=== PATIENT | female | born 1945 | race Caucasian/White ===

== ENCOUNTER 2022-10-10 12:08 | Emergency (ER) | payer MEDICARE, BC, SELFPAY ==
--- OUTSIDE RECORDS SUMMARY | 2022-10-10 12:36 | XMS_ITS | Clinical Summary ---
:1945 Author Organization [employer] [facility] [place] [address] Care Team Providers Name Role Phone Autumn Escobedo Unavailable [phone] Behzad Pennington MD Primary Care Provider Allergies No known active allergies Medications Medication Sig Dispensed Refills Start Date End Date Status ZOLOFT ORAL 150 mg 0 Active AMBIEN ORAL 3 mg at bedtime 0 Ac tive MEDICATION ORDER apap/codeine 30mg 0 Active COMPOSER daily TRAZODONE 150 MG TAB daily 0 Active CENTRUM SILVER ORAL daily 0 Active CALCARB 600 WITH None Entered 0 Active VITAMIN D ORAL DIAZEPAM 5 MG TAB 5 mg Oral EVERY 6 30 0 12/01/2007 Active HOURS NEEDED HYDROCODONE-ACETAMINOP 1-2 tabs orally 120 0 12/01/2007 Active HEN 5 MG-500 MG TAB every 4-6 hours for pain SENNOSIDES-DOCUSATE 1-4 tablet Oral 90 0 12/01/2007 Active SODIUM 8.6 MG-50 MG TWICE A DAY TAB Active Problems Problem Noted Date Sensorineural hearing loss, bilateral 08/14/2012 Disorder of bone and cartilage, unspecified 03/27/2007 Immunizations Name Administration Dates Next Due Hepatitis A (Adult) 07/18/2007, 06/21/2006 Inactivated Polio Vaccine 06/21/2006 Meningococcal Vaccine 09/04/1998 Tdap 06/21/2006 Family History Medical History Relation Name Comments Psychiatric illness Father Heart Disease Mother Heart attack age 72 Relation Name Status Comments Father (Age 60's) committed rae icide Mother Social History Tobacco Use Types Packs/Day Years Used Date Never Smoker Tobacco Cessation: Counseling Given: Yes Alcohol Use Standard Drinks/Week Comments Not Asked 0 (1 standard drink = 0.6 oz pure alcoho l) Sex Assigned at Date Recorded Not on file Obstetrics History Last Filed Vital Signs Vital Sign Reading Time Taken Comments Blood Pressure 102/64 08/24/2016 1:52 PM CDT Pulse 60 08/24/2016 1:52 PM CDT Temperature 36.4 ??C (97.5 ??F) 04/09/2014 2:29 PM CDT Respiratory Rate 14 08/24/2016 1:52 PM CDT Oxygen Saturation 99% 04/21/2014 9:52 AM CDT Inhaled Oxygen Concentration - - Weight 46.4 kg (102 lb 6.4 oz) 08/24/2016 1:52 PM CDT Height 157.5 cm (5' 2.01) 04/21/2014 9:52 AM CDT Body Mass Index 18.72 04/21/2014 9:52 AM CDT Plan of Treatment Health Maintenance Due Date Last Done Comments COVID-19 vaccine series (#1) 1945 Depression screening for age 12+ 1957 BMI (ht and wt on same day) for age 18+ 1963 Hepatitis C screening for age 18-79 1963 Zoster (shingles) series for age 50+ (1 of 2) 1995 DEXA/DXA scan for age 65+ 2010 Pneumococcal series for age 65+ (1 - PCV) 2010 Tetanus booster 06/21/2016 06/21/2006 Influenza for age 65+ 07/21/2022 Tdap Completed 06/21/2006 Results Not on filefrom Last 3 Months Insurance Payer Benefit Plan / Subscriber ID Effective Dates Phone Addre ss Type Group BLUE [employer]OSS MR BL[employer] [id number] 2015-Present [address] [address] [place] 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
== END 2022-10-10 12:47 | disposition left against medical advice (07) ==
LOC: ED 12:30
PROVIDERS: PCP Family Medicine
DX: Z53.29 Procedure and treatment not carried out because of patient's decision for other reasons (principal)

== ENCOUNTER 2022-11-17 14:23 | Outpatient (CLI) | payer MEDICARE, BC, SELFPAY ==
--- NOTE | 2022-11-17 14:30 | CRLHL7_ITS ---
For Patients: As a result of the Cures Act, medical imaging exams and procedure reports are released immediately into your electronic medical record. You may view this report before your referring provider. If you have questions, please contact your health care provider. DXA BONE MINERAL DENSITY STUDY 11/17/2022 Current height (in): 61.0. Weight (lb): 102.0. Menopause age: 33. Ethnicity: White. 1. Have you had a previous hip or vertebral fracture? No. 2. Have you had any fractures during your adult life which did not result from significant trauma (e.g., auto accident)? No. 3. Did either of your parents have a hip fracture? No. 4. Do you smoke? No. 5. Have you ever taken Glucocorticoids? No. 6. Do you have rheumatoid arthritis? No. 7. Do you have secondary osteoporosis? No. 8. Do you drink 3 or more alcoholic drinks per day? No. 9. Are you being treated for osteoporosis? Yes. 10. Have you ever taken any of the following medications: Actonel, Evista, Fosamax, Miacalcin, Reclast, Boniva, Forteo, HRT (i.e. estrogen/hormone therapy), Protelos, Prolia, Vitamin D, Calcium, other ??? please specify. ANSWER: Yes, Fosamax, vitamin D, calcium. 11. Do you have any of the following medical conditions: Anorexia or bulimia, asthma or emphysema, end stage renal disease, hyperparathyroidism, any seizure disorders, cancer, inflammatory bowel diseases, hysterectomy, other ??? please specify. ANSWER: Yes, hysterectomy. 12. What was your maximum height (inches)? 63. 13. Do you perform weight bearing exercise regularly? Yes. 14. Do you regularly consume dairy products? Yes. 15. Do you drink caffeinated beverages? No. 16. At what age did your period start? 12. 17. Are you premenopausal? No. 18. How many full term pregnancies have you had? 3. 19. Have you ever missed your period for more than 6 months in a row (not including or menopause)? No. TECHNIQUE: Bone mineral density study was performed using the Zumbl. FINDINGS: The results of the study expressed as bone mineral density (BMD) are as follows: Lumbar spine L1 and 4: BMD: 1.123 g/cm2. T-score: 0.8. Z-score: 3.3. Neck Left: BMD: 0.782 g/cm2. T-score: -0.6. Z-score: 1.6. Total Left: BMD: 0.719 g/cm2. T-score: -1.8. Z-score: 0.1. Radius Left 33%: BMD: 0.511 g/cm2. T-score: -3.0. Z-score: -0.6. IMPRESSION: Osteoporosis. *Comparison exams done prior to 04/2020 were performed on different unit, [facility]. COMPARISON: Compared with scan of 05/07/2020, the bone mineral density has decreased by 5.0 percent at the spine and decreased by 2.4 percent at the hip and decreased by 5.0 percent at the forearm. Ed Fernandes M.D. Diagnostic Radiologist [email or web address] / be/Dictated by: Ed Fernandes MD @ 11/17/2022 3:30:00 PM (Electronically Signed)
== END 2022-11-17 14:24 | disposition home or self-care (01) ==
LOC: RAD 14:24
PROVIDERS: PCP Family Medicine; Visit Provider Family Medicine
DX: M81.0 Age-related osteoporosis without current pathological fracture (principal)
CPT/HCPCS: 77080

== ENCOUNTER 2023-05-11 15:21 | Outpatient (CLI) | payer MEDICARE, BC, SELFPAY ==
--- OUTSIDE RECORDS SUMMARY | 2023-05-11 15:23 | XMS_ITS | Continuity of Care Document ---
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 Role Phone Unavailable Unavailable Unavailable Medications Medication Instructions Dosage Effective Dates (start - stop) Status Comments HYDROCODONE BIT/ACETAMINOPHEN 5 MG-500MGCAPSULE every 8 hours as needed - Active Vicodin 5 mg-500 mg Tab 1-2 every 6-8 hours - Active Procedures Procedure Date Office/outpatient visit,est, low 2007 Low back disk surgery/decompress 2007 PA Assist Low back disk surgery/decompre ss Office consultation, moderate 7 X-ray exam lwr spine, min 4 views Advance Directives Directive Yes / No Effective Date File Name No Information Encounters Encounter Description Practice Location Reason(s) For Visit Diagnoses Date Provider Providers Copied on Encounter Z [facility], [address] [place], [place] [address]ite [address] [place] [address], [address], [place] tel:[phone] [employer] No Information 8 No Information Z [facility], [address] [place] [address], [address], [place] tel:[phone] [employer] No Information 8 Savanah Flores. [facility], [address] [place] [address], [address], [place], [place], [id number], [place]. tel:[phone] Office/outpa tient visit,est, low Z [facility], [address] [place] [address], [place], [address], [place] [phone] [employer] No Information 8 No Information Z [facility], [address] [address], [place], [address], [place] tel:[phone] [facility] No Information 8 No Information Office consultation , moderate Z [facility], [address] [address], [place], [address], [place] [phone] [employer] No Information 7 No Information Family History Family Member Type Diagnosis Age At Onset No Information Payers Payer name Insurance type Covered republican ID Authorpinky white(s) [facility] [id number] Social History Type Description Quantity Date Captured Comments Sex Female Smoking Status No Information Chief Complaint And Reason For Visit No Information Reason For Referral Reason For Referral No Information Plan Of Treatment Date Type Action Status No Information History Of Present Illness Encounter Date Complaint History Of Prese nt Illness No Information Functional Status Date Functional Assessmen t No Information Instructions Date Instruction Additional Infor mation No Information Assessments Type Assessment Date No Information Patient Care Teams Name Effective Dates (start - stop) Status Members No Information
--- OUTSIDE RECORDS SUMMARY | 2023-05-11 15:23 | XMS_ITS | Continuity of Care Document ---
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 Role Phone Federico Holley Unavailable Unavailable Allergies, Adverse Reactions, Alerts Substance Reaction Status Criticality No Known Allergies Active No Inform ation Medications Medication Instructions Dosage Effective Dates (start - stop) Status Comments ZOLOFT (unknown strength) take 1 tablet by oral route every day Not Available - Active CALCIUM (unknown strength) Not Available - Active TURMERIC (unknown strength) Not Available - Active Procedures Procedure Date Office/outpatient Visit, [facility] Advance Directives Directive Yes / No Effective Date File Name No Information Encounters Encounter Description Practice Location Reason(s) For Visit Diagnoses Date Provider Providers Copied on Encounter [facility], [address], [place], [place], [id number], [place] tel:[phone] ROBERTA Azar Primary generalized (osteo)arthritisPo lyneuropathy, unspecified 9 Wendy Caballero. [address], [address], [id number], [place]. tel:[phone] Office/outpa tient Visit, [facility], [address], [place], [place], [id number], [place] tel:[phone] ROBERTA Azar Neuropathy (chief complaint) NeuropathyPrimary osteoarthritis involving multiple joints 9 Wendy Caballero. [address], [place], [place], [id number], [place]. tel:[phone] Referring Provider: Elva Levi , [address], [place], [address] . tel:[phone] Family History Family Member Type Diagnosis Age At Onset Father Problem (finding) gout Payers Payer name Insurance type Covered libertarian ID Authorpinky white(s) Medicare [id number] [place] PPO [id number] Social History Type Description Quantity Date Captured Comments Alcohol Use Details Unknown Caffeine Use Details Unknown Tobacco Use Status No Information Smoking Status No Information Sex Female Chief Complaint And Reason For Visit No Information Reason For Referral Reason For Referral No Information Plan Of Treatment Date Type Action Status Referral Ordered: Neurology (related to Polyneuropathy, unspecified) ordered Referral Ordered: Referrals: Neurology. Diagnostic testing ordered Referral Ordered: Neurology (related to Neuropathy) ordered Referral Ordered: Referrals: Neurology. Consult. Diagnostic testing ordered History Of Present Illness Encounter Date Complaint History Of Prese nt Illness Neuropathy Functional Status Date Functional Assessmen t No Information Instructions Date Instruction Additional Infor mation No Information Assessments Type Assessment Date assessment Primary generalized (osteo)arthr itis assessment Polyneuropathy, unspecified Patient Care Teams Name Effective Dates (start - stop) Status Members No Information
--- NOTE | 2023-05-11 15:30 | CRLHL7_ITS ---
For Patients: As a result of the 21st Century Cures Act, medical imaging exams and procedure reports are released immediately into your electronic medical record. You may view this report before your referring provider. If you have questions, please contact your health care provider. INDICATION: Low back pain. TECHNIQUE: Multiplanar multisequence noncontrast MR images acquired through the lumbar spine. COMPARISON: Lumbar spine radiographs 10/17/2022. FINDINGS: Kzlp-hr-vaflalyj biconvex lumbar curvature. Exaggerated lumbar lordosis. Mild chronic L1 vertebral body anterior wedging. No acute fracture. No T1 hypointense marrow replacing lesions. Normal conus terminates at L1. T12-L1: Moderately advanced disc height loss. Circumferential disc bulge. Mild facet arthropathy. No spinal canal or neural foraminal narrowing. L1-2: Mild retrolisthesis. Advanced right eccentric disc height loss. Right eccentric disc bulging and endplate spondylitic ridging. Mild facet arthropathy. Minimal spinal canal narrowing. Ewwr-nn-qcdwcwyo right lateral recess narrowing. No neural foraminal narrowing. L2-3: Mild retrolisthesis. Advanced disc height loss. Posterior disc bulging endplate spondylitic ridging. Mild facet arthropathy. Mild spinal canal narrowing. Mild to moderate right lateral recess narrowing. Mild right without left neural foraminal narrowing. L3-4: Mild grade 1 anterolisthesis. Moderate disc degeneration and disc height loss. Posterior disc bulge. Advanced facet arthropathy. Moderate spinal canal narrowing. Moderately severe stenosis of the lateral recesses. No neural foraminal narrowing. Mild edema in the left articulating facets. L4-5: Advanced disc degeneration and left eccentric disc height loss. Left eccentric disc bulging and endplate spondylitic ridging. Advanced left and moderate right facet arthropathy. Mild spinal canal narrowing. Yqwu-og-ewupdkqn narrowing of the lateral recesses. Moderately severe left without right neural foraminal narrowing. L5-S1: Moderate disc degeneration. Posterior disc bulging and endplate spondylitic ridging. Advanced facet arthropathy. Thickening of the flavum. Mild spinal canal narrowing. Mild to moderate lateral recess narrowing. Mild left without right neural foraminal narrowing. Sacroiliac joint degenerative changes. IMPRESSION: 1. 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 Moderate spinal canal narrowing. Mild edema in the left articulating facets likely represents a stress response. 2. At L4-5, moderately severe left neural foraminal stenosis. Uxpb-eu-vukrwuso narrowing of the lateral recesses. 3. At L5-S1, mild to moderate narrowing of the lateral recesses. Dictated by Aleksandar Gardner MD @ 05/13/2023 1:02:48 PM (Electronically Signed)
== END 2023-05-11 15:22 | disposition home or self-care (01) ==
LOC: MRI 15:22
PROVIDERS: PCP Family Medicine; Visit Provider Family Medicine
DX: M54.50 Low back pain, unspecified (principal); M48.061 Spinal stenosis, lumbar region without neurogenic claudication; M51.27 Other intervertebral disc displacement, lumbosacral region
CPT/HCPCS: 72148

== ENCOUNTER 2023-07-13 12:41 | Outpatient (RCR) | payer MEDICARE, BC, SELFPAY ==
--- NOTE | 2023-06-28 09:38 | URNOTE ---
Received request for prior auth for REclast ([id number]). Pt has medicare primary, prior authorization is not required as services are based on medical necessity and follow medicare guidelines.
[2023-07-13 13:44] LABS: Basophils Absolute Auto 0.07 K/uL (0.00-0.30); Basophils Percent Auto 1.1 % (0.0-3.0); Eosinophils Absolute Auto 0.06 K/uL (0.00-0.50); Eosinophils Percent Auto 0.9 % (0.0-7.0); Hematocrit 42.9 % (33.0-51.0); Hemoglobin* 13.7 gm/dL (12.0-16.0); Immature Granulocytes Abs Auto 0.01 K/uL (0.00-0.30); Immature Granulocytes Pct Auto 0.2 %; Lymphocytes Absolute Auto 1.47 K/uL (0.90-2.90); Lymphocytes Percent Auto 22.3 % (20-44); Mean Corpuscular HGB Conc 32 gm/dL (32-36); Mean Corpuscular Hemoglobin 31 pg (26-34); Mean Corpuscular Volume 96 fL (80-100); Monocytes Percent Auto 6.5 % (0.0-11.0); Neutrophils Absolute Auto 4.55 K/uL (1.7-7.0); Platelet Count* 248 K/uL (140-440); RDW Coefficient of Variation % 13.1 % (11.5-15.5); Red Blood Count 4.46 m/uL (4.00-5.20); White Blood Count* 6.59 K/uL (4.50-11.00)
[2023-07-13 13:54] LABS: Slide Review Reflex No
[2023-07-13 14:01] LABS: Chloride* 103 mmol/L (96-114); Potassium* 4.9 mmol/L (3.6-5.1); Sodium* 139 mmol/L (135-149)
[2023-07-13 14:03] LABS: Creatinine* 0.8 mg/dL (0.5-1.5); Est. Creatinine Clearance* 33.53; Estimated Glomerular Filt Rate 75 ml/min
[2023-07-13 14:04] LABS: Anion Gap 6 mEq/L (7-15); Blood Urea Nitrogen* 30 mg/dL (7-30); Calcium* 9.5 mg/dL (8.4-10.6); Carbon Dioxide* 30 mmol/L (20-32); Glucose* 98 mg/dL (60-115)
[2023-07-13 14:16] VITALS: BP 99/59; PULSE 69; RESP 16; TEMP 37.1; O2SAT 100
[2023-07-14 09:02] LABS: Cholesterol* 221 mg/dL (90-199); Triglycerides* 137 mg/dL (40-149)
[2023-07-14 09:03] LABS: HDL Cholesterol* 101 mg/dL (>=50); LDL Cholesterol Calculated 93 mg/dL (<100)
== END 2024-01-09 23:59 | disposition home or self-care (01) ==
LOC: CCIC 12:41
PROVIDERS: PCP Family Medicine; Referring Provider Family Medicine; Visit Provider Family Medicine
DX: M81.0 Age-related osteoporosis without current pathological fracture (principal)
CPT/HCPCS: 36415; 80048; 80061; 85025; 96376; J3489

== ENCOUNTER 2024-02-27 07:54 | Outpatient (RCR) | payer MEDICARE, BC, SELFPAY | END 2024-02-27 09:54 | disposition home or self-care (01) | PROVIDERS: PCP Family Medicine; Visit Provider Orthopaedic Surgery Sports Medicine | DX: M16.12 Unilateral primary osteoarthritis, left hip (principal); Z51.89 Encounter for other specified aftercare | CPT/HCPCS: 97161; 97535 ==

== ENCOUNTER 2024-03-04 08:46 | Day surgery (SDC) | payer MEDICARE, BC, SELFPAY ==
[2024-03-04] VITALS (19 sets, daily range): BP systolic 82–124; BP diastolic 39–85; PULSE 51–98; RESP 12–18; TEMP 35.8–37; O2SAT 95–100; BMI 22.6
--- OUTSIDE RECORDS SUMMARY | 2024-03-04 08:51 | XMS_ITS | Clinical Summary ---
Author Name Unknown Organization [facility] Address [address] [place] [address] Phone Care Team Providers Care Licensed Final Expense Agents Name Role Phone Harini Scott MD Primary Care Provider Provider, Generic External Data Unavailable Unavailable Allergies No known active allergies Medications Medication Sig Dispensed Refills Start Date End Date Status FISH OIL-CANOLA OIL-VIT D3 PO Active fluorouracil (Efudex) 5 % cream 02/18/2021 Active Glucosamine HCl (GLUCOSAMINE PO) Take 1 capsule by mouth 1 (one) time each day. Active calcium carbonate-vitamin D 600-200 MG-UNIT tablet Take by mouth. Active Multiple Vitamins-Minerals (multivit-mineral -iron-lutein) tablet Take by mouth in the morning. Active Calcium 280 MG tablet Take 1 tablet by mouth 1 (one) time each day. Active triamcinolone (Kenalog) 0.1 % cream 10/25/2021 Active sertraline (Zoloft) 100 MG tablet Take by mouth. Active montelukast (Singulair) 10 MG tabletIndications :Allergic rhinitis, unspecified seasonality, unspecified trigger Take 1 tablet (10 mg) by mouth at bedtime. 90 tablet 01/14/2022 Active donepezil (Aricept) 10 MG tablet TAKE 1/2 TABLET BY MOUTH AT BEDTIME FOR 2 WEEKS THEN TAKE 1 TABLET AT BEDTIME 10/23/2023 Active gabapentin (Neurontin) 300 MG capsule TAKE 1 CAPSULE ORALLY TWICE A DAY 10/24/2023 Active HYDROcodone-aceta minophen (Delray) 5-325 MG tablet 09/15/2023 Active zolpidem (Ambien) 5 MG tablet Take 1 tablet (5 mg) by mouth if needed at bedtime for sleep. 10/24/2023 Active valACYclovir (Valtrex) 1 g tablet TAKE 2 TABLETS BY MOUTH TWICE A DAY FOR 1 DAY 10/24/2023 Active traZODone (Desyrel) 100 MG tablet Take 2 tablets (200 mg) by mouth at bedtime. 11/08/2023 Active Azelastine HCl 137 MCG/SPRAY solutionIndicatio ns:Allergic rhinitis, unspecified seasonality, unspecified trigger SPRAY 1 SPRAY INTO EACH NOSTRIL IN THE MORNING AND BEFORE BEDTIME DIRECTED 20 mL 1 02/05/2024 Active azelastine (Astelin) 0.1 % nasal sprayIndications: Allergic rhinitis, unspecified seasonality, unspecified trigger Administer 1 spray into each nostril in the morning and 1 spray before bedtime. Use in each nostril as directed. 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 Osteopenia 12/16/2022 Allergic rhinitis 01/14/2022 History of COVID-19 10/27/2021 Hearing aid worn 10/27/2021 History of Lyme disease 11/22/2019 History of squamous cell carcinoma 11/22/2019 Insomnia 11/22/2019 Osteoporosis 11/22/2019 Overview: Annotation - 22Nov2019: TOOK FOSAMAX IN PAST 11/2021-hip osteopenia Depression, major, in partial remission 11/22/19 20 Encounters Date Type Department Care Team Description 02/04/2024 Refill Harini Scott MD [address] [place] [address] Harini Scott MD Allergic rhinitis, unspecified seasonality, unspecified trigger 02/01/2024 Orders Only Harini Scott MD [address] [place] [address] Harini Scott MD 02/01/2024 Telephone Harini Scott MD [address] [place] [phone] Harini Scott MD 01/18/2024 11:30 AM [facility] Office Visit Harini Scott MD [address] [place] [address] Harini Scott MD Anxiety (Primary Dx) 01/12/2024 Orders Only Harini Scott MD [address] [place] [address] Harini Scott MD 12/18/2023 11:15 AM [facility] Office Visit Harini Scott MD [address] [place] [address] Harini Scott MD Allergic rhinitis, unspecified seasonality, unspecified trigger (Primary Dx); Anxiety; Insomnia, unspecified type from Last 3 Months Immunizations Name Administration Dates Next Due Hep A, Adult 07/18/2007,06/21/2006 Hep B, adult 04/22/2013,08/16/2012,07/12/2012 IPV 06/21/2006 Influenza, High Dose Seasona l, Preservative Free 10/06/2019,08/20/2019 Influenza, High-dose Seasona l, Quadrivalent, Preservative Free 08/20/2021,08/10/2020 Influenza, injectable, quadr ivalent, preservative free 07/31/2022,08/13/2020,08/29/2018,08/16,11/28/2015,08/08/2013,08/16/2012 ,08/26/2011,08/27/2010,08/17/2009 Meningococcal, Unknown Serogroups 09/04/1998 Moderna Covid-19 Bivalent Vaccine 07/31/2022 Moderna Sars-cov-2 Vaccine 02/22/2022,01/26/2021 ,12/26/2020 Pneumococcal Conjugate PCV 13 06/18/2015 Pneumococcal Polysaccharide PPV23 06/27/2018, TD (adult), 2 Lf tetanus tox oid, preservative free, adsorbed 05/15/2018 Tdap 08/26/2011,06/21/2006 Typhoid, ViCPs 07/02/2012 Zoster, Recombinant 08/01/2019,06/27/2018 Zoster, live 11/21/2016 Social History Tobacco Use Types Packs/Day Years Used Date Smoking Tobacco: Never Smokeless Tobacco: Never Alcohol Use Standard Drinks/Week Comments Yes 7 (1 standard drink = 0.6 oz pur e alcohol) Social Connection and Isolation Panel [NHANES] A nswer Date Recorded In a typical week, how many times do you talk on the phone with family, friends, or neighbors? Three times a week 11/21/19 How often do you get togethe r with friends or relatives? Once a week 11/21/2023 Attends Bahai Services Not on file 11/21 Do you belong to any clubs o r organizations such as zoroastrianism groups, unions, fraternal or athletic groups, or school groups? Yes 11/21/2023 How often do you attend meet ings of the clubs or organizations you belong to? 1 to 4 times per year 11/21/2023 Are you , , di vorced, , never , or living with a partner? 11/21/2023 AUDIT-C Answer Date Recorded Q1: How often do you have a drink containing alcohol? 4 or more times a week 11/21/2023 Q2: How many drinks containi ng alcohol do you have on a typical day when you are drinking? 1 or 2 Q3: How often do you have si x or more drinks on one occasion? Never 11/21/2023 Overall Financial Resource Strain (CARDIA) Answe r Date Recorded How hard is it for you to pa y for the very basics like food, housing, medical care, and heating? Not hard at all 11/21/2023 PHQ-2 Answer Date Recorded Patient Health Questionnaire-2 Score 4 11/21/2023 [facility] [place] of Occupat ional Health - Occupational Stress Questionnaire Answer Date Recorded Do you feel stress - tense, restless, nervous, or anxious, or unable to sleep at night because your mind is troubled all the time - these days? Rather much 11/21/2023 Exercise Vital Sign Answer Date Recorde d On average, how many days pe r week do you engage in moderate to strenuous exercise (like a brisk walk)? 4 days 11/21/2023 On average, how many minutes do you engage in exercise at this level? 50 min 11/21/2023 Hunger Vital Sign Answer Date Recorded Within the past 12 months, y ou worried that your food would run out before you got the money to buy more. Never true 11/21/19 24 Within the past 12 months, t he food you bought just didn't last and you didn't have money to get more. Never true 11/21/2023 PRAPARE - Transportation Answer Date Re corded In the past 12 months, has l ack of transportation kept you from medical appointments or from getting medications? No 12/2023 In the past 12 months, has l ack of transportation kept you from meetings, work, or from getting things needed for daily living? No 11/21/2023 Housing Stability Vital Sign Answer Waqas e Recorded In the last 12 months, was t here a time when you were not able to pay the mortgage or rent on time? No 11/21/2023 In the last 12 months, how many places have you lived? 2 11/21/2023 In the last 12 months, was t here a time when you did not have a steady place to sleep or slept in a half-way (including now)? No 11/21/2023 Sex and Gender Information Value Date Recorded Sex Assigned at Not on file Gender Identity Not on file Sexual Orientation Not on file Last Filed Vital Signs Vital Sign Reading Time Taken Comments Blood Pressure 136/74 11/21/2023 8:50 AM MST Pulse 67 11/21/2023 8:50 AM MST Temperature 36.7 ??C (98 ??F) 11/21/2023 8:50 AM MST Respiratory Rate - - Oxygen Saturation 98% 11/21/2023 8:50 AM MST Inhaled Oxygen Concentration - - Weight 45.8 kg (101 lb) 11/21/2023 8:50 AM MST Height 156.2 cm (5' 1.5) 11/21/2023 8:50 AM MST w/ shoes Body Mass Index 18.77 11/21/2023 8:50 AM MST Plan of Treatment Health Maintenance Due Date Last Done Comments RSV 60+ Series (1 - 1-dose 60+ series) 2005 COVID-19 Vaccine ( season) 2023 07/31/2022, 02/22/2022, 01/26/2021, Additional history exists Influenza Vaccine (Season Ended) 2024 07/31/2022, 08/20/2021, 08/13/2020, Additional history exists Bone Density Scan 10/28/2024 10/28/2022, , 11/23/2021, Additional history exists Medicare Annual Wellness (AWV) 11/22/2024 11/21/2023, 11/21/2022 Hepatitis A Vaccines Aged Out 07/18/2007, 06/21/20 06 No longer eligible based on patient's age to complete this topic Hepatitis B Vaccines Completed 04/22/2013, 08/16/2012, 07/12/2012 DTaP/Tdap/Td Vaccines Discontinued 05/15/2018 , 08/26/2011, 06/21/2006 Pneumococcal Vaccine: 65+ Years Completed 06/27/2018, 06/18/2015, 08/09/2010 Zoster Vaccine Discontinued 08/01/2019, 0806/2018, 11/21/2016 Hepatitis C Screening Completed 10/27/2021 HIB Vaccines Aged Out No longer eligi ble based on patient's age to complete this topic HPV Vaccines Aged Out No longer eligi ble based on patient's age to complete this topic Meningococcal Vaccine Aged Out No juan carlos genny eligible based on patient's age to complete this topic RSV Series Aged Out No longer eligible based on patient's age to complete this topic Rotavirus Vaccines Aged Out No longer eligible based on patient's age to complete this topic Procedures Procedure Name Priority Date/Time Associated Diagnosis Comments DEXA BONE DENSITY 10/28/2022 2:2 6 PM [facility] HEPATITIS C ANTIBODY Routine 10/27/2021 11:05 AM [facility] Need for hepatitis C screening test from Last 3 Months or Most Recently Relevant to Health Maintenance Results * DEXA BONE DENSITY (10/28/2022 2:26 PM [facility]) Anatomical Region Laterality Modality Body Radiographic Nakia ging [facility] IMG DXA PRO CEDURES * Hepatitis C antibody (10/27/2021 11:05 AM [facility]) Hepatitis C Ab Nonreactive NON-REACT YARY 10/27/2021 3:30 PM [facility] Blood Venous blood specimen / Unknown Venipuncture / Unknown 10/27/2021 11:05 AM [facility] 10/27/2021 11:05 AM [facility] Narrative [facility] - 10/27/2021 3:30 PM [facility] REACTIVE: Presumptive evidence of antibodies to HCV; follow CDC recommendations for supplemental testing. GRAYZONE: Antibodies to HCV may or may not be present. Another specimen should be obtained from the individual for further testing. NONREACTIVE: Antibodies to HCV not detected; does not exclude early acute HCV infection. Harini Scott MD LAB BLOOD ORDERABLES [facility] [address] [place] [address] from Last 3 Months or Most Recently Relevant to Health Maintenance Care Teams Licensed Final Expense Agents Relationship Specialty Start Date End Date Harini Scott MD [address] [place] [address] PCP - General 11/20/20 Provider, Generic External Data 10/27/21
--- OUTSIDE RECORDS SUMMARY | 2024-03-04 08:51 | XMS_ITS | Encounter Summary ---
Author Name Unknown Organization [facility] Address [address] [place] [address] Phone Care Team Providers Care Italian Lecturer Name Role Phone Harini Scott MD Primary Care Provider [phone] Provider, Generic External Data Unavailable Unavailable Reason for Visit * Reason Comments Follow-up Encounter Details Date Type Department Care Team (Late st Contact Info) Description 12/18/2023 11:15 AM [facility] Office Visit Harini Scott MD [address] [place] [address] Harini Scott MD [address] [place] [address] Allergic rhinitis, unspecified seasonality, unspecified trigger (Primary Dx); Anxiety; Insomnia, unspecified type Social History Tobacco Use Types Packs/Day Years [...] or relatives? Once a week 11/21/2023 Attends Confucianist Services Not on file 11/21 Do you belong to any clubs o r organizations such as catholic groups, unions, fraternal or athletic groups, or [...] Recorded Patient Health Questionnaire-2 Score 4 11/21/2023 [facility] of Occupat ional Health - Occupational Stress [...] place to sleep or slept in a fdc (including now)? No 11/21/2023 Sex and Gender Information Value Date Recorded Sex Assigned at Not on file Gender Identity Not on file Sexual Orientation Not on file documented as of this encounter Patient Instructions * Patient Instructions* Jeanne Asencio MA - 12/18/2023 11:15 AM MST Try azelastine. Cont counseling. Cont buspar but increase to 10 mg twice a day. Thv in a month. documented in this encounter Progress Notes * Harini Scott MD - 12/18/2023 11:15 AM MST Chief Complaint Patient presents with Follow-up Hpi Kylie is here for fu anxiety. She was prescribed buspar 5 mg bid. She really likes buspar. She was referred to roman randhawa for counseling and she really like her. She has insomnia which she thinksis from anxiety. She has a gi appt. She needs cataract surgery in the right eye. She has allergic rhinitis and would like to see an psychology clinician. Otc antihistamines do not help. Pe Neuro-nonfocal. Kylie was seen today for follow-up. Diagnoses and all orders for this visit: 1. Allergic rhinitis, unspecified seasonality, unspecified trigger - azelastine (Astelin) 0.1 % nasal spray; Administer 1 spray into each nostril in the morning and 1spray before bedtime. Use in each nostril as directed. 2. Anxiety - busPIRone (Buspar) 5 MG tablet; Take 2 tablets (10 mg) by mouth in the morning and 2 tablets (10 mg) before bedtime. 3. Insomnia, unspecified type Plan Try azelastine. Cont counseling. Cont buspar but increase to 10 mg twice a day. Thv in a month. documented in this encounter Plan of Treatment Not on file documented as of this encounter Visit Diagnoses Diagnosis Allergic rhinitis, unspecified seasonality, unspecified trigger- Primary Anxiety Anxiety state, unspecified Insomnia, unspecified type documented in this encounter Care Teams Italian Lecturer Relationship Specialty Start Date End Date Harini Scott MD [address] [facility] [address] [place] [phone] PCP - General 11/20/20 Provider, Generic External Data 10/27/21 documented as of this encounter
--- OUTSIDE RECORDS SUMMARY | 2024-03-04 08:51 | XMS_ITS | Referral Summary ---
Author Name Unknown Organization [facility] Address [address] [place] [address] Phone Care Team Providers Care Real Estate Associate Attorney Name Role Phone Harini Scott MD Primary Care Provider [phone] Provider, Generic External Data Unavailable Unavailable Encounters Date Type Department Care Team Description 02/04/2024 Refill Harini Scott MD [address] [place] [address] Harini Scott MD Allergic rhinitis, unspecified seasonality, unspecified trigger 02/01/2024 Orders Only Harini Scott MD [address] [place] [address] Harini Scott MD 02/01/2024 Telephone Harini Scott MD [address] [place] [address] Harini Scott MD 01/18/2024 11:30 AM [facility] Office Visit Harini Scott MD [address] [place] [address] Harini Scott MD Anxiety (Primary Dx) 01/12/2024 Orders Only Harini Scott MD [address] [place] [address] Harini Scott MD 12/18/2023 11:15 AM [facility] Office Visit Harini Scott MD [address] [place] [address] Harini Scott MD Allergic rhinitis, unspecified seasonality, unspecified trigger (Primary Dx); Anxiety; Insomnia, unspecified type from Last 3 Months Allergies No known active allergies Medications Medication [...] TWICE A DAY 10/24/2023 Active HYDROcodone-aceta minophen ([place]) 5-325 MG tablet 09/15/2023 Active zolpidem (Ambien) [...] Depression, major, in partial remission 11/22/19 20 Immunizations Name Administration Dates Next Due Hep [...] or relatives? Once a week 11/21/2023 Attends Zoroastrian Services Not on file 11/21 Do you belong to any clubs o r organizations such as latter-day groups, unions, fraternal or athletic groups, or [...] Recorded Patient Health Questionnaire-2 Score 4 11/21/2023 [facility] [place] of Occupat ional Health - Occupational Stress [...] place to sleep or slept in a penitentiary (including now)? No 11/21/2023 Sex and Gender [...] 11/21/2023 8:50 AM MST Plan of Treatment Not on file Procedures Procedure Name Priority Date/Time Associated Diagnosis Comments DEXA BONE DENSITY 10/28/2022 2:2 6 PM MST HEPATITIS C ANTIBODY Routine 10/27/2021 11:05 AM [facility] Need for hepatitis C screening test from Last 3 Months or Most Recently Relevant to Health Maintenance Results * DEXA BONE DENSITY (10/28/2022 2:26 PM [facility]) Anatomical Region Laterality Modality Body Radiographic Nakia ging [facility] IMG DXA PRO CEDURES * Hepatitis C antibody (10/27/2021 11:05 AM [facility]) Hepatitis C Ab Nonreactive NON-REACT YARY 10/27/2021 3:30 PM [facility] [place] [facility] Blood Venous blood specimen / Unknown Venipuncture / Unknown 10/27/2021 11:05 AM [facility] 10/27/2021 11:05 AM [facility] Narrative [facility] - 10/27/2021 3:30 PM [facility] REACTIVE: Presumptive evidence of antibodies to HCV; follow CDC recommendations for supplemental testing. GRAYZONE: Antibodies to HCV may or may not be present. Another specimen should be obtained from the individual for further testing. NONREACTIVE: Antibodies to HCV not detected; does not exclude early acute HCV infection. Harini Scott MD LAB BLOOD ORDERABLES [facility] [address] [place] [address] from Last 3 Months or Most Recently Relevant to Health Maintenance Care Teams Real Estate Associate Attorney Relationship Specialty Start Date End Date Harini Scott MD [address] [facility] [address] [place] [phone] PCP - General 11/20/20 Provider, Generic External Data 10/27/21
--- OUTSIDE RECORDS SUMMARY | 2024-03-04 08:51 | XMS_ITS | Encounter Summary ---
Author Name Unknown Organization [facility] Address [address] [place] [address] Phone Care Team Providers Care Bull Ladle Tender Name Role Phone Harini Scott MD Primary Care Provider [phone] Provider, Generic External Data Unavailable Unavailable Encounter Details Date Type Department Care Team (Late st Contact Info) Description 02/01/2024 Orders Only Harini Scott MD [address] [place] [address] Harini Scott MD [address] [place] [address] Social History Tobacco Use Types Packs/Day Years [...] or relatives? Once a week 11/21/2023 Attends Hindu Services Not on file 11/21 Do you belong to any clubs o r organizations such as rastafarian groups, unions, fraternal or athletic groups, or [...] Recorded Patient Health Questionnaire-2 Score 4 11/21/2023 [facility] of Occupat ional Health - Occupational [...] place to sleep or slept in a group home (including now)? No 11/21/2023 Sex and Gender Information Value Date Recorded Sex Assigned at Not on file Gender Identity Not on file Sexual Orientation Not on file documented as of this encounter Plan of Treatment Not on file documented as of this encounter Visit Diagnoses Not on filedocumented in this encounter Care Teams Bull Ladle Tender Relationship Specialty Start Date End Date Harini Scott MD [address] [place] [phone] PCP - General 11/20/20 Provider, Generic External Data 10/27/21 documented as of this encounter
--- OUTSIDE RECORDS SUMMARY | 2024-03-04 08:51 | XMS_ITS | Encounter Summary ---
Author Name Unknown Organization [facility] Address [address] [place] [address] Phone Care Team Providers Care Civil Division Deputy Sheriff Name Role Phone Harini Scott MD Primary Care Provider [phone] Provider, Generic External Data Unavailable Unavailable Encounter Details Date Type Department Care Team (Late st Contact Info) Description 01/12/2024 Orders Only Harini Scott MD [address] [place] [address] Harini Scott MD [address] [place] [address] Social History Tobacco Use Types [...] or relatives? Once a week 11/21/2023 Attends Quaker Services Not on file 11/21 Do you belong to any clubs o r organizations such as yarsanism groups, unions, fraternal or athletic groups, or [...] Recorded Patient Health Questionnaire-2 Score 4 11/21/2023 [facility] of Occupat ional Health - Occupational [...] place to sleep or slept in a halfway (including now)? No 11/21/2023 Sex and Gender Information Value Date Recorded Sex Assigned at Not on file Gender Identity Not on file Sexual Orientation Not on file documented as of this encounter Plan of Treatment Not on file documented as of this encounter Visit Diagnoses Not on filedocumented in this encounter Care Teams Civil Division Deputy Sheriff Relationship Specialty Start Date End Date Harini Scott MD [address] [place] [phone] PCP - General 11/20/20 Provider, Generic External Data 10/27/21 documented as of this encounter
--- OUTSIDE RECORDS SUMMARY | 2024-03-04 08:51 | XMS_ITS | Encounter Summary ---
Author Name Unknown Organization [facility] Address [facility] [place] [address] Phone Care Team Providers Care Metallurgical Lab Technician Name Role Phone Harini Scott MD Primary Care Provider [phone] Provider, Generic External Data Unavailable Unavailable Reason for Visit * Reason Comments Med Refill Encounter Details Date Type Department Care Team (Late st Contact Info) Description 03/21/2023 Refill Harini Scott MD [address] [place] [address] Harini Scott MD [address] [place] [address] Acute left-sided low back pain without sciatica Social History Tobacco Use Types Packs/Day Years Used Date Smoking Tobacco: Never Smokeless Tobacco: Never PHQ-2 Answer Date Recorded Patient Health Questionnaire-2 Score 0 10/27/2021 Housing Stability Vital Sign Answer Waqas e Recorded In the last 12 months, was t here a time when you were not able to pay the mortgage or rent on time? No 10/27/2021 In the last 12 months, how many places have you lived? 2 10/27/2021 In the last 12 months, was t here a time when you did not have a steady place to sleep or slept in a correction (including now)? No 10/27/2021 Sex and Gender Information Value Date Recorded Sex Assigned at Not on file Gender Identity Not on file Sexual Orientation Not on file documented as of this encounter Plan of Treatment Not on file documented as of this encounter Visit Diagnoses Diagnosis Acute left-sided low back pain without sciatica documented in this encounter Care Teams Metallurgical Lab Technician Relationship Specialty Start Date End Date Harini Scott MD [address] [facility] [address] [place] [address] PCP - General 11/20/20 Provider, Generic External Data 10/27/21 documented as of this encounter
--- OUTSIDE RECORDS SUMMARY | 2024-03-04 08:51 | XMS_ITS | Encounter Summary ---
Author Name Unknown Organization [facility] Address [address] [place] [address] Phone Care Team Providers Care Production Material Coordinator Name Role Phone Harini Scott MD Primary Care Provider [phone] Provider, Generic External Data Unavailable Unavailable Reason for Visit * Reason Comments Med Refill Encounter Details Date Type Department Care Team (Late st Contact Info) Description 02/04/2024 Refill Harini Scott MD [address] [place] [address] Harini Scott MD [address] [place] [address] Allergic rhinitis, unspecified seasonality, unspecified trigger Social History Tobacco Use Types Packs/Day Years [...] or relatives? Once a week 11/21/2023 Attends Pentecostal Services Not on file 11/21 Do you belong to any clubs o r organizations such as yazidi groups, unions, fraternal or athletic groups, or [...] Recorded Patient Health Questionnaire-2 Score 4 11/21/2023 [facility] - Occupational Stress Questionnaire Answer Date Recorded [...] place to sleep or slept in a fci (including now)? No 11/21/2023 Sex and Gender Information Value Date Recorded Sex Assigned at Not on file Gender Identity Not on file Sexual Orientation Not on file documented as of this encounter Plan of Treatment Not on file documented as of this encounter Visit Diagnoses Diagnosis Allergic rhinitis, unspecified seasonality, unspecified trigger documented in this encounter Care Teams Production Material Coordinator Relationship Specialty Start Date End Date Harini Scott MD [address] [place] [id number] PCP - General 11/20/20 Provider, Generic External Data 10/27/21 documented as of this encounter
--- OUTSIDE RECORDS SUMMARY | 2024-03-04 08:51 | XMS_ITS | Encounter Summary ---
Author Name Unknown Organization [facility] Address [address] [place] [address] Phone Care Team Providers Care Benzene Operator Name Role Phone Harini Scott MD Primary Care Provider [phone] Provider, Generic External Data Unavailable Unavailable Encounter Details Date Type Department Care Team (Late st Contact Info) Description 02/01/2024 Telephone Harini Scott MD [address] [place] [address] Harini Scott MD [address] [place] [address] Social History Tobacco Use Types [...] or relatives? Once a week 11/21/2023 Attends Jewish Services Not on file 11/21 Do you belong to any clubs o r organizations such as uatsdin groups, unions, fraternal or athletic groups, or [...] Recorded Patient Health Questionnaire-2 Score 4 11/21/2023 [facility] - Occupational [...] place to sleep or slept in a longterm (including now)? No 11/21/2023 Sex and Gender Information Value Date Recorded Sex Assigned at Not on file Gender Identity Not on file Sexual Orientation Not on file documented as of this encounter Miscellaneous Notes * Telephone Encounter - Jeanne Asencio MA - 02/01/2024 10:55 AM MST Pt is requesting OxyContin states Vicodin is not doing anything for her, please send to [facility] on [address] * Telephone Encounter - Helene Vuong MA - 02/01/2024 10:18 AM MST Left voice mail to call back. * Telephone Encounter - Helene Vuong MA - 02/01/2024 9:17 AM MST Pt called stating that she is having really bad hip pain and she has been taking IBU and is not helping. Pt stated she has an apt with her Ortho dr in [place] on 02/20/24 to schedule her hip surgery,but she needs pain meds for 2 wks till she gets there. Pt stated that in the pass she was prescribeOxyContin and it work really good for her. She would like to know if could send in a rx to her local [facility] on [address]. documented in this encounter Plan of Treatment Not on file documented as of this encounter Visit Diagnoses Not on filedocumented in this encounter Care Teams Benzene Operator Relationship Specialty Start Date End Date Harini Scott MD [address] [place] [phone] PCP - General 11/20/20 Provider, Generic External Data 10/27/21 documented as of this encounter
--- OUTSIDE RECORDS SUMMARY | 2024-03-04 08:51 | XMS_ITS | Encounter Summary ---
Author Name Unknown Organization [facility] Address [address] [place] [address] Phone Care Team Providers Care Video Tape Transferrer Name Role Phone Harini Scott MD Primary Care Provider [phone] Provider, Generic External Data Unavailable Unavailable Reason for Visit * Reason Comments Follow-up Encounter Details Date Type Department Care Team (Late st Contact Info) Description 01/18/2024 11:30 AM [facility] Office Visit Harini Scott MD [address] [place] [address] Harini Scott MD [address] [place] [address] Anxiety (Primary Dx) Social History Tobacco Use Types Packs/Day Years [...] or relatives? Once a week 11/21/2023 Attends Protestant Services Not on file 11/21 Do you belong to any clubs o r organizations such as muslim groups, unions, fraternal or athletic groups, or [...] Recorded Patient Health Questionnaire-2 Score 4 11/21/2023 [facility] - Occupational Stress Questionnaire Answer Date Recorded [...] place to sleep or slept in a snf (including now)? No 11/21/2023 Sex and Gender Information Value Date Recorded Sex Assigned at Not on file Gender Identity Not on file Sexual Orientation Not on file documented as of this encounter Progress Notes * Harini Scott MD - 01/18/2024 11:30 AM MST Chief Complaint Patient presents with Follow-up Hpi Video Kylie stopped buspar because she is seeing Rachna Payne and no longer needs buspar. She takes trazodone for sleep. Pe Waived-telemed Kylie was seen today for follow-up. Diagnoses and all orders for this visit: 1. Anxiety Plan Cont counseling. Please send labs to patient. [address] , [place] [address]. Direct interaction between the patient or MPOA/Legal guardian and the billing provider Service performed via: [email or web address] Patient consent obtained: verbally Minutes spent: 11 Reason for call: anxiety, fu Summary of discussion: see plan Outcome/recommendation: see plan documented in this encounter Plan of Treatment Not on file documented as of this encounter Visit Diagnoses Diagnosis Anxiety- Primary Anxiety state, unspecified documented in this encounter Care Teams Video Tape Transferrer Relationship Specialty Start Date End Date Harini Scott MD [address] [place] [address] PCP - General 11/20/20 Provider, Generic External Data 10/27/21 documented as of this encounter
--- OUTSIDE RECORDS SUMMARY | 2024-03-04 08:52 | XMS_ITS | Continuity of Care Document ---
Author Name Unknown Address [address] [place] [address] Phone [phone] Organization [facility] Address [address] [place] [address] Care Team Providers Care Supervisor Refining Name Role Phone SALONI DURANT Primary Care Provider [phone] JOSÉ FRANCIS Orthopedic Surgeon [phone] Assessment No assessment recorded. Plan of Treatment Reminders Order Date Submit Date Provider Last Modified By Organization Details Last Modified Time Details Appointments None recorded. Lab None recorded. Referral None recorded. Procedures None recorded. Surgeries total hip arthroplas ty, anterior approach (SURG) 2023 024 [email or web address] Not available 4 12:49:37 Imaging XR, hip + pelvis, unilateral , 2 or 3 view 2023 024 5 In-Office Order, Internal Use Only DO Not Attach Compendium DO Not Attach Compendium, Do Not Delete/merge, [id number] 4 17:23:49 Medication Orders None recorded. Patient TargetsNo targets recorded. Patient InstructionsNo instructions recorded. Reason for Referral None Reported. Results Created Date Observation Date Name Description Value Unit Range Abnormal Flag LastModifiedBy Organization Detail LastModifiedTime 12/25/19 24 XR, hip + pelvi s, unila teral , 2 or 3 view No observ ation record ed. [id number] In-Office Order Internal Use Only DO Not Attach Compendium DO Not Attach Compendium, Do Not Delete/merge, [id number] 12/28/2023 17:23:48 Result Notes None recorded. Procedures Surgical History Date Name Laterality Status Provider Name and Address Organization Details Recorded Time [facility] 16:39:[facility]27[facility]23 16:39:40 [facility] 12[facility]27[facility]23 16:39:40 Imaging Results Imaging Date Name Status LastModified by Organiz ation Details LastModified Time 12/25/2023 XR, hip + pelvis, unilateral , 2 or 3 view completed [id number] In-Office Order Internal Use Only DO Not Attach Compendium DO Not Attach Compendium, Do Not Delete/merge, [id number] 12/28/2023 17:23:48 Procedure Notes None recorded. Medical Equipment None Reported. Allergies No known drug allergies Vitals Date Recorded Body height Body mass index (BMI) Body weight Heart rate Systolic blood pressure Diastolic blood pressure Provider Name and Address Organization Details Last Updated DateTime 154.94 cm 18.9 kg/m2 65067.2 4 g 62 /min 122 mm[Hg] 77 mm[Hg] Wendy Wilson [facility] 4 16:43:21 Social History Question Answer Notes LastModified by Organizat ion Details LastModified Time Tobacco Smoking Status Never Smoker Wendy Wilson [facility] 12/27/2023 16:43:44 Do You Have An Advance Directive? Yes Per Patient Information not available 12/27/2023 If Pulse Oximetry Was Done: Is The Patient's Sp02 Less Than 93% On Room Air? No [email or web address] Information not available 12/27/2023 What Was The Date Of Your Most Recent Tobacco Screening? 12/27/2023 Information not available 12/27/2023 What Is Your Relationship Status? [email or web address] Information not available 12/27/2023 Do You Or Have You Ever Used Any Other Forms Of Tobacco Or Nicotine? No Information not available 12/27/2023 Sex: Female Functional Status None recorded. Mental Status None recorded. Family History Nothing Reported. Medical History Condition Response Hearing Loss Y Gynecological HistoryNo gynecological history recorded. Obstetrics History GPAL:G 0 P 0 0 0 0 Past Encounters Encounter ID Performer Location Encounter Start Date Encounter Closed Date Diagnosis/Indication Diagnosis SNOMED-CT Code [id number] José Francis MD [facility] [address] [place] [address] 12/27/2023 16:22:23 12/27/2023 17:07:25 Pain of left hip joint [id number] 00 Health Concerns Section Related Observation LastModified by Organization Detai ls LastModified Time None Recorded Concern Status LastModified by Organization Details LastModified Time None Recorded Payers Encounter Date Sequence Insurance Name Policy Number Policy Rashid Covered Member ID Rashid Member ID Guarantor Name 12/27/2023 2 [place] - MEDICARE COST Kylie Tabor [id number] Kylie Tabor Notes Date Note Type Note Provider Name and Address Organization Details Recorded Time 12/27/2023 text/html HPI Notes: Hip(s ) Reported by patient. Location: left; groin; thigh; buttocks Quality: aching; stabbing; dull; deep; occasional; frequent; worsening Severity: severe Duration: months; weeks; continuous since onset Timing: chronic; gradual; recurrent Context: cannot identify; overuse Alleviating Factors: limited weight bearing; NSAIDs; cortisone injection Aggravating Factors: standing; walking; bending/squatting; weightbearing; changing clothes; getting out of bed; upstairs Associated Symptoms: no weakness; no tingling; no catching/locking; no popping/clicking; no radiation down leg Previous Surgery: none; s/p right ANOOP several years ago which she feels made her right leg long Prior Imaging: x ray Previous Injections: none Previous PT: helped a little Work Related: no Working: no José Francis MD [address], [place], [address], [place] [facility] [place] 12/28/2023 22:35:50 OBGyn Episode No OBEpisode recorded.
--- OUTSIDE RECORDS SUMMARY | 2024-03-04 08:52 | XMS_ITS | Referral Summary ---
Author Name Unknown Organization [facility] r Address [address] [place] [address] Care Team Providers Care Information And Data Architect Analyst Name Role Phone Pcp, Pcp - No MD Primary Care Provider Unavailab le Allergies No known active allergies Medications Medication Sig Dispensed Refills Start Date End Date Status sertraline (ZOLOFT) 100 MG tablet Take 200 mg by mouth. Active ALPRAZolam (XANAX) 0.5 MG tablet Take 0.5 mg by mouth three times a day as needed. Active zolpidem (AMBIEN) 5 MG tablet Take 2.5 mg by mouth nightly at bedtime as needed. Active HYDROcodone-acetaminop hen (VICODIN) 5-500 MG per tablet Take 1 Tab by mouth every six hours as needed. Active Active Problems Problem Noted Date Diagnosed Date Depression Resolved Problems Problem Noted Date Diagnosed Date Resolved Date Overdose of benzodiazepine 10/11/2011 1 12/11/2010 Social History Tobacco Use Types Packs/Day Years Used Date Smoking Tobacco: Never Alcohol Use Standard Drinks/Week Comments Yes 5.8 (1 standard drink = 0.6 oz p ure alcohol) Domestic Violence Screen Answer Date Re corded Physical Abuse Risk Unknown 01/21/2024 Verbal Abuse Risk Unknown 01/21/2024 Sex and Gender Information Value Date Recorded Sex Assigned at Not on file Gender Identity Not on file Sexual Orientation Not on file Last Filed Vital Signs Vital Sign Reading Time Taken Comments Blood Pressure 119/69 10/11/2011 5:43 PM MST Pulse 69 10/11/2011 5:43 PM MST Temperature 36.5 ??C (97.7 ??F) 10/11/2011 5:43 PM MS T Respiratory Rate 18 10/11/2011 5:43 PM MST Oxygen Saturation 98% 10/11/2011 5:43 PM MST Inhaled Oxygen Concentration - - Weight 69.2 kg (152 lb 8.9 oz) 10/11/2011 8:00 A M MST Height 162.6 cm (5' 4) 10/10/2011 9:53 PM MST Body Mass Index 26.19 10/10/2011 9:53 PM MST Plan of Treatment Not on file Advance Directives For more information, please contact: [phone] * Full Code (Latest Code Status on File) Date Activated Date Inactivated Comments 10/11/2011 7:44 AM 10/11/2011 10:08 PM Care Teams Information And Data Architect Analyst Relationship Specialty Start Date End Date Pcp Pcp - MD Kitty PCP - General 10/10/11
--- OUTSIDE RECORDS SUMMARY | 2024-03-04 08:52 | XMS_ITS | Clinical Summary ---
Author Name Unknown Organization [employer] [facility] r Address [address] [place] [address] Care Team Providers Care Pvc Monitor Name Role Phone Pcp, Pcp - No [...] Date Overdose of benzodiazepine 10/11/2011 1 12/11/2010 Family History Medical History Relation Comments Depression Father Relation Status Comments Father Mother Social History Tobacco Use Types Packs/Day [...] PM MST Pulse 69 10/11/2011 5:43 PM [facility] Temperature 36.5 ??C (97.7 ??F) 10/11/2011 5:43 [...] Advance Directives For more information, please contact: [phone] * Full Code (Latest Code Status on File) Date Activated Date Inactivated Comments 10/11/2011 7:44 AM 10/11/2011 10:08 PM Care Teams Pvc Monitor Relationship Specialty Start Date End Date Pcp, Pcp - MD Kitty PCP - General 10/10/11
--- OUTSIDE RECORDS SUMMARY | 2024-03-04 08:52 | XMS_ITS | Clinical Summary ---
Author Name Unknown Organization [facility] Address [place], [place] [address] Care Team Providers Care Kindergartner Name Role Phone Autumn Escobedo AuD Unavailable [phone] None Primary Care Provider Unavailabl e Allergies No known active allergies Medications Medication Sig Dispensed Refills Start Date End Date Status ZOLOFT ORAL 150 mg 0 Active AMBIEN ORAL 3 mg at bedtime 0 Active MEDICATION ORDER COMPOSER apap/codeine 30mg daily 0 Active TRAZODONE 150 MG TAB daily 0 Acti ve CENTRUM SILVER ORAL daily 0 Activ e CALCARB 600 WITH VITAMIN D ORAL None Entered 0 Active DIAZEPAM 5 MG TAB 5 mg Oral EVERY 6 HOURS NEEDED 30 0 12/01/2007 Active escitalopram oxalate (LEXAPRO) 10 mg tablet 03/10/2023 Active traZODone (DESYREL) 100 mg tablet 11/28/2022 Active ALPRAZolam (XANAX) 0.5 mg tablet Take 0.5 mg by mouth once daily if needed. 10/27/2021 Active alendronate (FOSAMAX) 70 mg tablet 02/02/2023 Active calcium carbonate (CALTRATE) 600 mg calcium (1,500 mg) tablet Take by mouth. 09/13/2022 Active Cholecalciferol, Vitamin D3, 400 unit capsule Take 1,000 units by mouth. 06/13/2022 Active omega 1-zvt-owo-fish oil (Fish OiL) 100-160-1,000 mg cap by Not Applicable route. Active omega-3 acid ethyl esters (LOVAZA;OMACOR) 1 gram capsule Take 1 Capsule by mouth. 06/13/2022 Active turmeric-g.tea-ptero stil-brocc 213-599-01-30 mg cap Take by mouth. 06/13/2022 Active hydrocortisone 2.5% cream 09/01/2022 Active valACYclovir (VALTREX) 1 gram tablet one time if needed. 12/09/2022 Activ e triamcinolone (ARISTOCORT; KENALOG) 0.1 % cream APPLY TO ABDOMEN TWICE DAILY FOR UP TO 2 WEEKS FOR ITCHY FLARES 02/27/2023 Active Active Problems Problem Noted Date Diagnosed Date Sensorineural hearing loss, bilateral 08/14/2012 Disorder of bone and cartilage, unspecified 06/2007 Immunizations Name Administration Dates Next Due Hepatitis A (Adult) 07/18/2007,06/21/2006 Inactivated Polio Vaccine 06/21/2006 Meningococcal Vaccine 09/04/1998 Tdap 06/21/2006 Family History Medical History Relation Name Comments Psychiatric illness Father Heart Disease Mother Heart attack a ge 72 Relation Name Status Comments Father (Age 60's) committe d suicide Mother Social History Tobacco Use Types Packs/Day Years Used Date Smoking Tobacco: Never Passive Smoke Exposure: Never Tobacco Cessation:Counseling Given: Not Answered Alcohol Use Standard Drinks/Week Comments Yes 1 (1 standard drink = 0.6 oz pur e alcohol) Social Connections Answer Date Recorded Frequency of Communication with Friends and Fami ly Not on file 03/20/2023 Sex and Gender Information Value Date Recorded Sex Assigned at Not on file Gender Identity Not on file Sexual Orientation Not on file Obstetrics History Last Filed Vital Signs Vital Sign Reading Time Taken Comments Blood Pressure 102/64 08/24/2016 1:52 PM CDT Pulse 60 08/24/2016 1:52 PM CDT Temperature 36.4 ??C (97.5 ??F) 04/09/2014 2:29 PM CD T Respiratory Rate 14 08/24/2016 1:52 PM CDT Oxygen Saturation 99% 04/21/2014 9:52 AM CDT Inhaled Oxygen Concentration - - Weight 46.4 kg (102 lb 6.4 oz) 08/24/2016 1:52 P M CDT Height 157.5 cm (5' 2.01) 04/21/2014 9:52 AM CD T Body Mass Index 18.72 04/21/2014 9:52 AM CDT Plan of Treatment Upcoming Encounters Date Type Department Care Team (Late st Contact Info) Description 03/26/2024 9:00 AM CDT Office Visit [facility] [address] [place] [address] Marc Feliz, AuD [address] [facility] [address] 03/26/2024 10:00 AM CDT Office Visit [facility] [address] [place] [address] Marc Feliz, AuD [address] [place] [address] Health Maintenance Due Date Last Done Comments Depression screening for age 12+ 1957 BMI (ht and wt on same day) for age 18+ 1963 Hepatitis C screening for age 18-79 1963 Zoster (shingles) series for age 50+ (1 of 2) 1995 DEXA/DXA scan for age 65+ 2010 Medicare Wellness for age 65+ 2010 Pneumococcal series for age 65+ (1 of 1 - PCV) 2010 Tetanus booster 06/21/2016 06/21/2006 COVID-19 vaccine series (3 - 2022- season) 2023 03/26/2023, 07/31/2022 Influenza for age 65+ 07/21/2024 Tdap Completed 06/21/2006 Advance Directives * Full Code (Latest Code Status on File) Date Activated Date Inactivated Comments 11/30/2007 12:12 PM 12/01/2007 12:17 PM Care Teams Kindergartner Relationship Specialty Start Date End Date None . PCP - General 03/20/23 Autumn Escobedo AuD Audiology 08/15/12
--- OUTSIDE RECORDS SUMMARY | 2024-03-04 08:52 | XMS_ITS | Continuity of Care Document ---
Author Name Unknown Organization [facility] Address [address] [place] [address] Phone Care Team Providers Care Plant Specialist Name Role Phone Federico Holley Unavailable Unavailable [...] - Active Procedures Procedure Date Office/outpatient Visit, [facility] Advance Directives Directive Yes / No Effective Date File Name No Information Encounters Encounter Description Practice Location Reason(s) For Visit Diagnoses Date Provider Providers Copied on Encounter [facility], [address], [place], [place], [id number], [place] tel:[phone] ROBERTA Azar Primary generalized (osteo)arthritisPo lyneuropathy, unspecified 9 Wendy Caballero. [address], [address], [id number], [place]. tel:[phone] Office/outpa tient Visit, [facility], [address], [place], [place], [id number], [place] tel:[phone] ROBERTA Azar Neuropathy (chief complaint) NeuropathyPrimary osteoarthritis involving multiple joints 9 Wendy Caballero. [address], [place], [place], [id number], [place]. tel:[phone] Referring Provider: Elva Levi , [address], [place], [address] . tel:[phone] Family History Family Member Type Diagnosis Age At Onset Father Problem (finding) gout Payers Payer name Insurance type Covered alliance party ID Authorpinky white(s) Medicare [id number] [place] PPO [id number] Social History Type Description Quantity Date Captured [...]
[2024-03-04] MEDS: ACETAMINOPHEN 500 MG TABLET 1000 MG PO ×2 (09:08→20:48)
[2024-03-04] MEDS: OXYCODONE (CR) 10 MG TAB.ER.12H PO (09:08)
[2024-03-04] MEDS: LACTATED RINGERS 1000 ML 1,000 ML 100 ML IV ×2 (09:10→12:02)
--- NOTE | 2024-03-04 09:56 | XR_ITS ---
Patient: MICHELE SOMERS Facility:?[facility] Patient ID:?[id number] Site Patient ID:?[id number]. Site :?1945 Study:?XRay-Hip Left TOTAL HIP AA-03/04/2024 2:29:07 PM Ordering Physician:JOSELITO Final Report: INDICATION: Left total hip. TECHNIQUE: Single spot image of the left hip. 33.1 seconds fluoro time. FINDINGS: Left ANOOP in place. Dictated by Jorge Ahmadi MD @ 03/05/2024 8:37:34 AM Signed by:?Jorge Ahmadi MD @03/05/2024 8:37:34 AM (Electronic Signature)
--- NOTE | 2024-03-04 11:00 | XR_ITS ---
Patient: MICHELE SOMERS Facility:?[facility] Patient ID:?[id number] Site Patient ID:?[id number]. Site :?1945 Study:?XRay-Hip Left TOTAL HIP AA-03/04/2024 2:29:07 PM Ordering Physician:JOSELITO Final Report: INDICATION: Left total hip. TECHNIQUE: Single spot image of the left hip. 33.1 seconds fluoro time. FINDINGS: Left ANOOP in place. Dictated by Jorge Ahmadi MD @ 03/05/2024 8:37:34 AM Signed by:?Jorge Ahmadi MD @03/05/2024 8:37:34 AM (Electronic Signature)
[2024-03-04] MEDS: fentaNYL 100 MCG/2 ML inj IVP (11:05)
[2024-03-04] MEDS: MIDAZOLAM HCL 1 MG/ML inj IVP (11:05)
--- NOTE | 2024-03-04 11:36 | SUR.PREOP ---
TIME?OUT:?1100 PT/RN/MDA?VERIFICATION?OF?SURGICAL?SITE,?PROCEDURE,?AND?CONSENT OBTAINED?PRIOR?TO?INVASIVE?PROCEDURE.
--- NOTE | 2024-03-04 11:49 | P.NB_ITS ---
Nerve Block Nerve Block Time Seen by Provider: 11:14 Date Seen: 03/04/24 Type of block requested by surgeon for post-operative analgesia: MU/LFCN Side: left Time out performed: Yes Verification of patient name: Yes Verification of date of : Yes Site marking: site marked Name of person performing procedure: Mikey Continuous monitoring Was continuous monitoring of O2 sat, B/P, tribal council member, recorded every 15 minutes?: Yes Procedure Checklist: sterile prep, needles and gloves Ultrasound guided. Images saved: Yes Medications given in 5ml increments after negative aspiration: Ropivicaine %: 0.5 mL: 30 Needle gauge: 20 Decadron (mg): 10 Precedex (mcg): 25 Patient tolerated procedure well: Yes Additional comments: Needle noted below psoas tendon needle noted adjacent to LFCN Block Charges Block Charge (with Pro Fee): Other Periph Nerve Block Use of Ultrasound Machine for Block: Yes- US Guidance/pain block
[2024-03-04] MEDS: CEFAZOLIN 2 GM in 0.9 % SODIUM CHLORIDE Mini-bag 100 ML IVPB (11:58)
[2024-03-04] MEDS: TRANEXAMIC ACID 100 MG/ML INJ 1000 MG IV (11:58)
--- NOTE | 2024-03-04 13:13 | P.ORPRC_ITS ---
Procedure Note Date of procedure: 03/04/24 Procedure: PREOPERATIVE DIAGNOSIS: 1. Left hip osteoarthritis, severe, primary POSTOPERATIVE DIAGNOSIS: 1. Left hip osteoarthritis, severe, primary PROCEDURE: 1. Left total hip arthroplasty-anterior approach 2. [id number] - intraoperative fluoroscopy up to 1 hour. SURGEON: Ion Campos MD. BREAKFAST BAR ATTENDANT: Richard Briggs PA-C; FLYNN Dunaway - Of note, a skilled library technical assistant was critical for this case to aid in patient positioning, tissue retraction, limb manipulation/positioning, dislocation/relocation, patient safety, and closure. ANESTHESIA: Spinal anesthetic EBL: 400ml IMPLANTS: DePuy J&J uncemented total hip [place] cup size 48, hole eliminator, +0 neutral liner Actis stem, standard offset, size 6 +5 mm ceramic 32mm head. COMPLICATIONS: None evident INDICATIONS: The patient is a pleasant 78-year-old female who has experienced severe left hip pain and difficulty bearing weight. Workup included x-rays which revealed severe osteoarthrosis in the hip. Given the deformity, the d ysfunction, and the pain, as well as the failure of nonoperative management, recommendation was made for surgery. FINDINGS: Full-thickness cartilage wear around the femoral head/neck junction and acetabulum. Moderate effusion upon entering the joint. Osteophytes around the femoral head/neck junction and perimeter of the acetabulum as well. DESCRIPTION OF PROCEDURE: Following a thorough discussion of risks, benefits, and alternatives consent was obtained and the left hip was marked. The patient was brought to the operating room and placed supine on the operating table. Induction of anesthesia was undertaken. 1 g IV Ancef and 1 g tranexamic acid was administered within 1 hr of incision preoperatively. Proper time-out was performed identifying proper patient, site, procedure. The operative extremity was prepped and draped in the appropriate sterile fashion using ChloraPrep after the patient was positioned on the [place] table with head in neutral alignment and all bony prominences well padded. C-arm fluoroscopic imaging was utilized to confirm proper pelvis rotation and position, and to get true AP films of both the contralateral left, and the affected left hip. This is for comparison. A longitudinal incision was made starting approximately 1 cm distal to the ASIS, and 3-4 cm lateral. The incision was extended distally aiming toward the lateral border the patella. Sharp incision through skin and bovie cautery through the subcutaneous tissue allowed identification of the TFL fascia. This was sharply divided, and the fascia bluntly released from the muscle fibers as we dissected medial. Upon coming to the medial border, we were able to retract the TFL laterally, and penetrated the deeper fascia and identify the crossing circumflex vessels. These were ligated/cauterized. The rectus was elevated from the capsule, and retractors placed laterally and medially along the femoral neck to help with visualization of the capsule. We then performed an inverted T capsulotomy. The capsule was tagged for later repair. Retractors were placed inside the capsule. The femoral neck was visualized after releasing medially down to the lesser trochanter, along the saddle laterally, and up onto the acetabulum. The femoral neck cut was made in line with our preoperative templating. The head was removed in a single piece, and sized. We turned our attention to acetabular preparation. Initially, the labrum was resected from around the perimeter, the pulvinar was excised, allowing us to visualize the false wall. We started the reaming with a 43 mm reamer. This was medialized down to the true wall. We then enlarged our reamers sequentially up to one size less than the selected cup size. We trialed at the same size and found it to have an excellent fit. The selected cup was then opened, inserted, and impacted in line with the goal of 40-45? of abduction, and 20-25? of anteversion. This was confirmed on C-arm fluoroscopic imaging to be in the appropriate/goal position. Once the cup was placed we placed a hole eliminator and a liner consistent with preop planning. Attention was turned to the femoral preparation. The limb was extended, externally rotated, and adducted. The posteromedial capsule was released, as retractors were placed allowing excellent access to the proximal femur. Initially a drip box tender was followed by canal finder followed by various broaches. We broached sequentially up to size noted above, found it to have excellent rotational control, and trialing various heads and necks, revealed that appropriate neck offset, and the above noted head size provided the greatest stability, and adventist of length, and offset. C-arm fluoroscopic imaging confirmed position of the stem, as well as leg lengths, which were compared with the pre procedure all fluoroscopic images. Trial implants were removed, the real femoral stem inserted, as was the ceramic head. After reducing, the leg was placed through range of motion and stability was confirmed anterior, posterior, and lateral. A 3 min Betadine soak was then performed, and thorough irrigation with normal saline followed. Closure of the capsule was performed with #1 PDS. Bleeding was confirmed to be controlled at this stage, and the TFL fascia was closed with #0 strata fix. Subcutaneous, and subcuticular closure was performed with 2-0 Vicryl and 4-0 Monocryl, respe ctively. Dressings were applied, and the patient was awoken from anesthesia and transferred the PACU in stable condition. A skilled library technical assistant was critical for this case to aid in patient positioning, tissue retraction, proximal femur exposure, limb manipulation/positioning, dislocation/relocation, patient safety, and closure. PLAN: 1. Weight bear as tolerated operative extremity. 2. 23 hr perioperative antibiotics. 3. Ice. 4. PT/OT consults for ambulation assistance/mobility education. 5. Social work consult for discharge planning. 6. DVT prophylaxis with at SCDs and Xarelto x5 days followed by aspirin for a total of 1 month.
--- NOTE | 2024-03-04 13:13 | W.PM.H&PU ---
History & Physical Update History & Physical Update H&P Reviewed and patient assessed: No changes noted
--- NOTE | 2024-03-04 14:14 | W.ANESCHARGE ---
Anesthesia Charges Start Date/Time Anesthesia Start Date: 03/04/24 Anesthesia Start Time: 11:28 Stop Date/Time Anesthesia Stop Date: 03/04/24 Anesthesia Stop Time: 14:07 Summary Extremes of Age - Over 70 or under 1: [employer]
--- NOTE | 2024-03-04 14:22 | W.ANESCHARGE ---
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
[2024-03-04] MEDS: LACTATED RINGERS 1000 ML 1,000 ML 30 ML IV (14:30)
--- NOTE | 2024-03-04 15:30 | P.IMCN_ITS ---
Date of Consult Patient: [facility] Patient Consult date: 03/04/24 Primary Care Provider: Ed Walsh MD Consult Narrative Reason for consult: Medical management of comorbidities Narrative: Kylie Tabor is a 78 year old female who presented to the hospital today for an elective LTHA with Dr. Campos. There were no surgical or anesthetic complications noted during procedure. This was her 2nd joint replacement. Patient's H&P reviewed, PCP is Dr. Walsh. No concerns noted. Past medical history significant for: Osteoporosis, hearing loss, insomnia, osteoarthritis. History of blood clots: No Postoperative plan: Home with . Patient and have no concerns for hospitalist team this afternoon. Review of Systems Status of ROS: Reports: 10 or more systems reviewed and unremarkable except as noted in History and below [facility] Medical History (Updated 02/26/24 @ 13:27 by Ed Walsh MD) Allergic rhinitis ?J30.9 - Allergic rhinitis, unspecified (ICD-10) Vitamin D deficiency ?E55.9 - Vitamin D deficiency, unspecified (ICD-10) Cognitive impairment ?R41.89 - Other symptoms and signs involving cognitive functions and awareness (ICD-10) Degenerative scoliosis ?M41.80 - Other forms of scoliosis, site unspecified (ICD-10) Osteoarthritis of left hip ?M16.12 - Unilateral primary osteoarthritis, left hip (ICD-10) Sensorineural hearing loss (SNHL) of both ears ?H90.3 - Sensorineural hearing loss, bilateral (ICD-10) 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 ?L03.90 - Cellulitis, unspecified (ICD-10) ?A28.0 - Pasteurellosis (ICD-10) ?W55.01XA - Bitten by cat, initial encounter (ICD-10) Osteoporosis (2012) ?M81.0 - Age-related osteoporosis without current pathological fracture (ICD- 10) Lyme disease (08/10/13) ?A69.20 - Lyme disease, unspecified (ICD-10) Insomnia ?G47.00 - Insomnia, unspecified (ICD-10) Depression ?F32.A - Depression, unspecified (ICD-10) Chronic back pain (04/22/13) ?M54.9 - Dorsalgia, unspecified (ICD-10) ?G89.29 - Other chronic pain (ICD-10) Anxiety ?F41.9 - Anxiety disorder, unspecified (ICD-10) Surgical History (Updated 03/04/24 @ 15:33 by Lucina Varghese MD) H/O excision of ganglion cyst (04/03/97) ?Z98.890 - Other specified postprocedural states (ICD-10) History of laminectomy ?Z98.890 - Other specified postprocedural states (ICD-10) 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) ?Z96.641 - Presence of right artificial hip joint (ICD-10) Status post dilation and curettage (1989) ?Z98.890 - Other specified postprocedural states (ICD-10) History of microdiscectomy (2007) ?Z98.890 - Other specified postprocedural states (ICD-10) History of hysterectomy (1989) ?Z90.710 - Acquired absence of both cervix and uterus (ICD-10) Family History Father Depression Social History (Reviewed 02/20/24 @ 09:36 by Lianet Morel ~ [facility], [employer]) Narrative: Exercises regularly- 3-4/ week, walking, 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 , 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, 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 Non-smoker Social drinker What is your current living situation?: I presently have a place to live In the past 12 months, utilities in danger of being shut off: no In past 12 months, lack of transportation kept you from medical appts, meetings, work, or getting things needed for daily living: no In the past 12 mos, have been you worried that your food would run out before you had money to buy more?: never true In the past 12 mos, the food you bought just didn't last and you didn't have money to buy more?: never true Smoking Status: Never smoker Do you use any of these nicotine containing products: None Second hand tobacco smoke exposure: No How often do you have a drink containing alcohol: 4 or more times a week AUDIT-C Alcohol total score: 4 Non-prescribed substance use: denies use How often does anyone, including family, friends and others, physically hurt you : never How often does anyone, including family, friends and others, insult or talk down to you: never How often does anyone, including family, friends and others, threaten you with harm: never How often does anyone, including family, friends and others, scream or curse at you: never Little interest or pleasure in doing things: not at all Feeling down, depressed, or hopeless: several days Meds Home Medications and Allergies Home Medications Medication Instructions Recorded Confirmed Type cetirizine 10 mg tablet (Zyrtec) 10 mg PO DAILY 03/04/24 03/04/24 History fluorouracil 5 % topical cream 1 applic topical DAILY 03/04/24 03/04/24 History fluticasone propionate 50 2 spray intranasal DAILY 03/04/24 03/04/24 History mcg/actuation nasal spray,suspension (Flonase Allergy Relief) omega-3 acid ethyl esters 1 gram 1 cap PO DAILY 03/04/24 03/04/24 History capsule sertraline 100 mg tablet 150 mg PO HS 03/04/24 03/04/24 History Allergies Allergy/AdvReac Type Severity Reaction Status Date / Time pollen extracts Allergy Intermediate Verified 03/04/24 09:22 Exam Narrative: Exam Narrative: GEN: Alert and oriented, hard of hearing but answering questions appropriately. Nontoxic HEENT: EOMIs bilaterally, no scleral icterus CV: RRR, No concerning murmurs R: LCTA bilaterally without concerning wheezing Ext: Bilateral Ayden hose Skin: No concerning skin lesions or rashes on exposed skin Neuro: No focal deficits on limited exam Psych: Appropriate Const: Vital Signs, click to edit/add: Vital Signs - 24 hr 03/04/24 09:30 03/04/24 14:05 03/04/24 14:10 Temperature 98.0 F 97.3 F L Pulse Rate 98 54 L 54 L Respiratory Rate 16 12 14 Blood Pressure 124/85 94/51 L 84/40 L Pulse Oximetry 97 99 96 Oxygen Delivery Me thod Room Air Room Air 03/04/24 14:15 03/04/24 14:20 03/04/24 14:25 Temperature Pulse Rate 51 L 52 L 56 L Respiratory Rate 16 14 16 Blood Pressure 85/48 L 94/51 L 101/55 L Pulse Oximetry 97 99 100 Oxygen Delivery Me thod 03/04/24 14:30 03/04/24 14:35 Temperature 97.6 F Pulse Rate 53 L 54 L Respiratory Rate 16 14 Blood Pressure 82/53 L 99/56 L Pulse Oximetry 98 99 Oxygen Delivery Me thod Assessment and Plan Assessment and plan (1) S/P hip replacement: Problem comment: - LEFT and, 03/04/24, Beth Status: Acute Plan - pain management and prophylaxis per orthopedic surgery team - continue home medications for comorbidities - anticipate routine postoperative course - updated at bedside, questions answered
[2024-03-04] MEDS: HYDROmorphone 0.5 mg/0.5 ml inj IVP (16:31)
[2024-03-04] MEDS: diazePAM 5 MG TABLET 2.5 MG PO (17:26)
[2024-03-04 17:42] LABS: Troponin I* < 0.01 ng/mL (0.01-0.04)
--- NOTE | 2024-03-04 18:04 | PM.EN ---
Chart Event Note Chart Event Note: Patient had acute onset of low back pain late this afternoon while laying in bed. She was given IV Dilaudid with minimal relief. BP was 113/61, HR 60, 99% on RA. Urgent EKG and troponin obtained, both negative/normal. Position change was also not helpful, but she was able to move to edge of bed. Negative straight leg raise. Given 2.5mg of Valium with significant relief. Ortho and Anesthesia updated. updated at bedside, questions answered.
--- NOTE | 2024-03-04 19:35 | PC.NURSE ---
End of shift - Pt arrived from PACU at approximately 1445. Pt appeared to be confused related to anesthesia recovery and was observed to demonstrate emotional lability while talking to RN and family at bedside. Pt appeared distressed that spouse wasn't talking to her. RN and spouse reassured pt that they could talk freely and would have a conversation after the RN was finished giving instructions. Pt denied pain, SOB, nausea, vomiting. Pedal pulse present, dressing CDI, ice pack in place. During shift, pt pain report changed from experiencing no pain to starting to feel pain. RN pulled medication per MAR and found pt to be crying, claiming to be experiencing extreme pain in her low back that she can't explain and cannot tolerate any longer. RN attempted to have the pt explain in more detail the location and description of the pain. Pt reiterated that she was unable to give RN any detail regarding the sudden change in pain, the location of the pain, or factors that made the pain better/worse. RN administered pain medication per MAR and suggested repositioning to provide relief. Pt reported feeling no relief from reposition. RN contacted charge nurse and the charge nurse assisted RN in offering interventions for pain relief, including repositioning and visually inspecting the pt's low back. Low back area was unremarkable with no visible deformity, discoloration, or abnormality. MD contacted, Ortho team contacted, Anesthesia contacted and updated. MD, provided orders for EKG, blood draw, medication, and visually inspected low back area. RN carried out MD orders, pt behavior indicated improvement, however pt continued to report extreme pain in low back. Medication provided per MAR, pt reported feeling a little better and behavior indicated further improvement. At end of shift, pt was up with walker/gait belt and 1 assist for transfer. Pt reported feeling lightheaded and stated she couldn't make it back to the bed. RN provided chair for pt to rest, pt repeated statement that she couldn't make it to the bed. RN reassured pt that she would receive assistance back to bed. Charge nurse notified, pt able to ambulate with walker/gait belt, 2 assist back to bed. Appears to be resting comfortably at end of shift, reports no pain at this time.
[2024-03-04] MEDS: CEFAZOLIN 1 GM in 0.9 % SODIUM CHLORIDE Mini-bag 100 ML IVPB (20:06)
[2024-03-04] MEDS: SENNOSIDES 1 TAB TABLET 2 TAB PO (20:46)
[2024-03-04] MEDS: GABAPENTIN 300 MG CAPSULE PO (20:47)
[2024-03-04] MEDS: OXYCODONE 5 MG TABLET PO (20:47)
[2024-03-04] MEDS: SERTRALINE 100 MG TABLET 150 MG PO (20:48)
[2024-03-04] MEDS: TRAZODONE HCL 50 MG TABLET 100 MG PO (21:48)
[2024-03-05 03:00] VITALS: BP 101/59; PULSE 76; RESP 16; TEMP 37.8; O2SAT 96
[2024-03-05] MEDS: CEFAZOLIN 1 GM in 0.9 % SODIUM CHLORIDE Mini-bag 100 ML IVPB (03:42)
[2024-03-05] MEDS: OXYCODONE 5 MG TABLET PO ×3 (03:42→08:49)
[2024-03-05] MEDS: ACETAMINOPHEN 500 MG TABLET 1000 MG PO (03:42)
[2024-03-05 06:01] VITALS: TEMP 36.9
--- NOTE | 2024-03-05 06:08 | PC.NURSE ---
End of shift [id number]: Pt is A&O x3 (disoriented to time), afebrile and VSS with exception to ongoing soft BP?s. Hx of dementia shows as pt has a difficult time finding the correct words & expressing her needs. She was confused as to how to use her cell phone and needed reorientation on using her call light and appropriate walker use. She is Ax1 with gait belt & 2ww. Reports ongoing left hip pain but unable to rate it on the 1-10 scale. After Aqua-K pad was provided for back pain and PRN oxycodone given consistently, pt reports pain ?is not that bad?. PIV in left FA is C/D/I. Pt refused to have active ice on overnight d/t ?freezing?. Left hip dressing is C/D/I and plexi pulses are in place. Pt denies any nausea or SOB overnight. PRN trazadone given @ HS. T-max 100.1 @ 0300 VS- noted pt had Aqua-K pad on back at the warmest temp. After giving Tylenol & turning the Aqua-K pad temp down, recheck was 98.4. PRN oxycodone given last @ 0340. ?
[2024-03-05 06:19] LABS: Basophils Absolute Auto 0.01 K/uL (0.00-0.30); Basophils Percent Auto 0.1 % (0.0-3.0); Hematocrit 24.6 % (33.0-51.0); Hemoglobin* 8.2 gm/dL (12.0-16.0); Immature Granulocytes Abs Auto 0.03 K/uL (0.00-0.30); Immature Granulocytes Pct Auto 0.3 %; Lymphocytes Percent Auto 17.3 % (20-44); Mean Corpuscular HGB Conc 33 gm/dL (32-36); Mean Corpuscular Hemoglobin 31 pg (26-34); Mean Corpuscular Volume 93 fL (80-100); Monocytes Percent Auto 9.8 % (0.0-11.0); Neutrophils Percent Auto 72.5 % (42.0-72.0); Platelet Count* 211 K/uL (140-440); RDW Coefficient of Variation % 13.1 % (11.5-15.5); Red Blood Count 2.64 m/uL (4.00-5.20); White Blood Count* 9.75 K/uL (4.50-11.00)
[2024-03-05 06:31] LABS: Slide Review Reflex No
[2024-03-05 06:34] LABS: Sodium* 136 mmol/L (135-149)
[2024-03-05 06:37] LABS: Blood Urea Nitrogen* 21 mg/dL (7-30); Creatinine* 0.6 mg/dL (0.5-1.5); Est. Creatinine Clearance* 34.99; Estimated Glomerular Filt Rate 92 ml/min
[2024-03-05 07:57] VITALS: BP 96/54; PULSE 76; RESP 16; TEMP 37.4; O2SAT 94
[2024-03-05] MEDS: RIVAROXABAN 10 MG TABLET PO (08:49)
[2024-03-05] MEDS: GABAPENTIN 300 MG CAPSULE PO (08:49)
[2024-03-05] MEDS: CETIRIZINE HCL 10 MG TABLET PO (08:50)
[2024-03-05] MEDS: SENNOSIDES 1 TAB TABLET 2 TAB PO (08:50)
--- NOTE | 2024-03-05 10:11 | PM.ORPN ---
Subjective Subjective Date Seen: 03/05/24 Principal diagnosis: Status postop day 1, left total hip arthroplasty - anterior approach Interval history: Patient reports doing well. Acute events over night included increased sudden excruciating pain throughout her lower back. Per staff, patient was diaphoretic, and due to the amount of acne she was presenting, cardiac workup was initiated to rule out cardiac event. Cardiac pathology was ruled out via these labs and EKG. Now, pain managed with scheduled and PRN medications, ice. DVT prophylaxis: Rivaroxaban, SCDs, walking. Complaining of some mild lightheadedness when walking. Denies fevers, chills, aches, N/V, CP, SOB/JEAN. She is eager to work with physical therapy. Ortho Exam Narrative Exam Narrative: -Patient appears comfortable in recliner; no apparent acute distress -Alert and oriented times 3 -Operative hip swollen; soft tissues supple; no obvious erythema. No significant ecchymosis. Warmth appropriate -Surgical dressing clean, dry, intact; no obvious drainage, no erythematous streaking peripheral to the bandage -Bilateral calves soft and supple; no significant swelling, edema, tenderness, erythema, discoloration, warmth, or palpable cords -2+ DP/PT pulses, intact dermatomes and myotomes distally (5/5 strength). No numbness about the lateral femoral cutaneous nerve distribution. Const Vital Signs, click to edit/add: Vital Signs - 24 hr 03/04/24 14:05 03/04/24 14:10 03/04/24 14:15 Temperature 97.3 F L Pulse Rate 54 L 54 L 51 L Pulse Rate [Right Pulse Oximeter] Respiratory Rate 12 14 16 Blood Pressure 94/51 L 84/40 L 85/48 L Blood Pressure [Right Arm] Pulse Oximetry 99 96 97 Oxygen Delivery Method Room Air 03/04/24 14:20 03/04/24 14:25 03/04/24 14:30 Temperature Pulse Rate 52 L 56 L 53 L Pulse Rate [Right Pulse Oximeter] Respiratory Rate 14 16 16 Blood Pressure 94/51 L 101/55 L 82/53 L Blood Pressure [Right Arm] Pulse Oximetry 99 100 98 Oxygen Delivery Method 03/04/24 14:35 03/04/24 14:45 03/04/24 15:00 Temperature 97.6 F 96.5 F L 96.8 F L Pulse Rate 54 L 57 L 53 L Pulse Rate [Right Pulse Oximeter] Respiratory Rate 14 16 16 Blood Pressure 99/56 L 95/55 L 100/60 Blood Pressure [Right Arm] Pulse Oximetry 99 100 95 Oxygen Delivery Method Room Air 03/04/24 15:15 03/04/24 15:30 03/04/24 15:45 Temperature 97.0 F L 96.8 F L 97.1 F L Pulse Rate 60 58 L 58 L Pulse Rate [Right Pulse Oximeter] Respiratory Rate 16 16 16 Blood Pressure 109/54 L 113/61 Blood Pressure [Right Arm] Pulse Oximetry 98 100 100 Oxygen Delivery Method Room Air Room Air Room Air 03/04/24 16:15 03/04/24 18:17 03/04/24 18:45 Temperature 96.5 F L 97.1 F L Pulse Rate 60 57 L Pulse Rate [Right Pulse Oximeter] Respiratory Rate 16 16 16 Blood Pressure 95/55 L 107/56 L Blood Pressure [Right Arm] Pulse Oximetry 99 100 Oxygen Delivery Method Room Air 03/04/24 19:45 03/04/24 20:45 03/04/24 23:00 Temperature 98.2 F 98.6 F Pulse Rate 80 74 Pulse Rate [Right Pulse Oximeter] 74 Respiratory Rate 18 18 18 Blood Pressure 110/49 L 106/61 Blood Pressure [Right Arm] Pulse Oximetry 98 96 Oxygen Delivery Method Room Air Room Air 03/04/24 23:00 03/05/24 03:00 03/05/24 06:01 Temperature 98.5 F 100.1 F H 98.4 F Pulse Rate Pulse Rate [Right Pulse Oximeter] 74 76 Respiratory Rate 18 16 Blood Pressure Blood Pressure [Right Arm] 93/39 L 101/59 L Pulse Oximetry 95 96 Oxygen Delivery Method Room Air Room Air 03/05/24 07:57 Temperature 99.3 F Pulse Rate Pulse Rate [Right Pulse Oximeter] 76 Respiratory Rate 16 Blood Pressure Blood Pressure [Right Arm] 96/54 L Pulse Oximetry 94 Oxygen Delivery Method Room Air Assessment and Plan Assessment and plan (1) S/P hip replacement: Problem details: - LEFT hip, 03/04/24, Beth Status: Acute (2) Postoperative anemia due to acute blood loss: Problem details: Left ANOOP 03/04/2024 Status: Acute Plan - Complete 23 hour perioperative antibiotics. - PT/OT consult for education and assistance. - Social work consult for discharge planning - Prescribed analgesics as needed - DVT prophylaxis: Rivaroxaban, and SCDs. Will transition to 81 mg aspirin by mouth twice daily after 5 days rivaroxaban - Anticipation is for discharge to home with spouse 03/05/2024 if the patient remains medically stable, pain is controlled, and they are safe with mobilization. - Spoke to patient how I am very glad that a cardiac workup was initiated to rule out cardiac/vascular pathology. She also seemed pleased with the care she received during this acute, concerning event.
--- NOTE | 2024-03-05 10:55 | PM.IMPN1 ---
Progress Note: A&P Assessment and plan (1) S/P hip replacement: Problem details: - LEFT hip, 03/04/24, Beth Status: Acute (2) Postoperative anemia due to acute blood loss: Problem details: Left ANOOP 03/04/2024, EBL reported in op note as 400 mL. She is on rivaroxaban. She ambulated well and I do not see any evidence of left hip edema or hematoma. - Recheck Hgb now, and if stable, check again as outpatient 03/07. Status: Acute (3) Cognitive impairment: Status: Chronic Subjective Time Seen by Provider: 08:12 Date Seen: 03/05/24 Interval history: yKlie is feeling great this morning. She denies back pain. Pain in hip is minimal. She is excited to get walking with PT/OT today. Exam Narrative: Exam Narrative: General: No acute distress. Awake, alert, oriented. No pallor. No jaundice. Cardiovascular: Regular rate and rhythm. No murmurs, gallops, or rubs. Respiratory: Clear to auscultation bilaterally. No wheezes or crackles. Abdomen: Bowel sounds present. Extremities: Left hip bandage is clean, dry, and intact. No pedal edema. Const: Vital Signs, click to edit/add: Vital Signs - 24 hr 03/04/24 14:05 03/04/24 14:10 03/04/24 14:15 Temperature 97.3 F L Pulse Rate 54 L 54 L 51 L Pulse Rate [Right Pulse Oximeter] Respiratory Rate 12 14 16 Blood Pressure 94/51 L 84/40 L 85/48 L Blood Pressure [Ri ght Arm] Pulse Oximetry 99 96 97 Oxygen Delivery Me thod Room Air 03/04/24 14:20 03/04/24 14:25 03/04/24 14:30 Temperature Pulse Rate 52 L 56 L 53 L Pulse Rate [Right Pulse Oximeter] Respiratory Rate 14 16 16 Blood Pressure 94/51 L 101/55 L 82/53 L Blood Pressure [Ri ght Arm] Pulse Oximetry 99 100 98 Oxygen Delivery Me thod 03/04/24 14:35 03/04/24 14:45 03/04/24 15:00 Temperature 97.6 F 96.5 F L 96.8 F L Pulse Rate 54 L 57 L 53 L Pulse Rate [Right Pulse Oximeter] Respiratory Rate 14 16 16 Blood Pressure 99/56 L 95/55 L 100/60 Blood Pressure [Ri ght Arm] Pulse Oximetry 99 100 95 Oxygen Delivery Me thod Room Air 03/04/24 15:15 03/04/24 15:30 03/04/24 15:45 Temperature 97.0 F L 96.8 F L 97.1 F L Pulse Rate 60 58 L 58 L Pulse Rate [Right Pulse Oximeter] Respiratory Rate 16 16 16 Blood Pressure 109/54 L 113/61 Blood Pressure [Ri ght Arm] Pulse Oximetry 98 100 100 Oxygen Delivery Me od Room Air Room Air Room Air 03/04/24 16:15 03/04/24 18:17 03/04/24 18:45 Temperature 96.5 F L 97.1 F L Pulse Rate 60 57 L Pulse Rate [Right Pulse Oximeter] Respiratory Rate 16 16 16 Blood Pressure 95/55 L 107/56 L Blood Pressure [Ri ght Arm] Pulse Oximetry 99 [address] [facility] 03/04/24 19:45 03/04/24 20:45 03/04/24 23:00 Temperature 98.2 F 98.6 F Pulse Rate 80 74 Pulse Rate [Right Pulse Oximeter] 74 Respiratory Rate 18 18 18 Blood Pressure 110/49 L 106/61 Blood Pressure [Ri ght Arm] Pulse Oximetry 98 96 Oxygen Delivery Me od Room Air Room Air 03/04/24 23:00 03/05/24 03:00 03/05/24 06:01 Temperature 98.5 F 100.1 F H 98.4 F Pulse Rate Pulse Rate [Right Pulse Oximeter] 74 76 Respiratory Rate 18 16 Blood Pressure Blood Pressure [Ri ght Arm] 93/39 L 101/59 L Pulse Oximetry 95 96 [facility] Room Air 03/05/24 07:57 Temperature 99.3 F Pulse Rate Pulse Rate [Right Pulse Oximeter] 76 Respiratory Rate 16 Blood Pressure Blood Pressure [Ri ght Arm] 96/54 L Pulse Oximetry 94 Oxygen Delivery [facility] Labs Labs: Laboratory Results - last 24 hr 03/04/24 03/04/24 03/05/24 09:46 17:00 06:02 WBC 9.75 RBC 2.64 L Hgb 8.2 L Hct 24.6 L MCV 93 MCH 31 MCHC 33 RDW Coeff of Mayelin 13.1 Plt Count 211 Neut % (Auto) 72.5 H Lymph % (Auto) 17.3 L [place] % (Auto) 9.8 Eos % (Auto) 0.0 Baso % (Auto) 0.1 Neut # (Auto) 7.10 H Lymph # (Auto) 1.70 [place] # (Auto) 1.00 H Eos # (Auto) 0.00 Baso # (Auto) 0.01 Abs Immat Gran (auto) 0.03 Imm/Tot Granulo (auto) 0.3 Sodium 136 Potassium 4.0 BUN 21 Creatinine 0.6 Estimated Creat Clear 34.99 Estimated GFR 92 Troponin I < 0.01 L Blood Type O Positive Antibody Screen NEGATIVE
== END 2024-03-05 11:18 | disposition home or self-care (01) ==
LOC: OR 08:49 → MEDSURG 09:13
PROVIDERS: Family Medicine; PCP Family Medicine; Visit Provider Orthopaedic Surgery Sports Medicine
PROC: (CPT 27130; principal; 2024-03-04 11:00)
DX: M16.12 Unilateral primary osteoarthritis, left hip (principal); G89.18 Other acute postprocedural pain; D62 Acute posthemorrhagic anemia; R42 Dizziness and giddiness; M54.50 Low back pain, unspecified; M81.0 Age-related osteoporosis without current pathological fracture; G31.84 Mild cognitive impairment of uncertain or unknown etiology
CPT/HCPCS: 27130; 01214; 36415; 64450; 73501; 76942; 82565; 84132; 84295; 84484; 84520; 85018; 85025; 86850; 86900; 86901; 93005; 97110; 97116; 97161; 97165; 99100; A9270; C1776; J0690; J1100; J1170; J2250; J2704; J2795; J3010; J7120

== ENCOUNTER 2024-03-27 13:49 | Outpatient (CLI) | payer MEDICARE, BC, SELFPAY ==
--- OUTSIDE RECORDS SUMMARY | 2024-03-27 13:52 | XMS_ITS | Encounter Summary ---
Author Name Unknown Organization [facility] Address [address] [place] [address] Phone Care Team Providers Care Mixing Technician Name Role Phone Harini Scott MD Primary Care Provider [phone] Provider, Generic External Data Unavailable Unavailable Reason for Visit * Reason Comments Follow-up Encounter Details Date Type Department Care Team (Late st Contact Info) Description 12/18/2023 11:15 AM [facility] Office Visit Harini Scott MD [address] [place] [address] Harini Scott MD [address] [place] [address] Allergic rhinitis, unspecified seasonality, unspecified [...] or relatives? Once a week 11/21/2023 Attends Lutheran Services Not on file 11/21 Do you belong to any clubs o r organizations such as jainism groups, unions, fraternal or athletic groups, or [...] Recorded Patient Health Questionnaire-2 Score 4 11/21/2023 [facility] of Occupat ional Health - [...] place to sleep or slept in a [place] health care facility (including now)? No 11/21/2023 Sex and Gender [...] rhinitis and would like to see an triple drum operator. Otc antihistamines do not help. Pe Neuro-nonfocal. [...] type documented in this encounter Care Teams Mixing Technician Relationship Specialty Start Date End Date Harini Scott MD [address] [facility] [address] [place] [phone] PCP - General 11/20/20 Provider, Generic External Data 10/27/21 documented as of this encounter
--- OUTSIDE RECORDS SUMMARY | 2024-03-27 13:52 | XMS_ITS | Encounter Summary ---
Author Name Unknown Organization [facility] Address [address] [place] [address] Phone Care Team Providers Care [employer] Principal Name Role Phone Harini Scott MD Primary Care Provider [phone] Provider, Generic External Data Unavailable Unavailable Reason for Visit * Reason Comments Med Refill Encounter Details Date Type Department Care Team (Late st Contact Info) Description 02/04/2024 Refill Harini Scott MD [address] [place] [address] Harini Scott MD [address] [place] [address] Allergic rhinitis, unspecified seasonality, unspecified [...] or relatives? Once a week 11/21/2023 Attends Orthodoxy Services Not on file 11/21 Do you [...] Recorded Patient Health Questionnaire-2 Score 4 11/21/2023 [facility] of Occupat ional [facility] - Occupational Stress Questionnaire Answer Date [...] trigger documented in this encounter Care Teams [employer] Principal Relationship Specialty Start Date End Date Harini Scott MD [address] [place] [phone] PCP - General 11/20/20 Provider, Generic External Data 10/27/21 documented as of this encounter
--- OUTSIDE RECORDS SUMMARY | 2024-03-27 13:52 | XMS_ITS | Encounter Summary ---
Author Name Unknown Organization [facility] Address [address] [place] [address] Phone Care Team Providers Care Electric Solderer Name Role Phone Harini Scott MD Primary Care Provider Provider, Generic External Data Unavailable Unavailable Encounter Details Date Type Department Care Team (Late st Contact Info) Description 02/01/2024 Telephone Harini Scott MD [address] [place] [address] Harini Scott MD [address] [place] [address] Social History Tobacco Use Types [...] or relatives? Once a week 11/21/2023 Attends Amish Services Not on file 11/21 Do you belong to any clubs o r organizations such as protestant groups, unions, fraternal or athletic groups, or [...] Recorded Patient Health Questionnaire-2 Score 4 11/21/2023 [facility] of Occupat ional Health - Occupational Stress [...] place to sleep or slept in a assisted (including now)? No 11/21/2023 Sex and Gender Information Value Date Recorded Sex Assigned at Not on file Gender Identity Not on file Sexual Orientation Not on file documented as of this encounter Miscellaneous Notes * Telephone Encounter - Jeanne Asencio MA - 02/01/2024 10:55 AM MST Pt is requesting OxyContin states Vicodin is not doing anything for her, please send to [facility] on [address] * Telephone Encounter - [...] an apt with her Ortho dr in [place] on 02/20/24 to schedule her hip surgery,but she needs pain meds for 2 wks till she gets there. Pt stated that in the pass she was prescribeOxyContin and it work really good for her. She would like to know if could send in a rx to her local [facility] on [address]. documented in this encounter Plan of Treatment Not on file documented as of this encounter Visit Diagnoses Not on filedocumented in this encounter Care Teams Electric Solderer Relationship Specialty Start Date End Date Harini Scott MD [address] [place] [phone] PCP - General 11/20/20 Provider, Generic External Data 10/27/21 documented as of this encounter
--- OUTSIDE RECORDS SUMMARY | 2024-03-27 13:52 | XMS_ITS | Encounter Summary ---
Author Name Unknown Organization [facility] Address [address] [place] [address] Phone Care Team Providers Care Bottom Stainer Name Role Phone Harini Scott MD Primary Care Provider [phone] Provider, Generic External Data Unavailable Unavailable Encounter Details Date Type Department Care Team (Late st Contact Info) Description 02/01/2024 Orders Only Harini Scott MD [address] [place] [address] Harini Scott MD [address] [place] [address] Social History Tobacco Use Types [...] or relatives? Once a week 11/21/2023 Attends Hoahaoism Services Not on file 11/21 Do you belong to any clubs o r organizations such as zoroastrian groups, unions, fraternal or athletic groups, or [...] Recorded Patient Health Questionnaire-2 Score 4 11/21/2023 [facility] of Occupat ional Health - Occupational [...] on filedocumented in this encounter Care Teams Bottom Stainer Relationship Specialty Start Date End Date Harini Scott MD [address] [place] [phone] PCP - General 11/20/20 Provider, Generic External Data 10/27/21 documented as of this encounter
--- OUTSIDE RECORDS SUMMARY | 2024-03-27 13:52 | XMS_ITS | Encounter Summary ---
Author Name Unknown Organization [facility] Address [address] [place] [address] Phone Care Team Providers Care Icer Machine Name Role Phone Harini Scott MD Primary Care Provider Provider, Generic External Data Unavailable Unavailable Encounter Details Date Type Department Care Team (Late st Contact Info) Description 01/12/2024 Orders Only Harini Scott MD [address] [place] [address] Harini Scott MD [address] [place] [address] Social History Tobacco Use Types [...] or relatives? Once a week 11/21/2023 Attends Baptist Services Not on file 11/21 Do you belong to any clubs o r organizations such as worship groups, unions, fraternal or athletic groups, or [...] Recorded Patient Health Questionnaire-2 Score 4 11/21/2023 [facility] of Occupat ional Health - Occupational Stress [...] on filedocumented in this encounter Care Teams Icer Machine Relationship Specialty Start Date End Date Harini Scott MD [address] [place] [phone] PCP - General 11/20/20 Provider, Generic External Data 10/27/21 documented as of this encounter
--- OUTSIDE RECORDS SUMMARY | 2024-03-27 13:52 | XMS_ITS | Clinical Summary ---
Author Name Unknown Organization [facility] Address [address] [place] [phone] Phone Care Team Providers Care Ludlow Machine Operator Name Role Phone Harini Scott MD Primary Care Provider [phone] Provider, Generic External Data Unavailable Unavailable Allergies No known active allergies Medications Medication Sig Dispensed Refills Start Date End Date Status FISH OIL-CANOLA OIL-VIT D3 PO Active fluorouracil (Efudex) 5 % cream 02/18/2021 Active Glucosamine HCl (GLUCOSAMINE PO) Take 1 capsule by mouth 1 (one) time each day. Active calcium carbonate-vitamin D 600-200 MG-UNIT tablet Take by mouth. Active Multiple Vitamins-Minerals (voxqfskn-xkpebcx-nes n-lutein) tablet Take by mouth in the morning. Active Calcium 280 MG tablet Take 1 tablet by mouth 1 (one) time each day. Active triamcinolone (Kenalog) 0.1 % cream 10/25/2021 Act tj sertraline (Zoloft) 100 MG tablet Take by mouth. Active montelukast (Singulair) 10 MG tabletIndications:All ergic rhinitis, unspecified seasonality, unspecified trigger Take 1 tablet (10 mg) by mouth at bedtime. 90 tablet 01/14/2022 Active donepezil (Aricept) 10 MG tablet TAKE 1/2 TABLET BY MOUTH AT BEDTIME FOR 2 WEEKS THEN TAKE 1 TABLET AT BEDTIME 10/23/2023 Active gabapentin (Neurontin) 300 MG capsule TAKE 1 CAPSULE ORALLY TWICE A DAY 10/24/2023 Active HYDROcodone-acetamino phen (Tensed) 5-325 MG tablet 09/15/2023 Active zolpidem (Ambien) 5 MG tablet Take 1 tablet (5 mg) by mouth if needed at bedtime for sleep. 10/24/2023 Active valACYclovir (Valtrex) 1 g tablet TAKE 2 TABLETS BY MOUTH TWICE A DAY FOR 1 DAY 10/24/2023 Active traZODone (Desyrel) 100 MG tablet Take 2 tablets (200 mg) by mouth at bedtime. 11/08/2023 Active Azelastine HCl 137 MCG/SPRAY solutionIndications:A llergic rhinitis, unspecified seasonality, unspecified trigger SPRAY 1 SPRAY INTO EACH NOSTRIL IN THE MORNING AND BEFORE BEDTIME DIRECTED 20 mL 1 02/05/2024 Active Active Problems Problem Noted Date Diagnosed [...] Department Care Team Description 02/04/2024 Refill Harini Sctot MD [address] [place] [address] Harini Scott MD Allergic rhinitis, unspecified seasonality, unspecified trigger 02/01/2024 Orders Only Harini Scott MD [address] [place] [address] Harini Scott MD 02/01/2024 Telephone Harini Scott MD [address] [place] [address] Harini Scott MD 01/18/2024 11:30 AM [facility] Office Visit Harini Scott MD [address] [place] [phone] Harini Scott MD Anxiety (Primary Dx) 01/12/2024 Orders Only Harini Scott MD [address] [place] [address] Harini Scott MD from Last 3 Months Immunizations Name Administration [...] or neighbors? Three times a week 11/21/19 24 How often do you get togethe r with friends or relatives? Once a week 11/21/2023 Attends Faith Services Not on file 11/21 Do you belong to any clubs o r organizations such as sabianist groups, unions, fraternal or athletic groups, or [...] Recorded Patient Health Questionnaire-2 Score 4 11/21/2023 [facility] of Occupat ional [facility] - Occupational Stress Questionnaire Answer Date [...] place to sleep or slept in a long term (including now)? No 11/21/2023 Sex and Gender [...] 06/27/2018, 06/18/2015, 08/09/2010 Zoster Vaccine Discontinued 08/01/2019, 08/06/2018, 11/21/2016 Hepatitis C Screening Completed 10/27/2021 HIB [...] DEXA BONE DENSITY 10/28/2022 2:2 6 PM [facility] HEPATITIS C ANTIBODY Routine 10/27/2021 11:05 AM [facility] Need for hepatitis C screening test from Last 3 Months or Most Recently Relevant to Health Maintenance Results * DEXA BONE DENSITY (10/28/2022 2:26 PM [facility]) Anatomical Region Laterality Modality Body Radiographic Nakia ging [facility] DXA PRO CEDURES * Hepatitis C antibody (10/27/2021 11:05 AM [facility]) Hepatitis C Ab Nonreactive NON-REACT TJ 10/27/2021 3:30 PM [facility] Blood Venous blood specimen / Unknown Venipuncture / Unknown 10/27/2021 11:05 AM [facility] 10/27/2021 11:05 AM [facility] Narrative [facility] - 10/27/2021 3:30 PM [facility] REACTIVE: Presumptive evidence of antibodies to HCV; follow CDC recommendations for supplemental testing. GRAYZONE: Antibodies to HCV may or may not be present. Another specimen should be obtained from the individual for further testing. NONREACTIVE: Antibodies to HCV not detected; does not exclude early acute HCV infection. Harini Scott MD LAB BLOOD ORDERABLES [facility] [address] [place] [address] from Last 3 Months or Most Recently Relevant to Health Maintenance Care Teams Ludlow Machine Operator Relationship Specialty Start Date End Date Harini Scott MD [address] [place] [address] PCP - General 11/20/20 Provider, Generic External Data 10/27/21
--- OUTSIDE RECORDS SUMMARY | 2024-03-27 13:52 | XMS_ITS | Referral Summary ---
Author Name Unknown Organization [facility] Address [address] [place] [address] Phone Care Team Providers Care Set Making Machine Operator Name Role Phone Harini Scott MD Primary Care Provider [phone] Provider, Generic External Data Unavailable Unavailable Encounters Date Type Department Care Team Description 02/04/2024 Refill Harini Scott MD [address] [place] [address] Harini Scott MD Allergic rhinitis, unspecified seasonality, unspecified trigger 02/01/2024 Orders Only Harini Scott MD [address] [place] [address] Harini Scott MD 02/01/2024 Telephone Harini Scott MD [address] [place] [address] Harini Scott MD 01/18/2024 11:30 AM [facility] Office Visit Harini Scott MD [address] [place] [address] Harini Scott MD Anxiety (Primary Dx) 01/12/2024 Orders Only Harini Scott MD [address] [place] [address] Harini Scott MD from Last 3 Months Allergies No known active allergies Medications Medication Sig Dispensed Refills Start Date End Date Status FISH OIL-CANOLA OIL-VIT D3 PO Active fluorouracil (Efudex) 5 % cream 02/18/2021 Active Glucosamine HCl (GLUCOSAMINE PO) Take 1 capsule by mouth 1 (one) time each day. Active calcium carbonate-vitamin D 600-200 MG-UNIT tablet Take by mouth. Active Multiple Vitamins-Minerals (vxkhblxd-wqujnnj-kdm n-lutein) tablet Take by mouth in the [...] TWICE A DAY 10/24/2023 Active HYDROcodone-acetamino phen (Higgins) 5-325 MG tablet 09/15/2023 Active zolpidem (Ambien) [...] or relatives? Once a week 11/21/2023 Attends Sabianist Services Not on file 11/21 Do you belong to any clubs o r organizations such as advent groups, unions, fraternal or athletic groups, or [...] Recorded Patient Health Questionnaire-2 Score 4 11/21/2023 [facility] of Occupat ional [facility] - Occupational Stress Questionnaire Answer Date Recorded [...] place to sleep or slept in a retirement (including now)? No 11/21/2023 Sex and Gender Information Value Date Recorded Sex Assigned at Not on file Gender Identity Not on file Sexual Orientation Not on file Last Filed Vital Signs Vital Sign Reading Time Taken Comments Blood Pressure 136/74 11/21/2023 8:50 AM [facility] Pulse 67 11/21/2023 8:50 AM [facility] Temperature 36.7 ??C (98 ??F) 11/21/2023 8:50 AM [facility] Respiratory Rate - - Oxygen Saturation 98% 11/21/2023 8:50 AM [facility] Inhaled Oxygen Concentration - - Weight 45.8 kg (101 lb) 11/21/2023 8:50 AM [facility] Height 156.2 cm (5' 1.5) 11/21/2023 8:50 AM [facility] w/ shoes Body Mass Index 18.77 11/21/2023 8:50 AM [facility] Plan of Treatment Not on file Procedures Procedure Name Priority Date/Time Associated Diagnosis Comments DEXA BONE DENSITY 10/28/2022 2:2 6 PM [facility] HEPATITIS C ANTIBODY Routine 10/27/2021 11:05 AM [facility] Need for hepatitis C screening test from Last 3 Months or Most Recently Relevant to Health Maintenance Results * DEXA BONE DENSITY (10/28/2022 2:26 PM [facility]) Anatomical Region Laterality Modality Body [facility]ia [facility] * Hepatitis C antibody (10/27/2021 11:05 AM [facility]) Hepatitis C Ab Nonreactive NON-REACT TJ 10/27/2021 3:30 PM [facility] Blood Venous blood specimen / Unknown Venipuncture / Unknown 10/27/2021 11:05 AM [facility] 10/27/2021 11:05 AM [facility] Narrative [facility] - 10/27/2021 3:30 PM [facility] REACTIVE: Presumptive evidence of antibodies to HCV; follow CDC recommendations for supplemental testing. GRAYZONE: Antibodies to HCV may or may not be present. Another specimen should be obtained from the individual for further testing. NONREACTIVE: Antibodies to HCV not detected; does not exclude early acute HCV infection. Harini Scott MD LAB BLOOD ORDERABLES [facility] [address] [place] [address] from Last 3 Months or Most Recently Relevant to Health Maintenance Care Teams Set Making Machine Operator Relationship Specialty Start Date End Date Harini Scott MD [address] [place] [phone] PCP - General 11/20/20 Provider, Generic External Data 10/27/21
--- OUTSIDE RECORDS SUMMARY | 2024-03-27 13:52 | XMS_ITS | Encounter Summary ---
Author Name Unknown Organization [facility] Address [address] [place] [address] Phone Care Team Providers Care Legal Research Analyst Name Role Phone Harini Scott MD Primary Care Provider [phone] Provider, Generic External Data Unavailable Unavailable Reason for Visit * Reason Comments Follow-up Encounter Details Date Type Department Care Team (Late st Contact Info) Description 01/18/2024 11:30 AM [facility] Office Visit Harini Scott MD [address] [place] [address] Harini Scott MD [address] [place] [address] Anxiety (Primary Dx) Social History [...] any clubs o r organizations such as scientologist groups, unions, fraternal or athletic groups, or [...] Recorded Patient Health Questionnaire-2 Score 4 11/21/2023 [facility] - Occupational Stress Questionnaire Answer Date [...] place to sleep or slept in a chcf (including now)? No 11/21/2023 Sex and Gender [...] labs to patient. [address] , [place] [address]. Direct interaction between the patient or MPOA/Legal guardian and the billing provider Service performed via: Human Dem[employer] Patient consent obtained: verbally Minutes spent: 11 Reason for call: anxiety, fu Summary of discussion: see plan Outcome/recommendation: see plan documented in this encounter Plan of Treatment Not on file documented as of this encounter Visit Diagnoses Diagnosis Anxiety- Primary Anxiety state, unspecified documented in this encounter Care Teams Legal Research Analyst Relationship Specialty Start Date End Date Harini Scott MD [address] [place] [address] PCP - General 11/20/20 Provider, Generic External Data 10/27/21 documented as of this encounter
--- OUTSIDE RECORDS SUMMARY | 2024-03-27 13:53 | XMS_ITS | Encounter Summary ---
Author Name Unknown Organization [facility] Address [address] [place] [address] Phone Care Team Providers Care Database Report Writer Name Role Phone Harini Scott MD Primary Care Provider [phone] Provider, Generic External Data Unavailable Unavailable Reason for Visit * Reason Comments Med Refill Encounter Details Date Type Department Care Team (Late st Contact Info) Description 03/21/2023 Refill Harini Scott MD [address] [place] [address] Harini Scott MD [email or web address] [place] [address] Acute left-sided low back pain [...] slept in a longterm (including now)? No 10/27/2021 Sex and Gender Information Value Date Recorded Sex Assigned at Not on file Gender Identity Not on file Sexual Orientation Not on file documented as of this encounter Plan of Treatment Not on file documented as of this encounter Visit Diagnoses Diagnosis Acute left-sided low back pain without sciatica documented in this encounter Care Teams Database Report Writer Relationship Specialty Start Date End Date Harini Scott MD [address] [facility] [address] [place] [address] PCP - General 11/20/20 Provider, Generic External Data 10/27/21 documented as of this encounter
--- OUTSIDE RECORDS SUMMARY | 2024-03-27 13:53 | XMS_ITS | Referral Summary ---
Author Name Unknown Organization [facility] r Address [address] [place] [address] Care Team Providers Care Manager Housekeeping Name Role Phone Pcp, Pcp - No [...] Advance Directives For more information, please contact: [phone] * Full Code (Latest Code Status on File) Date Activated Date Inactivated Comments 10/11/2011 7:44 AM 10/11/2011 10:08 PM Care Teams Manager Housekeeping Relationship Specialty Start Date End Date Pcp Pcp - MD Kitty PCP - General 10/10/11
--- OUTSIDE RECORDS SUMMARY | 2024-03-27 13:53 | XMS_ITS | Clinical Summary ---
Author Name Unknown Organization [facility] r Address [address] [place] [address] Care Team Providers Care Limo Driver Name Role Phone Pcp, Pcp - No [...] PM MST Pulse 69 10/11/2011 5:43 PM [facility] Temperature 36.5 ??C (97.7 ??F) 10/11/2011 5:43 [...] Advance Directives For more information, please contact: [phone] * Full Code (Latest Code Status on File) Date Activated Date Inactivated Comments 10/11/2011 7:44 AM 10/11/2011 10:08 PM Care Teams Limo Driver Relationship Specialty Start Date End Date Pcp, Pcp - MD Kitty PCP - General 10/10/11
--- OUTSIDE RECORDS SUMMARY | 2024-03-27 13:53 | XMS_ITS | Clinical Summary ---
Author Name Unknown Organization [facility] Address [place], [place] [address] Care Team Providers Care Wig Maker Name Role Phone Autumn Escobedo AuD Unavailable [phone] None Primary Care Provider Unavailabl e Allergies [...] 1,000 units by mouth. 06/13/2022 Active omega 4-mhy-naa-fish oil (Fish OiL) 100-160-1,000 mg cap by Not Applicable route. Active omega-3 acid ethyl esters (LOVAZA;OMACOR) 1 gram capsule Take 1 Capsule by mouth. 06/13/2022 Active turmeric-g.tea-ptero stil-brocc 593-923-18-30 mg cap Take by mouth. 06/13/2022 Active [...] Care Team (Late st Contact Info) Description 04/02/2024 9:00 AM CDT Office Visit [facility] [address] [place] [address] Marc Feliz, AuD [address] [facility] [place] [phone] 04/02/2024 10:00 AM CDT Office Visit [facility] [address] [place] [address] Marc Feliz, AuD [address] [place] [address] Health Maintenance Due Date Last [...] 12:12 PM 12/01/2007 12:17 PM Care Teams Wig Maker Relationship Specialty Start Date End Date None . PCP - General 03/20/23 Autumn Escobedo AuD Audiology 08/15/12
--- NOTE | 2024-03-27 15:30 | XR_ITS ---
Patient: MICHELE SOMERS Facility:?[facility] Patient ID:?[id number] Site Patient ID:?[id number] Site :?1945 Study:?DEXA-Bone Density -03/27/2024 2:28:53 PM Ordering Physician:HOLGER Final Report: DXA BONE MINERAL DENSITY STUDY Reason for exam: Age-related osteoporosis. Current height (in): 61.0. Weight (lb): 102.0. Menopause age: 33. Ethnicity: White. 1. Have you had a previous hip or vertebral fracture? No. 2. Have you had any fractures during your adult life which did not result from significant trauma (e.g., auto accident)? No. 3. Did either of your parents have a hip fracture? No. 4. Do you smoke? No. 5. Have you ever taken Glucocorticoids? No. 6. Do you have rheumatoid arthritis? No. 7. Do you have secondary osteoporosis? No. 8. Do you drink 3 or more alcoholic drinks per day? No. 9. Are you being treated for osteoporosis? Yes. 10. Have you ever taken any of the following medications: Actonel, Evista, Fosamax, Miacalcin, Reclast, Boniva, Forteo, HRT (i.e. estrogen/hormone therapy), Protelos, Prolia, Vitamin D, Calcium, other ? please specify. ANSWER: Yes, Fosamax, vitamin D, calcium. 11. Do you have any of the following medical conditions: Anorexia or bulimia, asthma or emphysema, end stage renal disease, hyperparathyroidism, any seizure disorders, cancer, inflammatory bowel diseases, hysterectomy, other ? please specify. ANSWER: Yes, hysterectomy. 12. What was your maximum height (inches)? 63. 13. Do you perform weight bearing exercise regularly? Yes. 14. Do you regularly consume dairy products? Yes. 15. Do you drink caffeinated beverages? No. 16. At what age did your period start? 12. 17. Are you premenopausal? No. 18. How many full term pregnancies have you had? 3. 19. Have you ever missed your period for more than 6 months in a row (not including or menopause)? No. TECHNIQUE: Bone mineral density study was performed using the [employer] FINDINGS: The results of the study expressed as bone mineral density (BMD) are as follows: Lumbar spine L1, L4: BMD: 1.184 g/cm2. T-score: 1.3. Z-score: 3.9. Radius: Left Right 33%: BMD: 0.526 g/cm2. T-score: -2.8. Z-score: 0.2. IMPRESSION: Osteoporosis. *Comparison exams done prior to 04/2020 were performed on different unit, [employer]. COMPARISON: Compared with scan of 11/17/2022, the bone mineral density has increased by 2.8 percent at the forearm spine and increased by 5.4 percent at the spine. Compared with scan of 05/07/2020, the bone mineral density has decreased by 5.0 percent at the forearm and decreased by 6.0 percent at the hip. YAIR SHI M.D. BETTINA:ethel D& [email or web address] be/Dictated by: Yair Shi MD @ 03/27/2024 2:59:00 PM Signed by:?Yair Shi MD @03/28/2024 7:38:14 AM (Electronic Signature)
== END 2024-03-27 13:50 | disposition home or self-care (01) ==
LOC: RAD 13:50
PROVIDERS: PCP Family Medicine; Visit Provider Family Medicine
DX: M81.0 Age-related osteoporosis without current pathological fracture (principal)
CPT/HCPCS: 77080

== ENCOUNTER 2024-04-21 07:21 | Emergency (ER) | payer MEDICARE, BC, SELFPAY ==
[2024-04-21 07:29] VITALS: BP 118/64; PULSE 67; RESP 16; TEMP 37.2; O2SAT 98; BMI 18.6
--- NOTE | 2024-04-21 07:55 | ED_ITS ---
HPI - General Adult General Date Seen: 04/21/24 Chief complaint: Unspecified Complaint, Adult Stated complaint: swollen knuckle right hand ring finger Time Seen by Provider: 04/21/24 07:55 History of Present Illness HPI narrative: This is a very pleasant 78-year-old female who presents to the ER this morning with concerned that she cannot remove the ring from the ring finger of her right hand. She has had the ring in place for some years and has developed inc reasingly swollen knuckles in that finger. No acute change or new swelling, just swelling over time. She became where the ring was becoming tight and she could not get off over the knuckle so she came to the ER. The ring was removed easily (with a ring cutter) by nursing. And the patient now feels better. She was not having any discoloration, pallor, redness, or other new acute swelling of her finger. Related Data Home Medications ?Medication ?Instructions ?Recorded ?Confirmed cetirizine 10 mg tablet (Zyrtec) 10 mg PO DAILY 03/04/24 03/29/24 fluorouracil 5 % topical cream 1 applic topical DAILY 03/04/24 04/19/24 fluticasone propionate 50 2 spray intranasal DAILY 03/04/24 04/19/24 mcg/actuation nasal spray,suspension (Flonase Allergy Relief) omega-3 acid ethyl esters 1 gram 1 cap PO DAILY 03/04/24 04/19/24 capsule Previous Rx's ?Medication ?Instructions ?Recorded cholecalciferol (vitamin D3) 25 1,000 unit PO DAILY #90 tabs 10/24/23 mcg (1,000 unit) tablet gabapentin 300 mg capsule 300 mg PO BID #60 caps 01/03/24 trazodone 100 mg tablet 100 mg PO QHS PRN sleep #90 tabs 02/26/24 triamcinolone acetonide 0.1 % 1 applic topical BID #30 grams 02/26/24 topical ointment acetaminophen 500 mg capsule 500 - 1,000 mg (1 - 2 x 500 mg) PO 03/04/24 Q6H PRN #100 caps aspirin 81 mg tablet,delayed 81 mg PO BID #50 tabs 03/04/24 release sennosides 8.6 mg-docusate sodium 1 - 4 tab-cap (1 - 4 x 8.6-50 mg) 03/04/24 50 mg tablet (Senna-S) PO BID PRN constipation #60 tabs amoxicillin 500 mg capsule 2,000 mg (4 x 500 mg) PO ONCE 03/15/24 Dental Premed #4 caps oxycodone 5 mg tablet 2.5 - 5 mg (0.5 - 1 x 5 mg) PO 03/18/24 Q4-6H PRN pain #20 tabs sertraline 100 mg tablet 100 mg PO HS #90 tabs 04/16/24 Allergies Allergy/AdvReac Type Severity Reaction Status Date / Time pollen extracts Allergy Intermediate Verified 04/19/24 09:47 [facility] Medical History (Updated 04/21/24 @ 08:30 by Jorge Hilliard MD) Bilateral cataracts ?H26.9 - Unspecified cataract (ICD-10) 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) ?M47.816 - Spondylosis without myelopathy or radiculopathy, lumbar region (ICD-10) Osteopenia (12/16/22) ?M85.80 - Other specified disorders of bone density and structure, unspecified site (ICD-10) Memory deficit (11/21/23) ?R41.3 - Other amnesia (ICD-10) Incontinence of feces (11/21/23) ?R15.9 - Full incontinence of feces (ICD-10) 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/22/19) ?Z85.89 - Personal history of malignant neoplasm of other organs and systems (ICD-10) History of Lyme disease (11/22/19) ?Z86.19 - Personal history of other infectious and parasitic diseases (ICD- 10) History of COVID-19 (10/27/21) ?Z86.16 - Personal history of COVID-19 (ICD-10) Hearing aid worn (10/27/21) ?Z97.4 - Presence of external hearing-aid (ICD-10) Depression, major, 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) ?F32.4 - Major depressive disorder, single episode, in partial remission (ICD-10) Osteoporosis (11/22/19) ?M81.0 - Age-related osteoporosis without current pathological fracture (ICD- 10) Insomnia (11/22/19) ?G47.00 - Insomnia, unspecified (ICD-10) Allergic rhinitis (01/14/22) ?J30.9 - Allergic rhinitis, unspecified (ICD-10) Allergic rhinitis ?J30.9 - Allergic rhinitis, unspecified (ICD-10) Vitamin D deficiency ?E55.9 - Vitamin D deficiency, unspecified (ICD-10) Cognitive impairment ?R41.89 - Other symptoms and signs involving cognitive functions and awareness (ICD-10) Degenerative scoliosis ?M41.80 - Other forms of scoliosis, site unspecified (ICD-10) Osteoarthritis of left hip ?M16.12 - Unilateral primary osteoarthritis, left hip (ICD-10) Sensorineural hearing loss (SNHL) of both ears ?H90.3 - Sensorineural hearing loss, bilateral (ICD-10) 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 ?L03.90 - Cellulitis, unspecified (ICD-10) ?A28.0 - Pasteurellosis (ICD-10) ?W55.01XA - Bitten by cat, initial encounter (ICD-10) Osteoporosis (2012) ?M81.0 - Age-related osteoporosis without current pathological fracture (ICD- 10) Lyme disease (08/10/13) ?A69.20 - Lyme disease, unspecified (ICD-10) Insomnia ?G47.00 - Insomnia, unspecified (ICD-10) Depression ?F32.A - Depression, unspecified (ICD-10) Chronic back pain (04/22/13) ?M54.9 - Dorsalgia, unspecified (ICD-10) ?G89.29 - Other chronic pain (ICD-10) Anxiety ?F41.9 - Anxiety disorder, unspecified (ICD-10) Surgical History (Updated 04/19/24 @ 10:30 by Ion Campos MD) History of total left hip replacement (03/04/24) ?Z96.642 - Presence of left artificial hip joint (ICD-10) H/O excision of ganglion cyst (04/03/97) ?Z98.890 - Other specified postprocedural states (ICD-10) History of laminectomy ?Z98.890 - Other specified postprocedural states (ICD-10) 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) ?Z96.641 - Presence of right artificial hip joint (ICD-10) Status post dilation and curettage (1989) ?Z98.890 - Other specified postprocedural states (ICD-10) History of microdiscectomy (2007) ?Z98.890 - Other specified postprocedural states (ICD-10) History of hysterectomy (1989) ?Z90.710 - Acquired absence of both cervix and uterus (ICD-10) Family History Father Depression Social History (Reviewed 02/20/24 @ 09:36 by Lianet Morel ~ SUPERVISOR SPECIAL EDUCATION, SUPERVISOR [employer] EDUCATION) Narrative: Exercises regularly- 3-4/ week, walking, 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 , 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, 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 Non-smoker Social drinker What is your current living situation?: I presently have a place to live In the past 12 months, utilities in danger of being shut off: no In past 12 months, lack of transportation kept you from medical appts, meetings, work, or getting things needed for daily living: no In the past 12 mos, have been you worried that your food would run out before you had money to buy more?: never true In the past 12 mos, the food you bought just didn't last and you didn't have money to buy more?: never true Smoking Status: Never smoker Do you use any of these nicotine containing products: None Second hand tobacco smoke exposure: No How often do you have a drink containing alcohol: 4 or more times a week AUDIT-C Alcohol total score: 4 Non-prescribed substance use: denies use How often does anyone, including family, friends and others, physically hurt you : never How often does anyone, including family, friends and others, insult or talk down to you: never How often does anyone, including family, friends and others, threaten you with harm: never How often does anyone, including family, friends and others, scream or curse at you: never Little interest or pleasure in doing things: not at all Feeling down, depressed, or hopeless: several days Exam Narrative: Exam Narrative: Constitutional: Appears well-developed and well-nourished. Active, polite. Non- toxic appearing. HENT: Head: Atraumatic. No signs of injury. Nose: No nasal discharge. Mouth/Throat: Mucous membranes are moist. Eyes: Conjunctivae normal and EOM are normal. Pupils are equal, round, and reactive to light. Right eye exhibits no discharge. Left eye exhibits no dis charge. No icterus. Neck: Normal range of motion. Neck supple. No adenopathy. No stridor. Cardiovascular: Brisk capillary refill in her distal finger tip. Pulmonary/Chest: Effort normal. No stridor. No respiratory distress. Musculoskeletal: The nurses had already removed her ring at the triage process. So at the time I saw her her finger was normal. Normal range of motion. In her MCP, PIP, DI P joint. She does have swelling of multiple PIP joints and less so the D IP joints consistent with chronic arthritis. There is no acute erythema or warmth or redness to suggest an acute infection. I do not see any pallor or discoloration of the digit to suggest any vascular compromise. Neurological: Alert. Normal strength. No cranial nerve deficit or sensory deficit. Coordination normal. GCS eye subscore is 4. GCS verbal subscore is 5. GCS motor subscore is 6. Intact digital nerve function. Skin: Skin is warm. No rash noted. Const: Vital Signs, click to edit/add: Vital Signs - 24 hr 04/21/24 07:29 Temperature 99 F Pulse Rate [Pulse Oximeter] 67 Respiratory Rate 16 Blood Pressure [Le ft Upper Arm] 118/64 Pulse Oximetry 98 Oxygen Delivery Me thod Room Air Course Vital Signs Vital signs: Initial Vital Signs Temperature 99 F 04/21/24 07:29 Temperature Source Temporal Artery Scan 04/21/24 07:29 Pulse Rate 67 04/21/24 07:29 Respiratory Rate 16 04/21/24 07:29 Blood Pressure 118/64 04/21/24 07:29 Blood Pressure Mean 82 04/21/24 07:29 Blood Pressure Position Supine 04/21/24 07:29 Pulse Oximetry 98 04/21/24 07:29 Oxygen Delivery Method Room Air 04/21/24 07:29 Vital Signs Temperature 99 F 04/21/24 07:29 Pulse Rate 67 04/21/24 07:29 Respiratory Rate 16 04/21/24 07:29 Blood Pressure 118/64 04/21/24 07:29 Pulse Oximetry 98 04/21/24 07:29 Oxygen Delivery Method Room Air 04/21/24 07:29 Temperature 99 F 04/21/24 07:29 Pulse Rate 67 04/21/24 07:29 Respiratory Rate 16 04/21/24 07:29 Blood Pressure 118/64 04/21/24 07:29 Pulse Oximetry 98 04/21/24 07:29 Oxygen Delivery Method Room Air 04/21/24 07:29 Medical Decision Making MDM Narrative Medical decision making narrative: Very pleasant 78-year-old female presenting to the ER today because she has, over time, developed progressive swelling of the PIP joints of her fingers, in particular the PIP joint of the ring finger on her right hand. It is made her finger too large to get her ring off the ring finger. It was beginning to feel tight this morning so she came in. There is not really any acute change here or any sign of any acute cellulitis, tenosynovitis, arthritis in the finger. No recent trauma because it to be swollen. At this point she does not need radiographic workup, labs, antibiotics. Fortunately she came into the ER well before she developed any vascular constriction or other physiologic compromise from the ring. no sign of any acute ischemia or constriction of the finger. It was removed (using a ring cutter) by nursing at triage. At this point her finger is now normal. No skin laceration. No skin maceration or breakdown. She is neurovascularly intact. She will follow-up with her jeweler to have the ring Khadar eyes during she will follow-up with her doctor or come back to the ER if any other problems develop. Discharge Plan Discharge Clinical Impression: Swelling of finger joint Patient Disposition: Home, Self-Care Condition: Stable Instructions: Swollen Joint (ED) Additional Instructions: Please follow-up with your doctor or come back to ER in time if you have problems especially worsening pain or swelling in your finger, or any concerns. Prescriptions: No Action trazodone 100 mg tablet 100 mg PO QHS PRN (Reason: sleep) Qty: 90 0RF triamcinolone acetonide 0.1 % ointment 1 applic topical BID Qty: 30 0RF amoxicillin 500 mg capsule 2,000 mg PO ONCE Qty: 4 3RF Rx Instructions: Take 4 tablets by mouth 1 hour prior to dental appointment cetirizine [Zyrtec] 10 mg tablet 10 mg PO DAILY fluorouracil 5 % cream 1 applic topical DAILY fluticasone propionate [Flonase Allergy Relief] 50 mcg/actuation spray,suspension 2 spray intranasal DAILY Rx Instructions: administer into each nostril omega-3 acid ethyl esters 1 gram capsule 1 cap PO DAILY sennosides-docusate sodium [Senna-S] 8.6-50 mg tablet 1 - 4 tab-cap PO BID PRN (Reason: constipation) Qty: 60 0RF Rx Instructions: Hold medication if experiencing loose stools. aspirin 81 mg tablet,delayed release (DR/EC) 81 mg PO BID Qty: 50 0RF Rx Instructions: Medication to help prevent blood clots postoperatively; take TWICE daily. acetaminophen 500 mg capsule 500 - 1,000 mg PO Q6H MDD 4000mg PRNQty: 100 0RF cholecalciferol (vitamin D3) 25 mcg (1,000 unit) tablet 1,000 unit PO DAILY Qty: 90 3RF gabapentin 300 mg capsule 300 mg PO BID Qty: 60 1RF oxycodone 5 mg tablet 2.5 - 5 mg PO Q4-6H MDD 6 PRN (Reason: pain) Qty: 20 0RF Rx Instructions: Take as needed for postop pain: 2.5mg mild pain, 5mg moderate-severe pain; wean as tolerated. sertraline 100 mg tablet 100 mg PO HS Qty: 90 1RF Follow Up/Referrals: Ed Walsh MD [Primary Care Provider] - Stand Alone Forms: [employer] Info Instructions
--- OUTSIDE RECORDS SUMMARY | 2024-04-21 08:25 | XMS_ITS | Clinical Summary ---
Author Organization [facility] Address [address] [place] [address] Phone Care Team Providers Care Electrical Tester Battery Name Role Phone Harini Scott MD Primary Care Provider [phone] Provider, Generic External Data Unavailable Unavailable Allergies No known active allergies Medications Medication Sig Dispensed Refills Start Date End Date Status FISH OIL-CANOLA OIL-VIT D3 PO Active fluorouracil (Efudex) 5 % cream 02/18/2021 Active Glucosamine HCl (GLUCOSAMINE PO) Take 1 capsule by mouth 1 (one) time each day. Active calcium carbonate-vitamin D 600-200 MG-UNIT tablet Take by mouth. Active Multiple Vitamins-Minerals (xeezmggv-pypdzha-vjt n-lutein) tablet Take by mouth in the [...] TWICE A DAY 10/24/2023 Active HYDROcodone-acetamino phen (Jenners) 5-325 MG tablet 09/15/2023 Active zolpidem (Ambien) [...] 02/04/2024 Refill Harini Scott MD [address] [place] [address] Harini Scott MD Allergic rhinitis, unspecified seasonality, unspecified trigger 02/01/2024 Orders Only Harini Scott MD [address] [place] [address] Harini Scott MD 02/01/2024 Telephone Harini Scott MD [address] [place] [address] Harini Scott MD from Last [...] or relatives? Once a week 11/21/2023 Attends Y[employer]ani Services Not on file 11/21 Do you [...] Recorded Patient Health Questionnaire-2 Score 4 11/21/2023 [facility] [place] of Occupat ional Health - Occupational Stress [...] DEXA BONE DENSITY 10/28/2022 2:2 6 PM [facility] HEPATITIS C ANTIBODY Routine 10/27/2021 11:05 AM [facility] Need for hepatitis C screening test from Last 3 Months or Most Recently Relevant to Health Maintenance Results * DEXA BONE DENSITY (10/28/2022 2:26 PM [facility]) Anatomical Region Laterality Modality Body Radiographic Nakia ging [facility] IMG DXA PRO CEDURES * Hepatitis C antibody (10/27/2021 11:05 AM [facility]) Hepatitis C Ab Nonreactive NON-REACT TJ 10/27/2021 3:30 PM [facility] Blood Venous blood specimen / Unknown Venipuncture / Unknown 10/27/2021 11:05 AM [facility] 10/27/2021 11:05 AM [facility] Narrative [facility] - 10/27/2021 3:30 PM [facility] REACTIVE: Presumptive evidence of antibodies to HCV; follow CDC recommendations for supplemental testing. GRAYZONE: Antibodies to HCV may or may not be present. Another specimen should be obtained from the individual for further testing. NONREACTIVE: Antibodies to HCV not detected; does not exclude early acute HCV infection. Harini Scott MD LAB BLOOD ORDERABLES [facility] [address] [place] [address] from Last 3 Months or Most Recently Relevant to Health Maintenance Care Teams Electrical Tester Battery Relationship Specialty Start Date End Date Harini Scott MD [address] [place] [address] PCP - General 11/20/20 Provider, Generic External Data 10/27/21
--- OUTSIDE RECORDS SUMMARY | 2024-04-21 08:25 | XMS_ITS | Encounter Summary ---
Author Organization [facility] Address [address] [place] [address] Phone Care Team Providers Care Online Content Coordinator Name Role Phone Harini Scott MD Primary Care Provider [phone] Provider, Generic External Data Unavailable Unavailable Encounter Details Date Type Department Care Team (Late st Contact Info) Description 02/01/2024 Orders Only Harini Scott MD [address] [place] [address] Harini Scott MD [address] + [address] [place] [address] Social History Tobacco Use Types [...] any clubs o r organizations such as anglican groups, unions, fraternal or athletic groups, or [...] Recorded Patient Health Questionnaire-2 Score 4 11/21/2023 [facility] of Occupat ional Health - Occupational [...] place to sleep or slept in a mcfp (including now)? No 11/21/2023 Sex and Gender Information Value Date Recorded Sex Assigned at Not on file Gender Identity Not on file Sexual Orientation Not on file documented as of this encounter Plan of Treatment Not on file documented as of this encounter Visit Diagnoses Not on filedocumented in this encounter Care Teams Online Content Coordinator Relationship Specialty Start Date End Date Harini Scott MD [address] [facility] [address] [place] [phone] PCP - General 11/20/20 Provider, Generic External Data 10/27/21 documented as of this encounter
--- OUTSIDE RECORDS SUMMARY | 2024-04-21 08:25 | XMS_ITS | Referral Summary ---
Author Organization [facility] Address [address] [place] [address] Phone Care Team Providers Care Patient Care Director Name Role Phone Harini Scott MD Primary Care Provider [phone] Provider, Generic External Data Unavailable Unavailable Encounters Date Type Department Care Team Description 02/04/2024 Refill Harini Scott MD [address] [place] [address] Harini Scott MD Allergic rhinitis, unspecified seasonality, unspecified trigger 02/01/2024 Orders Only Harini Scott MD [address] [place] [address] Harini Scott MD 02/01/2024 Telephone Harini Scott MD [address] [place] [address] Harini Scott MD from Last [...] tablet Take by mouth. Active Multiple Vitamins-Minerals (mhpsgwxm-fpfqsfx-wrq n-lutein) tablet Take by mouth in the [...] TWICE A DAY 10/24/2023 Active HYDROcodone-acetamino phen ([place]) 5-325 MG tablet 09/15/2023 Active zolpidem (Ambien) [...] or relatives? Once a week 11/21/2023 Attends Christian Services Not on file 11/21 Do you belong to any clubs o r organizations such as roman catholic groups, unions, fraternal or athletic groups, [...] Patient Health Questionnaire-2 Score 4 11/21/2023 [facility] of Occupat ional Health - Occupational Stress [...] place to sleep or slept in a custodial (including now)? No 11/21/2023 Sex and Gender Information Value Date Recorded Sex Assigned at Not on file Gender Identity Not on file Sexual Orientation Not on file Last Filed Vital Signs Vital Sign Reading Time Taken Comments Blood Pressure 136/74 11/21/2023 8:50 AM [facility] Pulse 67 11/21/2023 8:50 AM [facility] Temperature 36.7 ??C (98 ??F) 11/21/2023 8:50 AM [facility] Respiratory Rate - - Oxygen Saturation 98% 11/21/2023 8:50 AM [facility] Inhaled Oxygen Concentration - - Weight 45.8 kg (101 lb) 11/21/2023 8:50 AM [facility] Height 156.2 cm (5' 1.5) 11/21/2023 8:50 AM [facility] w/ shoes Body Mass Index 18.77 11/21/2023 8:50 AM [facility] Plan of Treatment Not on file Procedures Procedure Name Priority Date/Time Associated Diagnosis Comments DEXA BONE DENSITY 10/28/2022 2:2 6 PM [facility] HEPATITIS C ANTIBODY Routine 10/27/2021 11:05 AM [facility] Need for hepatitis C screening test from Last 3 Months or Most Recently Relevant to Health Maintenance Results * DEXA BONE DENSITY (10/28/2022 2:26 PM [facility]) Anatomical Region Laterality Modality Body Radiographic Nakia ging [facility] IMG DXA PRO CEDURES * Hepatitis C antibody (10/27/2021 11:05 AM [facility]) Hepatitis C Ab Nonreactive NON-REACT TJ 10/27/2021 3:30 PM [facility] Blood Venous blood specimen / Unknown Venipuncture / Unknown 10/27/2021 11:05 AM [facility] 10/27/2021 11:05 AM [facility] Narrative [facility] - 10/27/2021 3:30 PM [facility] REACTIVE: Presumptive evidence of antibodies to HCV; follow CDC recommendations for supplemental testing. GRAYZONE: Antibodies to HCV may or may not be present. Another specimen should be obtained from the individual for further testing. NONREACTIVE: Antibodies to HCV not detected; does not exclude early acute HCV infection. Harini Scott MD LAB BLOOD ORDERABLES [facility] [address] [place] [address] from Last 3 Months or Most Recently Relevant to Health Maintenance Care Teams Patient Care Director Relationship Specialty Start Date End Date Harini Scott MD [address] [place] [phone] PCP - General 11/20/20 Provider, Generic External Data 10/27/21
--- OUTSIDE RECORDS SUMMARY | 2024-04-21 08:25 | XMS_ITS | Encounter Summary ---
Author Organization [facility] Address [address] [place] [address] Phone Care Team Providers Care Systems Mechanic Name Role Phone Harini Scott MD Primary Care Provider [phone] Provider, Generic External Data Unavailable Unavailable Reason for Visit * Reason Comments Med Refill Encounter Details Date Type Department Care Team (Late st Contact Info) Description 02/04/2024 Refill Harini Scott MD [address] [place] [address] Harini Scott MD [address] [place] [address] Allergic rhinitis, unspecified seasonality, unspecified [...] or relatives? Once a week 11/21/2023 Attends Buddhist Services Not on file 11/21 Do you [...] 4 11/21/2023 [facility] of Occupat ional [facility] - Occupational Stress Questionnaire Answer Date [...] trigger documented in this encounter Care Teams Systems Mechanic Relationship Specialty Start Date End Date Harini Scott MD [address] [place] [phone] PCP - General 11/20/20 Provider, Generic External Data 10/27/21 documented as of this encounter
--- OUTSIDE RECORDS SUMMARY | 2024-04-21 08:26 | XMS_ITS | Continuity of Care Document ---
Author Organization [facility] Address [address] [place] [address] Phone Care Team Providers Care Natural Remedy Consultant Name Role Phone Federico Holley Unavailable Unavailable [...] Active Procedures Procedure Date Office/outpatient Visit, [facility] Advance Directives Directive Yes / No Effective Date File Name No Information Encounters Encounter Description Practice Location Reason(s) For Visit Diagnoses Date Provider Providers Copied on Encounter [facility], [address], [place], [place], [id number], [place] tel:[phone] ROBERTA Azar Primary generalized (osteo)arthritisPo lyneuropathy, unspecified [address] Wendy Caballero. [address], [place], [place], [id number], [place]. tel:[phone] Office/outpa tient Visit, [facility], [address], [place], [place], [id number], [place] tel:[phone] ROBERTA Azar Neuropathy (chief complaint) NeuropathyPrimary osteoarthritis involving multiple joints 9 Wendy Caballero. [address], [place], [place], [id number], [place]. tel:[phone] Referring Provider: Elva Levi , [address], [place], [address] . tel:[phone] Family History Family Member Type Diagnosis Age At Onset Father Problem (finding) gout Payers Payer name Insurance type Covered republican ID Authorpinky white(s) Medicare 87808 [id number] [place] PPO [id number] BL [id number] Social History Type Description Quantity Date Captured [...]
--- OUTSIDE RECORDS SUMMARY | 2024-04-21 08:26 | XMS_ITS | Encounter Summary ---
Author Organization [facility] Address [address] [place] [address] Phone Care Team Providers Care Door Puller Name Role Phone Harini Scott MD Primary Care Provider [phone] Provider, Generic External Data Unavailable Unavailable Encounter Details Date Type Department Care Team (Late st Contact Info) Description 01/12/2024 Orders Only Harini Scott MD [address] [place] [address] Harini Scott MD [address] [place] [address] Social History Tobacco Use Types [...] or relatives? Once a week 11/21/2023 Attends Congregational Services Not on file 11/21 Do you belong to any clubs o r organizations such as mu-ism groups, unions, fraternal or athletic groups, or [...] Recorded Patient Health Questionnaire-2 Score 4 11/21/2023 [facility] of Occupat ional Health - Occupational [...] on filedocumented in this encounter Care Teams Door Puller Relationship Specialty Start Date End Date Harini Scott MD [address] [facility] [address] [place] [phone] PCP - General 11/20/20 Provider, Generic External Data 10/27/21 documented as of this encounter
--- OUTSIDE RECORDS SUMMARY | 2024-04-21 08:26 | XMS_ITS | Encounter Summary ---
Author Organization [facility] Address [address] [place] [address] Phone Care Team Providers Care Ticket Dispatcher Name Role Phone Harini Scott MD Primary Care Provider [phone] Provider, Generic External Data Unavailable Unavailable Reason for Visit * Reason Comments Med Refill Encounter Details Date Type Department Care Team (Late st Contact Info) Description 03/21/2023 Refill Harini Scott MD [email or web address] [place] [address] Harini Scott MD [email or web address] [place] [address] Acute left-sided low back pain [...] place to sleep or slept in a usp (including now)? No 10/27/2021 Sex and Gender Information Value Date Recorded Sex Assigned at Not on file Gender Identity Not on file Sexual Orientation Not on file documented as of this encounter Plan of Treatment Not on file documented as of this encounter Visit Diagnoses Diagnosis Acute left-sided low back pain without sciatica documented in this encounter Care Teams Ticket Dispatcher Relationship Specialty Start Date End Date Harini Scott MD [address] [facility] [address] [place] [address] PCP - General 11/20/20 Provider, Generic External Data 10/27/21 documented as of this encounter
--- OUTSIDE RECORDS SUMMARY | 2024-04-21 08:26 | XMS_ITS | Clinical Summary ---
Author Organization [facility] Address [address] [place] [address] Care Team Providers Care Expedition Supervisor Name Role Phone Pcp, Pcp - No [...] Comments Blood Pressure 119/69 10/11/2011 5:43 PM [facility] Pulse 69 10/11/2011 5:43 PM [facility] Temperature 36.5 ??C (97.7 ??F) 10/11/2011 5:43 [...] Advance Directives For more information, please contact: [phone] * Full Code (Latest Code Status on File) Date Activated Date Inactivated Comments 10/11/2011 7:44 AM 10/11/2011 10:08 PM Care Teams Expedition Supervisor Relationship Specialty Start Date End Date Pcp, Pcp - MD Kitty PCP - General 10/10/11
--- OUTSIDE RECORDS SUMMARY | 2024-04-21 08:26 | XMS_ITS | Referral Summary ---
Author Organization [facility] Address [address] [place] [address] Care Team Providers Care Lan Manager Name Role Phone Pcp, Pcp - No [...] Advance Directives For more information, please contact: [phone] * Full Code (Latest Code Status on File) Date Activated Date Inactivated Comments 10/11/2011 7:44 AM 10/11/2011 10:08 PM Care Teams Lan Manager Relationship Specialty Start Date End Date Pcp Pcp - MD Kitty PCP - General 10/10/11
--- OUTSIDE RECORDS SUMMARY | 2024-04-21 08:26 | XMS_ITS | Encounter Summary ---
Author Organization [facility] Address [address] [place] [address] Phone Care Team Providers Care Quail Farmer Name Role Phone Harini Scott MD Primary Care Provider [phone] Provider, Generic External Data Unavailable Unavailable Reason for Visit * Reason Comments Follow-up Encounter Details Date Type Department Care Team (Late st Contact Info) Description 01/18/2024 11:30 AM [facility] Office Visit Harini Scott MD [address] [place] [address] Harini Scott MD [address] [place] [address] Anxiety (Primary Dx) Social History [...] or relatives? Once a week 11/21/2023 Attends Voodoo Services Not on file 11/21 Do you belong to any clubs o r organizations such as restoration groups, unions, fraternal or athletic groups, or [...] Recorded Patient Health Questionnaire-2 Score 4 11/21/2023 [facility] of Occupat ional [facility] - Occupational Stress Questionnaire Answer Date [...] place to sleep or slept in a senior living (including now)? No 11/21/2023 Sex and Gender [...] labs to patient. [address] , [place] [address]. Direct interaction between the patient or MPOA/Legal guardian and the billing provider Service performed via: SightCall Patient consent obtained: verbally Minutes spent: 11 Reason for call: anxiety, fu Summary of discussion: see plan Outcome/recommendation: see plan documented in this encounter Plan of Treatment Not on file documented as of this encounter Visit Diagnoses Diagnosis Anxiety- Primary Anxiety state, unspecified documented in this encounter Care Teams Quail Farmer Relationship Specialty Start Date End Date Harini Scott MD [address] [place] [address] PCP - General 11/20/20 Provider, Generic External Data 10/27/21 documented as of this encounter
--- OUTSIDE RECORDS SUMMARY | 2024-04-21 08:26 | XMS_ITS | Encounter Summary ---
Author Organization [facility] Address [address] [place] [address] Phone Care Team Providers Care Parts Sales Associate Name Role Phone Harini Scott MD Primary Care Provider [phone] Provider, Generic External Data Unavailable Unavailable Encounter Details Date Type Department Care Team (Late st Contact Info) Description 02/01/2024 Telephone Harini Scott MD [address] [place] [address] Harini Scott MD [address] [place] [address] Social History Tobacco Use Types [...] Recorded Patient Health Questionnaire-2 Score 4 11/21/2023 [facility] of Occupat ional Health - Occupational [...] doing anything for her, please send to [facility] on [address] * Telephone Encounter - [...] an apt with her Ortho dr in [place] on 02/20/24 to schedule her hip surgery,but she needs pain meds for 2 wks till she gets there. Pt stated that in the pass she was prescribeOxyContin and it work really good for her. She would like to know if could send in a rx to her local [facility] on [address]. documented in this encounter Plan of Treatment Not on file documented as of this encounter Visit Diagnoses Not on filedocumented in this encounter Care Teams Parts Sales Associate Relationship Specialty Start Date End Date Harini Scott MD [address] [place] [address] PCP - General 1/1/21 Provider, Generic External Data 10/27/21 documented as of this encounter
--- OUTSIDE RECORDS SUMMARY | 2024-04-21 08:26 | XMS_ITS | Clinical Summary ---
Author Organization [employer] [facility] Address [place], [place] [address] Care Team Providers Care Household Refrigeration Mechanic Name Role Phone Autumn Escobedo AuD Unavailable [phone] None Primary Care Provider Unavailabl e Allergies [...] 1,000 units by mouth. 06/13/2022 Active omega 2-tzh-sms-fish oil (Fish OiL) 100-160-1,000 mg cap by Not Applicable route. Active omega-3 acid ethyl esters (LOVAZA;OMACOR) 1 gram capsule Take 1 Capsule by mouth. 06/13/2022 Active turmeric-g.tea-ptero stil-brocc 234-278-53-30 mg cap Take by mouth. 06/13/2022 Active [...] Disorder of bone and cartilage, unspecified 06/2007 Encounters Date Type Department Care Team Description 04/02/2024 10:00 AM CDT Office Visit [facility] [address] [place] [address] Marc Feliz AuD Hearing Aid (Consultation) 04/02/2024 9:00 AM CDT Office Visit [facility] [address] [place] [address] Marc Feliz AuD Hearing Problem 04/02/2024 Travel from Last 3 Months Immunizations Name Administration Dates Next Due Hepatitis [...] Care Team (Late st Contact Info) Description 05/02/2024 9:00 AM CDT Office Visit [facility] [address] [place], [place] [id number] Marc Feliz AuD [address] [place] [phone] 05/09/2024 9:00 AM CDT Office Visit [facility] [address] [place] [address] Marc Feliz AuD [address] [place] [phone] Health Maintenance Due Date Last Done Comments Depression screening for age 12+ 1957 BMI (ht and wt on same day) for age 18+ 1963 Hepatitis C screening for ag e 18-79 1963 Zoster (shingles) series for age 50+ (1 of 2) 1995 DEXA/DXA scan for age 65+ 2010 Medicare Wellness for age 65+ 2010 Pneumococcal series for age 65+ (1 of 1 - PCV) 2010 Tetanus booster 06/21/2016 06/21/2006 Influenza for age 65+ 07/21/2024 Tdap Completed 06/21/2006 COVID-19 vaccine series Completed 02/27/20 24, 08/24/2023, 03/26/2023, Additional history exists Advance Directives * Full Code (Latest Code Status on File) Date Activated Date Inactivated Comments 11/30/2007 12:12 PM 12/01/2007 12:17 PM Care Teams Household Refrigeration Mechanic Relationship Specialty Start Date End Date None . PCP - General 03/20/23 Autumn Escobedo AuD Audiology 08/15/12
--- NOTE | 2024-05-09 13:55 | ONC.NURNOTE ---
Patient left a message inquiring about the Reclast order that was sent in by Dr. Walsh a few months ago. Called patient back and left a message stating that we have the order and the PA is completed but patients last dose of reclast was 07/13/23 so we would need to wait until after 07/13/24. Encouraged patient to call us back and make an appointment for sometime after 07/13/24.
== END 2024-04-21 08:38 | disposition home or self-care (01) ==
PROVIDERS: Emergency Provider Emergency Medicine; PCP Family Medicine
DX: M25.441 Effusion, right hand (principal)
CPT/HCPCS: 99281; 99282; 99283

== ENCOUNTER 2024-06-07 10:35 | Outpatient (CLI) | payer MEDICARE, BC, SELFPAY ==
--- OUTSIDE RECORDS SUMMARY | 2024-06-07 10:40 | XMS_ITS | Clinical Summary ---
Author Organization [employer] [facility] Address [place], [place] [address] Care Team Providers Care District Plant Superintendent Name Role Phone Autumn Escobedo AuD Unavailable [phone] None Primary Care Provider Unavailabl e Allergies [...] 1,000 units by mouth. 06/13/2022 Active omega 3-tuk-bab-fish oil (Fish OiL) 100-160-1,000 mg cap by Not Applicable route. Active omega-3 acid ethyl esters (LOVAZA;OMACOR) 1 gram capsule Take 1 Capsule by mouth. 06/13/2022 Active turmeric-g.tea-ptero stil-brocc 464-348-05-30 mg cap Take by mouth. 06/13/2022 Active [...] Description 04/02/2024 10:00 AM CDT Office Visit [facility] [address] [place] [address] Marc Feliz AuD Hearing Aid (Consultation) 04/02/2024 9:00 AM CDT Office Visit [facility] [address] [place] [address] Marc Feliz AuD Hearing Problem 04/02/2024 Travel [...] 12:12 PM 12/01/2007 12:17 PM Care Teams District Plant Superintendent Relationship Specialty Start Date End Date None . PCP - General 03/20/23 Autumn Escobedo AuD Audiology 08/15/12
--- OUTSIDE RECORDS SUMMARY | 2024-06-07 10:40 | XMS_ITS | Referral Summary ---
Author Organization [facility] Address [address] [place] [address] Phone Care Team Providers Care Road Monkey Name Role Phone Harini Scott MD Primary Care Provider [phone] Provider, Generic External Data Unavailable Unavailable Allergies No known active allergies Medications Medication Sig Dispensed Refills Start Date End Date Status FISH OIL-CANOLA OIL-VIT D3 PO Active fluorouracil (Efudex) 5 % cream 02/18/2021 Active Glucosamine HCl (GLUCOSAMINE PO) Take 1 capsule by mouth 1 (one) time each day. Active calcium carbonate-vitamin D 600-200 MG-UNIT tablet Take by mouth. Active Multiple Vitamins-Minerals (lyhiavkd-licahxf-eqp n-lutein) tablet Take by mouth in the [...] TWICE A DAY 10/24/2023 Active HYDROcodone-acetamino phen ([place]) 5-325 MG tablet 09/15/2023 Active zolpidem (Ambien) [...] or relatives? Once a week 11/21/2023 Attends Episcopal Services Not on file 11/21 Do you belong to any clubs o r organizations such as yazdanism groups, unions, fraternal or athletic groups, or [...] Recorded Patient Health Questionnaire-2 Score 4 11/21/2023 [facility] [place] [facility] Occupat ional Health - Occupational Stress [...] 156.2 cm (5' 1.5) 11/21/2023 8:50 AM [facility] w/ shoes Body Mass Index 18.77 11/21/2023 8:50 AM [facility] Plan of Treatment Not on file Procedures Procedure Name Priority Date/Time Associated Diagnosis Comments DEXA BONE DENSITY 10/28/2022 2:2 6 PM [facility] HEPATITIS C ANTIBODY Routine 10/27/2021 11:05 AM [facility] Need for hepatitis C screening test from Last 3 Months or Most Recently Relevant to Health Maintenance Results * DEXA BONE DENSITY (10/28/2022 2:26 PM [facility]) Anatomical Region Laterality Modality Body Radiographic Nakia ging [facility] IMG DXA PRO CEDURES * Hepatitis C antibody (10/27/2021 11:05 AM [facility]) Hepatitis C Ab Nonreactive NON-REACT TJ 10/27/2021 3:30 PM [facility] Blood Venous blood specimen / Unknown Venipuncture / Unknown 10/27/2021 11:05 AM [facility] 10/27/2021 11:05 AM [facility] Narrative [facility] - 10/27/2021 3:30 PM [facility] REACTIVE: Presumptive evidence of antibodies to HCV; follow CDC recommendations for supplemental testing. GRAYZONE: Antibodies to HCV may or may not be present. Another specimen should be obtained from the individual for further testing. NONREACTIVE: Antibodies to HCV not detected; does not exclude early acute HCV infection. Harini Scott MD LAB BLOOD ORDERABLES [facility] [address] [place] [address] from Last 3 Months or Most Recently Relevant to Health Maintenance Care Teams Road Monkey Relationship Specialty Start Date End Date Harini Scott MD [address] [place] [address] PCP - General 11/20/20 Provider, Generic External Data 10/27/21
--- OUTSIDE RECORDS SUMMARY | 2024-06-07 10:40 | XMS_ITS | Clinical Summary ---
Author Organization [facility] Address [address] [place] [address] Phone Care Team Providers Care Interior Design Project Manager Name Role Phone Harini Scott MD Primary Care Provider [phone] Provider, Generic External Data Unavailable Unavailable Allergies No known active allergies Medications Medication Sig Dispensed Refills Start Date End Date Status FISH OIL-CANOLA OIL-VIT D3 PO Active fluorouracil (Efudex) 5 % cream 02/18/2021 Active Glucosamine HCl (GLUCOSAMINE PO) Take 1 capsule by mouth 1 (one) time each day. Active calcium carbonate-vitamin D 600-200 MG-UNIT tablet Take by mouth. Active Multiple Vitamins-Minerals (vskbhepn-npsxlcy-tmj n-lutein) tablet Take by mouth in the [...] TWICE A DAY 10/24/2023 Active HYDROcodone-acetamino phen ([place]) 5-325 MG tablet 09/15/2023 Active zolpidem (Ambien) [...] or relatives? Once a week 11/21/2023 Attends Anabaptist Services Not on file 11/21 Do you belong to any clubs o r organizations such as nondenominational groups, unions, fraternal or athletic groups, or [...] Recorded Patient Health Questionnaire-2 Score 4 11/21/2023 [facility] [place] of Occupat ional Health - Occupational Stress [...] place to sleep or slept in a prison (including now)? No 11/21/2023 Sex and Gender [...] - 1-dose 60+ series) 2005 COVID-19 Vaccine (2022-24 season) 2023 07/31/2022, 02/22/2022, 01/26/2021, Additional history exists Influenza Vaccine (#1) 2024 2, 08/20/2021, 08/13/2020, Additional history exists Bone Density [...] 06/27/2018, 06/18/2015, 08/09/2010 Zoster Vaccine Discontinued 08/01/2019, 08/0 06/2018, 11/21/2016 Hepatitis C Screening Completed 10/27/2021 HIB [...] DEXA BONE DENSITY 10/28/2022 2:2 6 PM [facility] HEPATITIS C ANTIBODY Routine 10/27/2021 11:05 AM [facility] Need for hepatitis C screening test from Last 3 Months or Most Recently Relevant to Health Maintenance Results * DEXA BONE DENSITY (10/28/2022 2:26 PM [facility]) Anatomical Region Laterality Modality Body Radiographic Nakia ging [facility] IMG DXA PRO CEDURES * Hepatitis C antibody (10/27/2021 11:05 AM [facility]) Hepatitis C Ab Nonreactive NON-REACT TJ 10/27/2021 3:30 PM [facility] Blood Venous blood specimen / Unknown Venipuncture / Unknown 10/27/2021 11:05 AM [facility] 10/27/2021 11:05 AM [facility] Narrative [facility] - 10/27/2021 3:30 PM [facility] REACTIVE: Presumptive evidence of antibodies to HCV; follow CDC recommendations for supplemental testing. GRAYZONE: Antibodies to HCV may or may not be present. Another specimen should be obtained from the individual for further testing. NONREACTIVE: Antibodies to HCV not detected; does not exclude early acute HCV infection. Harini Scott MD LAB BLOOD ORDERABLES [facility] [address] [place] [address] from Last 3 Months or Most Recently Relevant to Health Maintenance Care Teams Interior Design Project Manager Relationship Specialty Start Date End Date Harini Scott MD [address] [place] [address] PCP - General 11/20/20 Provider, Generic External Data 10/27/21
--- OUTSIDE RECORDS SUMMARY | 2024-06-07 10:40 | XMS_ITS | Encounter Summary ---
Author Organization [facility] Address [address] [place] [address] Phone Care Team Providers Care Horticulture/Floriculture Teacher Name Role Phone Harini Scott MD Primary Care Provider [phone] Provider, Generic External Data Unavailable Unavailable Reason for Visit * Reason Comments Med Refill Encounter Details Date Type Department Care Team (Late st Contact Info) Description 03/21/2023 Refill Harini Scott MD [address] [place] [address] Harini Scott MD [address] [place] [address] Acute left-sided low back pain [...] sciatica documented in this encounter Care Teams Horticulture/Floriculture Teacher Relationship Specialty Start Date End Date Harini Scott MD [address] [facility] [address] [place] [address] PCP - General 11/20/20 Provider, Generic External Data 10/27/21 documented as of this encounter
--- OUTSIDE RECORDS SUMMARY | 2024-06-07 10:40 | XMS_ITS | Continuity of Care Document ---
Author Organization [facility] Address [address] [place] [address] Phone Care Team Providers Care Meat Passer Name Role Phone Federico Holley Unavailable Unavailable [...] - Active Procedures Procedure Date Office/outpatient Visit, [facility] Advance Directives Directive Yes / No Effective Date File Name No Information Encounters Encounter Description Practice Location Reason(s) For Visit Diagnoses Date Provider Providers Copied on Encounter [facility], [address], [place], [place], [id number], [place] tel:[phone] ROBERTA Azar Primary generalized (osteo)arthritisPo lyneuropathy, unspecified [address]allero[address], [place], [place], [id number], [place]. tel:[phone] Office/outpa tient Visit, [facility], [address], [place], [place], [id number], [place] tel:[phone] ROBERTA Azar Neuropathy (chief complaint) NeuropathyPrimary osteoarthritis involving multiple joints [address] Caballero. [address], [place], [place], [id number], [place]. tel:[phone] Referring Provider: Elva Levi , [address], [place], [address] . tel:[phone] Family History Family Member Type Diagnosis Age At Onset Father Problem (finding) gout Payers Payer name Insurance type Covered green party ID Authorpinky white(s) Medicare [id number] [place] PPO [id number] Social History Type Description Quantity Date Captured [...]
--- OUTSIDE RECORDS SUMMARY | 2024-06-07 10:41 | XMS_ITS | Clinical Summary ---
Author Organization [facility] Address [address] [place] [address] Care Team Providers Care Sap Payroll Consultant Name Role Phone Pcp, Pcp - No [...] Comments Blood Pressure 119/69 10/11/2011 5:43 PM [facility] Pulse 69 10/11/2011 5:43 PM [facility] Advance Directives For more information, please contact: [phone] * Full Code (Latest Code Status on File) Date Activated Date Inactivated Comments 10/11/2011 7:44 AM 10/11/2011 10:08 PM Care Teams Sap Payroll Consultant Relationship Specialty Start Date End Date Pcp, Pcp - MD Kitty PCP - General 10/10/11
--- OUTSIDE RECORDS SUMMARY | 2024-06-07 10:41 | XMS_ITS | Referral Summary ---
Author Organization [facility] Address [address] [place] [address] Care Team Providers Care Warehouse Examiner Name Role Phone Pcp, Pcp - No [...] Advance Directives For more information, please contact: [phone] * Full Code (Latest Code Status on File) Date Activated Date Inactivated Comments 10/11/2011 7:44 AM 10/11/2011 10:08 PM Care Teams Warehouse Examiner Relationship Specialty Start Date End Date Pcp Pcp - MD Kitty PCP - General 10/10/11
[2024-06-07 12:07] LABS: Vitamin D 25 Hydroxy* 50 ng/mL (30-80)
[2024-06-07 12:40] LABS: Vitamin B12* 193 pg/mL (243-894)
== END 2024-06-07 10:36 | disposition home or self-care (01) ==
PROVIDERS: PCP Family Medicine; Visit Provider Physician Assistant
DX: E55.9 Vitamin D deficiency, unspecified (principal); R41.3 Other amnesia
CPT/HCPCS: 36415; 82306; 82607; 83921; 84182; 84443; 86255; 86341

== ENCOUNTER 2024-07-16 12:50 | Outpatient (RCR) | payer MEDICARE, BC, SELFPAY ==
--- NOTE | 2024-03-22 13:59 | URNOTE ---
Received request for prior authorization for Reclast ([id number]). Pt has medicare primary, prior authorization is not required as services are based on medical necessity and follow medicare guidelines.
[2024-07-16 13:25] VITALS: BP 121/68; PULSE 70; RESP 16; TEMP 36.8; O2SAT 97
[2024-07-16 13:40] LABS: Creatinine* 0.7 mg/dL (0.5-1.5); Est. Creatinine Clearance* 33.05; Estimated Glomerular Filt Rate 88 ml/min
[2024-07-16 13:41] LABS: Calcium* 9.5 mg/dL (8.4-10.6)
[2024-07-16] MEDS: 0.9 % SODIUM CHLORIDE 250 ml IV (13:55)
[2024-07-16] MEDS: SODIUM CHLORIDE 0.9 % (FLUSH) 10 ML SYRINGE IVF (13:55)
== END 2025-01-12 23:59 | disposition home or self-care (01) ==
LOC: CCIC 12:50
PROVIDERS: PCP Family Medicine; Referring Provider Family Medicine; Visit Provider Family Medicine
DX: M81.0 Age-related osteoporosis without current pathological fracture (principal)
CPT/HCPCS: 36415; 82310; 82565; 96374; J3489; J7050

== ENCOUNTER 2024-08-29 11:55 | Outpatient (CLI) | payer MEDICARE, BC, SELFPAY ==
--- OUTSIDE RECORDS SUMMARY | 2024-08-29 12:00 | XMS_ITS | Clinical Summary ---
Author Organization [facility] Address [place], [place] [address] Care Team Providers Care Smoking Pipe Coater Name Role Phone Autumn Escobedo Saad AuD Unavailable [phone] None Primary Care Provider Unavailabl e Allergies [...] 1,000 units by mouth. 06/13/2022 Active omega 3-klw-ccu-fish oil (Fish OiL) 100-160-1,000 mg cap by Not Applicable route. Active omega-3 acid ethyl esters (LOVAZA;OMACOR) 1 gram capsule Take 1 Capsule by mouth. 06/13/2022 Active turmeric-g.tea-ptero stil-brocc 465-470-10-30 mg cap Take by mouth. 06/13/2022 Active [...] - PCV) 2010 Tetanus booster 06/21/2016 06/21/2006 RSV vaccine for adults or (1 - 1-dose 75+ series) 2020 COVID-19 vaccine series ( season) 2024 02/27/2024, 08/24/2023, 03/26/2023, Additional history exists Influenza for age 65+ 07/21/2024 Tdap Completed 06/21/2006 Advance Directives * Full Code (Latest Code Status on File) Date Activated Date Inactivated Comments 11/30/2007 12:12 PM 12/01/2007 12:17 PM Care Teams Smoking Pipe Coater Relationship Specialty Start Date End Date None . PCP - General 03/20/23 Autumn Escobedo AuD Audiology 08/15/12
--- OUTSIDE RECORDS SUMMARY | 2024-08-29 12:00 | XMS_ITS | Referral Summary ---
Author Organization [facility] Address [address] [place] [address] Care Team Providers Care Complaint Analyst Name Role Phone Pcp, Pcp - [...] Advance Directives For more information, please contact: [phone] * Full Code (Latest Code Status on File) Date Activated Date Inactivated Comments 10/11/2011 7:44 AM 10/11/2011 10:08 PM Care Teams Complaint Analyst Relationship Specialty Start Date End Date Pcp Pcp - MD Kitty PCP - General 10/10/11
--- OUTSIDE RECORDS SUMMARY | 2024-08-29 12:00 | XMS_ITS | Referral Summary ---
Author Organization [facility] Address [address] [place] [address] Phone Care Team Providers Care Lead Qa Analyst Name Role Phone Harini Scott MD Primary Care Provider [phone] Provider, Generic External Data Unavailable Unavailable Allergies No known active allergies Medications Medication Sig Dispensed Refills Start Date End Date Status FISH OIL-CANOLA OIL-VIT D3 PO Active fluorouracil (Efudex) 5 % cream 02/18/2021 Active Glucosamine HCl (GLUCOSAMINE PO) Take 1 capsule by mouth 1 (one) time each day. Active calcium carbonate-vitamin D 600-200 MG-UNIT tablet Take by mouth. Active Multiple Vitamins-Minerals (aouegcoq-oxbnjwp-syj n-lutein) tablet Take by mouth in the [...] TWICE A DAY 10/24/2023 Active HYDROcodone-acetamino phen ([place]) 5-325 MG tablet 09/15/2023 Active zolpidem (Ambien) [...] cell carcinoma 11/22/2019 Insomnia 11/22/2019 Osteoporosis 11/22/2019 Overview (11/24/2021): Annotation - 22Nov2019: TOOK FOSAMAX IN PAST [...] or relatives? Once a week 11/21/2023 Attends Religion Services Not on file 11/21 Do you [...] Recorded Patient Health Questionnaire-2 Score 4 11/21/2023 [facility] [place] of Occupat ional Health - Occupational Stress [...] 45.8 kg (101 lb) 11/21/2023 8:50 AM [facility] Height 156.2 cm (5' 1.5) 11/21/2023 8:50 AM [facility] w/ shoes Body Mass Index 18.77 11/21/2023 8:50 AM [facility] Plan of Treatment Not on file Procedures Procedure Name Priority Date/Time Associated Diagnosis Comments DEXA BONE DENSITY 10/28/2022 2:2 6 PM [facility] HEPATITIS C ANTIBODY Routine 10/27/2021 11:05 AM [facility] Need for hepatitis C screening test MAMMOGRAM SCREENING BILATERAL Routine 08/20/2019 9:53 AM [facility] from Last 3 Months or Most Recently Relevant to Health Maintenance Results * DEXA BONE DENSITY (10/28/2022 2:26 PM [facility]) Anatomical Region Laterality Modality Body Radiographic Nkaia ging [facility] IMG DXA PRO CEDURES * Hepatitis C antibody (10/27/2021 11:05 AM [facility]) Hepatitis C Ab Nonreactive NON-REACT TJ 10/27/2021 3:30 PM [facility] Blood Venous blood specimen / Unknown Venipuncture / Unknown 10/27/2021 11:05 AM [facility] 10/27/2021 11:05 AM [facility] Narrative [facility] - 10/27/2021 3:30 PM [facility] REACTIVE: Presumptive evidence of antibodies to HCV; follow CDC recommendations for supplemental testing. GRAYZONE: Antibodies to HCV may or may not be present. Another specimen should be obtained from the individual for further testing. NONREACTIVE: Antibodies to HCV not detected; does not exclude early acute HCV infection. Harini Scott MD LAB BLOOD ORDERABLES [facility] [address] [place] [address] * MAMMOGRAM SCREENING BILATERAL (08/20/2019 9:53 AM [facility]) Anatomical Region Laterality Modality Bilateral Mammography 08/20/2019 9:53 AM [facility] Narrative 08/20/2019 9:53 AM [facility] Normal Procedure Note Conversion, Allscripts - 01/08/2021 Normal Allscripts Conversion IMG BI PROCEDURES from Last 3 Months or Most Recently Relevant to Health Maintenance Care Teams Lead Qa Analyst Relationship Specialty Start Date End Date Harini Scott MD [address] [place] [id number] PCP - General 11/20/20 Provider, Generic External Data 10/27/21
--- OUTSIDE RECORDS SUMMARY | 2024-08-29 12:00 | XMS_ITS | Clinical Summary ---
Author Organization [facility] Address [address] [place] [address] Care Team Providers Care Ux Interaction Designer Name Role Phone Pcp, Pcp - No [...] Comments Blood Pressure 119/69 10/11/2011 5:43 PM [facility] Pulse 69 10/11/2011 5:43 PM [facility] Temperature 36.5 ??C (97.7 ??F) [...] Advance Directives For more information, please contact: [phone] * Full Code (Latest Code Status on File) Date Activated Date Inactivated Comments 10/11/2011 7:44 AM 10/11/2011 10:08 PM Care Teams Ux Interaction Designer Relationship Specialty Start Date End Date Pcp, Pcp - MD Kitty PCP - General 10/10/11
--- OUTSIDE RECORDS SUMMARY | 2024-08-29 12:00 | XMS_ITS | Clinical Summary ---
Author Organization [facility] Address [address] [place] [address] Phone Care Team Providers Care Glove Cutter Name Role Phone Harini Scott MD Primary Care Provider [phone] Provider, Generic External Data Unavailable Unavailable Allergies No known active allergies Medications Medication Sig Dispensed Refills Start Date End Date Status FISH OIL-CANOLA OIL-VIT D3 PO Active fluorouracil (Efudex) 5 % cream 02/18/2021 Active Glucosamine HCl (GLUCOSAMINE PO) Take 1 capsule by mouth 1 (one) time each day. Active calcium carbonate-vitamin D 600-200 MG-UNIT tablet Take by mouth. Active Multiple Vitamins-Minerals (roosdhrq-vubuwoh-nxr n-lutein) tablet Take by mouth in the [...] TWICE A DAY 10/24/2023 Active HYDROcodone-acetamino phen ([place]) 5-325 MG tablet 09/15/2023 Active zolpidem (Ambien) [...] or relatives? Once a week 11/21/2023 Attends Mormonism Services Not on file 11/21 Do you belong to any clubs o r organizations such as taoism groups, unions, fraternal or athletic groups, or [...] Recorded Patient Health Questionnaire-2 Score 4 11/21/2023 [place] of Occupat ional Health - Occupational Stress [...] Series (1 - 1-dose 60+ series) 2005 Mammogram 08/20/2020 08/20/2019 COVID-19 Vaccine ( season) 2024 07/31/2022, 02/22/2022, 01/26/2021, Additional history exists Influenza Vaccine (#1) 2024 , 08/20/2021, 08/13/2020, Additional history exists Bone Density [...] patient's age to complete this topic RSV Infant Series Aged Out No longer eligible based on patient's age to complete this topic Rotavirus Vaccines Aged Out No longer eligible based on patient's age to complete this topic Procedures Procedure Name Priority Date/Time Associated Diagnosis Comments DEXA BONE DENSITY 10/28/2022 2:[address] [facility] HEPATITIS C ANTIBODY Routine 10/27/2021 11:05 AM [facility] Need for hepatitis C screening test MAMMOGRAM SCREENING BILATERAL Routine 08/20/2019 9:[address] [facility] from Last 3 Months or Most Recently Relevant to Health Maintenance Results * DEXA BONE DENSITY (10/28/2022 2:[address] [facility]) Anatomical Region Laterality Modality Body Radiographic Nakia ging [facility] IMG DXA PRO CEDURES * Hepatitis C antibody (10/27/2021 11:[address] [facility]) Hepatitis C Ab Nonreactive NON-REACT TJ 10/27/2021 3:30 PM [facility] Blood Venous blood specimen / Unknown Venipuncture / Unknown 10/27/2021 11:05 AM [facility] 10/27/2021 11:[address] [facility] Narrative [facility] - 10/27/2021 3:[address] [facility] REACTIVE: Presumptive evidence of antibodies to HCV; follow CDC recommendations for supplemental testing. GRAYZONE: Antibodies to HCV may or may not be present. Another specimen should be obtained from the individual for further testing. NONREACTIVE: Antibodies to HCV not detected; does not exclude early acute HCV infection. Harini Scott MD LAB BLOOD ORDERABLES [facility] [address] [place] [address] * MAMMOGRAM SCREENING BILATERAL (08/20/2019 9:[address] [facility]) Anatomical Region Laterality Modality Bilateral Mammography 08/20/2019 9:[address] [facility] Narrative 08/20/2019 9:[address] [facility] Normal Procedure Note Conversion, Allscripts - 01/08/2021 Normal Allscripts Conversion IMG BI PROCEDURES from Last 3 Months or Most Recently Relevant to Health Maintenance Care Teams Glove Cutter Relationship Specialty Start Date End Date Harini Scott MD [address] [place] [address] PCP - General 11/20/20 Provider, Generic External Data 10/27/21
--- OUTSIDE RECORDS SUMMARY | 2024-08-29 12:00 | XMS_ITS | Encounter Summary ---
Author Organization [facility] Address [address] [place] [address] Phone Care Team Providers Care Locomotive Supervisor Name Role Phone Harini Scott MD Primary Care Provider [phone] Provider, Generic External Data Unavailable Unavailable Reason for Visit * Reason Comments Med Refill Encounter Details Date Type Department Care Team (Late st Contact Info) Description 03/21/2023 Refill Harini Scott MD [address] [place] [address] Harini Scott MD [address] [place] [address] Acute left-sided low back pain [...] place to sleep or slept in a intermediate (including now)? No 10/27/2021 Sex and Gender Information Value Date Recorded Sex Assigned at Not on file Gender Identity Not on file Sexual Orientation Not on file documented as of this encounter Plan of Treatment Not on file documented as of this encounter Visit Diagnoses Diagnosis Acute left-sided low back pain without sciatica documented in this encounter Care Teams Locomotive Supervisor Relationship Specialty Start Date End Date Harini Scott MD [address] [facility] [address] [place] [address] PCP - General 11/20/20 Provider, Generic External Data 10/27/21 documented as of this encounter
== END 2024-08-29 11:56 | disposition home or self-care (01) ==
PROVIDERS: PCP Family Medicine; Visit Provider Psychiatry & Neurology Neurology
DX: G30.0 Alzheimer's disease with early onset (principal); F02.A0 Dementia in other diseases classified elsewhere, mild, without behavioral disturbance, psychotic disturbance, mood disturbance, and anxiety
CPT/HCPCS: 36415; 83520

== ENCOUNTER 2024-12-25 18:27 | Emergency (ER) | payer MEDICARE, BC, SELFPAY ==
[2024-12-25] VITALS (13 sets, daily range): BP systolic 108–140; BP diastolic 48–71; PULSE 63–79; RESP 20; TEMP 36.7; O2SAT 95–100; BMI 18.7
--- OUTSIDE RECORDS SUMMARY | 2024-12-25 18:29 | XMS_ITS | Clinical Summary ---
Author Organization [facility] Address [address] [place] [address] Care Team Providers Care Boat Buffer Plastic Name Role Phone Ed Walsh MD Primary Care Provider [phone] Encounters Date Type Department Care Team Description 11/24/2024 Telephone [facility] [address] [place] [address] Piedad Lemon, consumer safety inspector Request 11/24/2024 Telephone [facility] [address] [place] [phone] Piedad Lemon, RN Covid 19 Testing from Last 3 Months Social History Tobacco Use Types Packs/Day Years Used Date Smoking Tobacco: Never Assessed Comments Unknown Sex and Gender Information Value Date Recorded Sex Assigned at Not on file Legal Sex Female 3:30 AM DIP TANKER Gender Identity Not on file Sexual Orientation Not on file Plan of Treatment Not on file Insurance [facility] [employer] MEDICARE FORMERLY [facility] MEDICARE Care Teams Boat Buffer Plastic Relationship Specialty Start Date End Date Ed Walsh MD [facility] [address] [place] [address] PCP - General Family Medicine 09/20/24
--- OUTSIDE RECORDS SUMMARY | 2024-12-25 18:30 | XMS_ITS | Data Portability ---
Author Organization [facility], [facility] Address [address] [place] [address] Care Team Providers Care Shoemaking Finisher Name Role Phone SALONI DURANT Primary Care Provider Assessment No assessment recorded. Plan of Treatment Reminders Order Date Submit Date Provider Last Modified By Organization Details Last Modified Time Details Appointments None recorded. Lab None recorded. Referral None recorded. Procedures None recorded. Surgeries total hip arthroplas ty, anterior approach (SURG) 2023 024 [email or web address] Not available 12:49:37 Imaging XR, hip + pelvis, unilateral , 2 or 3 view 2023 024 [id number] In-Office Order, Internal Use Only DO Not Attach Compendium DO Not Attach Compendium, Do Not Delete/merge, [id number] 17:23:49 Medication Orders None recorded. Patient TargetsNo targets recorded. Patient InstructionsNo instructions recorded. Reason for Referral None Reported. Results Created Date Observation Date Name Description Value Unit Range Abnormal Flag Note LastModifiedBy Organization Detail LastModifiedTime 12/25/19 24 XR, hip + pelvi s, unila teral , 2 or 3 view No observ ation record ed. [email or web address] In-Office Order Internal Use Only DO Not Attach Compendium DO Not Attach Compendium, Do Not Delete/merge, [id number] 12/28/2023 17:23:48 Result Notes None recorded. Procedures Surgical History Date Name Laterality Status Provider Name and Address Organization Details Recorded Time Joint Replacement completed Kristin Aguilar [facility] 12/27/2023 16:39:40 Back Surgery completed Kristin Aguilar [facility] 12/27/2023 16:39:40 Other Surgeries completed Kristin Velasco [facility] 12/27/2023 16:39:40 Imaging Results Imaging Date Name Status LastModified by Organiz ation Details LastModified Time 12/25/2023 XR, hip + pelvis, unilateral , 2 or 3 view completed [email or web address] In-Office Order Internal Use Only DO Not Attach Compendium DO Not Attach Compendium, Do Not Delete/merge, [id number] 12/28/2023 17:23:48 Procedure Notes None recorded. Medical Equipment None Reported. Allergies No known drug allergies Vitals Date Recorded Body height Body mass index (BMI) Body weight Heart rate Systolic blood pressure Diastolic blood pressure Provider Name and Address Organization Details Last Updated DateTime 154.94 cm 18.9 kg/m2 48322.2 4 g 62 /min 122 mm[Hg] 77 mm[Hg] Wendy Wilson [facility] 16:43:21 Social History Question Answer Notes LastModified by Organizat ion Details LastModified Time Tobacco Smoking Status Never Smoker Wendy Wilson [facility] 12/27/2023 16:43:44 Do You Have An Advance Directive? Yes Per Patient Information not available 12/27/2023 If Pulse Oximetry Was Done: Is The Patient's Sp02 Less Than 93% On Room Air? No [email or web address] Information not available 12/27/2023 What Was The Date Of Your Most Recent Tobacco Screening? 12/27/2023 Information not available 12/27/2023 What Is Your Relationship Status? [email or web address] Information not available 12/27/2023 Do You Or Have You Ever Used Any Other Forms Of Tobacco Or Nicotine? No Information not available 12/27/2023 Sex: Unknown Functional Status None recorded. Mental Status None recorded. Family History Nothing Reported. Medical History Condition Response Hearing Loss Y Gynecological HistoryNo gynecological history recorded. Obstetrics History GPAL:G 0 P 0 0 0 0 Past Encounters Encounter ID Performer Location Encounter Start Date Encounter Closed Date Diagnosis/Indication Diagnosis SNOMED-CT Code Diagnosis ICD10 Code Diagnosis Note [id number] José Francis MD [facility] [address] [address] 12/27/2023 16:22:23 12/27/2023 17:07:25 Pain of left hip joint 1252429650 07435 M25.552 arthritis of the left hip ; she is bone on boneshe will require a SERBIAN had a long discussion with the patient regarding hip replacemen t surgery. I explained my surgical approach which is a direct anterior approach. I explained to the patient they can expect numbness along the anterolate ral thigh but no motor deficits. I explained the numbness usually resolves but might be permanent. I explained the other complicati ons of surgery including, infection, dislocatio n, fracture, leg length inequality , blood clots, bleeding requiring a transfusio n, other nerve injuries with resulting weakness , ongoing pain requiring more surgery, medical complicati ons such as heart attack, stroke, or even . The patient understand s these potential complicati ons and wishes to proceed with the surgery as we discussed in the office. Health Concerns Section Related Observation LastModified by Organization Detai ls LastModified Time None Recorded Concern Status LastModified by Organization Details LastModified Time None Recorded Advance Directives Directive Y: per patient Payers Encounter Date Sequence Insurance Name Policy Number Policy Rashid Covered Member ID Rashid Member ID Guarantor Name 12/27/2023 2 [place] COST Kylie Joon Tabor [id number] Kylie Tabor Notes Date Note Type Note Provider Name and Address Organization Details Recorded Time 12/27/2023 text/html Hip(s)Reported bypatient.Locatio n:left; groin; thigh; buttocks Quality:aching; stabbing; dull; deep; occasional; frequent; worsening Severity:severe Duration:months; weeks; continuous since onset Timing:chronic; gradual; recurrent Context:cannot identify; overuse Alleviating Factors:limited weight bearing; NSAIDs; cortisone injection Aggravating Factors:standing; walking; bending/squatting ; weightbearing; changing clothes; getting out of bed; upstairs Associated Symptoms:no weakness; no tingling; no catching/locking; no popping/clicking; no radiation down leg Previous Surgery:none; s/p right ANOOP several years ago which she feels made her right leg long Prior Imaging:x ray Previous Injections:none Previous PT:helped a little Work Related:no Working:no José Francis MD [address], [place], [address], [facility] - [facility] 12/28/2023 22:35:50 OBGyn Episode No OBEpisode recorded.
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
--- OUTSIDE RECORDS SUMMARY | 2024-12-25 18:30 | XMS_ITS | Referral Summary ---
Author Organization [facility] Address [address] [place] [address] Care Team Providers Care Switch Cleaner Name Role Phone Ed Walsh MD Primary Care Provider [phone] Encounters Date Type Department Care Team Description 11/24/[address] [facility] [address] [place] [address] Piedad Lemon, wind instrument repairer Request 11/24/[address] [facility] [address] [place] [address] Piedad Lemon, RN Covid 19 Testing from Last 3 Months Social History Tobacco Use Types Packs/Day Years Used Date Smoking Tobacco: Never Assessed Comments Unknown Sex and Gender Information Value Date Recorded Sex Assigned at Not on file Legal Sex Female 3:30 AM INSURANCE CLAIMS ASSISTANT Gender Identity Not on file Sexual Orientation Not on file Plan of Treatment Not on file Insurance [facility] BLUE MEDICARE [facility] MEDICARE Care Teams Switch Cleaner Relationship Specialty Start Date End Date Ed Walsh MD [facility] [address] [place] [address] PCP - General Family Medicine 09/20/24
--- OUTSIDE RECORDS SUMMARY | 2024-12-25 18:30 | XMS_ITS | Clinical Summary ---
Author Organization [facility] Address [place], [place] [address] Care Team Providers Care Return Agent Name Role Phone Autumn Raphael Unavailable [phone] None Primary Care Provider Unavailabl e Allergies No known active allergies Medications ZOLOFT ORAL 150 mg 0 Active AMBIEN ORAL 3 mg at bedtime 0 Ac tive MEDICATION ORDER COMPOSER apap/codeine 30mg daily 0 Active TRAZODONE 150 MG TAB daily 0 Active CENTRUM SILVER ORAL daily 0 Active CALCARB 600 WITH VITAMIN D ORAL None Entered 0 Active DIAZEPAM 5 MG TAB 5 mg Oral EVERY 6 HOURS NEEDED 30 0 8 Active escitalopram oxalate (LEXAPRO) 10 mg tablet 3 Active traZODone (DESYREL) 100 mg tablet 3 Active ALPRAZolam (XANAX) 0.5 mg tablet Take 0.5 mg by mouth once daily if needed. 1 Active alendronate (FOSAMAX) 70 mg tablet 3 Active calcium carbonate (CALTRATE) 600 mg calcium (1,500 mg) tablet Take by mouth. 2 Active Cholecalciferol , Vitamin D3, 400 unit capsule Take 1,000 units by mouth. 2 Active omega 6-rgq-oyu-fish oil (Fish OiL) 100-160-1,000 mg cap by Not Applicable route. Active omega-3 acid ethyl esters (LOVAZA;OMACOR) 1 gram capsule Take 1 Capsule by mouth. 2 Active turmeric-g.tea- pterostil-brocc 186-430-19-30 mg cap Take by mouth. 2 Active hydrocortisone 2.5% cream 2 Active valACYclovir (VALTREX) 1 gram tablet one time if needed. 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 Gender Identity Not on file Sexual Orientation Not on file Obstetrics History Last Filed Vital Signs Vital Sign Reading Time Taken Comments Blood Pressure 102/64 08/24/2016 1:52 PM CDT Pulse 60 08/24/2016 1:52 PM CDT Temperature 36.4 C (97.5 F) 04/09/2014 2:29 PM CDT Respiratory Rate 14 [...] C screening for ag e 18-79 1963 Pneumococcal series for age 50+ (1 of 1 - PCV) 1995 Zoster (shingles) series for age 50+ (1 of 2) 1995 DEXA/DXA scan for age 65+ 2010 Medicare Wellness for age 65+ 2010 Tetanus booster 06/21/2016 06/21/2006 RSV vaccine for adults or (1 - 1-dose 75+ series) 2020 COVID-19 vaccine series ( season) 2024 02/27/2024, 08/24/2023, 03/26/2023, Additional history exists Influenza for age 65+ 07/21/2024 Tdap Completed 06/21/2006 Insurance [employer]UE [place] [place] BLUE MR PB ONLY Advance Directives * Full Code (Latest Code Status on File) Date Activated Date Inactivated Comments 11/30/2007 12:12 PM 12/01/2007 12:17 PM Care Teams Return Agent Relationship Specialty Start Date End Date None . PCP - General 03/20/23 Autumn Raphael [facility] Audiology 08/15/12
--- OUTSIDE RECORDS SUMMARY | 2024-12-25 18:30 | XMS_ITS | Encounter Summary ---
Author Organization [facility] Address [address] [place] [address] Care Team Providers Care Golf Tournament Consultant Name Role Phone Ed Walsh MD Primary Care Provider [phone] Reason for Visit * Reason Onset Date Comments Covid 19 Testing 11/24/2024 Encounter Details Date Type Department Care Team (Late st Contact Info) Description 11/24/2024 Telephone [facility] [address] [place] [address] Piedad Lemon, RN Covid 19 Testing Social History Tobacco Use Types Packs/Day Years Used Date Smoking Tobacco: Never Assessed Comments Unknown Sex and Gender Information Value Date Recorded Sex Assigned at Not on file Legal Sex 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 She stated she did not know where to go to get a test so talked about urgent care or getting a home test to test at home. She is going to go and get a test. And will call back. Clarisse Lemon RN [facility] Nurse Advisor 6:05 AM 11/24/2024 PRESS OPERATOR documented in this encounter Plan of Treatment Not on file documented as of this encounter Visit Diagnoses Not on filedocumented in this encounter Care Teams Golf Tournament Consultant Relationship Specialty Start Date End Date Ed Walsh MD [facility] [address] [address] PCP - General Family Medicine 09/20/24 documented as of this encounter
--- OUTSIDE RECORDS SUMMARY | 2024-12-25 18:30 | XMS_ITS | Encounter Summary ---
Author Organization [facility] Address [address] [place] [address] Care Team Providers Care Engineering Librarian Name Role Phone Ed Walsh MD Primary Care Provider [phone] Reason for Visit * Reason Onset Date Comments Medication Request 11/24/2024 Encounter Details Date Type Department Care Team (Late st Contact Info) Description 11/24/2024 Telephone [facility] [address] [place] [address] Piedad eLmon, junior copywriter Request Social History Tobacco Use Types Packs/Day Years Used Date Smoking Tobacco: Never Assessed Comments Unknown Sex and Gender Information Value Date Recorded Sex Assigned at Not on file Legal Sex Female 3:30 AM MANAGER ER Gender Identity Not on file Sexual Orientation Not on file documented as of this encounter Miscellaneous Notes * Telephone Encounter - Roya Gerardo RN - 11/24/2024 9:21 AM CST Pt's spouse returning missed call back, verbal consent given. Relayed to pt's spouse, Rx will be sent to [facility] in [place] by novelty balloon assembler and packer provider. Check with pharmacy. Spouse will call and check with [facility]. Roberto Gerardo RN, BSN 11/24/2024 at 9:23 AM [facility] GER ER * Telephone Encounter - Piedad Lemon RN - 11/24/2024 7:53 AM MANAGER ER Telephone call calling to report she tested for covid and tested positive stuffy nose fatigue ,low grade, feeling poorly. She started with symptoms on 11/22/2023. Paged dr Estes from [place] and she was going to prescribe paxlovid to the [facility] in [place]. She will call the patient if she needs to holdany meds while she is on Paxlovid. Clarisse Lemon RN [facility] Nurse Advisor 8:14 AM 11/24/2024 GER ER documented in this encounter Plan of Treatment Not on file documented as of this encounter Visit Diagnoses Not on filedocumented in this encounter Care Teams Engineering Librarian Relationship Specialty Start Date End Date Ed Walsh MD [facility] [address]. [place] [address] PCP - General Family Medicine 09/20/24 documented as of this encounter
--- NOTE | 2024-12-25 18:57 | ED.GENADULT ---
HPI - General Adult General Time Seen by Provider: 19:00 Date Seen: 12/25/24 Chief complaint: Neuro Symptoms/Altered Deficit Stated complaint: possible stroke Time Seen by Provider: 12/25/24 18:57 Source: patient, family and RN notes reviewed Mode of arrival: ambulatory Limitations: no limitations History of Present Illness HPI narrative: This 79-year-old female was ambulatory into the ED with her . She has underlying Alzheimer's dimension was coming in with a severe headache and possible visual disturbances. Nursing staff follow protocol and had her go for a head CT immediately. At 7:00 p.m. I was called over to CT scan to visualize the CT, saw significant intraventricular hemorrhage on the right side. Asked radiology staff to send the images up to [facility], patient was brought back over to the ER so I could see her and [facility] was paged. The patient had sudden onset of headache weakness nausea and some visual changes which she reportedly was ?seen things?. At this time she states the vision is better. Her reports it seems like she could not get her eyes back towards the midline from the right side, did not seem to see things right in front of her. Her headache was maybe starting around 2:00 p.m. and originally was 10/10. She has been started on a medication that is injectable for dementia called jon through [facility]. She had an MRI after the 4th dose which did show some swelling which is a complication of this medicine reportedly. Her medicine has been on hold for maybe 3 weeks or so right now, she is scheduled to have another MRI next week on Monday. She had had a total of 4 injections, 1 every 2 weeks until they saw the swelling. The protocol was to do an MRI after the 4th dose. Side effects are reported to be brain bleeding and swelling. She takes an 81 mg aspirin daily but no other blood thinners. Related Data Home Medications ?Medication ?Instructions ?Recorded ?Confirmed cetirizine 10 mg tablet (Zyrtec) 10 mg PO DAILY 03/04/24 12/23/24 calcium carbonate 260 mg PO QDAY 07/03/24 12/23/24 aspirin 81 mg tablet,delayed 81 mg PO QDAY 07/04/24 12/23/24 release (Adult Low Dose Aspirin) fluticasone propionate 50 2 spray intranasal DAILY PRN 08/15/24 12/23/24 mcg/actuation nasal spray,suspension (Flonase Allergy Relief) Previous Rx's ?Medication ?Instructions ?Recorded cholecalciferol (vitamin D3) 25 1,000 unit PO DAILY #90 tabs 10/24/23 mcg (1,000 unit) tablet acetaminophen 500 mg capsule 500 - 1,000 mg (1 - 2 x 500 mg) PO 03/04/24 Q6H PRN #100 caps gabapentin 300 mg capsule 300 mg PO QHS #90 caps 10/09/24 sertraline 100 mg tablet 100 mg PO QDAY #90 tabs 10/09/24 Allergies Allergy/AdvReac Type Severity Reaction Status Date / Time pollen extracts Allergy Intermediate Verified 12/23/24 11:34 Review of Systems Status of ROS: Reports: 6 or more systems reviewed and unremarkable except as noted in History and below [facility] Medical History Alzheimer's dementia ?G30.9 - Alzheimer's disease, unspecified (ICD-10) ?F02.80 - Dementia in other diseases classified elsewhere, unspecified severity, without behavioral disturbance, psychotic disturbance, mood disturbance, and anxiety (ICD-10) Generalized anxiety disorder ?F41.1 - Generalized anxiety disorder (ICD-10) Major depression, recurrent ?F33.9 - Major depressive disorder, recurrent, unspecified (ICD-10) Bilateral cataracts ?H26.9 - Unspecified cataract (ICD-10) 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) ?M47.816 - Spondylosis without myelopathy or radiculopathy, lumbar region (ICD-10) Osteopenia (12/16/22) ?M85.80 - Other specified disorders of bone density and structure, unspecified site (ICD-10) Memory deficit (11/21/23) ?R41.3 - Other amnesia (ICD-10) Incontinence of feces (11/21/23) ?R15.9 - Full incontinence of feces (ICD-10) 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/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) ?Z85.89 - Personal history of malignant neoplasm of other organs and systems (ICD-10) History of Lyme disease (11/22/19) ?Z86.19 - Personal history of other infectious and parasitic diseases (ICD-10) History of COVID-19 (10/27/21) ?Z86.16 - Personal history of COVID-19 (ICD-10) Hearing aid worn (10/27/21) ?Z97.4 - Presence of external hearing-aid (ICD-10) Depression, major, 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) ?F32.4 - Major depressive disorder, single episode, in partial remission (ICD-10) Osteoporosis (11/22/19) ?M81.0 - Age-related osteoporosis without current pathological fracture (ICD-10) Insomnia (11/22/19) ?G47.00 - Insomnia, unspecified (ICD-10) Allergic rhinitis (01/14/22) ?J30.9 - Allergic rhinitis, unspecified (ICD-10) Allergic rhinitis ?J30.9 - Allergic rhinitis, unspecified (ICD-10) Vitamin D deficiency ?E55.9 - Vitamin D deficiency, unspecified (ICD-10) Cognitive impairment ?R41.89 - Other symptoms and signs involving cognitive functions and awareness (ICD-10) Degenerative scoliosis ?M41.80 - Other forms of scoliosis, site unspecified (ICD-10) Osteoarthritis of left hip ?M16.12 - Unilateral primary osteoarthritis, left hip (ICD-10) Sensorineural hearing loss (SNHL) of both ears ?H90.3 - Sensorineural hearing loss, bilateral (ICD-10) 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 ?L03.90 - Cellulitis, unspecified (ICD-10) ?A28.0 - Pasteurellosis (ICD-10) ?W55.01XA - Bitten by cat, initial encounter (ICD-10) Osteoporosis (2012) ?M81.0 - Age-related osteoporosis without current pathological fracture (ICD-10) Lyme disease (08/10/13) ?A69.20 - Lyme disease, unspecified (ICD-10) Insomnia ?G47.00 - Insomnia, unspecified (ICD-10) Chronic back pain (04/22/13) ?M54.9 - Dorsalgia, unspecified (ICD-10) ?G89.29 - Other chronic pain (ICD-10) Surgical History History of total left hip replacement (03/04/24) ?Z96.642 - Presence of left artificial hip joint (ICD-10) H/O excision of ganglion cyst (04/03/97) ?Z98.890 - Other specified postprocedural states (ICD-10) History of laminectomy ?Z98.890 - Other specified postprocedural states (ICD-10) 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) ?Z96.641 - Presence of right artificial hip joint (ICD-10) Status post dilation and curettage (1989) ?Z98.890 - Other specified postprocedural states (ICD-10) History of microdiscectomy (2007) ?Z98.890 - Other specified postprocedural states (ICD-10) History of hysterectomy (1989) ?Z90.710 - Acquired absence of both cervix and uterus (ICD-10) Family History Father Depression Social History Narrative: Exercises regularly- 3-4/ week, 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, 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 , 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, 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 Non-smoker Social drinker What is your current living situation?: I presently have a place to live In the past 12 months, utilities in danger of being shut off: no In past 12 months, lack of transportation kept you from medical appts, meetings, work, or getting things needed for daily living: no In the past 12 mos, have been you worried that your food would run out before you had money to buy more?: never true In the past 12 mos, the food you bought just didn't last and you didn't have money to buy more?: never true Smoking Status: Never smoker Do you use any of these nicotine containing products: None Second hand tobacco smoke exposure: No How often do you have a drink containing alcohol: 4 or more times a week AUDIT-C Alcohol total score: 4 Non-prescribed substance use: denies use How often does anyone, including family, friends and others, physically hurt you: never How often does anyone, including family, friends and others, insult or talk down to you: never How often does anyone, including family, friends and others, threaten you with harm: never How often does anyone, including family, friends and others, scream or curse at you: never Exam Const: Vital Signs, click to edit/add: Vital Signs - 24 hr 12/25/24 18:33 12/25/24 19:12 12/25/24 19:13 Temperature 98.1 F Pulse Rate 74 75 Pulse Rate [Pulse Oximeter] 63 Respiratory Rate 20 Blood Pressure 140/71 H Blood Pressure [Ri ght Upper Arm] 131/59 L Pulse Oximetry 95 100 97 Oxygen Delivery Me thod Room Air 12/25/24 19:15 12/25/24 19:16 12/25/24 19:21 Temperature Pulse Rate 74 79 Pulse Rate [Pulse Oximeter] Respiratory Rate Blood Pressure 133/65 Blood Pressure [Ri ght Upper Arm] Pulse Oximetry 98 96 100 Oxygen Delivery Me thod 12/25/24 19:31 12/25/24 19:41 12/25/24 19:43 Temperature Pulse Rate Pulse Rate [Pulse Oximeter] Respiratory Rate Blood Pressure 132/62 134/62 127/63 Blood Pressure [Ri ght Upper Arm] Pulse Oximetry Oxygen Delivery Me thod 12/25/24 19:52 12/25/24 20:02 12/25/24 20:10 Temperature Pulse Rate Pulse Rate [Pulse Oximeter] Respiratory Rate Blood Pressure 128/60 116/48 L 108/64 Blood Pressure [Ri ght Upper Arm] Pulse Oximetry Oxygen Delivery Me thod 12/25/24 20:21 Temperature Pulse Rate Pulse Rate [Pulse Oximeter] Respiratory Rate Blood Pressure 129/67 Blood Pressure [Ri ght Upper Arm] Pulse Oximetry Oxygen Delivery Me thod This 79-year-old female is alert, interactive, no apparent distress. GCS is 15/15. She is breathing independently, fully capable of CIS inked speech. Pupils are equal and round, her right eye does seem to want to stay in a rightward gaze initially but I a.m. able to get her to face me straight on with her head straight in her eyes are both forward. She seems to have a visual field cut in the center of her vision at times. This is definitely with testing of the right eye. Her noted similar findings. She does seem to have some difficulty following commands but is ultimately able to do them. Hand dishwasher strength are normal, will do things like when ask her to lift her right leg off the bed, she takes her right leg and attempts to lift it all the way over off the side of the bed instead of straight up. She lists her left leg straight up. She will move her ankles and feet. Seems to have normal light touch sensation throughout. 8:15 p.m.: Cathie still has a tendency to be looking towards the right even her head turned toward the right but do see it go midline. She seems to have normal vision at this time on gross confrontation. Pupils are equal round reactive, extraocular muscles intact. Her speech stays the same and is normal. Strength is 5/5 and symmetric in her hands, arms. Can lift each leg off the bed and hold it. She has no arm drift, no dysmetria on [id number]. She states she feels her vision is little better but still is complaining of the headache. The fentanyl was given maybe upwards of 10 minutes ago. Will give this just a little while longer but may need to re-dose the fentanyl. She did not feel any lightheadedness or generalized symptoms from the fentanyl. Documenting provider has reviewed patient's vital signs: yes Course Course ED Course: Patient will be on cardiac monitoring, pulse oximetry. Nursing staff did draw blood when they placed an IV. I spoke with the mechanical equipment test engineer at [facility] Dr. Smith shortly after 7:00 p.m.. This patient has nothing to reverse as far as anticoagulants. She is going to update neuro surgery so there where. We are to keep her systolic blood pressure less than 140 and will start a nicardipine drip if needed. Will load with Keppra 1000 mg IV. They will be able to take her, are going to expedite transfer. We will be sending the nicardipine drip with EMS in case it needs to be started. Reevaluation(s) Time of Reevaluation #1: 19:48 Reevaluation #1: Has been had questions as to seriousness. Discussed with him that I do think he should go up there tonight but ultimately if he can not, they will have his phone number. He had questions about when surgery would be done, reviewed with him that I cannot answer some of these questions, they are beyond my scope of practice. Reviewed with him that when we see serious pathology like this, patient's are transferred and I do not follow beyond that. She does need to be where there is the capacity for neurosurgery intervention if needed. I do not believe that they will do anything surgically at this time given her stability. Time of Reevaluation #2: 19:57 Reevaluation #2: Nursing staff is reporting that her headache is increasing again. Will give her some IV fentanyl and Zofran, awaiting transfer. Vital Signs Vital signs: Initial Vital Signs Temperature 98.1 F 12/25/24 18:33 Temperature Source Temporal Artery Scan 12/25/24 18:33 Pulse Rate 63 12/25/24 18:33 Respiratory Rate 20 12/25/24 18:33 Blood Pressure 131/59 L 12/25/24 18:33 Blood Pressure Mean 83 12/25/24 18:33 Blood Pressure Position Sitting 12/25/24 18:33 Pulse Oximetry 95 12/25/24 18:33 Oxygen Delivery Method Room Air 12/25/24 18:33 Vital Signs Temperature 98.1 F 12/25/24 18:33 Pulse Rate 63 12/25/24 18:33 Respiratory Rate 20 12/25/24 18:33 Blood Pressure 131/59 L 12/25/24 18:33 Pulse Oximetry 95 12/25/24 18:33 Oxygen Delivery Method Room Air 12/25/24 18:33 Temperature 98.1 F 12/25/24 18:33 Pulse Rate 79 12/25/24 19:21 Respiratory Rate 20 12/25/24 18:33 Blood Pressure 129/67 12/25/24 20:21 Pulse Oximetry 100 12/25/24 19:21 Oxygen Delivery Method Room Air 12/25/24 18:33 Medications Administered Medications: Discontinued Medications Generic Name Dose Route Start Last Admin Trade Name Freq PRN Reason Stop Dose Admin Fentanyl 25 mcg 12/25/24 19:57 12/25/24 20:10 Fentanyl 100 Mcg/2 Ml Inj IVP 12/25/24 19:58 25 mcg ONCE ONE Administration Levetiracetam 1,000 mg/ Sodium 110 mls @ 440 mls/hr 12/25/24 19:16 12/25/24 19:39 Chloride IVPB 12/25/24 19:17 Infused ONCE ONE Infusion Ondansetron HCl 4 mg 12/25/24 19:57 12/25/24 20:09 Ondansetron 2 Mg/Ml Inj IVP 12/25/24 19:58 4 mg ONCE ONE Administration Medical Decision Making Lab Data Lab results reviewed: Yes I reviewed the patient's lab results Labs: Lab Results 12/25/24 Range/Units 19:10 WBC 11.57 H (4.50-11.00) K/uL RBC 3.94 L (4.00-5.20) m/uL Hgb 11.7 L (12.0-16.0) gm/dL Hct 36.2 (33.0-51.0) % MCV 92 (80-100) fL MCH 30 (26-34) pg MCHC 32 (32-36) gm/dL RDW Coeff of Mayelin 13.3 (11.5-15.5) % Plt Count 204 (140-440) K/uL Neut % (Auto) 81.0 H (42.0-72.0) % Lymph % (Auto) 13.1 L (20-44) % [place] % (Auto) 5.2 (0.0-11.0) % Eos % (Auto) 0.0 (0.0-7.0) % Baso % (Auto) 0.5 (0.0-3.0) % Neut # (Auto) 9.40 H (1.7-7.0) K/uL Lymph # (Auto) 1.50 (0.90-2.90) K/uL [place] # (Auto) 0.60 (0.00-0.90) K/UL Eos # (Auto) 0.00 (0.00-0.50) K/uL Baso # (Auto) 0.10 (0.00-0.30) K/uL Abs Immat Gran (auto) 0.00 (0.00-0.30) K/uL Imm/Tot Granulo (auto) 0.2 % INR 0.93 (0.91-1.10) APTT 22 L (23-33) Seconds Sodium 138 (135-149) mmol/L Potassium 3.8 (3.6-5.1) mmol/L Chloride 104 (96-114) mmol/L Carbon Dioxide 26 (20-32) mmol/L Anion Gap 8 (7-15) mEq/L BUN 25 (7-30) mg/dL Creatinine 0.7 (0.5-1.5) mg/dL Estimated Creat Clear 33.32 Estimated GFR 88 ml/min Glucose 163 H (60-115) mg/dL Calcium 9.4 (8.4-10.6) mg/dL Total Bilirubin 0.4 (0.1-1.5) mg/dL AST 26 (12-35) U/L ALT 18 (4-35) U/L Alkaline Phosphatase 54 (40-150) U/L Total Protein 6.8 (6.0-8.3) g/dL Albumin 4.4 (3.3-5.0) g/dL Imaging Data CT scan - head: Attestation: I have reviewed the pertinent imaging results. My impression: Did see CT while patient was in scan. See large intraventricular hemorrhage on brief look, will call for transfer and see patient back in ED. Radiologist's impression: Patient: MICHELE SOMERS Facility:?[facility] Patient ID:?[id number] Site Patient ID:?[id number]. Site :?[id number] Study:?CT-Head STROKE PROTOCOL-12/25/2024 7:02:04 PM Ordering Physician:Netta Ward Final Report: INDICATION: Altered mental status. COMPARISON: None. TECHNIQUE: CT of the brain / head without intravenous contrast. Multiplanar axial, coronal, and sagittal reformats were reconstructed. FINDINGS: There is a large acute intraparenchymal hematoma in the right parieto-occipital lobe. The intraparenchymal hematoma measures 5.1 x 4.1 x 4.6 cm (AP by transverse by cc). There is intraventricular extension with hyperdense blood products in the right lateral ventricle. There is subdural extension along the right side of the tentorium and some blood along the posterior falx. There is a small amount of edema around the parenchymal portion of the hematoma. There is no midline shift or herniation. Mild age-related parenchymal volume loss. There is some periventricular hypodensities that are nonspecific but probably reflect microvascular ischemia. No skull fractures. No worrisome focal bone lesion. IMPRESSION: There is a large right parieto-occipital intraparenchymal hematoma with intraventricular and subdural extension. No midline shift or herniation. Discussed with Dr. [facility] at 7:12 p.m. on 12/25/2024. Please note that all CT scans at this facility use dose modulation, iterative reconstruction, and/or weight-based dosing when appropriate to reduce radiation dose to as low as reasonably achievable. Dictated by Gail Butler MD @ 12/25/2024 7:13:20 PM (Electronic Signature) Discharge Plan Discharge Clinical Impression: Intracranial hemorrhage Patient Disposition: Xfer [facility] Discharge Location: [facility] Condition: Unchanged Activity Level: No Restrictions Discharge Diet: Regular Prescriptions: No Action calcium carbonate 260 mg calcium (648 mg) tablet 260 mg PO QDAY aspirin [Adult Low Dose Aspirin] 81 mg tablet,delayed release (DR/EC) 81 mg PO QDAY cetirizine [Zyrtec] 10 mg tablet 10 mg PO DAILY acetaminophen 500 mg capsule 500 - 1,000 mg PO Q6H MDD 4000mg PRNQty: 100 0RF fluticasone propionate [Flonase Allergy Relief] 50 mcg/actuation spray,suspension 2 spray intranasal DAILY PRN Rx Instructions: administer into each nostril cholecalciferol (vitamin D3) 25 mcg (1,000 unit) tablet 1,000 unit PO DAILY Qty: 90 3RF sertraline 100 mg tablet 100 mg PO QDAY Qty: 90 1RF gabapentin 300 mg capsule 300 mg PO QHS Qty: 90 1RF Stand Alone Forms: [facility] Info Instructions
--- OUTSIDE RECORDS SUMMARY | 2024-12-25 19:27 | XMS_ITS | Referral Summary ---
Author Organization [place] Address [address] [place] [address] Care Team Providers Care Solid Glass Rod Dowel Machine Operator Name Role Phone Ed Walsh MD Primary Care Provider [phone] Encounters Date Type Department Care Team Description 11/24/2024 Telephone [facility] [address] [place] [phone] Piedad Lemon, spectrographer Request 11/24/2024 Telephone [facility] [address] [place] [phone] Piedad Lemon, RN Covid 19 Testing from Last 3 Months Social History Tobacco Use Types Packs/Day Years Used Date Smoking Tobacco: Never Assessed Comments Unknown Sex and Gender Information Value Date Recorded Sex Assigned at Not on file Legal Sex Female 3:30 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 [address] [place] [address] PCP - General Family Medicine 09/20/24
--- OUTSIDE RECORDS SUMMARY | 2024-12-25 19:27 | XMS_ITS | Clinical Summary ---
Author Organization [place] Address [address] [place] [address] Care Team Providers Care Senior Analyst Developer Name Role Phone Ed Walsh MD Primary Care Provider [phone] Encounters Date Type Department Care Team Description 11/24/2024 Telephone [facility] Nurse Advisors [address] [place] [phone] Piedad Lemon, brush and broom clipper Request 11/24/2024 Telephone [facility] Nurse [facility] [address] [place] [phone] Piedad Lemon, RN Covid 19 Testing from Last 3 Months Social History Tobacco Use Types Packs/Day Years Used Date Smoking Tobacco: Never Assessed Comments Unknown Sex and Gender Information Value Date Recorded Sex Assigned at Not on file Legal Sex Female 3:30 AM WEATHER REPORTER Gender Identity Not on file Sexual Orientation Not on file Plan of Treatment Not on file Insurance [facility] BL[facility] MEDICARE [facility] Address: [address] [address] [place] [address] MEDICARE Care Teams Senior Analyst Developer Relationship Specialty Start Date End Date Ed Walsh MD [facility] [address] [place] [address] PCP - General Family Medicine 09/20/24
--- OUTSIDE RECORDS SUMMARY | 2024-12-25 19:27 | XMS_ITS | Encounter Summary ---
Author Organization [place] Address [address] [place] [id number] Care Team Providers Care Manager Environmental Affairs Name Role Phone Ed Walsh MD Primary Care Provider [phone] Reason for Visit * Reason Onset Date Comments Medication Request 11/24/2024 Encounter Details Date Type Department Care Team (Late st Contact Info) Description 11/24/2024 Telephone [facility] [address] [place] [phone] Piedad Lemon, detailer Request Social History Tobacco Use Types Packs/Day Years Used Date Smoking Tobacco: Never Assessed Comments Unknown Sex and Gender Information Value Date Recorded Sex Assigned at Not on file Legal Sex Female 3:30 AM CRIME SCENE ANALYST Gender Identity Not on file Sexual Orientation Not on file documented as of this encounter Miscellaneous Notes * Telephone Encounter - Roya Gerardo RN - 11/24/2024 9:21 AM CST Pt's spouse returning missed call back, verbal consent given. Relayed to pt's spouse, Rx will be sent to [facility] in [place] by stationary equipment mechanic provider. Check with pharmacy. Spouse will call and check with [facility]. Roberto Gerardo RN, BSN 11/24/2024 at 9:23 AM [place] [facility] E SCENE ANALYST * Telephone Encounter - Piedad Lemon RN - 11/24/2024 7:53 AM CRIME SCENE ANALYST Telephone call calling to report she tested for covid and tested positive stuffy nose fatigue ,low grade, feeling poorly. She started with symptoms on 11/22/2023. Paged dr Estes from [facility] and she was going to prescribe paxlovid to the [facility] in [place]. She will call the patient if she needs to holdany meds while she is on Paxlovid. Clarisse Lemon RN [facility] Nurse Advisor 8:14 AM 11/24/2024 E SCENE ANALYST documented in this encounter Plan of Treatment Not on file documented as of this encounter Visit Diagnoses Not on filedocumented in this encounter Care Teams Manager Environmental Affairs Relationship Specialty Start Date End Date Ed Walsh MD [facility] [address] [address] PCP - General Family Medicine 09/20/24 documented as of this encounter
--- OUTSIDE RECORDS SUMMARY | 2024-12-25 19:27 | XMS_ITS | Encounter Summary ---
Author Organization [facility] Address [address] [place] [id number] Care Team Providers Care Central Supply Clerk Name Role Phone Ed Walsh MD Primary Care Provider [phone] Reason for Visit * Reason Onset Date Comments Covid 19 Testing 11/24/2024 Encounter Details Date Type Department Care Team (Late st Contact Info) Description 11/24/2024 Telephone [facility] [address] [place] [address] Piedad Lemon, RN Covid 19 Testing Social History Tobacco Use Types Packs/Day Years Used Date Smoking Tobacco: Never Assessed Comments Unknown Sex and Gender Information Value Date Recorded Sex Assigned at Not on file Legal Sex Female 3:30 AM PLASTER PATTERN CASTER Gender Identity Not on file Sexual Orientation Not on file documented as of this encounter Miscellaneous Notes * Telephone Encounter - Piedad Lemon RN - 11/24/2024 6:00 AM PLASTER PATTERN CASTER Telephone call Patient wanted a prescription for [...] will call back. Clarisse Lemon RN M [facility] Nurse Advisor 6:05 AM 11/24/2024 TER PATTERN CASTER documented in this encounter Plan of Treatment Not on file documented as of this encounter Visit Diagnoses Not on filedocumented in this encounter Care Teams Central Supply Clerk Relationship Specialty Start Date End Date Ed Walsh MD [facility] [address] [place] [address] PCP - General Family Medicine 09/20/24 documented as of this encounter
--- OUTSIDE RECORDS SUMMARY | 2024-12-25 19:27 | XMS_ITS | Clinical Summary ---
Author Organization [facility] Address [place], [place] [address] Care Team Providers Care Insulation Cupola Charger Name Role Phone Autumn Raphael Unavailable [phone] None Primary Care Provider Unavailabl e [...] 1,000 units by mouth. 2 Active omega 9-dyd-fvg-fish oil (Fish OiL) 100-160-1,000 mg cap by Not Applicable route. Active omega-3 acid ethyl esters (LOVAZA;OMACOR) 1 gram capsule Take 1 Capsule by mouth. 2 Active turmeric-g.tea- pterostil-brocc 738-087-14-30 mg cap Take by mouth. 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 PCP - General 03/20/23 Autumn Raphael AuD Audiology 08/15/12
[2024-12-25 19:41] LABS: Basophils Percent Auto 0.5 % (0.0-3.0); Hematocrit 36.2 % (33.0-51.0); Hemoglobin* 11.7 gm/dL (12.0-16.0); Immature Granulocytes Pct Auto 0.2 %; Lymphocytes Percent Auto 13.1 % (20-44); Mean Corpuscular HGB Conc 32 gm/dL (32-36); Mean Corpuscular Hemoglobin 30 pg (26-34); Mean Corpuscular Volume 92 fL (80-100); Monocytes Percent Auto 5.2 % (0.0-11.0); Platelet Count* 204 K/uL (140-440); RDW Coefficient of Variation % 13.3 % (11.5-15.5); Red Blood Count 3.94 m/uL (4.00-5.20); White Blood Count* 11.57 K/uL (4.50-11.00)
[2024-12-25 19:49] LABS: Slide Review Reflex No
[2024-12-25 19:54] LABS: Albumin* 4.4 g/dL (3.3-5.0); Chloride* 104 mmol/L (96-114); Sodium* 138 mmol/L (135-149)
[2024-12-25 19:55] LABS: Potassium* 3.8 mmol/L (3.6-5.1)
[2024-12-25 19:57] LABS: Alanine Aminotransferase* 18 U/L (4-35); Alkaline Phosphatase* 54 U/L (40-150); Anion Gap 8 mEq/L (7-15); Aspartate Amino Transferase* 26 U/L (12-35); Bilirubin Total* 0.4 mg/dL (0.1-1.5); Blood Urea Nitrogen* 25 mg/dL (7-30); Carbon Dioxide* 26 mmol/L (20-32); Creatinine* 0.7 mg/dL (0.5-1.5); Est. Creatinine Clearance* 33.32; Estimated Glomerular Filt Rate 88 ml/min; Glucose* 163 mg/dL (60-115); INR 0.93 (0.91-1.10); Total Protein* 6.8 g/dL (6.0-8.3)
[2024-12-25 19:58] LABS: Calcium* 9.4 mg/dL (8.4-10.6); Partial Thromboplastin Time* 22 Seconds (23-33)
[2024-12-25] MEDS: ONDANSETRON 2 MG/ML inj 4 MG IVP (20:09)
[2024-12-25] MEDS: fentaNYL 100 MCG/2 ML inj 25 MCG IVP (20:10)
== END 2024-12-25 20:37 | disposition short-term general hospital (02) ==
LOC: ED 19:25
PROVIDERS: Emergency Provider Family Medicine; PCP Family Medicine
DX: S06.360A Traumatic hemorrhage of cerebrum, unspecified, without loss of consciousness, initial encounter (principal)
CPT/HCPCS: 36415; 70450; 80053; 85025; 85610; 85730; 94761; 96365; 96375; 99284; 99291; J1953; J2405; J3010

== ENCOUNTER 2024-12-25 20:30 | Outpatient (CLI) | payer MEDICARE, BC, SELFPAY | END 2024-12-25 20:31 | disposition home or self-care (01) | LOC: AMB 12-31 09:44 | PROVIDERS: PCP Family Medicine; Visit Provider Family Medicine | DX: I62.9 Nontraumatic intracranial hemorrhage, unspecified (principal) | CPT/HCPCS: A0425; A0427 ==

== ENCOUNTER 2025-01-26 14:51 | Outpatient (CLI) | payer MEDICARE, BC, SELFPAY | END 2025-01-26 14:52 | disposition home or self-care (01) | LOC: AMB 01-27 16:11 | PROVIDERS: PCP Family Medicine; Visit Provider Internal Medicine | DX: S79.919A Unspecified injury of unspecified hip, initial encounter (principal); F03.90 Unspecified dementia, unspecified severity, without behavioral disturbance, psychotic disturbance, mood disturbance, and anxiety; W18.30XA Fall on same level, unspecified, initial encounter; Y92.009 Unspecified place in unspecified non-institutional (private) residence as the place of occurrence of the external cause | CPT/HCPCS: A0425; A0429 ==

== ENCOUNTER 2025-01-26 15:16 | Inpatient (IN) | payer MEDICARE, BC, SELFPAY ==
[2025-01-26 15:28] VITALS: BP 133/65; PULSE 78; RESP 16; TEMP 36.3; O2SAT 99; BMI 18.3
--- NOTE | 2025-01-26 15:32 | ED.GENADULT ---
HPI - General Adult General Date Seen: 01/26/25 Chief complaint: Fall/Minor Trauma Stated complaint: Falls Time Seen by Provider: 01/26/25 15:23 History of Present Illness HPI narrative: 79 yo F alzheimers dementia, spinal stenosis, depression, hearing loss. She suffered a large right occipital intracranial hemorrhage with intraventricular extension (secondary to Leqembi. subsequently DCed) and was seen here in the ER on 12/25/2024. She was transferred [facility]. She apparently had a 5 week stay in the hospital. Stay was complicated by hyponatremia and significant delirium from her Alzheimer's. She was finally medically clear and was discharged home with her family 6 days ago, on Monday. says that she has still been delirious, not conversant as up to her previous baseline. She did have a dementia prior to the intracranial hemorrhage but was still able to drive a car at that point. Sounds like she has mostly been lying in bed and sitting in chairs, not much ambulating. She has been receiving iebqe-tpu-hauii surveillance from her family and from home caregivers. notes that she seemed to have escalating delirium last night. She was restless not of bed and walking around the house last night. Her was trying to redirect her. She fell and struck her left side against the dresser in their bedroom. He thinks she may have injured her left hip and seems to have noticed some bruising on the left posterior buttock. Also he thinks she might have hit her ribs when she fell. He was able to help her get up after the fall and she was ambulatory last night to get back in bed. This morning she seems to be having more pain on that left side, (more than her baseline chronic pain from her lumbar stenosis). Per [facility] discharge summary dated 01/20 Brain MRI 12/26/24 showed stability to right parieto-occipital hematoma, along with multiple areas of chronic microhemorrhages, concerning for possible amyloid angiopathy. It was ultimately determined that her intracranial hemorrhage was likely secondary to the Leqembi which has been discontinued. Issue continues to be inconsistent orientation (typically oriented to self), fluctuations in sleep cycle and agitation. Strength/mobility below baseline. Episodically has had more agitation at night and not sleeping well and she has consistently needed a sitter or ROBS. Family has been consistently in the hospital providing support. Neurology and psychiatry have followed for her encephalopathy (likely structural with alzheimer, metabolic (hyponatremia), with ICU delirium being a part.) Unclear how much of mentation is her new normal following stroke symptoms with intracranial hemorrhage and visual field cuts vs reversible. SSRI discontinued (concerns for hyponatremia). She was started on remeron for mood and sleep. More recently also using low dose nightime zyprexa- although trying to avoid excess day time somnolence. ? Patient developed fever without other localized symptoms, chest radiograph and UA negative, CT chest abdomen pelvis unrevealing. Fever has resolved without any symptoms ? Hyponatremia Sodium down to 130 had previously been stable so patient started on 3% to raise Sodium to 140's. Remains on salt tabs with normal sodium. With the Sodium 144, we decreased from three times daily to twice daily the 1000 mg of salt tablets Recommend Sodium in follow up and to wean the salt tablets as able if Sodium levels remain stable. ? Dysphagia She passed PIZZA COOK assessment and was cleared for regular diet with thin liquids. Tube feeds transitioned to nocturnal, keofeed was pulled out on 01/05/2025 and not replaced ? Patient seen by palliative care and met with family had care conference on Sunday 01/14 to discuss current course and plan going forward. Slow clinical recovery and underlying progressive dementia posing significant challenges for rapid recovery and improvement in patient's quality of life. ? She will discharge to home with home health care on 01/20/25 ? Follow up with primary care physician later this week or next week with Sodium level check Current Meds Acetaminophen 650 mg q.4 hours p.r.n. Amlodipine 2.5 mg b.i.d. Lidocaine topical patches 4% on 12 hours, off 12 hours Mirtazapine 15 mg q.h.s. Olanzapine 2.5 mg QHS if needed for sleep or agitation Propranolol 20 mg b.i.d. Sodium chloride 1000 mg tablet b.i.d. Gabapentin 300 mg p.o. q.h.s.. Of note gabapentin had been decreased while she was in the hospital from 300 mg pre-hospital down to 100 mg p.o. q.h.s.. Her PCP, Dr. Walsh, during a phone call, increased it back up to 300 mg p.o. q.h.s. 3 days ago because of agitation at night Calcium carbonate Fluorouracil cream Glucosamine/chondroitin Zyrtec 10 mg p.o. once daily p.r.n. Medications that were discontinued during her hospitalization Aspirin 81 mg Hydrocodone/acetaminophen Sertraline Ibuprofen Tylenol p.m. Terence Most recent labs were on 01/19. On that day sodium was 144, hemoglobin was 9.5, hematocrit 91. Prior to that she had labs on 01/13: On that day sodium was 144, potassium 3.9, creatinine 0.59, WBC 6.3, hemoglobin 9.1, platelet count 408. ALT 45, AST 27, alk-phos 110. Ammonia 18. She had a negative chest x-ray on 01/16. History is obtained from the patient's family, her and her [id number]. They report that they were able to bring her home from [facility] last Monday. It sounds like there were discussions about potential need for facility placement, but they were discharged home with home assistance and resources. says that on the whole she has been doing okay but still has delirium. She has had fluctuating confusion and restlessness. In particular she became for more restless last night. This was not completely out of character for her and she had had similar restless nights while in the hospital. does not really notice any other new change in her health. No new fever. No cough. No trouble breathing. No change in urination such as smell or odor or cloudiness. Bowel movements have been normal. She has been eating and drinking some. She has been taking her prescribed meds. notes that because of poor sleep , based on a phone conversation her PCP, Dr. Walsh, did increase her gabapentin from 100 mg at bedtime up to 300 mg at bedtime 2 or 3 days ago. Last night she was more restless and up walking around. is trying to help her and when she fell and she struck her left side against a dresser or some furniture. He thinks she might have hit her ribs. He is confident she did not hit her head. She was able to get up and walk after the fall but this morning he seems to have be having more pain and is having difficulty transferring. Her caregivers noted some bruising on her left buttock and are concerned about a possible hip fracture. She has had previous bilateral hip replacements. These boxes were produced by the electronic health record I am not able to delete them. ? Related Data Home Medications ?Medication ?Instructions ?Recorded ?Confirmed cetirizine 10 mg tablet (Zyrtec) 10 mg PO DAILY 03/04/24 01/21/25 amlodipine 2.5 mg tablet 2.5 mg PO BID 01/21/25 01/26/25 calcium carbonate 1,250 mg PO QDAY 01/21/25 01/21/25 fluorouracil 5 % topical cream 1 applic topical BID 01/21/25 01/21/25 gabapentin 100 mg capsule 300 mg PO QHS 01/21/25 01/26/25 qrncvtegcxf-fapwctsaf-msj C-Mn 500 1 cap PO QDAY 01/21/25 01/21/25 mg-400 mg capsule (Glucosamine-Chondroitin Complex) lidocaine 4 % topical patch 1 patch topical BID PRN 01/21/25 01/21/25 melatonin 3 mg tablet 3 mg PO QHS 01/21/25 01/21/25 mirtazapine 15 mg tablet 15 mg PO QHS 01/21/25 01/26/25 hlmtibvy-cjk-wnbhl ac 400 1 tab PO QDAY 01/21/25 01/21/25 mcg-calcium carb 500 mg-vit K1 20 mcg tablet (Women's 50 Plus Multivitamin) olanzapine 5 mg disintegrating 2.5 mg PO QHS 01/21/25 01/21/25 tablet omega 0-grt-idc-fish oil 1,200 mg 1 cap PO QDAY 01/21/25 01/21/25 (144 mg-216 mg) capsule (Fish Oil) propranolol 20 mg tablet 20 mg PO BID 01/21/25 01/26/25 sodium chloride 1 gram tablet 1,000 mg PO BID 01/21/25 01/21/25 zoledronic acid 5 mg/100 mL in ea IV 01/21/25 01/21/25 mannitol 5 %-water intravenous piggybck (Reclast) mirtazapine 7.5 mg tablet mg 01/26/25 Previous Rx's ?Medication ?Instructions ?Recorded acetaminophen 500 mg capsule 500 - 1,000 mg (1 - 2 x 500 mg) PO 03/04/24 Q6H PRN #100 caps Allergies Allergy/AdvReac Type Severity Reaction Status Date / Time pollen extracts Allergy Intermediate Verified 01/21/25 14:43 PFSH PFSH Medical History (Updated 01/26/25 @ 19:02 by Jorge Hilliard MD) Alzheimer's dementia ?G30.9 - Alzheimer's disease, unspecified (ICD-10) ?F02.80 - Dementia in other diseases classified elsewhere, unspecified severity, without behavioral disturbance, psychotic disturbance, mood disturbance, and anxiety (ICD-10) Generalized anxiety disorder ?F41.1 - Generalized anxiety disorder (ICD-10) Major depression, recurrent ?F33.9 - Major depressive disorder, recurrent, unspecified (ICD-10) Bilateral cataracts ?H26.9 - Unspecified cataract (ICD-10) 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) ?M47.816 - Spondylosis without myelopathy or radiculopathy, lumbar region (ICD-10) Osteopenia (12/16/22) ?M85.80 - Other specified disorders of bone density and structure, unspecified site (ICD-10) Memory deficit (11/21/23) ?R41.3 - Other amnesia (ICD-10) Incontinence of feces (11/21/23) ?R15.9 - Full incontinence of feces (ICD-10) 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/22/19) ?Z85.89 - Personal history of malignant neoplasm of other organs and systems (ICD-10) History of Lyme disease (11/22/19) ?Z86.19 - Personal history of other infectious and parasitic diseases (ICD-10) History of COVID-19 (10/27/21) ?Z86.16 - Personal history of COVID-19 (ICD-10) Hearing aid worn (10/27/21) ?Z97.4 - Presence of external hearing-aid (ICD-10) Depression, major, 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) ?F32.4 - Major depressive disorder, single episode, in partial remission (ICD-10) Osteoporosis (11/22/19) ?M81.0 - Age-related osteoporosis without current pathological fracture (ICD-10) Insomnia (11/22/19) ?G47.00 - Insomnia, unspecified (ICD-10) Allergic rhinitis (01/14/22) ?J30.9 - Allergic rhinitis, unspecified (ICD-10) Allergic rhinitis ?J30.9 - Allergic rhinitis, unspecified (ICD-10) Vitamin D deficiency ?E55.9 - Vitamin D deficiency, unspecified (ICD-10) Cognitive impairment ?R41.89 - Other symptoms and signs involving cognitive functions and awareness (ICD-10) Degenerative scoliosis ?M41.80 - Other forms of scoliosis, site unspecified (ICD-10) Osteoarthritis of left hip ?M16.12 - Unilateral primary osteoarthritis, left hip (ICD-10) Sensorineural hearing loss (SNHL) of both ears ?H90.3 - Sensorineural hearing loss, bilateral (ICD-10) 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 ?L03.90 - Cellulitis, unspecified (ICD-10) ?A28.0 - Pasteurellosis (ICD-10) ?W55.01XA - Bitten by cat, initial encounter (ICD-10) Osteoporosis (2012) ?M81.0 - Age-related osteoporosis without current pathological fracture (ICD-10) Lyme disease (08/10/13) ?A69.20 - Lyme disease, unspecified (ICD-10) Insomnia ?G47.00 - Insomnia, unspecified (ICD-10) Chronic back pain (04/22/13) ?M54.9 - Dorsalgia, unspecified (ICD-10) ?G89.29 - Other chronic pain (ICD-10) Surgical History (Updated 01/23/25 @ 21:58 by Ed Walsh MD) History of total left hip replacement (03/04/24) ?Z96.642 - Presence of left artificial hip joint (ICD-10) H/O excision of ganglion cyst (04/03/97) ?Z98.890 - Other specified postprocedural states (ICD-10) History of laminectomy ?Z98.890 - Other specified postprocedural states (ICD-10) 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) ?Z96.641 - Presence of right artificial hip joint (ICD-10) Status post dilation and curettage (1989) ?Z98.890 - Other specified postprocedural states (ICD-10) History of microdiscectomy (2007) ?Z98.890 - Other specified postprocedural states (ICD-10) History of hysterectomy (1989) ?Z90.710 - Acquired absence of both cervix and uterus (ICD-10) Family History Father Depression Social History Narrative: Exercises regularly- 3-4/ week, walking, 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 , 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, 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 Non-smoker Social drinker What is your current living situation?: I presently have a place to live In the past 12 months, utilities in danger of being shut off: no In past 12 months, lack of transportation kept you from medical appts, meetings, work, or getting things needed for daily living: no In the past 12 mos, have been you worried that your food would run out before you had money to buy more?: never true In the past 12 mos, the food you bought just didn't last and you didn't have money to buy more?: never true Smoking Status: Never smoker Do you use any of these nicotine containing products: None Second hand tobacco smoke exposure: No How often do you have a drink containing alcohol: 4 or more times a week AUDIT-C Alcohol total score: 4 Non-prescribed substance use: denies use How often does anyone, including family, friends and others, physically hurt you: never How often does anyone, including family, friends and others, insult or talk down to you: never How often does anyone, including family, friends and others, threaten you with harm: never How often does anyone, including family, friends and others, scream or curse at you: never Exam Narrative: Exam Narrative: Constitutional: Appears well-developed and well-nourished. She is awake but restless. She is consistently pushing off her blankets, trying to pull off her gown, and then pulling her blankets back up. She is largely nonverbal but did say a couple of slightly slurred words to me. says that prior to her head bleed she had been fairly conversant. While in the hospital she was largely nonverbal and had been getting a little bit better since she has been home for the past 6 days. HENT: Head: Atraumatic. Nose: Nose normal. Mouth/Throat: Oral mucosa is clear and moist. no trismus. Difficult to visualize pharynx because the patient is not cooperative with exam. Eyes: Conjunctivae normal. EOM normal. Pupils equal, round, and reactive to light. No scleral icterus. Neck: Normal range of motion. Neck supple. No tracheal deviation present. No obvious bruising or posterior midline step-off however patient is not cooperative with exam to really endorse tenderness or not. No JVD. Cardiovascular: Normal rate, regular rhythm. No gallop. No friction rub. No murmur heard. Symmetric radial and PT artery pulses Pulmonary/Chest: Effort normal. No stridor. No respiratory distress. No wheezes. No rales. No rhonchi . Left chest wall tenderness. Abdominal: Soft. Bowel sounds normal. No distension. No mass. Left-sided abdominal tenderness. No rebound. No guarding. Musculoskeletal: No definite C, T, L-spine tenderness or reaction to palpation. No step-off. She does have groaning pain with palpation over left lower lateral rib cage. No crepitus. No bruising there RUE: Normal range of motion. No tenderness. No deformity LUE: Normal range of motion. No tenderness. No deformity RLE: Normal range of motion. No edema. No tenderness. No deformity LLE: reported that there was some bruising on her left posterior hip. On our exam we do not see any bruising. She has no definite reaction to palpation of her left hip, buttock, pelvis. Normal range of motion. No edema. No tenderness. No deformity The patient's preferred position is to keep both of her hips flexed at about 60? and knees flexed beyond 90? with her feet drawn up toward her buttocks. She is able to extend both legs. Neurological: awake, largely non-verbal. She is not really following commands. For instance, when I ask her to open her eyes, she keeps them shut. Sometime she opens her eyes spontaneously, especially when her talks to her. She has been using both arms and both legs well she is restless. When we start her IV in her right arm, she tries to pull her right arm away, but she does not use her left arm. Possibly some left-sided neglect. Skin: Skin is warm and dry. No rash noted. No pallor. Normal capillary refill. Psychiatric: Limited by altered mental status/presume delirium. Const: Vital Signs, click to edit/add: Vital Signs - 24 hr 01/26/25 15:28 01/26/25 18:14 Temperature 97.3 F L Pulse Rate 73 Pulse Rate [Pulse Oximeter] 78 Respiratory Rate 16 16 Blood Pressure 113/65 Blood Pressure [Le ft Leg] 133/65 Pulse Oximetry 99 98 Oxygen Delivery Me thod Room Air Room Air Course Vital Signs Vital signs: Initial Vital Signs Temperature 97.3 F L 01/26/25 15:28 Temperature Source Temporal Artery Scan 01/26/25 15:28 Pulse Rate 78 01/26/25 15:28 Respiratory Rate 16 01/26/25 15:28 Blood Pressure 133/65 01/26/25 15:28 Blood Pressure Mean 87 01/26/25 15:28 Pulse Oximetry 99 01/26/25 15:28 Oxygen Delivery Method Room Air 01/26/25 15:28 Vital Signs Temperature 97.3 F L 01/26/25 15:28 Pulse Rate 78 01/26/25 15:28 Respiratory Rate 16 01/26/25 15:28 Blood Pressure 133/65 01/26/25 15:28 Pulse Oximetry 99 01/26/25 15:28 Oxygen Delivery Method Room Air 01/26/25 15:28 Temperature 97.3 F L 01/26/25 15:28 Pulse Rate 73 01/26/25 18:14 Respiratory Rate 16 01/26/25 18:14 Blood Pressure 113/65 01/26/25 18:14 Pulse Oximetry 98 01/26/25 18:14 Oxygen Delivery Method Room Air 01/26/25 18:14 Medications Administered Medications: Discontinued Medications Generic Name Dose Route Start Last Admin Trade Name Alexandria PRN Reason Stop Dose Admin Olanzapine 5 mg 01/26/25 16:11 01/26/25 16:20 Olanzapine 5 Mg/Ml Inj IVP 01/26/25 16:12 5 mg ONCE ONE Administration Medical Decision Making MDM Narrative Medical decision making narrative: 1. Neuro. Patient does have nonfocal altered mental status. She is confused and difficult to redirect but not agitated or aggressive. At time she seems to pay attention answer questions and follow simple commands but most the time she is restless. Repeat head CT scan today shows interval improvement in her previous large intracranial hemorrhage. No signs of any new acute hemorrhage or complication. Workup for metabolic causes of delirium was undertaken. She did have some mild hyponatremia while in the hospital at [facility]. Sodium today is 140. Other electrolytes and blood sugar and kidney function are normal. Urinalysis weakly positive for UTI. Will treat with cephalexin. Suspect that her delirium is likely caused by her underlying dementia, recent large intracranial hemorrhage, and recent prolonged hospitalization. 2. Cardiac. Blood pressure stable. EKG nonischemic and troponin negative. 3. Pulmonary. Oxygen sat normal on room air. Lung sounds clear. She does have marked left lateral lower rib tenderness. CT scan of her chest and ribs does confirm an isolated, minimally displaced left 8th rib fracture. No evidence for associated hemopneumothorax. No evidence for pulmonary contusion 4. GI. No evidence for any acute inflammatory process in the abdomen or pelvis. No signs of any acute posttraumatic injury. 5. Ortho. Did have a fall last night. CT scan of her pelvis is negative for any acute hip or pelvic fracture 6. Infectious disease. No evidence for pneumonia on chest CT. No evidence for intra-abdominal infection. Urinalysis positive for nitrite which is weak evidence for UTI. No evidence for urosepsis. Will treat with cephalexin. Possible that her UTI could be contributing, along with her other medical problems, to her delirium. Discussed with our hospitalist, Dr. Hurst, who agrees to admit. Lab Data Labs: Lab Results 01/26/25 01/26/25 01/26/25 Range/Units 15:58 16:15 17:25 WBC 7.14 (4.50-11.00) K/uL RBC 3.39 L (4.00-5.20) m/uL Hgb 9.9 L (12.0-16.0) gm/dL Hct 31.6 L (33.0-51.0) % MCV 93 (80-100) fL MCH 29 (26-34) pg MCHC 31 L (32-36) gm/dL RDW Coeff of Mayelin 14.3 (11.5-15.5) % Plt Count 489 H (140-440) K/uL Neut % (Auto) 62.8 (42.0-72.0) % Lymph % (Auto) 24.4 (20-44) % Beltrami % (Auto) 7.7 (0.0-11.0) % Eos % (Auto) 3.5 (0.0-7.0) % Baso % (Auto) 0.6 (0.0-3.0) % Neut # (Auto) 4.49 (1.7-7.0) K/uL Lymph # (Auto) 1.74 (0.90-2.90) K/uL Beltrami # (Auto) 0.50 (0.00-0.90) K/UL Eos # (Auto) 0.25 (0.00-0.50) K/uL Baso # (Auto) 0.04 (0.00-0.30) K/uL Abs Immat Gran (auto) 0.07 (0.00-0.30) K/uL Imm/Tot Granulo (auto) 1.0 % Sodium 140 (135-149) mmol/L Potassium 4.5 (3.6-5.1) mmol/L Chloride 99 (96-114) mmol/L Carbon Dioxide 33 H (20-32) mmol/L Anion Gap 8 (7-15) mEq/L BUN 22 (7-30) mg/dL Creatinine 0.7 (0.5-1.5) mg/dL Estimated Creat Clear 32.66 Estimated GFR 88 ml/min Glucose 117 H (60-115) mg/dL Lactate 1.1 (0.5-1.9) mmol/L Calcium 9.6 (8.4-10.6) mg/dL Urine Color Yellow (Yellow) Urine Appearance Clear (Clear) Urine pH 7.0 (5.0-8.5) Ur Specific Steele 1.015 (1.000-1.030) Urine Protein Negative (Negative) Urine Glucose (UA) Negative (Negative) Urine Ketones Negative (Negative) Urine Blood Negative (Negative) Urine Nitrite Positive A (Negative) Urine Bilirubin Negative (Negative) Urine Urobilinogen 0.2 (0.2-1.0) Ur Leukocyte Esterase Trace A (Negative) Urine RBC 0-2 (0-2) Urine WBC 0-2 (0-5) Ur Squamous Epith Cells Few (None-Few) Urine Bacteria Many A (None) POC Troponin I 0.00 L (0.01-0.04) ng/ml Imaging Data CT scan - head: Attestation: I have reviewed the pertinent imaging results. Radiologist's impression: IMPRESSION: 1. Typical evolution of the now subacute hematoma within the right occipital lobe. Decreased size and mass effect. Previously seen intraventricular hemorrhage has resolved. Right-sided tentorial leaflet subdural hematoma has resolved. No new sites of intracranial hemorrhage elsewhere within the brain. CT C spine: Attestation: I have reviewed the pertinent imaging results. Radiologist's impression: IMPRESSION: 1. No acute fracture or traumatic malalignment of the cervical spine. CT Chest/Ab/Pelvis: Attestation: I have reviewed the pertinent imaging results. Radiologist's impression: IMPRESSION: 1. Mildly displaced left lateral 8th rib fracture. 2. No evidence of acute solid organ injury within the chest, abdomen, or pelvis. 3. Additional incidental findings as above. ECG Data Attestation: I personally reviewed and interpreted this ECG as follows: Interpretation: Normal sinus rhythm Rate: 78 AR: 142 QRS axis: Normal axis ST segment/T wave: No ST segment elevation or depression. Artifact in the limb leads could obscure subtle findings. QTc: 433 Discharge Plan Discharge Clinical Impression: Acute delirium, Fracture of rib, Acute UTI Prescriptions: No Action amlodipine 2.5 mg tablet 2.5 mg PO BID lidocaine 4 % adhesive patch,medicated 1 patch topical BID PRN mirtazapine 15 mg tablet 15 mg PO QHS olanzapine 5 mg tablet,disintegrating 2.5 mg PO QHS Rx Instructions: at bedtime if needed for sleep or agitation propranolol 20 mg tablet 20 mg PO BID sodium chloride 1 gram tablet 1,000 mg PO BID gabapentin 100 mg capsule 300 mg PO QHS calcium carbonate 500 mg calcium (1,250 mg) tablet 1,250 mg PO QDAY omega 6-jyo-nfx-fish oil [Fish Oil] 1,200 (144-216) mg capsule 1 cap PO QDAY melatonin 3 mg tablet 3 mg PO QHS Women's 50 Plus Multivitamin 400 mcg-500 mg calcium-20 mcg tablet 1 tab PO QDAY fluorouracil 5 % cream 1 applic topical BID Rx Instructions: APPLY A SMALL AMOUNT TO AFFECTED AREA TWICE A DAY TO HANDS AND NOSE FOR UP TO 2 WEEKS xxogmmgkzsi-jntjwjfdk-mam C-Mn [Glucosamine-Chondroitin Complx] 500-400 mg capsule 1 cap PO QDAY zoledronic adup-lazuecem-wryqw [Reclast] 5 mg/100 mL piggyback IV cetirizine [Zyrtec] 10 mg tablet 10 mg PO DAILY acetaminophen 500 mg capsule 500 - 1,000 mg PO Q6H MDD 4000mg PRNQty: 100 0RF mirtazapine 7.5 mg tablet Follow Up/Referrals: Ed Walsh MD [Primary Care Provider] -
[2025-01-26] MEDS: OLANZapine 5 MG/ML inj IVP ×2 (16:20→21:31)
[2025-01-26 16:28] LABS: Lactate* 1.1 mmol/L (0.5-1.9)
[2025-01-26 16:31] LABS: Basophils Absolute Auto 0.04 K/uL (0.00-0.30); Basophils Percent Auto 0.6 % (0.0-3.0); Eosinophils Absolute Auto 0.25 K/uL (0.00-0.50); Eosinophils Percent Auto 3.5 % (0.0-7.0); Hematocrit 31.6 % (33.0-51.0); Hemoglobin* 9.9 gm/dL (12.0-16.0); Immature Granulocytes Abs Auto 0.07 K/uL (0.00-0.30); Lymphocytes Absolute Auto 1.74 K/uL (0.90-2.90); Lymphocytes Percent Auto 24.4 % (20-44); Mean Corpuscular HGB Conc 31 gm/dL (32-36); Mean Corpuscular Hemoglobin 29 pg (26-34); Mean Corpuscular Volume 93 fL (80-100); Monocytes Percent Auto 7.7 % (0.0-11.0); Neutrophils Absolute Auto 4.49 K/uL (1.7-7.0); Neutrophils Percent Auto 62.8 % (42.0-72.0); Platelet Count* 489 K/uL (140-440); RDW Coefficient of Variation % 14.3 % (11.5-15.5); Red Blood Count 3.39 m/uL (4.00-5.20); White Blood Count* 7.14 K/uL (4.50-11.00)
[2025-01-26 16:34] LABS: Slide Review Reflex No
[2025-01-26 16:48] LABS: Chloride* 99 mmol/L (96-114); Sodium* 140 mmol/L (135-149)
[2025-01-26 16:49] LABS: Potassium* 4.5 mmol/L (3.6-5.1)
[2025-01-26 16:52] LABS: Anion Gap 8 mEq/L (7-15); Blood Urea Nitrogen* 22 mg/dL (7-30); Calcium* 9.6 mg/dL (8.4-10.6); Carbon Dioxide* 33 mmol/L (20-32); Creatinine* 0.7 mg/dL (0.5-1.5); Est. Creatinine Clearance* 32.66; Estimated Glomerular Filt Rate 88 ml/min; Glucose* 117 mg/dL (60-115)
[2025-01-26 17:33] LABS: Appearance Urine Clear (Clear); Bilirubin Urine Negative (Negative); Blood Urine Negative (Negative); Color Urine Yellow (Yellow); Glucose Urine Negative (Negative); Ketones Urine Negative (Negative); Leukocyte Esterase Urine Trace (Negative); Nitrite Urine Positive (Negative); Protein Urine Negative (Negative); Specific Gravity Urine 1.015 (1.000-1.030); Urobilinogen Urine 0.2 (0.2-1.0)
[2025-01-26 18:14] VITALS: BP 113/65; PULSE 73; RESP 16; O2SAT 98
[2025-01-26 18:15] LABS: Bacteria Urine Many; RBC Urine 0-2 (0-2); Squamous Epithelial Cell Urine Few (None-Few); WBC Urine 0-2 (0-5)
[2025-01-26] MEDS: cephALEXin 500 MG CAPSULE PO (19:26)
[2025-01-26] MEDS: OLANZapine 5 MG/ML inj 2.5 MG IVP (19:28)
--- NOTE | 2025-01-26 19:49 | PM.IMHP1 ---
Hospitalist- H&P: HPI History of Present Illness Date Seen: 01/26/25 Chief complaint: Falls Narrative: ADMISSION HISTORY AND PHYSICAL - HOSPITALIST Chief Complaint: Acute on chronic encephalopathy superimposed on advanced dementia, recent fall with injury, recent brain bleed HPI: 79-year-old white female with a history of advanced dementia, Alzheimer's subtype presents with her for ongoing encephalopathy/delirium manifested as sleep awake dysregulation, falls and inability to redirect. Patient presented to our ER on December 25 2024 with an acute intracranial bleed thought secondary to her new infusion for dementia: lecanemab (Leqembi). She was admitted to [facility] for five weeks. She experienced significant encephalopathy. She was treated for encephalopathy (d/t structural changes of dementia, acute bleed, metabolic from low sodium, and ICU delirium) and hyponatremia. 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 What I can gather from the medical record was that prior to intracranial bleed she was actually only moderately disabled from her dementia. She was on our service in February 2024 for an elective hip replacement and she did well, no sundowning or delirium. She was still driving, able to make conversation, and do most of her ADLs. This bleed was a significant setback. He was hopeful that being back at home would help her and he did set up 12/06 care for her in their home. Dr. Walsh is her PCP - he titrated mirtazapine to 30 mg nightly and titrated her gabapentin (chronic low back pain) back to 300mg at night. She was also discharged on zyprexa. What precipitated the ED visit today was a very exhausting night on 01/25. Kylie was hyperactive, not able to be redirected, and falling. She was up wandering around the house. she fell against the dresser and needed help up. Her was exhausted and not sure what to do for her. Her med changes from before the CVA to after: no longer on Tylenol PM or Zoloft or Leqembi no longer on klonopin, norco, adalidien was started on celexa, zyprexa, mirtazapine, propranolol, amlodipine from [facility] ER COURSE: images, labs, IV zyprexa, oral keflex investigations found - all brain bleeding/injury previously was in expected stage of healing; no new findings Mildly displaced left lateral 8th rib fracture. CODE STATUS: DNR/DNI EMERGENCY CONTACT PLAN: Abdifatah Tabor Rel To Pat Cell I've updated the PFSH, medications and allergies in the Expanse tabs. INVESTIGATIONS: LABS/MICRO/ECG/IMAGING Her vital signs are all stable. Her blood pressure is ranging 108-133 systolic. She is afebrile. Her pulse is regular in the 70s. Her respiratory rate is 16 and unlabored. She is 98% on room air and she weighs 45 kg. Her CBC reflects a normal white blood cell count. A stable anemia of 9.9. Her discharge hemoglobin from [facility] was 9.5. Her platelet count is 489. Her last platelet count at [facility] was 408. Her electrolytes, most notably her sodium is normal at 140. Her renal function is normal. Her glucose is 117. Her lactate is normal. Troponin normal. Her urine does show positive nitrites and leukocyte esterase. Many bacteria. I reviewed her cervical spine CT, her head CT and her chest abdomen pelvis CT. -Mildly displaced left lateral 8th rib fracture. Additional bilateral chronic rib fracture deformities. -Typical evolution of the now subacute hematoma within the right occipital lobe. Decreased size and mass effect. Previously seen intraventricular hemorrhage has resolved. Right-sided tentorial leaflet subdural hematoma has resolved. No new sites of intracranial hemorrhage elsewhere within the brain. -urine culture pending REVIEW OF SYSTEMS: 12-point ROS completed with patient and negative unless otherwise stated in HPI or below. PHYSICAL EXAM: CONSTITUTIONAL: can answer a couple of questions; restless in bed, wrapping cords around her hands, wringing her hands, trying to sit up. some nonsensical shouts and words. GENERAL: well kept; very thin. VITAL SIGNS: see record. HEENT: Sclerae are anicteric. No petechiae. CARDIAC: rhythm is regular. There is no S3 or rub. No harsh murmurs. Extremities show trace edema with symmetrical pulses. PULM: good air entry with no wheeze. NEURO: Speech is fluent. A brief neurologic exam is negative other than known sensorium alterations. I did not observe gait. SKIN: No rashes, petechiae, concerning changes PSYCHIATRIC: Euthymic. [facility] DVT: recent bleed so will not anticoagulate; scds will make her more agitated. this is a risk/benefit issue. GI: PO intake Time spent: Today I spent 75 minutes seeing the patient, discussing the patient with ER staff, reviewing Expanse and EPIC notes/diagnostics, discussing the care plan with our care time that includes social work, PT/OT, pharmacy, RT, nursing home and documenting my impressions and plan in the medical record. MEDICAL NECESSITY FOR HOSPITALIZATION Anticipated midnights in the hospital: 2 Admitting diagnosis: acute on chronic encephalopathy (structural - amyloid angiopathy and recent bleed; metabolic with current infection and fracture) Risk of morbidity and mortality: high Acuity is characterized as high and reflected in: advanced age, recent neurological event, cachectic, advanced dementia This patient will require hospital services as outlined in the assessment and plan in order to stabilize and be safely discharged to a lower level of care. Because of the risk and acuity as described above, this patient cannot be managed at a lower level of care. LENGTH OF STAY: 2 IP ? Anticipated LOS>2 midnights due to acuity of clinical presentation requiring inpatient level of care [facility] Medical History (Updated 01/26/25 @ 21:31 by Silvana Hurst MD) Atopic dermatitis ?L20.9 - Atopic dermatitis, unspecified (ICD-10) Actinic keratoses ?L57.0 - Actinic keratosis (ICD-10) Recurrent cold sores ?B00.1 - Herpesviral vesicular dermatitis (ICD-10) Nontraumatic cortical hemorrhage of right cerebral hemisphere ?I61.1 - Nontraumatic intracerebral hemorrhage in hemisphere, cortical (ICD-10) Generalized anxiety disorder ?F41.1 - Generalized anxiety disorder (ICD-10) Major depression, recurrent ?F33.9 - Major depressive disorder, recurrent, unspecified (ICD-10) Bilateral cataracts ?H26.9 - Unspecified cataract (ICD-10) 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) ?M47.816 - Spondylosis without myelopathy or radiculopathy, lumbar region (ICD-10) Incontinence of feces (11/21/23) ?R15.9 - Full incontinence of feces (ICD-10) 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/22/19) ?Z85.89 - Personal history of malignant neoplasm of other organs and systems (ICD-10) History of Lyme disease (11/22/19) ?Z86.19 - Personal history of other infectious and parasitic diseases (ICD-10) History of COVID-19 (10/27/21) ?Z86.16 - Personal history of COVID-19 (ICD-10) Hearing aid worn (10/27/21) ?Z97.4 - Presence of external hearing-aid (ICD-10) Osteoporosis (11/22/19) ?M81.0 - Age-related osteoporosis without current pathological fracture (ICD-10) Allergic rhinitis ?J30.9 - Allergic rhinitis, unspecified (ICD-10) Osteoarthritis of left hip ?M16.12 - Unilateral primary osteoarthritis, left hip (ICD-10) Sensorineural hearing loss (SNHL) of both ears ?H90.3 - Sensorineural hearing loss, bilateral (ICD-10) 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 ?L03.90 - Cellulitis, unspecified (ICD-10) ?A28.0 - Pasteurellosis (ICD-10) ?W55.01XA - Bitten by cat, initial encounter (ICD-10) Osteoporosis (2012) ?M81.0 - Age-related osteoporosis without current pathological fracture (ICD-10) Insomnia ?G47.00 - Insomnia, unspecified (ICD-10) Surgical History (Updated 01/23/25 @ 21:58 by Ed Walsh MD) History of total left hip replacement (03/04/24) ?Z96.642 - Presence of left artificial hip joint (ICD-10) H/O excision of ganglion cyst (04/03/97) ?Z98.890 - Other specified postprocedural states (ICD-10) History of laminectomy ?Z98.890 - Other specified postprocedural states (ICD-10) 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) ?Z96.641 - Presence of right artificial hip joint (ICD-10) Status post dilation and curettage (1989) ?Z98.890 - Other specified postprocedural states (ICD-10) History of microdiscectomy (2007) ?Z98.890 - Other specified postprocedural states (ICD-10) History of hysterectomy (1989) ?Z90.710 - Acquired absence of both cervix and uterus (ICD-10) Family History Father Depression Social History Narrative: Exercises regularly- 3-4/ week, walking, 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 , 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, 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 Non-smoker Social drinker What is your current living situation?: I presently have a place to live In the past 12 months, utilities in danger of being shut off: no In past 12 months, lack of transportation kept you from medical appts, meetings, work, or getting things needed for daily living: no In the past 12 mos, have been you worried that your food would run out before you had money to buy more?: never true In the past 12 mos, the food you bought just didn't last and you didn't have money to buy more?: never true Smoking Status: Never smoker Do you use any of these nicotine containing products: None Second hand tobacco smoke exposure: No How often do you have a drink containing alcohol: 4 or more times a week AUDIT-C Alcohol total score: 4 Non-prescribed substance use: denies use How often does anyone, including family, friends and others, physically hurt you: never How often does anyone, including family, friends and others, insult or talk down to you: never How often does anyone, including family, friends and others, threaten you with harm: never How often does anyone, including family, friends and others, scream or curse at you: never Meds Home Medications and Allergies Home Medications ?Medication ?Instructions ?Recorded ?Confirmed ?Type cetirizine 10 mg tablet (Zyrtec) 10 mg PO DAILY 03/04/24 01/21/25 History amlodipine 2.5 mg tablet 2.5 mg PO BID 01/21/25 01/26/25 History calcium carbonate 1,250 mg PO QDAY 01/21/25 01/21/25 History fluorouracil 5 % topical cream 1 applic topical BID 01/21/25 01/21/25 History gabapentin 100 mg capsule 300 mg PO QHS 01/21/25 01/26/25 History jufhfzpwnre-rdoxjcbed-uur C-Mn 500 1 cap PO QDAY 01/21/25 01/21/25 History mg-400 mg capsule (Glucosamine-Chondroitin Complex) lidocaine 4 % topical patch 1 patch topical BID PRN 01/21/25 01/21/25 History melatonin 3 mg tablet 3 mg PO QHS 01/21/25 01/21/25 History mirtazapine 15 mg tablet 15 mg PO QHS 01/21/25 01/26/25 History vtujturw-eah-vkuas ac 400 1 tab PO QDAY 01/21/25 01/21/25 History mcg-calcium carb 500 mg-vit K1 20 mcg tablet (Women's 50 Plus Multivitamin) olanzapine 5 mg disintegrating 2.5 mg PO QHS 01/21/25 01/21/25 History tablet omega 6-twx-xff-fish oil 1,200 mg 1 cap PO QDAY 01/21/25 01/21/25 History (144 mg-216 mg) capsule (Fish Oil) propranolol 20 mg tablet 20 mg PO BID 01/21/25 01/26/25 History sodium chloride 1 gram tablet 1,000 mg PO BID 01/21/25 01/21/25 History zoledronic acid 5 mg/100 mL in ea IV 01/21/25 01/21/25 History mannitol 5 %-water intravenous piggybck (Reclast) mirtazapine 7.5 mg tablet mg 01/26/25 History Allergies Allergy/AdvReac Type Severity Reaction Status Date / Time pollen extracts Allergy Intermediate Verified 01/21/25 14:43 Exam Const: Vital Signs, click to edit/add: Vital Signs - 24 hr 01/26/25 15:28 01/26/25 18:14 Temperature 97.3 F L Pulse Rate 73 Pulse Rate [Pulse Oximeter] 78 Respiratory Rate 16 16 Blood Pressure 113/65 Blood Pressure [Le ft Leg] 133/65 Pulse Oximetry 99 98 Oxygen Delivery Me thod Room Air Room Air Hospitalist - H&P: Result Labs Labs: Short CBC 01/26/25 Range/Units 16:15 WBC 7.14 (4.50-11.00) K/uL Hgb 9.9 L (12.0-16.0) gm/dL Hct 31.6 L (33.0-51.0) % Plt Count 489 H (140-440) K/uL BMP 01/26/25 16:15 Sodium 140 Potassium 4.5 Chloride 99 Carbon Dioxide 33 H BUN 22 Creatinine 0.7 Glucose 117 H Calcium 9.6 Urine 01/26/25 Range/Units 17:25 Urine Color Yellow (Yellow) Urine Appearance Clear (Clear) Urine pH 7.0 (5.0-8.5) Ur Specific [place] 1.015 (1.000-1.030) Urine Protein Negative (Negative) Urine Glucose (UA) Negative (Negative) Assessment and Plan Assessment and plan (1) Encephalopathy: Problem comment: -acute on chronic -structural subtype (amyloid angiopathy from dementia, recent bleed, new UTI, acute rib fracture and fall) -safety with nonpharmacological interventions, olanzapine IV titrated safely; aware of EPS; arrhythmias. -Poor prognosis for recovery Status: Acute (2) Fall at home: Problem comment: 01/25 - fall from standing height into dresser: rib fracture/bruises Status: Acute (3) Fracture of rib: Problem comment: Mildly displaced left lateral 8th rib fracture. Lidoderm patch, scheduled tylenol, Toradol IV Status: Acute (4) Acute UTI: Problem comment: cephalexin 500mg TID culture pending Status: Acute (5) Severe Alzheimer dementia with agitation: Problem comment: -progressive disease with significant set backs in Dec 2024 -medical management: atypical antidepressants, Remeron, celexa, melatonin -memory care 12/06 will be necessary Status: Acute (6) Nontraumatic cortical hemorrhage of right cerebral hemisphere: Problem comment: 12/25/24 - significant left sided field cut/neglect. CT head with right occipital-parietal hemorrhage with intraventricular extension - transferred from our ED to [facility] neuro ICU. 5 week stay. -thought likely to Leqembi Status: Acute (7) Spondylosis of lumbar region without myelopathy or radiculopathy: Problem comment: -chronic -lidoderm patch, gabapentin, scheduled tylenol, toradol Status: Acute (8) Generalized anxiety disorder: Problem comment: -continue celexa Status: Acute (9) Major depression, recurrent: Problem comment: continue celexa Status: Acute (10) Sensorineural hearing loss (SNHL) of both ears: Status: Acute
[2025-01-26 20:26] VITALS: BP 133/62; PULSE 77; RESP 16; TEMP 35.9; O2SAT 98
[2025-01-26] MEDS: SODIUM CHLORIDE 0.9 % (FLUSH) 10 ML SYRINGE 5 ML IVF (21:31)
[2025-01-26] MEDS: KETOROLAC 15 MG/ML inj IVP (21:34)
[2025-01-26] MEDS: ACETAMINOPHEN 650 MG TABLET ER 1300 MG PO (21:35)
[2025-01-26] MEDS: AMLODIPINE 5 MG TABLET 2.5 MG PO (21:36)
[2025-01-26] MEDS: MELATONIN 3 MG TABLET PO (21:36)
[2025-01-26] MEDS: GABAPENTIN 100 MG CAPSULE 300 MG PO (21:36)
[2025-01-26] MEDS: MIRTAZAPINE 15 MG TABLET 30 MG PO (21:36)
[2025-01-26] MEDS: PROPRANOLOL 20 MG TABLET PO (21:37)
[2025-01-26] MEDS: LIDOCAINE 5% PATCH 1 PATCH TRANSDERMA (21:37)
[2025-01-26 22:36] VITALS: PULSE 77; RESP 16; TEMP 36.3
[2025-01-27] MEDS: cephALEXin 500 MG CAPSULE PO ×4 (01:13→20:25)
[2025-01-27 03:00] VITALS: RESP 16; TEMP 36.4
[2025-01-27] MEDS: SODIUM CHLORIDE 0.9 % (FLUSH) 10 ML SYRINGE 5 ML IVF ×4 (03:29→21:31)
[2025-01-27] MEDS: OLANZapine 5 MG/ML inj IVP (03:29)
[2025-01-27] MEDS: KETOROLAC 15 MG/ML inj IVP (03:34)
--- NOTE | 2025-01-27 05:17 | PC.NURSE ---
Pt restless until approx 0430, at which time pt laying down in bed but still awake, she is up frequently. ambulating around room with and 1 Assist, tolerating activity fair, needs someone holding onto her at all times. incontinent of bladder. tolerating PO intake, swallowing oral medications without difficulty. Only indicators of pain and/or discomfort are pt rubbing her head and saying Ow during position changes. prn pain medications administered. occasionally replies yes/no to questions.
[2025-01-27 07:00] VITALS: RESP 16
--- NOTE | 2025-01-27 09:04 | PM.IMPN1 ---
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 -Poor prognosis for recovery Status: Acute (2) Fall at home: Problem details: 01/25 - fall from standing height into dresser: rib fracture/bruises Status: Acute (3) Fracture of rib: Problem details: Mildly displaced left lateral 8th rib fracture. Lidoderm patch, scheduled tylenol - 01/27 holding NSAID due to recent brain bleed, awaiting decision from on goals of care Status: Acute (4) Acute UTI: Problem details: cephalexin 500mg TID culture pending (Gram neg nelson) Status: Acute (5) Severe Alzheimer dementia with agitation: Problem details: -progressive disease with significant set backs in Dec 2024 -medical management: atypical antidepressants, Remeron, celexa, melatonin -memory care 12/06 will be necessary Status: Chronic (6) Nontraumatic cortical hemorrhage of right cerebral hemisphere: Problem details: 12/25/24 - significant left sided field cut/neglect. CT head with right occipital-parietal hemorrhage with intraventricular extension - transferred from our ED to [facility] neuro ICU. 5 week stay. -thought likely to Leqembi Status: Acute (7) Spondylosis of lumbar region without myelopathy or radiculopathy: Problem details: -chronic -lidoderm patch, gabapentin, scheduled tylenol Status: Chronic (8) Generalized anxiety disorder: Problem details: -continue celexa Status: Chronic (9) Major depression, recurrent: Problem details: continue celexa Status: Chronic (10) Sensorineural hearing loss (SNHL) of both ears: Status: Chronic Plan - Suspect patient will need increased care - SNF, await PT/OT evaluation. SW consulted for d/c planning. Time Spent With Patient Total time spent: Today I spent 50 minutes seeing the patient, discussion with the patient's , reviewing Expanse and EPIC notes/diagnostics/labs, discussing the care plan with our care team that includes social work, PT/OT, pharmacy, RT, [place] [facility] and documenting my impressions and plan in the medical record. Subjective Time Seen by Provider: 09:04 Date Seen: 01/27/25 Interval history: Gloria's , Abdifatah, was in the room with her this morning. He notes that Gloria has been sundowning since about a week after she had a bleed in her head. He does not think she had any sundowning prior to the bleed. He was under the impression that this was acute delirium and would eventually resolved as her brain healed from the stroke. During our discussion we talked about Alzheimer's dementia, hemorrhagic stroke, prognosis, quality of life, and the possibility of comfort cares. He was not yet ready to make a decision today about comfort cares, but demonstrated understanding that she will not return to her level of functioning that was present prior to stroke. He also demonstrated understanding that this is likely a more permanent condition and that she is unlikely to get much better than she currently is. He is wanting to explore rehab versus shelter versus memory care at this time. He told me that she did not get much sleep last night and just finally fell into a deep sleep around 3 or 4 in the morning. Exam Narrative: Exam Narrative: General: No acute distress. Soundly sleeping, did awaken while I was standing outside the room talking with Abdifatah, oriented only to self. No pallor. No jaundice. Oropharynx: Clear. Mucous membranes moist. Cardiovascular: Regular rate and rhythm. No murmurs, gallops, or rubs. Respiratory: Clear to auscultation bilaterally. No wheezes or crackles. Abdomen: Bowel sounds present. Soft, nondistended, nontender. Extremities: No lower extremity edema. Const: Vital Signs, click to edit/add: Vital Signs - 24 hr 01/26/25 15:28 01/26/25 18:14 01/26/25 20:26 Temperature 97.3 F L 96.6 F L Pulse Rate 73 Pulse Rate [Pulse Oximeter] 78 77 Respiratory Rate 16 16 16 Blood Pressure 113/65 Blood Pressure [Le ft Arm] 133/62 Blood Pressure [Le ft Leg] 133/65 Pulse Oximetry 99 98 98 Oxygen Delivery Me thod Room Air Room Air Room Air 01/26/25 22:36 01/26/25 22:36 01/27/25 03:00 Temperature 97.4 F L 97.5 F L Pulse Rate Pulse Rate [Pulse Oximeter] 77 Respiratory Rate 16 16 16 Blood Pressure Blood Pressure [Le ft Arm] Blood Pressure [Le ft Leg] Pulse Oximetry Oxygen Delivery Me thod Labs Labs: Laboratory Results - last 24 hr 01/26/25 01/26/25 01/26/25 15:58 16:15 17:25 WBC 7.14 RBC 3.39 L Hgb 9.9 L Hct 31.6 L MCV 93 MCH 29 MCHC 31 L RDW Coeff of Mayelin 14.3 Plt Count 489 H Neut % (Auto) 62.8 Lymph % (Auto) 24.4 [place] % (Auto) 7.7 Eos % (Auto) 3.5 Baso % (Auto) 0.6 Neut # (Auto) 4.49 Lymph # (Auto) 1.74 [place] # (Auto) 0.50 Eos # (Auto) 0.25 Baso # (Auto) 0.04 Abs Immat Gran (auto) 0.07 Imm/Tot Granulo (auto) 1.0 Sodium 140 Potassium 4.5 Chloride 99 Carbon Dioxide 33 H Anion Gap 8 BUN 22 Creatinine 0.7 Estimated Creat Clear 32.66 Estimated GFR 88 Glucose 117 H Lactate 1.1 Calcium 9.6 Urine Color Yellow Urine Appearance Clear Urine pH 7.0 Ur Specific [place] 1.015 Urine Protein Negative Urine Glucose (UA) Negative Urine Ketones Negative Urine Blood Negative Urine Nitrite Positive A Urine Bilirubin Negative Urine Urobilinogen 0.2 Ur Leukocyte Esterase Trace A Urine RBC 0-2 Urine WBC 0-2 Ur Squamous Epith Cells Few Urine Bacteria Many A POC Troponin I 0.00 L
--- NOTE | 2025-01-27 09:59 | NUTR.NU ---
RDn with nutrition screen related to underweight BMI and positive skin risk. Patient admitted with encephalopathy, recurrent falls, and UTI. Medical history significant for advanced dementia and recent brain bleed. Patient lives at home with . Current weight 99lb 8oz; height 5ft 2in; BMI 18.2 kg/m2. Per weight history, patient's weight has fluctuated between 98lbs to 105 lbs for a few years. MST score is 1, which indicates no risk. Current diet is Regular. No meal intakes yet at this time. Unsure of goals of care at this time. No nutrition interventions at this time with stable weight. RDN will continue to monitor and follow-up as appropriate.
[2025-01-27 10:30] VITALS: BP 121/78; PULSE 70; RESP 16; TEMP 36.4; O2SAT 95
[2025-01-27] MEDS: AMLODIPINE 5 MG TABLET 2.5 MG PO ×2 (11:09→20:25)
[2025-01-27] MEDS: PROPRANOLOL 20 MG TABLET PO ×2 (11:09→20:27)
[2025-01-27] MEDS: ACETAMINOPHEN 650 MG TABLET ER 1300 MG PO ×2 (11:09→20:26)
[2025-01-27 15:00] VITALS: BP 115/58; PULSE 68; RESP 18; TEMP 36.4; O2SAT 100
--- NOTE | 2025-01-27 17:03 | PC.SOCIAL ---
Discharge planning: curb worker met with pt's , Abdifatah, this afternoon to talk about discharge planning. Yuri states that he has hired overnight in home care through [facility] that comes from 8pm-8am. Then a day shift home health care physician from [facility] comes from 8am-12pm. Abdifatah has also hired a local private duty gas appliance servicer named Kimberli that the family has known for years who comes from 12pm-6/8pm at night. So, there are days that Abdifatah may be the only gas appliance servicer for his in the evening for two hours. Abdifatah states that the pt also has home care PT/OT through [facility] that was supposed to start today. Abdifatah is open to bringing his back home with all of these continued services/caretakers in place, but is also open to having her go to a facility. curb worker will consult with the following provider about this pt in morning rounds since this worker was not able to connect with the provider again this afternoon after meeting with the pt's . curb worker will discuss with the team/provider the pros and cons of the pt going home vs. going to a facility, seeing as the is open to both options. Social work to follow-up as needed.
--- NOTE | 2025-01-27 18:52 | PC.NURSE ---
End of shift [id number]: Pt resting upon initial assessment. Spoke with Siobhan SHAH regarding limited sleep of Pt, okayed by MD to await assessment until MD rounded. Medications also okayed to wait to given until patient awoken. VSS on RA. Pt saw therapies today. A1, GB, while holding both hands. Incontinent of bladder, did not tolerate purewick. Pills crushed in applesauce seemed to be successful. Indicators of pain from patient were stating Ow and grasping to the rib area. Nonverbal ques showed relief with reposition and warming blankets. Pt tolerating reg diet/fluids well. Appetite increased as the day went on. Pt appeared more talkative as well. Yes No answers were tolerated in the morning. More random words were spoken during dinner. 1:1 was needed during entirety of shift. Pt is resting in chair with call light in reach. JEFFREY Reynolds sitting at bedside.
[2025-01-27] MEDS: MIRTAZAPINE 15 MG TABLET 30 MG PO (20:23)
[2025-01-27] MEDS: GABAPENTIN 100 MG CAPSULE 300 MG PO (20:23)
[2025-01-27] MEDS: MELATONIN 3 MG TABLET PO (20:25)
[2025-01-27 20:28] VITALS: BP 105/57; PULSE 80; RESP 18; TEMP 36.6; O2SAT 94
[2025-01-27 22:50] VITALS: BP 133/72; PULSE 67; RESP 18; TEMP 36.8; O2SAT 97
[2025-01-28 03:05] VITALS: BP 141/67; PULSE 65; RESP 16; TEMP 36.7; O2SAT 98
[2025-01-28] MEDS: ACETAMINOPHEN 650 MG TABLET ER 1300 MG PO ×3 (05:57→22:43)
--- NOTE | 2025-01-28 07:39 | PC.NURSE ---
Pt is alert and oriented to self only. Pt unable to respond to questions appropriately, pt tends to do better with yes and no questions. Pt was up throughout night repositioning, fidgeting with brief, gown, and blankets. Pt is unable to rate pain but yells out ?Ow? with movements, pain managed with scheduled medications. Pt has difficulties with following prompts and commands, pt is a A2 pivot to chair. Pt slept 15-20 minutes intermittently throughout night. ?
--- NOTE | 2025-01-28 08:50 | REH.OT ---
Attempted to see Gloria for OT session this morning. She is in the recliner, meal in front of her, soundly asleep. NA informs, pt barely slept overnight, and has recently, finally fallen asleep. Will leave pt to sleep, and as able and appropriate, reattempt OT session later today, or tomorrow.
[2025-01-28 08:55] VITALS: BP 92/64; PULSE 87; RESP 16; TEMP 36.4; O2SAT 95
[2025-01-28] MEDS: cephALEXin 500 MG CAPSULE PO (08:57)
[2025-01-28] MEDS: SODIUM CHLORIDE 0.9 % (FLUSH) 10 ML SYRINGE 5 ML IVF ×2 (08:57→19:47)
--- NOTE | 2025-01-28 11:49 | PM.IMPN1 ---
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 -Poor prognosis for recovery Status: Acute (2) Fall at home: Problem details: 01/25 - fall from standing height into dresser: rib fracture/bruises Status: Acute (3) Fracture of rib: Problem details: Mildly displaced left lateral 8th rib fracture. Lidoderm patch, scheduled tylenol - 01/27 holding NSAID due to recent brain bleed, awaiting decision from on goals of care - 01/28 hoping Gloria might improve enough to rehab at some point Status: Acute (4) Acute UTI: Problem details: - Resistant to 1st gen cephalosporin, sens to 3rd gen. Treat with cefpodoxime x 3 days. Urine Culture* Final ML Organism 1 Escherichia coli Ur [place] Count >100,000 CFU/ml E coli [facility] RX --------- --- Ampicillin 4 S Ampicillin/Sulbactam <=2 S Cefazolin 16 R Cefepime <=0.12 S Ceftazidime <=0.5 S Ceftriaxone <=0.25 S Ciprofloxacin <=0.06 S Ertapenem <=0.12 S Gentamicin <=1 S Levofloxacin <=0.12 S * Meropenem 0.5 S Nitrofurantoin <=16 S Trimethoprim/Sulfamethoxazole <=20 S Piperacillin/Tazobactam <=4 S Status: Acute (5) Severe Alzheimer dementia with agitation: Problem details: -progressive disease with significant set backs in Dec 2024 -medical management: atypical antidepressants, Remeron, celexa, melatonin -memory care 12/06 will be necessary Status: Chronic (6) Nontraumatic cortical hemorrhage of right cerebral hemisphere: Problem details: 12/25/24 - significant left sided field cut/neglect. CT head with right occipital-parietal hemorrhage with intraventricular extension - transferred from our ED to [facility] neuro ICU. 5 week stay. -thought likely to [facility] Status: Acute (7) Spondylosis of lumbar region without myelopathy or radiculopathy: Problem details: -chronic -lidoderm patch, gabapentin, scheduled tylenol Status: Chronic (8) Generalized anxiety disorder: Problem details: -continue celexa Status: Chronic (9) Major depression, recurrent: Problem details: continue celexa Status: Chronic (10) Sensorineural hearing loss (SNHL) of both ears: Status: Chronic Plan - wants us to pursue placement. Needs SNF level care. SW consulted for d/c planning. Time Spent With Patient Total time spent: Today I spent 35 minutes seeing the patient, talking with the patient's at social services technician, reviewing [facility] and EPIC notes/diagnostics/labs, discussing the care plan with our care team that includes social work, PT/OT, pharmacy, RT, m[facility]p and documenting my impressions and plan in the medical record. Subjective Time Seen by Provider: 09:33 Date Seen: 01/28/25 Interval history: Gloria's condition is similar. She was up a lot overnight and is awake, but sleepy today. Her is hoping that she can be placed. Although he has almost 24/7 care for her arranged at home, he notes that it is still very difficult with her current rib fracture. I was in on part of the discussion he and LADARIUS Painter, were having this morning. Exam Narrative: Exam Narrative: General: No acute distress. Awake in bedside chair, Bill helping her brush her teeth. Smiles, responds to some commands, but not all. No pallor. No jaundice. Oropharynx: Clear. Mucous membranes moist. Cardiovascular: Regular rate and rhythm. No murmurs, gallops, or rubs. Respiratory: Clear to auscultation bilaterally. No wheezes or crackles. Abdomen: Bowel sounds present. Soft, nondistended, nontender. Extremities: No lower extremity edema. Const: Vital Signs, click to edit/add: Vital Signs - 24 hr 01/27/25 15:00 01/27/25 20:28 01/27/25 22:50 Temperature 97.6 F 97.9 F 98.2 F Pulse Rate [Pulse Oximeter] 68 80 67 Respiratory Rate 18 18 18 Blood Pressure [Le ft Arm] 115/58 L 105/57 L 133/72 Pulse Oximetry 100 94 97 Oxygen Delivery Me thod Room Air Room Air Room Air 01/28/25 03:05 01/28/25 08:55 Temperature 98.0 F 97.6 F Pulse Rate [Pulse Oximeter] 65 87 Respiratory Rate 16 16 Blood Pressure [Le ft Arm] 141/67 H 92/64 Pulse Oximetry 98 95 Oxygen Delivery Me thod Room Air Room Air
--- NOTE | 2025-01-28 13:04 | REH.OT ---
Attempted to see Gloria this afternoon, for 2nd attempt at OT session. Patient sleeping soundly, sister in law present. Pt did not rouse to OT greeting, repeatedly and with shoulder and hand rub with repeat greeting. Will resume efforts for OT 01/28 as appropriate and as schedule allows.
[2025-01-28 15:00] VITALS: PULSE 87; RESP 16
[2025-01-28] MEDS: LIDOCAINE 5% PATCH 1 PATCH TRANSDERMA (15:46)
--- NOTE | 2025-01-28 17:19 | PC.SOCIAL ---
Addendum entered by SAFIA Novoa 01/28/25 17:56: Discharge planning: workers compensation claims assistant also sent the referral to Vini with [employer] for review to see if any of her facilities could accommodate the pt's needs. Social work to follow-up as needed. Original Note: Discharge planning: This social human services assistants and the provider on duty met with pt's , Abdifatah, this morning to talk about discharge planning. Pt is medically ready for discharge. Today pt's wanted this worker to look for a facility for his to go to, but shared again that he can take her home if that is his only option. workers compensation claims assistant did explain to Abdifatah that most facilities cannot provide 1:1 supervision that the pt is needing right now, but he is able to provide that for her at home with all of the hired care givers that he has hired. workers compensation claims assistant did talk to Luciana Ortega at [facility] #[phone] and she clarified that up until the pt went into the hospital they were doing 10pm-8am overnight shifts and the requested more hours, so they were going to start the 8pm-8am shift time this Monday the , but Luciana did say they could start that sooner if it is needed. Pt's overnight in home care provider shift was canceled for tonight since the pt will stay in the hospital tonight. Luciana did say that the overnight shifts for the pt for Monday and of this week are still open, but they are working on trying to find staff to fill those shifts if pt does discharge tomorrow(Monday). workers compensation claims assistant checked with Lorie at [facility] yesterday and she shared that they do not have any openings on their [facility] unit right now. workers compensation claims assistant checked with Cindi Pepe RN at [facility] and they do not have any beds there right now either. workers compensation claims assistant checked with [facility] and they have openings. workers compensation claims assistant sent them the referral and they shared they can meet pt's care needs, but they are concerned with pt's 1:1 status, so they would like to do an in-person assessment with the pt in the hospital tomorrow(Monday) at 11am with their RN Tonya. workers compensation claims assistant has been in contact with Farhana at [facility] #[phone](her work cell phone/best way to contact). Farhana is the Grievance And Appeals Specialist. When this social human services assistants spoke to Bill about this possible opportunity with [facility] in [place], he shared he has toured the facility before and was concerned that the pt would not have a bathroom in her room. workers compensation claims assistant left a message with Farhana asking if the rooms there have their own bathroom, but did not hear back before the end of the day. Pt's is fine with Tonya from [facility] coming to the hospital to do the assessment tomorrow, but again shared the concern about the pt not having her own bathroom. workers compensation claims assistant received an email back from Cindi Pepe at [facility] this evening stating they may have a room for the pt and that Leni can come to the hospital tomorrow morning to assess the pt, as well. Social work to follow-up as needed.
[2025-01-28 19:00] VITALS: BP 115/74; PULSE 80; RESP 16; TEMP 36.4; O2SAT 94
[2025-01-28] MEDS: MELATONIN 3 MG TABLET PO (19:39)
[2025-01-28] MEDS: AMLODIPINE 5 MG TABLET 2.5 MG PO (19:39)
[2025-01-28] MEDS: PROPRANOLOL 20 MG TABLET PO (19:40)
[2025-01-28] MEDS: MIRTAZAPINE 15 MG TABLET 30 MG PO (19:40)
[2025-01-28] MEDS: GABAPENTIN 300 MG CAPSULE PO (19:40)
[2025-01-28] MEDS: CEFPODOXIME PROXETIL 200 MG TABLET PO (19:41)
--- NOTE | 2025-01-29 00:37 | PC.NURSE ---
Gloria is sitting in chair, slowly moving legs and arms around. No s/sx distress. Pleasantly carries on conversation with self intermittently. Needs gentle redirection at times. Picks pillows up from chair and drops them to floor. Slowly starts chewing on wristband. When redirected, Don't bite that, we don't want you to hurt your teeth has appropriate responses, No, I don't want that either. No nonverbal indicators of pain. Alert to self only. Repositioned in chair multiple times using pillows to offset various pressure points.
--- NOTE | 2025-01-29 02:33 | PC.NURSE ---
At approx 0130 Gloria wanted to stand and walk. Walked approx 40 feet, tolerating activity well. Became agitated looking for her closest, makeup, and clothing. Verbalized wanting to find her car. Pushed patient around in W/C which seemed to calm her. Able to lie down in bed around 0150. Enjoys warm blankets. Requesting to find Grace and morning newspaper in AM.
--- NOTE | 2025-01-29 03:06 | PC.NURSE ---
Rested for about an hour and now sat up and ate sandwich/drank Coke. Pleasant and cooperative.
--- NOTE | 2025-01-29 05:03 | PC.NURSE ---
Continues to sleep off and on. Large incont urine x1. Repositioned.
[2025-01-29] MEDS: ACETAMINOPHEN 650 MG TABLET ER 1300 MG PO ×2 (07:19→15:59)
[2025-01-29 10:50] VITALS: PULSE 74; RESP 16
[2025-01-29 10:53] VITALS: BP 109/65; PULSE 74; RESP 16; TEMP 36.4; O2SAT 97
[2025-01-29] MEDS: CEFPODOXIME PROXETIL 200 MG TABLET PO ×2 (11:12→21:22)
[2025-01-29] MEDS: PROPRANOLOL 20 MG TABLET PO ×2 (11:13→21:22)
[2025-01-29] MEDS: AMLODIPINE 5 MG TABLET 2.5 MG PO ×2 (11:13→21:20)
[2025-01-29] MEDS: SODIUM CHLORIDE 0.9 % (FLUSH) 10 ML SYRINGE 5 ML IVF ×2 (11:14→21:38)
--- NOTE | 2025-01-29 12:32 | PC.SOCIAL ---
Addendum entered and electronically signed by Annemarie Andrade LCSW 01/29/25 14:58: LADARIUS called Lesly at [facility] and left a vm requesting call back. SW secure emailed referral to Lesly. SW to follow-up on 01/30. Original Note: Discharge Planning: SW received voicemail from patient's requesting a call back. SW received voicemail from Farhana at [facility] who updated that the room for patient does not have a private bath, as those rooms are full right now. SW called [facility], Cindi, to determine when their RN will come out for an assessment. Cindi states that Leyla already came out and that they will review the case at 11:00 and then follow-up with SW. SW left a voicemail for patient's requesting a call back. SW spoke with patient's and updated that [facility] did come out to evaluate patient and that they will review and SW will follow-up with outcome. SW provided update about bathroom at [facility]. expressed that he does not want to go forward with [facility] at this time as he doesn't feel comfortable with no bathroom, but did not like the environment to begin with when he visited someone there. states that he has called [facility] and they have placement for patient. SW asked if she should send clinicals and said not yet as he needs to talk with them again. reports that it seems they will allow him to fill nursing gaps that they can't cover. SW and to reconnect after update from [facility]. SW received call from [facility] Leyla who states they do not have a bed for patient due to level of dementia and need for continual monitoring. Leyla reports that she will follow-up with patient's . LADARIUS spoke with patient's who states he heard from [facility]. SW asked if she can send clinicals to [facility]. consents to sending the information. expresses that he will connect with staff there and start working on everything.
--- NOTE | 2025-01-29 13:21 | P.IMPN_ITS ---
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 - Poor prognosis for recovery Status: Acute (2) Fall at home: Problem details: 01/25 - fall from standing height into dresser: rib fracture/bruises Status: Acute (3) Fracture of rib: Problem details: Mildly displaced left lateral 8th rib fracture. Lidoderm patch, scheduled tylenol - 01/27 holding NSAID due to recent brain bleed, awaiting decision from on goals of care - 01/28 hoping Gloria might improve enough to rehab at some point Status: Acute (4) Acute UTI: Problem details: - Resistant to 1st gen cephalosporin, sens to 3rd gen. Treat with cefpodoxime x 3 days. Urine Culture* Final ML Organism 1 Escherichia coli Ur [place] Count >100,000 CFU/ml E coli [facility] RX --------- --- Ampicillin 4 S Ampicillin/Sulbactam <=2 S Cefazolin 16 R Cefepime <=0.12 S Ceftazidime <=0.5 S Ceftriaxone <=0.25 S Ciprofloxacin <=0.06 S Ertapenem <=0.12 S Gentamicin <=1 S Levofloxacin <=0.12 S * Meropenem 0.5 S Nitrofurantoin <=16 S Trimethoprim/Sulfamethoxazole <=20 S Piperacillin/Tazobactam <=4 S Status: Acute (5) Severe Alzheimer dementia with agitation: Problem details: -progressive disease with significant set backs in Dec 2024 -medical management: atypical antidepressants, Remeron, celexa, melatonin -memory care 12/06 will be necessary Status: Chronic (6) Nontraumatic cortical hemorrhage of right cerebral hemisphere: Problem details: 12/25/24 - significant left sided field cut/neglect. CT head with right occipital- parietal hemorrhage with intraventricular extension - transferred from our ED to [facility] neuro ICU. 5 week stay. -thought likely to [facility] Status: Acute (7) Spondylosis of lumbar region without myelopathy or radiculopathy: Problem details: -chronic -lidoderm patch, gabapentin, scheduled tylenol Status: Chronic (8) Generalized anxiety disorder: Problem details: -continue celexa Status: Chronic (9) Major depression, recurrent: Problem details: continue celexa Status: Chronic (10) Sensorineural hearing loss (SNHL) of both ears: Status: Chronic Plan - awaiting placement, appreciate input from Social Work team - updated by phone, questions answered Subjective Date Seen: 01/29/25 Interval history: Gloria was admitted to the hospital on 01/26 for acute delirium and increased falls in the setting of known dementia. Since admission, workup has revealed an E Coli UTI and L lateral 8th rib fracture. On Cefpodoxime, scheduled APAP, Lidocaine patch. working with SW team for placement. He has had some issues with his hip recently, was in ER last night. This morning, patient specifically denies pain for me this morning. Exam Narrative: Exam Narrative: Sitting comfortably in bedside chair, eating breakfast. Pulse palpates as RRR Breathing comfortably No skin abnormalities on exposed skin Const: Vital Signs, click to edit/add: Vital Signs - 24 hr 01/28/25 15:00 01/28/25 19:00 01/29/25 10:50 Temperature 97.5 F L Pulse Rate [Pulse Oximeter] 87 80 74 Respiratory Rate 16 16 16 Blood Pressure [Le ft Arm] 115/74 Pulse Oximetry 94 Oxygen Delivery Me thod Room Air 01/29/25 10:53 Temperature 97.6 F Pulse Rate [Pulse Oximeter] 74 Respiratory Rate 16 Blood Pressure [Le ft Arm] 109/65 Pulse Oximetry 97 Oxygen Delivery Me thod Room Air
[2025-01-29] MEDS: LIDOCAINE 5% PATCH 1 PATCH TRANSDERMA ×2 (15:59→16:00)
--- NOTE | 2025-01-29 18:05 | PC.NURSE ---
Patient slept from [id number] this shift. Pt is incontinent of urine. Patient has a lidocaine patch on left ribs. Patient takes pills crushed in applesauce. Pt ambulates SBA/GB/W. Tylenol given for pain. Update given to .
[2025-01-29 19:00] VITALS: BP 110/60; RESP 181; TEMP 37
[2025-01-29] MEDS: MIRTAZAPINE 15 MG TABLET 30 MG PO (21:20)
[2025-01-29] MEDS: GABAPENTIN 300 MG CAPSULE PO (21:22)
[2025-01-29] MEDS: MELATONIN 3 MG TABLET PO (21:22)
[2025-01-30] MEDS: ACETAMINOPHEN 650 MG TABLET ER 1300 MG PO ×3 (01:58→16:00)
[2025-01-30] MEDS: PROPRANOLOL 20 MG TABLET PO ×2 (08:48→21:26)
[2025-01-30] MEDS: CEFPODOXIME PROXETIL 200 MG TABLET PO ×2 (08:48→21:26)
[2025-01-30] MEDS: SENNOSIDES/DOCUSATE TABLET 1 TAB PO (08:49)
[2025-01-30] MEDS: SODIUM CHLORIDE 0.9 % (FLUSH) 10 ML SYRINGE 5 ML IVF ×2 (08:49→21:26)
[2025-01-30] MEDS: AMLODIPINE 5 MG TABLET 2.5 MG PO ×2 (08:49→21:26)
[2025-01-30 09:00] VITALS: BP 110/67; PULSE 92; RESP 18; TEMP 36.6; O2SAT 97
--- NOTE | 2025-01-30 11:48 | PM.IMPN1 ---
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 Lidoderm patch, scheduled tylenol - 01/27 holding NSAID due to recent brain bleed, awaiting decision from on goals of care - 01/28 hoping Gloria might improve enough to rehab at some point Status: Acute (4) Acute UTI: Problem details: - per sensitivities, treating with 3 days of Cefpodoxime (01/28-01/31) Status: Acute (5) Severe Alzheimer dementia with agitation: Problem details: - progressive disease with significant setback in Dec 2024 (bleed, presumably iatrogenic) - medical management: redirection, Remeron, Neurontin at - awaiting placement Status: Chronic (6) Nontraumatic cortical hemorrhage of right cerebral hemisphere: Problem details: - 12/25/24 - significant L sided field cut/neglect. CT: R occipital-parietal hemorrhage with intraventricular extension - transferred from [facility] to [facility] neuro ICU, 5 wk stay - thought likely to [facility] Status: Acute (7) Spondylosis of lumbar region without myelopathy or radiculopathy: Problem details: -chronic -lidoderm patch, gabapentin, scheduled tylenol Status: Chronic (8) Generalized anxiety disorder: Problem details: - not currently or recently on an SSRI or SNRI (was on Sertraline in the past, also Celexa per chart review) Status: Chronic Plan - per above - awaiting safe d/c plan/placement Subjective Date Seen: 01/30/25 Interval history: Gloria was admitted to the hospital on 01/26 for acute delirium and increased falls in the setting of known progressive dementia. Noted to have a Urine culture + for E Coli, in addition to a mildly displaced L 8th lateral rib fracture. On Cefpodoxime, scheduled APAP, Lidocaine patch. No pain when at rest. Tolerating po intake. Ambulating. working with team for placement. Exam Narrative: Exam Narrative: Gloria is sitting comfortably in bedside chair, nontoxic, finishing breakfast. CV: RRR, no M/R/G R: LCTA bilaterally without wheezing Extremities are thin, no concerning edema Exposed skin without concerning lesions Const: Vital Signs, click to edit/add: Vital Signs - 24 hr 01/29/25 19:00 01/30/25 09:00 Temperature 98.6 F 98 F Pulse Rate [Pulse Oximeter] 92 Respiratory Rate 181 H 18 Blood Pressure [Le ft Arm] 110/60 110/67 Pulse Oximetry 97 Oxygen Delivery Me thod Room Air
[2025-01-30] MEDS: polyethylene glycoL 3350 17 GM PACK PO (18:20)
--- NOTE | 2025-01-30 18:59 | PC.NURSE ---
Shift Summary: Patient oriented only to self. Requiring 1:1NAR throughout shift due to impulsiveness. Pain managed with Aqua-k pad and repositioning. Has denied pain most of shift. Increased restlessness when is not in room. Able to redirect patient and reorient, use of fidget toys as needed. Able to walk in halls today with 2 staff assist, patient does not use walker properly and it is safer to have staff hold her hands/use gait belt. Needs cueing while ambulating. Continues to be incontinent of bladder. Given senna and miralax today, see MAR. Per patient has BM every 2-3 days at baseline. Abdomen slightly firm, patient denies pain with palpation, patient passing gas throughout shift.
[2025-01-30 19:52] VITALS: BP 123/57; PULSE 81; RESP 18; TEMP 36.3; O2SAT 96
[2025-01-30] MEDS: MELATONIN 3 MG TABLET PO (21:26)
[2025-01-30] MEDS: MIRTAZAPINE 15 MG TABLET 30 MG PO (21:26)
[2025-01-30] MEDS: GABAPENTIN 300 MG CAPSULE PO (21:26)
[2025-01-31] MEDS: LIDOCAINE 5% PATCH 1 PATCH TRANSDERMA (01:12)
[2025-01-31] MEDS: ACETAMINOPHEN 650 MG TABLET ER 1300 MG PO ×3 (02:00→17:49)
--- NOTE | 2025-01-31 06:45 | PC.NURSE ---
[id number]: Patient with dementia alert to self only. Large incontinent BM overnight. Lidocaine patch applied to L. lateral ribs for pain. A1-2. Restless on and off during noc. Redirectable. Eating and voiding.
[2025-01-31 08:44] VITALS: BP 111/73; PULSE 92; RESP 18; TEMP 36.9; O2SAT 98
[2025-01-31 08:45] VITALS: PULSE 92; RESP 18
[2025-01-31] MEDS: PROPRANOLOL 20 MG TABLET PO ×2 (08:47→21:30)
[2025-01-31] MEDS: AMLODIPINE 5 MG TABLET 2.5 MG PO ×2 (08:47→21:29)
[2025-01-31] MEDS: SODIUM CHLORIDE 0.9 % (FLUSH) 10 ML SYRINGE 5 ML IVF ×2 (08:47→21:30)
[2025-01-31] MEDS: CEFPODOXIME PROXETIL 200 MG TABLET PO (08:47)
--- NOTE | 2025-01-31 09:18 | P.DS_ITS ---
DS: Providers Provider Date Seen: 01/31/25 Date of admission: 01/26/25 20:28 Primary care physician: Ed Walsh MD Admitting Clinician: Silvana Hurst MD Consults: 01/26/25 20:42 Consult to Occupational Therapy [CONS] Routine Comment: Reason(s) for OT Consult:: Evaluate and Treat Any Restrictions?:: No Restrictions Consult to Physical Therapy [CONS] Routine Comment: Reason(s) for PT Consult:: Evaluate and Treat Any Restrictions?:: No Restrictions Consult to Systems Test Technician [CONS] Routine Comment: Reason for Consult:: Social Service Consult Attending Physician on discharge: Lucina Varghese MD Date of Discharge: 01/31/25 DS: Diagnosis Discharge Diagnosis (1) Encephalopathy: Status: Acute Problem details: - acute on chronic - likely combination of multiple factors: dementia, delirium, recent bleed (admitted to [facility] on 12/25/24 for 5 weeks), new UTI, acute rib fracture and fall - labs reassuring, no fevers or evidence of acute infection - baseline by hospital day 2 (2) Fall at home: Status: Acute Problem details: 01/25 - fall from standing height into dresser: rib fracture/bruises (3) Fracture of rib: Status: Acute Problem details: - Mildly displaced left lateral 8th rib fracture. - pain adequately managed with Lidoderm patch, scheduled APAP (4) Acute UTI: Status: Acute Problem details: - per sensitivities, treated with 3 days of Cefpodoxime (01/28-01/31) (5) Severe Alzheimer dementia with agitation: Status: Chronic Problem details: - progressive disease with significant setback in Dec 2024 (bleed, presumably iatrogenic) - medical management: redirection, Remeron, Neurontin at (6) Nontraumatic cortical hemorrhage of right cerebral hemisphere: Status: Acute Problem details: - 12/25/24 - significant L sided field cut/neglect. CT: R occipital-parietal hemorrhage with intraventricular extension - transferred from [facility] to [facility] neuro ICU, 5 wk stay - thought likely to Leqembi (7) Spondylosis of lumbar region without myelopathy or radiculopathy: Status: Chronic Problem details: - chronic - Lidoderm patch, gabapentin, scheduled Tylenol (8) Generalized anxiety disorder: Status: Chronic DS: Summary Hospital Course Hospital Course: Gloria was admitted to the hospital on 3/9 for acute delirium and increased falls in the setting of known progressive dementia. Noted to have a Urine culture + for E Coli, in addition to a mildly displaced L 8th lateral rib fracture. UTI treated with Cefpodoxime. Rib fracture pain treated with scheduled APAP, Lidocaine patch. No pain when at rest. Tolerating po intake. Ambulating with our PT/OT teams. worked with SW teams for placement; ultimately decided to go home with 12/06 caregivers. Time Spent with Patient Time attestation: Total time spent providing and/or coordinating discharge services: Time spent: Greater than 30 minutes Exam Narrative: Exam Narrative: Sitting comfortably in bedside chair, nontoxic Pulse palpates RRR Breathing comfortably Extremities thin Dementia noted, + redirectable Const: Vital Signs, click to edit/add: Vital Signs - 24 hr 01/30/25 19:52 01/31/25 08:44 Temperature 97.3 F L 98.4 F Pulse Rate [Pulse Oximeter] 81 92 Respiratory Rate 18 18 Blood Pressure [Le ft Arm] 123/57 L 111/73 Pulse Oximetry 96 98 Oxygen Delivery Me thod Room Air Discharge Plan Discharge Disposition: Home, Self-Care Date of Admission: 01/26/25 20:28 Attending Provider on Discharge: Lucina Varghese Primary Care Provider: Ed Walsh Condition: Stable Anticipated Discharge Date/Time: 01/31/25 10:00 Discharge Medications: New acetaminophen 650 mg Tablet Extended Release 1,300 mg PO Q8H Qty: 20 0RF Continued lidocaine 4 % adhesive patch,medicated 1 patch topical BID PRN mirtazapine 15 mg tablet 15 mg PO QHS olanzapine 5 mg tablet,disintegrating 2.5 mg PO QHS Rx Instructions: at bedtime if needed for sleep or agitation propranolol 20 mg tablet 20 mg PO BID gabapentin 100 mg capsule 300 mg PO QHS omega 3-pdo-dqm-fish oil [Fish Oil] 1,200 (144-216) mg capsule 1 cap PO QDAY melatonin 3 mg tablet 3 mg PO QHS Women's 50 Plus Multivitamin 400 mcg-500 mg calcium-20 mcg tablet 1 tab PO QDAY fluorouracil 5 % cream 1 applic topical BID Rx Instructions: APPLY A SMALL AMOUNT TO AFFECTED AREA TWICE A DAY TO HANDS AND NOSE FOR UP TO 2 WEEKS cetirizine [Zyrtec] 10 mg tablet 10 mg PO DAILY PRN Discontinued amlodipine 2.5 mg tablet 2.5 mg PO BID acetaminophen 500 mg capsule 500 - 1,000 mg PO Q6H MDD 4000mg PRNQty: 100 0RF Discharge Orders: Discharge Order (Routine); Ordered 01/31/25 Ordered By: Lucina Varghese Patient Education: Acetaminophen (By mouth), Urinary Tract Infection in Older Adults (DC) Additional Instructions: Medication changes: - increase Tylenol to 1300mg (buy a bottle of 650mg tablets and take TWO every 8 hours) around the clock for the next 7-10 days - STOP Amlodipine (this is a blood pressure medication and Gloria's blood pressure has been on the low side here, we don't want the blood pressure to be low and increase fall risk) For followup: You can either see Dr. Walsh in 7-10 days or see the provider that rounds at [facility]. Activity Level: No strenuous activity Activity Detail: should have someone walking with her Diet Detail: as tolerated Follow Up Appointments: Ed Walsh MD [Primary Care Provider] - 02/11/25 12:45 pm ([facility] for follow-up.) Forms: [employer] Info Instructions
[2025-01-31 15:00] VITALS: RESP 18
--- NOTE | 2025-01-31 15:27 | PC.SOCIAL ---
Addendum entered by SAFIA Novoa 01/31/25 16:12: Discharge planning: Pt's states that his appeal case number is [id number]. Social work to follow-up as needed. Addendum entered by SAFIA Novoa 01/31/25 15:54: Discharge planning: Clarification to below note: [facility] is stating that they can most likely deliver the hospital bed to pt's house on Monday02/03/2025. Social work to follow-up as needed. Original Note: Discharge planning: Pt's , Abdifatah, filed an appeal for pt's discharge, as the pt was discharged this morning by the provider on duty. The provider on duty called the and informed him via phone that the pt was being discharged and he then filed the appeal. Pt's was provided with another copy of The Important Message from Medicare form by this worker during our meeting. Pt's was also provided with an informational sheet about pt's appeal that was provided to this worker from [employer] to give to pt's during our meeting. sort worker met with pt's this morning at length and assisted him with several requests for help that he had. Pt's requested that this worker send a referral for a hospital bed to [facility] out of [place]. Pt already had a wheelchair and bedside commode from there. sort worker spoke to the client representative on duty at [facility] who stated they would most likely be able to deliver a hospital bed to the pt's home on Monday01/31/2025. All the needed information was faxed to [facility] at fax number #[phone]. [facility] phone number is #[phone]. Before meeting with pt's this worker had heard that the wanted a hospital bed and had sent a referral to [facility] in [place] #[phone]/fax #[phone]. [facility] had stated that they would not be able to deliver the bed until Monday or Monday of next week. This worker canceled the referral to [facility] for the hospital bed since [facility] stated that they would be able to deliver the bed sooner. sort worker asked the pt's what this worker should tell [facility] and he shared that he would talk to them. sort worker let Lesly at [facility] know that pt's plans to follow-up with them about the room they offered the pt to move into on Monday of next week. Pt's , Abdifatah, stated that he plans to take the pt home for awhile before placing her into a facility. Pt's continued to state during the meeting that he felt he did not have his house set-up safely enough for his to return home and he needed more time to prepare for that and that is why he filed the appeal with the 's discharge. Pt's also said that he talked with [facility] who was providing PT/OT home care services before the pt admitted to the hospital earlier this week and they shared they will need a resumption of care order sent to start back up services. [facility] can also obtain resumption of care orders from patient's PCP, but this neonatal social worker will make sure that the resumption orders get sent when pt actually leaves the hospital. Pt's also asked about non-emergent EMS transportation home when the pt actually discharges so that EMS can just bring the pt in and the doesn't have to worry about the stairs into the house. Pt's asked if hospital staff could see if pt's insurance would cover the cost of the transportation. sort worker explained that we will try, but to pay for it if insurance doesn't cover it would be $134.00([id number]= 134). Pt's willingly signed the non-emergent EMS wheelchair transportation form, but still wants hospital staff to try and get it covered by pt's insurance. Social work to follow-up as needed.
--- NOTE | 2025-01-31 15:47 | PC.SOCIAL ---
Discharge planning/from 01/30/2025: SW met with patient's . Patient's had questions about a referral being sent to [facility] as he called them last night and they stated they have opening that she may fit, but they would need a referral sent from SW. Patient's states that he is aware there isn't room in the [facility], as LADARIUS Madina, had discussed this with him earlier in the week. SW confirmed that a referral could be sent to [facility] for them to review for other areas. SW sent referral. SW discussed referral to [facility] and that there has not been an answer from the RN to determine they can meet her needs. states that he spoke with them and that they need 1 year of medical records to review. had a [facility] DAVID that SW assisted in filling out. SW explained that the request would have to go through medical records for that volume of notes. expressed understanding, but also frustration that it would take a couple of weeks for that. Patient's had questions regarding what happens when a patient is medically ready regarding patient responsibility for paying and cost of care. SW explained that she would need to get someone that could answer these questions and come back. Patient's did express that he would feel comfortable if he had to take her home for a few days, but that he couldn't take her long-term. reports that he needs to get a hospital bed for [facility] and reports that he has medical companies he is established with and will reach out to them. SW suggested reaching out to them soon as it can sometimes take a couple of days to get things situated. LADARIUS spoke with Lesly at [facility] to see if there was a determination on whether they could accept the patient or not. Lesly reviewed the referral and states that she would be able to accept her on Monday. Lesly states that admissions will reach out to the . SW inquired about needing a year of medical notes. Lesly says this is needed, but will not be a barrier to discharge. Lesly reports that spoke with the about this and wanted him to sign DAVID's when he was there, but instead stated he would get them from the hospital himself. SW informed that he should sign [facility] forms to get these instead of going through the hospital as the PCP is not inpatient. Lesly reports she will inform of this. LADARIUS met with patient's with UR RN, Melanie to answer questions that the had. SW first asked if had heard [facility] [place] and he states no. SW explained that she had been updated that they accepted her and can take her Monday. Melanie then spoke to the fact that because the patient is medically ready and she that there is a safe plan for patient to discharge home and then to [facility] on Monday that we would need to move forward with the discharge. then discussed that while he does have nursing for her at home and it is technically safe and has another chaser helper for other times, he feels that he still needs to be there and help and he feels unable to with his hip condition. was able to reflect that maybe he doesn't actually need to help. SW clarified with that it sounds like he does still feel overall he has a safe discharge plan, but it is not his ideal plan, confirmed. did mention that there could be a day where a RN calls and they aren't able to find coverage and then it may fall to him if his other private wilton weaver couldn't come. states all three of his kids live out of state and aren't able to come this weekend. Melanie discussed the appeal process with if he disagrees with the discharge and showed him the number and form he can reference if he would like to appeal. asked about the steps a couple of times and Melanie walked him through the process and answered all of his questions. had no further questions at this time. Initialized on 01/30/25 15:20 - END OF NOTE
--- NOTE | 2025-01-31 18:24 | PC.NURSE ---
End of Shift ([id number]): Patient cooperative with cares. VSS, afebrile. Patient has denied pain this shift. Patient seems to be resting comfortably in the chair. Tolerating regular diet. Patient had a small incontinent BM this shift.?1:1 JEFFREY throughout the shift due to impulsiveness.?2A handheld with gait belt. Patient takes pills crushed in applesauce.
[2025-01-31 20:00] VITALS: BP 116/65; PULSE 86; RESP 18; TEMP 36.5; O2SAT 94
[2025-01-31] MEDS: GABAPENTIN 300 MG CAPSULE PO (21:29)
[2025-01-31] MEDS: MIRTAZAPINE 15 MG TABLET 30 MG PO (21:30)
[2025-01-31] MEDS: MELATONIN 3 MG TABLET PO (21:30)
[2025-01-31 23:00] VITALS: PULSE 86; RESP 18
[2025-02-01] MEDS: LIDOCAINE 5% PATCH 1 PATCH TRANSDERMA (01:56)
[2025-02-01] MEDS: ACETAMINOPHEN 650 MG TABLET ER 1300 MG PO ×3 (02:07→17:55)
--- NOTE | 2025-02-01 06:31 | PC.NURSE ---
End of shift note [id number]: Pt unable to state name, birthday, place, time or situation due to baseline dementia. Possible pain treated with scheduled Tylenol and PRN Lidocaine patch along with repositioning and warm blankets. Pt has remained on 1:1 with JEFFREY due to impulsiveness. Pt slept part of shift in bed and part of shift in recliner. Pills crushed and administered in applesauce. IV to R AC patent and SL. Pt has been afebrile and on RA throughout the shift. VSS. Pt transferring with assist of 2 with hand hold using gait belt and walker available. Pt incontinent of urine and was continent of bowel last evening using BSC. Call light within reach though pt unable to use or express needs due to baseline dementia.
[2025-02-01 07:00] VITALS: BP 140/69; PULSE 72; RESP 16; TEMP 36.6; O2SAT 94
[2025-02-01] MEDS: SODIUM CHLORIDE 0.9 % (FLUSH) 10 ML SYRINGE 5 ML IVF ×2 (09:12→20:41)
[2025-02-01] MEDS: AMLODIPINE 5 MG TABLET 2.5 MG PO (09:12)
[2025-02-01] MEDS: PROPRANOLOL 20 MG TABLET PO ×2 (09:12→20:41)
--- NOTE | 2025-02-01 13:22 | PM.IMPN1 ---
Progress Note: A&P Assessment and plan (1) Encephalopathy: Problem details: - acute on chronic - likely combination of multiple factors: dementia, delirium, recent bleed (admitted to [facility] on 12/25/24 for 5 weeks), new UTI, acute rib fracture and fall - labs reassuring, no fevers or evidence of acute infection - baseline by hospital day 2 Status: Acute (2) Fall at home: Problem details: - 01/25: fall from standing height into dresser: rib fracture/bruises Status: Acute (3) Fracture of rib: Problem details: - Mildly displaced left lateral 8th rib fracture - pain adequately managed with Lidoderm patch, scheduled APAP Status: Acute (4) Acute UTI: Problem details: - per sensitivities, treated with 3 days of Cefpodoxime (01/28-01/31) Status: Acute (5) Severe Alzheimer dementia with agitation: Problem details: - progressive disease with significant setback in Dec 2024 (bleed, presumably iatrogenic) - medical management: redirection, Remeron, Neurontin at Status: Chronic (6) Nontraumatic cortical hemorrhage of right cerebral hemisphere: Problem details: - 12/25/24 - significant L sided field cut/neglect. 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 Noted to have a Urine culture + for E Coli, in addition to a mildly displaced L 8th lateral rib fracture. UTI has been treated with 3 days of Cefpodoxime. Rib fracture pain treated with scheduled APAP, Lidocaine patch. No pain when at rest. Tolerating po intake. Ambulating with our PT/OT teams. worked with SW teams for placement; ultimately had planned to go home with 24/7 caregivers. Discharge completed 01/31, appealed discharge and we are awaiting further decisions from [facility]. Gloria remains stable, no pain at rest. Exam Narrative: Exam Narrative: Sitting comfortably in chair, nontoxic CV exam reveals RRR, no M/R/G Breathing comfortably Extremities thin without abnormalities Const: Vital Signs, click to edit/add: Vital Signs - 24 hr 01/31/25 15:00 01/31/25 20:00 01/31/25 23:00 Temperature 97.7 F Pulse Rate [Pulse Oximeter] 86 86 Respiratory Rate 18 18 18 Blood Pressure [Le ft Arm] 116/65 Pulse Oximetry 94 Oxygen Delivery Me thod Room Air 02/01/25 07:00 02/01/25 07:00 Temperature 97.8 F Pulse Rate [Pulse Oximeter] 72 72 Respiratory Rate 16 16 Blood Pressure [Le ft Arm] 140/69 H Pulse Oximetry 94 Oxygen Delivery Me thod Room Air
[2025-02-01 15:00] VITALS: PULSE 74; RESP 16
[2025-02-01 19:00] VITALS: BP 110/65; PULSE 77; RESP 18; TEMP 36.7; O2SAT 98
[2025-02-01] MEDS: MIRTAZAPINE 15 MG TABLET 30 MG PO (20:41)
[2025-02-01] MEDS: GABAPENTIN 300 MG CAPSULE PO (20:41)
[2025-02-01] MEDS: MELATONIN 3 MG TABLET PO (20:41)
[2025-02-01 23:00] VITALS: PULSE 77; RESP 18
--- NOTE | 2025-02-02 06:12 | PC.NURSE ---
Pt cooperative throughout shift and vitally stable. 1:1 with jr until 0300, then with RN until 0700. Pt oriented to self, needs reorientation otherwise due to baseline dementia. Pt takes pills crushed in applesauce, tolerated well. Pt moves via 2a, tolerates well. Checked and changed throughout shift, 2 urine briefs. Pt appeared to be resting majority of shift. ? ?
[2025-02-02 07:00] VITALS: BP 110/65; PULSE 75; RESP 16; TEMP 36.7; O2SAT 98
[2025-02-02] MEDS: PROPRANOLOL 20 MG TABLET PO (10:09)
[2025-02-02] MEDS: ACETAMINOPHEN 650 MG TABLET ER 1300 MG PO (10:10)
--- NOTE | 2025-02-02 10:24 | PC.NURSE ---
Discharge: Called Abdifatah at 10:21 to let him know discharge will be happening today and if he need help with transport. Abdifatah said he was not told by anyone about the denial to his appeal for discharge. We received a fax on 02/01 at 12:45 that the discharge was denied. Abdifatah still seems surprised by this but did say well if this needs to happen. He was hoping he would have known yesterday about this. He says that I can arrange for non emergent transport and is hoping for 1 pm. I explained that when we set up it that if 911 calls come in she will possibly be delayed.
--- NOTE | 2025-02-02 10:48 | P.DS_ITS ---
DS: Providers Provider Date Seen: 02/02/25 Date of admission: 01/26/25 20:28 Primary care physician: Ed Walsh MD Admitting Clinician: Silvana Hurst MD Consults: OT, PT, SW Attending Physician on discharge: Lucina Varghese MD Date of Discharge: 02/02/25 DS: Diagnosis Discharge Diagnosis (1) Encephalopathy: Status: Acute Problem details: - acute on chronic - likely combination of multiple factors: dementia, delirium, recent bleed (admitted to [facility] on 12/25/24 for 5 weeks), new UTI, acute rib fracture and fall - labs reassuring, no fevers or evidence of acute infection - baseline functional status by hospital day 2 (2) Fall at home: Status: Acute Problem details: - 01/25: fall from standing height into dresser: rib fracture/bruises (3) Fracture of rib: Status: Acute Problem details: - Mildly displaced left lateral 8th rib fracture - pain adequately managed with Lidoderm patch, scheduled APAP (4) Acute UTI: Status: Acute Problem details: - per sensitivities, treated with 3 days of Cefpodoxime (01/28-01/31) (5) Severe Alzheimer dementia with agitation: Status: Chronic Problem details: - progressive disease with significant setback in Dec 2024 (bleed, presumably iatrogenic) - medical management: redirection, Remeron, Neurontin at (6) Nontraumatic cortical hemorrhage of right cerebral hemisphere: Status: Acute Problem details: - 12/25/24 - significant L sided field cut/neglect. 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 Noted to have a Urine culture + for E Coli, in addition to a mildly displaced L 8th lateral rib fracture. UTI treated with Cefpodoxime. Rib fracture pain treated with scheduled APAP, Lidocaine patch. No pain when at rest. Tolerating po intake. Ambulated with our PT/OT teams. worked with SW teams for placement; ultimately decided to go home with 12/06 caregivers. Time Spent with Patient Time attestation: Total time spent providing and/or coordinating discharge services: Time spent: Greater than 30 minutes Exam Narrative: Exam Narrative: Gloria is sitting comfortably in bedside chair and having breakfast, she is dressed and nontoxic in appearance Pulse palpates as regular rate and rhythm, she is breathing comfortably Extremities are thin without concerning edema Cognitive impairment is evident without any agitation during my visit this morning Const: Vital Signs, click to edit/add: Vital Signs - 24 hr 02/01/25 15:00 02/01/25 19:00 02/01/25 23:00 Temperature 98.1 F Pulse Rate [Pulse Oximeter] 74 77 77 Respiratory Rate 16 18 18 Blood Pressure [Le ft Arm] 110/65 Pulse Oximetry 98 Oxygen Delivery Me thod Room Air 02/02/25 07:00 02/02/25 07:00 Temperature 98.1 F Pulse Rate [Pulse Oximeter] 75 75 Respiratory Rate 16 16 Blood Pressure [Le ft Arm] 110/65 Pulse Oximetry 98 Oxygen Delivery Me thod Room Air Discharge Plan Discharge Disposition: Home, Self-Care Date of Admission: 01/26/25 20:28 Attending Provider on Discharge: Lucina Varghese Primary Care Provider: Ed Walsh Condition: Improved Anticipated Discharge Date/Time: 01/31/25 10:00 Discharge Medications: New acetaminophen 650 mg Tablet Extended Release 1,300 mg PO Q8H Qty: 20 0RF Continued lidocaine 4 % adhesive patch,medicated 1 patch topical BID PRN mirtazapine 15 mg tablet 15 mg PO QHS olanzapine 5 mg tablet,disintegrating 2.5 mg PO QHS Rx Instructions: at bedtime if needed for sleep or agitation propranolol 20 mg tablet 20 mg PO BID gabapentin 100 mg capsule 300 mg PO QHS omega 5-ueq-ixo-fish oil [Fish Oil] 1,200 (144-216) mg capsule 1 cap PO QDAY melatonin 3 mg tablet 3 mg PO QHS Women's 50 Plus Multivitamin 400 mcg-500 mg calcium-20 mcg tablet 1 tab PO QDAY fluorouracil 5 % cream 1 applic topical BID Rx Instructions: APPLY A SMALL AMOUNT TO AFFECTED AREA TWICE A DAY TO HANDS AND NOSE FOR UP TO 2 WEEKS cetirizine [Zyrtec] 10 mg tablet 10 mg PO DAILY PRN Discontinued amlodipine 2.5 mg tablet 2.5 mg PO BID acetaminophen 500 mg capsule 500 - 1,000 mg PO Q6H MDD 4000mg PRNQty: 100 0RF Discharge Orders: Discharge Order (Routine); Ordered 01/31/25 Ordered By: Lucina Varghese Patient Education: Acetaminophen (By mouth), Urinary Tract Infection in Older Adults (DC) Additional Instructions: Medication changes: - increase Tylenol to 1300mg (buy a bottle of 650mg tablets and take TWO every 8-10 hours around the clock for the next 5-7 days). - continue Lidocaine patch over area of rib fracture - STOP Amlodipine (this is a blood pressure medication and Gloria's blood pressure has been on the low side here, we don't want the blood pressure to be low and increase fall risk) Followup with Dr. Walsh in person or by phone in 7-10 days. Activity Level: No strenuous activity Activity Detail: When walking, should have a caregiver walk with her Diet Detail: as tolerated Follow Up Appointments: Ed Walsh MD [Primary Care Provider] - 02/11/25 12:45 pm ([facility] for follow-up.) Forms: [employer] Info Instructions
--- NOTE | 2025-02-02 10:50 | PC.NURSE ---
Called to let Abdifatah know that I have arranged transport for patient to go home. Left message as he did not answer and have a service window of 11:42-12:27 pending there are no 911 calls then this could be delayed.
--- NOTE | 2025-02-02 12:36 | PC.NURSE ---
Discharge: pt discharged to home via non emergent transport at 1200. notified of return to home. Discharge instructions given to sister in law. Pt's sister in law verbalized understanding of instructions. IV removed tip intact. Patient's VSS, tolerating a reg diet. Meds crushed and given with applesauce. Patient ambulating 2 assist to BR and in halls.
== END 2025-02-02 12:00 | disposition home or self-care (01) | DRG 70 ==
LOC: ED 17:03 → MEDSURG 20:02
PROVIDERS: Admitting Provider Family Medicine; Emergency Provider Emergency Medicine; PCP Family Medicine; Visit Provider Family Medicine
DX: G93.49 Other encephalopathy (principal); I61.1 Nontraumatic intracerebral hemorrhage in hemisphere, cortical; S22.32XA Fracture of one rib, left side, initial encounter for closed fracture; N39.0 Urinary tract infection, site not specified; F02.C11 Dementia in other diseases classified elsewhere, severe, with agitation; F33.9 Major depressive disorder, recurrent, unspecified; Z16.19 Resistance to other specified beta lactam antibiotics; G30.9 Alzheimer's disease, unspecified; Z96.642 Presence of left artificial hip joint; Z96.641 Presence of right artificial hip joint; W01.190A Fall on same level from slipping, tripping and stumbling with subsequent striking against furniture, initial encounter; Z91.81 History of falling; Y92.003 Bedroom of unspecified non-institutional (private) residence as the place of occurrence of the external cause; S30.0XXA Contusion of lower back and pelvis, initial encounter; F41.1 Generalized anxiety disorder; M47.816 Spondylosis without myelopathy or radiculopathy, lumbar region; H90.3 Sensorineural hearing loss, bilateral; B96.20 Unspecified Escherichia coli [E. coli] as the cause of diseases classified elsewhere
CPT/HCPCS: 36415; 70450; 71260; 72125; 74177; 80048; 81001; 83605; 84484; 85025; 87086; 93005; 97116; 97162; 97166; 97530; 97535; 99285; A9270; J1885; Q9967

== ENCOUNTER 2025-02-03 16:37 | Outpatient (CLI) | payer MEDICARE, BC, SELFPAY | END 2025-02-03 16:38 | disposition home or self-care (01) | LOC: AMB 02-04 11:44 | PROVIDERS: PCP Family Medicine; Visit Provider Emergency Medicine | DX: F03.90 Unspecified dementia, unspecified severity, without behavioral disturbance, psychotic disturbance, mood disturbance, and anxiety (principal); S29.9XXA Unspecified injury of thorax, initial encounter | CPT/HCPCS: A0425; A0427; A0428 ==

== ENCOUNTER 2025-02-03 17:32 | Emergency (ER) | payer MEDICARE, BC, SELFPAY ==
--- OUTSIDE RECORDS SUMMARY | 2025-02-03 17:34 | XMS_ITS | Clinical Summary ---
Author Organization [facility] Address [address] [place] [address] Care Team Providers Care Supply Chain Associate Name Role Phone Ed Walsh MD Primary Care Provider [phone] Encounters Date Type Department Care Team Description 11/24/2024 Telephone [facility] [address] [place] [phone] Piedad Lemon, market specialist Request 11/24/2024 Telephone [facility] [address] [place] [phone] Piedad Lemon, RN Covid 19 Testing from Last 3 Months Social History Tobacco Use Types Packs/Day Years Used Date Smoking Tobacco: Never Assessed Comments Unknown Sex and Gender Information Value Date Recorded Sex Assigned at Not on file Legal Sex Female 3:30 AM CHIEF DISPATCHER SERVICE Gender Identity Not on file Sexual Orientation Not on file Plan of Treatment Not on file Insurance [facility] [place] [address] MEDICARE [facility] MEDICARE Care Teams Supply Chain Associate Relationship Specialty Start Date End Date Ed Walsh MD [facility] [address] [place] [address] PCP - General Family Medicine 09/20/24
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
--- OUTSIDE RECORDS SUMMARY | 2025-02-03 17:34 | XMS_ITS | Data Portability ---
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 Plan of Treatment Reminders Order Date Submit Date Provider Last Modified By Organization Details Last Modified Time Details Appointments None recorded. Lab None recorded. Referral None recorded. Procedures None recorded. Surgeries total hip arthroplas ty, anterior approach (SURG) 2023 024 Not available 4 12:49:37 Imaging XR, hip + pelvis, unilateral , 2 or 3 view 2023 024 [email or web address] In-Office Order, Internal Use Only DO Not Attach Compendium DO Not Attach Compendium, Do Not Delete/merge, [id number] 4 17:23:49 Medication Orders None recorded. Patient TargetsNo targets recorded. Patient InstructionsNo instructions recorded. Reason for Referral None Reported. Results Created Date Observation Date Name Description Value Unit Range Abnormal Flag Note LastModifiedBy Organization Detail LastModifiedTime 12/25/19 24 XR, hip + pelvi s, unila teral , 2 or 3 view No observ ation record ed. [email or web address] In-Office Order Internal Use Only DO Not Attach Compendium DO Not Attach Compendium, Do Not Delete/merge, [id number] 12/28/2023 17:23:48 Result Notes None recorded. Procedures Surgical History Date Name Laterality Status Provider Name and Address Organization Details Recorded Time Joint Replacement completed Kristin Aguilar [facility] 12/27/2023 16:39:40 Back Surgery completed Kristin Aguilar [facility] 12/27/2023 16:39:40 Other Surgeries completed Kristin Velasco [facility] 12/27/2023 16:39:40 Imaging Results Imaging Date Name Status LastModified by Organiz ation Details LastModified Time 12/25/2023 XR, hip + pelvis, unilateral , 2 or 3 view completed [email or web address] In-Office Order Internal Use Only DO Not Attach Compendium DO Not Attach Compendium, Do Not Delete/merge, [id number] 12/28/2023 17:23:48 Procedure Notes None recorded. Medical Equipment None Reported. Allergies No known drug allergies Vitals Date Recorded Body height Body mass index (BMI) Body weight Heart rate Systolic blood pressure Diastolic blood pressure Provider Name and Address Organization Details Last Updated DateTime 154.94 cm 18.9 kg/m2 49683.2 4 g 62 /min 122 mm[Hg] 77 mm[Hg] Wendy Wilson [facility] 16:43:21 Social History Question Answer Notes LastModified by Organizat ion Details LastModified Time Tobacco Smoking Status Never Smoker Wendy Wilson [facility] 12/27/2023 16:43:44 Do You Have An Advance Directive? Yes Per Patient Information not available 12/27/2023 If Pulse Oximetry Was Done: Is The Patient's Sp02 Less Than 93% On Room Air? No [email or web address] Information not available 12/27/2023 What Was The Date Of Your Most Recent Tobacco Screening? 12/27/2023 Information not available 12/27/2023 What Is Your Relationship Status? [email or web address] Information not available 12/27/2023 Do You Or [...] SNOMED-CT Code Diagnosis ICD10 Code Diagnosis Note [id number] José Francis MD [facility] [address] [address] 12/27/2023 16:22:23 12/27/2023 17:07:25 Pain of left hip joint [id number] M25.552 arthritis of the left hip ; she is bone on boneshe will require a JOLIE had a long discussion with the patient [...] Member ID Guarantor Name 12/27/2023 2 [place] MEDICARE COST [place] Joon Tabor [id number] Kylie Tabor Notes Date Note Type Note [...] little Work Related:no Working:no José Francis MD [address], [place], [address], [facility] - [facility] 12/28/2023 22:35:50 OBGyn Episode No OBEpisode recorded.
[2025-02-03 17:35] VITALS: BP 96/80; PULSE 84; RESP 12; TEMP 36.9; O2SAT 99
--- OUTSIDE RECORDS SUMMARY | 2025-02-03 17:35 | XMS_ITS | Clinical Summary ---
Author Organization [employer] [facility] Address [address] [place] [address] Care Team Providers Care Dinkey Locomotive Engineer Name Role Phone Autumn Raphael Unavailable [phone] Ed Walsh MD Primary Care Provider + [facility] Unavailable [phone] Allergies No known active allergies Medications fluorouracil (EFUDEX) 5 % cream APPLY A SMALL AMOUNT TO AFFECTED AREA TWICE A DAY TO HANDS AND NOSE FOR UP TO 2 WEEKS 025 Active cetirizine (ZyrTEC) 10 mg tablet Take 10 mg by mouth once daily if needed. Active fish oil-omega-3 fatty acids (Fish OiL) 1,200-360 mg cap Take 1 Capsule by mouth once daily. One capsule is 1200 mg-360 mg Active glucosam-chondroi r-T-iceciesmj 500-400-2-0.33 mg cap Take 1 Capsule by mouth once daily. Active calcium carbonate (OS-WILLI 500) 500 mg calcium (1,250 mg) tablet Take 500 mg by mouth once daily with a meal. Active multivitamins-min erals-lutein (Multivitamin 50 Plus) tab tablet Take 1 Tablet by mouth once daily. Active melatonin 3 mg tablet Take 3 mg by mouth at bedtime. Active hospital bedIndications:En cephalopathy acute,Intracrania l hemorrhage (HC) Hospital bed with mattress and full rails. Semi-electric bed. Length of need 6 months. 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 Commode. For home use. 1 Each Active wheelchairIndicat ions:Intracranial hemorrhage (HC) Wheelchair: Standard with leg rests: (Swing away Length of need: 12 months 1 Each Active gabapentin (NEURONTIN) 100 mg capsuleIndication s:Back pain, unspecified back location, unspecified back pain laterality, unspecified chronicity Take 1 Capsule (100 mg) by mouth at bedtime. 30 Capsule 01/17/20 25 5:12 PM DIGITAL MARKETER 025 Active acetaminophen (TYLENOL) 325 mg tabletIndications :Back pain, unspecified back location, unspecified back pain laterality, unspecified chronicity [The details of the medication are not available because there are pending changes by a home health clinician.] 100 Tablet 01/17/20 25 5:12 PM DIGITAL MARKETER 025 Active Additional Information Patient taking differently: 4 TabletOralQ 8H, Max acetaminophen dose: 4000mg in 24 hrs.,Indications: pain, Reason: See Comment (changed at most recent hospitalization), Informant: Patient's Med List, Reported on 02/03/2025 lidocaine 4 % topical patchIndications: Back pain, unspecified back location, unspecified back pain laterality, unspecified chronicity Apply to intact skin to cover most painful area for max 12hr per 24hr period. 30 Patch 025 Active OLANzapine (ZYPREXA ZYDIS) 5 mg disintegrating tabletIndications :Encephalopathy acute,Intracrania l hemorrhage (HC) Take ONE-HALF Tablet (2.5 mg) by mouth at bedtime if needed for Sleep or Agitation. 30 Tablet 01/17/20 25 5:12 PM DIGITAL MARKETER 025 Active propranoloL (INDERAL) 20 mg tabletIndications :Encephalopathy acute,Hypertensio n Take 1 Tablet (20 mg) by mouth two times daily. 60 Tablet 01/17/20 25 5:12 PM DIGITAL MARKETER 025 Active amLODIPine (NORVASC) 2.5 mg tabletIndications :Intracranial hemorrhage (HC),Hypertension [The details of the medication are not available because there are pending changes by a home health clinician.] 60 Tablet 01/20/20 25 1:05 PM DIGITAL MARKETER 025 2024 Active Additional Information Patient not taking.Reason: See Comment (discontinued per hospital med list), Informant: Patient's Med List, Reported on 02/03/2025 mirtazapine (REMERON) 15 mg tabletIndications :Encephalopathy acute,Intracrania l hemorrhage (HC) Take 1 Tablet (15 mg) by mouth at bedtime. 30 Tablet 01/20/20 25 1:05 PM DIGITAL MARKETER 025 2024 Active sodium chloride 1,000 mg soluble tabletIndications :Hyponatremia Take 1 Tablet (1,000 mg) by mouth two times daily. 60 Tablet 01/20/20 25 1:05 PM DIGITAL MARKETER 025 2024 Active gabapentin (NEURONTIN) 300 mg capsule Take 300 mg by mouth at bedtime. 2024 Discontinued(* IP Discontinued) sertraline (ZOLOFT) 100 mg tablet Take 1 Tablet by mouth once daily. 024 2024 Discontinued(* IP Discontinued) zolpidem (AMBIEN) 5 mg tablet Take 5 mg by mouth once daily if needed. 025 2024 Discontinued(* IP Discontinued) HYDROcodone-aceta minophen (5-325 mg/tablet) Take 1 Tablet by mouth once daily if needed for Pain. Max acetaminophen dose: 4000 mg in 24 hrs. 2024 Discontinued(* IP Discontinued) zoledronic acid/mannitol-hima er (RECLAST IV) Inject intravenous. 2024 Discontinued(* Med complete/Regim en complete/Level of care change) aspirin (ECOTRIN) 81 mg enteric coated tablet Take 81 mg by mouth once daily with a meal. 2024 Discontinued(* IP Discontinued) clonazePAM (KLONOPIN) 0.5 mg tablet TAKE HALF A TABLET 30 MINUTES BEFORE THE MRI. YOU CAN TAKE THE SECOND HALF RIGHT BEFORE MRI IF NEEDED. YOU WILL NEED A GATE CLERK. 025 2024 Discontinued(* IP Discontinued) ibuprofen (ADVIL; MOTRIN) 200 mg tablet Take 200-400 mg by mouth 3 times daily if needed. 2024 Discontinued(* IP Discontinued) diphenhydrAMINE-a cetaminophen 25-500 mg (Tylenol PM Extra Strength) 25-500 mg tablet Take 1 Tablet by mouth at bedtime if needed. Max acetaminophen dose: 4000mg in 24 hrs. 2024 Discontinued(* IP Discontinued) mirtazapine (REMERON) 7.5 mg tabletIndications :Encephalopathy acute,Intracrania l hemorrhage (HC) Take 1 Tablet (7.5 mg) by mouth at bedtime. 30 Tablet 01/17/20 25 5:12 PM DIGITAL MARKETER 025 2024 Discontinued(* IP Discontinued) sodium chloride 1,000 mg soluble tabletIndications :Hyponatremia Take 1 Tablet (1,000 mg) by mouth three times daily. 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 01/04/2025 Fever 01/01/2025 Stupor 01/01/2025 Cytotoxic cerebral edema 12/26/2024 Alzheimer's dementia 12/26/2024 Intracranial hemorrhage 12/26/2024 ICH (intracerebral hemorrhage) 12/25/2024 Depression 12/25/2024 Dyslipidemia 12/05/2024 Sensorineural hearing loss, bilateral 08/14/2012 Disorder of bone and cartilage, unspecified 06/2007 Encounters Date Type Department Care Team Description 02/03/2025 11:00 AM CDT Home Care Visit [facility] [address] [place] [phone] Lisha Bautista, RN SN - OASIS RESUMPTION OF CARE 01/31/2025 Home Care Visit [facility] [address] [place] [phone] Lisha Bautista, RN CARE COORDINATION 01/28/2025 Home Care Visit [facility] [address] [place] [phone] Lisha Bautista, DANIEL SN - OASIS TRANSFER 01/28/2025 Home Care Visit [facility] [address] [place] [phone] Oxana Esqueda, DANIEL CARE COORDINATION 01/27/2025 Home Care Visit [facility] [address] [place] [phone] Lisha Bautista, DIGITAL PRINTER NOTE 01/24/2025 1:30 PM DIGITAL MARKETER Home Care Visit [facility] [address] [place] [address], [place] [phone] David Fishman, PT PT - INITIAL ASSESSMENT 01/23/2025 11:15 AM DIGITAL MARKETER Home Care Visit [facility] [address] [place] [phone] Sury Silva, OT OT - INITIAL ASSESSMENT 01/23/2025 Home Care Visit [facility] [address] [place] [phone] Oxana Esqueda, DANIEL CARE COORDINATION 01/23/2025 Nurse Triage [facility] [address] [place] [address] Ed Walsh MD [facility] 01/21/2025 7:00 AM DIGITAL MARKETER Home Care Visit [facility] [address] [place] [phone] Shereen Alvarez, DANIEL SN - OASIS START OF CARE 01/21/2025 Telephone [facility] [address] [place] [phone] Shereen Alvarez, speech correction consultant (Need ongoing orders for HH) 01/21/2025 Plan of Care Documentation [facility] [address] [place] [phone] 01/19/2025 Travel 12/25/2024 9:26 PM DIGITAL MARKETER - 01/20/2025 12:00 PM DIGITAL MARKETER Hospital Encounter [facility] [address] [place] [address] Helena Smith DO Malik, MD Mariah Bains, MD Scott Landeros, MD Yoav Salamanca, MD Abdelrahman Pérez, Ed Hilliard MD [facility] [place] Of Encephalopathy acute (Primary Dx); Intracranial hemorrhage (HC); Nontraumatic cortical hemorrhage of right cerebral hemisphere (HC); Back pain, unspecified back location, unspecified back pain laterality, unspecified chronicity; Hypertension; Hyponatremia; Alzheimer's dementia with agitation, unspecified dementia severity, unspecified timing of dementia onset (HC) Discharge Disposition: Home Health from Last 3 Months Immunizations Immunization Administration Dates Next Due Hepatitis A (Adult) [...] e alcohol) Social Connections Answer Date Recorded Do you often feel lonely or isolated from those around you? 0 01/19/2025 Financial Resource Strain Answer Date R ecorded Difficulty of Paying Living Expenses 3 01/19/2025 Difficulty of Paying Living Expenses Not on file 01/19/2025 Food Insecurity Answer Date Recorded Do you worry your food will run out before you are able to buy more? 1 01/19/2025 Transportation Needs Answer Date Record ed Does lack of transportation keep you from medica l appointments? 1 01/19/2025 Does lack of transportation keep you from work, meetings or getting things that you need? 1 01/19/2025 Housing Stability Answer Date Recorded What is your housing situation today? 1 01/19/2025 Interpersonal Safety Answer Date Record ed Are you being hit, kicked, p ushed or yelled at (see row info)? Unable to assess due to chronic condition 01/19/2025 Interpersonal Safety Abuse 12 - 18 Not on file 01/19/2025 Interpersonal Safety Ambulat ory Vulnerability Not on file 01/19/2025 Utilities Answer Date Recorded Do you have trouble paying f or utilities (for example, heat, electricity, water, phone)? 1 01/19/2025 Comments No Sex and Gender Information Value Date Recorded Sex Assigned at Not on file Legal Sex Female 6:04 AM DIGITAL MARKETER Gender Identity Not on file Sexual Orientation Not on file Obstetrics History Last Filed Vital Signs Vital Sign Reading Time Taken Comments Blood Pressure 110/60 02/03/2025 11:21 AM CDT Pulse 81 02/03/2025 11:21 AM CDT Temperature 36.6 C (97.9 F) 02/03/2025 11:21 AM CDT Respiratory Rate 18 02/03/2025 11:21 AM CDT Oxygen Saturation 94% 01/24/2025 1:41 PM DIGITAL MARKETER Inhaled Oxygen Concentration - - Weight 46.3 kg (102 lb) 02/03/2025 11:21 AM CDT Height 157.5 cm (5' 2) 01/21/2025 2:13 PM DIGITAL MARKETER Body Mass Index 18.66 01/21/2025 2:13 PM DIGITAL MARKETER Plan of Treatment Upcoming Encounters Date Type Department Care Team (Late st Contact Info) Description 02/04/2025 4:30 AM CDT Home Care Visit [address] [phone] Sury Silva, OT [address] [place] [phone] 02/04/2025 5:00 AM CDT Home Care Visit [place] [phone] [place] [phone] Toya Ley [address], [place] [address] 02/13/2025 4:00 AM CDT Home Care Visit [address] [phone] Lisha Bautista RN 02/20/2025 4:00 AM CDT Home Care Visit [address] [place] [phone] Lisha Bautista, DANIEL 02/27/2025 4:00 AM CDT Home Care Visit [facility] [address] [place] [address] Lisha Bautista, DANIEL 03/06/2025 4:00 AM CDT Home Care Visit [facility] [address] [place] [address], [place] [phone] Lisha Bautista, DANIEL 03/13/2025 4:00 AM CDT Home Care Visit [facility] [address] [place] [address], [place] [phone] Lisha Bautista RN 03/20/2025 4:00 AM CDT Appointment [facility] [address] [place] [address], [place] [phone] Lisha Bautista, RN Health Maintenance Due Date Last Done Comments [...] or (1 - 1-dose 75+ series) 2020 Influenza Vaccine (#1) 2024 COVID-19 vaccine series ( season) 2025 08/07/2024, 02/27/2024, 08/24/2023, Additional history exists Tdap Completed 06/21/2006 Procedures Procedure Name Priority Date/Time Associated Diagnosis Comments SODIUM Early AM 01/19/2025 6:37 AM DIGITAL MARKETER HEMOGLOBIN Early AM 01/19/2025 6:37 AM DIGITAL MARKETER XR CHEST 1 VIEW PORTABLE Routine 01/16/2025 11:15 AM DIGITAL MARKETER SODIUM Early AM 01/16/2025 10:52 AM DIGITAL MARKETER ALT (SGPT) Early AM 01/13/2025 10:58 AM DIGITAL MARKETER AST (SGOT) Early AM 01/13/2025 10:58 AM DIGITAL MARKETER ALK PHOSPHATASE Early AM 01/13/2025 10:58 AM DIGITAL MARKETER AMMONIA Early AM 01/13/2025 10:58 AM DIGITAL MARKETER CREATININE Early AM 01/13/2025 10:58 AM DIGITAL MARKETER POTASSIUM Early AM 01/13/2025 10:58 AM DIGITAL MARKETER SODIUM Early AM 01/13/2025 10:58 AM DIGITAL MARKETER CBC W PLT NO DIFF Early AM 01/13/2025 10: 58 AM DIGITAL MARKETER SODIUM Early AM 01/11/2025 6:45 AM DIGITAL MARKETER HEPATIC FUNCTION PANEL EDILIA 6:46 AM DIGITAL MARKETER SODIUM Early AM 01/10/2025 6:46 AM DIGITAL MARKETER PHOSPHORUS Early AM 01/10/2025 6:46 AM DIGITAL MARKETER MAGNESIUM Early AM 01/10/2025 6:46 AM DIGITAL MARKETER POTASSIUM Early AM 01/10/2025 6:46 AM DIGITAL MARKETER SODIUM Today 01/09/2025 4:12 PM DIGITAL MARKETER PHOSPHORUS EDILIA 01/09/2025 6:17 AM DIGITAL MARKETER POTASSIUM EDILIA 01/09/2025 6:17 AM DIGITAL MARKETER MAGNESIUM EDILIA 01/09/2025 6:17 AM DIGITAL MARKETER CBC W PLT NO DIFF Early AM 01/09/2025 6:1 7 AM DIGITAL MARKETER BASIC METABOLIC PANEL Early AM 01/09/2025 6:17 AM DIGITAL MARKETER SODIUM EDILIA 01/08/2025 1:24 PM DIGITAL MARKETER POTASSIUM Timed 01/08/2025 1:24 PM DIGITAL MARKETER POTASSIUM Today 01/08/2025 8:38 AM DIGITAL MARKETER SODIUM Timed 01/08/2025 8:38 AM DIGITAL MARKETER CBC W PLT NO DIFF Early AM 01/08/2025 6:2 4 AM DIGITAL MARKETER BASIC METABOLIC PANEL Early AM 01/08/2025 6:24 AM DIGITAL MARKETER SODIUM Timed 01/08/2025 2:44 AM DIGITAL MARKETER SODIUM Timed 01/07/2025 9:37 PM DIGITAL MARKETER SODIUM Timed 01/07/2025 2:23 PM DIGITAL MARKETER SODIUM Timed 01/07/2025 8:31 AM DIGITAL MARKETER LD,TOTAL Early AM 01/07/2025 6:31 AM DIGITAL MARKETER HEMOGLOBIN Early AM 01/07/2025 6:31 AM DIGITAL MARKETER SODIUM Timed 01/07/2025 3:35 AM DIGITAL MARKETER SODIUM Timed 01/06/2025 9:24 PM DIGITAL MARKETER HAPTOGLOBIN EDILIA 01/06/2025 4:02 PM DIGITAL MARKETER SODIUM Timed 01/06/2025 4:02 PM DIGITAL MARKETER SODIUM Timed 01/06/2025 9:50 AM DIGITAL MARKETER RETICULOCYTES EDILIA 01/06/2025 4:16 AM DIGITAL MARKETER WHITE BLOOD COUNT Early AM 01/06/2025 4:1 6 AM DIGITAL MARKETER PLATELET COUNT Early AM 01/06/2025 4:16 AM DIGITAL MARKETER HEMOGLOBIN Early AM 01/06/2025 4:16 AM DIGITAL MARKETER SODIUM Timed 01/06/2025 4:16 AM DIGITAL MARKETER SODIUM Timed 01/05/2025 9:08 PM DIGITAL MARKETER SODIUM Timed 01/05/2025 3:18 PM DIGITAL MARKETER US VENOUS LOWER EXTREMITY BILATERAL Routine 01/05/2025 10:07 AM DIGITAL MARKETER CREATININE EDILIA 01/05/2025 9:30 AM DIGITAL MARKETER ELECTROLYTE PANEL EDILIA 01/05/2025 9:3 0 AM DIGITAL MARKETER PROCALCITONIN Today 01/05/2025 9:30 AM DIGITAL MARKETER WHITE BLOOD COUNT Today 01/05/2025 9:3 0 AM DIGITAL MARKETER SODIUM Timed 01/05/2025 9:30 AM DIGITAL MARKETER XR CHEST 1 VIEW PORTABLE Routine 01/05/2025 9:25 AM DIGITAL MARKETER GLUCOSE METER Timed 01/05/2025 7:55 AM DIGITAL MARKETER SODIUM Timed 01/05/2025 3:04 AM DIGITAL MARKETER GLUCOSE METER Timed 01/05/2025 1:50 AM DIGITAL MARKETER SODIUM Timed 01/04/2025 9:11 PM DIGITAL MARKETER GLUCOSE METER Timed 01/04/2025 6:16 PM DIGITAL MARKETER GLUCOSE METER Timed 01/04/2025 3:22 PM DIGITAL MARKETER SODIUM Timed 01/04/2025 3:05 PM DIGITAL MARKETER OSMOLALITY,URINE Today 01/04/2025 11:0 2 AM DIGITAL MARKETER OSMOLALITY EDILIA 01/04/2025 11:02 AM DIGITAL MARKETER HEPATIC FUNCTION PANEL EDILIA 11:02 AM DIGITAL MARKETER SODIUM,RANDOM URINE Today 01/04/2025 1 1:02 AM DIGITAL MARKETER SODIUM Timed 01/04/2025 11:02 AM DIGITAL MARKETER SODIUM Timed 01/04/2025 5:09 AM DIGITAL MARKETER GLUCOSE METER Timed 01/04/2025 4:53 AM DIGITAL MARKETER SODIUM Timed 01/03/2025 11:21 PM DIGITAL MARKETER SODIUM Timed 01/03/2025 6:27 PM DIGITAL MARKETER GLUCOSE METER Timed 01/03/2025 5:[address] HEAD BRAIN WO EDILIA 01/03/2025 4:02 PM DIGITAL MARKETER SODIUM Timed 01/03/2025 12:54 PM DIGITAL MARKETER GLUCOSE METER Timed 01/03/2025 12:32 PM DIGITAL MARKETER ALK PHOSPHATASE Early AM 01/03/2025 5:49 AM DIGITAL MARKETER AST (SGOT) Early AM 01/03/2025 5:49 AM DIGITAL MARKETER ALT (SGPT) Early AM 01/03/2025 5:49 AM DIGITAL MARKETER HEMOGLOBIN Early AM 01/03/2025 5:49 AM DIGITAL MARKETER SODIUM Timed 01/03/2025 5:49 AM DIGITAL MARKETER GLUCOSE METER Timed 01/03/2025 4:53 AM DIGITAL MARKETER SODIUM Timed 01/02/2025 11:18 PM DIGITAL MARKETER GLUCOSE METER Timed 01/02/2025 10:32 PM DIGITAL MARKETER SODIUM Timed 01/02/2025 5:54 PM DIGITAL MARKETER SODIUM Timed 01/02/2025 11:27 AM DIGITAL MARKETER PLATELET COUNT Early AM 01/02/2025 7:44 AM DIGITAL MARKETER WHITE BLOOD COUNT Early AM 01/02/2025 7:4 4 AM DIGITAL MARKETER HEMOGLOBIN Early AM 01/02/2025 7:44 AM DIGITAL MARKETER BASIC METABOLIC PANEL Early AM 01/02/2025 6:35 AM DIGITAL MARKETER SODIUM Timed 01/02/2025 6:35 AM DIGITAL MARKETER GLUCOSE METER Timed 01/02/2025 3:59 AM DIGITAL MARKETER SODIUM Timed 01/02/2025 1:00 AM DIGITAL MARKETER GLUCOSE METER Timed 01/01/2025 9:27 PM DIGITAL MARKETER GLUCOSE METER Timed 01/01/2025 6:34 PM DIGITAL MARKETER INSERT PICC LINE Routine 01/01/2025 5:41 PM DIGITAL MARKETER SODIUM Timed 01/01/2025 4:37 PM DIGITAL MARKETER CORTISOL TOTAL Timed 01/01/2025 4:37 PM DIGITAL MARKETER GLUCOSE METER Timed 01/01/2025 12:[address] HEAD BRAIN WO STAT 01/01/2025 11:5 2 AM DIGITAL MARKETER TSH EDILIA 01/01/2025 11:17 AM DIGITAL MARKETER SODIUM Timed 01/01/2025 11:17 AM DIGITAL MARKETER OSMOLALITY,URINE Today 01/01/2025 9:39 AM DIGITAL MARKETER SODIUM,RANDOM URINE Today 01/01/2025 9 :39 AM DIGITAL MARKETER BASIC METABOLIC PANEL Early AM 01/01/2025 7:13 AM DIGITAL MARKETER WHITE BLOOD COUNT Early AM 01/01/2025 7:1 3 AM DIGITAL MARKETER GLUCOSE METER Timed 01/01/2025 6:06 AM DIGITAL MARKETER GLUCOSE METER Timed 12/31/2024 10:[address] CHEST ABDOMEN PELVIS W Routine 12/31/2024 4:48 PM DIGITAL MARKETER GLUCOSE METER Timed 12/31/2024 2:17 PM DIGITAL MARKETER BLOOD CULTURE Today 12/31/2024 12:29 PM DIGITAL MARKETER BLOOD CULTURE Today 12/31/2024 12:29 PM DIGITAL MARKETER GLUCOSE METER Timed 12/31/2024 9:47 AM DIGITAL MARKETER PHOSPHORUS Early AM 12/31/2024 6:32 AM DIGITAL MARKETER POTASSIUM Early AM 12/31/2024 6:32 AM DIGITAL MARKETER WHITE BLOOD COUNT Early AM 12/31/2024 6:3 2 AM DIGITAL MARKETER GLUCOSE METER Timed 12/31/2024 4:24 AM DIGITAL MARKETER GLUCOSE METER Timed 12/30/2024 9:13 PM DIGITAL MARKETER GLUCOSE METER Timed 12/30/2024 5:08 PM DIGITAL MARKETER COVID/FLU/RSV PANEL Today 12/30/2024 1 0:17 AM DIGITAL MARKETER BASIC METABOLIC PANEL Early AM 12/30/2024 8:51 AM DIGITAL MARKETER CBC W PLT NO DIFF Early AM 12/30/2024 8:5 1 AM DIGITAL MARKETER PHOSPHORUS Early AM 12/30/2024 8:51 AM DIGITAL MARKETER MAGNESIUM Early AM 12/30/2024 8:51 AM DIGITAL MARKETER GLUCOSE METER Timed 12/30/2024 4:04 AM DIGITAL MARKETER GLUCOSE METER Timed 12/29/2024 9:15 PM DIGITAL MARKETER GLUCOSE METER Timed 12/29/2024 3:24 PM DIGITAL MARKETER URINALYSIS MICROSCOPIC Timed 2:21 PM DIGITAL MARKETER UA W/ SEDIMENT EXAM REFLEXED PER CRITERIA Today 12/29/2024 2:21 PM DIGITAL MARKETER XR CHEST 1 VIEW PORTABLE Routine 12/29/2024 2:14 PM DIGITAL MARKETER PHOSPHORUS Today 12/29/2024 11:28 AM DIGITAL MARKETER GLUCOSE METER Timed 12/29/2024 9:30 AM DIGITAL MARKETER POTASSIUM Early AM 12/29/2024 6:43 AM DIGITAL MARKETER MAGNESIUM Early AM 12/29/2024 6:[address] HEAD BRAIN WO Routine 12/29/2024 4:23 AM DIGITAL MARKETER GLUCOSE METER Timed 12/29/2024 2:55 AM DIGITAL MARKETER XR ABDOMEN 1 VIEW PORTABLE STAT 12/28/2024 6:33 PM DIGITAL MARKETER GLUCOSE METER Timed 12/28/2024 10:47 AM DIGITAL MARKETER PHOSPHORUS Timed 12/28/2024 9:40 AM DIGITAL MARKETER SCAN-CARDIAC STRIP 12/28/2024 7: 30 AM DIGITAL MARKETER GLUCOSE METER Timed 12/28/2024 5:13 AM DIGITAL MARKETER CBC W PLT NO DIFF Early AM 12/28/2024 4:2 0 AM DIGITAL MARKETER BASIC METABOLIC PANEL Early AM 12/28/2024 4:20 AM DIGITAL MARKETER PHOSPHORUS Early AM 12/28/2024 4:20 AM DIGITAL MARKETER MAGNESIUM Early AM 12/28/2024 4:20 AM DIGITAL MARKETER SCAN-RADIOLOGY REPORT 12/28/2024 12:00 AM DIGITAL MARKETER GLUCOSE METER Timed 12/27/2024 9:12 PM DIGITAL MARKETER GLUCOSE METER Timed 12/27/2024 2:31 PM DIGITAL MARKETER SODIUM Timed 12/27/2024 1:51 PM DIGITAL MARKETER GLUCOSE METER Timed 12/27/2024 9:06 AM DIGITAL MARKETER CBC W PLT NO DIFF Early AM 12/27/2024 4:5 9 AM DIGITAL MARKETER BASIC METABOLIC PANEL Early AM 12/27/2024 4:59 AM DIGITAL MARKETER PHOSPHORUS Early AM 12/27/2024 4:59 AM DIGITAL MARKETER MAGNESIUM Early AM 12/27/2024 4:59 AM DIGITAL MARKETER GLUCOSE METER Timed 12/27/2024 4:21 AM DIGITAL MARKETER GLUCOSE METER Timed 12/26/2024 10:07 PM DIGITAL MARKETER MR HEAD BRAIN WO Routine 12/26/2024 4:45 PM DIGITAL MARKETER GLUCOSE METER Timed 12/26/2024 2:52 PM DIGITAL MARKETER SCAN CORRESP-IMAGING 12/26/2024 10:44 AM DIGITAL MARKETER GLUCOSE METER Timed 12/26/2024 8:27 AM DIGITAL MARKETER UA W/ SEDIMENT EXAM REFLEXED PER CRITERIA Today 12/26/2024 6:[address] HEAD BRAIN WO Routine 12/26/2024 6:12 AM DIGITAL MARKETER WHITE BLOOD COUNT Early AM 12/26/2024 4:5 1 AM DIGITAL MARKETER PLATELET COUNT Early AM 12/26/2024 4:51 AM DIGITAL MARKETER HEMOGLOBIN Early AM 12/26/2024 4:51 AM DIGITAL MARKETER BASIC METABOLIC PANEL Early AM 12/26/2024 4:51 AM DIGITAL MARKETER PHOSPHORUS Early AM 12/26/2024 4:51 AM DIGITAL MARKETER MAGNESIUM Early AM 12/26/2024 4:[address] HEAD BRAIN WO Timed 12/26/2024 12:5 1 AM DIGITAL MARKETER SCAN-CARDIAC STRIP 12/25/2024 10 :48 PM DIGITAL MARKETER SCAN-CARDIAC STRIP 12/25/2024 10 :00 PM DIGITAL MARKETER CBC WITH AUTO DIFFERENTIAL STAT 12/25/2024 9:51 PM DIGITAL MARKETER PROTIME-INR STAT 12/25/2024 9:51 PM DIGITAL MARKETER HEPATIC FUNCTION PANEL STAT 9:51 PM DIGITAL MARKETER PHOSPHORUS STAT 12/25/2024 9:51 PM DIGITAL MARKETER MAGNESIUM STAT 12/25/2024 9:51 PM DIGITAL MARKETER CBC WITH AUTO DIFFERENTIAL STAT 12/25/2024 9:51 PM DIGITAL MARKETER BASIC METABOLIC PANEL STAT 12/25/2024 9:51 PM DIGITAL MARKETER EKG 12 LEAD STAT 12/25/2024 9:45 PM DIGITAL MARKETER GLUCOSE METER Timed 12/25/2024 9:23 PM DIGITAL MARKETER from Last 3 Months Results * (ABNORMAL) HEMOGLOBIN (01/19/2025 6:37 AM DIGITAL MARKETER) Only the most recent of6 resultswithin the time period is included. HEMOGLOBIN 9.5(L) 12.0 - 16.0 g/dL 01/19/2025 7:41 AM DIGITAL MARKETER [facility] MCV 91 80 - 100 fL 01/19/2025 7:41 AM DIGITAL MARKETER [facility] Blood BLOOD SPECIMEN / Unknown Venipuncture / Unknown 01/19/2025 6:37 AM DIGITAL MARKETER 01/19/2025 7:27 AM DIGITAL MARKETER us Ed Quick MD HEMATOLOGY Final Result [facility] [address] [place] [address], * SODIUM (01/19/2025 6:37 AM DIGITAL MARKETER) Only the most recent of37 resultswithin the time period is included. SODIUM 144 136 - 145 mmol/L 01/19/2025 7:45 AM DIGITAL MARKETER [facility] Blood BLOOD SPECIMEN / Unknown Venipuncture / Unknown 01/19/2025 6:37 AM DIGITAL MARKETER 01/19/2025 7:28 AM DIGITAL MARKETER us Ed Quick MD CHEMISTRY Final Result [facility] [address] [place] [address], [place] * XR Chest 1 view portable (01/16/2025 11:15 AM DIGITAL MARKETER) Only the most recent of3 resultswithin the time period is included. Anatomical Region Laterality Modality HEART, THORAX, CHEST Digital Rad iography 01/16/2025 11:3 5 AM DIGITAL MARKETER Impressions 01/16/2025 11:35 AM DIGITAL MARKETER Negative chest Dictated by José Funk MD @ Jan 16 2025 11:35AM (Electronically Signed) [email or web address] Narrative 01/16/2025 11:35 AM DIGITAL MARKETER For Patients: As a result of the Cures Act, medical imaging exams and procedure reports are released immediately into your electronic medical record. You may view this report before your referring provider. If you have questions, please contact your health care provider. INDICATION: Cough TECHNIQUE: Portable AP image of the chest COMPARISON: 01/05/2025 FINDINGS: Lungs and pleural spaces clear. Heart, mediastinum and pulmonary vessels normal. No significant osseous abnormality. Procedure Note José Funk MD - 01/16/2025 For Patients: As a result of the s Act, medical imagingexams and procedure reports are released immediately into your electronicmedical record. You may view this report before your referring provider.If you have questions, please contact your health care provider. INDICATION: Cough TECHNIQUE: Portable AP image of the chest COMPARISON: 01/05/2025 FINDINGS: Lungs and pleural spaces clear. Heart, mediastinum and pulmonary vesselsnormal. No significant osseous abnormality. IMPRESSION: Negative chest Dictated by José Funk MD @ Jan 16 2025 11:35AM (Electronically Signed) [email or web address] Samina Cason MD GENERAL IMAGING Final Resul t * (ABNORMAL) CBC no diff AM (01/13/2025 10:58 AM [facility]) Only the most recent of6 resultswithin the time period is included. WHITE BLOOD COUNT 6.3 4.5 - 11.0 thou/cu mm 01/13/2025 11:12 AM [facility] RED BLOOD COUNT 3.10(L) 4.00 - 5.20 mil/cu mm 01/13/2025 11:12 AM [facility] HEMOGLOBIN 9.1(L) 12.0 - 16.0 g/dL 01/13/2025 11:12 AM [facility] HEMATOCRIT 27.9(L) 33.0 - 51.0 % 01/13/2025 11:12 AM [facility] MCV 90 80 - 100 fL 01/13/2025 11:12 AM [facility] MCH 29.4 26.0 - 34.0 pg 01/13/2025 11:12 AM [facility] MCHC 32.6 32.0 - 36.0 g/dL 01/13/2025 11:12 AM [facility] RDW 13.4 11.5 - 15.5 % 01/13/2025 11:12 AM [facility] PLATELET COUNT 408 140 - 440 thou/cu mm 01/13/2025 11:12 AM [facility] MPV 7.7 6.5 - 11.0 fL 01/13/2025 11:12 AM [facility] NRBC 0.0 % 01/13/2025 11:12 AM [facility] ABS NRBC 0.0 thou /cu mm 01/13/2025 11:12 AM [facility] Blood BLOOD SPECIMEN / Unknown Venipuncture / Unknown 01/13/2025 10:58 AM DIGITAL MARKETER 01/13/2025 11:06 AM [facility] Ed Chavez MD HEMATOLOGY Final R esult Performing Organization Address City/[facility] Co de Phone Number [facility] [address] [address], [place] * POTASSIUM (01/13/2025 10:58 AM DIGITAL MARKETER) Only the most recent of7 resultswithin the time period is included. POTASSIUM 3.9 3.5 - 5.1 mmol/L 01/13/2025 11:37 AM DIGITAL MARKETER [facility] Blood BLOOD SPECIMEN / Unknown Venipuncture / Unknown 01/13/2025 10:58 AM DIGITAL MARKETER 01/13/2025 11:06 AM DIGITAL MARKETER Ed Chavez MD CHEMISTRY Final R [facility] Performing Organization Address [facility] de Phone Number [facility] [address] [address], [place] * CREATININE (01/13/2025 10:58 AM DIGITAL MARKETER) Only the most recent of2 resultswithin the time period is included. eGFR >90 >90 mL/min/1.7 3m2 01/13/2025 11:37 AM DIGITAL MARKETER [facility] Comment:As of 2022, eG FR is calculated by the CKD-EPI creatinine equation without race adjustment. eGFR can be influenced by muscle mass, exercise, and diet. The reported eGFR is an estimation only and is only applicable if the renal function is stable. CREATININE 0.59 0.50 - 0.90 mg/dL 01/13/2025 11:37 AM DIGITAL MARKETER [facility] Blood BLOOD SPECIMEN / Unknown Venipuncture / Unknown 01/13/2025 10:58 AM DIGITAL MARKETER 01/13/2025 11:06 AM DIGITAL MARKETER Ed Chavez MD CHEMISTRY [facility] Performing Organization Address [facility] Co de Phone Number [facility] [address] [place] [address], [place] * (ABNORMAL) ALT AM (01/13/2025 10:58 AM DIGITAL MARKETER) Only the most recent of2 resultswithin the time period is included. ALT (SGPT) 45(H) 10 - 35 IU/L 01/13/2025 11:37 AM DIGITAL MARKETER [facility] Blood BLOOD SPECIMEN / Unknown Venipuncture / Unknown 01/13/2025 10:58 AM DIGITAL MARKETER 01/13/2025 11:06 AM DIGITAL MARKETER Ed Chavez MD CHEMISTRY Final R esult Performing Organization Address City/[facility]/ZIP Co de Phone Number [facility] [address] [place] [address], [place] * AST AM (01/13/2025 10:58 AM DIGITAL MARKETER) Only the most recent of2 resultswithin the time period is included. AST (SGOT) 27 10 - 35 IU/L 01/13/2025 11:37 AM DIGITAL MARKETER [facility] Blood BLOOD SPECIMEN / Unknown Venipuncture / Unknown 01/13/2025 10:58 AM DIGITAL MARKETER 01/13/2025 11:06 AM DIGITAL MARKETER Ed Chavez MD CHEMISTRY Final [facility] Performing Organization Address City/[facility] Co de Phone Number [facility] [address] [place] [address], [place] * (ABNORMAL) Alk phosphatase AM (01/13/2025 10:58 AM DIGITAL MARKETER) Only the most recent of2 resultswithin the time period is included. ALK PHOSPHATASE 110(H) 35 - 104 IU/L 01/13/2025 11:37 AM DIGITAL MARKETER [facility] Blood BLOOD SPECIMEN / Unknown Venipuncture / Unknown 01/13/2025 10:58 AM DIGITAL MARKETER 01/13/2025 11:06 AM DIGITAL MARKETER Ed Chavez MD CHEMISTRY Final R esult Performing Organization Address City/[facility]/ZIP Co de Phone Number [facility] [address] [address], [place] * Ammonia AM (01/13/2025 10:58 AM DIGITAL MARKETER) AMMONIA 18 16 - 60 umol/L 01/13/2025 11:29 AM DIGITAL MARKETER [facility] Blood BLOOD SPECIMEN / Unknown Venipuncture / Unknown 01/13/2025 10:58 AM DIGITAL MARKETER 01/13/2025 11:06 AM DIGITAL MARKETER Narrative [facility] - 01/13/2025 11:29 AM DIGITAL MARKETER 1. Sulfasalazine and its metabolite Sulfapyridine at therapeutic concentrations may lead to falsely low results. 2. Temozolomide and its metabolite MTIC may lead to falsely elevated results, and its metabolite AIC may lead to falsely low results. Ed Chavez MD CHEMISTRY Final R esult Performing Organization Address City/[facility]/ZIP Co de Phone Number [facility] [address] [id number], [place] * PHOSPHORUS (01/10/2025 6:46 AM DIGITAL MARKETER) Only the most recent of10 resultswithin the time period is included. PHOSPHORUS 3.6 2.5 - 4.5 mg/dL 01/10/2025 7:35 AM DIGITAL MARKETER [facility] Blood BLOOD SPECIMEN / Unknown Butterfly / Unknown 01/10/2025 6:46 AM DIGITAL MARKETER 01/10/2025 7:01 AM DIGITAL MARKETER Pina Mendez RN CHEMISTRY Final Result Performing Organization Address City/[facility]/ZIP Co de Phone Number [facility] [address] [address], [place] * MAGNESIUM (01/10/2025 6:46 AM DIGITAL MARKETER) Only the most recent of8 resultswithin the time period is included. MAGNESIUM 2.1 1.6 - 2.4 mg/dL 01/10/2025 7:35 AM DIGITAL MARKETER [facility] Blood BLOOD SPECIMEN / Unknown Butterfly / Unknown 01/10/2025 6:46 AM DIGITAL MARKETER 01/10/2025 7:01 AM DIGITAL MARKETER Pina Mendez RN CHEMISTRY Final Result Performing Organization Address City/[facility]/ZIP Co de Phone Number [facility] [address] [address], [place] * (ABNORMAL) HEPATIC FUNCTION PANEL (01/10/2025 6:46 AM DIGITAL MARKETER) Only the most recent of3 resultswithin the time period is included. ALBUMIN 3.7(L) 4.0 - 4.9 g/dL 01/10/2025 12:18 PM DIGITAL MARKETER [facility] PROTEIN,TOTAL 7.0 6.0 - 8.0 g/dL 01/10/2025 12:18 PM DIGITAL MARKETER [facility] BILIRUBIN,TOTAL 0.5 0.0 - 1.2 mg/dL 01/10/2025 12:18 PM DIGITAL MARKETER [facility] BILIRUBIN,DIRECT 0.2 0.0 - 0.2 mg/dL 01/10/2025 12:18 PM DIGITAL MARKETER [facility] BILIRUBIN,INDIRE CT 0.3 0.2 - 0.8 mg/dL 01/10/2025 12:18 PM DIGITAL MARKETER [facility] ALK PHOSPHATASE 129(H) 35 - 104 IU/L 01/10/2025 12:18 PM DIGITAL MARKETER [facility] ALT (SGPT) 59(H) 10 - 35 IU/L 01/10/2025 12:18 PM DIGITAL MARKETER [facility] AST (SGOT) 34 10 - 35 IU/L 01/10/2025 12:18 PM DIGITAL MARKETER [facility] Blood BLOOD SPECIMEN / Unknown Butterfly / Unknown 01/10/2025 6:46 AM DIGITAL MARKETER 01/10/2025 7:01 AM DIGITAL MARKETER us Hernan Singh DO CHEMISTRY Final Result [facility] [address] [place] [address] * (ABNORMAL) Basic metabolic panel AM (01/09/2025 6:17 AM [facility]) Only the most recent of9 resultswithin the time period is included. SODIUM 136 136 - 145 mmol/L 01/09/2025 6:57 AM [facility] POTASSIUM 3.7 3.5 - 5.1 mmol/L 01/09/2025 6:57 AM [facility] CHLORIDE 100 98 - 107 mmol/L 01/09/2025 6:57 AM [facility] CO2,TOTAL 24 22 - 29 mmol/L 01/09/2025 6:57 AM [facility] ANION GAP 12 5 - 18 01/09/2025 6:57 AM [facility] GLUCOSE 111(H) 70 - 99 mg/dL 01/09/2025 6:57 AM [facility] CALCIUM 9.0 8.8 - 10.4 mg/dL 01/09/2025 6:57 AM [facility] Comment: Reference ranges for this test were updated on 09/24/2024 to reflect our healthy population more accurately. Reference range changes are not retroactively applied to results, but previous results using the same methodology can be interpreted in the context of the new reference range. BUN 9 8 - 23 mg/dL 01/09/2025 6:57 AM [facility] CREATININE 0.38(L) 0.50 - 0.90 mg/dL 01/09/2025 6:57 AM [facility] BUN/CREAT RATIO 24(H) 10 - 20 6:57 AM [facility] eGFR >90 >90 mL/min/1. 73m2 01/09/2025 6:57 AM [facility] Comment:As of 2022, eG FR is calculated by the CKD-EPI creatinine equation without race adjustment. eGFR can be influenced by muscle mass, exercise, and diet. The reported eGFR is an estimation only and is only applicable if the renal function is stable. Blood BLOOD SPECIMEN / Unknown Non-Lab Venipuncture / Unknown 01/09/2025 6:17 AM DIGITAL MARKETER 01/09/2025 6:27 AM DIGITAL MARKETER Ed Chavez MD CHEMISTRY Final R esult Performing Organization Address City/[facility]/ZIP Co de Phone Number [facility] [address] [address], [place] * (ABNORMAL) LD,TOTAL (01/07/2025 6:31 AM DIGITAL MARKETER) Pathologist [facility] LD,TOTAL 349(H) 135 - 214 IU/L 01/07/2025 7:21 AM DIGITAL MARKETER [facility] Blood BLOOD SPECIMEN / Unknown Line/Port / Unknown 01/07/2025 6:31 AM DIGITAL MARKETER 01/07/2025 6:40 AM DIGITAL MARKETER Ed Chavez MD CHEMISTRY Final [facility] Performing Organization Address [facility] Co de Phone Number [facility] [address] [address], [place] * (ABNORMAL) HAPTOGLOBIN (01/06/2025 4:02 PM DIGITAL MARKETER) Pathologist [facility] Haptoglobin 362(H) 30 - 200 mg/dL 01/06/2025 7:51 PM DIGITAL MARKETER [facility] Blood BLOOD SPECIMEN / Unknown Non-Lab Venipuncture / Unknown 01/06/2025 4:02 PM DIGITAL MARKETER 01/06/2025 4:09 PM DIGITAL MARKETER Ed Chavez MD CHEMISTRY Final R esult Performing Organization Address [facility] Co de Phone Number [facility] [address] [address], [place] * Platelets AM (01/06/2025 4:16 AM DIGITAL MARKETER) Only the most recent of3 resultswithin the time period is included. Pathologist [facility] PLATELET COUNT 298 140 - 440 thou/cu mm 01/06/2025 4:39 AM DIGITAL MARKETER [facility] MPV 8.0 6.5 - 11.0 fL 01/06/2025 4:39 AM DIGITAL MARKETER [facility] Blood BLOOD SPECIMEN / Unknown Line/Port / Unknown 01/06/2025 4:16 AM DIGITAL MARKETER 01/06/2025 4:29 AM DIGITAL MARKETER Ed Chavez MD HEMATOLOGY Final R esult Performing Organization Address City/[facility] Co de Phone Number [facility] [address] [address], [place] * WBC AM (01/06/2025 4:16 AM DIGITAL MARKETER) Only the most recent of6 resultswithin the time period is included. WHITE BLOOD COUNT 9.6 4.5 - 11.0 thou/cu mm 01/06/2025 4:39 AM DIGITAL MARKETER [facility] NRBC 0.0 % 01/06/2025 4:39 AM DIGITAL MARKETER [facility] ABS NRBC 0.0 thou /cu mm 01/06/2025 4:39 AM DIGITAL MARKETER [facility] Blood BLOOD SPECIMEN / Unknown Line/Port / Unknown 01/06/2025 4:16 AM DIGITAL MARKETER 01/06/2025 4:29 AM DIGITAL MARKETER Ed Chavez MD HEMATOLOGY Final R [facility] Performing Organization Address [facility] Co de Phone Number [facility] [address] [phone], [place] * (ABNORMAL) RETICULOCYTES (01/06/2025 4:16 AM DIGITAL MARKETER) RETIC% 2.3(H) 0.5 - 1.5 % 01/06/2025 12:48 PM DIGITAL MARKETER [facility] RETIC (ABSOLUTE) 0.07 0.03 - 0.08 mil/cu mm 01/06/2025 12:48 PM DIGITAL MARKETER [facility] Blood BLOOD SPECIMEN / Unknown Line/Port / Unknown 01/06/2025 4:16 AM DIGITAL MARKETER 01/06/2025 4:29 AM DIGITAL MARKETER us Ed Chavez MD HEMATOLOGY Final R esult [facility] [address] [place] [address], [place] * [place] Venous doppler BILATERAL lower extremity (01/05/2025 10:07 AM DIGITAL MARKETER) Anatomical Region Laterality Modality LEGS, LEG L, LEG R Ultrasound 01/05/2025 10:1 9 AM DIGITAL MARKETER Impressions 01/05/2025 10:19 AM DIGITAL MARKETER : Unremarkable ultrasound of the bilateral lower extremity veins. No sign of venous thrombus. Dictated by Carlos Shi MD @ 01/05/2025 10:19:47 AM (Electronically Signed) Narrative 01/05/2025 10:19 AM DIGITAL MARKETER For Patients: As a result of the Cures Act, medical imaging exams and procedure reports are released immediately into your electronic medical record. You may view this report before your referring provider. If you have questions, please contact your health care provider. INDICATION: Leg pain and swelling. TECHNIQUE: Ultrasound venous duplex bilateral lower extremity. Compression venous exam was performed using sharma-scale, color Doppler, and spectral Doppler analysis. COMPARISON: None. FINDINGS: Deep veins: The bilateral common femoral, superficial femoral, deep femoral, popliteal, and posterior tibial veins are fully compressible and patent. Superficial veins: Greater saphenous vein is fully compressible. No popliteal cyst. Procedure Note Carlos Shi MD - 01/05/2025 For Patients: As a result of the Cures Act, medical imagingexams and procedure reports are released immediately into your electronicmedical record. You may view this report before your referring provider.If you have questions, please contact your health care provider. INDICATION: Leg pain and swelling. TECHNIQUE: Ultrasound venous duplex bilateral lower extremity. Compression venousexam was performed using sharma-scale, color Doppler, and spectral Doppleranalysis. COMPARISON: None. FINDINGS: Deep veins: The bilateral common femoral, superficial femoral, deepfemoral, popliteal, and posterior tibial veins are fully compressible andpatent. Superficial veins: Greater saphenous vein is fully compressible. No popliteal cyst. IMPRESSION: : Unremarkable ultrasound of the bilateral lower extremity veins. No sign ofvenous thrombus. Dictated by Carlos Shi MD @ 01/05/2025 10:19:47 AM (Electronically Signed) Ed Chavez MD Final R esult * PROCALCITONIN (01/05/2025 9:30 AM DIGITAL MARKETER) PROCALCITONIN 0.14 ng/ml 01/05/2025 10:12 AM DIGITAL MARKETER [facility] Blood BLOOD SPECIMEN / Unknown Non-Lab Venipuncture / Unknown 01/05/2025 9:30 AM DIGITAL MARKETER 01/05/2025 9:36 AM DIGITAL MARKETER [facility] - 01/05/2025 10:12 AM DIGITAL MARKETER Procalcitonin for initial assessment of Lower Respiratory Tract Infection: Results Interpretation <0.10 ng/mL Antibiotic therapy strongly discoraged. Indicates absent of bacterial infection. * 0.10 - 0.25 ng/mL Antibiotic therapy discouraged. Bacterial infection unlikely. * 0.26 - 0.50 ng/mL Antibiotic therapy encouraged. Bacterial infection possible. >0.50 ng/mL Antibiotic therapy strongly encouraged. Suggestive of presence of bacterial infection. *Antibiotic therapy should be considered regardless of PCT result if the patient is clinically unstable, is at high risk for adverse outcome, has strong evidence of bacterial pathogen, or the clinical context indicates antibiotic therapy is warranted. If antibiotics are withheld, reassess if symptoms persist/worsen and/or repeat PCT measurement within 6-24 hours. In order to assess treatment success and to support a decision to discontinue antibiotic therapy, follow up samples should be tested once every 1-2 days, based upon physician discretion taking into account patient's evolution and progress. Procalcitonin for initial assessment of severe sepsis risk: Results Interpretation <0.5 ng/ml A PCT level below 0.5 ng/ml on the first day of ICU admission is associated with a low risk for progression to severe sepsis and/or septic shock. > 2.0 ng/mL A PCT level above 2.0 ng/mL on the first day of ICU admission is associated with a high risk for progression to severe sepsis and/or septic shock. Note: Concentrations < 0.5 ng/mL do not exclude an infection, on account of localized infections (without systemic signs) which can be associated with such low concentrations, or a systemic infection in its initial stages(< 6 hours). Furthermore, increased procalcitonin can occur without infection. PCT concentrations between 0.5 and 2.0 ng/mL should be interpreted taking into account the patient's history. It is recommended to retest PCT within 6-24 hours if any concentrations < 2 ng/mL are obtained. Ed Chavez MD SEND OUTS Final R esult Performing Organization Address [facility] Co de Phone Number [facility] [address] [phone], [place] * Electrolyte panel AM (01/05/2025 9:30 AM DIGITAL MARKETER) [facility] SODIUM 137 136 - 145 mmol/L 01/05/2025 3:42 PM DIGITAL MARKETER [facility] POTASSIUM 4.0 3.5 - 5.1 mmol/L 01/05/2025 3:42 PM DIGITAL MARKETER [facility] CHLORIDE 104 98 - 107 mmol/L 01/05/2025 3:42 PM DIGITAL MARKETER [facility] CO2,TOTAL 22 22 - 29 mmol/L 01/05/2025 3:42 PM DIGITAL MARKETER [facility] ANION GAP 11 5 - 18 01/05/2025 3:42 PM DIGITAL MARKETER [facility] Blood BLOOD SPECIMEN / Unknown Non-Lab Venipuncture / Unknown 01/05/2025 9:30 AM DIGITAL MARKETER 01/05/2025 9:36 AM DIGITAL MARKETER Ed Chavez MD CHEMISTRY Final R esult Performing Organization Address [facility] Co de Phone Number [facility] [address] [address], [place] * (ABNORMAL) GLUCOSE METER (01/05/2025 7:55 AM DIGITAL MARKETER) Only the most recent of35 resultswithin the time period is included. GLUCOSE METER 144(H) 65 - 100 mg/dL 01/05/2025 7:56 AM DIGITAL MARKETER [facility] Blood BLOOD SPECIMEN / Unknown 01/05/2025 7:55 AM DIGITAL MARKETER 01/05/2025 7:56 AM DIGITAL MARKETER Ed Chavez MD CHEMISTRY Final R esult Performing Organization Address [facility] de Phone Number [facility] [address] [address], [place] * SODIUM,RANDOM URINE (01/04/2025 11:02 AM DIGITAL MARKETER) Only the most recent of2 resultswithin the time period is included. SODIUM,RANDOM URINE 92 mmol/L 01/04/2025 12:28 PM DIGITAL MARKETER [facility] Comment:No Reference Range D efined. Urine URINE SPECIMEN / Unknown Non-Blood / Unknown 01/04/2025 11:02 AM DIGITAL MARKETER 01/04/2025 11:44 AM DIGITAL MARKETER Ed Chavez MD URINE Final R esult Performing Organization Address [facility] de Phone Number [facility] [address] [address], [place] * Osmolality, urine TODAY (01/04/2025 11:02 AM DIGITAL MARKETER) Only the most recent of2 resultswithin the time period is included. OSMOLALITY,URI NE 843 50 - 1,400 mOsmol/kg 01/04/2025 12:18 PM DIGITAL MARKETER [facility] Urine URINE SPECIMEN / Unknown Non-Blood / Unknown 01/04/2025 11:02 AM DIGITAL MARKETER 01/04/2025 11:44 AM DIGITAL MARKETER Ed Chavez MD URINE Final R esult Performing Organization Address [facility] de Phone Number [facility] [address] [place] [address], * (ABNORMAL) Osmolality, serum TODAY (01/04/2025 11:02 AM DIGITAL MARKETER) OSMOLALITY 302(H) 275 - 300 mOsmol/kg 01/04/2025 1:22 PM DIGITAL MARKETER [facility] Comment:This is a corrected result. Previously reported as 843 mOsmol/kg with reference range 275-300 mOsmol/kg on 01/04/2025 at 1222 DIGITAL MARKETER Blood BLOOD SPECIMEN / Unknown Non-Lab Venipuncture / Unknown 01/04/2025 11:02 AM DIGITAL MARKETER 01/04/2025 11:22 AM DIGITAL MARKETER us Ed Chavez MD CHEMISTRY Edited Result - Final [facility] [address] [place] [address], [place] * CT HEAD BRAIN WO (01/03/2025 4:02 PM DIGITAL MARKETER) Only the most recent of5 resultswithin the time period is included. Anatomical Region Laterality Modality HEAD, BRAIN Computed Tomogra phy 01/03/2025 4:19 PM DIGITAL MARKETER Impressions 01/03/2025 4:19 PM DIGITAL MARKETER 1. Stable size of the right occipital intraparenchymal hematoma, with decreased attenuation and ill-defined margins. 2. No new/enlarging intracranial hemorrhage. Similar small volume intraventricular blood products. Decreased subdural blood products. Please note that all CT scans at this facility use dose modulation, iterative reconstruction, and/or weight-based dosing when appropriate to reduce radiation dose to as low as reasonably achievable. Dictated by Bettie Renteria MD @ 01/03/2025 4:19:39 PM (Electronically Signed) Narrative 01/03/2025 4:19 PM DIGITAL MARKETER For Patients: As a result of the Cures Act, medical imaging exams and procedure reports are released immediately into your electronic medical record. You may view this report before your referring provider. If you have questions, please contact your health care provider. INDICATION: Headache, neuro deficit TECHNIQUE: Noncontrast axial CT of the head. Coronal and sagittal reformats. Bone and soft tissue algorithms. COMPARISON: CT head 01/01/2025 FINDINGS: Slightly decreased attenuation and more ill-defined margins of the right occipital intraparenchymal hematoma, otherwise grossly similar in size relative to the 01/01/2025 exam. Similar extension into the right lateral ventricle, with trace blood products in the left occipital horn. Similar ventricular caliber. Subdural blood products along the interhemispheric falx and right tentorial leaflet are modestly decreased, with trace residual. No new/enlarging intracranial hemorrhage. Similar parenchymal edema surrounding the hematoma. Preserved sharma-white matter differentiation. Intact calvarium. Left NG tube. No obstructive paranasal sinus disease or mastoid effusion. Bilateral lens implants. Procedure Note Bettie Renteria, DO - 01/03/2025 For Patients: As a result of the Cures Act, medical imagingexams and procedure reports are released immediately into your electronicmedical record. You may view this report before your referring provider.If you have questions, please contact your health care provider. INDICATION: Headache, neuro deficit TECHNIQUE: Noncontrast axial CT of the head. Coronal and sagittal reformats. Bone andsoft tissue algorithms. COMPARISON: CT head 01/01/2025 FINDINGS: Slightly decreased attenuation and more ill-defined margins of the rightoccipital intraparenchymal hematoma, otherwise grossly similar in sizerelative to the 01/01/2025 exam. Similar extension into the right lateralventricle, with trace blood products in the left occipital horn. Similarventricular caliber. Subdural blood products along the interhemisphericfalx and right tentorial leaflet are modestly decreased, with traceresidual. No new/enlarging intracranial hemorrhage. Similar parenchymaledema surrounding the hematoma. Preserved sharma-white matterdifferentiation. Intact calvarium. Left NG tube. No obstructive paranasalsinus disease or mastoid effusion. Bilateral lens implants. IMPRESSION: 1. Stable size of the right occipital intraparenchymal hematoma, withdecreased attenuation and ill-defined margins. 2. No new/enlarging intracranial hemorrhage. Similar small volumeintraventricular blood products. Decreased subdural blood products. Please note that all CT scans at this facility use dose modulation,iterative reconstruction, and/or weight-based dosing when appropriate toreduce radiation dose to as low as reasonably achievable. Dictated by Bettie Renteria MD @ 01/03/2025 4:19:39 PM (Electronically Signed) us Ed Chavez MD CT Final R esult * INSERT PICC LINE (01/01/2025 5:41 PM DIGITAL MARKETER) Narrative Kelechi Arora RN - 01/01/2025 5:41 PM DIGITAL MARKETER Kelechi Arora RN 01/01/2025 5:45 PM PICC Line Insertion Note 01/01/2025 5:41 PM Procedure education reviewed: Unable to discuss, due to patient condition and family not present., discussed with: Authorized media sales representative face to face. Family face to face confirms understanding of procedure. Hip Hop Dance Instructor used: No Reason for insertion: MD order and Vasoactive Medications Medical/ Surgical/ Allergies History reviewed: Yes. Preprocedure Verification: Yes 1) Provider Order verified 2) Patient identity verified; 3) side/site/procedure confirmed; 4) relevant information/documentation available, reviewed and properly matched to the patient; 5) For PICC insertions, consent accurate and complete or verified provider has ordered emergent placement; 6) equipment and supplies available Site Marking: Yes Site marked if not in continuous attendance with the patient Time Out: Yes Time out was conducted just prior to starting procedure to verify the four required elements: 1) patient name and date of 2) confirmation that the correct side/site are marked if applicable, including visualization of the site keith 3) name of procedure including laterality if applicable, and 4) essential imaging and results are properly labeled and appropriately displayed, if applicable. Site assessment pre-insertion: Intact. Local anesthetic used at site: Yes, 1% Lidocaine. The following Central Line Insertion Checklist was used: Hand Hygiene: Yes Maximal Barrier Precautions including Sterile Gown, Hat and Mask: Yes Full Body Drape: Yes Site cleansed with: Chlorhexidine gluconate prep. PICC Line 2 Lumen Right;Basilic;Upper Arm PICC/SVC (Active) 01/01/25 1509 Right;Basilic;Upper Arm (IA) Lumen One Designation: (IA) Lumen Two Designation: Lumen One Designation: Red Lumen Two Designation: Purple Vessel Diameter: .40 [id number] Ratio (%): Visible Catheter Length (cm): 0 cm Placed/Present Prior to Encounter: (IA) Placed Prior to Admission?: Type: Valved Catheter (IA) Size: Tip Location: PICC/SVC PICC Mid-Arm Circumference (cm): 22.5 cm Total Length of Catheter (cm): 36 cm Insertion Attempts: 1 (IA) Insertion Attempts: Local Anesthetic: Injectable Placement Verification: ECG;Blood Return;Ultrasound Removed Catheter Length (cm): Removed/Resolved Prior to Encounter: Visible Catheter Length (cm) 0 cm 01/01/251739 Arm Circumference (cm) 22.5 cm 01/01/251739 Status Lumen One Blood Return;Cap Changed;Capped/Locked 01/01/251739 Status Lumen Two Blood Return;Cap Changed;Capped/Locked 01/01/251739 Site Description Dry/Flat;Covered 01/01/251739 Line Intervention New dressing applied and NO hemostatic agent/gauze 01/01/251739 Dressing change due date 01/08/2025 01/01/251739 Line Apparel Pattern Maker Name: Bard Line Type: Valved Power PICC Lot Number: [id number] Access Assistance:Modified Seldinger Technique (Micro-Introducer) WITHOUT Dermatotomy (skin salvatore), Ultrasound Guidance, and Tip confirmation system/ECG Post-insertion: Able to remove guidewire: Smoothly. Able to aspirate blood in each lumen: Yes Able to flush catheter without resistance in each lumen: Yes Each lumen flushed with: 20 ml(s) of 0.9% saline, and no Heparin. Cap applied to each lumen: Yes Line secured with: Stat-Lock and Tape Hospital dressing policy/procedure followed. PICC Line standing orders implemented: Yes X- ray pending: No, tip confirmed with ECG Insertion complications: Pt confused, unable to follow commands Patient tolerated the procedure: Yes PICC education reviewed: Unable to discuss due to patient condition and family not present us Ed Chavez MD IV ORD Final R esult * CORTISOL TOTAL (01/01/2025 4:37 PM DIGITAL MARKETER) Pathologist [facility] CORTISOL,TOTAL 23.7 ug/dL 01/01/2025 5:35 PM DIGITAL MARKETER [facility] Blood BLOOD SPECIMEN / Unknown Butterfly / Unknown 01/01/2025 4:37 PM DIGITAL MARKETER 01/01/2025 4:43 PM DIGITAL MARKETER Narrative [facility] - 01/01/2025 5:35 PM DIGITAL MARKETER Cortisol Morning Hours 6:00 AM - 10:00 AM (4.8-19.5 ug/dL) Cortisol Afternoon Hours 4:00 PM - 8:00 PM (2.5-11.9 ug/dL) Biotin supplements may cause clinically significant interference for this test assay. If interference is suspected, it is strongly recommended that biotin is discontinued for at least one week prior to retesting. Ed Chavez MD CHEMISTRY Final R esult Performing Organization Address [facility] Co de Phone Number [facility] [address] [place] [id number], [place] * TSH FOR ADD ON (01/01/2025 11:17 AM DIGITAL MARKETER) TSH 1.97 0.27 - 4.20 uIU/mL 01/01/2025 4:19 PM DIGITAL MARKETER [facility] Blood BLOOD SPECIMEN / Unknown Butterfly / Unknown 01/01/2025 11:17 AM DIGITAL MARKETER 01/01/2025 11:35 AM DIGITAL MARKETER Narrative [facility] - 01/01/2025 4:19 PM DIGITAL MARKETER In Adults, TSH values between 5.00 and 10.00 uIU/ml do not necessarily indicate the presence of Hypothyroidism. Correlation with clinical findings such as presence of goiter and/or Thyroperoxidase (TPO) Antibody may be helpful. For more information please refer to REHANA 2004; 291: [phone]. Ed Chavez MD CHEMISTRY Final R esult Performing Organization Address [facility]/ZIP Co de Phone Number [facility] [address] [place] [phone], [place] * CT CHEST ABDOMEN PELVIS W (12/31/2024 4:48 PM DIGITAL MARKETER) Anatomical Region Laterality Modality Abdomen, Pelvis, AORTA, LIVER, SPLEEN, CHEST Computed Tomography 12/31/2024 8:51 PM DIGITAL MARKETER Narrative 12/31/2024 8:51 PM DIGITAL MARKETER For Patients: As a result of the Cures Act, medical imaging exams and procedure reports are released immediately into your electronic medical record. You may view this report before your referring provider. If you have questions, please contact your health care provider. Indication: Sepsis fever unclear source has gi symptoms Technique: CT chest/abdomen/pelvis with IV contrast, utilizing 100 mL Omnipaque 350 Comparison: None Findings: Chest: No thyroid nodules. No thoracic lymphadenopathy. The heart is within normal limits in size. No pericardial effusion. The thoracic aorta and pulmonary artery are normal in caliber. There is no appreciable pulmonary embolism. No focal airspace consolidation. Small bilateral pleural effusions with minimal adjacent atelectatic lung. No suspicious pulmonary nodules or masses. The airways are clear. Abdomen/pelvis: The liver, gallbladder and biliary system, spleen, pancreas, adrenal glands, kidneys, and visualized ureters are unremarkable in appearance. The bladder is decompressed with a Houston catheter. Appropriately positioned enteric tube. There is no evidence of bowel obstruction or inflammation. No free air, significant free fluid, or abscess. No abdominopelvic lymphadenopathy. The vasculature is unremarkable. Soft tissue/musculoskeletal: No acute abnormality. Multilevel degenerative changes of the spine. Bilateral total hip arthroplasties. Impression: 1. Small bilateral pleural effusions with minimal adjacent atelectatic lung. A superimposed infectious/inflammatory process in the atelectatic lung can not be excluded in the appropriate clinical context. 2. No CT evidence of an acute process involving the abdomen or pelvis. 3. Incidental findings as detailed above. Please note that all CT scans at this facility use dose modulation, iterative reconstruction, and/or weight-based dosing when appropriate to reduce radiation dose to as low as reasonably achievable. Dictated by Andres Carty MD @ 12/31/2024 8:51:30 PM (Electronically Signed) Procedure Note Andres Carty MD - 12/31/2024 For Patients: As a result of the Cures Act, medical imagingexams and procedure reports are released immediately into your electronicmedical record. You may view this report before your referring provider.If you have questions, please contact your health care provider. Indication: Sepsis fever unclear source has gi symptoms Technique: CT chest/abdomen/pelvis with IV contrast, utilizing 100 mL Omnipaque 350 Comparison: None Findings: Chest: No thyroid nodules. No thoracic lymphadenopathy. The heart is within normal limits in size. No pericardial effusion. Thethoracic aorta and pulmonary artery are normal in caliber. There is noappreciable pulmonary embolism. No focal airspace consolidation. Small bilateral pleural effusions withminimal adjacent atelectatic lung. No suspicious pulmonary nodules ormasses. The airways are clear. Abdomen/pelvis: The liver, gallbladder and biliary system, spleen, pancreas, adrenalglands, kidneys, and visualized ureters are unremarkable in appearance.The bladder is decompressed with a Houston catheter. Appropriately positioned enteric tube. There is no evidence of bowelobstruction or inflammation. No free air, significant free fluid, orabscess. No abdominopelvic lymphadenopathy. The vasculature is unremarkable. Soft tissue/musculoskeletal: No acute abnormality. Multilevel degenerative changes of the spine.Bilateral total hip arthroplasties. Impression: 1. Small bilateral pleural effusions with minimal adjacent atelectaticlung. A superimposed infectious/inflammatory process in the atelectaticlung can not be excluded in the appropriate clinical context. 2. No CT evidence of an acute process involving the abdomen or pelvis. 3. Incidental findings as detailed above. Please note that all CT scans at this facility use dose modulation,iterative reconstruction, and/or weight-based dosing when appropriate toreduce radiation dose to as low as reasonably achievable. Dictated by Andres Carty MD @ 12/31/2024 8:51:30 PM (Electronically Signed) Ed Chavez MD CT Final R esult * Blood culture (12/31/2024 12:29 PM DIGITAL MARKETER) Only the most recent of2 resultswithin the time period is included. CULTURE No Growth. 01/05/2025 2:55 PM DIGITAL MARKETER [facility] Blood BLOOD SPECIMEN / Unknown Non-Lab Venipuncture / Unknown 12/31/2024 12:29 PM DIGITAL MARKETER 12/31/2024 12:40 PM DIGITAL MARKETER N[facility]ative [facility] - 01/05/2025 2:55 PM DIGITAL MARKETER Low volume blood culture received; possible false negative culture. us Ed Chavez MD MICROBIOLOGY Final R esult Performing Organization Address City/[facility]/ZIP Co de Phone Number [facility] [address] [place] [address], * COVID/FLU/RSV PANEL (12/30/2024 10:17 AM DIGITAL MARKETER) COVID 19 [place] [facility]LECULAR Negative Negative 12/30/2024 11:34 AM DIGITAL MARKETER [facility] Comment:All PCR tests are rae bject to false negative result due to variability in viral load and collection technique. A negative result does not rule out a SARS-CoV-2 infection. Clinical correlation required. INFLUENZA A PCR Negative 11:34 AM DIGITAL MARKETER [facility] INFLUENZA B PCR Negative 11:34 AM DIGITAL MARKETER [facility] Respiratory Syncytial Virus Negative 12/30/2024 11:34 AM DIGITAL MARKETER [facility] Swab NASOPHARYNGEAL SWAB / Unknown Non-Blood / Unknown 12/30/2024 10:17 AM DIGITAL MARKETER 12/30/2024 10:31 AM DIGITAL MARKETER Ed Chavez MD MICROBIOLOGY Final R esult [facility] [address] [place] [address], * URINALYSIS MICROSCOPIC (12/29/2024 2:21 PM DIGITAL MARKETER) RBC 0-2 0-2, None Seen /HPF 12/29/2024 2:31 PM DIGITAL MARKETER [facility] WBC 3-5 0-2, 3-5, None Seen /HPF 12/29/2024 2:31 PM DIGITAL MARKETER [facility] BACTERIA None Seen None Seen, Rare, Few Bacteria/ HPF 12/29/2024 2:31 PM DIGITAL MARKETER [facility] EPITHELIAL CELLS None Seen None Seen, Few Epi/HPF 12/29/2024 2:31 PM DIGITAL MARKETER [facility] HYALINE CASTS 0-2 0-2, 3-5 /LPF 12/29/2024 2:31 PM DIGITAL MARKETER [facility] Urine URINE SPECIMEN / Unknown Non-Blood / Unknown 12/29/2024 2:21 PM DIGITAL MARKETER 12/29/2024 2:21 PM DIGITAL MARKETER Tino Lemus MD URINE Final Re sult [facility] [address] [id number], [place] * (ABNORMAL) Urinalysis TODAY (12/29/2024 2:21 PM DIGITAL MARKETER) Only the most recent of2 resultswithin the time period is included. COLOR Yellow Yellow Color 12/29/2024 2:31 PM [facility] CLARITY Clear Clear Clarity 12/29/2024 2:31 PM [facility] SPECIFIC GRAVITY,URINE <=1.005(A) 1.010, 1.015, 1.020, 1.025 12/29/2024 2:31 PM DIGITAL MARKETER [facility] PH,URINE 8.0 6.0, 7.0, 8.0, 5.5, 6.5, 7.5, 8.5 12/29/2024 2:31 PM [facility] UROBILINOGEN, QUALITATIVE Normal Normal EU/dl 12/29/2024 2:31 PM [facility] PROTEIN, URINE Negative Negative mg/dL 12/29/2024 2:31 PM [facility] GLUCOSE, URINE Negative Negative mg/dL 12/29/2024 2:31 PM [facility] KETONES,URINE Negative Negative mg/dL 12/29/2024 2:31 PM DIGITAL MARKETER [facility] BILIRUBIN,URI NE Negative Negative 12/29/2024 2:31 PM DIGITAL MARKETER [facility] OCCULT BLOOD,URINE Negative Negative 12/29/2024 2:31 PM [facility] NITRITE Negative Negative 12/29/2024 2:31 PM [facility] LEUKOCYTE ESTERASE Small(A) Negative 12/29/2024 2:31 PM DIGITAL MARKETER [facility] Urine URINE SPECIMEN / Unknown Non-Blood / Unknown 12/29/2024 2:21 PM DIGITAL MARKETER 12/29/2024 2:21 PM DIGITAL MARKETER Tino Lemus MD URINE Final Re sult [facility] [address] [place] [address], [place] * XR ABDOMEN 1 VIEW PORTABLE (12/28/2024 6:33 PM DIGITAL MARKETER) Anatomical Region Laterality Modality Abdomen Digital Radiogra phy 12/28/2024 6:59 PM DIGITAL MARKETER Impressions 12/28/2024 6:59 PM DIGITAL MARKETER Enteric tube tip in the proximal stomach. Dictated by Frederick Spencer MD @ 12/28/2024 6:59:22 PM (Electronically Signed) Narrative 12/28/2024 6:59 PM DIGITAL MARKETER For Patients: As a result of the Cures Act, medical imaging exams and procedure reports are released immediately into your electronic medical record. You may view this report before your referring provider. If you have questions, please contact your health care provider. INDICATION: Tube placement. TECHNIQUE: Single supine view of the lower chest and abdomen. FINDINGS: Enteric tube tip in the proximal stomach. Left hip arthroplasty incompletely visualized. There appears to be a thoracolumbar scoliosis. Old right lower lateral rib fractures Procedure Note Frederick Spencer MD - 12/28/2024 For Patients: As a result of the Cures Act, medical imagingexams and procedure reports are released immediately into your electronicmedical record. You may view this report before your referring provider.If you have questions, please contact your health care provider. INDICATION: Tube placement. TECHNIQUE: Single supine view of the lower chest and abdomen. FINDINGS: Enteric tube tip in the proximal stomach. Left hip arthroplasty incompletely visualized. There appears to be a thoracolumbar scoliosis. Old right lower lateral rib fractures IMPRESSION: Enteric tube tip in the proximal stomach. Dictated by Frederick Spencer MD @ 12/28/2024 6:59:22 PM (Electronically Signed) us Angie Holm MD GENERAL IMAGING Final Result * SCAN-CARDIAC STRIP (12/28/2024 7:30 AM DIGITAL MARKETER) us Scanner OTHER Final Result * SCAN-RADIOLOGY REPORT (12/28/2024 12:00 AM DIGITAL MARKETER) Anatomical Region Laterality Modality Other Narrative 12/28/2024 12:00 AM DIGITAL MARKETER Ordered by an unspecified provider. us Other Clinical Staff OTHER Final Resul t * MR BRAIN WO CONTRAST (12/26/2024 4:45 PM DIGITAL MARKETER) Anatomical Region Laterality Modality BRAIN, HEAD Magnetic Resonan ce 12/27/2024 8:50 AM DIGITAL MARKETER Narrative 12/27/2024 8:50 AM DIGITAL MARKETER For Patients: As a result of the Century Cures Act, medical imaging exams and procedure reports are released immediately into your electronic medical record. You may view this report before your referring provider. If you have questions, please contact your health care provider. Indication: Cerebral amyloid angiopathy Technique: Multiplanar, multisequence MRI of the brain obtained without contrast. Comparison: CT head 12/26/2024, MRI brain 11/07/2005 Findings: Compared to the prior head CT, similar size of the large intraparenchymal hematoma within the right occipital lobe, with lobulated intraventricular extension of blood products into the right lateral ventricle, and small volume layering blood products in the left atrium and occipital horn. Allowing for differences in modality, similar degree of mild supratentorial ventriculomegaly. Trace FLAIR hyperintense subdural blood products are noted along the posterior right cerebral hemisphere, including along the right aspect of the interhemispheric falx and overlying the tentorial leaflet without significant mass effect. Scattered areas of superficial siderosis are noted along the left temporal, parietal, and occipital sulci, compatible with remote subarachnoid hemorrhage. No appreciable burden of parenchymal microhemorrhage. Focal and confluent regions of FLAIR hyperintensity throughout the bilateral cerebral white matter, typical of chronic microangiopathy. Unremarkable midline structures. Grossly preserved major intracranial flow voids. Unremarkable bone marrow signal. Mild mucosal thickening throughout the ethmoid air cells. No mastoid effusion. Bilateral lens implants. Impression: 1. Relative to the 12/26/2024 CT, similar large right occipital lobe intraparenchymal hematoma with intraventricular extension. 2. Similar mild supratentorial ventriculomegaly, potentially central predominant cerebral volume loss versus mild hydrocephalus. 3. Trace subdural blood products along the posterior right cerebral hemisphere. 4. 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 5. This appearance is suggestive of cerebral amyloid angiopathy. 6. Moderate chronic microangiopathy changes, with no appreciable burden of parenchymal microhemorrhage. Dictated by Bettie Renteria MD @ 12/27/2024 8:50:52 AM (Electronically Signed) Procedure Note Bettie Renteria, - 12/27/2024 For Patients: As a result of the Cures Act, medical imagingexams and procedure reports are released immediately into your electronicmedical record. You may view this report before your referring provider.If you have questions, please contact your health care provider. Indication: Cerebral amyloid angiopathy Technique: Multiplanar, multisequence MRI of the brain obtained without contrast. Comparison: CT head 12/26/2024, MRI brain 11/07/2005 Findings: Compared to the prior head CT, similar size of the large intraparenchymalhematoma within the right occipital lobe, with lobulated intraventricularextension of blood products into the right lateral ventricle, and smallvolume layering blood products in the left atrium and occipital horn.Allowing for differences in modality, similar degree of mildsupratentorial ventriculomegaly. Trace FLAIR hyperintense subdural blood products are noted along theposterior right cerebral hemisphere, including along the right aspect ofthe interhemispheric falx and overlying the tentorial leaflet withoutsignificant mass effect. Scattered areas of superficial siderosis arenoted along the left temporal, parietal, and occipital sulci, compatiblewith remote subarachnoid hemorrhage. No appreciable burden of parenchymalmicrohemorrhage. Focal and confluent regions of FLAIR hyperintensity throughout thebilateral cerebral white matter, typical of chronic microangiopathy.Unremarkable midline structures. Grossly preserved major intracranial flowvoids. Unremarkable bone marrow signal. Mild mucosal thickening throughoutthe ethmoid air cells. No mastoid effusion. Bilateral lens implants. Impression: 1. Relative to the 12/26/2024 CT, similar large right occipital lobeintraparenchymal hematoma with intraventricular extension. 2. Similar mild supratentorial ventriculomegaly, potentially centralpredominant cerebral volume loss versus mild hydrocephalus. 3. Trace subdural blood products along the posterior right cerebralhemisphere. 4. Scattered superficial siderosis along the left temporal, parietal, andoccipital sulci, compatible with remote subarachnoid hemorrhage. 5. This appearance is suggestive of cerebral amyloid angiopathy. 6. Moderate chronic microangiopathy changes, with no appreciable burden ofparenchymal microhemorrhage. Dictated by Bettie Renteria MD @ 12/27/2024 8:50:52 AM (Electronically Signed) us Marine Zamora NP MR Final Re sult * SCAN CORRESP-IMAGING (12/26/2024 10:44 AM DIGITAL MARKETER) Anatomical Region Laterality Modality Other Narrative 12/26/2024 10:44 AM DIGITAL MARKETER Ordered by an unspecified provider. us Other Clinical Staff OTHER Final Resul t * SCAN-CARDIAC STRIP (12/25/2024 10:48 PM DIGITAL MARKETER) us Scanner OTHER Final Result * SCAN-CARDIAC STRIP (12/25/2024 10:00 PM DIGITAL MARKETER) us Scanner OTHER Final Result * (ABNORMAL) CBC WITH AUTO DIFFERENTIAL (12/25/2024 9:51 PM DIGITAL MARKETER) WHITE BLOOD COUNT 12.0(H) 4.5 - 11.0 thou/cu mm 12/25/2024 10:14 PM DIGITAL MARKETER [facility] RED BLOOD COUNT 4.06 4.00 - 5.20 mil/cu mm 12/25/2024 10:14 PM DIGITAL MARKETER [facility] HEMOGLOBIN 12.1 12.0 - 16.0 g/dL 12/25/2024 10:14 PM [facility] HEMATOCRIT 37.4 33.0 - 51.0 % 12/25/2024 10:14 PM [facility] MCV 92 80 - 100 fL 12/25/2024 10:14 PM [facility] MCH 29.8 26.0 - 34.0 pg 12/25/2024 10:14 PM [facility] MCHC 32.4 32.0 - 36.0 g/dL 12/25/2024 10:14 PM [facility] RDW 13.3 11.5 - 15.5 % 12/25/2024 10:14 PM [facility] PLATELET COUNT 220 140 - 440 thou/cu mm 12/25/2024 10:14 PM [facility] MPV 8.7 6.5 - 11.0 fL 12/25/2024 10:14 PM [facility] NRBC 0.0 % 12/25/2024 10:14 PM [facility] ABS NRBC 0.0 thou /cu mm 12/25/2024 10:14 PM [facility] % NEUT 78.7 % 12/25/2024 10:14 PM [facility] % LYMPH 15.6 % 12/25/2024 10:14 PM [facility] % MONO 4.8 % 12/25/2024 10:14 PM [facility] % EOS 0.1 % 12/25/2024 10:14 PM [facility] % BASO 0.4 % 12/25/2024 10:14 PM [facility] % IMMATURE GRAN (METAS,MYELOS,LA OS) 0.4 % 12/25/2024 10:14 PM [facility] ABSOLUTE NEUTROPHILS 9.5(H) 1.7 - 7.0 thou/cu mm 12/25/2024 10:14 PM [facility] ABSOLUTE LYMPHOCYTES 1.9 0.9 - 2.9 thou/cu mm 12/25/2024 10:14 PM DIGITAL MARKETER [facility] ABSOLUTE MONOCYTES 0.6 <0.9 thou/cu mm 12/25/2024 10:14 PM DIGITAL MARKETER [facility] ABSOLUTE EOSINOPHILS 0.0 <0.5 thou/cu mm 12/25/2024 10:14 PM DIGITAL MARKETER [facility] ABSOLUTE BASOPHILS 0.1 <0.3 thou/cu mm 12/25/2024 10:14 PM DIGITAL MARKETER [facility] ABSOLUTE IMMATURE GRANULOCYTES(MET ,MYELOS,PROS) 0.1 <0.3 thou/cu mm 12/25/2024 10:14 PM DIGITAL MARKETER [facility] Blood BLOOD SPECIMEN / Unknown Venipuncture / Unknown 12/25/2024 9:51 PM DIGITAL MARKETER 12/25/2024 9:59 PM DIGITAL MARKETER us Helena Smith DO HEMATOLOGY Final Result [facility] [address] [place] [address], * Protime - INR (12/25/2024 9:51 PM DIGITAL MARKETER) INR 1.0 <1.3 12/25/2024 10:27 PM [facility] PROTIME 10.9 10.6 - 12.4 sec 12/25/2024 10:27 PM DIGITAL MARKETER [facility] Blood BLOOD SPECIMEN / Unknown Venipuncture / Unknown 12/25/2024 9:51 PM DIGITAL MARKETER 12/25/2024 9:59 PM DIGITAL MARKETER Narrative [facility] - 12/25/2024 10:27 PM DIGITAL MARKETER Therapeutic Range 2.0-3.0 for most anticoagulated patients 2.5-3.5 or 4.0 for high risk patients The INR is only used for patients on stable oral anticoagulant therapy. It makes no significant contribution to the diagnosis or treatment of patients whose Protime is prolonged for other reasons. INR results are increased when heparin levels exceed 1.0 U/mL, which corresponds to an aPTT >125 seconds if the patient is on UFH. Helena Smith DO HEMATOLOGY Final Result Performing Organization Address [facility] de Phone Number [facility] [address] [place] [address], [place] * 12 Lead EKG (12/25/2024 9:45 PM DIGITAL MARKETER) Interpretation Normal sinus rhythm Normal ECG No previous ECGs available BEYOND NOW Ventricular Rate 68 BPM BEYOND NOW Atrial Rate 68 BPM BEYOND NOW P-R Interval 158 ms BEYOND NOW QRS Duration 70 ms BEYOND NOW QT 420 ms BEYOND NOW QTc 446 ms BEYOND NOW P [place] 80 degrees BEYOND NOW R [place] 58 degrees BEYOND NOW T [place] 61 degrees BEYOND NOW 12/25/2024 9:45 PM DIGITAL MARKETER 12/26/2024 8:39 AM DIGITAL MARKETER Helena Smith DO EKG ORD Final Result Performing Organization Address [facility] de Phone Number BEYOND NOW [place], [place] from Last 3 Months Insurance BLUE [place] [place] BLUE MR PB ONLY MEDICARE PART B HB ONLY MEDICARE PART A HB ONLY [facility] HC MEDICARE PPS Member Subscriber Plan / Payer (Ef fective 2010-Present) Name:Kylie Tabor Member ID:[id number] Relation to Subscriber:Self Name:Kylie Tabor Subscriber ID:[id number] Payer ID:Not on file Group ID:Not on file Type:Not on file Address: [facility] [id number] [phone] Advance Directives Documents on File Type Date Recorded 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 Expl anation Healthcare Directive 12/31/2024 5:22 PM Healthcare Directive 02/28/2000 12:00 AM * Full Code (Latest Code Status on File) Date Activated Date Inactivated Comments 12/25/2024 9:33 PM 01/20/2025 2:01 PM Question Answer Comments Code Status Discussion: Unable to Assess Preferences, Provider to review later * Full Code Date Activated Date Inactivated Comments 11/30/2007 12:12 PM 12/01/2007 12:17 PM Care Teams Dinkey Locomotive Engineer Relationship Specialty Start Date End Date Ed Walsh MD [address] [place] [address] PCP - General Family Practice 12/29/24 Autumn Raphael AuD Audiology 08/15/12 [facility] [address] [place] [address] 01/19/25
--- NOTE | 2025-02-03 18:10 | ED_ITS ---
HPI - General Adult General Chief complaint: Back Injury/Pain Stated complaint: Back pain Time Seen by Provider: 02/03/25 17:47 History of Present Illness HPI narrative: This 79-year-old female has significant dementia and is nonverbal also. Most of this has occurred after having a large hemorrhagic stroke about 6 weeks ago according to her 's report. She fell about a week ago and has a rib fracture on the left side. She was evaluated for this and hospitalized also with a a urinary tract infection. she has home care for 22/24 hours a day and now has some sundowning. She had some antihypertensives removed in her recent visits but still takes propranolol. Today she had brief loss of consciousness that seemed to be related to pain from her left ribs. The caregiver thought she should come in for evaluation. She does arrive here with systolic blood pressure at 96. She has a very poor historian and has difficulty communicating. Related Data Home Medications ?Medication ?Instructions ?Recorded ?Confirmed cetirizine 10 mg tablet (Zyrtec) 10 mg PO DAILY PRN 03/04/24 02/03/25 fluorouracil 5 % topical cream 1 applic topical BID 01/21/25 02/03/25 gabapentin 100 mg capsule 300 mg PO QHS 01/21/25 02/03/25 lidocaine 4 % topical patch 1 patch topical BID PRN 01/21/25 02/03/25 melatonin 3 mg tablet 3 mg PO QHS 01/21/25 02/03/25 mirtazapine 15 mg tablet 15 mg PO QHS 01/21/25 02/03/25 fafyursm-mzi-acjah ac 400 1 tab PO QDAY 01/21/25 02/03/25 mcg-calcium carb 500 mg-vit K1 20 mcg tablet (Women's 50 Plus Multivitamin) olanzapine 5 mg disintegrating 2.5 mg PO QHS 01/21/25 02/03/25 tablet omega 3-nlb-igp-fish oil 1,200 mg 1 cap PO QDAY 01/21/25 02/03/25 (144 mg-216 mg) capsule (Fish Oil) propranolol 20 mg tablet 20 mg PO BID 01/21/25 02/03/25 Previous Rx's ?Medication ?Instructions ?Recorded acetaminophen 650 mg 1,300 mg (2 x 650 mg) PO Q8H #20 01/31/25 tablet,extended release tabs Allergies Allergy/AdvReac Type Severity Reaction Status Date / Time pollen extracts Allergy Intermediate Verified 02/03/25 17:46 Review of Systems Status of ROS: Reports: unobtainable due to mental status Narrative: Unable to obtain due to mental status. [facility] Medical History (Updated 02/03/25 @ 20:18 by Cristofer Hewitt MD) Encephalopathy ?G93.40 - Encephalopathy, unspecified (ICD-10) Severe Alzheimer dementia with agitation ?G30.9 - Alzheimer's disease, unspecified (ICD-10) ?F02.C11 - Dementia in other diseases classified elsewhere, severe, with agitation (ICD-10) Fracture of rib ?S22.39XA - Fracture of one rib, unspecified side, initial encounter for closed fracture (ICD-10) Atopic dermatitis ?L20.9 - Atopic dermatitis, unspecified (ICD-10) Actinic keratoses ?L57.0 - Actinic keratosis (ICD-10) Recurrent cold sores ?B00.1 - Herpesviral vesicular dermatitis (ICD-10) Nontraumatic cortical hemorrhage of right cerebral hemisphere ?I61.1 - Nontraumatic intracerebral hemorrhage in hemisphere, cortical (ICD- 10) Generalized anxiety disorder ?F41.1 - Generalized anxiety disorder (ICD-10) Major depression, recurrent ?F33.9 - Major depressive disorder, recurrent, unspecified (ICD-10) Bilateral cataracts ?H26.9 - Unspecified cataract (ICD-10) 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) ?M47.816 - Spondylosis without myelopathy or radiculopathy, lumbar region (ICD-10) Incontinence of feces (11/21/23) ?R15.9 - Full incontinence of feces (ICD-10) 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/22/19) ?Z85.89 - Personal history of malignant neoplasm of other organs and systems (ICD-10) History of Lyme disease (11/22/19) ?Z86.19 - Personal history of other infectious and parasitic diseases (ICD- 10) History of COVID-19 (10/27/21) ?Z86.16 - Personal history of COVID-19 (ICD-10) Hearing aid worn (10/27/21) ?Z97.4 - Presence of external hearing-aid (ICD-10) Osteoporosis (11/22/19) ?M81.0 - Age-related osteoporosis without current pathological fracture (ICD- 10) Allergic rhinitis ?J30.9 - Allergic rhinitis, unspecified (ICD-10) Osteoarthritis of left hip ?M16.12 - Unilateral primary osteoarthritis, left hip (ICD-10) Sensorineural hearing loss (SNHL) of both ears ?H90.3 - Sensorineural hearing loss, bilateral (ICD-10) 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 ?L03.90 - Cellulitis, unspecified (ICD-10) ?A28.0 - Pasteurellosis (ICD-10) ?W55.01XA - Bitten by cat, initial encounter (ICD-10) Osteoporosis (2012) ?M81.0 - Age-related osteoporosis without current pathological fracture (ICD- 10) Insomnia ?G47.00 - Insomnia, unspecified (ICD-10) Surgical History (Updated 01/23/25 @ 21:58 by Ed Walsh MD) History of total left hip replacement (03/04/24) ?Z96.642 - Presence of left artificial hip joint (ICD-10) H/O excision of ganglion cyst (04/03/97) ?Z98.890 - Other specified postprocedural states (ICD-10) History of laminectomy ?Z98.890 - Other specified postprocedural states (ICD-10) 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) ?Z96.641 - Presence of right artificial hip joint (ICD-10) Status post dilation and curettage (1989) ?Z98.890 - Other specified postprocedural states (ICD-10) History of microdiscectomy (2007) ?Z98.890 - Other specified postprocedural states (ICD-10) History of hysterectomy (1989) ?Z90.710 - Acquired absence of both cervix and uterus (ICD-10) Family History Father Depression Social History Narrative: Exercises regularly- 3-4/ week, 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 In the past 12 months, utilities in danger of being shut off: unable to answer In past 12 months, lack of transportation kept you from medical appts, meetings, work, or getting things needed for daily living: unable to answer In the past 12 mos, have been you worried that your food would run out before you had money to buy more?: unable to answer In the past 12 mos, the food you bought just didn't last and you didn't have money to buy more?: unable to answer Smoking Status: Unknown if ever smoked Do you use any of these nicotine containing products: None Second hand tobacco smoke exposure: No How often do you have a drink containing alcohol: never AUDIT-C Alcohol total score: 0 Non-prescribed substance use: denies use How often does anyone, including family, friends and others, physically hurt you : unable to answer How often does anyone, including family, friends and others, insult or talk down to you: unable to answer How often does anyone, including family, friends and others, threaten you with harm: unable to answer How often does anyone, including family, friends and others, scream or curse at you: unable to answer Exam Narrative: Exam Narrative: Constitutional: Well-developed, well-nourished, no acute distress. HEENT: Normocephalic, atraumatic. Neck: Normal range of motion. Nontender. Supple. Heart: Regular. No murmurs. Normal rate. Intact distal pulses. Lungs: Clear to auscultation. No wheezes, rhonchi, or rales. chest: Pain when palpating over the left anterior lower ribs. Abdomen: Normal bowel sounds. Nontender. No rebound tenderness. Genitalia: Deferred. Back: No midline tenderness. Normal range of motion. Extremities: Normal range of motion. Skin: Intact. No rash. Warm. No erythema or pallor. Neurologic: No altered sensation. No weakness. Alert . Nursing notes and vitals signs are reviewed. Const: Vital Signs, click to edit/add: Vital Signs - 24 hr 02/03/25 17:35 02/03/25 19:40 02/03/25 20:27 Temperature 98.4 F 98.1 F Pulse Rate [Pulse Oximeter] 84 70 Respiratory Rate 12 18 18 Blood Pressure [Ri ght Upper Arm] 96/80 129/59 L 123/66 Pulse Oximetry 99 99 Oxygen Delivery Me thod Room Air 02/03/25 20:36 Temperature Pulse Rate [Pulse Oximeter] Respiratory Rate Blood Pressure [Ri ght Upper Arm] Pulse Oximetry 99 Oxygen Delivery Me thod Course Vital Signs Vital signs: Initial Vital Signs Temperature 98.4 F 02/03/25 17:35 Temperature Source Temporal Artery Scan 02/03/25 17:35 Pulse Rate 84 02/03/25 17:35 Respiratory Rate 12 02/03/25 17:35 Blood Pressure 96/80 02/03/25 17:35 Blood Pressure Mean 85 02/03/25 17:35 Pulse Oximetry 99 02/03/25 17:35 Vital Signs Temperature 98.4 F 02/03/25 17:35 Pulse Rate 84 02/03/25 17:35 Respiratory Rate 12 02/03/25 17:35 Blood Pressure 96/80 02/03/25 17:35 Pulse Oximetry 99 02/03/25 17:35 Temperature 98.1 F 02/03/25 20:27 Pulse Rate 70 02/03/25 20:27 Respiratory Rate 18 02/03/25 20:27 Blood Pressure 123/66 02/03/25 20:27 Pulse Oximetry 99 02/03/25 20:36 Oxygen Delivery Method Room Air 02/03/25 20:27 Medications Administered Medications: Discontinued Medications Generic Name Dose Route Start Last Admin Trade Name Freq PRN Reason Stop Dose Admin Hydrocodone Bitart/Acetaminophen 1 tab 02/03/25 20:12 02/03/25 20:21 Hydrocodone-Acetamin 5-325 Mg 1 Tab PO 02/03/25 20:13 1 tab ONCE ONE Administration Medical Decision Making MDM Narrative Medical decision making narrative: This 79-year-old female comes in with her because of a syncopal event that he did not witness but a caregiver did. The caregiver thought it had to do with pain related to her rib fracture from a fall that occurred about a week ago or so. The patient arrives here with a systolic pressure of 96 but subsequent pressures were all in the 120-130 range. I did obtain labs and these returned with normal results except for her potassium is elevated a bit at 5.5. The patient has ongoing care at home almost day round because of changes that occurred after hemorrhagic stroke that occurred a couple months ago. She is okay to be discharged home. I did provide prescription for [place] to treat her rib pain. The patient is taking propranolol and it could be that she no longer needs this medication as the time of her discharge is about the time when she would be due to take her medications again. I advised the patient's to hold propranolol for a few days and record blood pressures to better assess how much medication she really needs. Lab Data Labs: Lab Results 02/03/25 Range/Units 18:45 WBC 8.24 (4.50-11.00) K/uL RBC 3.82 L (4.00-5.20) m/uL Hgb 11.1 L (12.0-16.0) gm/dL Hct 35.4 (33.0-51.0) % MCV 93 (80-100) fL MCH 29 (26-34) pg MCHC 31 L (32-36) gm/dL RDW Coeff of [place]elin 14.9 (11.5-15.5) % Plt Count 343 (140-440) K/uL Neut % (Auto) 62.7 (42.0-72.0) % Lymph % (Auto) 26.7 (20-44) % [place] % (Auto) 6.4 (0.0-11.0) % Eos % (Auto) 2.3 (0.0-7.0) % Baso % (Auto) 1.2 (0.0-3.0) % Neut # (Auto) 5.16 (1.7-7.0) K/uL Lymph # (Auto) 2.20 (0.90-2.90) K/uL [place] # (Auto) 0.50 (0.00-0.90) K/UL Eos # (Auto) 0.19 (0.00-0.50) K/uL Baso # (Auto) 0.10 (0.00-0.30) K/uL Abs Immat Gran (auto) 0.06 (0.00-0.30) K/uL Imm/Tot Granulo (auto) 0.7 % Sodium 139 (135-149) mmol/L Potassium 5.5 H (3.6-5.1) mmol/L Chloride 100 (96-114) mmol/L Carbon Dioxide 28 (20-32) mmol/L Anion Gap 11 (7-15) mEq/L BUN 18 (7-30) mg/dL Creatinine 0.6 (0.5-1.5) mg/dL Estimated GFR 91 ml/min Glucose 99 (60-115) mg/dL Calcium 9.4 (8.4-10.6) mg/dL Discharge Plan Discharge Clinical Impression: Syncope, Thoracic back pain Patient Disposition: Home w/ Parent or Adult Condition: Stable Additional Instructions: take medication as needed and indicated. Okay to hold propranolol for a few days and record blood pressures for follow-up with the appointment with primary physician for ongoing management. Recheck potassium also at that time. Return if worsening. Prescriptions: No Action lidocaine 4 % adhesive patch,medicated 1 patch topical BID PRN mirtazapine 15 mg tablet 15 mg PO QHS olanzapine 5 mg tablet,disintegrating 2.5 mg PO QHS Rx Instructions: at bedtime if needed for sleep or agitation propranolol 20 mg tablet 20 mg PO BID gabapentin 100 mg capsule 300 mg PO QHS omega 1-deg-gwt-fish oil [Fish Oil] 1,200 (144-216) mg capsule 1 cap PO QDAY melatonin 3 mg tablet 3 mg PO QHS Women's 50 Plus Multivitamin 400 mcg-500 mg calcium-20 mcg tablet 1 tab PO QDAY fluorouracil 5 % cream 1 applic topical BID Rx Instructions: APPLY A SMALL AMOUNT TO AFFECTED AREA TWICE A DAY TO HANDS AND NOSE FOR UP TO 2 WEEKS cetirizine [Zyrtec] 10 mg tablet 10 mg PO DAILY PRN acetaminophen 650 mg Tablet Extended Release 1,300 mg PO Q8H Qty: 20 0RF Follow Up/Referrals: Ed Walsh MD [Primary Care Provider] - Stand Alone Forms: [employer] Info Instructions
--- OUTSIDE RECORDS SUMMARY | 2025-02-03 18:50 | XMS_ITS | Clinical Summary ---
Author Organization [facility] Address [address] [place] [address] Care Team Providers Care Casing Crew Name Role Phone Ed Walsh MD Primary Care Provider [phone] Encounters Date Type Department Care Team Description 11/24/2024 Telephone [facility] [address] [place] [phone] Piedad Lemon, ranch helper Request 11/24/2024 Telephone [facility] [address] [place] [phone] Piedad Lemon, RN Covid 19 Testing from Last 3 Months Social History Tobacco Use Types Packs/Day Years Used Date Smoking Tobacco: Never Assessed Comments Unknown Sex and Gender Information Value Date Recorded Sex Assigned at Not on file 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
[2025-02-03 18:51] LABS: Basophils Percent Auto 1.2 % (0.0-3.0); Eosinophils Absolute Auto 0.19 K/uL (0.00-0.50); Eosinophils Percent Auto 2.3 % (0.0-7.0); Hematocrit 35.4 % (33.0-51.0); Hemoglobin* 11.1 gm/dL (12.0-16.0); Immature Granulocytes Abs Auto 0.06 K/uL (0.00-0.30); Immature Granulocytes Pct Auto 0.7 %; Lymphocytes Percent Auto 26.7 % (20-44); Mean Corpuscular HGB Conc 31 gm/dL (32-36); Mean Corpuscular Hemoglobin 29 pg (26-34); Mean Corpuscular Volume 93 fL (80-100); Monocytes Percent Auto 6.4 % (0.0-11.0); Neutrophils Absolute Auto 5.16 K/uL (1.7-7.0); Neutrophils Percent Auto 62.7 % (42.0-72.0); Platelet Count* 343 K/uL (140-440); RDW Coefficient of Variation % 14.9 % (11.5-15.5); Red Blood Count 3.82 m/uL (4.00-5.20); White Blood Count* 8.24 K/uL (4.50-11.00)
--- OUTSIDE RECORDS SUMMARY | 2025-02-03 18:51 | XMS_ITS | Clinical Summary ---
Author Organization [employer] [facility] Address [address] [place] [address] Care Team Providers Care Data Architect Name Role Phone Autumn Raphael Unavailable [phone] Ed Walsh MD Primary Care Provider + [facility] Unavailable [phone] Allergies No known active allergies Medications fluorouracil [...] capsule is 1200 mg-360 mg Active glucosam-chondroi w-U-kgybqkqik 500-400-2-0.33 mg cap Take 1 Capsule by [...] bed. Length of need 6 months. 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 30 Capsule 01/17/20 25 5:12 PM TIMBER SIZER 025 Active acetaminophen (TYLENOL) 325 mg tabletIndications :Back pain, unspecified back location, unspecified back pain laterality, unspecified chronicity [The details of the medication are not available because there are pending changes by a home health clinician.] 100 Tablet 01/17/20 25 5:12 PM TIMBER SIZER 025 Active Additional Information Patient taking differently: [...] Agitation. 30 Tablet 01/17/20 25 5:12 PM TIMBER SIZER 025 Active propranoloL (INDERAL) 20 mg tabletIndications :Encephalopathy acute,Hypertensio n Take 1 Tablet (20 mg) by mouth two times daily. 60 Tablet 01/17/20 25 5:12 PM TIMBER SIZER 025 Active amLODIPine (NORVASC) 2.5 mg tabletIndications :Intracranial hemorrhage (HC),Hypertension [The details of the medication are not available because there are pending changes by a home health clinician.] 60 Tablet 01/20/20 25 1:05 PM TIMBER SIZER 025 2024 Active Additional Information Patient not taking.Reason: See Comment (discontinued per hospital med list), Informant: Patient's Med List, Reported on 02/03/2025 mirtazapine (REMERON) 15 mg tabletIndications :Encephalopathy acute,Intracrania l hemorrhage (HC) Take 1 Tablet (15 mg) by mouth at bedtime. 30 Tablet 01/20/20 25 1:05 PM TIMBER SIZER 025 2024 Active sodium chloride 1,000 mg soluble tabletIndications :Hyponatremia Take 1 Tablet (1,000 mg) by mouth two times daily. 60 Tablet 01/20/20 25 1:05 PM TIMBER SIZER 025 2024 Active gabapentin (NEURONTIN) 300 mg [...] MRI IF NEEDED. YOU WILL NEED A CUE SELECTOR. 025 2024 Discontinued(* IP Discontinued) ibuprofen (ADVIL; [...] bedtime. 30 Tablet 01/17/20 25 5:12 PM TIMBER SIZER 025 2024 Discontinued(* IP Discontinued) sodium chloride 1,000 mg soluble tabletIndications :Hyponatremia Take 1 Tablet (1,000 mg) by mouth three times daily. 90 Tablet 01/17/20 25 5:12 PM TIMBER SIZER 025 2024 Discontinued Active Problems Problem Noted [...] 02/03/2025 11:00 AM CDT Home Care Visit [facility] [address] [facility] [place] [phone] Lisha Bautista, RN SN - OASIS RESUMPTION OF CARE 01/31/2025 Home Care Visit [facility] [address] [place] [phone] Lisha Bautista, RN CARE COORDINATION 01/28/2025 Home Care Visit [facility] [address] [place] [phone] Lisha Bautista, DANIEL SN - OASIS TRANSFER 01/28/2025 Home Care Visit [facility] [address] [place] [phone] Oxana Esqueda, DANIEL CARE COORDINATION 01/27/2025 Home Care Visit [facility] [address] [place] [phone] Lisha Bautista, [employer] WORKER NOTE 01/24/2025 1:30 PM TIMBER SIZER Home Care Visit [facility] [address] [place] [address], [place] [address] David Fishman, PT PT - INITIAL ASSESSMENT 01/23/2025 11:15 AM TIMBER SIZER Home Care Visit [facility] [address] [place] [phone] Sury Silva, OT OT - INITIAL ASSESSMENT 01/23/2025 Home Care Visit [facility] [address] [place] [phone] Oxana Esqueda, DANIEL CARE COORDINATION 01/23/2025 Nurse Triage [facility] [address] [place] [address] Ed Walsh MD [facility] 01/21/2025 7:00 AM TIMBER SIZER Home Care Visit [facility] [address] [place] [phone] Shereen Alvarez, DANIEL SN - OASIS START OF CARE 01/21/2025 Telephone [facility] [address] [place] [address] Shereen Alvarez, leave specialist (Need ongoing orders for HH) 01/21/2025 Plan of Care Documentation [facility] [address] [place] [phone] 01/19/2025 Travel 12/25/2024 9:26 PM TIMBER SIZER - 01/20/2025 12:00 PM TIMBER SIZER Hospital Encounter [facility] [address] [place] [address] Helena Smith DO Malik, MD Mariah Bains, MD Scott Landeros, MD Yoav Salamanca, MD Abdelrahman Pérez, Ed Hilliard MD [facility] Encephalopathy acute (Primary Dx); [...] on file Legal Sex Female 6:04 AM TIMBER SIZER Gender Identity Not on file Sexual Orientation Not on file Obstetrics History Last Filed Vital Signs Vital Sign Reading Time Taken Comments Blood Pressure 110/60 02/03/2025 11:21 AM CDT Pulse 81 02/03/2025 11:21 AM CDT Temperature 36.6 C (97.9 F) 02/03/2025 11:21 AM CDT Respiratory Rate 18 02/03/2025 11:21 AM CDT Oxygen Saturation 94% 01/24/2025 1:41 PM TIMBER SIZER Inhaled Oxygen Concentration - - Weight 46.3 kg (102 lb) 02/03/2025 11:21 AM CDT Height 157.5 cm (5' 2) 01/21/2025 2:13 PM TIMBER SIZER Body Mass Index 18.66 01/21/2025 2:13 PM TIMBER SIZER Plan of Treatment Upcoming Encounters Date Type Department Care Team (Late st Contact Info) Description 02/04/2025 4:30 AM CDT Home Care Visit [address] [phone] Sury Silva, OT [address] [place] [address] 02/04/2025 5:00 AM CDT Home Care Visit [place] [id number] [place] [phone] Toya Ley [address], [place] [address] 02/13/2025 4:00 AM CDT Home Care Visit [address] [phone] Lisha Bautista RN 02/20/2025 4:00 AM CDT Home Care Visit [address] [place] [address] Lisha Bautista, DANIEL 02/27/2025 4:00 AM CDT Home Care Visit [facility] [address] [facility] [place] [address] Lisha Bautista, DANIEL 03/06/2025 4:00 AM CDT Home Care Visit [facility] [address] [place] [address], [place] [address] Lisha Bautista, DANIEL 03/13/2025 4:00 AM CDT Home Care Visit [facility] [address] [place] [address], [place] [address] Lisha Bautista RN 03/20/2025 4:00 AM CDT Appointment [facility] [address] [place] [address], [place] [phone] Lisha Bautista, RN Health Maintenance Due Date [...] Comments SODIUM Early AM 01/19/2025 6:37 AM TIMBER SIZER HEMOGLOBIN Early AM 01/19/2025 6:37 AM TIMBER SIZER XR CHEST 1 VIEW PORTABLE Routine 01/16/2025 11:15 AM TIMBER SIZER SODIUM Early AM 01/16/2025 10:52 AM TIMBER SIZER ALT (SGPT) Early AM 01/13/2025 10:58 AM TIMBER SIZER AST (SGOT) Early AM 01/13/2025 10:58 AM TIMBER SIZER ALK PHOSPHATASE Early AM 01/13/2025 10:58 AM TIMBER SIZER AMMONIA Early AM 01/13/2025 10:58 AM TIMBER SIZER CREATININE Early AM 01/13/2025 10:58 AM TIMBER SIZER POTASSIUM Early AM 01/13/2025 10:58 AM TIMBER SIZER SODIUM Early AM 01/13/2025 10:58 AM TIMBER SIZER CBC W PLT NO DIFF Early AM 01/13/2025 10: 58 AM TIMBER SIZER SODIUM Early AM 01/11/2025 6:45 AM TIMBER SIZER HEPATIC FUNCTION PANEL EDILIA 6:46 AM TIMBER SIZER SODIUM Early AM 01/10/2025 6:46 AM TIMBER SIZER PHOSPHORUS Early AM 01/10/2025 6:46 AM TIMBER SIZER MAGNESIUM Early AM 01/10/2025 6:46 AM TIMBER SIZER POTASSIUM Early AM 01/10/2025 6:46 AM TIMBER SIZER SODIUM Today 01/09/2025 4:12 PM TIMBER SIZER PHOSPHORUS EDILIA 01/09/2025 6:17 AM TIMBER SIZER POTASSIUM EDILIA 01/09/2025 6:17 AM TIMBER SIZER MAGNESIUM EDILIA 01/09/2025 6:17 AM TIMBER SIZER CBC W PLT NO DIFF Early AM 01/09/2025 6:1 7 AM TIMBER SIZER BASIC METABOLIC PANEL Early AM 01/09/2025 6:17 AM TIMBER SIZER SODIUM EDILIA 01/08/2025 1:24 PM TIMBER SIZER POTASSIUM Timed 01/08/2025 1:24 PM TIMBER SIZER POTASSIUM Today 01/08/2025 8:38 AM TIMBER SIZER SODIUM Timed 01/08/2025 8:38 AM TIMBER SIZER CBC W PLT NO DIFF Early AM 01/08/2025 6:2 4 AM TIMBER SIZER BASIC METABOLIC PANEL Early AM 01/08/2025 6:24 AM TIMBER SIZER SODIUM Timed 01/08/2025 2:44 AM TIMBER SIZER SODIUM Timed 01/07/2025 9:37 PM TIMBER SIZER SODIUM Timed 01/07/2025 2:23 PM TIMBER SIZER SODIUM Timed 01/07/2025 8:31 AM TIMBER SIZER LD,TOTAL Early AM 01/07/2025 6:31 AM TIMBER SIZER HEMOGLOBIN Early AM 01/07/2025 6:31 AM TIMBER SIZER SODIUM Timed 01/07/2025 3:35 AM TIMBER SIZER SODIUM Timed 01/06/2025 9:24 PM TIMBER SIZER HAPTOGLOBIN EDILIA 01/06/2025 4:02 PM TIMBER SIZER SODIUM Timed 01/06/2025 4:02 PM TIMBER SIZER SODIUM Timed 01/06/2025 9:50 AM TIMBER SIZER RETICULOCYTES EDILIA 01/06/2025 4:16 AM TIMBER SIZER WHITE BLOOD COUNT Early AM 01/06/2025 4:1 6 AM TIMBER SIZER PLATELET COUNT Early AM 01/06/2025 4:16 AM TIMBER SIZER HEMOGLOBIN Early AM 01/06/2025 4:16 AM TIMBER SIZER SODIUM Timed 01/06/2025 4:16 AM TIMBER SIZER SODIUM Timed 01/05/2025 9:08 PM TIMBER SIZER SODIUM Timed 01/05/2025 3:18 PM TIMBER SIZER US VENOUS LOWER EXTREMITY BILATERAL Routine 01/05/2025 10:07 AM TIMBER SIZER CREATININE EDILIA 01/05/2025 9:30 AM TIMBER SIZER ELECTROLYTE PANEL EDILIA 01/05/2025 9:3 0 AM TIMBER SIZER PROCALCITONIN Today 01/05/2025 9:30 AM TIMBER SIZER WHITE BLOOD COUNT Today 01/05/2025 9:3 0 AM TIMBER SIZER SODIUM Timed 01/05/2025 9:30 AM TIMBER SIZER XR CHEST 1 VIEW PORTABLE Routine 01/05/2025 9:25 AM TIMBER SIZER GLUCOSE METER Timed 01/05/2025 7:55 AM TIMBER SIZER SODIUM Timed 01/05/2025 3:04 AM TIMBER SIZER GLUCOSE METER Timed 01/05/2025 1:50 AM TIMBER SIZER SODIUM Timed 01/04/2025 9:11 PM TIMBER SIZER GLUCOSE METER Timed 01/04/2025 6:16 PM TIMBER SIZER GLUCOSE METER Timed 01/04/2025 3:22 PM TIMBER SIZER SODIUM Timed 01/04/2025 3:05 PM TIMBER SIZER OSMOLALITY,URINE Today 01/04/2025 11:0 2 AM TIMBER SIZER OSMOLALITY EDILIA 01/04/2025 11:02 AM TIMBER SIZER HEPATIC FUNCTION PANEL EDILIA 11:02 AM TIMBER SIZER SODIUM,RANDOM URINE Today 01/04/2025 1 1:02 AM TIMBER SIZER SODIUM Timed 01/04/2025 11:02 AM TIMBER SIZER SODIUM Timed 01/04/2025 5:09 AM TIMBER SIZER GLUCOSE METER Timed 01/04/2025 4:53 AM TIMBER SIZER SODIUM Timed 01/03/2025 11:21 PM TIMBER SIZER SODIUM Timed 01/03/2025 6:27 PM TIMBER SIZER GLUCOSE METER Timed 01/03/2025 5:[address] HEAD BRAIN WO EDILIA 01/03/2025 4:02 PM TIMBER SIZER SODIUM Timed 01/03/2025 12:54 PM TIMBER SIZER GLUCOSE METER Timed 01/03/2025 12:32 PM TIMBER SIZER ALK PHOSPHATASE Early AM 01/03/2025 5:49 AM TIMBER SIZER AST (SGOT) Early AM 01/03/2025 5:49 AM TIMBER SIZER ALT (SGPT) Early AM 01/03/2025 5:49 AM TIMBER SIZER HEMOGLOBIN Early AM 01/03/2025 5:49 AM TIMBER SIZER SODIUM Timed 01/03/2025 5:49 AM TIMBER SIZER GLUCOSE METER Timed 01/03/2025 4:53 AM TIMBER SIZER SODIUM Timed 01/02/2025 11:18 PM TIMBER SIZER GLUCOSE METER Timed 01/02/2025 10:32 PM TIMBER SIZER SODIUM Timed 01/02/2025 5:54 PM TIMBER SIZER SODIUM Timed 01/02/2025 11:27 AM TIMBER SIZER PLATELET COUNT Early AM 01/02/2025 7:44 AM TIMBER SIZER WHITE BLOOD COUNT Early AM 01/02/2025 7:4 4 AM TIMBER SIZER HEMOGLOBIN Early AM 01/02/2025 7:44 AM TIMBER SIZER BASIC METABOLIC PANEL Early AM 01/02/2025 6:35 AM TIMBER SIZER SODIUM Timed 01/02/2025 6:35 AM TIMBER SIZER GLUCOSE METER Timed 01/02/2025 3:59 AM TIMBER SIZER SODIUM Timed 01/02/2025 1:00 AM TIMBER SIZER GLUCOSE METER Timed 01/01/2025 9:27 PM TIMBER SIZER GLUCOSE METER Timed 01/01/2025 6:34 PM TIMBER SIZER INSERT PICC LINE Routine 01/01/2025 5:41 PM TIMBER SIZER SODIUM Timed 01/01/2025 4:37 PM TIMBER SIZER CORTISOL TOTAL Timed 01/01/2025 4:37 PM TIMBER SIZER GLUCOSE METER Timed 01/01/2025 12:[address] HEAD BRAIN WO STAT 01/01/2025 11:5 2 AM TIMBER SIZER TSH EDILIA 01/01/2025 11:17 AM TIMBER SIZER SODIUM Timed 01/01/2025 11:17 AM TIMBER SIZER OSMOLALITY,URINE Today 01/01/2025 9:39 AM TIMBER SIZER SODIUM,RANDOM URINE Today 01/01/2025 9 :39 AM TIMBER SIZER BASIC METABOLIC PANEL Early AM 01/01/2025 7:13 AM TIMBER SIZER WHITE BLOOD COUNT Early AM 01/01/2025 7:1 3 AM TIMBER SIZER GLUCOSE METER Timed 01/01/2025 6:06 AM TIMBER SIZER GLUCOSE METER Timed 12/31/2024 10:[address] CHEST ABDOMEN PELVIS W Routine 12/31/2024 4:48 PM TIMBER SIZER GLUCOSE METER Timed 12/31/2024 2:17 PM TIMBER SIZER BLOOD CULTURE Today 12/31/2024 12:29 PM TIMBER SIZER BLOOD CULTURE Today 12/31/2024 12:29 PM TIMBER SIZER GLUCOSE METER Timed 12/31/2024 9:47 AM TIMBER SIZER PHOSPHORUS Early AM 12/31/2024 6:32 AM TIMBER SIZER POTASSIUM Early AM 12/31/2024 6:32 AM TIMBER SIZER WHITE BLOOD COUNT Early AM 12/31/2024 6:3 2 AM TIMBER SIZER GLUCOSE METER Timed 12/31/2024 4:24 AM TIMBER SIZER GLUCOSE METER Timed 12/30/2024 9:13 PM TIMBER SIZER GLUCOSE METER Timed 12/30/2024 5:08 PM TIMBER SIZER COVID/FLU/RSV PANEL Today 12/30/2024 1 0:17 AM TIMBER SIZER BASIC METABOLIC PANEL Early AM 12/30/2024 8:51 AM TIMBER SIZER CBC W PLT NO DIFF Early AM 12/30/2024 8:5 1 AM TIMBER SIZER PHOSPHORUS Early AM 12/30/2024 8:51 AM TIMBER SIZER MAGNESIUM Early AM 12/30/2024 8:51 AM TIMBER SIZER GLUCOSE METER Timed 12/30/2024 4:04 AM TIMBER SIZER GLUCOSE METER Timed 12/29/2024 9:15 PM TIMBER SIZER GLUCOSE METER Timed 12/29/2024 3:24 PM TIMBER SIZER URINALYSIS MICROSCOPIC Timed 2:21 PM TIMBER SIZER UA W/ SEDIMENT EXAM REFLEXED PER CRITERIA Today 12/29/2024 2:21 PM TIMBER SIZER XR CHEST 1 VIEW PORTABLE Routine 12/29/2024 2:14 PM TIMBER SIZER PHOSPHORUS Today 12/29/2024 11:28 AM TIMBER SIZER GLUCOSE METER Timed 12/29/2024 9:30 AM TIMBER SIZER POTASSIUM Early AM 12/29/2024 6:43 AM TIMBER SIZER MAGNESIUM Early AM 12/29/2024 6:[address] HEAD BRAIN WO Routine 12/29/2024 4:23 AM TIMBER SIZER GLUCOSE METER Timed 12/29/2024 2:55 AM TIMBER SIZER XR ABDOMEN 1 VIEW PORTABLE STAT 12/28/2024 6:33 PM TIMBER SIZER GLUCOSE METER Timed 12/28/2024 10:47 AM TIMBER SIZER PHOSPHORUS Timed 12/28/2024 9:40 AM TIMBER SIZER SCAN-CARDIAC STRIP 12/28/2024 7: 30 AM TIMBER SIZER GLUCOSE METER Timed 12/28/2024 5:13 AM TIMBER SIZER CBC W PLT NO DIFF Early AM 12/28/2024 4:2 0 AM TIMBER SIZER BASIC METABOLIC PANEL Early AM 12/28/2024 4:20 AM TIMBER SIZER PHOSPHORUS Early AM 12/28/2024 4:20 AM TIMBER SIZER MAGNESIUM Early AM 12/28/2024 4:20 AM TIMBER SIZER SCAN-RADIOLOGY REPORT 12/28/2024 12:00 AM TIMBER SIZER GLUCOSE METER Timed 12/27/2024 9:12 PM TIMBER SIZER GLUCOSE METER Timed 12/27/2024 2:31 PM TIMBER SIZER SODIUM Timed 12/27/2024 1:51 PM TIMBER SIZER GLUCOSE METER Timed 12/27/2024 9:06 AM TIMBER SIZER CBC W PLT NO DIFF Early AM 12/27/2024 4:5 9 AM TIMBER SIZER BASIC METABOLIC PANEL Early AM 12/27/2024 4:59 AM TIMBER SIZER PHOSPHORUS Early AM 12/27/2024 4:59 AM TIMBER SIZER MAGNESIUM Early AM 12/27/2024 4:59 AM TIMBER SIZER GLUCOSE METER Timed 12/27/2024 4:21 AM TIMBER SIZER GLUCOSE METER Timed 12/26/2024 10:07 PM TIMBER SIZER MR HEAD BRAIN WO Routine 12/26/2024 4:45 PM TIMBER SIZER GLUCOSE METER Timed 12/26/2024 2:52 PM TIMBER SIZER SCAN CORRESP-IMAGING 12/26/2024 10:44 AM TIMBER SIZER GLUCOSE METER Timed 12/26/2024 8:27 AM TIMBER SIZER UA W/ SEDIMENT EXAM REFLEXED PER CRITERIA Today 12/26/2024 6:[address] HEAD BRAIN WO Routine 12/26/2024 6:12 AM TIMBER SIZER WHITE BLOOD COUNT Early AM 12/26/2024 4:5 1 AM TIMBER SIZER PLATELET COUNT Early AM 12/26/2024 4:51 AM TIMBER SIZER HEMOGLOBIN Early AM 12/26/2024 4:51 AM TIMBER SIZER BASIC METABOLIC PANEL Early AM 12/26/2024 4:51 AM TIMBER SIZER PHOSPHORUS Early AM 12/26/2024 4:51 AM TIMBER SIZER MAGNESIUM Early AM 12/26/2024 4:[address] HEAD BRAIN WO Timed 12/26/2024 12:5 1 AM TIMBER SIZER SCAN-CARDIAC STRIP 12/25/2024 10 :48 PM TIMBER SIZER SCAN-CARDIAC STRIP 12/25/2024 10 :00 PM TIMBER SIZER CBC WITH AUTO DIFFERENTIAL STAT 12/25/2024 9:51 PM TIMBER SIZER PROTIME-INR STAT 12/25/2024 9:51 PM TIMBER SIZER HEPATIC FUNCTION PANEL STAT 9:51 PM TIMBER SIZER PHOSPHORUS STAT 12/25/2024 9:51 PM TIMBER SIZER MAGNESIUM STAT 12/25/2024 9:51 PM TIMBER SIZER CBC WITH AUTO DIFFERENTIAL STAT 12/25/2024 9:51 PM TIMBER SIZER BASIC METABOLIC PANEL STAT 12/25/2024 9:51 PM TIMBER SIZER EKG 12 LEAD STAT 12/25/2024 9:45 PM TIMBER SIZER GLUCOSE METER Timed 12/25/2024 9:23 PM TIMBER SIZER from Last 3 Months Results * (ABNORMAL) HEMOGLOBIN (01/19/2025 6:37 AM TIMBER SIZER) Only the most recent of6 resultswithin the time period is included. HEMOGLOBIN 9.5(L) 12.0 - 16.0 g/dL 01/19/2025 7:41 AM TIMBER SIZER [facility] MCV 91 80 - 100 fL 01/19/2025 7:41 AM TIMBER SIZER [facility] Blood BLOOD SPECIMEN / Unknown Venipuncture / Unknown 01/19/2025 6:37 AM TIMBER SIZER 01/19/2025 7:27 AM TIMBER SIZER us Ed Quick MD HEMATOLOGY Final Result [facility] [address] [place] [address], * SODIUM (01/19/2025 6:37 AM TIMBER SIZER) Only the most recent of37 resultswithin the time period is included. SODIUM 144 136 - 145 mmol/L 01/19/2025 7:45 AM TIMBER SIZER [facility] Blood BLOOD SPECIMEN / Unknown Venipuncture / Unknown 01/19/2025 6:37 AM TIMBER SIZER 01/19/2025 7:28 AM TIMBER SIZER us Ed Quick MD CHEMISTRY Final Result [facility] [address] [place] [address], [place] * XR Chest 1 view portable (01/16/2025 11:15 AM TIMBER SIZER) Only the most recent of3 resultswithin the time period is included. Anatomical Region Laterality Modality HEART, THORAX, CHEST Digital Rad iography 01/16/2025 11:3 5 AM TIMBER SIZER Impressions 01/16/2025 11:35 AM TIMBER SIZER Negative chest Dictated by José Funk MD @ Jan 16 2025 11:35AM (Electronically Signed) [email or web address] Narrative 01/16/2025 11:35 AM TIMBER SIZER For Patients: As a result of the [...] @ Jan 16 2025 11:35AM (Electronically Signed) [email or web address] us Samina Cason MD GENERAL IMAGING Final Resul t * (ABNORMAL) CBC no diff AM (01/13/2025 10:58 AM [facility]) Only the most recent of6 resultswithin the time period is included. WHITE BLOOD COUNT 6.3 4.5 - 11.0 thou/cu mm 01/13/2025 11:12 AM [facility] RED BLOOD COUNT 3.10(L) 4.00 - 5.20 mil/cu mm 01/13/2025 11:12 AM [facility] HEMOGLOBIN 9.1(L) 12.0 - 16.0 g/dL 01/13/2025 11:12 AM [facility] HEMATOCRIT 27.9(L) 33.0 - 51.0 % 01/13/2025 11:12 AM [facility] MCV 90 80 - 100 fL 01/13/2025 11:12 AM [facility] MCH 29.4 26.0 - 34.0 pg 01/13/2025 11:12 AM [facility] MCHC 32.6 32.0 - 36.0 g/dL 01/13/2025 11:12 AM [facility] RDW 13.4 11.5 - 15.5 % 01/13/2025 11:12 AM [facility] PLATELET COUNT 408 140 - 440 thou/cu mm 01/13/2025 11:12 AM [facility] MPV 7.7 6.5 - 11.0 fL 01/13/2025 11:12 AM [facility] NRBC 0.0 % 01/13/2025 11:12 AM [facility] ABS NRBC 0.0 thou /cu mm 01/13/2025 11:12 AM [facility] Blood BLOOD SPECIMEN / Unknown Venipuncture / Unknown 01/13/2025 10:58 AM TIMBER SIZER 01/13/2025 11:06 AM [facility] Ed Chavez MD HEMATOLOGY Final R esult Performing Organization Address City/[facility] Co de Phone Number [facility] [address] [place] [id number], [place] * POTASSIUM (01/13/2025 10:58 AM TIMBER SIZER) Only the most recent of7 resultswithin the time period is included. POTASSIUM 3.9 3.5 - 5.1 mmol/L 01/13/2025 11:37 AM TIMBER SIZER [facility] Blood BLOOD SPECIMEN / Unknown Venipuncture / Unknown 01/13/2025 10:58 AM TIMBER SIZER 01/13/2025 11:06 AM TIMBER SIZER Ed Chavez MD CHEMISTRY Final R [facility] Performing Organization Address [facility] de Phone Number [facility] [address] [place] [id number], [place] * CREATININE (01/13/2025 10:58 AM TIMBER SIZER) Only the most recent of2 resultswithin the time period is included. eGFR >90 >90 mL/min/1.7 3m2 01/13/2025 11:37 AM TIMBER SIZER [facility] Comment:As of 2022, eG FR is calculated by the CKD-EPI creatinine equation without race adjustment. eGFR can be influenced by muscle mass, exercise, and diet. The reported eGFR is an estimation only and is only applicable if the renal function is stable. CREATININE 0.59 0.50 - 0.90 mg/dL 01/13/2025 11:37 AM TIMBER SIZER [facility] Blood BLOOD SPECIMEN / Unknown Venipuncture / Unknown 01/13/2025 10:58 AM TIMBER SIZER 01/13/2025 11:06 AM TIMBER SIZER Ed Chavez MD CHEMISTRY Final R [facility] Performing Organization Address [facility] Co de Phone Number [facility] [address] [place] [id number], [place] * (ABNORMAL) ALT AM (01/13/2025 10:58 AM TIMBER SIZER) Only the most recent of2 resultswithin the time period is included. ALT (SGPT) 45(H) 10 - 35 IU/L 01/13/2025 11:37 AM TIMBER SIZER [facility] Blood BLOOD SPECIMEN / Unknown Venipuncture / Unknown 01/13/2025 10:58 AM TIMBER SIZER 01/13/2025 11:06 AM TIMBER SIZER Ed Chavez MD CHEMISTRY Final R esult Performing Organization Address City/[facility]/ZIP Co de Phone Number [facility] [address] [place] [address], [place] * AST AM (01/13/2025 10:58 AM TIMBER SIZER) Only the most recent of2 resultswithin the time period is included. AST (SGOT) 27 10 - 35 IU/L 01/13/2025 11:37 AM TIMBER SIZER [facility] Blood BLOOD SPECIMEN / Unknown Venipuncture / Unknown 01/13/2025 10:58 AM TIMBER SIZER 01/13/2025 11:06 AM TIMBER SIZER Ed Chavez MD CHEMISTRY Final [facility] Performing Organization Address City/[facility] Co de Phone Number [facility] [address] [place] [address], [place] * (ABNORMAL) Alk phosphatase AM (01/13/2025 10:58 AM TIMBER SIZER) Only the most recent of2 resultswithin the time period is included. ALK PHOSPHATASE 110(H) 35 - 104 IU/L 01/13/2025 11:37 AM [facility]BER SIZER [facility] Blood BLOOD SPECIMEN / Unknown Venipuncture / Unknown 01/13/2025 10:58 AM TIMBER SIZER 01/13/2025 11:06 AM TIMBER SIZER Ed Chavez MD CHEMISTRY Final R esult Performing Organization Address City/[facility]/ZIP Co de Phone Number [facility] [address] [address], [place] * Ammonia AM (01/13/2025 10:58 AM TIMBER SIZER) AMMONIA 18 16 - 60 umol/L 01/13/2025 11:29 AM TIMBER SIZER [facility] Blood BLOOD SPECIMEN / Unknown Venipuncture / Unknown 01/13/2025 10:58 AM TIMBER SIZER 01/13/2025 11:06 AM TIMBER SIZER Narrative [facility] - 01/13/2025 11:29 AM TIMBER SIZER 1. Sulfasalazine and its metabolite Sulfapyridine at therapeutic concentrations may lead to falsely low results. 2. Temozolomide and its metabolite MTIC may lead to falsely elevated results, and its metabolite AIC may lead to falsely low results. Ed Chavez MD CHEMISTRY Final R esult Performing Organization Address City/[facility]/ZIP Co de Phone Number [facility] [address] [id number], [place] * PHOSPHORUS (01/10/2025 6:46 AM TIMBER SIZER) Only the most recent of10 resultswithin the time period is included. PHOSPHORUS 3.6 2.5 - 4.5 mg/dL 01/10/2025 7:35 AM TIMBER SIZER [facility] Blood BLOOD SPECIMEN / Unknown Butterfly / Unknown 01/10/2025 6:46 AM TIMBER SIZER 01/10/2025 7:01 AM TIMBER SIZER Pina Mendez RN CHEMISTRY Final Result Performing Organization Address City/[facility]/ZIP Co de Phone Number [facility] [address] [address], [place] * MAGNESIUM (01/10/2025 6:46 AM TIMBER SIZER) Only the most recent of8 resultswithin the time period is included. MAGNESIUM 2.1 1.6 - 2.4 mg/dL 01/10/2025 7:35 AM TIMBER SIZER [facility] Blood BLOOD SPECIMEN / Unknown Butterfly / Unknown 01/10/2025 6:46 AM TIMBER SIZER 01/10/2025 7:01 AM TIMBER SIZER Pina Mendez RN CHEMISTRY Final Result Performing Organization Address City/[facility]/ZIP Co de Phone Number [facility] [address] [address], [place] * (ABNORMAL) HEPATIC FUNCTION PANEL (01/10/2025 6:46 AM TIMBER SIZER) Only the most recent of3 resultswithin the time period is included. ALBUMIN 3.7(L) 4.0 - 4.9 g/dL 01/10/2025 12:18 PM TIMBER SIZER [facility] PROTEIN,TOTAL 7.0 6.0 - 8.0 g/dL 01/10/2025 12:18 PM TIMBER SIZER [facility] BILIRUBIN,TOTAL 0.5 0.0 - 1.2 mg/dL 01/10/2025 12:18 PM TIMBER SIZER [facility] BILIRUBIN,DIRECT 0.2 0.0 - 0.2 mg/dL 01/10/2025 12:18 PM TIMBER SIZER [facility] BILIRUBIN,INDIRE CT 0.3 0.2 - 0.8 mg/dL 01/10/2025 12:18 PM TIMBER SIZER [facility] ALK PHOSPHATASE 129(H) 35 - 104 IU/L 01/10/2025 12:18 PM TIMBER SIZER [facility] ALT (SGPT) 59(H) 10 - 35 IU/L 01/10/2025 12:18 PM TIMBER SIZER [facility] AST (SGOT) 34 10 - 35 IU/L 01/10/2025 12:18 PM TIMBER SIZER [facility] Blood BLOOD SPECIMEN / Unknown Butterfly / Unknown 01/10/2025 6:46 AM TIMBER SIZER 01/10/2025 7:01 AM TIMBER SIZER us Hernan Singh DO CHEMISTRY Final Result [facility] [address] [place] [address] * (ABNORMAL) Basic metabolic panel AM (01/09/2025 6:17 AM [facility]) Only the most recent of9 resultswithin the time period is included. SODIUM 136 136 - 145 mmol/L 01/09/2025 6:57 AM [facility] POTASSIUM 3.7 3.5 - 5.1 mmol/L 01/09/2025 6:57 AM [facility] CHLORIDE 100 98 - 107 mmol/L 01/09/2025 6:57 AM [facility] CO2,TOTAL 24 22 - 29 mmol/L 01/09/2025 6:57 AM [facility] ANION GAP 12 5 - 18 01/09/2025 6:57 AM [facility] GLUCOSE 111(H) 70 - 99 mg/dL 01/09/2025 6:57 AM [facility] CALCIUM 9.0 8.8 - 10.4 mg/dL 01/09/2025 6:57 AM [facility] Comment: Reference ranges for this test were updated on 09/24/2024 to reflect our healthy population more accurately. Reference range changes are not retroactively applied to results, but previous results using the same methodology can be interpreted in the context of the new reference range. BUN 9 8 - 23 mg/dL 01/09/2025 6:57 AM [facility] CREATININE 0.38(L) 0.50 - 0.90 mg/dL 01/09/2025 6:57 AM [facility] BUN/CREAT RATIO 24(H) 10 - 20 6:57 AM [facility] eGFR >90 >90 mL/min/1. 73m2 01/09/2025 6:57 AM [facility] Comment:As of 2022, eG FR is calculated by the CKD-EPI creatinine equation without race adjustment. eGFR can be influenced by muscle mass, exercise, and diet. The reported eGFR is an estimation only and is only applicable if the renal function is stable. Blood BLOOD SPECIMEN / Unknown Non-Lab Venipuncture / Unknown 01/09/2025 6:17 AM TIMBER SIZER 01/09/2025 6:27 AM TIMBER SIZER Ed Chavez MD CHEMISTRY Final R esult Performing Organization Address City/[facility]/ZIP Co de Phone Number [facility] [address] [address], [place] * (ABNORMAL) LD,TOTAL (01/07/2025 6:31 AM TIMBER SIZER) Pathologist [facility] LD,TOTAL 349(H) 135 - 214 IU/L 01/07/2025 7:21 AM TIMBER SIZER [facility] Blood BLOOD SPECIMEN / Unknown Line/Port / Unknown 01/07/2025 6:31 AM TIMBER SIZER 01/07/2025 6:40 AM TIMBER SIZER Ed Chavez MD CHEMISTRY Final [facility] Performing Organization Address [facility] Co de Phone Number [facility] [address] [address], [place] * (ABNORMAL) HAPTOGLOBIN (01/06/2025 4:02 PM TIMBER SIZER) Pathologist [facility] Haptoglobin 362(H) 30 - 200 mg/dL 01/06/2025 7:51 PM TIMBER SIZER [facility] Blood BLOOD SPECIMEN / Unknown Non-Lab Venipuncture / Unknown 01/06/2025 4:02 PM TIMBER SIZER 01/06/2025 4:09 PM TIMBER SIZER Ed Chavez MD CHEMISTRY Final R esult Performing Organization Address [facility] Co de Phone Number [facility] [address] [address], [place] * Platelets AM (01/06/2025 4:16 AM TIMBER SIZER) Only the most recent of3 resultswithin the time period is included. Pathologist [facility] PLATELET COUNT 298 140 - 440 thou/cu mm 01/06/2025 4:39 AM TIMBER SIZER [facility] MPV 8.0 6.5 - 11.0 fL 01/06/2025 4:39 AM TIMBER SIZER [facility] Blood BLOOD SPECIMEN / Unknown Line/Port / Unknown 01/06/2025 4:16 AM TIMBER SIZER 01/06/2025 4:29 AM TIMBER SIZER Ed Chavez MD HEMATOLOGY Final R esult Performing Organization Address City/[facility] Co de Phone Number [facility] [address] [address], [place] * WBC AM (01/06/2025 4:16 AM TIMBER SIZER) Only the most recent of6 resultswithin the time period is included. WHITE BLOOD COUNT 9.6 4.5 - 11.0 thou/cu mm 01/06/2025 4:39 AM TIMBER SIZER [facility] NRBC 0.0 % 01/06/2025 4:39 AM TIMBER SIZER [facility] ABS NRBC 0.0 thou /cu mm 01/06/2025 4:39 AM TIMBER SIZER [facility] Blood BLOOD SPECIMEN / Unknown Line/Port / Unknown 01/06/2025 4:16 AM TIMBER SIZER 01/06/2025 4:29 AM TIMBER SIZER Ed Chavez MD HEMATOLOGY Final R [facility] Performing Organization Address [facility] Co de Phone Number [facility] [address] [id number], [place] * (ABNORMAL) RETICULOCYTES (01/06/2025 4:16 AM TIMBER SIZER) RETIC% 2.3(H) 0.5 - 1.5 % 01/06/2025 12:48 PM TIMBER SIZER [facility] RETIC (ABSOLUTE) 0.07 0.03 - 0.08 mil/cu mm 01/06/2025 12:48 PM TIMBER SIZER [facility] Blood BLOOD SPECIMEN / Unknown Line/Port / Unknown 01/06/2025 4:16 AM TIMBER SIZER 01/06/2025 4:29 AM TIMBER SIZER us Ed Chavez MD HEMATOLOGY Final R esult [facility] [address] [place] [address], [place] * [place] Venous doppler BILATERAL lower extremity (01/05/2025 10:07 AM TIMBER SIZER) Anatomical Region Laterality Modality LEGS, LEG L, LEG R Ultrasound 01/05/2025 10:1 9 AM TIMBER SIZER Impressions 01/05/2025 10:19 AM TIMBER SIZER : Unremarkable ultrasound of the bilateral lower extremity veins. No sign of venous thrombus. Dictated by Carlos Shi MD @ 01/05/2025 10:19:47 AM (Electronically Signed) Narrative 01/05/2025 10:19 AM TIMBER SIZER For Patients: As a result of the [...] R esult * PROCALCITONIN (01/05/2025 9:30 AM TIMBER SIZER) PROCALCITONIN 0.14 ng/ml 01/05/2025 10:12 AM TIMBER SIZER [facility] Blood BLOOD SPECIMEN / Unknown Non-Lab Venipuncture / Unknown 01/05/2025 9:30 AM TIMBER SIZER 01/05/2025 9:36 AM TIMBER SIZER [facility] - 01/05/2025 10:12 AM TIMBER SIZER Procalcitonin for initial assessment of Lower Respiratory [...] OUTS Final R esult Performing Organization Address [facility] Co de Phone Number [facility] [address] [place] [address], [place] * Electrolyte panel AM (01/05/2025 9:30 AM TIMBER SIZER) [facility] SODIUM 137 136 - 145 mmol/L 01/05/2025 3:42 PM TIMBER SIZER [facility] POTASSIUM 4.0 3.5 - 5.1 mmol/L 01/05/2025 3:42 PM TIMBER SIZER [facility] CHLORIDE 104 98 - 107 mmol/L 01/05/2025 3:42 PM TIMBER SIZER [facility] CO2,TOTAL 22 22 - 29 mmol/L 01/05/2025 3:42 PM TIMBER SIZER [facility] ANION GAP 11 5 - 18 01/05/2025 3:42 PM TIMBER SIZER [facility] Blood BLOOD SPECIMEN / Unknown Non-Lab Venipuncture / Unknown 01/05/2025 9:30 AM TIMBER SIZER 01/05/2025 9:36 AM TIMBER SIZER Ed Chavez MD CHEMISTRY Final R esult Performing Organization Address [facility] Co de Phone Number [facility] [address] [place] [address], [place] * (ABNORMAL) GLUCOSE METER (01/05/2025 7:55 AM TIMBER SIZER) Only the most recent of35 resultswithin the time period is included. GLUCOSE METER 144(H) 65 - 100 mg/dL 01/05/2025 7:56 AM TIMBER SIZER [facility] Blood BLOOD SPECIMEN / Unknown 01/05/2025 7:55 AM TIMBER SIZER 01/05/2025 7:56 AM TIMBER SIZER Ed Chavez MD CHEMISTRY Final R esult Performing Organization Address [facility] de Phone Number [facility] [address] [address], [place] * SODIUM,RANDOM URINE (01/04/2025 11:02 AM TIMBER SIZER) Only the most recent of2 resultswithin the time period is included. SODIUM,RANDOM URINE 92 mmol/L 01/04/2025 12:28 PM TIMBER SIZER [facility] Comment:No Reference Range D efined. Urine URINE SPECIMEN / Unknown Non-Blood / Unknown 01/04/2025 11:02 AM TIMBER SIZER 01/04/2025 11:44 AM TIMBER SIZER Ed Chavez MD URINE Final R esult Performing Organization Address [facility] de Phone Number [facility] [address] [address], [place] * Osmolality, urine TODAY (01/04/2025 11:02 AM TIMBER SIZER) Only the most recent of2 resultswithin the time period is included. OSMOLALITY,URI NE 843 50 - 1,400 mOsmol/kg 01/04/2025 12:18 PM TIMBER SIZER [facility] Urine URINE SPECIMEN / Unknown Non-Blood / Unknown 01/04/2025 11:02 AM TIMBER SIZER 01/04/2025 11:44 AM TIMBER SIZER Ed Chavez MD URINE Final R esult Performing Organization Address [facility] de Phone Number [facility] [address] [place] [address], * (ABNORMAL) Osmolality, serum TODAY (01/04/2025 11:02 AM TIMBER SIZER) OSMOLALITY 302(H) 275 - 300 mOsmol/kg 01/04/2025 1:22 PM TIMBER SIZER [facility] Comment:This is a corrected result. Previously reported as 843 mOsmol/kg with reference range 275-300 mOsmol/kg on 01/04/2025 at 1222 TIMBER SIZER Blood BLOOD SPECIMEN / Unknown Non-Lab Venipuncture / Unknown 01/04/2025 11:02 AM TIMBER SIZER 01/04/2025 11:22 AM TIMBER SIZER us Ed Chavez MD CHEMISTRY Edited Result - Final [facility] [address] [place] [address], [place] * CT HEAD BRAIN WO (01/03/2025 4:02 PM TIMBER SIZER) Only the most recent of5 resultswithin the time period is included. Anatomical Region Laterality Modality HEAD, BRAIN Computed Tomogra phy 01/03/2025 4:19 PM TIMBER SIZER Impressions 01/03/2025 4:19 PM TIMBER SIZER 1. Stable size of the right occipital [...] PM (Electronically Signed) Narrative 01/03/2025 4:19 PM TIMBER SIZER For Patients: As a result of the [...] * INSERT PICC LINE (01/01/2025 5:41 PM TIMBER SIZER) Narrative Kelechi Arora RN - 01/01/2025 5:41 PM TIMBER SIZER Kelechi Arora RN 01/01/2025 5:45 PM PICC Line Insertion Note 01/01/2025 5:41 PM Procedure education reviewed: Unable to discuss, due to patient condition and family not present., discussed with: Authorized surgical device sales representative face to face. Family face to face confirms understanding of procedure. Lime Hide Inspector used: No Reason for insertion: MD order [...] 2 Lumen Right;Basilic;Upper Arm PICC/SVC (Active) 01/01/25 4279 Right;Basilic;Upper Arm (IA) Lumen One Designation: (IA) Lumen Two Designation: Lumen One Designation: Red Lumen Two Designation: Purple Vessel Diameter: .40 [id number] Ratio (%): Visible Catheter Length (cm): 0 [...] Dressing change due date 01/08/2025 01/01/251739 Line Laborer Operator Name: Bard Line Type: Valved Power PICC Lot Number: [id number] Access Assistance:Modified Seldinger Technique (Micro-Introducer) WITHOUT Dermatotomy [...] esult * CORTISOL TOTAL (01/01/2025 4:37 PM TIMBER SIZER) Pathologist [facility] CORTISOL,TOTAL 23.7 ug/dL 01/01/2025 5:35 PM TIMBER SIZER [facility] Blood BLOOD SPECIMEN / Unknown Butterfly / Unknown 01/01/2025 4:37 PM TIMBER SIZER 01/01/2025 4:43 PM TIMBER SIZER Narrative [facility] - 01/01/2025 5:35 PM TIMBER SIZER Cortisol Morning Hours 6:00 AM - 10:00 AM (4.8-19.5 ug/dL) Cortisol Afternoon Hours 4:00 PM - 8:00 PM (2.5-11.9 ug/dL) Biotin supplements may cause clinically significant interference for this test assay. If interference is suspected, it is strongly recommended that biotin is discontinued for at least one week prior to retesting. Ed Chavez MD CHEMISTRY Final R esult Performing Organization Address [facility] Co de Phone Number [facility] [address] [place] [address], [place] * TSH FOR ADD ON (01/01/2025 11:17 AM TIMBER SIZER) TSH 1.97 0.27 - 4.20 uIU/mL 01/01/2025 4:19 PM TIMBER SIZER [facility] Blood BLOOD SPECIMEN / Unknown Butterfly / Unknown 01/01/2025 11:17 AM TIMBER SIZER 01/01/2025 11:35 AM TIMBER SIZER Narrative [facility] - 01/01/2025 4:19 PM TIMBER SIZER In Adults, TSH values between 5.00 and 10.00 uIU/ml do not necessarily indicate the presence of Hypothyroidism. Correlation with clinical findings such as presence of goiter and/or Thyroperoxidase (TPO) Antibody may be helpful. For more information please refer to REHANA 2004; 291: 228-238. Ed Chavez MD CHEMISTRY Final R esult Performing Organization Address [facility]/ZIP Co de Phone Number [facility] [address] [place] [address], [place] * CT CHEST ABDOMEN PELVIS W (12/31/2024 4:48 PM TIMBER SIZER) Anatomical Region Laterality Modality Abdomen, Pelvis, AORTA, LIVER, SPLEEN, CHEST Computed Tomography 12/31/2024 8:51 PM TIMBER SIZER Narrative 12/31/2024 8:51 PM TIMBER SIZER For Patients: As a result of the [...] esult * Blood culture (12/31/2024 12:29 PM TIMBER SIZER) Only the most recent of2 resultswithin the time period is included. CULTURE No Growth. 01/05/2025 2:55 PM TIMBER SIZER [facility] Blood BLOOD SPECIMEN / Unknown Non-Lab Venipuncture / Unknown 12/31/2024 12:29 PM TIMBER SIZER 12/31/2024 12:40 PM TIMBER SIZER [facility]ative [facility] 01/05/2025 2:55 PM TIMBER SIZER Low volume blood culture received; possible false negative culture. us Ed Chavez MD MICROBIOLOGY Final R esult Performing Organization Address City/[facility]/ZIP Co de Phone Number [facility] [address] [place] [address], * COVID/FLU/RSV PANEL (12/30/2024 10:17 AM TIMBER SIZER) COVID 19 ALLRUFFIN MOLECULAR Negative Negative 12/30/2024 11:34 AM TIMBER SIZER [facility] Comment:All PCR tests are rae bject to false negative result due to variability in viral load and collection technique. A negative result does not rule out a SARS-CoV-2 infection. Clinical correlation required. INFLUENZA A PCR Negative 11:34 AM TIMBER SIZER [facility] INFLUENZA B PCR Negative 11:34 AM TIMBER SIZER [facility] Respiratory Syncytial Virus Negative 12/30/2024 11:34 AM TIMBER SIZER [facility] Swab NASOPHARYNGEAL SWAB / Unknown Non-Blood / Unknown 12/30/2024 10:17 AM TIMBER SIZER 12/30/2024 10:31 AM TIMBER SIZER Ed Chavez MD MICROBIOLOGY Final R esult [facility] [address] [place] [address], * URINALYSIS MICROSCOPIC (12/29/2024 2:21 PM TIMBER SIZER) RBC 0-2 0-2, None Seen /HPF 12/29/2024 2:31 PM TIMBER SIZER [facility] WBC 3-5 0-2, 3-5, None Seen /HPF 12/29/2024 2:31 PM TIMBER SIZER [facility] BACTERIA None Seen None Seen, Rare, Few Bacteria/ HPF 12/29/2024 2:31 PM TIMBER SIZER [facility] EPITHELIAL CELLS None Seen None Seen, Few Epi/HPF 12/29/2024 2:31 PM TIMBER SIZER [facility] HYALINE CASTS 0-2 0-2, 3-5 /LPF 12/29/2024 2:31 PM TIMBER SIZER [facility] Urine URINE SPECIMEN / Unknown Non-Blood / Unknown 12/29/2024 2:21 PM TIMBER SIZER 12/29/2024 2:21 PM TIMBER SIZER Tino Lemus MD URINE Final Re sult [facility] [address] [place] [address], [place] * (ABNORMAL) Urinalysis TODAY (12/29/2024 2:21 PM TIMBER SIZER) Only the most recent of2 resultswithin the time period is included. COLOR Yellow Yellow Color 12/29/2024 2:31 PM [facility] CLARITY Clear Clear Clarity 12/29/2024 2:31 PM [facility] SPECIFIC GRAVITY,URINE <=1.005(A) 1.010, 1.015, 1.020, 1.025 12/29/2024 2:31 PM TIMBER SIZER [facility] PH,URINE 8.0 6.0, 7.0, 8.0, 5.5, 6.5, 7.5, 8.5 12/29/2024 2:31 PM [facility] UROBILINOGEN, QUALITATIVE Normal Normal EU/dl 12/29/2024 2:31 PM [facility] PROTEIN, URINE Negative Negative mg/dL 12/29/2024 2:31 PM [facility] GLUCOSE, URINE Negative Negative mg/dL 12/29/2024 2:31 PM [facility] KETONES,URINE Negative Negative mg/dL 12/29/2024 2:31 PM TIMBER SIZER [facility] BILIRUBIN,URI NE Negative Negative 12/29/2024 2:31 PM TIMBER SIZER [facility] OCCULT BLOOD,URINE Negative Negative 12/29/2024 2:31 PM [facility] NITRITE Negative Negative 12/29/2024 2:31 PM [facility] LEUKOCYTE ESTERASE Small(A) Negative 12/29/2024 2:31 PM TIMBER SIZER [facility] Urine URINE SPECIMEN / Unknown Non-Blood / Unknown 12/29/2024 2:21 PM TIMBER SIZER 12/29/2024 2:21 PM TIMBER SIZER Tino Lemus MD URINE Final Re sult [facility] [address] [place] [address], [place] * XR ABDOMEN 1 VIEW PORTABLE (12/28/2024 6:33 PM TIMBER SIZER) Anatomical Region Laterality Modality Abdomen Digital Radiogra phy 12/28/2024 6:59 PM TIMBER SIZER Impressions 12/28/2024 6:59 PM TIMBER SIZER Enteric tube tip in the proximal stomach. Dictated by Frederick Spencer MD @ 12/28/2024 6:59:22 PM (Electronically Signed) Narrative 12/28/2024 6:59 PM TIMBER SIZER For Patients: As a result of the [...] Result * SCAN-CARDIAC STRIP (12/28/2024 7:30 AM TIMBER SIZER) us Scanner OTHER Final Result * SCAN-RADIOLOGY REPORT (12/28/2024 12:00 AM TIMBER SIZER) Anatomical Region Laterality Modality Other Narrative 12/28/2024 12:00 AM TIMBER SIZER Ordered by an unspecified provider. us Other Clinical Staff OTHER Final Resul t * MR BRAIN WO CONTRAST (12/26/2024 4:45 PM TIMBER SIZER) Anatomical Region Laterality Modality BRAIN, HEAD Magnetic Resonan ce 12/27/2024 8:50 AM TIMBER SIZER Narrative 12/27/2024 8:50 AM TIMBER SIZER For Patients: As a result of the [...] sult * SCAN CORRESP-IMAGING (12/26/2024 10:44 AM TIMBER SIZER) Anatomical Region Laterality Modality Other Narrative 12/26/2024 10:44 AM TIMBER SIZER Ordered by an unspecified provider. us Other Clinical Staff OTHER Final Resul t * SCAN-CARDIAC STRIP (12/25/2024 10:48 PM TIMBER SIZER) us Scanner OTHER Final Result * SCAN-CARDIAC STRIP (12/25/2024 10:00 PM TIMBER SIZER) us Scanner OTHER Final Result * (ABNORMAL) CBC WITH AUTO DIFFERENTIAL (12/25/2024 9:51 PM TIMBER SIZER) WHITE BLOOD COUNT 12.0(H) 4.5 - 11.0 thou/cu mm 12/25/2024 10:14 PM TIMBER SIZER [facility] RED BLOOD COUNT 4.06 4.00 - 5.20 mil/cu mm 12/25/2024 10:14 PM TIMBER SIZER [facility] HEMOGLOBIN 12.1 12.0 - 16.0 g/dL 12/25/2024 10:14 PM [facility] HEMATOCRIT 37.4 33.0 - 51.0 % 12/25/2024 10:14 PM [facility] MCV 92 80 - 100 fL 12/25/2024 10:14 PM [facility] MCH 29.8 26.0 - 34.0 pg 12/25/2024 10:14 PM [facility] MCHC 32.4 32.0 - 36.0 g/dL 12/25/2024 10:14 PM [facility] RDW 13.3 11.5 - 15.5 % 12/25/2024 10:14 PM [facility] PLATELET COUNT 220 140 - 440 thou/cu mm 12/25/2024 10:14 PM [facility] MPV 8.7 6.5 - 11.0 fL 12/25/2024 10:14 PM [facility] NRBC 0.0 % 12/25/2024 10:14 PM [facility] ABS NRBC 0.0 thou /cu mm 12/25/2024 10:14 PM [facility] % NEUT 78.7 % 12/25/2024 10:14 PM [facility] % LYMPH 15.6 % 12/25/2024 10:14 PM [facility] % MONO 4.8 % 12/25/2024 10:14 PM [facility] % EOS 0.1 % 12/25/2024 10:14 PM [facility] % BASO 0.4 % 12/25/2024 10:14 PM [facility] TRAL LABORATORY % IMMATURE GRAN (METAS,MYELOS,NC OS) 0.4 % 12/25/2024 10:14 PM [facility] TRAL LABORATORY ABSOLUTE NEUTROPHILS 9.5(H) 1.7 - 7.0 thou/cu mm 12/25/2024 10:14 PM [facility] TRAL LABORATORY ABSOLUTE LYMPHOCYTES 1.9 0.9 - 2.9 thou/cu mm 12/25/2024 10:14 PM [facility] TRAL LABORATORY ABSOLUTE MONOCYTES 0.6 <0.9 thou/cu mm 12/25/2024 10:14 PM [facility] TRAL LABORATORY ABSOLUTE EOSINOPHILS 0.0 <0.5 thou/cu mm 12/25/2024 10:14 PM [facility] TRAL LABORATORY ABSOLUTE BASOPHILS 0.1 <0.3 thou/cu mm 12/25/2024 10:14 PM [facility] TRAL LABORATORY ABSOLUTE IMMATURE GRANULOCYTES(MET ,MYELOS,PROS) 0.1 <0.3 thou/cu mm 12/25/2024 10:14 PM TIMBER SIZER [facility] Blood BLOOD SPECIMEN / Unknown Venipuncture / Unknown 12/25/2024 9:51 PM TIMBER SIZER 12/25/2024 9:59 PM TIMBER SIZER us Helena Smith DO HEMATOLOGY Final Result [facility] [address] [place] [address], * Protime - INR (12/25/2024 9:51 PM TIMBER SIZER) INR 1.0 <1.3 12/25/2024 10:27 PM [facility] PROTIME 10.9 10.6 - 12.4 sec 12/25/2024 10:27 PM TIMBER SIZER [facility] Blood BLOOD SPECIMEN / Unknown Venipuncture / Unknown 12/25/2024 9:51 PM TIMBER SIZER 12/25/2024 9:59 PM TIMBER SIZER Narrative [facility] - 12/25/2024 10:27 PM TIMBER SIZER Therapeutic Range 2.0-3.0 for most anticoagulated patients [...] DO HEMATOLOGY Final Result Performing Organization Address [facility] de Phone Number [facility] [address] [place] [address], [place] * 12 Lead EKG (12/25/2024 9:45 PM TIMBER SIZER) Interpretation Normal sinus rhythm Normal ECG No previous ECGs available BEYOND NOW Ventricular Rate 68 BPM BEYOND NOW Atrial Rate 68 BPM BEYOND NOW P-R Interval 158 ms BEYOND NOW QRS Duration 70 ms BEYOND NOW QT 420 ms BEYOND NOW QTc 446 ms BEYOND NOW P Champion 80 degrees BEYOND NOW R Champion 58 degrees BEYOND NOW T Champion 61 degrees BEYOND NOW 12/25/2024 9:45 PM TIMBER SIZER 12/26/2024 8:39 AM TIMBER SIZER Helena Smith DO EKG ORD Final Result Performing Organization Address [facility] de Phone Number BEYOND NOW [place], [place] from Last 3 Months Insurance [employer] [place] BLUE MR PB ONLY MEDICARE PART B HB ONLY MEDICARE PART A HB ONLY [facility] MEDIC[facility] PPS Member Subscriber Plan / Payer (Ef fective 2010-Present) Name:Kylie Tabor Member ID:[id number] Relation to Subscriber:Self Name:Kylie Tabor Subscriber ID:[id number] Payer ID:Not on file Group ID:Not on file Type:Not on file Address: [facility] [address] [place] [phone] Advance Directives Documents on File Type Date Recorded Patient Ham Boner Expl anation Healthcare Directive 12/31/2024 5:22 PM Healthcare Directive 02/28/2000 12:00 AM * Full Code (Latest Code Status on File) Date Activated Date Inactivated Comments 12/25/2024 9:33 PM 01/20/2025 2:01 PM Question Answer Comments Code Status Discussion: Unable to Assess Preferences, Provider to review later * Full Code Date Activated Date Inactivated Comments 11/30/2007 12:12 PM 12/01/2007 12:17 PM Care Teams Data Architect Relationship Specialty Start Date End Date Ed Walsh MD [address] [place] [address] PCP - General Family Practice 12/29/24 Autumn Raphael AuD Audiology 08/15/12 [facility] [address] [place] [address] 01/19/25
[2025-02-03 18:53] LABS: Slide Review Reflex No
[2025-02-03 19:04] LABS: Chloride* 100 mmol/L (96-114); Potassium* 5.5 mmol/L (3.6-5.1); Sodium* 139 mmol/L (135-149)
[2025-02-03 19:07] LABS: Anion Gap 11 mEq/L (7-15); Blood Urea Nitrogen* 18 mg/dL (7-30); Calcium* 9.4 mg/dL (8.4-10.6); Carbon Dioxide* 28 mmol/L (20-32); Creatinine* 0.6 mg/dL (0.5-1.5); Estimated Glomerular Filt Rate 91 ml/min; Glucose* 99 mg/dL (60-115)
[2025-02-03 19:40] VITALS: BP 129/59; RESP 18
[2025-02-03] MEDS: HYDROCODONE-ACETAMIN 5-325 MG 1 TAB PO (20:21)
[2025-02-03 20:27] VITALS: BP 123/66; PULSE 70; RESP 18; TEMP 36.7; O2SAT 99
[2025-02-03 20:36] VITALS: O2SAT 99
--- NOTE | 2025-02-03 20:42 | ED.NURSE ---
Pt report given to EMS.
== END 2025-02-03 20:44 | disposition home or self-care (01) ==
PROVIDERS: Emergency Provider Emergency Medicine Emergency Medical Services; PCP Family Medicine
DX: R55 Syncope and collapse (principal); M54.6 Pain in thoracic spine
CPT/HCPCS: 36415; 80048; 85025; 94761; 99284; A9270

== ENCOUNTER 2025-02-03 20:44 | Outpatient (CLI) | payer MEDICARE, BC, SELFPAY ==
--- NOTE | 2025-02-06 12:14 | PC.SOCIAL ---
Follow-up to pt discharge: bottling room worker checked in to making sure resumption of care orders were obtained by [facility] for the pt since she discharged home from the hospital over the weekend. Resumption of care orders were sent to [facility] by pt's PCP Dr. Walsh on 02/03/2025. Social work to follow-up as needed.
--- NOTE | 2025-02-10 09:08 | PC.SOCIAL ---
Social work telephone call: SW received call from patient's daughter inquiring about [employer] that could accommodate a wheelchair. SW provided information for [employer] - [phone].
== END 2025-02-03 20:45 | disposition home or self-care (01) ==
PROVIDERS: PCP Family Medicine; Visit Provider Emergency Medicine
DX: M54.9 Dorsalgia, unspecified (principal); R55 Syncope and collapse; F03.90 Unspecified dementia, unspecified severity, without behavioral disturbance, psychotic disturbance, mood disturbance, and anxiety
CPT/HCPCS: A0425; A0427

== ENCOUNTER 2025-03-01 12:29 | Emergency (ER) | payer MEDICARE, BC, SELFPAY ==
--- OUTSIDE RECORDS SUMMARY | 2025-03-01 12:31 | XMS_ITS | Clinical Summary ---
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 [address] [place] [address] PCP - General Family Medicine 09/20/24
--- OUTSIDE RECORDS SUMMARY | 2025-03-01 12:31 | XMS_ITS | Data Portability ---
Author Organization [facility], [facility] Address [address] [place] [address] Care Team Providers Care Technician Support Association Name Role Phone SALONI DURANT Primary Care Provider [phone] Assessment No assessment recorded. Plan of Treatment Reminders Order Date Submit Date Provider Last Modified By Organization Details Last Modified Time Details Appointments None recorded. Lab None recorded. Referral None recorded. Procedures None recorded. Surgeries total hip arthroplas ty, anterior approach (SURG) 2023 024 [email or web address] Not available 12:49:37 Imaging XR, hip + pelvis, unilateral , 2 or 3 view 2023 024 [id number] In-Office Order, Internal Use Only DO Not Attach Compendium DO Not Attach Compendium, Do Not Delete/merge, [id number] 17:23:49 Medication Orders None recorded. Patient TargetsNo targets recorded. Patient InstructionsNo instructions recorded. Reason for Referral None Reported. Results Created Date Observation Date Name Description Value Unit Range Abnormal Flag Note LastModifiedBy Organization Detail LastModifiedTime 12/25/19 24 XR, hip + pelvi s, unila teral , 2 or 3 view No observ ation record ed. In-Office Order Internal Use Only DO Not Attach Compendium DO Not Attach Compendium, Do Not Delete/merge, [id number] 12/28/2023 17:23:48 Result Notes None recorded. Procedures Surgical History Date Name Laterality Status Provider Name and Address Organization Details Recorded Time Joint Replacement completed Kristin Aguilar [facility] 12/27/2023 16:39:40 Back Surgery completed Kristin Aguilar [facility] 12/27/2023 16:39:40 Other Surgeries completed Kristin Velasco [facility] 12/27/2023 16:39:40 Imaging Results Imaging Date Name Status LastModified by Organiz ation Details LastModified Time 12/25/2023 XR, hip + pelvis, unilateral , 2 or 3 view completed [email or web address] In-Office Order Internal Use Only DO Not Attach Compendium DO Not Attach Compendium, Do Not Delete/merge, [id number] 12/28/2023 17:23:48 Procedure Notes None recorded. Medical Equipment None Reported. Allergies No known drug allergies Vitals Date Recorded Body height Body mass index (BMI) Body weight Heart rate Systolic blood pressure Diastolic blood pressure Provider Name and Address Organization Details Last Updated DateTime 154.94 cm 18.9 kg/m2 17187.2 4 g 62 /min 122 mm[Hg] 77 mm[Hg] Wendy Wilson [facility] 16:43:21 Social History Question Answer Notes LastModified by Organizat ion Details LastModified Time Tobacco Smoking Status Never Smoker Wendy Wilson [facility] 12/27/2023 16:43:44 Do You Have An Advance Directive? Yes Per Patient Information not available 12/27/2023 If Pulse Oximetry Was Done: Is The Patient's Sp02 Less Than 93% On Room Air? No [email or web address] Information not available 12/27/2023 What Was The Date Of Your Most Recent Tobacco Screening? 12/27/2023 Information not available 12/27/2023 What Is Your Relationship Status? [email or web address] Information not available 12/27/2023 Do You Or [...] SNOMED-CT Code Diagnosis ICD10 Code Diagnosis Note [id number] José Francis MD [facility] [address] [address] 12/27/2023 16:22:23 12/27/2023 17:07:25 Pain of left hip joint 2305602963 77426 M25.552 arthritis of the left hip ; [...] Member ID Guarantor Name 12/27/2023 2 [place] - MEDICARE COST Marshall Joon Tabor [id number] Kylie Tabor Notes Date Note Type Note [...] little Work Related:no Working:no José Francis MD [address], [place], [address], [facility] - [facility] 12/28/2023 22:35:50 OBGyn Episode No OBEpisode recorded.
--- OUTSIDE RECORDS SUMMARY | 2025-03-01 12:31 | XMS_ITS | Data Portability ---
Author Organization [facility], [facility], [facility] Address [address] [address] Assessment No assessment recorded. Plan of Treatment [...] By Organization Details Last Modified Time 09/25/2023 [id number] application of wound dressing* [email or web address] Not available 09/25/2023 13:42:30 Reason for Referral None Reported. Problems Name Problem SNOMED Code Status Onset Date Resolution Date Notes Provider Name and Address Organization Details Recorded Time Tear of skin 584006049 Active 023 Luciana Stokes, DO [address], [place], [address], [facility] [employer] 09/25/2023 12:48:11 Problem Notes None recorded. Medical [...] % 97 % 156.21 cm 18.6 kg/m2 25848.2 4 g 120 mm[Hg] 59 mm[Hg] Jael Elizabeth RN [facility], [facility] 12:18:01 Social History Question Answer Notes LastModified by Organizat ion Details LastModified Time Tobacco Smoking Status Never Smoker Jael Elizabeth RN [facility] 09/25/2023 12:16:33 What Was The Date Of Your Most Recent Tobacco Screening? 09/25/2023 [email or web address] Information not available 09/25/2023 Has Tobacco Cessation Counseling Been Provided? No [email or web address] Information not available 09/25/2023 Do You Or Have You Ever Used Any Other Forms Of Tobacco Or Nicotine? No [email or web address] Information not available 09/25/2023 Sex: Unknown Functional Status None recorded. Mental Status None recorded. Family History Nothing Reported. Medical History No medical history recorded. Gynecological HistoryNo gynecological history recorded. Obstetrics History GPAL:G 0 P 0 0 0 0 Past Encounters Encounter ID Performer Location Encounter Start Date Encounter Closed Date Diagnosis/Indication Diagnosis SNOMED-CT Code Diagnosis ICD10 Code Diagnosis Note [id number] Luciana AlanDO karla [id number] [facility] [address] [place] [address] 09/25/2023 11:47:03 09/25/2023 13:06:12 Tear of skin 110128736 T14.8XXA Health Concerns Section Related Observation LastModified by Organization Detai ls LastModified Time None Recorded Concern Status LastModified by Organization Details LastModified Time None Recorded Advance Directives Directive None Recorded Payers Encounter Date Sequence Insurance Name Policy Number Policy Rashid Covered Member ID Rashid Member ID Guarantor Name 09/25/2023 2 [place] COST [id number] Kylie Tabor [id number] Kylie Tabor Notes Date Note Type Note [...] Luciana DO Kike [address] [facility] [address], [place], [address], [place] [facility], [facility] 09/25/2023 12:49:36 OBGyn Episode No OBEpisode recorded.
--- OUTSIDE RECORDS SUMMARY | 2025-03-01 12:32 | XMS_ITS | Clinical Summary ---
Author Organization [facility] Address [address] [place] [address] Care Team Providers Care Fuel Verification Technician Name Role Phone Donavon Autumn Michael Unavailable [phone] Ed Walsh MD Primary Care Provider + [facility] Unavailable [phone] Allergies No known active allergies Medications fluorouracil (EFUDEX) 5 % cream APPLY A SMALL AMOUNT TO AFFECTED AREA TWICE A DAY TO HANDS AND NOSE FOR UP TO 2 WEEKS 12/10/19 25 Active cetirizine (ZyrTEC) 10 mg tablet Take 10 mg by mouth once daily if needed. Active fish oil-omega-3 fatty acids (Fish OiL) 1,200-360 mg cap Take 1 Capsule by mouth once daily. One capsule is 1200 mg-360 mg Active multivitamins-min erals-lutein (Multivitamin 50 Plus) tab tablet Take 1 Tablet by mouth once daily. Active melatonin 3 mg tablet Take 3 mg by mouth at bedtime. Active hospital bedIndications:En cephalopathy acute,Intracrania l hemorrhage (HC) Hospital bed with mattress and full rails. Semi-electric bed. Length of need 6 months. Bed motor vehicle or caravan salesperson:no 1 Each 01/15/20 25 Active commodeIndication s:Encephalopathy acute,Nontraumati c cortical hemorrhage of right cerebral hemisphere (HC) As directed. Commode. For home use. 1 Each 01/15/20 25 Active wheelchairIndicat ions:Intracranial hemorrhage (HC) Wheelchair: Standard with leg rests: (Swing away Length of need: 12 months 1 Each 01/15/20 25 Active gabapentin (NEURONTIN) 100 mg capsuleIndication s:Back pain, unspecified back location, unspecified back pain laterality, unspecified chronicity Take 1 Capsule (100 mg) by mouth at bedtime. 30 Capsule 5 5:12 PM PARKING TECHNICIAN 01/17/20 25 Active acetaminophen (TYLENOL) 325 mg tabletIndications :Back pain, unspecified back location, unspecified back pain laterality, unspecified chronicity Take 2 Tablets (650 mg) by mouth every 4 hours if needed for Pain or Temp > (Specify) (Temp >100.4 F (38 C)). Max acetaminophen dose: 4000mg in 24 hrs. 100 Tablet 5 5:12 PM PARKING TECHNICIAN 01/17/20 25 Active lidocaine 4 % topical patchIndications: Back pain, unspecified back location, unspecified back pain laterality, unspecified chronicity Apply to intact skin to cover most painful area for max 12hr per 24hr period. 30 Patch 01/17/20 25 Active OLANzapine (ZYPREXA ZYDIS) 5 mg disintegrating tabletIndications :Encephalopathy acute,Intracrania l hemorrhage (HC) Take ONE-HALF Tablet (2.5 mg) by mouth at bedtime if needed for Sleep or Agitation. 30 Tablet 5 5:12 PM PARKING TECHNICIAN 01/17/20 25 Active propranoloL (INDERAL) 20 mg tabletIndications :Encephalopathy acute,Hypertensio n Take 1 Tablet (20 mg) by mouth two times daily. 60 Tablet 5 5:12 PM PARKING TECHNICIAN 01/17/20 25 Active glucosam-chondroi n-W-hbknzebbg 500-400-2-0.33 mg cap Take 1 Capsule by mouth once daily. 025 Discontin ued(*Dorota ent states no longer taking) calcium carbonate (OS-WILLI 500) 500 mg calcium (1,250 mg) tablet Take 500 mg by mouth once daily with a meal. 025 Discontin ued(*Dorota ent states no longer taking) zoledronic acid/mannitol-hima er (RECLAST IV) Inject intravenous. 025 Discontin ued(*Med complete/ Regimen complete/ Level of care change) amLODIPine (NORVASC) 2.5 mg tabletIndications :Intracranial hemorrhage (HC),Hypertension [The details of the medication are not available because there are pending changes by a home health clinician.] 60 Tablet 5 1:05 PM PARKING TECHNICIAN 01/20/20 25 025 Additional Information Patient not taking.Reason: See Comment (discontinued per hospital med list), Informant: Patient's Med List, Reported on 02/03/2025 mirtazapine (REMERON) 15 mg tabletIndications :Encephalopathy acute,Intracrania l hemorrhage (HC) Take 1 Tablet (15 mg) by mouth at bedtime. 30 Tablet 5 1:05 PM PARKING TECHNICIAN 01/20/20 25 025 sodium chloride 1,000 mg soluble tabletIndications :Hyponatremia Take 1 Tablet (1,000 mg) by mouth two times daily. 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 01/04/2025 Fever 01/01/2025 Stupor 01/01/2025 Cytotoxic cerebral edema 12/26/2024 Alzheimer's dementia 12/26/2024 Intracranial hemorrhage 12/26/2024 ICH (intracerebral hemorrhage) 12/25/2024 Depression 12/25/2024 Dyslipidemia 12/05/2024 Sensorineural hearing loss, bilateral 08/14/2012 Disorder of bone and cartilage, unspecified 06/2007 Encounters Date Type Department Care Team Description 02/27/2025 11:45 AM CDT [facility] [address] [facility] [phone] Toya Ley - HOME VISIT 02/27/2025 10:30 AM CDT [facility] [address] [facility] [place] [phone] Lisha Bautista, RN SN - HOME VISIT 02/27/2025 [facility] Visit [facility] [address] [facility] [place] [address] Harini Ramos LISW CARE COORDINATION 02/26/2025 10:30 AM CDT [facility] [address] [facility] [place] [address] Kathy Jaffe COTA OT - HOME VISIT 02/25/2025 9:00 AM CDT [facility] [address] [place] [address], [place] [address] David Fishman, PT PT - HOME VISIT 02/24/2025 12:00 PM CDT [facility] [address] [place] [address], [place] [address] Gracie Fernández, INVENTORY CONTROL COORDINATOR INVENTORY CONTROL COORDINATOR - HOME VISIT 02/21/2025 10:00 AM CDT [facility] [address] [place] [address], [place] [address] Lisha Bautista, DANIEL SN - HOME VISIT 02/21/2025 [facility] Visit [facility] [address] [place] [address], [place] [address] Harini Ramos LISW SUPERVISOR BRAIDING - CASE COMMUNICATION 02/20/2025 3:00 PM CDT [facility] [address] [place] [phone] David Fishman, PT PT - HOME VISIT 02/20/2025 11:45 AM CDT [facility] [address] [place] [address], [place] [address] Toya Ley PRINT PRODUCTION COORDINATOR - HOME VISIT 02/20/2025 10:00 AM CDT [facility] [address] [place] [address], [place] [address] Gracie Fernández, INVENTORY CONTROL COORDINATOR INVENTORY CONTROL COORDINATOR - INITIAL ASSESSMENT 02/19/2025 10:30 AM CDT [facility] [address] [place] [address] Kathy Jaffe COTA OT - HOME VISIT 02/18/2025 10:45 AM CDT [facility] [address] [place] [phone] David Fishman, PT PT - HOME VISIT 02/14/2025 2:00 PM CDT [facility] [address] [place] [phone] David Fishman, PT PT - HOME VISIT 02/13/2025 1:00 PM CDT [facility] [address] [place] [phone] Christelle Brock LPN WATER VESSEL CAPTAIN - HOME VISIT 02/13/2025 11:30 AM CDT [facility] [address] [place] [phone] Toya Ley PRINT PRODUCTION COORDINATOR - HOME VISIT 02/11/2025 9:00 AM CDT [facility] [address] [place] [phone] Kathy Jaffe COTA OT - HOME VISIT 02/11/2025 [facility] Visit [facility] [address] [place] [phone] Lisha Bautista, RN CARE COORDINATION 02/11/2025 Telephone [facility] [address] [facility] [address] [place] [address] Inge Barksdale, Hospital F/U 02/10/2025 3:00 PM CDT [facility] [address] [place] [phone] Harini Ramos LISW SUPERVISOR BRAIDING - INITIAL ASSESSMENT 02/10/2025 10:45 AM CDT [facility] [address] [place] [phone] David Fishman, PT PT - HOME VISIT 02/07/2025 11:30 AM CDT [facility] [address] [place] [phone] Silvana Victor OT OT - INITIAL ASSESSMENT 02/07/2025 9:00 AM CDT [facility] [address] [place] [phone] David Fishman, PT PT - HOME VISIT 02/07/2025 [facility] Visit [facility] [address] [place] [phone] David Fishman, PT CARE COORDINATION 02/06/2025 11:45 AM CDT [facility] [address] [place] [phone] Toya Ley PRINT PRODUCTION COORDINATOR - HOME VISIT 02/05/2025 10:30 AM CDT [facility] [address] [place] [phone] David Fishman, PT PT - INITIAL ASSESSMENT 02/04/2025 Nurse Triage [place] [address] [place] [address] Ed Walsh MD Low Blood Pressure; Medication Management 02/04/2025 [facility] Visit [facility] [address] [place] [phone] Harini Ramos LISW SUPERVISOR BRAIDING - CASE COMMUNICATION 02/04/2025 [facility] Visit [facility] [address] [place] [phone] Lily Kamara, PT CARE COORDINATION 02/03/2025 11:00 AM CDT [facility] [address] [place] [phone] Lisha Bautista, RN SN - OASIS RESUMPTION OF CARE 01/31/2025 [facility] Visit [facility] [address] [place] [phone] Lisha Bautista, DANIEL CARE COORDINATION 01/28/2025 [facility] Visit [facility] [address] [place] [address], [place] [address] Lisha Bautista, DANIEL MCDONNELL - OASIS TRANSFER 01/28/2025 [facility] Visit [facility] [address] [place] [address], [place] [address] Oxana Esqueda RN CARE COORDINATION 01/27/2025 [facility] Visit [facility] [address] [place] [phone] Lisha Bautista, SUPERVISING APPRAISER NOTE 01/24/2025 1:30 PM PARKING TECHNICIAN [facility] [address] [place] [address], [place] [address] David Fishman, PT PT - INITIAL ASSESSMENT 01/23/2025 11:15 AM PARKING TECHNICIAN [facility] [address] [place] [phone] Sury Silva, OT OT - INITIAL ASSESSMENT 01/23/2025 [facility] [address] [place] [phone] Oxana Esqueda, DANIEL CARE COORDINATION 01/23/2025 Nurse Triage [facility] [address] [place] [address] Ed Walsh MD Constipation 01/21/2025 7:00 AM PARKING TECHNICIAN [facility] [address] [place] [phone] Shereen Alvarez, RN SN - OASIS START OF CARE 01/21/2025 Telephone [facility] [address] [address] Shereen Alvarez, galley boy (Need ongoing orders for HH) 01/21/2025 Plan of Care Documentation [address] [phone] 01/19/2025 Travel 12/25/2024 9:26 PM PARKING TECHNICIAN - 01/20/2025 12:00 PM PARKING TECHNICIAN Hospital Encounter [facility] [address] [place] [address] Helena Smith, DO Holm, MD Mariah Bains, MD Scott Landeros, MD Yoav Salamanca, MD Abdelrahman Pérez, Ed Hilliard MD [facility], [facility] Hospitalists Of Encephalopathy acute (Primary Dx); Intracranial [...] on file Legal Sex Female 6:04 AM PARKING TECHNICIAN Gender Identity Not on file Sexual Orientation Not on file Obstetrics History Last Filed Vital Signs Vital Sign Reading Time Taken Comments Blood Pressure 103/65 02/27/2025 10:37 AM CDT Pulse 85 02/27/2025 10:37 AM CDT Temperature 36.6 C (97.8 F) 02/27/2025 10:37 AM CDT Respiratory Rate 16 02/27/2025 10:37 AM CDT Oxygen Saturation 99% 02/27/2025 10:37 AM CDT Inhaled Oxygen Concentration - - Weight 46.3 kg (102 lb) 02/03/2025 11:21 AM CDT Height 157.5 cm (5' 2) 02/03/2025 11:21 AM CDT Body Mass Index 18.66 02/03/2025 11:21 AM CDT Plan of Treatment Upcoming Encounters Date Type Department Care Team (Late Contact Info) Description 03/04/2025 9:45 AM CDT [facility] [address] [place] [phone] David Fishman, PT [address] [place] [address] 03/05/2025 10:00 AM CDT [facility] [address] [place] [phone] Sury Silva, OT [address], [place] [address] 03/05/2025 10:00 AM CDT [facility] [address] [place] [phone] RichardHarini kebede, HIPOLITO [address] [place] [address] 03/06/2025 4:00 AM CDT Home Care Visit [place] [phone] [place] [phone] Lisha Bautista, DANIEL 03/06/2025 9:30 AM CDT Home Care Visit [facility] [address] [place] [phone] David Fishman, PT [address] [place] [address] 03/06/2025 11:45 AM CDT Home Care Visit [address] [phone] Toya Ley [address] [place] [address] 03/11/2025 4:00 AM CDT Home Care Visit [place] [phone] [place] [phone] David Fishman, PT [address] [place] [address] 03/13/2025 4:00 AM CDT Home Care Visit [facility] [address] [place] [phone] Lisha Bautista RN 03/13/2025 11:45 AM CDT Home Care Visit [facility] [address] [place] [phone] Toya Ley [address] [place] [address] 03/18/2025 5:00 AM CDT Home Care Visit [address] [place] [phone] David Fishman, PT [address] [place] [address] 03/20/2025 4:00 AM CDT Appointment [facility] [address] [place] [phone] Lisha Bautista RN 03/20/2025 11:45 AM CDT [facility] [address] [place] [phone] Toya Ley [address] [place] [address] Health Maintenance Due Date Last Done Comments [...] series) 2020 COVID-19 vaccine series ( season) 2025 08/07/2024, 02/27/2024, 08/24/2023, Additional history exists Influenza Vaccine (Season Ended) 2025 Tdap Completed 06/21/2006 Procedures Procedure Name Priority Date/Time Associated Diagnosis Comments SODIUM Early AM 01/19/2025 6:37 AM PARKING TECHNICIAN HEMOGLOBIN Early AM 01/19/2025 6:37 AM PARKING TECHNICIAN XR CHEST 1 VIEW PORTABLE Routine 01/16/2025 11:15 AM PARKING TECHNICIAN SODIUM Early AM 01/16/2025 10:52 AM PARKING TECHNICIAN ALT (SGPT) Early AM 01/13/2025 10:58 AM PARKING TECHNICIAN AST (SGOT) Early AM 01/13/2025 10:58 AM PARKING TECHNICIAN ALK PHOSPHATASE Early AM 01/13/2025 10:58 AM PARKING TECHNICIAN AMMONIA Early AM 01/13/2025 10:58 AM PARKING TECHNICIAN CREATININE Early AM 01/13/2025 10:58 AM PARKING TECHNICIAN POTASSIUM Early AM 01/13/2025 10:58 AM PARKING TECHNICIAN SODIUM Early AM 01/13/2025 10:58 AM PARKING TECHNICIAN CBC W PLT NO DIFF Early AM 01/13/2025 10: 58 AM PARKING TECHNICIAN SODIUM Early AM 01/11/2025 6:45 AM PARKING TECHNICIAN HEPATIC FUNCTION PANEL EDILIA 6:46 AM PARKING TECHNICIAN SODIUM Early AM 01/10/2025 6:46 AM PARKING TECHNICIAN PHOSPHORUS Early AM 01/10/2025 6:46 AM PARKING TECHNICIAN MAGNESIUM Early AM 01/10/2025 6:46 AM PARKING TECHNICIAN POTASSIUM Early AM 01/10/2025 6:46 AM PARKING TECHNICIAN SODIUM Today 01/09/2025 4:12 PM PARKING TECHNICIAN PHOSPHORUS EDILIA 01/09/2025 6:17 AM PARKING TECHNICIAN POTASSIUM EDILIA 01/09/2025 6:17 AM PARKING TECHNICIAN MAGNESIUM EDILIA 01/09/2025 6:17 AM PARKING TECHNICIAN CBC W PLT NO DIFF Early AM 01/09/2025 6:1 7 AM PARKING TECHNICIAN BASIC METABOLIC PANEL Early AM 01/09/2025 6:17 AM PARKING TECHNICIAN SODIUM EDILIA 01/08/2025 1:24 PM PARKING TECHNICIAN POTASSIUM Timed 01/08/2025 1:24 PM PARKING TECHNICIAN POTASSIUM Today 01/08/2025 8:38 AM PARKING TECHNICIAN SODIUM Timed 01/08/2025 8:38 AM PARKING TECHNICIAN CBC W PLT NO DIFF Early AM 01/08/2025 6:2 4 AM PARKING TECHNICIAN BASIC METABOLIC PANEL Early AM 01/08/2025 6:24 AM PARKING TECHNICIAN SODIUM Timed 01/08/2025 2:44 AM PARKING TECHNICIAN SODIUM Timed 01/07/2025 9:37 PM PARKING TECHNICIAN SODIUM Timed 01/07/2025 2:23 PM PARKING TECHNICIAN SODIUM Timed 01/07/2025 8:31 AM PARKING TECHNICIAN LD,TOTAL Early AM 01/07/2025 6:31 AM PARKING TECHNICIAN HEMOGLOBIN Early AM 01/07/2025 6:31 AM PARKING TECHNICIAN SODIUM Timed 01/07/2025 3:35 AM PARKING TECHNICIAN SODIUM Timed 01/06/2025 9:24 PM PARKING TECHNICIAN HAPTOGLOBIN EDILIA 01/06/2025 4:02 PM PARKING TECHNICIAN SODIUM Timed 01/06/2025 4:02 PM PARKING TECHNICIAN SODIUM Timed 01/06/2025 9:50 AM PARKING TECHNICIAN RETICULOCYTES EDILIA 01/06/2025 4:16 AM PARKING TECHNICIAN WHITE BLOOD COUNT Early AM 01/06/2025 4:1 6 AM PARKING TECHNICIAN PLATELET COUNT Early AM 01/06/2025 4:16 AM PARKING TECHNICIAN HEMOGLOBIN Early AM 01/06/2025 4:16 AM PARKING TECHNICIAN SODIUM Timed 01/06/2025 4:16 AM PARKING TECHNICIAN SODIUM Timed 01/05/2025 9:08 PM PARKING TECHNICIAN SODIUM Timed 01/05/2025 3:18 PM PARKING TECHNICIAN US VENOUS LOWER EXTREMITY BILATERAL Routine 01/05/2025 10:07 AM PARKING TECHNICIAN CREATININE EDILIA 01/05/2025 9:30 AM PARKING TECHNICIAN ELECTROLYTE PANEL EDILIA 01/05/2025 9:3 0 AM PARKING TECHNICIAN PROCALCITONIN Today 01/05/2025 9:30 AM PARKING TECHNICIAN WHITE BLOOD COUNT Today 01/05/2025 9:3 0 AM PARKING TECHNICIAN SODIUM Timed 01/05/2025 9:30 AM PARKING TECHNICIAN XR CHEST 1 VIEW PORTABLE Routine 01/05/2025 9:25 AM PARKING TECHNICIAN GLUCOSE METER Timed 01/05/2025 7:55 AM PARKING TECHNICIAN SODIUM Timed 01/05/2025 3:04 AM PARKING TECHNICIAN GLUCOSE METER Timed 01/05/2025 1:50 AM PARKING TECHNICIAN SODIUM Timed 01/04/2025 9:11 PM PARKING TECHNICIAN GLUCOSE METER Timed 01/04/2025 6:16 PM PARKING TECHNICIAN GLUCOSE METER Timed 01/04/2025 3:22 PM PARKING TECHNICIAN SODIUM Timed 01/04/2025 3:05 PM PARKING TECHNICIAN OSMOLALITY,URINE Today 01/04/2025 11:0 2 AM PARKING TECHNICIAN OSMOLALITY EDILIA 01/04/2025 11:02 AM PARKING TECHNICIAN HEPATIC FUNCTION PANEL EDILIA 11:02 AM PARKING TECHNICIAN SODIUM,RANDOM URINE Today 01/04/2025 1 1:02 AM PARKING TECHNICIAN SODIUM Timed 01/04/2025 11:02 AM PARKING TECHNICIAN SODIUM Timed 01/04/2025 5:09 AM PARKING TECHNICIAN GLUCOSE METER Timed 01/04/2025 4:53 AM PARKING TECHNICIAN SODIUM Timed 01/03/2025 11:21 PM PARKING TECHNICIAN SODIUM Timed 01/03/2025 6:27 PM PARKING TECHNICIAN GLUCOSE METER Timed 01/03/2025 5:[address] HEAD BRAIN [facility] 01/03/2025 4:02 PM PARKING TECHNICIAN SODIUM Timed 01/03/2025 12:54 PM PARKING TECHNICIAN GLUCOSE METER Timed 01/03/2025 12:32 PM PARKING TECHNICIAN ALK PHOSPHATASE Early AM 01/03/2025 5:49 AM PARKING TECHNICIAN AST (SGOT) Early AM 01/03/2025 5:49 AM PARKING TECHNICIAN ALT (SGPT) Early AM 01/03/2025 5:49 AM PARKING TECHNICIAN HEMOGLOBIN Early AM 01/03/2025 5:49 AM PARKING TECHNICIAN SODIUM Timed 01/03/2025 5:49 AM PARKING TECHNICIAN GLUCOSE METER Timed 01/03/2025 4:53 AM PARKING TECHNICIAN SODIUM Timed 01/02/2025 11:18 PM PARKING TECHNICIAN GLUCOSE METER Timed 01/02/2025 10:32 PM PARKING TECHNICIAN SODIUM Timed 01/02/2025 5:54 PM PARKING TECHNICIAN SODIUM Timed 01/02/2025 11:27 AM PARKING TECHNICIAN PLATELET COUNT Early AM 01/02/2025 7:44 AM PARKING TECHNICIAN WHITE BLOOD COUNT Early AM 01/02/2025 7:4 4 AM PARKING TECHNICIAN HEMOGLOBIN Early AM 01/02/2025 7:44 AM PARKING TECHNICIAN BASIC METABOLIC PANEL Early AM 01/02/2025 6:35 AM PARKING TECHNICIAN SODIUM Timed 01/02/2025 6:35 AM PARKING TECHNICIAN GLUCOSE METER Timed 01/02/2025 3:59 AM PARKING TECHNICIAN SODIUM Timed 01/02/2025 1:00 AM PARKING TECHNICIAN GLUCOSE METER Timed 01/01/2025 9:27 PM PARKING TECHNICIAN GLUCOSE METER Timed 01/01/2025 6:34 PM PARKING TECHNICIAN INSERT PICC LINE Routine 01/01/2025 5:41 PM PARKING TECHNICIAN SODIUM Timed 01/01/2025 4:37 PM PARKING TECHNICIAN CORTISOL TOTAL Timed 01/01/2025 4:37 PM PARKING TECHNICIAN GLUCOSE METER Timed 01/01/2025 12:[address] HEAD BRAIN WO STAT 01/01/2025 11:5 2 AM PARKING TECHNICIAN TSH EDILIA 01/01/2025 11:17 AM PARKING TECHNICIAN SODIUM Timed 01/01/2025 11:17 AM PARKING TECHNICIAN OSMOLALITY,URINE Today 01/01/2025 9:39 AM PARKING TECHNICIAN SODIUM,RANDOM URINE Today 01/01/2025 9 :39 AM PARKING TECHNICIAN BASIC METABOLIC PANEL Early AM 01/01/2025 7:13 AM PARKING TECHNICIAN WHITE BLOOD COUNT Early AM 01/01/2025 7:1 3 AM PARKING TECHNICIAN GLUCOSE METER Timed 01/01/2025 6:06 AM PARKING TECHNICIAN GLUCOSE METER Timed 12/31/2024 10:[address] CHEST ABDOMEN PELVIS W Routine 12/31/2024 4:48 PM PARKING TECHNICIAN GLUCOSE METER Timed 12/31/2024 2:17 PM PARKING TECHNICIAN BLOOD CULTURE Today 12/31/2024 12:29 PM PARKING TECHNICIAN BLOOD CULTURE Today 12/31/2024 12:29 PM PARKING TECHNICIAN GLUCOSE METER Timed 12/31/2024 9:47 AM PARKING TECHNICIAN PHOSPHORUS Early AM 12/31/2024 6:32 AM PARKING TECHNICIAN POTASSIUM Early AM 12/31/2024 6:32 AM PARKING TECHNICIAN WHITE BLOOD COUNT Early AM 12/31/2024 6:3 2 AM PARKING TECHNICIAN GLUCOSE METER Timed 12/31/2024 4:24 AM PARKING TECHNICIAN GLUCOSE METER Timed 12/30/2024 9:13 PM PARKING TECHNICIAN GLUCOSE METER Timed 12/30/2024 5:08 PM PARKING TECHNICIAN COVID/FLU/RSV PANEL Today 12/30/2024 1 0:17 AM PARKING TECHNICIAN BASIC METABOLIC PANEL Early AM 12/30/2024 8:51 AM PARKING TECHNICIAN CBC W PLT NO DIFF Early AM 12/30/2024 8:5 1 AM PARKING TECHNICIAN PHOSPHORUS Early AM 12/30/2024 8:51 AM PARKING TECHNICIAN MAGNESIUM Early AM 12/30/2024 8:51 AM PARKING TECHNICIAN GLUCOSE METER Timed 12/30/2024 4:04 AM PARKING TECHNICIAN GLUCOSE METER Timed 12/29/2024 9:15 PM PARKING TECHNICIAN GLUCOSE METER Timed 12/29/2024 3:24 PM PARKING TECHNICIAN URINALYSIS MICROSCOPIC Timed 2:21 PM PARKING TECHNICIAN UA W/ SEDIMENT EXAM REFLEXED PER CRITERIA Today 12/29/2024 2:21 PM PARKING TECHNICIAN XR CHEST 1 VIEW PORTABLE Routine 12/29/2024 2:14 PM PARKING TECHNICIAN PHOSPHORUS Today 12/29/2024 11:28 AM PARKING TECHNICIAN GLUCOSE METER Timed 12/29/2024 9:30 AM PARKING TECHNICIAN POTASSIUM Early AM 12/29/2024 6:43 AM PARKING TECHNICIAN MAGNESIUM Early AM 12/29/2024 6:[address] HEAD BRAIN WO Routine 12/29/2024 4:23 AM PARKING TECHNICIAN GLUCOSE METER Timed 12/29/2024 2:55 AM PARKING TECHNICIAN XR ABDOMEN 1 VIEW PORTABLE STAT 12/28/2024 6:33 PM PARKING TECHNICIAN GLUCOSE METER Timed 12/28/2024 10:47 AM PARKING TECHNICIAN PHOSPHORUS Timed 12/28/2024 9:40 AM PARKING TECHNICIAN SCAN-CARDIAC STRIP 12/28/2024 7: 30 AM PARKING TECHNICIAN GLUCOSE METER Timed 12/28/2024 5:13 AM PARKING TECHNICIAN CBC W PLT NO DIFF Early AM 12/28/2024 4:2 0 AM PARKING TECHNICIAN BASIC METABOLIC PANEL Early AM 12/28/2024 4:20 AM PARKING TECHNICIAN PHOSPHORUS Early AM 12/28/2024 4:20 AM PARKING TECHNICIAN MAGNESIUM Early AM 12/28/2024 4:20 AM PARKING TECHNICIAN SCAN-RADIOLOGY REPORT 12/28/2024 12:00 AM PARKING TECHNICIAN GLUCOSE METER Timed 12/27/2024 9:12 PM PARKING TECHNICIAN GLUCOSE METER Timed 12/27/2024 2:31 PM PARKING TECHNICIAN SODIUM Timed 12/27/2024 1:51 PM PARKING TECHNICIAN GLUCOSE METER Timed 12/27/2024 9:06 AM PARKING TECHNICIAN CBC W PLT NO DIFF Early AM 12/27/2024 4:5 9 AM PARKING TECHNICIAN BASIC METABOLIC PANEL Early AM 12/27/2024 4:59 AM PARKING TECHNICIAN PHOSPHORUS Early AM 12/27/2024 4:59 AM PARKING TECHNICIAN MAGNESIUM Early AM 12/27/2024 4:59 AM PARKING TECHNICIAN GLUCOSE METER Timed 12/27/2024 4:21 AM PARKING TECHNICIAN GLUCOSE METER Timed 12/26/2024 10:07 PM PARKING TECHNICIAN MR HEAD BRAIN WO Routine 12/26/2024 4:45 PM PARKING TECHNICIAN GLUCOSE METER Timed 12/26/2024 2:52 PM PARKING TECHNICIAN SCAN CORRESP-IMAGING 12/26/2024 10:44 AM PARKING TECHNICIAN GLUCOSE METER Timed 12/26/2024 8:27 AM PARKING TECHNICIAN UA W/ SEDIMENT EXAM REFLEXED PER CRITERIA Today 12/26/2024 6:[address] HEAD BRAIN WO Routine 12/26/2024 6:12 AM PARKING TECHNICIAN WHITE BLOOD COUNT Early AM 12/26/2024 4:5 1 AM PARKING TECHNICIAN PLATELET COUNT Early AM 12/26/2024 4:51 AM PARKING TECHNICIAN HEMOGLOBIN Early AM 12/26/2024 4:51 AM PARKING TECHNICIAN BASIC METABOLIC PANEL Early AM 12/26/2024 4:51 AM PARKING TECHNICIAN PHOSPHORUS Early AM 12/26/2024 4:51 AM PARKING TECHNICIAN MAGNESIUM Early AM 12/26/2024 4:[address] HEAD BRAIN WO Timed 12/26/2024 12:5 1 AM PARKING TECHNICIAN SCAN-CARDIAC STRIP 12/25/2024 10 :48 PM PARKING TECHNICIAN SCAN-CARDIAC STRIP 12/25/2024 10 :00 PM PARKING TECHNICIAN CBC WITH AUTO DIFFERENTIAL STAT 12/25/2024 9:51 PM PARKING TECHNICIAN PROTIME-INR STAT 12/25/2024 9:51 PM PARKING TECHNICIAN HEPATIC FUNCTION PANEL STAT 9:51 PM PARKING TECHNICIAN PHOSPHORUS STAT 12/25/2024 9:51 PM PARKING TECHNICIAN MAGNESIUM STAT 12/25/2024 9:51 PM PARKING TECHNICIAN CBC WITH AUTO DIFFERENTIAL STAT 12/25/2024 9:51 PM PARKING TECHNICIAN BASIC METABOLIC PANEL STAT 12/25/2024 9:51 PM PARKING TECHNICIAN EKG 12 LEAD STAT 12/25/2024 9:45 PM PARKING TECHNICIAN GLUCOSE METER Timed 12/25/2024 9:23 PM PARKING TECHNICIAN from Last 3 Months Results * (ABNORMAL) HEMOGLOBIN (01/19/2025 6:37 AM PARKING TECHNICIAN) Only the most recent of6 resultswithin the time period is included. HEMOGLOBIN 9.5(L) 12.0 - 16.0 g/dL 01/19/2025 7:41 AM PARKING TECHNICIAN [facility] MCV 91 80 - 100 fL 01/19/2025 7:41 AM PARKING TECHNICIAN [facility] Blood BLOOD SPECIMEN / Unknown Venipuncture / Unknown 01/19/2025 6:37 AM PARKING TECHNICIAN 01/19/2025 7:27 AM PARKING TECHNICIAN Ed Quick MD HEMATOLOGY Final Result [facility] [address] [place] [address], * SODIUM (01/19/2025 6:37 AM PARKING TECHNICIAN) Only the most recent of37 resultswithin the time period is included. SODIUM 144 136 - 145 mmol/L 01/19/2025 7:45 AM PARKING TECHNICIAN [facility] Blood BLOOD SPECIMEN / Unknown Venipuncture / Unknown 01/19/2025 6:37 AM PARKING TECHNICIAN 01/19/2025 7:28 AM PARKING TECHNICIAN Ed Quick MD CHEMISTRY Final Result [facility] [address] [place] [address], [place] * XR Chest 1 view portable (01/16/2025 11:15 AM PARKING TECHNICIAN) Only the most recent of3 resultswithin the time period is included. Anatomical Region Laterality Modality HEART, THORAX, CHEST Digital Rad iography 01/16/2025 11:3 5 AM PARKING TECHNICIAN Impressions 01/16/2025 11:35 AM PARKING TECHNICIAN Negative chest Dictated by José Funk MD @ Jan 16 2025 11:35AM (Electronically Signed) [email or web address] Narrative 01/16/2025 11:35 AM PARKING TECHNICIAN For Patients: As a result of the [...] No significant osseous abnormality. Procedure Note José Fnuk MD - 01/16/2025 For Patients: As a [...] @ Jan 16 2025 11:35AM (Electronically Signed) [email or web address] Samina Cason MD GENERAL IMAGING Final Resul t * (ABNORMAL) CBC no diff AM (01/13/2025 10:58 AM PARKING TECHNICIAN) Only the most recent of6 resultswithin the time period is included. WHITE BLOOD COUNT 6.3 4.5 - 11.0 thou/cu mm 01/13/2025 11:12 AM [facility] RED BLOOD COUNT 3.10(L) 4.00 - 5.20 mil/cu mm 01/13/2025 11:12 AM [facility] HEMOGLOBIN 9.1(L) 12.0 - 16.0 g/dL 01/13/2025 11:12 AM [facility] HEMATOCRIT 27.9(L) 33.0 - 51.0 % 01/13/2025 11:12 AM [facility] MCV 90 80 - 100 fL 01/13/2025 11:12 AM [facility] MCH 29.4 26.0 - 34.0 pg 01/13/2025 11:12 AM [facility] MCHC 32.6 32.0 - 36.0 g/dL 01/13/2025 11:12 AM [facility] RDW 13.4 11.5 - 15.5 % 01/13/2025 11:12 AM [facility] PLATELET COUNT 408 140 - 440 thou/cu mm 01/13/2025 11:12 AM [facility] MPV 7.7 6.5 - 11.0 fL 01/13/2025 11:12 AM [facility] NRBC 0.0 % 01/13/2025 11:12 AM [facility] ABS NRBC 0.0 thou /cu mm 01/13/2025 11:12 AM [facility] Blood BLOOD SPECIMEN / Unknown Venipuncture / Unknown 01/13/2025 10:58 AM PARKING TECHNICIAN 01/13/2025 11:[address] [facility] Ed Chavez MD HEMATOLOGY Final R esult [facility] [address] [place] [address], [place] * POTASSIUM (01/13/2025 10:58 AM PARKING TECHNICIAN) Only the most recent of7 resultswithin the time period is included. Pathologist [facility] POTASSIUM 3.9 3.5 - 5.1 mmol/L 01/13/2025 11:37 AM PARKING TECHNICIAN [facility] Blood BLOOD SPECIMEN / Unknown Venipuncture / Unknown 01/13/2025 10:58 AM PARKING TECHNICIAN 01/13/2025 11:06 AM PARKING TECHNICIAN Ed Chavez MD CHEMISTRY Final R esult Performing Organization Address [facility] Co de Phone Number [facility] [address] [place] [address], [place] * CREATININE (01/13/2025 10:58 AM PARKING TECHNICIAN) Only the most recent of2 resultswithin the time period is included. Pathologist [facility] eGFR >90 >90 mL/min/1.7 3m2 01/13/2025 11:37 AM PARKING TECHNICIAN [facility] Comment:As of 2022, eG FR is calculated by the CKD-EPI creatinine equation without race adjustment. eGFR can be influenced by muscle mass, exercise, and diet. The reported eGFR is an estimation only and is only applicable if the renal function is stable. CREATININE 0.59 0.50 - 0.90 mg/dL 01/13/2025 11:37 AM PARKING TECHNICIAN [facility] Blood BLOOD SPECIMEN / Unknown Venipuncture / Unknown 01/13/2025 10:58 AM PARKING TECHNICIAN 01/13/2025 11:06 AM PARKING TECHNICIAN Ed Chavez MD CHEMISTRY Final R esult Performing Organization Address [facility] Co de Phone Number [facility] [address] [place] [address], [place] * (ABNORMAL) ALT AM (01/13/2025 10:58 AM PARKING TECHNICIAN) Only the most recent of2 resultswithin the time period is included. Pathologist [facility] ALT (SGPT) 45(H) 10 - 35 IU/L 01/13/2025 11:37 AM PARKING TECHNICIAN [facility] Blood BLOOD SPECIMEN / Unknown Venipuncture / Unknown 01/13/2025 10:58 AM PARKING TECHNICIAN 01/13/2025 11:06 AM PARKING TECHNICIAN Ed Chavez MD CHEMISTRY Final [facility] Performing Organization Address City/[facility]/ZIP Co de Phone Number [facility] [address] [place] [address], [place] * AST AM (01/13/2025 10:58 AM PARKING TECHNICIAN) Only the most recent of2 resultswithin the time period is included. AST (SGOT) 27 10 - 35 IU/L 01/13/2025 11:37 AM PARKING TECHNICIAN [facility] Blood BLOOD SPECIMEN / Unknown Venipuncture / Unknown 01/13/2025 10:58 AM PARKING TECHNICIAN 01/13/2025 11:06 AM PARKING TECHNICIAN Ed Chavez MD CHEMISTRY Final R [facility] Performing Organization Address [facility] Co de Phone Number [facility] [address] [place] [address], [place] * (ABNORMAL) Alk phosphatase AM (01/13/2025 10:58 AM PARKING TECHNICIAN) Only the most recent of2 resultswithin the time period is included. ALK PHOSPHATASE 110(H) 35 - 104 IU/L 01/13/2025 11:37 AM PARKING TECHNICIAN [facility] Blood BLOOD SPECIMEN / Unknown Venipuncture / Unknown 01/13/2025 10:58 AM PARKING TECHNICIAN 01/13/2025 11:06 AM PARKING TECHNICIAN Ed Chavez MD CHEMISTRY Final R esult Performing Organization Address City/[facility]/ZIP Co de Phone Number [facility] [address] [address], [place] * Ammonia AM (01/13/2025 10:58 AM PARKING TECHNICIAN) AMMONIA 18 16 - 60 umol/L 01/13/2025 11:29 AM PARKING TECHNICIAN [facility] Blood BLOOD SPECIMEN / Unknown Venipuncture / Unknown 01/13/2025 10:58 AM PARKING TECHNICIAN 01/13/2025 11:06 AM PARKING TECHNICIAN Narrative [facility] - 01/13/2025 11:29 AM PARKING TECHNICIAN 1. Sulfasalazine and its metabolite Sulfapyridine at therapeutic concentrations may lead to falsely low results. 2. Temozolomide and its metabolite MTIC may lead to falsely elevated results, and its metabolite AIC may lead to falsely low results. Ed Chavez MD CHEMISTRY Final R esult Performing Organization Address City/[facility]/ZIP Co de Phone Number [facility] [address] [place] [address], [place] * PHOSPHORUS (01/10/2025 6:46 AM PARKING TECHNICIAN) Only the most recent of10 resultswithin the time period is included. PHOSPHORUS 3.6 2.5 - 4.5 mg/dL 01/10/2025 7:35 AM PARKING TECHNICIAN [facility] Blood BLOOD SPECIMEN / Unknown Butterfly / Unknown 01/10/2025 6:46 AM PARKING TECHNICIAN 01/10/2025 7:01 AM PARKING TECHNICIAN Pina Mendez RN CHEMISTRY Final Result Performing Organization Address City/[facility]/ZIP Co de Phone Number [facility] [address] [place] [address], [place] * MAGNESIUM (01/10/2025 6:46 AM PARKING TECHNICIAN) Only the most recent of8 resultswithin the time period is included. MAGNESIUM 2.1 1.6 - 2.4 mg/dL 01/10/2025 7:35 AM PARKING TECHNICIAN [facility] Blood BLOOD SPECIMEN / Unknown Butterfly / Unknown 01/10/2025 6:46 AM PARKING TECHNICIAN 01/10/2025 7:01 AM PARKING TECHNICIAN Pina Mendez RN CHEMISTRY Final Result Performing Organization Address City/[facility]/ZIP Co de Phone Number [facility] [address] [place] [address], [place] * (ABNORMAL) HEPATIC FUNCTION PANEL (01/10/2025 6:46 AM PARKING TECHNICIAN) Only the most recent of3 resultswithin the time period is included. ALBUMIN 3.7(L) 4.0 - 4.9 g/dL 01/10/2025 12:18 PM PARKING TECHNICIAN [facility] PROTEIN,TOTAL 7.0 6.0 - 8.0 g/dL 01/10/2025 12:18 PM PARKING TECHNICIAN [facility] BILIRUBIN,TOTAL 0.5 0.0 - 1.2 mg/dL 01/10/2025 12:18 PM PARKING TECHNICIAN [facility] BILIRUBIN,DIRECT 0.2 0.0 - 0.2 mg/dL 01/10/2025 12:18 PM PARKING TECHNICIAN [facility] BILIRUBIN,INDIRE CT 0.3 0.2 - 0.8 mg/dL 01/10/2025 12:18 PM PARKING TECHNICIAN [facility] ALK PHOSPHATASE 129(H) 35 - 104 IU/L 01/10/2025 12:18 PM PARKING TECHNICIAN [facility] ALT (SGPT) 59(H) 10 - 35 IU/L 01/10/2025 12:18 PM PARKING TECHNICIAN [facility] AST (SGOT) 34 10 - 35 IU/L 01/10/2025 12:18 PM [facility] Blood BLOOD SPECIMEN / Unknown Butterfly / Unknown 01/10/2025 6:46 AM PARKING TECHNICIAN 01/10/2025 7:01 AM PARKING TECHNICIAN Hernan Singh DO CHEMISTRY Final Result Performing Organization Address City/[facility]/ZIP Co de Phone Number [facility] [address] [place] [address], [place] * (ABNORMAL) Basic metabolic panel AM (01/09/2025 6:17 AM PARKING TECHNICIAN) Only the most recent of9 resultswithin the time period is included. SODIUM 136 136 - 145 mmol/L 01/09/2025 6:57 AM [facility] POTASSIUM 3.7 3.5 - 5.1 mmol/L 01/09/2025 6:57 AM [facility] CHLORIDE 100 98 - 107 mmol/L 01/09/2025 6:57 AM [facility] CO2,TOTAL 24 22 - 29 mmol/L 01/09/2025 6:57 AM [facility] ANION GAP 12 5 - 18 01/09/2025 6:57 AM [facility] GLUCOSE 111(H) 70 - 99 mg/dL 01/09/2025 6:57 AM [facility] CALCIUM 9.0 8.8 - 10.4 mg/dL 01/09/2025 6:57 AM [facility] Comment: Reference ranges for this test were updated on 09/24/2024 to reflect our healthy population more accurately. Reference range changes are not retroactively applied to results, but previous results using the same methodology can be interpreted in the context of the new reference range. BUN 9 8 - 23 mg/dL 01/09/2025 6:57 AM [facility] CREATININE 0.38(L) 0.50 - 0.90 mg/dL 01/09/2025 6:57 AM [facility] BUN/CREAT RATIO 24(H) 10 - 6:57 AM [facility] eGFR >90 >90 mL/min/1. 73m2 01/09/2025 6:57 AM [facility] Comment:As of 2022, eG FR is calculated by the CKD-EPI creatinine equation without race adjustment. eGFR can be influenced by muscle mass, exercise, and diet. The reported eGFR is an estimation only and is only applicable if the renal function is stable. Blood BLOOD SPECIMEN / Unknown Non-Lab Venipuncture / Unknown 01/09/2025 6:17 AM PARKING TECHNICIAN 01/09/2025 6:27 AM PARKING TECHNICIAN Ed Chavez MD CHEMISTRY Final R esult Performing Organization Address [facility] Co de Phone Number [facility] [address] [address], [place] * (ABNORMAL) LD,TOTAL (01/07/2025 6:31 AM PARKING TECHNICIAN) LD,TOTAL 349(H) 135 - 214 IU/L 01/07/2025 7:21 AM PARKING TECHNICIAN [facility] Blood BLOOD SPECIMEN / Unknown Line/Port / Unknown 01/07/2025 6:31 AM PARKING TECHNICIAN 01/07/2025 6:40 AM PARKING TECHNICIAN Ed Chavez MD CHEMISTRY Final R esult Performing Organization Address [facility] de Phone Number [facility] [address] [address], [place] * (ABNORMAL) HAPTOGLOBIN (01/06/2025 4:02 PM PARKING TECHNICIAN) Pathologist [facility] Haptoglobin 362(H) 30 - 200 mg/dL 01/06/2025 7:51 PM PARKING TECHNICIAN [facility] Blood BLOOD SPECIMEN / Unknown Non-Lab Venipuncture / Unknown 01/06/2025 4:02 PM PARKING TECHNICIAN 01/06/2025 4:09 PM PARKING TECHNICIAN Ed Chavez MD CHEMISTRY Final R esult Performing Organization Address [facility] Co de Phone Number [facility] [address] [address], [place] * Platelets AM (01/06/2025 4:16 AM PARKING TECHNICIAN) Only the most recent of3 resultswithin the time period is included. Pathologist [facility] PLATELET COUNT 298 140 - 440 thou/cu mm 01/06/2025 4:39 AM PARKING TECHNICIAN [facility] MPV 8.0 6.5 - 11.0 fL 01/06/2025 4:39 AM PARKING TECHNICIAN [facility] Blood BLOOD SPECIMEN / Unknown Line/Port / Unknown 01/06/2025 4:16 AM PARKING TECHNICIAN 01/06/2025 4:29 AM PARKING TECHNICIAN Ed Chavez MD HEMATOLOGY Final R esult Performing Organization Address [facility] de Phone Number [facility] [address] [address], [place] * WBC AM (01/06/2025 4:16 AM PARKING TECHNICIAN) Only the most recent of6 resultswithin the time period is included. WHITE BLOOD COUNT 9.6 4.5 - 11.0 thou/cu mm 01/06/2025 4:39 AM PARKING TECHNICIAN [facility] NRBC 0.0 % 01/06/2025 4:39 AM PARKING TECHNICIAN [facility] ABS NRBC 0.0 thou /cu mm 01/06/2025 4:39 AM PARKING TECHNICIAN [facility] Blood BLOOD SPECIMEN / Unknown Line/Port / Unknown 01/06/2025 4:16 AM PARKING TECHNICIAN 01/06/2025 4:29 AM PARKING TECHNICIAN Ed Chavez MD HEMATOLOGY Final [facility] Performing Organization Address [facility] de Phone Number [facility] [address] [place] [address], [place] * (ABNORMAL) RETICULOCYTES (01/06/2025 4:16 AM PARKING TECHNICIAN) RETIC% 2.3(H) 0.5 - 1.5 % 01/06/2025 12:48 PM PARKING TECHNICIAN [facility] RETIC (ABSOLUTE) 0.07 0.03 - 0.08 mil/cu mm 01/06/2025 12:48 PM PARKING TECHNICIAN [facility] Blood BLOOD SPECIMEN / Unknown Line/Port / Unknown 01/06/2025 4:16 AM PARKING TECHNICIAN 01/06/2025 4:29 AM PARKING TECHNICIAN us Ed Chavez MD HEMATOLOGY Final R esult [facility] [address] [place] [address], [place] * [place] Venous doppler BILATERAL lower extremity (01/05/2025 10:07 AM PARKING TECHNICIAN) Anatomical Region Laterality Modality LEGS, LEG L, LEG R Ultrasound 01/05/2025 10:1 9 AM PARKING TECHNICIAN Impressions 01/05/2025 10:19 AM PARKING TECHNICIAN : Unremarkable ultrasound of the bilateral lower extremity veins. No sign of venous thrombus. Dictated by Carlos Shi MD @ 01/05/2025 10:19:47 AM (Electronically Signed) Narrative 01/05/2025 10:19 AM PARKING TECHNICIAN For Patients: As a result of the [...] R esult * PROCALCITONIN (01/05/2025 9:30 AM PARKING TECHNICIAN) PROCALCITONIN 0.14 ng/ml 01/05/2025 10:12 AM [facility] Blood BLOOD SPECIMEN / Unknown Non-Lab Venipuncture / Unknown 01/05/2025 9:30 AM PARKING TECHNICIAN 01/05/2025 9:36 AM [facility]CHN[facility] 01/05/2025 10:12 AM PARKING TECHNICIAN Procalcitonin for initial assessment of Lower Respiratory [...] Organization Address [facility] Co de Phone Number [facility] [address] [address], [place] * Electrolyte panel AM (01/05/2025 9:30 AM PARKING TECHNICIAN) SODIUM 137 136 - 145 mmol/L 01/05/2025 3:42 PM PARKING TECHNICIAN [facility] POTASSIUM 4.0 3.5 - 5.1 mmol/L 01/05/2025 3:42 PM PARKING TECHNICIAN [facility] CHLORIDE 104 98 - 107 mmol/L 01/05/2025 3:42 PM PARKING TECHNICIAN [facility] CO2,TOTAL 22 22 - 29 mmol/L 01/05/2025 3:42 PM PARKING TECHNICIAN [facility] ANION GAP 11 5 - 18 01/05/2025 3:42 PM PARKING TECHNICIAN [facility] Blood BLOOD SPECIMEN / Unknown Non-Lab Venipuncture / Unknown 01/05/2025 9:30 AM PARKING TECHNICIAN 01/05/2025 9:36 AM PARKING TECHNICIAN Ed Chavez MD CHEMISTRY Final R esult Performing Organization Address [facility] Co de Phone Number [facility] [address] [place] [address], [place] * (ABNORMAL) GLUCOSE METER (01/05/2025 7:55 AM PARKING TECHNICIAN) Only the most recent of35 resultswithin the time period is included. GLUCOSE METER 144(H) 65 - 100 mg/dL 01/05/2025 7:56 AM PARKING TECHNICIAN [facility] Blood BLOOD SPECIMEN / Unknown 01/05/2025 7:55 AM PARKING TECHNICIAN 01/05/2025 7:56 AM PARKING TECHNICIAN Ed Chavez MD CHEMISTRY Final R esult Performing Organization Address [facility] Co de Phone Number [facility] [address] [address], [place] * SODIUM,RANDOM URINE (01/04/2025 11:02 AM PARKING TECHNICIAN) Only the most recent of2 resultswithin the time period is included. SODIUM,RANDOM URINE 92 mmol/L 01/04/2025 12:28 PM PARKING TECHNICIAN [facility] Comment:No Reference Range D efined. Urine URINE SPECIMEN / Unknown Non-Blood / Unknown 01/04/2025 11:02 AM PARKING TECHNICIAN 01/04/2025 11:44 AM PARKING TECHNICIAN Ed Chavez MD URINE Final R esult Performing Organization Address [facility] Co de Phone Number [facility] [address] [address], [place] * Osmolality, urine TODAY (01/04/2025 11:02 AM PARKING TECHNICIAN) Only the most recent of2 resultswithin the time period is included. OSMOLALITY,URI NE 843 50 - 1,400 mOsmol/kg 01/04/2025 12:18 PM PARKING TECHNICIAN [facility] Urine URINE SPECIMEN / Unknown Non-Blood / Unknown 01/04/2025 11:02 AM PARKING TECHNICIAN 01/04/2025 11:44 AM PARKING TECHNICIAN Ed Chavez MD URINE Final R esult Performing Organization Address [facility] Co de Phone Number [facility] [address] [address], [place] * (ABNORMAL) Osmolality, serum TODAY (01/04/2025 11:02 AM PARKING TECHNICIAN) OSMOLALITY 302(H) 275 - 300 mOsmol/kg 01/04/2025 1:22 PM PARKING TECHNICIAN [facility] Comment:This is a corrected result. Previously reported as 843 mOsmol/kg with reference range 275-300 mOsmol/kg on 01/04/2025 at 1222 PARKING TECHNICIAN Blood BLOOD SPECIMEN / Unknown Non-Lab Venipuncture / Unknown 01/04/2025 11:02 AM PARKING TECHNICIAN 01/04/2025 11:22 AM PARKING TECHNICIAN us Ed Chavez MD CHEMISTRY Edited Result - Final [facility] [address] [place] [address], * CT HEAD BRAIN WO (01/03/2025 4:02 PM PARKING TECHNICIAN) Only the most recent of5 resultswithin the time period is included. Anatomical Region Laterality Modality HEAD, BRAIN Computed Tomogra phy 01/03/2025 4:19 PM PARKING TECHNICIAN Impressions 01/03/2025 4:19 PM PARKING TECHNICIAN 1. Stable size of the right occipital [...] PM (Electronically Signed) Narrative 01/03/2025 4:19 PM PARKING TECHNICIAN For Patients: As a result of the 21st Century Cures Act, medical imaging exams and [...] Bilateral lens implants. Procedure Note Bettie Renteria, - 01/03/2025 For Patients: As a result of the Century Cures Act, medical imagingexams and procedure reports [...] * INSERT PICC LINE (01/01/2025 5:41 PM PARKING TECHNICIAN) Narrative Kelechi Arora RN - 01/01/2025 5:41 PM PARKING TECHNICIAN Kelechi Arora RN 01/01/2025 5:45 PM PICC Line Insertion Note 01/01/2025 5:41 PM Procedure education reviewed: Unable to discuss, due to patient condition and family not present., discussed with: Authorized contact center representative face to face. Family face to face confirms understanding of procedure. Filter Press Supervisor used: No Reason for insertion: MD order [...] 2 Lumen Right;Basilic;Upper Arm PICC/SVC (Active) 01/01/25 1739 Right;Basilic;Upper Arm (IA) Lumen One Designation: (IA) Lumen Two Designation: Lumen One Designation: Red Lumen Two Designation: Purple Vessel Diameter: .40 [id number] Ratio (%): Visible Catheter Length (cm): 0 [...] Dressing change due date 01/08/2025 01/01/251739 Line Director Institution Name: [employer] Line Type: Valved Power PICC Lot Number: [id number] Access Assistance:Modified Seldinger Technique (Micro-Introducer) WITHOUT Dermatotomy [...] esult * CORTISOL TOTAL (01/01/2025 4:37 PM PARKING TECHNICIAN) CORTISOL,TOTAL 23.7 ug/dL 01/01/2025 5:35 PM PARKING TECHNICIAN [facility] Blood BLOOD SPECIMEN / Unknown Butterfly / Unknown 01/01/2025 4:37 PM PARKING TECHNICIAN 01/01/2025 4:43 PM PARKING TECHNICIAN Narrative [facility] - 01/01/2025 5:35 PM PARKING TECHNICIAN Cortisol Morning Hours 6:00 AM - 10:00 [...] Organization Address [facility] de Phone Number [facility] [address] [place] [id number], [place] * TSH FOR ADD ON (01/01/2025 11:17 AM PARKING TECHNICIAN) TSH 1.97 0.27 - 4.20 uIU/mL 01/01/2025 4:19 PM PARKING TECHNICIAN [facility] Blood BLOOD SPECIMEN / Unknown Butterfly / Unknown 01/01/2025 11:17 AM PARKING TECHNICIAN 01/01/2025 11:35 AM PARKING TECHNICIAN Narrative [facility] - 01/01/2025 4:19 PM PARKING TECHNICIAN In Adults, TSH values between 5.00 and 10.00 uIU/ml do not necessarily indicate the presence of Hypothyroidism. Correlation with clinical findings such as presence of goiter and/or Thyroperoxidase (TPO) Antibody may be helpful. For more information please refer to REHANA 2004; 291: 228-238. Ed Chavez MD CHEMISTRY Final R esult Performing Organization Address [facility] de Phone Number [facility] [address] [place] [id number], [place] * CT CHEST ABDOMEN PELVIS W (12/31/2024 4:48 PM PARKING TECHNICIAN) Anatomical Region Laterality Modality Abdomen, Pelvis, AORTA, LIVER, SPLEEN, CHEST Computed Tomography 12/31/2024 8:51 PM PARKING TECHNICIAN Narrative 12/31/2024 8:51 PM PARKING TECHNICIAN For Patients: As a result of the [...] For Patients: As a result of the 21st Century Cures Act, medical imagingexams and procedure reports [...] esult * Blood culture (12/31/2024 12:29 PM PARKING TECHNICIAN) Only the most recent of2 resultswithin the time period is included. CULTURE No Growth. 01/05/2025 2:55 PM PARKING TECHNICIAN [facility] Blood BLOOD SPECIMEN / Unknown Non-Lab Venipuncture / Unknown 12/31/2024 12:29 PM PARKING TECHNICIAN 12/31/2024 12:40 PM PARKING TECHNICIAN Narrative [facility] - 01/05/2025 2:55 PM PARKING TECHNICIAN Low volume blood culture received; possible false negative culture. Ed Chavez MD MICROBIOLOGY Final R esult [facility] [address] [place] [address], * COVID/FLU/RSV PANEL (12/30/2024 10:17 AM PARKING TECHNICIAN) COVID 19 ALLDAMARIS MOLECULAR Negative Negative 12/30/2024 11:34 AM PARKING TECHNICIAN [facility] Comment:All PCR tests are rae bject to false negative result due to variability in viral load and collection technique. A negative result does not rule out a SARS-CoV-2 infection. Clinical correlation required. INFLUENZA A PCR Negative 11:34 AM PARKING TECHNICIAN [facility] INFLUENZA B PCR Negative 11:34 AM PARKING TECHNICIAN [facility] Respiratory Syncytial Virus Negative 12/30/2024 11:34 AM PARKING TECHNICIAN [facility] Swab NASOPHARYNGEAL SWAB / Unknown Non-Blood / Unknown 12/30/2024 10:17 AM PARKING TECHNICIAN 12/30/2024 10:31 AM PARKING TECHNICIAN Ed Chavez MD MICROBIOLOGY Final R esult [facility] [address] [place] [address], * URINALYSIS MICROSCOPIC (12/29/2024 2:21 PM PARKING TECHNICIAN) RBC 0-2 0-2, None Seen /HPF 12/29/2024 2:31 PM PARKING TECHNICIAN [facility] WBC 3-5 0-2, 3-5, None Seen /HPF 12/29/2024 2:31 PM PARKING TECHNICIAN [facility] BACTERIA None Seen None Seen, Rare, Few Bacteria/ HPF 12/29/2024 2:31 PM PARKING TECHNICIAN [facility] EPITHELIAL CELLS None Seen None Seen, Few Epi/HPF 12/29/2024 2:31 PM PARKING TECHNICIAN [facility] HYALINE CASTS 0-2 0-2, 3-5 /LPF 12/29/2024 2:31 PM PARKING TECHNICIAN [facility] Urine URINE SPECIMEN / Unknown Non-Blood / Unknown 12/29/2024 2:21 PM PARKING TECHNICIAN 12/29/2024 2:21 PM PARKING TECHNICIAN Tino Lemus MD URINE Final Re sult [facility] [address] [place] [address], [place] * (ABNORMAL) Urinalysis TODAY (12/29/2024 2:21 PM PARKING TECHNICIAN) Only the most recent of2 resultswithin the time period is included. COLOR Yellow Yellow Color 12/29/2024 2:31 PM PARKING TECHNICIAN [facility] CLARITY Clear Clear Clarity 12/29/2024 2:31 PM PARKING TECHNICIAN [facility] SPECIFIC GRAVITY,URINE <=1.005(A) 1.010, 1.015, 1.020, 1.025 12/29/2024 2:31 PM PARKING TECHNICIAN [facility] PH,URINE 8.0 6.0, 7.0, 8.0, 5.5, 6.5, 7.5, 8.5 12/29/2024 2:31 PM PARKING TECHNICIAN [facility] UROBILINOGEN, QUALITATIVE Normal Normal EU/dl 12/29/2024 2:31 PM PARKING TECHNICIAN [facility] PROTEIN, URINE Negative Negative mg/dL 12/29/2024 2:31 PM PARKING TECHNICIAN [facility] GLUCOSE, URINE Negative Negative mg/dL 12/29/2024 2:31 PM PARKING TECHNICIAN [facility] KETONES,URINE Negative Negative mg/dL 12/29/2024 2:31 PM PARKING TECHNICIAN [facility] BILIRUBIN,URI NE Negative Negative 12/29/2024 2:31 PM PARKING TECHNICIAN [facility] OCCULT BLOOD,URINE Negative Negative 12/29/2024 2:31 PM PARKING TECHNICIAN [facility] NITRITE Negative Negative 12/29/2024 2:31 PM PARKING TECHNICIAN [facility] LEUKOCYTE ESTERASE Small(A) Negative 12/29/2024 2:31 PM PARKING TECHNICIAN [facility] Urine URINE SPECIMEN / Unknown Non-Blood / Unknown 12/29/2024 2:21 PM PARKING TECHNICIAN 12/29/2024 2:21 PM PARKING TECHNICIAN Tino Lemus MD URINE Final Re sult [facility] [address] [place] [address], [place] * XR ABDOMEN 1 VIEW PORTABLE (12/28/2024 6:33 PM PARKING TECHNICIAN) Anatomical Region Laterality Modality Abdomen Digital Radiogra phy 12/28/2024 6:59 PM PARKING TECHNICIAN Impressions 12/28/2024 6:59 PM PARKING TECHNICIAN Enteric tube tip in the proximal stomach. Dictated by Frederick Spencer MD @ 12/28/2024 6:59:22 PM (Electronically Signed) Narrative 12/28/2024 6:59 PM PARKING TECHNICIAN For Patients: As a result of the [...] Result * SCAN-CARDIAC STRIP (12/28/2024 7:30 AM PARKING TECHNICIAN) us Scanner OTHER Final Result * SCAN-RADIOLOGY REPORT (12/28/2024 12:00 AM PARKING TECHNICIAN) Anatomical Region Laterality Modality Other Narrative 12/28/2024 12:00 AM PARKING TECHNICIAN Ordered by an unspecified provider. us Other Clinical Staff OTHER Final Resul t * MR BRAIN WO CONTRAST (12/26/2024 4:45 PM PARKING TECHNICIAN) Anatomical Region Laterality Modality BRAIN, HEAD Magnetic Resonan ce 12/27/2024 8:50 AM PARKING TECHNICIAN Narrative 12/27/2024 8:50 AM PARKING TECHNICIAN For Patients: As a result of the [...] sult * SCAN CORRESP-IMAGING (12/26/2024 10:44 AM PARKING TECHNICIAN) Anatomical Region Laterality Modality Other Narrative 12/26/2024 10:44 AM PARKING TECHNICIAN Ordered by an unspecified provider. us Other Clinical Staff OTHER Final Resul t * SCAN-CARDIAC STRIP (12/25/2024 10:48 PM PARKING TECHNICIAN) us Scanner OTHER Final Result * SCAN-CARDIAC STRIP (12/25/2024 10:00 PM PARKING TECHNICIAN) us Scanner OTHER Final Result * (ABNORMAL) CBC WITH AUTO DIFFERENTIAL (12/25/2024 9:51 PM PARKING TECHNICIAN) [facility] WHITE BLOOD COUNT 12.0(H) 4.5 - 11.0 thou/cu mm 12/25/2024 10:14 PM PARKING TECHNICIAN [facility] RED BLOOD COUNT 4.06 4.00 - 5.20 mil/cu mm 12/25/2024 10:14 PM PARKING TECHNICIAN [facility] HEMOGLOBIN 12.1 12.0 - 16.0 g/dL 12/25/2024 10:14 PM PARKING TECHNICIAN [facility] HEMATOCRIT 37.4 33.0 - 51.0 % 12/25/2024 10:14 PM [facility] MCV 92 80 - 100 fL 12/25/2024 10:14 PM [facility] MCH 29.8 26.0 - 34.0 pg 12/25/2024 10:14 PM [facility] MCHC 32.4 32.0 - 36.0 g/dL 12/25/2024 10:14 PM [facility] RDW 13.3 11.5 - 15.5 % 12/25/2024 10:14 PM [facility] PLATELET COUNT 220 140 - 440 thou/cu mm 12/25/2024 10:14 PM [facility] MPV 8.7 6.5 - 11.0 fL 12/25/2024 10:14 PM [facility] NRBC 0.0 % 12/25/2024 10:14 PM [facility] ABS NRBC 0.0 thou /cu mm 12/25/2024 10:14 PM [facility] % NEUT 78.7 % 12/25/2024 10:14 PM [facility] % LYMPH 15.6 % 12/25/2024 10:14 PM [facility] % MONO 4.8 % 12/25/2024 10:14 PM [facility] % EOS 0.1 % 12/25/2024 10:14 PM [facility] % BASO 0.4 % 12/25/2024 10:14 PM [facility] % IMMATURE GRAN (METAS,MYELOS,IA OS) 0.4 % 12/25/2024 10:14 PM [facility] ABSOLUTE NEUTROPHILS 9.5(H) 1.7 - 7.0 thou/cu mm 12/25/2024 10:14 PM [facility] ABSOLUTE LYMPHOCYTES 1.9 0.9 - 2.9 thou/cu mm 12/25/2024 10:14 PM [facility] ABSOLUTE MONOCYTES 0.6 <0.9 thou/cu mm 12/25/2024 10:14 PM PARKING TECHNICIAN [facility] ABSOLUTE EOSINOPHILS 0.0 <0.5 thou/cu mm 12/25/2024 10:14 PM PARKING TECHNICIAN [facility] ABSOLUTE BASOPHILS 0.1 <0.3 thou/cu mm 12/25/2024 10:14 PM PARKING TECHNICIAN [facility] ABSOLUTE IMMATURE GRANULOCYTES(MET ,MYELOS,PROS) 0.1 <0.3 thou/cu mm 12/25/2024 10:14 PM PARKING TECHNICIAN [facility] Blood BLOOD SPECIMEN / Unknown Venipuncture / Unknown 12/25/2024 9:51 PM PARKING TECHNICIAN 12/25/2024 9:59 PM PARKING TECHNICIAN us Helena Smith DO HEMATOLOGY Final Result Performing Organization Address City/State/[facility] Co de Phone Number [facility] [address] [place] [id number], * Protime - INR (12/25/2024 9:51 PM PARKING TECHNICIAN) INR 1.0 <1.3 12/25/2024 10:27 PM [facility] PROTIME 10.9 10.6 - 12.4 sec 12/25/2024 10:27 PM [facility] Blood BLOOD SPECIMEN / Unknown Venipuncture / Unknown 12/25/2024 9:51 PM PARKING TECHNICIAN 12/25/2024 9:59 PM PARKING TECHNICIAN Narrative [facility] - 12/25/2024 10:27 PM PARKING TECHNICIAN Therapeutic Range 2.0-3.0 for most anticoagulated patients [...] seconds if the patient is on UFH. us Helena Smith DO HEMATOLOGY Final Result Performing Organization Address City/[facility] Co de Phone Number [facility] [address] [place] [address], * 12 Lead EKG (12/25/2024 9:45 PM PARKING TECHNICIAN) Interpretation Normal sinus rhythm Normal ECG No previous ECGs available BEYOND NOW Ventricular Rate 68 BPM BEYOND NOW Atrial Rate 68 BPM BEYOND NOW P-R Interval 158 ms BEYOND NOW QRS Duration 70 ms BEYOND NOW QT 420 ms BEYOND NOW QTc 446 ms BEYOND NOW P [place] 80 degrees BEYOND NOW R [place] 58 degrees BEYOND NOW T [place] 61 degrees BEYOND NOW 12/25/2024 9:45 PM PARKING TECHNICIAN 12/26/2024 8:39 AM PARKING TECHNICIAN us Helena Smith DO EKG ORD Final Result Performing Organization Address [facility] Co de Phone Number BEYOND NOW [place], [place] from Last 3 Months Insurance [employer] [place] [place] BLUE MR PB ONLY MEDICARE PART B HB ONLY MEDICARE PART A HB ONLY [facility] HC MEDICARE PPS Advance Directives Documents on File Type Date Recorded Patient [employer] Department Manager Expl anation Healthcare Directive 12/31/2024 5:22 PM Healthcare Directive 02/28/2000 12:00 AM * Full Code (Latest Code Status on File) Date Activated Date Inactivated Comments 12/25/2024 9:33 PM 01/20/2025 2:01 PM Question Answer Comments Code Status Discussion: Unable to Assess Preferences, Provider to review later * Full Code Date Activated Date Inactivated Comments 11/30/2007 12:12 PM 12/01/2007 12:17 PM Care Teams Fuel Verification Technician Relationship Specialty Start Date End Date Ed Walsh MD [address] [place] [address] PCP - General Family Practice 12/29/24 Autumn Raphael AuD Audiology 08/15/[address] [address] 01/19/25
[2025-03-01 12:38] VITALS: BP 105/68; PULSE 92; RESP 14; TEMP 36.8; O2SAT 97
[2025-03-01 12:43] LABS: Glucose, Point-of-Care* 147 mg/dl (60-115)
--- NOTE | 2025-03-01 12:53 | CRLHL7_ITS ---
For Patients: As a result of the Century Cures Act, medical imaging exams and procedure reports are released immediately into your electronic medical record. You may view this report before your referring provider. If you have questions, please contact your health care provider. Indication: 79-year-old with dementia. More confused today. History of bleed. Technique: Routine head CT protocol without contrast. Comparison: January 26, 2025. Findings: Extra-axial spaces: No extra-axial fluid collections. Mild diffuse volume loss. Brain: Expected temporal evolution of previously noted right parieto-occipital hemorrhage with encephalomalacia at site of the bleed with adjacent local encephalopathy. Ex vacuo dilation of the right occipital horn. No acute intracranial hemorrhage mass lesion or acute cortical ischemia. Stable patchy white-matter changes are nonspecific but consistent with small vessel ischemic/degenerative changes. Ventricles: No hydrocephalus. As above. Midline: No shift. Normal structures. Posterior fossa: Normal. Orbits: Bilateral pseudophakia. Paranasal sinuses: Normal. Mastoid sinuses: Normal. Skull base and calvarium: Normal. Impression: 1. No acute intracranial abnormalities. 2. Expected temporal evolution of previously noted right parieto-occipital hemorrhage with developing encephalomalacia. 3. Additional stable chronic findings as above. Please note that all CT scans at this facility use dose modulation, iterative reconstruction, and/or weight-based dosing when appropriate to reduce radiation dose to as low as reasonably achievable. Dictated by Charles Sorensen MD @ 03/01/2025 1:30:37 PM (Electronically Signed)
--- NOTE | 2025-03-01 12:54 | ED.AMS ---
HPI - Altered Mental Status General Chief Complaint: Altered Mental Status Stated Complaint: stated possible Stroke Time Seen by Provider: 03/01/25 12:35 History of Present Illness HPI narrative: This 79-year-old female comes in with her . She has severe dementia and is mostly nonverbal. She comes in here today because at about 11:00 a.m. this morning, about 2 hours prior to arrival she did not recognize her or her children. He states that she normally does recognize immediate family. She does have a history of a brain bleed that was attributed to a trial of a medicine to treat her dementia. She arrives here with normal vital signs. She is moving all extremities and shows no unilateral symptoms. Related Data Home Medications ?Medication ?Instructions ?Recorded ?Confirmed cetirizine 10 mg tablet (Zyrtec) 10 mg PO DAILY PRN 03/04/24 02/24/25 lidocaine 4 % topical patch 1 patch topical BID PRN 01/21/25 02/24/25 Previous Rx's ?Medication ?Instructions ?Recorded mirtazapine 30 mg tablet 30 mg PO QHS #30 tabs 02/17/25 gabapentin 300 mg capsule 300 mg PO QHS #90 caps 02/24/25 lorazepam 0.5 mg tablet 0.25 - 0.5 mg (0.5 - 1 x 0.5 mg) 02/24/25 PO QHS PRN agitation #30 tabs olanzapine 5 mg tablet 5 mg PO BID #60 tabs 02/24/25 sertraline 100 mg tablet 50 mg (1/2 x 100 mg) PO QDAY #45 02/24/25 tabs Allergies Allergy/AdvReac Type Severity Reaction Status Date / Time pollen extracts Allergy Intermediate Verified 03/01/25 12:38 Review of Systems Status of ROS: Reports: unobtainable due to mental status Narrative: Unable to obtain due to severe dementia. 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 ?I61.1 - Nontraumatic intracerebral hemorrhage in hemisphere, cortical (ICD-10) Generalized anxiety disorder ?F41.1 - Generalized anxiety disorder (ICD-10) Major depression, recurrent ?F33.9 - Major depressive disorder, recurrent, unspecified (ICD-10) Allergic rhinitis ?J30.9 - Allergic rhinitis, unspecified (ICD-10) Sensorineural hearing loss (SNHL) of both ears ?H90.3 - Sensorineural hearing loss, bilateral (ICD-10) Fracture of rib ?S22.39XA - Fracture of one rib, unspecified side, initial encounter for closed fracture (ICD-10) Atopic dermatitis ?L20.9 - Atopic dermatitis, unspecified (ICD-10) Actinic keratoses ?L57.0 - Actinic keratosis (ICD-10) Recurrent cold sores ?B00.1 - Herpesviral vesicular dermatitis (ICD-10) Bilateral cataracts ?H26.9 - Unspecified cataract (ICD-10) Incontinence of feces (11/21/23) ?R15.9 - Full incontinence of feces (ICD-10) 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/22/19) ?Z85.89 - Personal history of malignant neoplasm of other organs and systems (ICD-10) History of Lyme disease (11/22/19) ?Z86.19 - Personal history of other infectious and parasitic diseases (ICD-10) History of COVID-19 (10/27/21) ?Z86.16 - Personal history of COVID-19 (ICD-10) Hearing aid worn (10/27/21) ?Z97.4 - Presence of external hearing-aid (ICD-10) Osteoporosis (11/22/19) ?M81.0 - Age-related osteoporosis without current pathological fracture (ICD-10) Osteoarthritis of left hip ?M16.12 - Unilateral primary osteoarthritis, left hip (ICD-10) 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 ?L03.90 - Cellulitis, unspecified (ICD-10) ?A28.0 - Pasteurellosis (ICD-10) ?W55.01XA - Bitten by cat, initial encounter (ICD-10) Osteoporosis (2012) ?M81.0 - Age-related osteoporosis without current pathological fracture (ICD-10) Insomnia ?G47.00 - Insomnia, unspecified (ICD-10) Surgical History History of total left hip replacement (03/04/24) ?Z96.642 - Presence of left artificial hip joint (ICD-10) H/O excision of ganglion cyst (04/03/97) ?Z98.890 - Other specified postprocedural states (ICD-10) History of laminectomy ?Z98.890 - Other specified postprocedural states (ICD-10) 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) ?Z96.641 - Presence of right artificial hip joint (ICD-10) Status post dilation and curettage (1989) ?Z98.890 - Other specified postprocedural states (ICD-10) History of microdiscectomy (2007) ?Z98.890 - Other specified postprocedural states (ICD-10) History of hysterectomy (1989) ?Z90.710 - Acquired absence of both cervix and uterus (ICD-10) Family History Father Depression Social History Narrative: Exercises regularly- 3-4/ week, 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 In the past 12 months, utilities in danger of being shut off: unable to answer In past 12 months, lack of transportation kept you from medical appts, meetings, work, or getting things needed for daily living: unable to answer In the past 12 mos, have been you worried that your food would run out before you had money to buy more?: unable to answer In the past 12 mos, the food you bought just didn't last and you didn't have money to buy more?: unable to answer Smoking Status: Unknown if ever smoked Do you use any of these nicotine containing products: None Second hand tobacco smoke exposure: No How often do you have a drink containing alcohol: never AUDIT-C Alcohol total score: 0 Non-prescribed substance use: denies use How often does anyone, including family, friends and others, physically hurt you: unable to answer How often does anyone, including family, friends and others, insult or talk down to you: unable to answer How often does anyone, including family, friends and others, threaten you with harm: unable to answer How often does anyone, including family, friends and others, scream or curse at you: unable to answer Exam Narrative: Exam Narrative: Constitutional: Well-developed, well-nourished, no acute distress. HEENT: Normocephalic, atraumatic. Neck: Normal range of motion. Nontender. Supple. Heart: Regular. No murmurs. Normal rate. Intact distal pulses. Lungs: Clear to auscultation. No chest discomfort. No wheezes, rhonchi, or rales. Abdomen: Normal bowel sounds. Nontender. No rebound tenderness. Genitalia: Deferred. Back: No midline tenderness. Normal range of motion. Extremities: Normal range of motion. No injury. Skin: Intact. No rash. Warm. No erythema or pallor. Neurologic: No altered sensation. No weakness. No facial asymmetry. Optical Assistant strength is equal bilaterally. She is unable to follow instructions due to her dementia. Psychiatric: No suicidality. No anxiety or depression. No insomnia. Nursing notes and vitals signs are reviewed. Const: Vital Signs, click to edit/add: Vital Signs - 24 hr 03/01/25 12:38 Temperature 98.3 F Pulse Rate [Pulse Oximeter] 92 Respiratory Rate 14 Blood Pressure [Ri ght Upper Arm] 105/68 Pulse Oximetry 97 Oxygen Delivery Me thod Room Air Course Vital Signs Vital signs: Initial Vital Signs Temperature 98.3 F 03/01/25 12:38 Temperature Source Temporal Artery Scan 03/01/25 12:38 Pulse Rate 92 03/01/25 12:38 Respiratory Rate 14 03/01/25 12:38 Blood Pressure 105/68 03/01/25 12:38 Blood Pressure Mean 80 03/01/25 12:38 Blood Pressure Position Sitting 03/01/25 12:38 Pulse Oximetry 97 03/01/25 12:38 Oxygen Delivery Method Room Air 03/01/25 12:38 Vital Signs Temperature 98.3 F 03/01/25 12:38 Pulse Rate 92 03/01/25 12:38 Respiratory Rate 14 03/01/25 12:38 Blood Pressure 105/68 03/01/25 12:38 Pulse Oximetry 97 03/01/25 12:38 Oxygen Delivery Method Room Air 03/01/25 12:38 Temperature 98.3 F 03/01/25 12:38 Pulse Rate 92 03/01/25 12:38 Respiratory Rate 14 03/01/25 12:38 Blood Pressure 105/68 03/01/25 12:38 Pulse Oximetry 97 03/01/25 12:38 Oxygen Delivery Method Room Air 03/01/25 12:38 MDM - Altered Mental Status MDM Narrative Medical decision making narrative: This 79-year-old had mild dementia until she took a medicine to treat this and some time afterward had a hemorrhagic stroke and since then has severe dementia. She does not follow commands so a complete neurologic assessment was not obtained such as [id number] and pronator drift. In nevertheless she is not showing any signs of stroke symptoms. She has normal vital signs and CT imaging and labs today returned with normal findings. Her is caring for her at home and states that it is going okay for now. She does get some help from outside also. She is okay to be discharged home to resume current plans. Lab Data Labs: Lab Results 03/01/25 03/01/25 Range/Units 12:35 13:25 WBC 8.86 (4.50-11.00) K/uL RBC 4.46 (4.00-5.20) m/uL Hgb 12.7 (12.0-16.0) gm/dL Hct 40.7 (33.0-51.0) % MCV 91 (80-100) fL MCH 29 (26-34) pg MCHC 31 L (32-36) gm/dL RDW Coeff of Mayelin 14.5 (11.5-15.5) % Plt Count 341 (140-440) K/uL Neut % (Auto) 77.6 H (42.0-72.0) % Lymph % (Auto) 15.8 L (20-44) % [place] % (Auto) 4.9 (0.0-11.0) % Eos % (Auto) 0.6 (0.0-7.0) % Baso % (Auto) 0.8 (0.0-3.0) % Neut # (Auto) 6.90 (1.7-7.0) K/uL Lymph # (Auto) 1.40 (0.90-2.90) K/uL [place] # (Auto) 0.40 (0.00-0.90) K/UL Eos # (Auto) 0.05 (0.00-0.50) K/uL Baso # (Auto) 0.07 (0.00-0.30) K/uL Abs Immat Gran (auto) 0.03 (0.00-0.30) K/uL Imm/Tot Granulo (auto) 0.3 % Sodium 140 (135-149) mmol/L Potassium 4.6 (3.6-5.1) mmol/L Chloride 98 (96-114) mmol/L Carbon Dioxide 32 (20-32) mmol/L Anion Gap 10 (7-15) mEq/L BUN 19 (7-30) mg/dL Creatinine 0.6 (0.5-1.5) mg/dL Estimated GFR 91 ml/min Glucose 106 (60-115) mg/dL Calcium 10.6 (8.4-10.6) mg/dL POC Glucose 147 H (60-115) mg/dl Imaging Data CT scan - head: Radiologist's impression: 1. No acute intracranial abnormalities. 2. Expected temporal evolution of previously noted right parieto-occipital hemorrhage with developing encephalomalacia. 3. Additional stable chronic findings as above. Discharge Plan Discharge Clinical Impression: Dementia Patient Disposition: Home w/ Parent or Adult Condition: Unchanged Additional Instructions: Continue current plans. Follow up with MD or return as needed. Prescriptions: No Action lidocaine 4 % adhesive patch,medicated 1 patch topical BID PRN olanzapine 5 mg tablet 5 mg PO BID Qty: 60 1RF gabapentin 300 mg capsule 300 mg PO QHS Qty: 90 1RF sertraline 100 mg tablet 50 mg PO QDAY Qty: 45 1RF lorazepam 0.5 mg tablet 0.25 - 0.5 mg PO QHS PRN (Reason: agitation) Qty: 30 0RF cetirizine [Zyrtec] 10 mg tablet 10 mg PO DAILY PRN mirtazapine 30 mg tablet 30 mg PO QHS Qty: 30 0RF Follow Up/Referrals: Ed Walsh MD [Primary Care Provider] - Stand Alone Forms: MyHealth Info Instructions
--- OUTSIDE RECORDS SUMMARY | 2025-03-01 13:04 | XMS_ITS | Clinical Summary ---
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
[2025-03-01 13:36] LABS: Basophils Absolute Auto 0.07 K/uL (0.00-0.30); Basophils Percent Auto 0.8 % (0.0-3.0); Eosinophils Absolute Auto 0.05 K/uL (0.00-0.50); Eosinophils Percent Auto 0.6 % (0.0-7.0); Hematocrit 40.7 % (33.0-51.0); Hemoglobin* 12.7 gm/dL (12.0-16.0); Immature Granulocytes Abs Auto 0.03 K/uL (0.00-0.30); Immature Granulocytes Pct Auto 0.3 %; Lymphocytes Percent Auto 15.8 % (20-44); Mean Corpuscular HGB Conc 31 gm/dL (32-36); Mean Corpuscular Hemoglobin 29 pg (26-34); Mean Corpuscular Volume 91 fL (80-100); Monocytes Percent Auto 4.9 % (0.0-11.0); Neutrophils Percent Auto 77.6 % (42.0-72.0); Platelet Count* 341 K/uL (140-440); RDW Coefficient of Variation % 14.5 % (11.5-15.5); Red Blood Count 4.46 m/uL (4.00-5.20); White Blood Count* 8.86 K/uL (4.50-11.00)
[2025-03-01 13:45] LABS: Slide Review Reflex No
[2025-03-01 13:47] LABS: Chloride* 98 mmol/L (96-114)
[2025-03-01 13:48] LABS: Potassium* 4.6 mmol/L (3.6-5.1); Sodium* 140 mmol/L (135-149)
[2025-03-01 13:51] LABS: Anion Gap 10 mEq/L (7-15); Blood Urea Nitrogen* 19 mg/dL (7-30); Calcium* 10.6 mg/dL (8.4-10.6); Carbon Dioxide* 32 mmol/L (20-32); Creatinine* 0.6 mg/dL (0.5-1.5); Estimated Glomerular Filt Rate 91 ml/min; Glucose* 106 mg/dL (60-115)
== END 2025-03-01 14:40 | disposition home or self-care (01) ==
PROVIDERS: Emergency Provider Emergency Medicine Emergency Medical Services; PCP Family Medicine
DX: R41.82 Altered mental status, unspecified (principal); F03.C3 Unspecified dementia, severe, with mood disturbance
CPT/HCPCS: 36415; 70450; 80048; 82947; 85025; 99283; 99284

== ENCOUNTER 2025-03-16 14:40 | Outpatient (CLI) | payer MEDICARE, BC, SELFPAY | END 2025-03-16 14:41 | disposition home or self-care (01) | LOC: AMB 03-17 12:46 | PROVIDERS: PCP Family Medicine; Visit Provider Family Medicine | DX: R41.82 Altered mental status, unspecified (principal); F03.90 Unspecified dementia, unspecified severity, without behavioral disturbance, psychotic disturbance, mood disturbance, and anxiety | CPT/HCPCS: A0425; A0429 ==

== ENCOUNTER 2025-03-16 15:21 | Emergency (ER) | payer MEDICARE, BC, SELFPAY ==
--- OUTSIDE RECORDS SUMMARY | 2025-03-16 15:23 | XMS_ITS | Clinical Summary ---
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
--- OUTSIDE RECORDS SUMMARY | 2025-03-16 15:23 | XMS_ITS | Data Portability ---
Author Organization [facility], [facility], [facility] Address [address] [address] [place] [address] Assessment No assessment recorded. Plan of Treatment [...] By Organization Details Last Modified Time 09/25/2023 [id number] application of wound dressing* [email or web address] Not available 09/25/2023 13:42:30 Reason for Referral None Reported. Problems Name Problem SNOMED Code Status Onset Date Resolution Date Notes Provider Name and Address Organization Details Recorded Time Tear of skin 306957798 Active 023 Luciana Stokes, DO [address], [place], [address], [facility] 09/25/2023 12:48:11 Problem Notes None recorded. Medical [...] % 97 % 156.21 cm 18.6 kg/m2 48104.2 4 g 120 mm[Hg] 59 mm[Hg] Jael Elizabeth RN [facility], [facility] 12:18:01 Social History Question Answer Notes LastModified by Organizat ion Details LastModified Time Tobacco Smoking Status Never Smoker Jael Elizabeth RN [facility] 09/25/2023 12:16:33 What Was The Date Of Your Most Recent Tobacco Screening? 09/25/2023 [email or web address] Information not available 09/25/2023 Has Tobacco Cessation Counseling Been Provided? No [email or web address] Information not available 09/25/2023 Do You Or Have You Ever Used Any Other Forms Of Tobacco Or Nicotine? No [email or web address] Information not available 09/25/2023 Sex: Unknown Functional Status None recorded. Mental Status None recorded. Family History Nothing Reported. Medical History No medical history recorded. Gynecological HistoryNo gynecological history recorded. Obstetrics History GPAL:G 0 P 0 0 0 0 Past Encounters Encounter ID Performer Location Encounter Start Date Encounter Closed Date Diagnosis/Indication Diagnosis SNOMED-CT Code Diagnosis ICD10 Code Diagnosis Note [id number] Luciana AlanDO karla [id number] [facility] [address] [place] [address] 09/25/2023 11:47:03 09/25/2023 13:06:12 Tear of skin 489872003 T14.8XXA Health Concerns Section Related Observation LastModified by Organization Detai ls LastModified Time None Recorded Concern Status LastModified by Organization Details LastModified Time None Recorded Advance Directives Directive None Recorded Payers Encounter Date Sequence Insurance Name Policy Number Policy Rashid Covered Member ID Rashid Member ID Guarantor Name 09/25/2023 2 [place] MEDICARE COST [id number] Kylie Tabor [id number] Kylie Tabor Notes Date Note Type Note [...] Luciana DO Kike [address] [facility] [address], [place], [address], [place] [facility], [facility] 09/25/2023 12:49:36 OBGyn Episode No OBEpisode recorded.
--- OUTSIDE RECORDS SUMMARY | 2025-03-16 15:23 | XMS_ITS | Data Portability ---
Author Organization [facility], [facility] Address [address] [place] [address] Care Team Providers Care Reeling Machine Setup Operator Name Role Phone SALONI DURANT Primary Care Provider Assessment No assessment recorded. Plan of Treatment Reminders Order Date Submit Date Provider Last Modified By Organization Details Last Modified Time Details Appointments None recorded. Lab None recorded. Referral None recorded. Procedures None recorded. Surgeries total hip arthroplas ty, anterior approach (SURG) 2023 024 [email or web address] Not available 4 12:49:37 Imaging XR, hip + pelvis, unilateral , 2 or 3 view 2023 024 [email or web address] In-Office Order, Internal Use Only DO Not Attach Compendium DO Not Attach Compendium, Do Not Delete/merge, [id number] 17:23:49 Medication Orders None recorded. Patient TargetsNo targets recorded. Patient InstructionsNo instructions recorded. Reason for Referral None Reported. Results Created Date Observation Date Name Description Value Unit Range Abnormal Flag Note LastModifiedBy Organization Detail LastModifiedTime 12/25/19 24 XR, hip + pelvi s, unila teral , 2 or 3 view No observ ation record ed. [email or web address] In-Office Order Internal Use Only DO Not Attach Compendium DO Not Attach Compendium, Do Not Delete/merge, [id number] 12/28/2023 17:23:48 Result Notes None recorded. Procedures Surgical History Date Name Laterality Status Provider Name and Address Organization Details Recorded Time Joint Replacement completed Kristin Aguilar [facility] 12/27/2023 16:39:40 Back Surgery completed Kristin Aguilar [facility] 12/27/2023 16:39:40 Other Surgeries completed Kristin Velasco [facility] 12/27/2023 16:39:40 Imaging Results Imaging Date Name Status LastModified by Organiz ation Details LastModified Time 12/25/2023 XR, hip + pelvis, unilateral , 2 or 3 view completed [email or web address] In-Office Order Internal Use Only DO Not Attach Compendium DO Not Attach Compendium, Do Not Delete/merge, [id number] 12/28/2023 17:23:48 Procedure Notes None recorded. Medical Equipment None Reported. Allergies No known drug allergies Vitals Date Recorded Body height Body mass index (BMI) Body weight Heart rate Systolic blood pressure Diastolic blood pressure Provider Name and Address Organization Details Last Updated DateTime 154.94 cm 18.9 kg/m2 02172.2 4 g 62 /min 122 mm[Hg] 77 mm[Hg] Wendy Wilson [facility] 16:43:21 Social History Question Answer Notes LastModified by Organizat ion Details LastModified Time Tobacco Smoking Status Never Smoker Wendy Wilson [facility] 12/27/2023 16:43:44 Do You Have An Advance Directive? Yes Per Patient Information not available 12/27/2023 If Pulse Oximetry Was Done: Is The Patient's Sp02 Less Than 93% On Room Air? No [email or web address] Information not available 12/27/2023 What Was The Date Of Your Most Recent Tobacco Screening? 12/27/2023 Information not available 12/27/2023 What Is Your Relationship Status? Information not available 12/27/2023 Do You Or [...] SNOMED-CT Code Diagnosis ICD10 Code Diagnosis Note [id number] José Francis MD [facility] [address] [address] 12/27/2023 16:22:23 12/27/2023 17:07:25 Pain of left hip joint [id number] 31486 M25.552 arthritis of the left hip ; [...] Member ID Guarantor Name 12/27/2023 2 [place] CO[place] Joon Tabor [id number] Kylie Tabor Notes Date Note Type Note [...] little Work Related:no Working:no José Francis MD [address], [place], [address], [facility] 12/28/2023 22:35:50 OBGyn Episode No OBEpisode recorded.
--- OUTSIDE RECORDS SUMMARY | 2025-03-16 15:24 | XMS_ITS | Clinical Summary ---
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 Active hospital bedIndications:En cephalopathy acute,Intracrania l hemorrhage (HC) Hospital bed with mattress and full rails. Semi-electric bed. Length of need 6 months. Bed dredge hand:no 1 Each 01/15/20 Active commodeIndication s:Encephalopathy acute,Nontraumati c cortical hemorrhage of right cerebral hemisphere (HC) As directed. Commode. For home use. 1 Each 01/15/20 25 Active wheelchairIndicat ions:Intracranial hemorrhage (HC) Wheelchair: Standard with leg rests: (Swing away Length of need: 12 months 1 Each 01/15/20 Active acetaminophen (TYLENOL) 325 mg tabletIndications :Back pain, unspecified back location, unspecified back pain laterality, unspecified chronicity Take 2 Tablets (650 mg) by mouth every 4 hours if needed for Pain or Temp > (Specify) (Temp >100.4 F (38 C)). Max acetaminophen dose: 4000mg in 24 hrs. 100 Tablet 5 5:12 PM UNIT ASSISTANT 01/17/20 25 Active lidocaine 4 % topical patchIndications: Back pain, unspecified back location, unspecified back pain laterality, unspecified chronicity Apply to intact skin to cover most painful area for max 12hr per 24hr period. 30 Patch 01/17/20 25 Active OLANzapine 5 mg tablet Take 5 mg by mouth two times daily. 03/07/20 25 Active mirtazapine 30 mg tablet Take 30 mg by mouth at bedtime. 03/07/20 25 Active gabapentin 300 mg capsule Take 300 mg by mouth at bedtime. 03/07/20 25 Active LORazepam 0.5 mg tab Take 0.5 mg by mouth at bedtime if needed for Agitation. Take 1/2 tab (0.25mg) or 1 tab (0.5mg) PO PRN QHS for agitation 03/07/20 25 Active sertraline 100 mg tabletIndications :anxiety with depression Take 50 mg by mouth once daily. Indications: anxiousness associated with depression 03/07/20 25 Active fluorouracil (EFUDEX) 5 % cream APPLY A SMALL AMOUNT TO AFFECTED AREA TWICE A DAY TO HANDS AND NOSE FOR UP TO 2 WEEKS 12/10/19 25 Discontin ued(*Med complete/ Regimen complete/ Level of care change) fish oil-omega-3 fatty acids (Fish OiL) 1,200-360 mg cap Take 1 Capsule by mouth once daily. One capsule is 1200 mg-360 mg 025 Discontin ued(*Dorota ent states no longer taking) multivitamins-min erals-lutein (Multivitamin 50 Plus) tab tablet Take 1 Tablet by mouth once daily. 025 Discontin ued(*Dorota ent states no longer taking) melatonin 3 mg tablet Take 3 mg by mouth at bedtime. 025 Discontin ued(*Dorota ent states no longer taking) gabapentin (NEURONTIN) 100 mg capsuleIndication s:Back pain, unspecified back location, unspecified back pain laterality, unspecified chronicity [The details of the medication are not available because there are pending changes by a home health clinician.] 30 Capsule 5 5:12 PM UNIT ASSISTANT 01/17/20 25 025 Discontin ued(*Dorota ent states no longer taking) OLANzapine (ZYPREXA ZYDIS) 5 mg disintegrating tabletIndications :Encephalopathy acute,Intracrania l hemorrhage (HC) [The details of the medication are not available because there are pending changes by a home health clinician.] 30 Tablet 5 5:12 PM UNIT ASSISTANT 01/17/20 025 Discontin ued(*Medi cation adjustmen t) propranoloL (INDERAL) 20 mg tabletIndications :Encephalopathy acute,Hypertensio n [The details of the medication are not available because there are pending changes by a home health clinician.] 60 Tablet 5 5:12 PM UNIT ASSISTANT 01/17/20 025 Discontin ued(*Med complete/ Regimen complete/ Level of care change) amLODIPine (NORVASC) 2.5 mg tabletIndications :Intracranial hemorrhage (HC),Hypertension [The details of the medication are not available because there are pending changes by a home health clinician.] 60 Tablet 5 1:05 PM UNIT ASSISTANT 01/20/20 025 Additional Information Patient not taking.Reason: See Comment (discontinued per hospital med list), Informant: Patient's Med List, Reported on 02/03/2025 mirtazapine (REMERON) 15 mg tabletIndications :Encephalopathy acute,Intracrania l hemorrhage (HC) Take 1 Tablet (15 mg) by mouth at bedtime. 30 Tablet 5 1:05 PM UNIT ASSISTANT 01/20/20 025 sodium chloride 1,000 mg soluble tabletIndications :Hyponatremia Take 1 Tablet (1,000 mg) by mouth two times daily. 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 01/04/2025 Fever 01/01/2025 Stupor 01/01/2025 Cytotoxic cerebral edema 12/26/2024 Alzheimer's dementia 12/26/2024 Intracranial hemorrhage 12/26/2024 ICH (intracerebral hemorrhage) 12/25/2024 Depression 12/25/2024 Dyslipidemia 12/05/2024 Sensorineural hearing loss, bilateral 08/14/2012 Disorder of bone and cartilage, unspecified 06/2007 Encounters Date Type Department Care Team Description 03/13/2025 2:00 PM CDT Home Care Visit [facility] [address] [place] [phone] Lisha Bautista RN SN - HOME VISIT 03/13/2025 10:30 AM CDT Home Care Visit [facility] [address] [place] [phone] Toya Ley DIGITAL ASSET MANAGER - HOME VISIT 03/13/2025 Home Care Visit [facility] [address] [place] [phone] Gracie Fernández, WOOD HEEL FLAP INSERTER WOOD HEEL FLAP INSERTER - DISCIPLINE DISCHARGE 03/11/2025 10:00 AM CDT Home Care Visit [facility] [address] [place] [phone] Sury Silva, OT OT - DISCIPLINE DISCHARGE 03/11/2025 9:00 AM CDT Home Care Visit [facility] [address] [place] [phone] David Fishman, PT PT - HOME VISIT 03/10/2025 Home Care Visit [facility] [address] [place] [phone] Harini Ramos LISW DRIP BOX TENDER - CASE COMMUNICATION 03/07/2025 12:30 PM CDT Home Care Visit [facility] [address] [place] [phone] Lisha Bautista RN SN - HOME VISIT 03/07/2025 Home Care Visit [facility] [address] [place] [phone] Harini Ramos LISW CARE COORDINATION 03/07/2025 Orders Only [facility] [address] [place] [address] Lisha Bautista RN <No scans attached> 03/07/2025 Home Care Visit [facility] [address] [place] [phone] Harini Ramos LISW DRIP BOX TENDER - CASE COMMUNICATION 03/06/2025 2:00 PM CDT Home Care Visit [facility] [address] [place] [phone] Sury Silva, OT OT - REASSESSMENT 03/06/2025 11:45 AM CDT Home Care Visit [facility] [address] [place] [phone] Toya Ley DIGITAL ASSET MANAGER - HOME VISIT 03/06/2025 9:30 AM CDT Home Care Visit [facility] [address] [place] [phone] David Fishman, PT PT - REASSESSMENT 03/05/2025 10:00 AM CDT Home Care Visit [facility] [address] [place] [phone] Harini Ramos LISW DRIP BOX TENDER - HOME VISIT 03/05/2025 Home Care Visit [facility] [address] [place] [address] [phone] David Fishman, PT CARE COORDINATION 03/05/2025 Home Care Visit [facility] [address] [place] [phone] Kathy Jaffe, LOVE CARE COORDINATION 03/04/2025 9:45 AM CDT Home Care Visit [facility] [address] [place] [address] [phone] David Fishman, PT PT - HOME VISIT 03/04/2025 Home Care Visit [facility] [address] [place] [address] [phone] Gracie Fernández, WOOD HEEL FLAP INSERTER WOOD HEEL FLAP INSERTER - HOME VISIT 02/27/2025 11:45 AM CDT Home Care Visit [facility] [address] [place] [phone] Toya Ley DIGITAL ASSET MANAGER - HOME VISIT 02/27/2025 10:30 AM CDT Home Care Visit [facility] [address] [place] [phone] Lisha Bautista, DANIEL SN - HOME VISIT 02/27/2025 Home Care Visit [facility] [address] [place] [phone] Harini Ramos LISW CARE COORDINATION 02/26/2025 10:30 AM CDT Home Care Visit [facility] [address] [place] [phone] Kathy Jaffe COTA OT - HOME VISIT 02/25/2025 9:00 AM CDT Home Care Visit [facility] [address] [place] [phone] David Fishman, PT PT - HOME VISIT 02/24/2025 12:00 PM CDT Home Care Visit [facility] [address] [place] [phone] Gracie Fernández, WOOD HEEL FLAP INSERTER WOOD HEEL FLAP INSERTER - HOME VISIT 02/21/2025 10:00 AM CDT Home Care Visit [facility] [address] [place] [phone] Lisha Bautista, RN SN - HOME VISIT 02/21/2025 Home Care Visit [facility] [address] [place] [phone] Harini Ramos LISW DRIP BOX TENDER - CASE COMMUNICATION 02/20/2025 3:00 PM CDT Home Care Visit [facility] [address] [place] [phone] David Fishman, PT PT - HOME VISIT 02/20/2025 11:45 AM CDT Home Care Visit [facility] [address] [place] [phone] Toya Ley DIGITAL ASSET MANAGER - HOME VISIT 02/20/2025 10:00 AM CDT Home Care Visit [facility] [address] [place] [phone] Gracie Fernández, WOOD HEEL FLAP INSERTER WOOD HEEL FLAP INSERTER - INITIAL ASSESSMENT 02/19/2025 10:30 AM CDT Home Care Visit [facility] [address] [place] [phone] Kathy Jaffe LOVE OT - HOME VISIT 02/18/2025 10:45 AM CDT Home Care Visit [facility] [address] [place] [phone] David Fishman, PT PT - HOME VISIT 02/14/2025 2:00 PM CDT Home Care Visit [facility] [address] [place] [phone] David Fishman, PT PT - HOME VISIT 02/13/2025 1:00 PM CDT Home Care Visit [facility] [address] [place] [phone] Christelle Brock, PEOPLESOFT DEVELOPER PEOPLESOFT DEVELOPER - HOME VISIT 02/13/2025 11:30 AM CDT Home Care Visit [facility] [address] [place] [address] [phone] Toya Ley DIGITAL ASSET MANAGER - HOME VISIT 02/11/2025 9:00 AM CDT Home Care Visit [facility] [address] [place] [phone] Kathy Jaffe LOVE OT - HOME VISIT 02/11/2025 Home Care Visit [facility] [address] [place] [phone] Lisha Bautista, DANIEL CARE COORDINATION 02/11/2025 Telephone [facility] [address] [phone] Inge Barksdale NP Hospital F/U 02/10/2025 3:00 PM CDT Home Care Visit [facility] [address] [place] [phone] Harini Ramos LISW DRIP BOX TENDER - INITIAL ASSESSMENT 02/10/2025 10:45 AM CDT Home Care Visit [facility] [address] [place] [phone] David Fishman, PT PT - HOME VISIT 02/07/2025 11:30 AM CDT Home Care Visit [facility] [address] [place] [phone] Silvana Victor, OT OT - INITIAL ASSESSMENT 02/07/2025 9:00 AM CDT Home Care Visit [facility] [address] [place] [phone] David Fishman, PT PT - HOME VISIT 02/07/2025 Home Care Visit [facility] [address] [place] [phone] David Fishman, PT CARE COORDINATION 02/06/2025 11:45 AM CDT Home Care Visit [facility] [address] [place] [phone] Toya Ley DIGITAL ASSET MANAGER - HOME VISIT 02/05/2025 10:30 AM CDT Home Care Visit [facility] [address] [place] [phone] David Fishman, PT PT - INITIAL ASSESSMENT 02/04/2025 Nurse Triage [facility] [address] [place] [address] Ed Walsh MD Low Blood Pressure; Medication Management 02/04/2025 Home Care Visit [facility] [address] [place] [phone] Harini Ramos LISW DRIP BOX TENDER - CASE COMMUNICATION 02/04/2025 Home Care Visit [facility] [address] [place] [phone] Lily Kamara, PT CARE COORDINATION 02/03/2025 11:00 AM CDT Home Care Visit [facility] [address] [place] [address], [place] [phone] Lisha Bautista, DANIEL MCDONNELL - [place]AS[place] RESUMPTION OF CARE 01/31/2025 Home Care Visit [facility] [address] [place] [address], [place] [phone] Lisha Bautista, DANIEL CARE COORDINATION 01/28/2025 Home Care Visit [facility] [address] [place] [phone] Lisha Bautista, DANIEL MCDONNELL - [place]AS[place] TRANSFER 01/28/2025 Home Care Visit [facility] [address] [place] [address], [place] [phone] Oxana Esqueda RN CARE COORDINATION 01/27/2025 Home Care Visit [facility] [address] [place] [phone] Lisha Bautista, LYE BOILER NOTE 01/24/2025 1:30 PM UNIT ASSISTANT Home Care Visit [facility] [address] [place] [address], [place] [phone] David Fishman, PT PT - INITIAL ASSESSMENT 01/23/2025 11:15 AM UNIT ASSISTANT Home Care Visit [facility] [address] [place] [phone] Sury Silva, OT OT - INITIAL ASSESSMENT 01/23/2025 Home Care Visit [place] [address] [place] [phone] Oxana Esqueda RN CARE COORDINATION 01/23/2025 Nurse Triage [facility] [address] [place] [address] [facility] 01/21/2025 7:00 AM UNIT ASSISTANT Home Care Visit [facility] [address] [place] [phone] Shereen Alvarez, DANIEL MCDONNELL - OASIS START OF CARE 01/21/2025 Telephone [facility] [address] [place] [phone] Shereen Alvarez, pipe finishing supervisor (Need ongoing orders for HH) 01/21/2025 Plan of Care Documentation [facility] [address] [facility] [place] [phone] 01/19/2025 Travel 12/25/2024 9:26 PM UNIT ASSISTANT - 01/20/2025 12:00 PM UNIT ASSISTANT Hospital Encounter [facility] [address] [place] [address] Luis, Helena Qureshi, DO Holm, MD Mariah Bains, MD Scott Landeros, MD Yoav Salamanca, MD Abdelrahman Pérez, Ed Hilliard MD [facility], [facility] Hospitalists Of Encephalopathy acute [...] on file Legal Sex Female 6:04 AM UNIT ASSISTANT Gender Identity Not on file Sexual Orientation Not on file Obstetrics History Last Filed Vital Signs Vital Sign Reading Time Taken Comments Blood Pressure 128/74 03/13/2025 2:03 PM CDT Pulse 76 03/13/2025 2:03 PM CDT Temperature 36.2 C (97.2 F) 03/13/2025 2:03 PM CDT Respiratory Rate 17 03/13/2025 9:36 AM CDT Oxygen Saturation 98% 03/11/2025 10:54 AM CDT Inhaled Oxygen Concentration - - Weight 46.3 kg (102 lb) 02/03/2025 11:21 AM CDT Height 157.5 cm (5' 2) 02/03/2025 11:21 AM CDT Body Mass Index 18.66 02/03/2025 11:21 AM CDT Plan of Treatment Upcoming Encounters Date Type Department Care Team (Late st Contact Info) Description 03/18/2025 9:45 AM CDT Home Care Visit [facility] [address] [place] [phone] David Fishman, PT [address] [place] [address] 03/20/2025 10:30 AM CDT Home Care Visit [facility] [address] [place] [phone] Toya Ley [address] [place] [address] 03/20/2025 12:00 PM CDT Appointment [facility] [address] [place] [phone] Lisha Bautista, RN Health Maintenance Due Date [...] Comments SODIUM Early AM 01/19/2025 6:37 AM UNIT ASSISTANT HEMOGLOBIN Early AM 01/19/2025 6:37 AM UNIT ASSISTANT XR CHEST 1 VIEW PORTABLE Routine 01/16/2025 11:15 AM UNIT ASSISTANT SODIUM Early AM 01/16/2025 10:52 AM UNIT ASSISTANT ALT (SGPT) Early AM 01/13/2025 10:58 AM UNIT ASSISTANT AST (SGOT) Early AM 01/13/2025 10:58 AM UNIT ASSISTANT ALK PHOSPHATASE Early AM 01/13/2025 10:58 AM UNIT ASSISTANT AMMONIA Early AM 01/13/2025 10:58 AM UNIT ASSISTANT CREATININE Early AM 01/13/2025 10:58 AM UNIT ASSISTANT POTASSIUM Early AM 01/13/2025 10:58 AM UNIT ASSISTANT SODIUM Early AM 01/13/2025 10:58 AM UNIT ASSISTANT CBC W PLT NO DIFF Early AM 01/13/2025 10: 58 AM UNIT ASSISTANT SODIUM Early AM 01/11/2025 6:45 AM UNIT ASSISTANT HEPATIC FUNCTION PANEL EDILIA 6:46 AM UNIT ASSISTANT SODIUM Early AM 01/10/2025 6:46 AM UNIT ASSISTANT PHOSPHORUS Early AM 01/10/2025 6:46 AM UNIT ASSISTANT MAGNESIUM Early AM 01/10/2025 6:46 AM UNIT ASSISTANT POTASSIUM Early AM 01/10/2025 6:46 AM UNIT ASSISTANT SODIUM Today 01/09/2025 4:12 PM UNIT ASSISTANT PHOSPHORUS EDILIA 01/09/2025 6:17 AM UNIT ASSISTANT POTASSIUM EDILIA 01/09/2025 6:17 AM UNIT ASSISTANT MAGNESIUM EDILIA 01/09/2025 6:17 AM UNIT ASSISTANT CBC W PLT NO DIFF Early AM 01/09/2025 6:1 7 AM UNIT ASSISTANT BASIC METABOLIC PANEL Early AM 01/09/2025 6:17 AM UNIT ASSISTANT SODIUM EDILIA 01/08/2025 1:24 PM UNIT ASSISTANT POTASSIUM Timed 01/08/2025 1:24 PM UNIT ASSISTANT POTASSIUM Today 01/08/2025 8:38 AM UNIT ASSISTANT SODIUM Timed 01/08/2025 8:38 AM UNIT ASSISTANT CBC W PLT NO DIFF Early AM 01/08/2025 6:2 4 AM UNIT ASSISTANT BASIC METABOLIC PANEL Early AM 01/08/2025 6:24 AM UNIT ASSISTANT SODIUM Timed 01/08/2025 2:44 AM UNIT ASSISTANT SODIUM Timed 01/07/2025 9:37 PM UNIT ASSISTANT SODIUM Timed 01/07/2025 2:23 PM UNIT ASSISTANT SODIUM Timed 01/07/2025 8:31 AM UNIT ASSISTANT LD,TOTAL Early AM 01/07/2025 6:31 AM UNIT ASSISTANT HEMOGLOBIN Early AM 01/07/2025 6:31 AM UNIT ASSISTANT SODIUM Timed 01/07/2025 3:35 AM UNIT ASSISTANT SODIUM Timed 01/06/2025 9:24 PM UNIT ASSISTANT HAPTOGLOBIN EDILIA 01/06/2025 4:02 PM UNIT ASSISTANT SODIUM Timed 01/06/2025 4:02 PM UNIT ASSISTANT SODIUM Timed 01/06/2025 9:50 AM UNIT ASSISTANT RETICULOCYTES EDILIA 01/06/2025 4:16 AM UNIT ASSISTANT WHITE BLOOD COUNT Early AM 01/06/2025 4:1 6 AM UNIT ASSISTANT PLATELET COUNT Early AM 01/06/2025 4:16 AM UNIT ASSISTANT HEMOGLOBIN Early AM 01/06/2025 4:16 AM UNIT ASSISTANT SODIUM Timed 01/06/2025 4:16 AM UNIT ASSISTANT SODIUM Timed 01/05/2025 9:08 PM UNIT ASSISTANT SODIUM Timed 01/05/2025 3:18 PM UNIT ASSISTANT US VENOUS LOWER EXTREMITY BILATERAL Routine 01/05/2025 10:07 AM UNIT ASSISTANT CREATININE EDILIA 01/05/2025 9:30 AM UNIT ASSISTANT ELECTROLYTE PANEL EDILIA 01/05/2025 9:3 0 AM UNIT ASSISTANT PROCALCITONIN Today 01/05/2025 9:30 AM UNIT ASSISTANT WHITE BLOOD COUNT Today 01/05/2025 9:3 0 AM UNIT ASSISTANT SODIUM Timed 01/05/2025 9:30 AM UNIT ASSISTANT XR CHEST 1 VIEW PORTABLE Routine 01/05/2025 9:25 AM UNIT ASSISTANT GLUCOSE METER Timed 01/05/2025 7:55 AM UNIT ASSISTANT SODIUM Timed 01/05/2025 3:04 AM UNIT ASSISTANT GLUCOSE METER Timed 01/05/2025 1:50 AM UNIT ASSISTANT SODIUM Timed 01/04/2025 9:11 PM UNIT ASSISTANT GLUCOSE METER Timed 01/04/2025 6:16 PM UNIT ASSISTANT GLUCOSE METER Timed 01/04/2025 3:22 PM UNIT ASSISTANT SODIUM Timed 01/04/2025 3:05 PM UNIT ASSISTANT OSMOLALITY,URINE Today 01/04/2025 11:0 2 AM UNIT ASSISTANT OSMOLALITY EDILIA 01/04/2025 11:02 AM UNIT ASSISTANT HEPATIC FUNCTION PANEL EDILIA 11:02 AM UNIT ASSISTANT SODIUM,RANDOM URINE Today 01/04/2025 1 1:02 AM UNIT ASSISTANT SODIUM Timed 01/04/2025 11:02 AM UNIT ASSISTANT SODIUM Timed 01/04/2025 5:09 AM UNIT ASSISTANT GLUCOSE METER Timed 01/04/2025 4:53 AM UNIT ASSISTANT SODIUM Timed 01/03/2025 11:21 PM UNIT ASSISTANT SODIUM Timed 01/03/2025 6:27 PM UNIT ASSISTANT GLUCOSE METER Timed 01/03/2025 5:[address] HEAD BRAIN WO EDILIA 01/03/2025 4:02 PM UNIT ASSISTANT SODIUM Timed 01/03/2025 12:54 PM UNIT ASSISTANT GLUCOSE METER Timed 01/03/2025 12:32 PM UNIT ASSISTANT ALK PHOSPHATASE Early AM 01/03/2025 5:49 AM UNIT ASSISTANT AST (SGOT) Early AM 01/03/2025 5:49 AM UNIT ASSISTANT ALT (SGPT) Early AM 01/03/2025 5:49 AM UNIT ASSISTANT HEMOGLOBIN Early AM 01/03/2025 5:49 AM UNIT ASSISTANT SODIUM Timed 01/03/2025 5:49 AM UNIT ASSISTANT GLUCOSE METER Timed 01/03/2025 4:53 AM UNIT ASSISTANT SODIUM Timed 01/02/2025 11:18 PM UNIT ASSISTANT GLUCOSE METER Timed 01/02/2025 10:32 PM UNIT ASSISTANT SODIUM Timed 01/02/2025 5:54 PM UNIT ASSISTANT SODIUM Timed 01/02/2025 11:27 AM UNIT ASSISTANT PLATELET COUNT Early AM 01/02/2025 7:44 AM UNIT ASSISTANT WHITE BLOOD COUNT Early AM 01/02/2025 7:4 4 AM UNIT ASSISTANT HEMOGLOBIN Early AM 01/02/2025 7:44 AM UNIT ASSISTANT BASIC METABOLIC PANEL Early AM 01/02/2025 6:35 AM UNIT ASSISTANT SODIUM Timed 01/02/2025 6:35 AM UNIT ASSISTANT GLUCOSE METER Timed 01/02/2025 3:59 AM UNIT ASSISTANT SODIUM Timed 01/02/2025 1:00 AM UNIT ASSISTANT GLUCOSE METER Timed 01/01/2025 9:27 PM UNIT ASSISTANT GLUCOSE METER Timed 01/01/2025 6:34 PM UNIT ASSISTANT INSERT PICC LINE Routine 01/01/2025 5:41 PM UNIT ASSISTANT SODIUM Timed 01/01/2025 4:37 PM UNIT ASSISTANT CORTISOL TOTAL Timed 01/01/2025 4:37 PM UNIT ASSISTANT GLUCOSE METER Timed 01/01/2025 12:[address] HEAD BRAIN WO STAT 01/01/2025 11:5 2 AM UNIT ASSISTANT TSH EDILIA 01/01/2025 11:17 AM UNIT ASSISTANT SODIUM Timed 01/01/2025 11:17 AM UNIT ASSISTANT OSMOLALITY,URINE Today 01/01/2025 9:39 AM UNIT ASSISTANT SODIUM,RANDOM URINE Today 01/01/2025 9 :39 AM UNIT ASSISTANT BASIC METABOLIC PANEL Early AM 01/01/2025 7:13 AM UNIT ASSISTANT WHITE BLOOD COUNT Early AM 01/01/2025 7:1 3 AM UNIT ASSISTANT GLUCOSE METER Timed 01/01/2025 6:06 AM UNIT ASSISTANT GLUCOSE METER Timed 12/31/2024 10:[address] CHEST ABDOMEN PELVIS W Routine 12/31/2024 4:48 PM UNIT ASSISTANT GLUCOSE METER Timed 12/31/2024 2:17 PM UNIT ASSISTANT BLOOD CULTURE Today 12/31/2024 12:29 PM UNIT ASSISTANT BLOOD CULTURE Today 12/31/2024 12:29 PM UNIT ASSISTANT GLUCOSE METER Timed 12/31/2024 9:47 AM UNIT ASSISTANT PHOSPHORUS Early AM 12/31/2024 6:32 AM UNIT ASSISTANT POTASSIUM Early AM 12/31/2024 6:32 AM UNIT ASSISTANT WHITE BLOOD COUNT Early AM 12/31/2024 6:3 2 AM UNIT ASSISTANT GLUCOSE METER Timed 12/31/2024 4:24 AM UNIT ASSISTANT GLUCOSE METER Timed 12/30/2024 9:13 PM UNIT ASSISTANT GLUCOSE METER Timed 12/30/2024 5:08 PM UNIT ASSISTANT COVID/FLU/RSV PANEL Today 12/30/2024 1 0:17 AM UNIT ASSISTANT BASIC METABOLIC PANEL Early AM 12/30/2024 8:51 AM UNIT ASSISTANT CBC W PLT NO DIFF Early AM 12/30/2024 8:5 1 AM UNIT ASSISTANT PHOSPHORUS Early AM 12/30/2024 8:51 AM UNIT ASSISTANT MAGNESIUM Early AM 12/30/2024 8:51 AM UNIT ASSISTANT GLUCOSE METER Timed 12/30/2024 4:04 AM UNIT ASSISTANT GLUCOSE METER Timed 12/29/2024 9:15 PM UNIT ASSISTANT GLUCOSE METER Timed 12/29/2024 3:24 PM UNIT ASSISTANT URINALYSIS MICROSCOPIC Timed 2:21 PM UNIT ASSISTANT UA W/ SEDIMENT EXAM REFLEXED PER CRITERIA Today 12/29/2024 2:21 PM UNIT ASSISTANT XR CHEST 1 VIEW PORTABLE Routine 12/29/2024 2:14 PM UNIT ASSISTANT PHOSPHORUS Today 12/29/2024 11:28 AM UNIT ASSISTANT GLUCOSE METER Timed 12/29/2024 9:30 AM UNIT ASSISTANT POTASSIUM Early AM 12/29/2024 6:43 AM UNIT ASSISTANT MAGNESIUM Early AM 12/29/2024 6:[address] HEAD BRAIN WO Routine 12/29/2024 4:23 AM UNIT ASSISTANT GLUCOSE METER Timed 12/29/2024 2:55 AM UNIT ASSISTANT XR ABDOMEN 1 VIEW PORTABLE STAT 12/28/2024 6:33 PM UNIT ASSISTANT GLUCOSE METER Timed 12/28/2024 10:47 AM UNIT ASSISTANT PHOSPHORUS Timed 12/28/2024 9:40 AM UNIT ASSISTANT SCAN-CARDIAC STRIP 12/28/2024 7: 30 AM UNIT ASSISTANT GLUCOSE METER Timed 12/28/2024 5:13 AM UNIT ASSISTANT CBC W PLT NO DIFF Early AM 12/28/2024 4:2 0 AM UNIT ASSISTANT BASIC METABOLIC PANEL Early AM 12/28/2024 4:20 AM UNIT ASSISTANT PHOSPHORUS Early AM 12/28/2024 4:20 AM UNIT ASSISTANT MAGNESIUM Early AM 12/28/2024 4:20 AM UNIT ASSISTANT SCAN-RADIOLOGY REPORT 12/28/2024 12:00 AM UNIT ASSISTANT GLUCOSE METER Timed 12/27/2024 9:12 PM UNIT ASSISTANT GLUCOSE METER Timed 12/27/2024 2:31 PM UNIT ASSISTANT SODIUM Timed 12/27/2024 1:51 PM UNIT ASSISTANT GLUCOSE METER Timed 12/27/2024 9:06 AM UNIT ASSISTANT CBC W PLT NO DIFF Early AM 12/27/2024 4:5 9 AM UNIT ASSISTANT BASIC METABOLIC PANEL Early AM 12/27/2024 4:59 AM UNIT ASSISTANT PHOSPHORUS Early AM 12/27/2024 4:59 AM UNIT ASSISTANT MAGNESIUM Early AM 12/27/2024 4:59 AM UNIT ASSISTANT GLUCOSE METER Timed 12/27/2024 4:21 AM UNIT ASSISTANT GLUCOSE METER Timed 12/26/2024 10:07 PM UNIT ASSISTANT MR HEAD BRAIN WO Routine 12/26/2024 4:45 PM UNIT ASSISTANT GLUCOSE METER Timed 12/26/2024 2:52 PM UNIT ASSISTANT SCAN CORRESP-IMAGING 12/26/2024 10:44 AM UNIT ASSISTANT GLUCOSE METER Timed 12/26/2024 8:27 AM UNIT ASSISTANT UA W/ SEDIMENT EXAM REFLEXED PER CRITERIA Today 12/26/2024 6:[address] HEAD BRAIN WO Routine 12/26/2024 6:12 AM UNIT ASSISTANT WHITE BLOOD COUNT Early AM 12/26/2024 4:5 1 AM UNIT ASSISTANT PLATELET COUNT Early AM 12/26/2024 4:51 AM UNIT ASSISTANT HEMOGLOBIN Early AM 12/26/2024 4:51 AM UNIT ASSISTANT BASIC METABOLIC PANEL Early AM 12/26/2024 4:51 AM UNIT ASSISTANT PHOSPHORUS Early AM 12/26/2024 4:51 AM UNIT ASSISTANT MAGNESIUM Early AM 12/26/2024 4:[address] HEAD BRAIN WO Timed 12/26/2024 12:5 1 AM UNIT ASSISTANT SCAN-CARDIAC STRIP 12/25/2024 10 :48 PM UNIT ASSISTANT SCAN-CARDIAC STRIP 12/25/2024 10 :00 PM UNIT ASSISTANT CBC WITH AUTO DIFFERENTIAL STAT 12/25/2024 9:51 PM UNIT ASSISTANT PROTIME-INR STAT 12/25/2024 9:51 PM UNIT ASSISTANT HEPATIC FUNCTION PANEL STAT 9:51 PM UNIT ASSISTANT PHOSPHORUS STAT 12/25/2024 9:51 PM UNIT ASSISTANT MAGNESIUM STAT 12/25/2024 9:51 PM UNIT ASSISTANT CBC WITH AUTO DIFFERENTIAL STAT 12/25/2024 9:51 PM UNIT ASSISTANT BASIC METABOLIC PANEL STAT 12/25/2024 9:51 PM UNIT ASSISTANT EKG 12 LEAD STAT 12/25/2024 9:45 PM UNIT ASSISTANT GLUCOSE METER Timed 12/25/2024 9:23 PM UNIT ASSISTANT from Last 3 Months Results * (ABNORMAL) HEMOGLOBIN (01/19/2025 6:37 AM UNIT ASSISTANT) Only the most recent of6 resultswithin the time period is included. HEMOGLOBIN 9.5(L) 12.0 - 16.0 g/dL 01/19/2025 7:41 AM UNIT ASSISTANT [facility] MCV 91 80 - 100 fL 01/19/2025 7:41 AM UNIT ASSISTANT [facility] Blood BLOOD SPECIMEN / Unknown Venipuncture / Unknown 01/19/2025 6:37 AM UNIT ASSISTANT 01/19/2025 7:27 AM UNIT ASSISTANT Ed Quick MD HEMATOLOGY Final Result Performing Organization Address City/[facility] Co de Phone Number [facility] [address] [address], [place] * SODIUM (01/19/2025 6:37 AM UNIT ASSISTANT) Only the most recent of37 resultswithin the time period is included. SODIUM 144 136 - 145 mmol/L 01/19/2025 7:45 AM UNIT ASSISTANT [facility] Blood BLOOD SPECIMEN / Unknown Venipuncture / Unknown 01/19/2025 6:37 AM UNIT ASSISTANT 01/19/2025 7:28 AM UNIT ASSISTANT Ed Quick MD CHEMISTRY Final Result Performing Organization Address City/[facility] Co de Phone Number [facility] [address] [address], [place] * XR Chest 1 view portable (01/16/2025 11:15 AM UNIT ASSISTANT) Only the most recent of3 resultswithin the time period is included. Anatomical Region Laterality Modality HEART, THORAX, CHEST Digital Rad iography 01/16/2025 11:3 5 AM UNIT ASSISTANT Impressions 01/16/2025 11:35 AM UNIT ASSISTANT Negative chest Dictated by José Funk MD @ Jan 16 2025 11:35AM (Electronically Signed) [email or web address] Narrative 01/16/2025 11:35 AM UNIT ASSISTANT For Patients: As a result of the [...] @ Jan 16 2025 11:35AM (Electronically Signed) [email or web address] Samina Cason MD GENERAL IMAGING Final Resul t * (ABNORMAL) CBC no diff AM (01/13/2025 10:58 AM UNIT ASSISTANT) Only the most recent of6 resultswithin the time period is included. WHITE BLOOD COUNT 6.3 4.5 - 11.0 thou/cu mm 01/13/2025 11:12 AM UNIT ASSISTANT [facility] RED BLOOD COUNT 3.10(L) 4.00 - 5.20 mil/cu mm 01/13/2025 11:12 AM UNIT ASSISTANT [facility] HEMOGLOBIN 9.1(L) 12.0 - 16.0 g/dL 01/13/2025 11:12 AM [facility] HEMATOCRIT 27.9(L) 33.0 - 51.0 % 01/13/2025 11:12 AM [facility] MCV 90 80 - 100 fL 01/13/2025 11:12 AM [facility] MCH 29.4 26.0 - 34.0 pg 01/13/2025 11:12 AM [facility] MCHC 32.6 32.0 - 36.0 g/dL 01/13/2025 11:12 AM [facility] RDW 13.4 11.5 - 15.5 % 01/13/2025 11:12 AM [facility] PLATELET COUNT 408 140 - 440 thou/cu mm 01/13/2025 11:12 AM [facility] MPV 7.7 6.5 - 11.0 fL 01/13/2025 11:12 AM [facility] NRBC 0.0 % 01/13/2025 11:12 AM [facility] ABS NRBC 0.0 thou /cu mm 01/13/2025 11:12 AM [facility] Blood BLOOD SPECIMEN / Unknown Venipuncture / Unknown 01/13/2025 10:58 AM UNIT ASSISTANT 01/13/2025 11:06 AM [facility] Ed Chavez MD HEMATOLOGY Final R esult [facility] [address] [place] [address], * POTASSIUM (01/13/2025 10:58 AM [facility]) Only the most recent of7 resultswithin the time period is included. POTASSIUM 3.9 3.5 - 5.1 mmol/L 01/13/2025 11:37 AM [facility] Blood BLOOD SPECIMEN / Unknown Venipuncture / Unknown 01/13/2025 10:58 AM UNIT ASSISTANT 01/13/2025 11:06 AM UNIT ASSISTANT Ed Chavez MD CHEMISTRY Final R [facility] Performing Organization Address City/[facility]/ZIP Co de Phone Number [facility] [address] [address], [place] * CREATININE (01/13/2025 10:58 AM UNIT ASSISTANT) Only the most recent of2 resultswithin the time period is included. eGFR >90 >90 mL/min/1.7 3m2 01/13/2025 11:37 AM UNIT ASSISTANT [facility] Comment:As of 2022, eG FR is calculated by the CKD-EPI creatinine equation without race adjustment. eGFR can be influenced by muscle mass, exercise, and diet. The reported eGFR is an estimation only and is only applicable if the renal function is stable. CREATININE 0.59 0.50 - 0.90 mg/dL 01/13/2025 11:37 AM UNIT ASSISTANT [facility] Blood BLOOD SPECIMEN / Unknown Venipuncture / Unknown 01/13/2025 10:58 AM UNIT ASSISTANT 01/13/2025 11:06 AM UNIT ASSISTANT Ed Chavez MD CHEMISTRY Final R [facility] Performing Organization Address [facility] Co de Phone Number [facility] [address] [address], [place] * (ABNORMAL) ALT AM (01/13/2025 10:58 AM UNIT ASSISTANT) Only the most recent of2 resultswithin the time period is included. ALT (SGPT) 45(H) 10 - 35 IU/L 01/13/2025 11:37 AM UNIT ASSISTANT [facility] Blood BLOOD SPECIMEN / Unknown Venipuncture / Unknown 01/13/2025 10:58 AM UNIT ASSISTANT 01/13/2025 11:06 AM UNIT ASSISTANT Ed Chavez MD CHEMISTRY Final R esult Performing Organization Address City/State/[facility] de Phone Number [facility] [address] [address], [place] * AST AM (01/13/2025 10:58 AM UNIT ASSISTANT) Only the most recent of2 resultswithin the time period is included. AST (SGOT) 27 10 - 35 IU/L 01/13/2025 11:37 AM UNIT ASSISTANT [facility] Blood BLOOD SPECIMEN / Unknown Venipuncture / Unknown 01/13/2025 10:58 AM UNIT ASSISTANT 01/13/2025 11:06 AM UNIT ASSISTANT Ed Chavez MD CHEMISTRY Final R [facility] Performing Organization Address [facility] de Phone Number [facility] [address] [address], [place] * (ABNORMAL) Alk phosphatase AM (01/13/2025 10:58 AM UNIT ASSISTANT) Only the most recent of2 resultswithin the time period is included. ALK PHOSPHATASE 110(H) 35 - 104 IU/L 01/13/2025 11:37 AM UNIT ASSISTANT [facility] Blood BLOOD SPECIMEN / Unknown Venipuncture / Unknown 01/13/2025 10:58 AM UNIT ASSISTANT 01/13/2025 11:06 AM UNIT ASSISTANT Ed Chavez MD CHEMISTRY Final R [facility] Performing Organization Address [facility] Co de Phone Number [facility] [address] [address], [place] * Ammonia AM (01/13/2025 10:58 AM UNIT ASSISTANT) AMMONIA 18 16 - 60 umol/L 01/13/2025 11:29 AM UNIT ASSISTANT [facility] Blood BLOOD SPECIMEN / Unknown Venipuncture / Unknown 01/13/2025 10:58 AM UNIT ASSISTANT 01/13/2025 11:06 AM UNIT ASSISTANT Narrative [facility] - 01/13/2025 11:29 AM UNIT ASSISTANT 1. Sulfasalazine and its metabolite Sulfapyridine at therapeutic concentrations may lead to falsely low results. 2. Temozolomide and its metabolite MTIC may lead to falsely elevated results, and its metabolite AIC may lead to falsely low results. Ed Chavez MD CHEMISTRY Final R esult Performing Organization Address [facility] Co de Phone Number [facility] [address] [place] [address], [place] * PHOSPHORUS (01/10/2025 6:46 AM UNIT ASSISTANT) Only the most recent of10 resultswithin the time period is included. PHOSPHORUS 3.6 2.5 - 4.5 mg/dL 01/10/2025 7:35 AM UNIT ASSISTANT [facility] Blood BLOOD SPECIMEN / Unknown Butterfly / Unknown 01/10/2025 6:46 AM UNIT ASSISTANT 01/10/2025 7:01 AM UNIT ASSISTANT Pina Mendez RN CHEMISTRY Final Result Performing Organization Address [facility] de Phone Number [facility] [address] [address], [place] * MAGNESIUM (01/10/2025 6:46 AM UNIT ASSISTANT) Only the most recent of8 resultswithin the time period is included. MAGNESIUM 2.1 1.6 - 2.4 mg/dL 01/10/2025 7:35 AM UNIT ASSISTANT [facility] Blood BLOOD SPECIMEN / Unknown Butterfly / Unknown 01/10/2025 6:46 AM UNIT ASSISTANT 01/10/2025 7:01 AM UNIT ASSISTANT Pina Mendez RN CHEMISTRY Final Result Performing Organization Address [facility] Co de Phone Number [facility] [address] [address], [place] * (ABNORMAL) HEPATIC FUNCTION PANEL (01/10/2025 6:46 AM UNIT ASSISTANT) Only the most recent of3 resultswithin the time period is included. ALBUMIN 3.7(L) 4.0 - 4.9 g/dL 01/10/2025 12:18 PM UNIT ASSISTANT [facility] PROTEIN,TOTAL 7.0 6.0 - 8.0 g/dL 01/10/2025 12:18 PM UNIT ASSISTANT [facility] BILIRUBIN,TOTAL 0.5 0.0 - 1.2 mg/dL 01/10/2025 12:18 PM UNIT ASSISTANT [facility] BILIRUBIN,DIRECT 0.2 0.0 - 0.2 mg/dL 01/10/2025 12:18 PM UNIT ASSISTANT [facility] BILIRUBIN,INDIRE CT 0.3 0.2 - 0.8 mg/dL 01/10/2025 12:18 PM [facility] ALK PHOSPHATASE 129(H) 35 - 104 IU/L 01/10/2025 12:18 PM [facility] ALT (SGPT) 59(H) 10 - 35 IU/L 01/10/2025 12:18 PM [facility] AST (SGOT) 34 10 - 35 IU/L 01/10/2025 12:18 PM [facility] Blood BLOOD SPECIMEN / Unknown Butterfly / Unknown 01/10/2025 6:46 AM UNIT ASSISTANT 01/10/2025 7:01 AM [facility] DO CHEMISTRY Final Result [facility] [address] [place] [id number], * (ABNORMAL) Basic metabolic panel AM (01/09/2025 6:17 AM UNIT ASSISTANT) Only the most recent of9 resultswithin the time period is included. Pathologist [facility] SODIUM 136 136 - 145 mmol/L 01/09/2025 6:57 AM [facility] POTASSIUM 3.7 3.5 - 5.1 mmol/L 01/09/2025 6:57 AM [facility] CHLORIDE 100 98 - 107 mmol/L 01/09/2025 6:57 AM [facility] CO2,TOTAL 24 22 - 29 mmol/L 01/09/2025 6:57 AM [facility] ANION GAP 12 5 - 18 01/09/2025 6:57 AM [facility] GLUCOSE 111(H) 70 - 99 mg/dL 01/09/2025 6:57 AM [facility] CALCIUM 9.0 8.8 - 10.4 mg/dL 01/09/2025 6:57 AM [facility] Comment: Reference ranges for this test were updated on 09/24/2024 to reflect our healthy population more accurately. Reference range changes are not retroactively applied to results, but previous results using the same methodology can be interpreted in the context of the new reference range. BUN 9 8 - 23 mg/dL 01/09/2025 6:57 AM [facility] CREATININE 0.38(L) 0.50 - 0.90 mg/dL 01/09/2025 6:57 AM [facility] BUN/CREAT RATIO 24(H) 10 - 20 6:57 AM [facility] eGFR >90 >90 mL/min/1. 73m2 01/09/2025 6:57 AM [facility] Comment:As of 2022, eG FR is calculated by the CKD-EPI creatinine equation without race adjustment. eGFR can be influenced by muscle mass, exercise, and diet. The reported eGFR is an estimation only and is only applicable if the renal function is stable. Blood BLOOD SPECIMEN / Unknown Non-Lab Venipuncture / Unknown 01/09/2025 6:17 AM UNIT ASSISTANT 01/09/2025 6:27 AM [facility] us Ed Chavez MD CHEMISTRY Final R esult [facility] [address] [place] [address], [place] * (ABNORMAL) LD,TOTAL (01/07/2025 6:31 AM UNIT ASSISTANT) Pathologist [facility] LD,TOTAL 349(H) 135 - 214 IU/L 01/07/2025 7:21 AM UNIT ASSISTANT [facility] Blood BLOOD SPECIMEN / Unknown Line/Port / Unknown 01/07/2025 6:31 AM UNIT ASSISTANT 01/07/2025 6:40 AM UNIT ASSISTANT Ed Chavez MD CHEMISTRY Final R esult Performing Organization Address [facility] Co de Phone Number [facility] [address] [place] [address], [place] * (ABNORMAL) HAPTOGLOBIN (01/06/2025 4:02 PM UNIT ASSISTANT) Pathologist [facility] Haptoglobin 362(H) 30 - 200 mg/dL 01/06/2025 7:51 PM UNIT ASSISTANT [facility] Blood BLOOD SPECIMEN / Unknown Non-Lab Venipuncture / Unknown 01/06/2025 4:02 PM UNIT ASSISTANT 01/06/2025 4:09 PM UNIT ASSISTANT Ed Chavez MD CHEMISTRY Final R esult Performing Organization Address [facility] de Phone Number [facility] [address] [place] [address], [place] * Platelets AM (01/06/2025 4:16 AM UNIT ASSISTANT) Only the most recent of3 resultswithin the time period is included. [facility] PLATELET COUNT 298 140 - 440 thou/cu mm 01/06/2025 4:39 AM UNIT ASSISTANT [facility] MPV 8.0 6.5 - 11.0 fL 01/06/2025 4:39 AM UNIT ASSISTANT [facility] Blood BLOOD SPECIMEN / Unknown Line/Port / Unknown 01/06/2025 4:16 AM UNIT ASSISTANT 01/06/2025 4:29 AM UNIT ASSISTANT Ed Chavez MD HEMATOLOGY Final R esult Performing Organization Address City/[facility] Co de Phone Number [facility] [address] [address], [place] * WBC AM (01/06/2025 4:16 AM UNIT ASSISTANT) Only the most recent of6 resultswithin the time period is included. WHITE BLOOD COUNT 9.6 4.5 - 11.0 thou/cu mm 01/06/2025 4:39 AM UNIT ASSISTANT [facility] NRBC 0.0 % 01/06/2025 4:39 AM UNIT ASSISTANT [facility] ABS NRBC 0.0 thou /cu mm 01/06/2025 4:39 AM UNIT ASSISTANT [facility] Blood BLOOD SPECIMEN / Unknown Line/Port / Unknown 01/06/2025 4:16 AM UNIT ASSISTANT 01/06/2025 4:29 AM UNIT ASSISTANT Ed Chavez MD HEMATOLOGY Final R esult Performing Organization Address [facility] Co de Phone Number [facility] [address] [address], [place] * (ABNORMAL) RETICULOCYTES (01/06/2025 4:16 AM UNIT ASSISTANT) Pathologist [facility] RETIC% 2.3(H) 0.5 - 1.5 % 01/06/2025 12:48 PM UNIT ASSISTANT [facility] RETIC (ABSOLUTE) 0.07 0.03 - 0.08 mil/cu mm 01/06/2025 12:48 PM UNIT ASSISTANT [facility] Blood BLOOD SPECIMEN / Unknown Line/Port / Unknown 01/06/2025 4:16 AM UNIT ASSISTANT 01/06/2025 4:29 AM UNIT ASSISTANT Ed Chavez MD HEMATOLOGY Final R esult Performing Organization Address City/[facility] Co de Phone Number [facility] [address] [address], [place] * [place] Venous doppler BILATERAL lower extremity (01/05/2025 10:07 AM UNIT ASSISTANT) Anatomical Region Laterality Modality LEGS, LEG L, LEG R Ultrasound 01/05/2025 10:1 9 AM UNIT ASSISTANT Impressions 01/05/2025 10:19 AM UNIT ASSISTANT : Unremarkable ultrasound of the bilateral lower extremity veins. No sign of venous thrombus. Dictated by Carlos Shi MD @ 01/05/2025 10:19:47 AM (Electronically Signed) Narrative 01/05/2025 10:19 AM UNIT ASSISTANT For Patients: As a result of the [...] R esult * PROCALCITONIN (01/05/2025 9:30 AM UNIT ASSISTANT) PROCALCITONIN 0.14 ng/ml 01/05/2025 10:12 AM [facility] Blood BLOOD SPECIMEN / Unknown Non-Lab Venipuncture / Unknown 01/05/2025 9:30 AM UNIT ASSISTANT 01/05/2025 9:36 AM [facility] 01/05/2025 10:12 AM [facility] Procalcitonin for initial assessment of Lower Respiratory [...] OUTS Final R esult Performing Organization Address [facility]/ZIP Co de Phone Number [facility] [address] [place] [address], [place] * Electrolyte panel AM (01/05/2025 9:30 AM UNIT ASSISTANT) SODIUM 137 136 - 145 mmol/L 01/05/2025 3:42 PM UNIT ASSISTANT [facility] POTASSIUM 4.0 3.5 - 5.1 mmol/L 01/05/2025 3:42 PM UNIT ASSISTANT [facility] CHLORIDE 104 98 - 107 mmol/L 01/05/2025 3:42 PM UNIT ASSISTANT [facility] CO2,TOTAL 22 22 - 29 mmol/L 01/05/2025 3:42 PM UNIT ASSISTANT [facility] ANION GAP 11 5 - 18 01/05/2025 3:42 PM UNIT ASSISTANT [facility] Blood BLOOD SPECIMEN / Unknown Non-Lab Venipuncture / Unknown 01/05/2025 9:30 AM UNIT ASSISTANT 01/05/2025 9:36 AM UNIT ASSISTANT Ed Chavez MD CHEMISTRY Final R esult Performing Organization Address [facility] de Phone Number [facility] [address] [place] [address], [place] * (ABNORMAL) GLUCOSE METER (01/05/2025 7:55 AM UNIT ASSISTANT) Only the most recent of35 resultswithin the time period is included. GLUCOSE METER 144(H) 65 - 100 mg/dL 01/05/2025 7:56 AM UNIT ASSISTANT [facility] Blood BLOOD SPECIMEN / Unknown 01/05/2025 7:55 AM UNIT ASSISTANT 01/05/2025 7:56 AM UNIT ASSISTANT Ed Chavez MD CHEMISTRY Final R esult Performing Organization Address City/[facility]/ZIP Co de Phone Number [facility] [address] [address], [place] * SODIUM,RANDOM URINE (01/04/2025 11:02 AM UNIT ASSISTANT) Only the most recent of2 resultswithin the time period is included. SODIUM,RANDOM URINE 92 mmol/L 01/04/2025 12:28 PM UNIT ASSISTANT [facility] Comment:No Reference Range D efined. Urine URINE SPECIMEN / Unknown Non-Blood / Unknown 01/04/2025 11:02 AM UNIT ASSISTANT 01/04/2025 11:44 AM UNIT ASSISTANT Ed Chavez MD URINE Final R esult Performing Organization Address City/[facility]/ZIP Co de Phone Number [facility] [address] [address], [place] * Osmolality, urine TODAY (01/04/2025 11:02 AM UNIT ASSISTANT) Only the most recent of2 resultswithin the time period is included. OSMOLALITY,URI NE 843 50 - 1,400 mOsmol/kg 01/04/2025 12:18 PM UNIT ASSISTANT [facility] Urine URINE SPECIMEN / Unknown Non-Blood / Unknown 01/04/2025 11:02 AM UNIT ASSISTANT 01/04/2025 11:44 AM UNIT ASSISTANT Ed Chavez MD URINE Final R esult Performing Organization Address City/[facility]/ZIP Co de Phone Number [facility] [address] [address], [place] * (ABNORMAL) Osmolality, serum TODAY (01/04/2025 11:02 AM UNIT ASSISTANT) OSMOLALITY 302(H) 275 - 300 mOsmol/kg 01/04/2025 1:22 PM UNIT ASSISTANT [facility] Comment:This is a corrected result. Previously reported as 843 mOsmol/kg with reference range 275-300 mOsmol/kg on 01/04/2025 at 1222 UNIT ASSISTANT Blood BLOOD SPECIMEN / Unknown Non-Lab Venipuncture / Unknown 01/04/2025 11:02 AM UNIT ASSISTANT 01/04/2025 11:22 AM UNIT ASSISTANT Ed Chavez MD CHEMISTRY Edited Result - Final [facility] [address] [place] [address], [place] * CT HEAD BRAIN WO (01/03/2025 4:02 PM UNIT ASSISTANT) Only the most recent of5 resultswithin the time period is included. Anatomical Region Laterality Modality HEAD, BRAIN Computed Tomogra phy 01/03/2025 4:19 PM UNIT ASSISTANT Impressions 01/03/2025 4:19 PM UNIT ASSISTANT 1. Stable size of the right occipital [...] PM (Electronically Signed) Narrative 01/03/2025 4:19 PM UNIT ASSISTANT For Patients: As a result of the [...] effusion. Bilateral lens implants. Procedure Note Bettie Renteria DO - 01/03/2025 For Patients: As a [...] * INSERT PICC LINE (01/01/2025 5:41 PM UNIT ASSISTANT) Narrative Kelechi Arora RN - 01/01/2025 5:41 PM UNIT ASSISTANT Kelechi Arora RN 01/01/2025 5:45 PM PICC Line Insertion Note 01/01/2025 5:41 PM Procedure education reviewed: Unable to discuss, due to patient condition and family not present., discussed with: Authorized sales representative printing face to face. Family face to face confirms understanding of procedure. Rail Equipment Operator used: No Reason for insertion: MD order [...] Line 2 Lumen Right;Basilic;Upper Arm PICC/SVC (Active) 01/01/251738 Right;Basilic;Upper Arm (IA) Lumen One Designation: (IA) Lumen Two Designation: Lumen One Designation: Red Lumen Two Designation: Purple Vessel Diameter: .40 [id number]-Tnbf Ratio (%): Visible Catheter Length (cm): 0 [...] cm 01/01/251739 Arm Circumference (cm) 22.5 cm 01/01/25 174 Status Lumen One Blood Return;Cap Changed;Capped/Locked 01/01/251739 Status Lumen Two Blood Return;Cap Changed;Capped/Locked 01/01/251739 Site Description Dry/Flat;Covered 01/01/251739 Line Intervention New dressing applied and NO hemostatic agent/gauze 01/01/251739 Dressing change due date 01/08/2025 01/01/251739 Line Photo Equipment Technician Name: Bard Line Type: Valved Power PICC Lot Number: [id number] Access Assistance:Modified Seldinger Technique (Micro-Introducer) WITHOUT Dermatotomy [...] to patient condition and family not present Ed Chavez MD IV ORD Final R esult * CORTISOL TOTAL (01/01/2025 4:37 PM UNIT ASSISTANT) CORTISOL,TOTAL 23.7 ug/dL 01/01/2025 5:35 PM UNIT ASSISTANT [facility] Blood BLOOD SPECIMEN / Unknown Butterfly / Unknown 01/01/2025 4:37 PM UNIT ASSISTANT 01/01/2025 4:43 PM UNIT ASSISTANT Narrative [facility] - 01/01/2025 5:35 PM UNIT ASSISTANT Cortisol Morning Hours 6:00 AM - 10:00 AM (4.8-19.5 ug/dL) Cortisol Afternoon Hours 4:00 PM - 8:00 PM (2.5-11.9 ug/dL) Biotin supplements may cause clinically significant interference for this test assay. If interference is suspected, it is strongly recommended that biotin is discontinued for at least one week prior to retesting. Ed Chavez MD CHEMISTRY Final R esult Performing Organization Address [facility] Co de Phone Number [facility] [address] [place] [phone], [place] * TSH FOR ADD ON (01/01/2025 11:17 AM UNIT ASSISTANT) TSH 1.97 0.27 - 4.20 uIU/mL 01/01/2025 4:19 PM UNIT ASSISTANT [facility] Blood BLOOD SPECIMEN / Unknown Butterfly / Unknown 01/01/2025 11:17 AM UNIT ASSISTANT 01/01/2025 11:35 AM UNIT ASSISTANT Narrative [facility] - 01/01/2025 4:19 PM UNIT ASSISTANT In Adults, TSH values between 5.00 and 10.00 uIU/ml do not necessarily indicate the presence of Hypothyroidism. Correlation with clinical findings such as presence of goiter and/or Thyroperoxidase (TPO) Antibody may be helpful. For more information please refer to REHANA 2004; 291: 228-238. Ed Chavez MD CHEMISTRY Final R esult Performing Organization Address [facility] Co de Phone Number [facility] [address] [place] [phone], [place] * CT CHEST ABDOMEN PELVIS W (12/31/2024 4:48 PM UNIT ASSISTANT) Anatomical Region Laterality Modality Abdomen, Pelvis, AORTA, LIVER, SPLEEN, CHEST Computed Tomography 12/31/2024 8:51 PM UNIT ASSISTANT Narrative 12/31/2024 8:51 PM UNIT ASSISTANT For Patients: As a result of the [...] esult * Blood culture (12/31/2024 12:29 PM UNIT ASSISTANT) Only the most recent of2 resultswithin the time period is included. Pathologist [facility] CULTURE No Growth. 01/05/2025 2:55 PM UNIT ASSISTANT [facility] Blood BLOOD SPECIMEN / Unknown Non-Lab Venipuncture / Unknown 12/31/2024 12:29 PM UNIT ASSISTANT 12/31/2024 12:40 PM UNIT ASSISTANT Narrative [facility] - 01/05/2025 2:55 PM UNIT ASSISTANT Low volume blood culture received; possible false negative culture. Ed Chavez MD MICROBIOLOGY Final R esult [facility] [address] [place] [address], * COVID/FLU/RSV PANEL (12/30/2024 10:17 AM UNIT ASSISTANT) Pathologist [facility] COVID 19 [facility] Negative Negative 12/30/2024 11:34 AM UNIT ASSISTANT [facility] Comment:All PCR tests are rae bject to false negative result due to variability in viral load and collection technique. A negative result does not rule out a SARS-CoV-2 infection. Clinical correlation required. INFLUENZA A PCR Negative 11:34 AM UNIT ASSISTANT [facility] INFLUENZA B PCR Negative 11:34 AM UNIT ASSISTANT [facility] Respiratory Syncytial Virus Negative 12/30/2024 11:34 AM UNIT ASSISTANT [facility] Swab NASOPHARYNGEAL SWAB / Unknown Non-Blood / Unknown 12/30/2024 10:17 AM UNIT ASSISTANT 12/30/2024 10:31 AM UNIT ASSISTANT us Ed Chavez MD MICROBIOLOGY Final R esult Performing Organization Address City/[facility]/ZIP Co de Phone Number [facility] [address] [address], [place] * URINALYSIS MICROSCOPIC (12/29/2024 2:21 PM UNIT ASSISTANT) RBC 0-2 0-2, None Seen /HPF 12/29/2024 2:31 PM UNIT ASSISTANT [facility] WBC 3-5 0-2, 3-5, None Seen /HPF 12/29/2024 2:31 PM UNIT ASSISTANT [facility] BACTERIA None Seen None Seen, Rare, Few Bacteria/ HPF 12/29/2024 2:31 PM UNIT ASSISTANT [facility] EPITHELIAL CELLS None Seen None Seen, Few Epi/HPF 12/29/2024 2:31 PM UNIT ASSISTANT [facility] HYALINE CASTS 0-2 0-2, 3-5 /LPF 12/29/2024 2:31 PM UNIT ASSISTANT [facility] Urine URINE SPECIMEN / Unknown Non-Blood / Unknown 12/29/2024 2:21 PM UNIT ASSISTANT 12/29/2024 2:21 PM UNIT ASSISTANT us Tino Lemus MD URINE Final Re sult Performing Organization Address City/[facility]/ZIP Co de Phone Number [facility] [address] [address], [place] * (ABNORMAL) Urinalysis TODAY (12/29/2024 2:21 PM UNIT ASSISTANT) Only the most recent of2 resultswithin the time period is included. COLOR Yellow Yellow Color 12/29/2024 2:31 PM UNIT ASSISTANT [facility] CLARITY Clear Clear Clarity 12/29/2024 2:31 PM UNIT ASSISTANT [facility] SPECIFIC GRAVITY,URINE <=1.005(A) 1.010, 1.015, 1.020, 1.025 12/29/2024 2:31 PM UNIT ASSISTANT [facility] PH,URINE 8.0 6.0, 7.0, 8.0, 5.5, 6.5, 7.5, 8.5 12/29/2024 2:31 PM [facility] UROBILINOGEN, QUALITATIVE Normal Normal EU/dl 12/29/2024 2:31 PM [facility] PROTEIN, URINE Negative Negative mg/dL 12/29/2024 2:31 PM UNIT ASSISTANT [facility] GLUCOSE, URINE Negative Negative mg/dL 12/29/2024 2:31 PM UNIT ASSISTANT [facility] KETONES,URINE Negative Negative mg/dL 12/29/2024 2:31 PM UNIT ASSISTANT [facility] BILIRUBIN,URI NE Negative Negative 12/29/2024 2:31 PM UNIT ASSISTANT [facility] OCCULT BLOOD,URINE Negative Negative 12/29/2024 2:31 PM UNIT ASSISTANT [facility] NITRITE Negative Negative 12/29/2024 2:31 PM UNIT ASSISTANT [facility] LEUKOCYTE ESTERASE Small(A) Negative 12/29/2024 2:31 PM UNIT ASSISTANT [facility] Urine URINE SPECIMEN / Unknown Non-Blood / Unknown 12/29/2024 2:21 PM UNIT ASSISTANT 12/29/2024 2:21 PM UNIT ASSISTANT us Tino Lemus MD URINE Final Re sult [facility] [address] [address], [place] * XR ABDOMEN 1 VIEW PORTABLE (12/28/2024 6:33 PM UNIT ASSISTANT) Anatomical Region Laterality Modality Abdomen Digital Radiogra phy 12/28/2024 6:59 PM UNIT ASSISTANT Impressions 12/28/2024 6:59 PM UNIT ASSISTANT Enteric tube tip in the proximal stomach. Dictated by Frederick Spencer MD @ 12/28/2024 6:59:22 PM (Electronically Signed) Narrative 12/28/2024 6:59 PM UNIT ASSISTANT For Patients: As a result of the [...] MD @ 12/28/2024 6:59:22 PM (Electronically Signed) Angie Holm MD GENERAL IMAGING Final Result * SCAN-CARDIAC STRIP (12/28/2024 7:30 AM UNIT ASSISTANT) us Scanner OTHER Final Result * SCAN-RADIOLOGY REPORT (12/28/2024 12:00 AM UNIT ASSISTANT) Anatomical Region Laterality Modality Other Narrative 12/28/2024 12:00 AM UNIT ASSISTANT Ordered by an unspecified provider. us Other Clinical Staff OTHER Final Resul t * MR BRAIN WO CONTRAST (12/26/2024 4:45 PM UNIT ASSISTANT) Anatomical Region Laterality Modality BRAIN, HEAD Magnetic Resonan ce 12/27/2024 8:50 AM UNIT ASSISTANT Narrative 12/27/2024 8:50 AM UNIT ASSISTANT For Patients: As a result of the [...] AM (Electronically Signed) Procedure Note Bettie Renteria, DO - 12/27/2024 For Patients: As a result [...] sult * SCAN CORRESP-IMAGING (12/26/2024 10:44 AM UNIT ASSISTANT) Anatomical Region Laterality Modality Other Narrative 12/26/2024 10:44 AM UNIT ASSISTANT Ordered by an unspecified provider. us Other Clinical Staff OTHER Final Resul t * SCAN-CARDIAC STRIP (12/25/2024 10:48 PM UNIT ASSISTANT) us Scanner OTHER Final Result * SCAN-CARDIAC STRIP (12/25/2024 10:00 PM UNIT ASSISTANT) us Scanner OTHER Final Result * (ABNORMAL) CBC WITH AUTO DIFFERENTIAL (12/25/2024 9:51 PM UNIT ASSISTANT) WHITE BLOOD COUNT 12.0(H) 4.5 - 11.0 thou/cu mm 12/25/2024 10:14 PM UNIT ASSISTANT [facility] RED BLOOD COUNT 4.06 4.00 - 5.20 mil/cu mm 12/25/2024 10:14 PM UNIT ASSISTANT [facility] HEMOGLOBIN 12.1 12.0 - 16.0 g/dL 12/25/2024 10:14 PM UNIT ASSISTANT [facility] HEMATOCRIT 37.4 33.0 - 51.0 % 12/25/2024 10:14 PM UNIT ASSISTANT [facility] MCV 92 80 - 100 fL 12/25/2024 10:14 PM [facility] MCH 29.8 26.0 - 34.0 pg 12/25/2024 10:14 PM [facility] MCHC 32.4 32.0 - 36.0 g/dL 12/25/2024 10:14 PM [facility] RDW 13.3 11.5 - 15.5 % 12/25/2024 10:14 PM [facility] PLATELET COUNT 220 140 - 440 thou/cu mm 12/25/2024 10:14 PM [facility] MPV 8.7 6.5 - 11.0 fL 12/25/2024 10:14 PM [facility] NRBC 0.0 % 12/25/2024 10:14 PM [facility] ABS NRBC 0.0 thou /cu mm 12/25/2024 10:14 PM [facility] % NEUT 78.7 % 12/25/2024 10:14 PM [facility] % LYMPH 15.6 % 12/25/2024 10:14 PM [facility] % MONO 4.8 % 12/25/2024 10:14 PM [facility] % EOS 0.1 % 12/25/2024 10:14 PM [facility] % BASO 0.4 % 12/25/2024 10:14 PM [facility] % IMMATURE GRAN (METAS,MYELOS,DE OS) 0.4 % 12/25/2024 10:14 PM [facility] ABSOLUTE NEUTROPHILS 9.5(H) 1.7 - 7.0 thou/cu mm 12/25/2024 10:14 PM [facility] ABSOLUTE LYMPHOCYTES 1.9 0.9 - 2.9 thou/cu mm 12/25/2024 10:14 PM [facility] ABSOLUTE MONOCYTES 0.6 <0.9 thou/cu mm 12/25/2024 10:14 PM [facility] ABSOLUTE EOSINOPHILS 0.0 <0.5 thou/cu mm 12/25/2024 10:14 PM [facility] ABSOLUTE BASOPHILS 0.1 <0.3 thou/cu mm 12/25/2024 10:14 PM [facility] ABSOLUTE IMMATURE GRANULOCYTES(MET ,MYELOS,PROS) 0.1 <0.3 thou/cu mm 12/25/2024 10:14 PM UNIT ASSISTANT [facility] Blood BLOOD SPECIMEN / Unknown Venipuncture / Unknown 12/25/2024 9:51 PM UNIT ASSISTANT 12/25/2024 9:59 PM UNIT ASSISTANT Helena Smith DO HEMATOLOGY Final Result Performing Organization Address [facility] de Phone Number [facility] [address] [address], [place] * Protime - INR (12/25/2024 9:51 PM UNIT ASSISTANT) Pathologist [facility] INR 1.0 <1.3 12/25/2024 10:27 PM UNIT ASSISTANT [facility] PROTIME 10.9 10.6 - 12.4 sec 12/25/2024 10:27 PM UNIT ASSISTANT [facility] Blood BLOOD SPECIMEN / Unknown Venipuncture / Unknown 12/25/2024 9:51 PM UNIT ASSISTANT 12/25/2024 9:59 PM UNIT ASSISTANT Narrative [facility] - 12/25/2024 10:27 PM UNIT ASSISTANT Therapeutic Range 2.0-3.0 for most anticoagulated patients [...] DO HEMATOLOGY Final Result Performing Organization Address [facility] de Phone Number [facility] [address] [address], [place] * 12 Lead EKG (12/25/2024 9:45 PM UNIT ASSISTANT) Interpretation Normal sinus rhythm Normal ECG No previous ECGs available BEYOND NOW Ventricular Rate 68 BPM BEYOND NOW Atrial Rate 68 BPM BEYOND NOW P-R Interval 158 ms BEYOND NOW QRS Duration 70 ms BEYOND NOW QT 420 ms BEYOND NOW QTc 446 ms [place] NOW [place] 80 degrees BEYOND NOW [place] 58 degrees [place] NOW [place] 61 degrees BEYOND NOW 12/25/2024 9:45 PM UNIT ASSISTANT 12/26/2024 8:39 AM UNIT ASSISTANT us Helena Smith DO EKG ORD Final Result BEYOND NOW [place], [place] from Last 3 Months Insurance BLUE [employer] MARTINEZ BLUE MR PB ONLY MEDICARE PART B HB ONLY MEDICARE PART A HB ONLY [facility] MEDICARE PPS Advance Directives Documents on File Type Date Recorded Patient Time 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 Inspector Expl anation Healthcare Directive 12/31/2024 5:22 PM Healthcare Directive 02/28/2000 12:00 AM * Full Code (Latest Code Status on File) Date Activated Date Inactivated Comments 12/25/2024 9:33 PM 01/20/2025 2:01 PM Question Answer Comments Code Status Discussion: Unable to Assess Preferences, Provider to review later * Full Code Date Activated Date Inactivated Comments 11/30/2007 12:12 PM 12/01/2007 12:17 PM Care Teams Vegetable Loader Machine 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
[2025-03-16 15:26] VITALS: BP 121/66; PULSE 92; RESP 18; TEMP 37.4; O2SAT 97; BMI 18.2
[2025-03-16 15:31] VITALS: BP 113/68; PULSE 97; RESP 14; O2SAT 95
--- NOTE | 2025-03-16 15:36 | CRLHL7_ITS ---
For Patients: As a result of the Century Cures Act, medical imaging exams and procedure reports are released immediately into your electronic medical record. You may view this report before your referring provider. If you have questions, please contact your health care provider. Indication: : AMS TECHNIQUE: Single-view chest. FINDINGS: The lungs are clear. The heart, mediastinum and pulmonary vessels are of normal size. There is no evidence of pleural disease. Old right posterior rib fracture additionally there is a right posterior 8th rib fracture age indeterminate but could be acute Dictated by Sonya Yee MD @ 03/16/2025 4:48:42 PM (Electronically Signed)
--- NOTE | 2025-03-16 15:36 | CRLHL7_ITS ---
For Patients: As a result of the Century Cures Act, medical imaging exams and procedure reports are released immediately into your electronic medical record. You may view this report before your referring provider. If you have questions, please contact your health care provider. INDICATION: Altered mental status. TECHNIQUE: Noncontrast CT of the head with multiplanar reconstruction utilizing bone and soft tissue algorithms. COMPARISON: CT head dated 03/01/2025. FINDINGS: No new acute intracranial hemorrhage. Maturation of the right occipital intraparenchymal hematoma with developing encephalomalacia. Similar scattered hypoattenuation elsewhere within the supratentorial white matter typical for moderate chronic small-vessel ischemic changes. Unchanged caliber of the enlarged supratentorial ventricles. No abnormal extra-axial fluid collection is identified. Intact calvarium and skull base. Symmetric globes. The imaged paranasal sinuses and mastoid air cells are clear. IMPRESSION: 1. Maturation of the right occipital intraparenchymal hematoma with developing encephalomalacia. 2. No new intracranial hemorrhage or mass effect. 3. Similar moderate diffuse parenchymal volume loss and chronic small vessel ischemic changes. Please note that all CT scans at this facility use dose modulation, iterative reconstruction, and/or weight-based dosing when appropriate to reduce radiation dose to as low as reasonably achievable. Dictated by John Silva MD @ 03/16/2025 4:35:28 PM (Electronically Signed)
--- NOTE | 2025-03-16 15:41 | CRLHL7_ITS ---
For Patients: As a result of the Century Cures Act, medical imaging exams and procedure reports are released immediately into your electronic medical record. You may view this report before your referring provider. If you have questions, please contact your health care provider. INDICATION: Acute stroke. TECHNIQUE: CTA neck with contrast bolus tracking, 3D angiographic rendering using maximum intensity projection (MIP) and images permanently archived. FINDINGS: There is carotid atherosclerosis. There is no significant carotid artery stenosis or dissection. There is no significant vertebral artery stenosis or dissection. The soft tissues of the neck are within normal limits. The cervical spine is in normal alignment. Degenerative changes are noted in the cervical spine. IMPRESSION: No significant carotid or vertebral artery stenosis or dissection. Please note that all CT scans at this facility use dose modulation, iterative reconstruction, and/or weight-based dosing when appropriate to reduce radiation dose to as low as reasonably achievable. Dictated by Isaac Grace MD @ 03/16/2025 5:10:45 PM (Electronically Signed)
--- NOTE | 2025-03-16 15:41 | CRLHL7_ITS ---
For Patients: As a result of the Century Cures Act, medical imaging exams and procedure reports are released immediately into your electronic medical record. You may view this report before your referring provider. If you have questions, please contact your health care provider. INDICATION: Acute stroke. TECHNIQUE: CTA head with contrast bolus tracking, 3D angiographic rendering using maximum intensity projection (MIP) and images permanently archived. FINDINGS: There is normal opacification of the intracranial vasculature. There is no large vessel occlusion. No aneurysm is identified. IMPRESSION: Unremarkable head CTA. Please note that all CT scans at this facility use dose modulation, iterative reconstruction, and/or weight-based dosing when appropriate to reduce radiation dose to as low as reasonably achievable. Dictated by Isaac Grace MD @ 03/16/2025 5:11:44 PM (Electronically Signed)
[2025-03-16 16:03] LABS: Basophils Absolute Auto 0.04 K/uL (0.00-0.30); Basophils Percent Auto 0.4 % (0.0-3.0); Eosinophils Absolute Auto 0.02 K/uL (0.00-0.50); Eosinophils Percent Auto 0.2 % (0.0-7.0); Hematocrit 37.6 % (33.0-51.0); Hemoglobin* 11.9 gm/dL (12.0-16.0); Immature Granulocytes Abs Auto 0.02 K/uL (0.00-0.30); Immature Granulocytes Pct Auto 0.2 %; Mean Corpuscular HGB Conc 32 gm/dL (32-36); Mean Corpuscular Hemoglobin 29 pg (26-34); Mean Corpuscular Volume 90 fL (80-100); Monocytes Percent Auto 7.5 % (0.0-11.0); Neutrophils Percent Auto 77.7 % (42.0-72.0); Platelet Count* 291 K/uL (140-440); RDW Coefficient of Variation % 14.1 % (11.5-15.5); Red Blood Count 4.17 m/uL (4.00-5.20); White Blood Count* 9.89 K/uL (4.50-11.00)
[2025-03-16 16:07] LABS: Slide Review Reflex No
[2025-03-16 16:17] LABS: Chloride* 97 mmol/L (96-114); Potassium* 4.8 mmol/L (3.6-5.1); Sodium* 138 mmol/L (135-149)
[2025-03-16 16:20] LABS: Anion Gap 8 mEq/L (7-15); Blood Urea Nitrogen* 21 mg/dL (7-30); Carbon Dioxide* 33 mmol/L (20-32); Creatinine* 0.6 mg/dL (0.5-1.5); Estimated Glomerular Filt Rate 91 ml/min
[2025-03-16 16:21] LABS: Calcium* 9.6 mg/dL (8.4-10.6); Glucose* 104 mg/dL (60-115)
--- NOTE | 2025-03-16 16:28 | ED.AMS ---
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 At baseline she needs assist for movement and can speak in very short sentences but does struggle with it. She started having decrease in her mentation starting yesterday but seems profoundly worse today. She is not responsive and just staring out into the distance. The caregiver in the room states this is very abnormal for her. They are concerned she is having another stroke. She was also leaning to her left. No other abnormalities noted. Patient is unable answer any questions and does not follow commands. Related Data Home Medications ?Medication ?Instructions ?Recorded ?Confirmed cetirizine 10 mg tablet (Zyrtec) 10 mg PO DAILY PRN 03/04/24 02/24/25 lidocaine 4 % topical patch 1 patch topical BID PRN 01/21/25 02/24/25 Previous Rx's ?Medication ?Instructions ?Recorded mirtazapine 30 mg tablet 30 mg PO QHS #30 tabs 02/17/25 gabapentin 300 mg capsule 300 mg PO QHS #90 caps 02/24/25 lorazepam 0.5 mg tablet 0.25 - 0.5 mg (0.5 - 1 x 0.5 mg) 02/24/25 PO QHS PRN agitation #30 tabs olanzapine 5 mg tablet 5 mg PO BID #60 tabs 02/24/25 sertraline 100 mg tablet 50 mg (1/2 x 100 mg) PO QDAY #45 02/24/25 tabs cefpodoxime 200 mg tablet 200 mg PO BID #10 tabs 03/16/25 Allergies Allergy/AdvReac Type Severity Reaction Status Date / Time pollen extracts Allergy Intermediate Verified 03/01/25 12:38 Review of Systems Status of ROS: Reports: unobtainable due to mental status PFS PFS Medical History 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) ?M47.816 - Spondylosis without myelopathy or radiculopathy, lumbar region (ICD-10) Encephalopathy ?G93.40 - Encephalopathy, unspecified (ICD-10) Severe Alzheimer dementia with agitation ?G30.9 - Alzheimer's disease, unspecified (ICD-10) ?F02.C11 - Dementia in other diseases classified elsewhere, severe, with agitation (ICD-10) Nontraumatic cortical hemorrhage of right cerebral hemisphere ?I61.1 - Nontraumatic intracerebral hemorrhage in hemisphere, cortical (ICD-10) Generalized anxiety disorder ?F41.1 - Generalized anxiety disorder (ICD-10) Major depression, recurrent ?F33.9 - Major depressive disorder, recurrent, unspecified (ICD-10) Allergic rhinitis ?J30.9 - Allergic rhinitis, unspecified (ICD-10) Sensorineural hearing loss (SNHL) of both ears ?H90.3 - Sensorineural hearing loss, bilateral (ICD-10) Fracture of rib ?S22.39XA - Fracture of one rib, unspecified side, initial encounter for closed fracture (ICD-10) Atopic dermatitis ?L20.9 - Atopic dermatitis, unspecified (ICD-10) Actinic keratoses ?L57.0 - Actinic keratosis (ICD-10) Recurrent cold sores ?B00.1 - Herpesviral vesicular dermatitis (ICD-10) Bilateral cataracts ?H26.9 - Unspecified cataract (ICD-10) Incontinence of feces (11/21/23) ?R15.9 - Full incontinence of feces (ICD-10) 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/22/19) ?Z85.89 - Personal history of malignant neoplasm of other organs and systems (ICD-10) History of Lyme disease (11/22/19) ?Z86.19 - Personal history of other infectious and parasitic diseases (ICD-10) History of COVID-19 (10/27/21) ?Z86.16 - Personal history of COVID-19 (ICD-10) Hearing aid worn (10/27/21) ?Z97.4 - Presence of external hearing-aid (ICD-10) Osteoporosis (11/22/19) ?M81.0 - Age-related osteoporosis without current pathological fracture (ICD-10) Osteoarthritis of left hip ?M16.12 - Unilateral primary osteoarthritis, left hip (ICD-10) 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 ?L03.90 - Cellulitis, unspecified (ICD-10) ?A28.0 - Pasteurellosis (ICD-10) ?W55.01XA - Bitten by cat, initial encounter (ICD-10) Osteoporosis (2012) ?M81.0 - Age-related osteoporosis without current pathological fracture (ICD-10) Insomnia ?G47.00 - Insomnia, unspecified (ICD-10) Surgical History History of total left hip replacement (03/04/24) ?Z96.642 - Presence of left artificial hip joint (ICD-10) H/O excision of ganglion cyst (04/03/97) ?Z98.890 - Other specified postprocedural states (ICD-10) History of laminectomy ?Z98.890 - Other specified postprocedural states (ICD-10) 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) ?Z96.641 - Presence of right artificial hip joint (ICD-10) Status post dilation and curettage (1989) ?Z98.890 - Other specified postprocedural states (ICD-10) History of microdiscectomy (2007) ?Z98.890 - Other specified postprocedural states (ICD-10) History of hysterectomy (1989) ?Z90.710 - Acquired absence of both cervix and uterus (ICD-10) Family History Father Depression Social History Narrative: Exercises regularly- 3-4/ week, 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 In the past 12 months, utilities in danger of being shut off: unable to answer In past 12 months, lack of transportation kept you from medical appts, meetings, work, or getting things needed for daily living: unable to answer In the past 12 mos, have been you worried that your food would run out before you had money to buy more?: unable to answer In the past 12 mos, the food you bought just didn't last and you didn't have money to buy more?: unable to answer Smoking Status: Unknown if ever smoked Do you use any of these nicotine containing products: None Second hand tobacco smoke exposure: No How often do you have a drink containing alcohol: never AUDIT-C Alcohol total score: 0 Non-prescribed substance use: denies use How often does anyone, including family, friends and others, physically hurt you: unable to answer How often does anyone, including family, friends and others, insult or talk down to you: unable to answer How often does anyone, including family, friends and others, threaten you with harm: unable to answer How often does anyone, including family, friends and others, scream or curse at you: unable to answer Exam Narrative: Exam Narrative: Const: In no apparent distress Eyes: PERRL, no conjunctival injection, and symmetrical lids HENT: Atraumatic external nose and ears. Moist mucous membranes. Neck: Symmetric, trachea midline, No thyromegaly. CVS: RRR, No murmurs or gallops. Peripheral pulses 2+ and equal in all extremities RESP: Unlabored respiratory effort. Clear to auscultation bilaterally. GI: Nontender/Nondistended, No rebound or guarding. MSK:Extremities w/o deformity, Normal Active ROM Skin: Warm, Dry. No rashes or lesions. Neuro: Normal Muscle tone, does not follow commands and neuro exam is difficult to perform. Psych: Awake, Alert, but does not respond Const: Vital Signs, click to edit/add: Vital Signs - 24 hr 03/16/25 15:26 03/16/25 15:31 Temperature 99.3 F Pulse Rate 97 Pulse Rate [Right Pulse Oximeter] 92 Respiratory Rate 18 14 Blood Pressure 113/68 Blood Pressure [Ri ght Upper Arm] 121/66 Pulse Oximetry 97 95 Oxygen Delivery Me thod Room Air Course Vital Signs Vital signs: Initial Vital Signs Temperature 99.3 F 03/16/25 15:26 Temperature Source Temporal Artery Scan 03/16/25 15:26 Pulse Rate 92 03/16/25 15:26 Pulse Rhythm Regular 03/16/25 15:26 Pulse Strength 3+ Normal 03/16/25 15:26 Respiratory Rate 18 03/16/25 15:26 Blood Pressure 121/66 03/16/25 15:26 Blood Pressure Mean 84 03/16/25 15:26 Blood Pressure Position Sitting 03/16/25 15:26 Pulse Oximetry 97 03/16/25 15:26 Oxygen Delivery Method Room Air 03/16/25 15:26 Vital Signs Temperature 99.3 F 03/16/25 15:26 Pulse Rate 92 03/16/25 15:26 Respiratory Rate 18 03/16/25 15:26 Blood Pressure 121/66 03/16/25 15:26 Pulse Oximetry 97 03/16/25 15:26 Oxygen Delivery Method Room Air 03/16/25 15:26 Temperature 99.3 F 03/16/25 15:26 Pulse Rate 97 03/16/25 15:31 Respiratory Rate 14 03/16/25 15:31 Blood Pressure 113/68 03/16/25 15:31 Pulse Oximetry 95 03/16/25 15:31 Oxygen Delivery Method Room Air 03/16/25 15:26 Medications Administered Medications: Generic Name Dose Route Start Last Admin Trade Name Freq PRN Reason Stop Dose Admin Sodium Chloride 500 mls @ 1,000 mls/hr 03/16/25 17:03 03/16/25 17:12 0.9 % Sodium Chloride 500 Ml IV 03/16/25 17:32 1,000 mls/hr .Q30M ONE Administration MDM - Altered Mental Status MDM Narrative Medical decision making narrative: Patient is a 79-year-old female presenting for altered mental status. She has baseline dementia that has worsened since her hemorrhagic stroke 3 months ago. Family is concerned she is having another stroke. Her vital signs are stable. Will do CT scan of the head, CTA head and neck into chest x-ray to look for signs for altered mental status. Will also check a urinalysis, COVID/flu/RSV, EKG, troponin, BMP, CBC. Lab work returned showing no concerning abnormalities. It was difficult to get an adequate EKG on her as she did not sit still very well. With all the artifact I do not see any abnormalities. The CT scan of her head shows maturation of the right occipital into appearing time a hematoma with developing encephalomalacia. This is not an acute issue and is expected course of her hemorrhage. No acute intracranial abnormalities. CTA head and neck showed no concerning abnormalities. Chest x-ray shows no concerning findings. Urinalysis does show signs of UTI. This is likely the source of her symptoms. She does have a history of incontinence. Will discharge her on antibiotics. Family is agreeable to this plan. Patient's activity level has been improving throughout her time in the emergency department. Cefpodoxime prescribed. Most recent urinalysis shows resistance to 1st generation cephalosporin and she was given cefpodoxime in hospital last time she was here. Will be given a dose in the ED. Lab Data Labs: Lab Results 03/16/25 03/16/25 Range/Units 15:50 17:45 WBC 9.89 (4.50-11.00) K/uL RBC 4.17 (4.00-5.20) m/uL Hgb 11.9 L (12.0-16.0) gm/dL Hct 37.6 (33.0-51.0) % MCV 90 (80-100) fL MCH 29 (26-34) pg MCHC 32 (32-36) gm/dL RDW Coeff of Mayelin 14.1 (11.5-15.5) % Plt Count 291 (140-440) K/uL Neut % (Auto) 77.7 H (42.0-72.0) % Lymph % (Auto) 14.0 L (20-44) % [place] % (Auto) 7.5 (0.0-11.0) % Eos % (Auto) 0.2 (0.0-7.0) % Baso % (Auto) 0.4 (0.0-3.0) % Neut # (Auto) 7.70 H (1.7-7.0) K/uL Lymph # (Auto) 1.40 (0.90-2.90) K/uL [place] # (Auto) 0.70 (0.00-0.90) K/UL Eos # (Auto) 0.02 (0.00-0.50) K/uL Baso # (Auto) 0.04 (0.00-0.30) K/uL Abs Immat Gran (auto) 0.02 (0.00-0.30) K/uL Imm/Tot Granulo (auto) 0.2 % Sodium 138 (135-149) mmol/L Potassium 4.8 (3.6-5.1) mmol/L Chloride 97 (96-114) mmol/L Carbon Dioxide 33 H (20-32) mmol/L Anion Gap 8 (7-15) mEq/L BUN 21 (7-30) mg/dL Creatinine 0.6 (0.5-1.5) mg/dL Estimated Creat Clear 29.40 Estimated GFR 91 ml/min Glucose 104 (60-115) mg/dL Calcium 9.6 (8.4-10.6) mg/dL Urine Color Yellow (Yellow) Urine Appearance Clear (Clear) Urine pH 8.0 (5.0-8.5) Ur Specific [place] 1.015 (1.000-1.030) Urine Protein Negative (Negative) Urine Glucose (UA) Negative (Negative) Urine Ketones Negative (Negative) Urine Blood Trace-intact A (Negative) Urine Nitrite Positive A (Negative) Urine Bilirubin Negative (Negative) Urine Urobilinogen 0.2 (0.2-1.0) Ur Leukocyte Esterase Negative (Negative) Urine RBC 0-2 (0-2) Urine WBC 0-2 (0-5) Ur Squamous Epith Cells None (None-Few) Amorphous Sediment Moderate A (None) Urine Bacteria Moderate A (None) SARS-CoV-2 (PCR) Negative SARS-CoV-2 (Negative) Influenza Type A (PCR) Negative PCR FLU A (Negative) Influenza Type B (PCR) Negative PCR FLU B (Negative) RSV (PCR) Negative PCR RSV (Negative) POC Troponin I 0.00 L (0.01-0.04) ng/ml Imaging Data CTA neck: Attestation: I have reviewed the pertinent imaging results. Radiologist's impression: No significant carotid or vertebral artery stenosis or dissection. Please note that all CT scans at this facility use dose modulation, iterative reconstruction, and/or weight-based dosing when appropriate to reduce radiation dose to as low as reasonably achievable. Dictated by Isaac Grace MD @ 03/16/2025 5:10:45 PM CTA head: Attestation: I have reviewed the pertinent imaging results. Radiologist's impression: Unremarkable head CTA. Please note that all CT scans at this facility use dose modulation, iterative reconstruction, and/or weight-based dosing when appropriate to reduce radiation dose to as low as reasonably achievable. Dictated by Isaac Grace MD @ 03/16/2025 5:11:[address] scan - head: Attestation: I have reviewed the pertinent imaging results. Radiologist's impression: 1. Maturation of the right occipital intraparenchymal hematoma with developing encephalomalacia. 2. No new intracranial hemorrhage or mass effect. 3. Similar moderate diffuse parenchymal volume loss and chronic small vessel ischemic changes. Please note that all CT scans at this facility use dose modulation, iterative reconstruction, and/or weight-based dosing when appropriate to reduce radiation dose to as low as reasonably achievable. Dictated by John Silva MD @ 03/16/2025 4:35:28 PM Chest x-ray: Attestation: I have reviewed the pertinent imaging results. Radiologist's impression: The lungs are clear. The heart, mediastinum and pulmonary vessels are of normal size. There is no evidence of pleural disease. Old right posterior rib fracture additionally there is a right posterior 8th rib fracture age indeterminate but could be acute Dictated by Sonya Yee MD @ 03/16/2025 4:48:42 PM ECG Data Attestation: I personally reviewed and interpreted this ECG as follows: Prior ECG tracings: available for review Interpretation: Normal sinus rhythm with rate of 90 beats per minute, normal intervals, normal axis, no ST or T-wave abnormalities. Quite a bit of artifact Discharge Plan Discharge Clinical Impression: Acute UTI Patient Disposition: Home w/ Parent or Adult Condition: Improved Instructions: Urinary Tract Infection in Older Adults (ED) Additional Instructions: I believe her symptoms are all from a urinary tract infection. I will prescribe cefpodoxime. Take as prescribed . Return to emergency department for new or worsening symptoms. Prescriptions: New cefpodoxime 200 mg tablet 200 mg PO BID Qty: 10 0RF Rx Instructions: must administer with a meal/food No Action lidocaine 4 % adhesive patch,medicated 1 patch topical BID PRN olanzapine 5 mg tablet 5 mg PO BID Qty: 60 1RF gabapentin 300 mg capsule 300 mg PO QHS Qty: 90 1RF sertraline 100 mg tablet 50 mg PO QDAY Qty: 45 1RF lorazepam 0.5 mg tablet 0.25 - 0.5 mg PO QHS PRN (Reason: agitation) Qty: 30 0RF cetirizine [Zyrtec] 10 mg tablet 10 mg PO DAILY PRN mirtazapine 30 mg tablet 30 mg PO QHS Qty: 30 0RF Follow Up/Referrals: Ed Walsh MD [Primary Care Provider] - Stand Alone Forms: MyHealth Info Instructions
[2025-03-16 16:43] LABS: PCR FLU A Negative PCR FLU A (Negative); PCR FLU B Negative PCR FLU B (Negative); PCR RSV Negative PCR RSV (Negative); SARS PCR* Negative SARS-CoV-2 (Negative)
[2025-03-16] MEDS: 0.9 % SODIUM CHLORIDE 500 ML 500 ML 1000 ML IV (17:12)
[2025-03-16 18:05] LABS: Appearance Urine Clear (Clear); Bilirubin Urine Negative (Negative); Blood Urine Trace-intact (Negative); Color Urine Yellow (Yellow); Glucose Urine Negative (Negative); Ketones Urine Negative (Negative); Protein Urine Negative (Negative); Specific Gravity Urine 1.015 (1.000-1.030)
[2025-03-16 18:06] LABS: Amorphous Sediment Urine Moderate; Bacteria Urine Moderate; Leukocyte Esterase Urine Negative (Negative); Nitrite Urine Positive (Negative); RBC Urine 0-2 (0-2); Urobilinogen Urine 0.2 (0.2-1.0); WBC Urine 0-2 (0-5)
--- OUTSIDE RECORDS SUMMARY | 2025-03-16 18:26 | XMS_ITS | Clinical Summary ---
Author Organization [facility] Address [address] [place] [id number] Care Team Providers Care Application Systems Engineer Name Role Phone Ed Walsh MD Primary Care Provider [phone] Social History Tobacco Use Types Packs/Day Years Used Date Smoking Tobacco: Never Assessed Comments Unknown Sex and Gender Information Value Date Recorded Sex Assigned at Not on file Legal Sex Female 3:30 AM [employer] Gender Identity Not on file Sexual Orientation Not on file Plan of Treatment Not on file Insurance [facility] MEDICARE [facility] [place] MEDICARE Care Teams Application Systems Engineer Relationship Specialty Start Date End Date Ed Walsh MD [facility] [address] [place] [address] PCP - General Family Medicine 09/20/24
--- OUTSIDE RECORDS SUMMARY | 2025-03-16 18:27 | XMS_ITS | Clinical Summary ---
Author Organization [employer] [facility] Address [facility] [place] [address] Care Team Providers Care Chief Station Engineer Name Role Phone Autumn Raphael Unavailable [phone] Ed Walsh MD Primary Care Provider + [facility] Unavailable [phone] Allergies No known active allergies Medications cetirizine (ZyrTEC) 10 mg tablet Take 10 mg by mouth once daily if needed. Active hospital bedIndications:En cephalopathy acute,Intracrania l hemorrhage (HC) Hospital bed with mattress and full rails. Semi-electric bed. Length of need 6 months. Bed solar engineer:no 1 Each 01/15/20 Active commodeIndication s:Encephalopathy acute,Nontraumati [...] 24 hrs. 100 Tablet 5 5:12 PM RECREATIONAL RESORT MANAGER 01/17/20 25 Active lidocaine 4 % topical [...] health clinician.] 30 Capsule 5 5:12 PM RECREATIONAL RESORT MANAGER 01/17/20 25 025 Discontin ued(*Dorota ent states no longer taking) OLANzapine (ZYPREXA ZYDIS) 5 mg disintegrating tabletIndications :Encephalopathy acute,Intracrania l hemorrhage (HC) [The details of the medication are not available because there are pending changes by a home health clinician.] 30 Tablet 5 5:12 PM RECREATIONAL RESORT MANAGER 01/17/20 025 Discontin ued(*Medi cation adjustmen t) propranoloL (INDERAL) 20 mg tabletIndications :Encephalopathy acute,Hypertensio n [The details of the medication are not available because there are pending changes by a home health clinician.] 60 Tablet 5 5:12 PM RECREATIONAL RESORT MANAGER 01/17/20 025 Discontin ued(*Med complete/ Regimen complete/ Level of care change) amLODIPine (NORVASC) 2.5 mg tabletIndications :Intracranial hemorrhage (HC),Hypertension [The details of the medication are not available because there are pending changes by a home health clinician.] 60 Tablet 5 1:05 PM RECREATIONAL RESORT MANAGER 01/20/20 025 Additional Information Patient not taking.Reason: See Comment (discontinued per hospital med list), Informant: Patient's Med List, Reported on 02/03/2025 mirtazapine (REMERON) 15 mg tabletIndications :Encephalopathy acute,Intracrania l hemorrhage (HC) Take 1 Tablet (15 mg) by mouth at bedtime. 30 Tablet 5 1:05 PM RECREATIONAL RESORT MANAGER 01/20/20 025 sodium chloride 1,000 mg soluble tabletIndications :Hyponatremia Take 1 Tablet (1,000 mg) by mouth two times daily. 60 Tablet 5 1:05 PM RECREATIONAL RESORT MANAGER 01/20/20 025 Active Problems Problem Noted Date [...] 03/13/2025 2:00 PM CDT Home Care Visit [facility] [address] [place] [phone] Lisha Bautista RN SN - HOME VISIT 03/13/2025 10:30 AM CDT Home Care Visit [facility] [address] [place] [phone] Toya Ley SHOWROOM SALES CONSULTANT - HOME VISIT 03/13/2025 Home Care Visit [facility] [address] [place] [phone] Gracie Fernández, COATING MIXER TENDER COATING MIXER TENDER - DISCIPLINE DISCHARGE 03/11/2025 10:00 AM CDT Home Care Visit [facility] [address] [place] [address] [phone] Sury Silva, OT OT - DISCIPLINE DISCHARGE 03/11/2025 9:00 AM CDT Home Care Visit [facility] [address] [place] [phone] David Fishman, PT PT - HOME VISIT 03/10/2025 Home Care Visit [facility] [address] [place] [phone] Harini Ramos LISW CLINICAL FACULTY - CASE COMMUNICATION 03/07/2025 12:30 PM CDT Home Care Visit [facility] [address] [place] [phone] Lisha Bautista RN SN - HOME VISIT 03/07/2025 Home Care Visit [facility] [address] [place] [phone] aHrini Ramos LISW CARE COORDINATION 03/07/2025 Orders Only [facility] [address] [place] [address] Lisha Bautista RN <No scans attached> 03/07/2025 Home Care Visit [facility] [address] [place] [phone] Harini Ramos LISW CLINICAL FACULTY - CASE COMMUNICATION 03/06/2025 2:00 PM CDT Home Care Visit [facility] [address] [place] [phone] Sury Silva, OT OT - REASSESSMENT 03/06/2025 11:45 AM CDT Home Care Visit [facility] [address] [place] [phone] Toya Ley SHOWROOM SALES CONSULTANT - HOME VISIT 03/06/2025 9:30 AM CDT Home Care Visit [facility] [address] [place] [phone] David Fishman, PT PT - REASSESSMENT 03/05/2025 10:00 AM CDT Home Care Visit [facility] [address] [place] [phone] Harini Ramos LISW CLINICAL FACULTY - HOME VISIT 03/05/2025 Home Care Visit [facility] [address] [place] [phone] David Fishman, PT CARE COORDINATION 03/05/2025 Home Care Visit [facility] [address] [place] [phone] Kathy Jaffe, LOVE CARE COORDINATION 03/04/2025 9:45 AM CDT Home Care Visit [facility] [address] [place] [phone] David Fishman, PT PT - HOME VISIT 03/04/2025 Home Care Visit [facility] [address] [place] [phone] Gracie Fernández, COATING MIXER TENDER COATING MIXER TENDER - HOME VISIT 02/27/2025 11:45 AM CDT Home Care Visit [facility] [address] [facility] [place] [phone] Toya Ley SHOWROOM SALES CONSULTANT - HOME VISIT 02/27/2025 10:30 AM CDT Home Care Visit [facility] [address] [facility] [place] [phone] Lisha Bautista, DANIEL SN - HOME VISIT 02/27/2025 Home Care Visit [facility] [address] [place] [phone] Harini Ramos LISW CARE COORDINATION 02/26/2025 10:30 AM CDT Home Care Visit [facility] [address] [place] [phone] Kathy Jaffe COTA OT - HOME VISIT 02/25/2025 9:00 AM CDT Home Care Visit [facility] [address] [place] [phone] David Fishman, PT PT - HOME VISIT 02/24/2025 12:00 PM CDT Home Care Visit [facility] [address] [place] [phone] Gracie Fernández, COATING MIXER TENDER COATING MIXER TENDER - HOME VISIT 02/21/2025 10:00 AM CDT Home Care Visit [facility] [address] [place] [phone] Lisha Bautista, RN SN - HOME VISIT 02/21/2025 Home Care Visit [facility] [address] [place] [phone] Harini Ramos LISW CLINICAL FACULTY - CASE COMMUNICATION 02/20/2025 3:00 PM CDT Home Care Visit [facility] [address] [place] [phone] David Fishman, PT PT - HOME VISIT 02/20/2025 11:45 AM CDT Home Care Visit [facility] [address] [place] [phone] Toya Ley SHOWROOM SALES CONSULTANT - HOME VISIT 02/20/2025 10:00 AM CDT Home Care Visit [facility] [address] [place] [phone] Gracie Fernández, COATING MIXER TENDER COATING MIXER TENDER - INITIAL ASSESSMENT 02/19/2025 10:30 AM CDT Home Care Visit [facility] [address] [place] [phone] Kathy Jaffe LOVE OT - HOME VISIT 02/18/2025 10:45 AM CDT Home Care Visit [facility] [address] [place] [phone] David Fishman, PT PT - HOME VISIT 02/14/2025 2:00 PM CDT Home Care Visit [facility] [address] [place] [phone] David Fishman, PT PT - HOME VISIT 02/13/2025 1:00 PM CDT Home Care Visit [facility] [address] [place] [phone] Christelle Brock, HEALTH SAFETY ENGINEER HEALTH SAFETY ENGINEER - HOME VISIT 02/13/2025 11:30 AM CDT Home Care Visit [facility] [address] [place] [phone] Toya Ley SHOWROOM SALES CONSULTANT - HOME VISIT 02/11/2025 9:00 AM CDT Home Care Visit [facility] [address] [place] [phone] Kathy Jaffe LOVE OT - HOME VISIT 02/11/2025 Home Care Visit [facility] [address] [place] [phone] Lisha Bautista, DANIEL CARE COORDINATION 02/11/2025 Telephone [facility] [address] [phone] Inge Barksdale NP Hospital F/U 02/10/2025 3:00 PM CDT Home Care Visit [facility] [address] [place] [phone] Harini Ramos LISW CLINICAL FACULTY - INITIAL ASSESSMENT 02/10/2025 10:45 AM CDT Home Care Visit [facility] [address] [place] [phone] David Fishman, PT PT - HOME VISIT 02/07/2025 11:30 AM CDT Home Care Visit [facility] [address] [place] [phone] Silvana Victor, OT OT - INITIAL ASSESSMENT 02/07/2025 9:00 AM CDT Home Care Visit [facility] [address] [place] [phone] David Fishman, PT PT - HOME VISIT 02/07/2025 Home Care Visit [facility] [address] [place] [phone] David Fishman, PT CARE COORDINATION 02/06/2025 11:45 AM CDT Home Care Visit [facility] [address] [place] [phone] Toya Ley SHOWROOM SALES CONSULTANT - HOME VISIT 02/05/2025 10:30 AM CDT Home Care Visit [facility] [address] [place] [phone] David Fishman, PT PT - INITIAL ASSESSMENT 02/04/2025 Nurse Triage [facility] [address] [place] [address] Ed Walsh MD Low Blood Pressure; Medication Management 02/04/2025 Home Care Visit [facility] [address] [place] [phone] Harini Ramos LISW CLINICAL FACULTY - CASE COMMUNICATION 02/04/2025 Home Care Visit [facility] [address] [place] [phone] Lily Kamara, PT CARE COORDINATION 02/03/2025 11:00 AM CDT Home Care Visit [facility] [address] [place] [address], [place] [phone] Lisha Bautista, DANIEL MCDONNELL - OASIS RESUMPTION OF CARE 01/31/2025 Home Care Visit [facility] [address] [place] [address], [place] [phone] Lisha Bautista, DANIEL CARE COORDINATION 01/28/2025 Home Care Visit [facility] [address] [place] [phone] Lisha Bautista, DANIEL MCDONNELL - OASIS TRANSFER 01/28/2025 Home Care Visit [facility] [address] [place] [address], [place] [phone] Oxana Esqueda RN CARE COORDINATION 01/27/2025 Home Care Visit [facility] [address] [place] [phone] Lisha Bautista, NIGHT TIME BABYSITTER NOTE 01/24/2025 1:30 PM RECREATIONAL RESORT MANAGER Home Care Visit [facility] [address] [place] [address], [place] [phone] David Fishman, PT PT - INITIAL ASSESSMENT 01/23/2025 11:15 AM RECREATIONAL RESORT MANAGER Home Care Visit [facility] [address] [place] [phone] Sury Silva, OT OT - INITIAL ASSESSMENT 01/23/2025 Home Care Visit [facility] [id number] [place] [phone] Oxana Esqueda RN CARE COORDINATION 01/23/2025 Nurse Triage [facility] [address] [place] [address] Ed Walsh MD [facility] 01/21/2025 7:00 AM RECREATIONAL RESORT MANAGER Home Care Visit [facility] [address] [place] [phone] Shereen Alvarez, DANIEL MCDONNELL - OASIS START OF CARE 01/21/2025 Telephone [facility] [address] [place] [phone] Shereen Alvarez, photo lab specialist (Need ongoing orders for HH) 01/21/2025 Plan of Care Documentation [facility] [address] [facility] [place] [phone] 01/19/2025 Travel 12/25/2024 9:26 PM RECREATIONAL RESORT MANAGER - 01/20/2025 12:00 PM RECREATIONAL RESORT MANAGER Hospital Encounter [facility] [address] [place] [address] Luis, Helena Qureshi, DO Holm, MD Mariah Bains, MD Scott Landeros, MD Yoav Salamanca, MD Abdelrahman Pérez, Ed Hilliard MD [facility], [facility] Hospitalists Of Encephalopathy acute (Primary [...] on file Legal Sex Female 6:04 AM RECREATIONAL RESORT MANAGER Gender Identity Not on file Sexual Orientation [...] 03/18/2025 9:45 AM CDT Home Care Visit [facility] [address] [place] [phone] David Fishman, PT [address] [place] [address] 03/20/2025 10:30 AM CDT Home Care Visit [facility] [address] [place] [phone] Toya Ley [address] [place] [address] 03/20/2025 12:00 PM CDT Appointment [facility] [address] [place] [phone] Lisha Bautista, RN Health Maintenance Due Date [...] Comments SODIUM Early AM 01/19/2025 6:37 AM RECREATIONAL RESORT MANAGER HEMOGLOBIN Early AM 01/19/2025 6:37 AM RECREATIONAL RESORT MANAGER XR CHEST 1 VIEW PORTABLE Routine 01/16/2025 11:15 AM RECREATIONAL RESORT MANAGER SODIUM Early AM 01/16/2025 10:52 AM RECREATIONAL RESORT MANAGER ALT (SGPT) Early AM 01/13/2025 10:58 AM RECREATIONAL RESORT MANAGER AST (SGOT) Early AM 01/13/2025 10:58 AM RECREATIONAL RESORT MANAGER ALK PHOSPHATASE Early AM 01/13/2025 10:58 AM RECREATIONAL RESORT MANAGER AMMONIA Early AM 01/13/2025 10:58 AM RECREATIONAL RESORT MANAGER CREATININE Early AM 01/13/2025 10:58 AM RECREATIONAL RESORT MANAGER POTASSIUM Early AM 01/13/2025 10:58 AM RECREATIONAL RESORT MANAGER SODIUM Early AM 01/13/2025 10:58 AM RECREATIONAL RESORT MANAGER CBC W PLT NO DIFF Early AM 01/13/2025 10: 58 AM RECREATIONAL RESORT MANAGER SODIUM Early AM 01/11/2025 6:45 AM RECREATIONAL RESORT MANAGER HEPATIC FUNCTION PANEL EDILIA 6:46 AM RECREATIONAL RESORT MANAGER SODIUM Early AM 01/10/2025 6:46 AM RECREATIONAL RESORT MANAGER PHOSPHORUS Early AM 01/10/2025 6:46 AM RECREATIONAL RESORT MANAGER MAGNESIUM Early AM 01/10/2025 6:46 AM RECREATIONAL RESORT MANAGER POTASSIUM Early AM 01/10/2025 6:46 AM RECREATIONAL RESORT MANAGER SODIUM Today 01/09/2025 4:12 PM RECREATIONAL RESORT MANAGER PHOSPHORUS EDILIA 01/09/2025 6:17 AM RECREATIONAL RESORT MANAGER POTASSIUM EDILIA 01/09/2025 6:17 AM RECREATIONAL RESORT MANAGER MAGNESIUM EDILIA 01/09/2025 6:17 AM RECREATIONAL RESORT MANAGER CBC W PLT NO DIFF Early AM 01/09/2025 6:1 7 AM RECREATIONAL RESORT MANAGER BASIC METABOLIC PANEL Early AM 01/09/2025 6:17 AM RECREATIONAL RESORT MANAGER SODIUM EDILIA 01/08/2025 1:24 PM RECREATIONAL RESORT MANAGER POTASSIUM Timed 01/08/2025 1:24 PM RECREATIONAL RESORT MANAGER POTASSIUM Today 01/08/2025 8:38 AM RECREATIONAL RESORT MANAGER SODIUM Timed 01/08/2025 8:38 AM RECREATIONAL RESORT MANAGER CBC W PLT NO DIFF Early AM 01/08/2025 6:2 4 AM RECREATIONAL RESORT MANAGER BASIC METABOLIC PANEL Early AM 01/08/2025 6:24 AM RECREATIONAL RESORT MANAGER SODIUM Timed 01/08/2025 2:44 AM RECREATIONAL RESORT MANAGER SODIUM Timed 01/07/2025 9:37 PM RECREATIONAL RESORT MANAGER SODIUM Timed 01/07/2025 2:23 PM RECREATIONAL RESORT MANAGER SODIUM Timed 01/07/2025 8:31 AM RECREATIONAL RESORT MANAGER LD,TOTAL Early AM 01/07/2025 6:31 AM RECREATIONAL RESORT MANAGER HEMOGLOBIN Early AM 01/07/2025 6:31 AM RECREATIONAL RESORT MANAGER SODIUM Timed 01/07/2025 3:35 AM RECREATIONAL RESORT MANAGER SODIUM Timed 01/06/2025 9:24 PM RECREATIONAL RESORT MANAGER HAPTOGLOBIN EDILIA 01/06/2025 4:02 PM RECREATIONAL RESORT MANAGER SODIUM Timed 01/06/2025 4:02 PM RECREATIONAL RESORT MANAGER SODIUM Timed 01/06/2025 9:50 AM RECREATIONAL RESORT MANAGER RETICULOCYTES EDILIA 01/06/2025 4:16 AM RECREATIONAL RESORT MANAGER WHITE BLOOD COUNT Early AM 01/06/2025 4:1 6 AM RECREATIONAL RESORT MANAGER PLATELET COUNT Early AM 01/06/2025 4:16 AM RECREATIONAL RESORT MANAGER HEMOGLOBIN Early AM 01/06/2025 4:16 AM RECREATIONAL RESORT MANAGER SODIUM Timed 01/06/2025 4:16 AM RECREATIONAL RESORT MANAGER SODIUM Timed 01/05/2025 9:08 PM RECREATIONAL RESORT MANAGER SODIUM Timed 01/05/2025 3:18 PM RECREATIONAL RESORT MANAGER US VENOUS LOWER EXTREMITY BILATERAL Routine 01/05/2025 10:07 AM RECREATIONAL RESORT MANAGER CREATININE EDILIA 01/05/2025 9:30 AM RECREATIONAL RESORT MANAGER ELECTROLYTE PANEL EDILIA 01/05/2025 9:3 0 AM RECREATIONAL RESORT MANAGER PROCALCITONIN Today 01/05/2025 9:30 AM RECREATIONAL RESORT MANAGER WHITE BLOOD COUNT Today 01/05/2025 9:3 0 AM RECREATIONAL RESORT MANAGER SODIUM Timed 01/05/2025 9:30 AM RECREATIONAL RESORT MANAGER XR CHEST 1 VIEW PORTABLE Routine 01/05/2025 9:25 AM RECREATIONAL RESORT MANAGER GLUCOSE METER Timed 01/05/2025 7:55 AM RECREATIONAL RESORT MANAGER SODIUM Timed 01/05/2025 3:04 AM RECREATIONAL RESORT MANAGER GLUCOSE METER Timed 01/05/2025 1:50 AM RECREATIONAL RESORT MANAGER SODIUM Timed 01/04/2025 9:11 PM RECREATIONAL RESORT MANAGER GLUCOSE METER Timed 01/04/2025 6:16 PM RECREATIONAL RESORT MANAGER GLUCOSE METER Timed 01/04/2025 3:22 PM RECREATIONAL RESORT MANAGER SODIUM Timed 01/04/2025 3:05 PM RECREATIONAL RESORT MANAGER OSMOLALITY,URINE Today 01/04/2025 11:0 2 AM RECREATIONAL RESORT MANAGER OSMOLALITY EDILIA 01/04/2025 11:02 AM RECREATIONAL RESORT MANAGER HEPATIC FUNCTION PANEL EDILIA 11:02 AM RECREATIONAL RESORT MANAGER SODIUM,RANDOM URINE Today 01/04/2025 1 1:02 AM RECREATIONAL RESORT MANAGER SODIUM Timed 01/04/2025 11:02 AM RECREATIONAL RESORT MANAGER SODIUM Timed 01/04/2025 5:09 AM RECREATIONAL RESORT MANAGER GLUCOSE METER Timed 01/04/2025 4:53 AM RECREATIONAL RESORT MANAGER SODIUM Timed 01/03/2025 11:21 PM RECREATIONAL RESORT MANAGER SODIUM Timed 01/03/2025 6:27 PM RECREATIONAL RESORT MANAGER GLUCOSE METER Timed 01/03/2025 5:[address] HEAD BRAIN WO EDILIA 01/03/2025 4:02 PM RECREATIONAL RESORT MANAGER SODIUM Timed 01/03/2025 12:54 PM RECREATIONAL RESORT MANAGER GLUCOSE METER Timed 01/03/2025 12:32 PM RECREATIONAL RESORT MANAGER ALK PHOSPHATASE Early AM 01/03/2025 5:49 AM RECREATIONAL RESORT MANAGER AST (SGOT) Early AM 01/03/2025 5:49 AM RECREATIONAL RESORT MANAGER ALT (SGPT) Early AM 01/03/2025 5:49 AM RECREATIONAL RESORT MANAGER HEMOGLOBIN Early AM 01/03/2025 5:49 AM RECREATIONAL RESORT MANAGER SODIUM Timed 01/03/2025 5:49 AM RECREATIONAL RESORT MANAGER GLUCOSE METER Timed 01/03/2025 4:53 AM RECREATIONAL RESORT MANAGER SODIUM Timed 01/02/2025 11:18 PM RECREATIONAL RESORT MANAGER GLUCOSE METER Timed 01/02/2025 10:32 PM RECREATIONAL RESORT MANAGER SODIUM Timed 01/02/2025 5:54 PM RECREATIONAL RESORT MANAGER SODIUM Timed 01/02/2025 11:27 AM RECREATIONAL RESORT MANAGER PLATELET COUNT Early AM 01/02/2025 7:44 AM RECREATIONAL RESORT MANAGER WHITE BLOOD COUNT Early AM 01/02/2025 7:4 4 AM RECREATIONAL RESORT MANAGER HEMOGLOBIN Early AM 01/02/2025 7:44 AM RECREATIONAL RESORT MANAGER BASIC METABOLIC PANEL Early AM 01/02/2025 6:35 AM RECREATIONAL RESORT MANAGER SODIUM Timed 01/02/2025 6:35 AM RECREATIONAL RESORT MANAGER GLUCOSE METER Timed 01/02/2025 3:59 AM RECREATIONAL RESORT MANAGER SODIUM Timed 01/02/2025 1:00 AM RECREATIONAL RESORT MANAGER GLUCOSE METER Timed 01/01/2025 9:27 PM RECREATIONAL RESORT MANAGER GLUCOSE METER Timed 01/01/2025 6:34 PM RECREATIONAL RESORT MANAGER INSERT PICC LINE Routine 01/01/2025 5:41 PM RECREATIONAL RESORT MANAGER SODIUM Timed 01/01/2025 4:37 PM RECREATIONAL RESORT MANAGER CORTISOL TOTAL Timed 01/01/2025 4:37 PM RECREATIONAL RESORT MANAGER GLUCOSE METER Timed 01/01/2025 12:[address] HEAD BRAIN WO STAT 01/01/2025 11:5 2 AM RECREATIONAL RESORT MANAGER TSH EDILIA 01/01/2025 11:17 AM RECREATIONAL RESORT MANAGER SODIUM Timed 01/01/2025 11:17 AM RECREATIONAL RESORT MANAGER OSMOLALITY,URINE Today 01/01/2025 9:39 AM RECREATIONAL RESORT MANAGER SODIUM,RANDOM URINE Today 01/01/2025 9 :39 AM RECREATIONAL RESORT MANAGER BASIC METABOLIC PANEL Early AM 01/01/2025 7:13 AM RECREATIONAL RESORT MANAGER WHITE BLOOD COUNT Early AM 01/01/2025 7:1 3 AM RECREATIONAL RESORT MANAGER GLUCOSE METER Timed 01/01/2025 6:06 AM RECREATIONAL RESORT MANAGER GLUCOSE METER Timed 12/31/2024 10:[address] CHEST ABDOMEN PELVIS W Routine 12/31/2024 4:48 PM RECREATIONAL RESORT MANAGER GLUCOSE METER Timed 12/31/2024 2:17 PM RECREATIONAL RESORT MANAGER BLOOD CULTURE Today 12/31/2024 12:29 PM RECREATIONAL RESORT MANAGER BLOOD CULTURE Today 12/31/2024 12:29 PM RECREATIONAL RESORT MANAGER GLUCOSE METER Timed 12/31/2024 9:47 AM RECREATIONAL RESORT MANAGER PHOSPHORUS Early AM 12/31/2024 6:32 AM RECREATIONAL RESORT MANAGER POTASSIUM Early AM 12/31/2024 6:32 AM RECREATIONAL RESORT MANAGER WHITE BLOOD COUNT Early AM 12/31/2024 6:3 2 AM RECREATIONAL RESORT MANAGER GLUCOSE METER Timed 12/31/2024 4:24 AM RECREATIONAL RESORT MANAGER GLUCOSE METER Timed 12/30/2024 9:13 PM RECREATIONAL RESORT MANAGER GLUCOSE METER Timed 12/30/2024 5:08 PM RECREATIONAL RESORT MANAGER COVID/FLU/RSV PANEL Today 12/30/2024 1 0:17 AM RECREATIONAL RESORT MANAGER BASIC METABOLIC PANEL Early AM 12/30/2024 8:51 AM RECREATIONAL RESORT MANAGER CBC W PLT NO DIFF Early AM 12/30/2024 8:5 1 AM RECREATIONAL RESORT MANAGER PHOSPHORUS Early AM 12/30/2024 8:51 AM RECREATIONAL RESORT MANAGER MAGNESIUM Early AM 12/30/2024 8:51 AM RECREATIONAL RESORT MANAGER GLUCOSE METER Timed 12/30/2024 4:04 AM RECREATIONAL RESORT MANAGER GLUCOSE METER Timed 12/29/2024 9:15 PM RECREATIONAL RESORT MANAGER GLUCOSE METER Timed 12/29/2024 3:24 PM RECREATIONAL RESORT MANAGER URINALYSIS MICROSCOPIC Timed 2:21 PM RECREATIONAL RESORT MANAGER UA W/ SEDIMENT EXAM REFLEXED PER CRITERIA Today 12/29/2024 2:21 PM RECREATIONAL RESORT MANAGER XR CHEST 1 VIEW PORTABLE Routine 12/29/2024 2:14 PM RECREATIONAL RESORT MANAGER PHOSPHORUS Today 12/29/2024 11:28 AM RECREATIONAL RESORT MANAGER GLUCOSE METER Timed 12/29/2024 9:30 AM RECREATIONAL RESORT MANAGER POTASSIUM Early AM 12/29/2024 6:43 AM RECREATIONAL RESORT MANAGER MAGNESIUM Early AM 12/29/2024 6:43 [address]CRE[address] HEAD BRAIN WO Routine 12/29/2024 4:23 AM RECREATIONAL RESORT MANAGER GLUCOSE METER Timed 12/29/2024 2:55 AM RECREATIONAL RESORT MANAGER XR ABDOMEN 1 VIEW PORTABLE STAT 12/28/2024 6:33 PM RECREATIONAL RESORT MANAGER GLUCOSE METER Timed 12/28/2024 10:47 AM RECREATIONAL RESORT MANAGER PHOSPHORUS Timed 12/28/2024 9:40 AM RECREATIONAL RESORT MANAGER SCAN-CARDIAC STRIP 12/28/2024 7: 30 AM RECREATIONAL RESORT MANAGER GLUCOSE METER Timed 12/28/2024 5:13 AM RECREATIONAL RESORT MANAGER CBC W PLT NO DIFF Early AM 12/28/2024 4:2 0 AM RECREATIONAL RESORT MANAGER BASIC METABOLIC PANEL Early AM 12/28/2024 4:20 AM RECREATIONAL RESORT MANAGER PHOSPHORUS Early AM 12/28/2024 4:20 AM RECREATIONAL RESORT MANAGER MAGNESIUM Early AM 12/28/2024 4:20 AM RECREATIONAL RESORT MANAGER SCAN-RADIOLOGY REPORT 12/28/2024 12:00 AM RECREATIONAL RESORT MANAGER GLUCOSE METER Timed 12/27/2024 9:12 PM RECREATIONAL RESORT MANAGER GLUCOSE METER Timed 12/27/2024 2:31 PM RECREATIONAL RESORT MANAGER SODIUM Timed 12/27/2024 1:51 PM RECREATIONAL RESORT MANAGER GLUCOSE METER Timed 12/27/2024 9:06 AM RECREATIONAL RESORT MANAGER CBC W PLT NO DIFF Early AM 12/27/2024 4:5 9 AM RECREATIONAL RESORT MANAGER BASIC METABOLIC PANEL Early AM 12/27/2024 4:59 AM RECREATIONAL RESORT MANAGER PHOSPHORUS Early AM 12/27/2024 4:59 AM RECREATIONAL RESORT MANAGER MAGNESIUM Early AM 12/27/2024 4:59 AM RECREATIONAL RESORT MANAGER GLUCOSE METER Timed 12/27/2024 4:21 AM RECREATIONAL RESORT MANAGER GLUCOSE METER Timed 12/26/2024 10:07 PM RECREATIONAL RESORT MANAGER MR HEAD BRAIN WO Routine 12/26/2024 4:45 PM RECREATIONAL RESORT MANAGER GLUCOSE METER Timed 12/26/2024 2:52 PM RECREATIONAL RESORT MANAGER SCAN CORRESP-IMAGING 12/26/2024 10:44 AM RECREATIONAL RESORT MANAGER GLUCOSE METER Timed 12/26/2024 8:27 AM RECREATIONAL RESORT MANAGER UA W/ SEDIMENT EXAM REFLEXED PER CRITERIA Today 12/26/2024 6:30 [address]CRE[address]ORT [address] CT HEAD BRAIN WO Routine 12/26/2024 6:12 AM RECREATIONAL RESORT MANAGER WHITE BLOOD COUNT Early AM 12/26/2024 4:5 1 AM RECREATIONAL RESORT MANAGER PLATELET COUNT Early AM 12/26/2024 4:51 AM RECREATIONAL RESORT MANAGER HEMOGLOBIN Early AM 12/26/2024 4:51 AM RECREATIONAL RESORT MANAGER BASIC METABOLIC PANEL Early AM 12/26/2024 4:51 AM RECREATIONAL RESORT MANAGER PHOSPHORUS Early AM 12/26/2024 4:51 AM RECREATIONAL RESORT MANAGER MAGNESIUM Early AM 12/26/2024 4:[address] HEAD BRAIN WO Timed 12/26/2024 12:5 1 AM RECREATIONAL RESORT MANAGER SCAN-CARDIAC STRIP 12/25/2024 10 :48 PM RECREATIONAL RESORT MANAGER SCAN-CARDIAC STRIP 12/25/2024 10 :00 PM RECREATIONAL RESORT MANAGER CBC WITH AUTO DIFFERENTIAL STAT 12/25/2024 9:51 PM RECREATIONAL RESORT MANAGER PROTIME-INR STAT 12/25/2024 9:51 PM RECREATIONAL RESORT MANAGER HEPATIC FUNCTION PANEL STAT 9:51 PM RECREATIONAL RESORT MANAGER PHOSPHORUS STAT 12/25/2024 9:51 PM RECREATIONAL RESORT MANAGER MAGNESIUM STAT 12/25/2024 9:51 PM RECREATIONAL RESORT MANAGER CBC WITH AUTO DIFFERENTIAL STAT 12/25/2024 9:51 PM RECREATIONAL RESORT MANAGER BASIC METABOLIC PANEL STAT 12/25/2024 9:51 PM RECREATIONAL RESORT MANAGER EKG 12 LEAD STAT 12/25/2024 9:45 PM RECREATIONAL RESORT MANAGER GLUCOSE METER Timed 12/25/2024 9:23 PM RECREATIONAL RESORT MANAGER from Last 3 Months Results * (ABNORMAL) HEMOGLOBIN (01/19/2025 6:37 AM RECREATIONAL RESORT MANAGER) Only the most recent of6 resultswithin the time period is included. HEMOGLOBIN 9.5(L) 12.0 - 16.0 g/dL 01/19/2025 7:41 AM RECREATIONAL RESORT MANAGER [facility] MCV 91 80 - 100 fL 01/19/2025 7:41 AM RECREATIONAL RESORT MANAGER [facility] Blood BLOOD SPECIMEN / Unknown Venipuncture / Unknown 01/19/2025 6:37 AM RECREATIONAL RESORT MANAGER 01/19/2025 7:27 AM RECREATIONAL RESORT MANAGER Ed Quick MD HEMATOLOGY Final Result Performing Organization Address City/[facility] Co de Phone Number [facility] [address] [address], [place] * SODIUM (01/19/2025 6:37 AM RECREATIONAL RESORT MANAGER) Only the most recent of37 resultswithin the time period is included. SODIUM 144 136 - 145 mmol/L 01/19/2025 7:45 AM RECREATIONAL RESORT MANAGER [facility] Blood BLOOD SPECIMEN / Unknown Venipuncture / Unknown 01/19/2025 6:37 AM RECREATIONAL RESORT MANAGER 01/19/2025 7:28 AM RECREATIONAL RESORT MANAGER Ed Quick MD CHEMISTRY Final Result Performing Organization Address City/[facility] Co de Phone Number [facility] [address] [address], [place] * XR Chest 1 view portable (01/16/2025 11:15 AM RECREATIONAL RESORT MANAGER) Only the most recent of3 resultswithin the time period is included. Anatomical Region Laterality Modality HEART, THORAX, CHEST Digital Rad iography 01/16/2025 11:3 5 AM RECREATIONAL RESORT MANAGER Impressions 01/16/2025 11:35 AM RECREATIONAL RESORT MANAGER Negative chest Dictated by José Funk MD @ Jan 16 2025 11:35AM (Electronically Signed) [email or web address] Narrative 01/16/2025 11:35 AM RECREATIONAL RESORT MANAGER For Patients: As a result of the [...] @ Jan 16 2025 11:35AM (Electronically Signed) [email or web address] Samina Cason MD GENERAL IMAGING Final Resul t * (ABNORMAL) CBC no diff AM (01/13/2025 10:58 AM RECREATIONAL RESORT MANAGER) Only the most recent of6 resultswithin the time period is included. WHITE BLOOD COUNT 6.3 4.5 - 11.0 thou/cu mm 01/13/2025 11:12 AM RECREATIONAL RESORT MANAGER [facility] RED BLOOD COUNT 3.10(L) 4.00 - 5.20 mil/cu mm 01/13/2025 11:12 AM RECREATIONAL RESORT MANAGER [facility] HEMOGLOBIN 9.1(L) 12.0 - [...] Unknown Venipuncture / Unknown 01/13/2025 10:58 AM RECREATIONAL RESORT MANAGER 01/13/2025 11:06 AM [facility] Ed Chavez MD HEMATOLOGY Final R esult [facility] [address] [place] [address], * POTASSIUM (01/13/2025 10:58 AM [facility]) Only the most recent of7 resultswithin the time period is included. POTASSIUM 3.9 3.5 - 5.1 mmol/L 01/13/2025 11:37 AM [facility] Blood BLOOD SPECIMEN / Unknown Venipuncture / Unknown 01/13/2025 10:58 AM RECREATIONAL RESORT MANAGER 01/13/2025 11:06 AM RECREATIONAL RESORT MANAGER Ed Chavez MD CHEMISTRY Final R [facility] Performing Organization Address City/[facility]/ZIP Co de Phone Number [facility] [address] [address], [place] * CREATININE (01/13/2025 10:58 AM RECREATIONAL RESORT MANAGER) Only the most recent of2 resultswithin the time period is included. eGFR >90 >90 mL/min/1.7 3m2 01/13/2025 11:37 AM RECREATIONAL RESORT MANAGER [facility] Comment:As of 2022, eG FR is calculated by the CKD-EPI creatinine equation without race adjustment. eGFR can be influenced by muscle mass, exercise, and diet. The reported eGFR is an estimation only and is only applicable if the renal function is stable. CREATININE 0.59 0.50 - 0.90 mg/dL 01/13/2025 11:37 AM RECREATIONAL RESORT MANAGER [facility] Blood BLOOD SPECIMEN / Unknown Venipuncture / Unknown 01/13/2025 10:58 AM RECREATIONAL RESORT MANAGER 01/13/2025 11:06 AM RECREATIONAL RESORT MANAGER Ed Chavez MD CHEMISTRY Final R [facility] Performing Organization Address [facility] Co de Phone Number [facility] [address] [address], [place] * (ABNORMAL) ALT AM (01/13/2025 10:58 AM RECREATIONAL RESORT MANAGER) Only the most recent of2 resultswithin the time period is included. ALT (SGPT) 45(H) 10 - 35 IU/L 01/13/2025 11:37 AM RECREATIONAL RESORT MANAGER [facility] Blood BLOOD SPECIMEN / Unknown Venipuncture / Unknown 01/13/2025 10:58 AM RECREATIONAL RESORT MANAGER 01/13/2025 11:06 AM RECREATIONAL RESORT MANAGER Ed Chavez MD CHEMISTRY Final R esult Performing Organization Address City/State/[facility] de Phone Number [facility] [address] [address], [place] * AST AM (01/13/2025 10:58 AM RECREATIONAL RESORT MANAGER) Only the most recent of2 resultswithin the time period is included. AST (SGOT) 27 10 - 35 IU/L 01/13/2025 11:37 AM RECREATIONAL RESORT MANAGER [facility] Blood BLOOD SPECIMEN / Unknown Venipuncture / Unknown 01/13/2025 10:58 AM RECREATIONAL RESORT MANAGER 01/13/2025 11:06 AM RECREATIONAL RESORT MANAGER Ed Chavez MD CHEMISTRY Final R [facility] Performing Organization Address [facility] de Phone Number [facility] [address] [address], [place] * (ABNORMAL) Alk phosphatase AM (01/13/2025 10:58 AM RECREATIONAL RESORT MANAGER) Only the most recent of2 resultswithin the time period is included. ALK PHOSPHATASE 110(H) 35 - 104 IU/L 01/13/2025 11:37 AM RECREATIONAL RESORT MANAGER [facility] Blood BLOOD SPECIMEN / Unknown Venipuncture / Unknown 01/13/2025 10:58 AM RECREATIONAL RESORT MANAGER 01/13/2025 11:06 AM RECREATIONAL RESORT MANAGER Ed Chavez MD CHEMISTRY Final R [facility] Performing Organization Address [facility] Co de Phone Number [facility] [address] [address], [place] * Ammonia AM (01/13/2025 10:58 AM RECREATIONAL RESORT MANAGER) AMMONIA 18 16 - 60 umol/L 01/13/2025 11:29 AM RECREATIONAL RESORT MANAGER [facility] Blood BLOOD SPECIMEN / Unknown Venipuncture / Unknown 01/13/2025 10:58 AM RECREATIONAL RESORT MANAGER 01/13/2025 11:06 AM RECREATIONAL RESORT MANAGER Narrative [facility] - 01/13/2025 11:29 AM RECREATIONAL RESORT MANAGER 1. Sulfasalazine and its metabolite Sulfapyridine at therapeutic concentrations may lead to falsely low results. 2. Temozolomide and its metabolite MTIC may lead to falsely elevated results, and its metabolite AIC may lead to falsely low results. Ed Chavez MD CHEMISTRY Final R esult Performing Organization Address [facility] Co de Phone Number [facility] [address] [place] [address], [place] * PHOSPHORUS (01/10/2025 6:46 AM RECREATIONAL RESORT MANAGER) Only the most recent of10 resultswithin the time period is included. PHOSPHORUS 3.6 2.5 - 4.5 mg/dL 01/10/2025 7:35 AM RECREATIONAL RESORT MANAGER [facility] Blood BLOOD SPECIMEN / Unknown Butterfly / Unknown 01/10/2025 6:46 AM RECREATIONAL RESORT MANAGER 01/10/2025 7:01 AM RECREATIONAL RESORT MANAGER Pina Mendez RN CHEMISTRY Final Result Performing Organization Address [facility] de Phone Number [facility] [address] [address], [place] * MAGNESIUM (01/10/2025 6:46 AM RECREATIONAL RESORT MANAGER) Only the most recent of8 resultswithin the time period is included. MAGNESIUM 2.1 1.6 - 2.4 mg/dL 01/10/2025 7:35 AM RECREATIONAL RESORT MANAGER [facility] Blood BLOOD SPECIMEN / Unknown Butterfly / Unknown 01/10/2025 6:46 AM RECREATIONAL RESORT MANAGER 01/10/2025 7:01 AM RECREATIONAL RESORT MANAGER Pina Mendez RN CHEMISTRY Final Result Performing Organization Address [facility] Co de Phone Number [facility] [address] [address], [place] * (ABNORMAL) HEPATIC FUNCTION PANEL (01/10/2025 6:46 AM RECREATIONAL RESORT MANAGER) Only the most recent of3 resultswithin the time period is included. ALBUMIN 3.7(L) 4.0 - 4.9 g/dL 01/10/2025 12:18 PM RECREATIONAL RESORT MANAGER [facility] PROTEIN,TOTAL 7.0 6.0 - 8.0 g/dL 01/10/2025 12:18 PM RECREATIONAL RESORT MANAGER [facility] BILIRUBIN,TOTAL 0.5 0.0 - 1.2 mg/dL 01/10/2025 12:18 PM RECREATIONAL RESORT MANAGER [facility] BILIRUBIN,DIRECT 0.2 0.0 - 0.2 mg/dL 01/10/2025 12:18 PM RECREATIONAL RESORT MANAGER [facility] BILIRUBIN,INDIRE CT 0.3 0.2 - 0.8 mg/dL 01/10/2025 12:18 PM [facility] ALK PHOSPHATASE 129(H) 35 - 104 IU/L 01/10/2025 12:18 PM [facility] ALT (SGPT) 59(H) 10 - 35 IU/L 01/10/2025 12:18 PM [facility] AST (SGOT) 34 10 - 35 IU/L 01/10/2025 12:18 PM [facility] Blood BLOOD SPECIMEN / Unknown Butterfly / Unknown 01/10/2025 6:46 AM RECREATIONAL RESORT MANAGER 01/10/2025 7:01 AM [facility] Francisco DO CHEMISTRY Final Result [facility] [address] [place] [phone], * (ABNORMAL) Basic metabolic panel AM (01/09/2025 6:17 AM RECREATIONAL RESORT MANAGER) Only the most recent of9 resultswithin the time period is included. Pathologist [facility] SODIUM 136 136 - 145 mmol/L 01/09/2025 [...] 70 - 99 mg/dL 01/09/2025 6:57 AM [facility] CALCIUM 9.0 8.8 - 10.4 mg/dL [...] 8 - 23 mg/dL 01/09/2025 6:57 AM [facility] CREATININE 0.38(L) 0.50 - 0.90 mg/dL 01/09/2025 6:57 AM [facility] BUN/CREAT RATIO 24(H) 10 - 20 6:57 AM [facility] eGFR >90 >90 mL/min/1. 73m2 01/09/2025 [...] Non-Lab Venipuncture / Unknown 01/09/2025 6:17 AM RECREATIONAL RESORT MANAGER 01/09/2025 6:27 AM [facility] us Ed Chavez MD CHEMISTRY Final R esult [facility] [address] [place] [address], [place] * (ABNORMAL) LD,TOTAL (01/07/2025 6:31 AM RECREATIONAL RESORT MANAGER) Pathologist [facility] LD,TOTAL 349(H) 135 - 214 IU/L 01/07/2025 7:21 AM RECREATIONAL RESORT MANAGER [facility] Blood BLOOD SPECIMEN / Unknown Line/Port / Unknown 01/07/2025 6:31 AM RECREATIONAL RESORT MANAGER 01/07/2025 6:40 AM RECREATIONAL RESORT MANAGER Ed Chavez MD CHEMISTRY Final R esult Performing Organization Address [facility] Co de Phone Number [facility] [address] [place] [address], [place] * (ABNORMAL) HAPTOGLOBIN (01/06/2025 4:02 PM RECREATIONAL RESORT MANAGER) Pathologist [facility] Haptoglobin 362(H) 30 - 200 mg/dL 01/06/2025 7:51 PM RECREATIONAL RESORT MANAGER [facility] Blood BLOOD SPECIMEN / Unknown Non-Lab Venipuncture / Unknown 01/06/2025 4:02 PM RECREATIONAL RESORT MANAGER 01/06/2025 4:09 PM RECREATIONAL RESORT MANAGER Ed Chavez MD CHEMISTRY Final R esult Performing Organization Address [facility] de Phone Number [facility] [address] [place] [address], [place] * Platelets AM (01/06/2025 4:16 AM RECREATIONAL RESORT MANAGER) Only the most recent of3 resultswithin the time period is included. [facility] PLATELET COUNT 298 140 - 440 thou/cu mm 01/06/2025 4:39 AM RECREATIONAL RESORT MANAGER [facility] MPV 8.0 6.5 - 11.0 fL 01/06/2025 4:39 AM RECREATIONAL RESORT MANAGER [facility] Blood BLOOD SPECIMEN / Unknown Line/Port / Unknown 01/06/2025 4:16 AM RECREATIONAL RESORT MANAGER 01/06/2025 4:29 AM RECREATIONAL RESORT MANAGER Ed Chavez MD HEMATOLOGY Final R esult Performing Organization Address City/[facility] Co de Phone Number [facility] [address] [address], [place] * WBC AM (01/06/2025 4:16 AM RECREATIONAL RESORT MANAGER) Only the most recent of6 resultswithin the time period is included. WHITE BLOOD COUNT 9.6 4.5 - 11.0 thou/cu mm 01/06/2025 4:39 AM RECREATIONAL RESORT MANAGER [facility] NRBC 0.0 % 01/06/2025 4:39 AM RECREATIONAL RESORT MANAGER [facility] ABS NRBC 0.0 thou /cu mm 01/06/2025 4:39 AM RECREATIONAL RESORT MANAGER [facility] Blood BLOOD SPECIMEN / Unknown Line/Port / Unknown 01/06/2025 4:16 AM RECREATIONAL RESORT MANAGER 01/06/2025 4:29 AM RECREATIONAL RESORT MANAGER Ed Chavez MD HEMATOLOGY Final R esult Performing Organization Address [facility] Co de Phone Number [facility] [address] [address], [place] * (ABNORMAL) RETICULOCYTES (01/06/2025 4:16 AM RECREATIONAL RESORT MANAGER) Pathologist [facility] RETIC% 2.3(H) 0.5 - 1.5 % 01/06/2025 12:48 PM RECREATIONAL RESORT MANAGER [facility] RETIC (ABSOLUTE) 0.07 0.03 - 0.08 mil/cu mm 01/06/2025 12:48 PM RECREATIONAL RESORT MANAGER [facility] Blood BLOOD SPECIMEN / Unknown Line/Port / Unknown 01/06/2025 4:16 AM RECREATIONAL RESORT MANAGER 01/06/2025 4:29 AM RECREATIONAL RESORT MANAGER Ed Chavez MD HEMATOLOGY Final R esult Performing Organization Address City/[facility] Co de Phone Number [facility] [address] [address], [place] * [place] Venous doppler BILATERAL lower extremity (01/05/2025 10:07 AM RECREATIONAL RESORT MANAGER) Anatomical Region Laterality Modality LEGS, LEG L, LEG R Ultrasound 01/05/2025 10:1 9 AM RECREATIONAL RESORT MANAGER Impressions 01/05/2025 10:19 AM RECREATIONAL RESORT MANAGER : Unremarkable ultrasound of the bilateral lower extremity veins. No sign of venous thrombus. Dictated by Carlos Shi MD @ 01/05/2025 10:19:47 AM (Electronically Signed) Narrative 01/05/2025 10:19 AM RECREATIONAL RESORT MANAGER For Patients: As a result of the [...] R esult * PROCALCITONIN (01/05/2025 9:30 AM RECREATIONAL RESORT MANAGER) PROCALCITONIN 0.14 ng/ml 01/05/2025 10:12 AM [facility] Blood BLOOD SPECIMEN / Unknown Non-Lab Venipuncture / Unknown 01/05/2025 9:30 AM RECREATIONAL RESORT MANAGER 01/05/2025 9:36 AM [facility] 01/05/2025 10:12 AM [facility] Procalcitonin for initial assessment of Lower Respiratory [...] Organization Address [facility]/ZIP Co de Phone Number [facility] [address] [place] [address], [place] * Electrolyte panel AM (01/05/2025 9:30 AM RECREATIONAL RESORT MANAGER) SODIUM 137 136 - 145 mmol/L 01/05/2025 3:42 PM RECREATIONAL RESORT MANAGER [facility] POTASSIUM 4.0 3.5 - 5.1 mmol/L 01/05/2025 3:42 PM RECREATIONAL RESORT MANAGER [facility] CHLORIDE 104 98 - 107 mmol/L 01/05/2025 3:42 PM RECREATIONAL RESORT MANAGER [facility] CO2,TOTAL 22 22 - 29 mmol/L 01/05/2025 3:42 PM RECREATIONAL RESORT MANAGER [facility] ANION GAP 11 5 - 18 01/05/2025 3:42 PM RECREATIONAL RESORT MANAGER [facility] Blood BLOOD SPECIMEN / Unknown Non-Lab Venipuncture / Unknown 01/05/2025 9:30 AM RECREATIONAL RESORT MANAGER 01/05/2025 9:36 AM RECREATIONAL RESORT MANAGER Ed Chavez MD CHEMISTRY Final R esult Performing Organization Address [facility] de Phone Number [facility] [address] [place] [address], [place] * (ABNORMAL) GLUCOSE METER (01/05/2025 7:55 AM RECREATIONAL RESORT MANAGER) Only the most recent of35 resultswithin the time period is included. GLUCOSE METER 144(H) 65 - 100 mg/dL 01/05/2025 7:56 AM RECREATIONAL RESORT MANAGER [facility] Blood BLOOD SPECIMEN / Unknown 01/05/2025 7:55 AM RECREATIONAL RESORT MANAGER 01/05/2025 7:56 AM RECREATIONAL RESORT MANAGER Ed Chavez MD CHEMISTRY Final R esult Performing Organization Address City/[facility]/ZIP Co de Phone Number [facility] [address] [address], [place] * SODIUM,RANDOM URINE (01/04/2025 11:02 AM RECREATIONAL RESORT MANAGER) Only the most recent of2 resultswithin the time period is included. SODIUM,RANDOM URINE 92 mmol/L 01/04/2025 12:28 PM RECREATIONAL RESORT MANAGER [facility] Comment:No Reference Range D efined. Urine URINE SPECIMEN / Unknown Non-Blood / Unknown 01/04/2025 11:02 AM RECREATIONAL RESORT MANAGER 01/04/2025 11:44 AM RECREATIONAL RESORT MANAGER Ed Chavez MD URINE Final R esult Performing Organization Address City/[facility]/ZIP Co de Phone Number [facility] [address] [address], [place] * Osmolality, urine TODAY (01/04/2025 11:02 AM RECREATIONAL RESORT MANAGER) Only the most recent of2 resultswithin the time period is included. OSMOLALITY,URI NE 843 50 - 1,400 mOsmol/kg 01/04/2025 12:18 PM RECREATIONAL RESORT MANAGER [facility] Urine URINE SPECIMEN / Unknown Non-Blood / Unknown 01/04/2025 11:02 AM RECREATIONAL RESORT MANAGER 01/04/2025 11:44 AM RECREATIONAL RESORT MANAGER Ed Chavez MD URINE Final R esult Performing Organization Address City/[facility]/ZIP Co de Phone Number [facility] [address] [address], [place] * (ABNORMAL) Osmolality, serum TODAY (01/04/2025 11:02 AM RECREATIONAL RESORT MANAGER) OSMOLALITY 302(H) 275 - 300 mOsmol/kg 01/04/2025 1:22 PM RECREATIONAL RESORT MANAGER [facility] Comment:This is a corrected result. Previously reported as 843 mOsmol/kg with reference range 275-300 mOsmol/kg on 01/04/2025 at 1222 RECREATIONAL RESORT MANAGER Blood BLOOD SPECIMEN / Unknown Non-Lab Venipuncture / Unknown 01/04/2025 11:02 AM RECREATIONAL RESORT MANAGER 01/04/2025 11:22 AM RECREATIONAL RESORT MANAGER Ed Chavez MD CHEMISTRY Edited Result - Final [facility] [address] [place] [address], [place] * CT HEAD BRAIN WO (01/03/2025 4:02 PM RECREATIONAL RESORT MANAGER) Only the most recent of5 resultswithin the time period is included. Anatomical Region Laterality Modality HEAD, BRAIN Computed Tomogra phy 01/03/2025 4:19 PM RECREATIONAL RESORT MANAGER Impressions 01/03/2025 4:19 PM RECREATIONAL RESORT MANAGER 1. Stable size of the right occipital [...] PM (Electronically Signed) Narrative 01/03/2025 4:19 PM RECREATIONAL RESORT MANAGER For Patients: As a result of the [...] * INSERT PICC LINE (01/01/2025 5:41 PM RECREATIONAL RESORT MANAGER) Narrative Kelechi Arora RN - 01/01/2025 5:41 PM RECREATIONAL RESORT MANAGER Kelechi Arora RN 01/01/2025 5:45 PM PICC Line Insertion Note 01/01/2025 5:41 PM Procedure education reviewed: Unable to discuss, due to patient condition and family not present., discussed with: Authorized passenger service representative face to face. Family face to face confirms understanding of procedure. Fireproof Door Maker used: No Reason for insertion: MD order [...] Lumen Two Designation: Purple Vessel Diameter: .40 Swmhmzpo-cy-Ztea Ratio (%): Visible Catheter Length (cm): 0 [...] Dressing change due date 01/08/2025 01/01/251739 Line Rn Maternity Name: Bard Line Type: Valved Power PICC Lot Number: [id number] Access Assistance:Modified Seldinger Technique (Micro-Introducer) WITHOUT Dermatotomy [...] esult * CORTISOL TOTAL (01/01/2025 4:37 PM RECREATIONAL RESORT MANAGER) CORTISOL,TOTAL 23.7 ug/dL 01/01/2025 5:35 PM RECREATIONAL RESORT MANAGER [facility] Blood BLOOD SPECIMEN / Unknown Butterfly / Unknown 01/01/2025 4:37 PM RECREATIONAL RESORT MANAGER 01/01/2025 4:43 PM RECREATIONAL RESORT MANAGER Narrative [facility] 01/01/2025 5:35 PM RECREATIONAL RESORT MANAGER Cortisol Morning Hours 6:00 AM - 10:00 [...] Organization Address [facility] Co de Phone Number [facility] [address] [place] [id number], [place] * TSH FOR ADD ON (01/01/2025 11:17 AM RECREATIONAL RESORT MANAGER) TSH 1.97 0.27 - 4.20 uIU/mL 01/01/2025 4:19 PM RECREATIONAL RESORT MANAGER [facility] Blood BLOOD SPECIMEN / Unknown Butterfly / Unknown 01/01/2025 11:17 AM RECREATIONAL RESORT MANAGER 01/01/2025 11:35 AM RECREATIONAL RESORT MANAGER Narrative [facility] - 01/01/2025 4:19 PM RECREATIONAL RESORT MANAGER In Adults, TSH values between 5.00 and 10.00 uIU/ml do not necessarily indicate the presence of Hypothyroidism. Correlation with clinical findings such as presence of goiter and/or Thyroperoxidase (TPO) Antibody may be helpful. For more information please refer to REHANA 2004; 291: [phone]. Ed Chavez MD CHEMISTRY Final R esult Performing Organization Address [facility] Co de Phone Number [facility] [address] [place] [address], [place] * CT CHEST ABDOMEN PELVIS W (12/31/2024 4:48 PM RECREATIONAL RESORT MANAGER) Anatomical Region Laterality Modality Abdomen, Pelvis, AORTA, LIVER, SPLEEN, CHEST Computed Tomography 12/31/2024 8:51 PM RECREATIONAL RESORT MANAGER Narrative 12/31/2024 8:51 PM RECREATIONAL RESORT MANAGER For Patients: As a result of the [...] esult * Blood culture (12/31/2024 12:29 PM RECREATIONAL RESORT MANAGER) Only the most recent of2 resultswithin the time period is included. Pathologist [facility] CULTURE No Growth. 01/05/2025 2:55 PM RECREATIONAL RESORT MANAGER [facility] Blood BLOOD SPECIMEN / Unknown Non-Lab Venipuncture / Unknown 12/31/2024 12:29 PM RECREATIONAL RESORT MANAGER 12/31/2024 12:40 PM RECREATIONAL RESORT MANAGER Narrative [facility] - 01/05/2025 2:55 PM RECREATIONAL RESORT MANAGER Low volume blood culture received; possible false negative culture. Ed Chavez MD MICROBIOLOGY Final R esult [facility] [address] [place] [address], * COVID/FLU/RSV PANEL (12/30/2024 10:17 AM RECREATIONAL RESORT MANAGER) Pathologist [facility] COVID 19 [facility] Negative Negative 12/30/2024 11:34 AM RECREATIONAL RESORT MANAGER [facility] Comment:All PCR tests are rae bject to false negative result due to variability in viral load and collection technique. A negative result does not rule out a SARS-CoV-2 infection. Clinical correlation required. INFLUENZA A PCR Negative 11:34 AM RECREATIONAL RESORT MANAGER [facility] INFLUENZA B PCR Negative 11:34 AM RECREATIONAL RESORT MANAGER [facility] Respiratory Syncytial Virus Negative 12/30/2024 11:34 AM RECREATIONAL RESORT MANAGER [facility] Swab NASOPHARYNGEAL SWAB / Unknown Non-Blood / Unknown 12/30/2024 10:17 AM RECREATIONAL RESORT MANAGER 12/30/2024 10:31 AM RECREATIONAL RESORT MANAGER us Ed Chavez MD MICROBIOLOGY Final R esult Performing Organization Address City/[facility]/ZIP Co de Phone Number [facility] [address] [address], [place] * URINALYSIS MICROSCOPIC (12/29/2024 2:21 PM RECREATIONAL RESORT MANAGER) RBC 0-2 0-2, None Seen /HPF 12/29/2024 2:31 PM RECREATIONAL RESORT MANAGER [facility] WBC 3-5 0-2, 3-5, None Seen /HPF 12/29/2024 2:31 PM RECREATIONAL RESORT MANAGER [facility] BACTERIA None Seen None Seen, Rare, Few Bacteria/ HPF 12/29/2024 2:31 PM RECREATIONAL RESORT MANAGER [facility] EPITHELIAL CELLS None Seen None Seen, Few Epi/HPF 12/29/2024 2:31 PM RECREATIONAL RESORT MANAGER [facility] HYALINE CASTS 0-2 0-2, 3-5 /LPF 12/29/2024 2:31 PM RECREATIONAL RESORT MANAGER [facility] Urine URINE SPECIMEN / Unknown Non-Blood / Unknown 12/29/2024 2:21 PM RECREATIONAL RESORT MANAGER 12/29/2024 2:21 PM RECREATIONAL RESORT MANAGER us Tino Lemus MD URINE Final Re sult Performing Organization Address City/[facility]/ZIP Co de Phone Number [facility] [address] [address], [place] * (ABNORMAL) Urinalysis TODAY (12/29/2024 2:21 PM RECREATIONAL RESORT MANAGER) Only the most recent of2 resultswithin the time period is included. COLOR Yellow Yellow Color 12/29/2024 2:31 PM RECREATIONAL RESORT MANAGER [facility] CLARITY Clear Clear Clarity 12/29/2024 2:31 PM RECREATIONAL RESORT MANAGER [facility] SPECIFIC GRAVITY,URINE <=1.005(A) 1.010, 1.015, 1.020, 1.025 12/29/2024 2:31 PM RECREATIONAL RESORT MANAGER [facility] PH,URINE 8.0 6.0, 7.0, 8.0, 5.5, 6.5, 7.5, 8.5 12/29/2024 2:31 PM [facility] UROBILINOGEN, QUALITATIVE Normal Normal EU/dl 12/29/2024 2:31 PM [facility] PROTEIN, URINE Negative Negative mg/dL 12/29/2024 2:31 PM RECREATIONAL RESORT MANAGER [facility] GLUCOSE, URINE Negative Negative mg/dL 12/29/2024 2:31 PM RECREATIONAL RESORT MANAGER [facility] KETONES,URINE Negative Negative mg/dL 12/29/2024 2:31 PM RECREATIONAL RESORT MANAGER [facility] BILIRUBIN,URI NE Negative Negative 12/29/2024 2:31 PM RECREATIONAL RESORT MANAGER [facility] OCCULT BLOOD,URINE Negative Negative 12/29/2024 2:31 PM RECREATIONAL RESORT MANAGER [facility] NITRITE Negative Negative 12/29/2024 2:31 PM RECREATIONAL RESORT MANAGER [facility] LEUKOCYTE ESTERASE Small(A) Negative 12/29/2024 2:31 PM RECREATIONAL RESORT MANAGER [facility] Urine URINE SPECIMEN / Unknown Non-Blood / Unknown 12/29/2024 2:21 PM RECREATIONAL RESORT MANAGER 12/29/2024 2:21 PM RECREATIONAL RESORT MANAGER us Tino Lemus MD URINE Final Re sult [facility] [address] [address], [place] * XR ABDOMEN 1 VIEW PORTABLE (12/28/2024 6:33 PM RECREATIONAL RESORT MANAGER) Anatomical Region Laterality Modality Abdomen Digital Radiogra phy 12/28/2024 6:59 PM RECREATIONAL RESORT MANAGER Impressions 12/28/2024 6:59 PM RECREATIONAL RESORT MANAGER Enteric tube tip in the proximal stomach. Dictated by [place] Spencer MD @ 12/28/2024 6:59:22 PM (Electronically Signed) Narrative 12/28/2024 6:59 PM RECREATIONAL RESORT MANAGER For Patients: As a result of the [...] right lower lateral rib fractures Procedure Note Frederikc Spencer MD - 12/28/2024 For Patients: As [...] Result * SCAN-CARDIAC STRIP (12/28/2024 7:30 AM RECREATIONAL RESORT MANAGER) us Scanner OTHER Final Result * SCAN-RADIOLOGY REPORT (12/28/2024 12:00 AM RECREATIONAL RESORT MANAGER) Anatomical Region Laterality Modality Other Narrative 12/28/2024 12:00 AM RECREATIONAL RESORT MANAGER Ordered by an unspecified provider. us Other Clinical Staff OTHER Final Resul t * MR BRAIN WO CONTRAST (12/26/2024 4:45 PM RECREATIONAL RESORT MANAGER) Anatomical Region Laterality Modality BRAIN, HEAD Magnetic Resonan ce 12/27/2024 8:50 AM RECREATIONAL RESORT MANAGER Narrative 12/27/2024 8:50 AM RECREATIONAL RESORT MANAGER For Patients: As a result of the [...] sult * SCAN CORRESP-IMAGING (12/26/2024 10:44 AM RECREATIONAL RESORT MANAGER) Anatomical Region Laterality Modality Other Narrative 12/26/2024 10:44 AM RECREATIONAL RESORT MANAGER Ordered by an unspecified provider. us Other Clinical Staff OTHER Final Resul t * SCAN-CARDIAC STRIP (12/25/2024 10:48 PM RECREATIONAL RESORT MANAGER) us Scanner OTHER Final Result * SCAN-CARDIAC STRIP (12/25/2024 10:00 PM RECREATIONAL RESORT MANAGER) us Scanner OTHER Final Result * (ABNORMAL) CBC WITH AUTO DIFFERENTIAL (12/25/2024 9:51 PM RECREATIONAL RESORT MANAGER) WHITE BLOOD COUNT 12.0(H) 4.5 - 11.0 thou/cu mm 12/25/2024 10:14 PM RECREATIONAL RESORT MANAGER [facility] RED BLOOD COUNT 4.06 4.00 - 5.20 mil/cu mm 12/25/2024 10:14 PM RECREATIONAL RESORT MANAGER [facility] HEMOGLOBIN 12.1 12.0 - 16.0 g/dL 12/25/2024 10:14 PM RECREATIONAL RESORT MANAGER [facility] HEMATOCRIT 37.4 33.0 - 51.0 % 12/25/2024 10:14 PM RECREATIONAL RESORT MANAGER [facility] MCV 92 80 [...] [place] [facility] % IMMATURE GRAN (METAS,MYELOS,DC OS) 0.4 % 12/25/2024 10:14 PM REHABILITATION [...] 0.1 <0.3 thou/cu mm 12/25/2024 10:14 PM RECREATIONAL RESORT MANAGER [facility] Blood BLOOD SPECIMEN / Unknown Venipuncture / Unknown 12/25/2024 9:51 PM RECREATIONAL RESORT MANAGER 12/25/2024 9:59 PM RECREATIONAL RESORT MANAGER Helena Smith DO HEMATOLOGY Final Result Performing Organization Address [facility] de Phone Number [facility] [address] [address], [place] * Protime - INR (12/25/2024 9:51 PM RECREATIONAL RESORT MANAGER) Pathologist [facility] INR 1.0 <1.3 12/25/2024 10:27 PM RECREATIONAL RESORT MANAGER [facility] PROTIME 10.9 10.6 - 12.4 sec 12/25/2024 10:27 PM RECREATIONAL RESORT MANAGER [facility] Blood BLOOD SPECIMEN / Unknown Venipuncture / Unknown 12/25/2024 9:51 PM RECREATIONAL RESORT MANAGER 12/25/2024 9:59 PM RECREATIONAL RESORT MANAGER Narrative [facility] - 12/25/2024 10:27 PM RECREATIONAL RESORT MANAGER Therapeutic Range 2.0-3.0 for most anticoagulated patients [...] Organization Address [facility] de Phone Number [facility] [address] [address], [place] * 12 Lead EKG (12/25/2024 9:45 PM RECREATIONAL RESORT MANAGER) Interpretation Normal sinus rhythm Normal ECG No previous ECGs available BEYOND NOW Ventricular Rate 68 BPM BEYOND NOW Atrial Rate 68 BPM BEYOND NOW P-R Interval 158 ms BEYOND NOW QRS Duration 70 ms BEYOND NOW QT 420 ms BEYOND NOW QTc 446 ms BEYOND NOW P [place] 80 degrees BEYOND NOW R [place] 58 degrees BEYOND NOW T [place] 61 degrees BEYOND NOW 12/25/2024 9:45 PM RECREATIONAL RESORT MANAGER 12/26/2024 8:39 AM RECREATIONAL RESORT MANAGER us Helena Smith DO EKG ORD Final Result BEYOND NOW [place], [place] from Last 3 Months Insurance BLUE CROSS TELLER BLUE MR PB ONLY MEDICARE PART B HB ONLY MEDICARE PART A HB ONLY [facility] MEDIC[facility] PPS Advance Directives Documents on File Type Date Recorded Patient Door Closer Expl anation Healthcare Directive 12/31/2024 5:22 PM Healthcare Directive 02/28/2000 12:00 AM * Full Code (Latest Code Status on File) Date Activated Date Inactivated Comments 12/25/2024 9:33 PM 01/20/2025 2:01 PM Question Answer Comments Code Status Discussion: Unable to Assess Preferences, Provider to review later * Full Code Date Activated Date Inactivated Comments 11/30/2007 12:12 PM 12/01/2007 12:17 PM Care Teams Chief Station Engineer Relationship Specialty Start Date End Date Ed Walsh MD [address] [place] [address] PCP - General Family Practice 12/29/24 Autumn Raphael AuD Audiology 08/15/12 [facility] [address] [place] [address] 01/19/25
[2025-03-16] MEDS: CEFPODOXIME PROXETIL 200 MG TABLET PO (18:40)
== END 2025-03-16 18:58 | disposition home or self-care (01) ==
PROVIDERS: Emergency Provider Student in an Organized Health Care Education/Training Program; PCP Family Medicine
DX: N39.0 Urinary tract infection, site not specified (principal)
CPT/HCPCS: 36415; 70450; 70496; 70498; 71045; 80048; 81001; 84484; 85025; 87086; 87631; 93005; 99284; 99285; A9270; J7030; Q9967

== ENCOUNTER 2025-04-17 02:32 | Outpatient (CLI) | payer MEDICARE, BC, SELFPAY | END 2025-04-17 02:33 | disposition home or self-care (01) | PROVIDERS: PCP Family Medicine; Visit Provider Family Medicine | DX: R51.9 Headache, unspecified (principal) | CPT/HCPCS: A0425; A0427 ==

== ENCOUNTER 2025-04-17 03:02 | Emergency (ER) | payer MEDICARE, BC, SELFPAY ==
--- OUTSIDE RECORDS SUMMARY | 2025-03-20 14:00 | XMS_ITS | Encounter Summary ---
Author Organization [facility] Address [address] [place] [id number] Care Team Providers Care Band Saw Operator Name Role Phone Ed Walsh MD Primary Care Provider + Reason for Referral * (Routine) - Closed Specialty Diagnoses / Procedures Referred By Contac t Referred To Contact Diagnoses Cerebral brain hemorrhage (HCC) Procedures MRI BRAIN W/O CON Ho Morgan MD [address] [place] [address] Phone: tel: fax: Referral ID Status Reason Start Date Expiration Date Visits Re quested Visits Authorized [id number] Closed 03/20/2025 1 1 Reason for Visit * Reason Comments Follow up Encounter Details Date Type Department Care Team (Late st Contact Info) Description 03/20/2025 2:00 PM CDT Office Visit [facility] [address] [place] [phone] Ho Morgan MD [address] [place] [address] [place] [id number] Cerebral brain hemorrhage (HCC) (Primary Dx) Social History Tobacco Use Types Packs/Day Years Used Date Smoking Tobacco: Never Smokeless Tobacco: Never Comments Unknown Sex and Gender Information Value Date Recorded Sex Assigned at Not on file Legal Sex Female 10:41 AM CDT Gender Identity Not on file Sexual Orientation Not on file documented as of this encounter Patient Instructions * Patient Instructions* Ho Morgan MD - 03/20/2025 2:00 PM CDT 1. Continue physical therapy and Occupational Therapy. 2. Try visual therapy with an class a regional drivers or occupational therapist. 3. Refit hearing aids. 4. MRI of the brain when possible. Would like to get images from [facility] for comparison. 5. EEG when possible. 6. See Dr. Morgan after the above have been completed. documented in this encounter Progress Notes * Ho Morgan MD - 03/20/2025 2:00 PM CDT Chief Complaint: Follow-up for cognitive decline and recent intracerebral hemorrhage post-Leqembi treatment. History of Present Illness (HPI): ACa Espinal is a very pleasant 79-year-old woman with a history of early Alzheimer's disease. She was started on Leqembi, and after the fourth infusion, developed ARIA, culminating in a right posterior parietal/occipital intracerebral hemorrhage in late December. B. She was hospitalized at [facility], initially intubated, then stabilized and transferred to inpatient rehabilitation. C. Since discharge, she has been steadily improving, although she continues to require 24-hour care. She is ambulating short distances with assistance, using a wheelchair otherwise, and has significant apraxia and expressive aphasia. D. Visual deficits are notable, likely due to occipital involvement. Restlessness at night is improving. Recent UTI may have contributed to transient worsening. E. The and primary caregiver has been providing care along with several hired caregivers. He is seeking guidance on long-term prognosis and what degree of cognitive and functional decline is attributable to Alzheimer's disease versus the hemorrhagic injury. Hospital Course Summary: Hemorrhage occurred ~3 weeks post-fourth Leqembi infusion. MRI preceding the hemorrhage showed ARIA-type swelling. Imaging from hospitalization has not yet been reviewed in our system (care was at [facility]). Patient was readmitted Jan 05 and discharged home at the end of December. Examination today mostly shows dense left hemivisual field cut, apraxia with gait and upper extremity function, primitive motor reflexes with grasp. However, she is able to talk for coherently in between. Strength is actually decently maintained. Plan: A. Imaging: Request all imaging from [facility] during December hospitalization, including MRI and CT scans. Compare with pre-hemorrhage MRI (from [facility]) and consider a repeat MRI now to evaluate healing and residual edema or hemosiderin. If MRI is not available or feasible, obtain a CT. B. Neurophysiology: Schedule EEG to rule out subclinical seizures, especially given some evening restlessness and cognitive fluctuation. C. Functional Rehabilitation: Continue physical therapy, occupational therapy, and visual rehabilitation. Encourage evaluation and possible fitting for hearing aids, as auditory input may aid in orientation and engagement. D. Care Planning and Prognosis Discussion: Explained to the complex overlap between cognitive impairment from Alzheimer???s and potential deficits from the brain hemorrhage. Explained apraxia due to parietal involvement - patient has strength but difficulty initiating and sequencing purposeful motor tasks. Prognosis depends partly on extent of hemorrhage and healing; MRI will assist in estimating potential for further improvement. If deficits are largely due to hemorrhagic injury, some degree of continued recovery is possible over 3-6 months. If due to underlying Alzheimer???s progression, recovery may be more limited and progressive decline more likely. Will consider referral to memory care unit or day activity program if engagement and care consistency at home remain a challenge. Next Steps: Review all imaging once obtained. Schedule EEG. Will see patient back after imaging review to better assess prognosis and guide Patient Instructions 1. Continue physical therapy and Occupational Therapy. 2. Try visual therapy with an class a regional drivers or occupational therapist. 3. Refit hearing aids. 4. MRI of the brain when possible. Would like to get images from [facility] for comparison. 5. EEG when possible. 6. See Dr. Morgan after the above have been completed. We have discussed the above details with Ms. Tabor at length and together we feel that this is an appropriate path of care. She is satisfied with this conversation and has no further questions at this time. She is to contact the clinic with any questions or concerns. Ho Morgan MD Neurologist, [facility] 4:34 PM 03/20/2025 This note will be shared with the patient and any medical providers as directed by them. The use ofvoice recognition and artificial intelligence technologies to aid in generating this note was discussed with the patient and verbal consent was obtained. Please excuse any typographical errors that may have been overlooked in proofreading. I spent 45 minutes on the date of the encounter with this patient consisting of activities before, during and after the encounter including time spent: Preparing to see the patient including review of the chart, tests, and/or outside records. Reviewing and verifying information regarding the chief complaint and history already recorded by ancillary staff and/or the patient. Obtaining history and performing medically appropriate evaluation. Counseling the patient regarding the diagnosis, additional diagnostic considerations, possible diagnostic testing, and any potential options for therapy, including conservative/lifestyle measures and pharmacotherapy including risks/benefits, side effects and adverse effects. I also counseled the patient on how to contact me with any questions or concerns, new or worsening symptoms. Ordering medications, tests, and/or procedures, and documenting the chart. Does not include time spent performing any injections/ procedures, or interpretation of any EMG or EEG services billed separately. I am the single focal point of care for a condition that requires longitudinal relationship and personalized care for condition(s) specified within this medical record MIPS 2024: Documentation of current mediations reviewed every visit 2. Does patient use tobacco? No 3. Patient has had no falls in calendar year 4. Does patient have Dementia? No documented in this encounter Plan of Treatment Not on file documented as of this encounter Results * MRI BRAIN W/O CON (04/10/2025 12:06 PM CDT) Anatomical Region Laterality Modality Head Magnetic Resonan ce 04/10/2025 2:44 PM CDT Impressions 04/10/2025 2:52 PM CDT Interval decrease in size and expected evolution of the now late subacute parenchymal hematoma within the right occipital lobe. No new hemorrhage. Report signed by: Navi Nieves MD Narrative 04/10/2025 2:52 PM CDT EXAM: BRAIN MRI WITHOUT CONTRAST, 04/10/2025 CLINICAL DATA: ICD-10: I61.9 Nontraumatic intracerebral hemorrhage, unspecified COMPARISON: Outside MRI 12/26/2024. Outside CT 01/03/2025. TECHNIQUE: Sagittal FLAIR T1; axial FLAIR T2, fat saturated FSE T2, DWI, T1, GRE coronal FLAIR and coronal fat saturated T2. FINDINGS: PARENCHYMA: Expected resolution of the parenchymal hematoma within the right occipital lobe, now in the late subacute phase. There is a moderate amount of residual hemosiderin deposition at this location. Surrounding edema has resolved. No new hemorrhage. Patchy and confluent areas of subcortical and periventricular white matter T2/FLAIR hyperintensity elsewhere have not significantly changed and likely reflect the sequela of chronic microangiopathy. Moderate diffuse parenchymal volume loss has not significantly changed. EXTRA-AXIAL SPACES: Areas of hemosiderosis along the right occipital convexity related to prior subarachnoid hemorrhage. No new hemorrhage. VENTRICLES: Mass effect on the occipital horn of the right lateral ventricle has resolved with expected expected enlargement. No residual layering blood products are appreciated. No hydrocephalus. VESSELS: The flow voids are normal. BONES: Unremarkable. ORBITS: Prior bilateral lens extractions. PARANASAL SINUSES/MASTOID AIR CELLS: Predominantly clear. EXTRACRANIAL SOFT TISSUES: Unremarkable. Procedure Note Navi Nieves MD - 04/10/2025 EXAM: BRAIN MRI WITHOUT CONTRAST, 04/10/2025 CLINICAL DATA: ICD-10: I61.9 Nontraumatic intracerebral hemorrhage, unspecified COMPARISON: Outside MRI 12/26/2024. Outside CT 01/03/2025. TECHNIQUE: Sagittal FLAIR T1; axial FLAIR T2, fat saturated FSE T2, DWI,T1, GRE coronal FLAIR and coronal fat saturated T2. FINDINGS: PARENCHYMA: Expected resolution of the parenchymal hematoma within the right occipitallobe, now in the late subacute phase. There is a moderate amount ofresidual hemosiderin deposition at this location. Surrounding edema hasresolved. No new hemorrhage. Patchy and confluent areas of subcortical andperiventricular white matter T2/FLAIR hyperintensity elsewhere have notsignificantly changed and likely reflect the sequela of chronicmicroangiopathy. Moderate diffuse parenchymal volume loss has notsignificantly changed. EXTRA-AXIAL SPACES: Areas of hemosiderosis along the right occipital convexity related toprior subarachnoid hemorrhage. No new hemorrhage. VENTRICLES: Mass effect on the occipital horn of the right lateral ventricle hasresolved with expected expected enlargement. No residual layering bloodproducts are appreciated. No hydrocephalus. VESSELS: The flow voids are normal. BONES: Unremarkable. ORBITS: Prior bilateral lens extractions. PARANASAL SINUSES/MASTOID AIR CELLS: Predominantly clear. EXTRACRANIAL SOFT TISSUES: Unremarkable. IMPRESSION Interval decrease in size and expected evolution of the now late subacuteparenchymal hematoma within the right occipital lobe. No new hemorrhage. Report signed by: Navi Nieves MD Ho Morgan MD MRI ORDERABLE Final Result * EEG AWAKE AND DROWSY ROUTINE (04/10/2025 10:45 AM CDT) Anatomical Region Laterality Modality Magnetic Resonan ce Narrative 04/11/2025 8:57 AM CDT Table formatting from the original result was not included. PATIENT NAME: Kylie Tabor LOCATION: [facility] TEST DATE: 04/10/2025 : 1945 TECH NAME: Nicholas AGE: 79 DURATION: 00:25:01 GENDER: REF. PHYSICIAN Female Ho Morgan MD CC: N/A MEDICATIONS: Klonopin, Remeron REASON FOR REFERRAL: History of Cerebral brain hemorrhage. Technical details: Routine, surface electrode EEG, performed using 18 channels of digitally acquired EEG, with additional channels for EKG and eye leads. Standard international 10 - 20 system employed for electrode placement. Video monitoring was not performed. Special technical modifications: None. Duration of study: 25 min. Patient arousal states studied: Awake, resting, drowsy. Activation procedures performed: Photic stimulation. Waveform description: Predominant background during the record reveals a poorly formed background rhythm, mostly composed of a polymorphic delta to theta activity. This background slowing is better noted in the right parieto-occipital leads, likely related to an underlying structural lesion in that location. No rhythmic slowing, sharp waves, spikes, or other forms of epileptiform activity is noted on this study. An analysis of waveforms during photic stimulation revealed no significant changes. Impression: This is an abnormal standard electroencephalogram showing right parieto-occipital superimposed upon generalized background slowing; but no specific epileptiform activity. Electronically signed By: Ho Morgan MD Neurologist, [facility] 8:54 AM 04/11/2025 Ho Morgan MD EEG ORDERABLE Final Result documented in this encounter Visit Diagnoses Diagnosis Cerebral brain hemorrhage (HCC)- Primary Intracerebral hemorrhage Cerebral brain hemorrhage (HCC) Intracerebral hemorrhage Cerebral brain hemorrhage (HCC) Intracerebral hemorrhage documented in this encounter Care Teams Band Saw Operator Relationship Specialty Start Date End Date Ed Walsh MD [address] [place] [address] PCP - General Family Medicine 05/27/24 documented as of this encounter
--- OUTSIDE RECORDS SUMMARY | 2025-04-10 10:00 | XMS_ITS | Encounter Summary ---
Author Organization [facility] Address [address] [place] [address] Care Team Providers Care Secretary Bookkeeper Name Role Phone Ed Walsh MD Primary Care Provider + Encounter Details Date Type Department Care Team (Latest Contact Info) Description 04/10/2025 10:00 AM CDT Ancillary Procedure [facility] [place] [facility] [address] [place] [address] Cerebral brain hemorrhage (HCC) Social History Tobacco Use Types Packs/Day Years Used Date Smoking Tobacco: Never Smokeless Tobacco: Never Comments Unknown Sex and Gender Information Value Date Recorded Sex Assigned at Not on file Legal Sex Female 10:41 AM CDT Gender Identity Not on file Sexual Orientation Not on file documented as of this encounter Plan of Treatment Not on file documented as of this encounter Procedures Procedure Name Priority Date/Time Associated Diagnosis Comments EEG AWAKE AND DROWSY ROUTINE Routine 04/10/2025 10:45 AM CDT Cerebral brain hemorrhage (HCC) documented in this encounter Results * EEG AWAKE AND DROWSY ROUTINE (04/10/2025 10:45 AM CDT) Anatomical Region Laterality Modality Magnetic Resonan ce Narrative 04/11/2025 8:57 AM CDT Table formatting from the original result was not included. PATIENT NAME: Kylie Tabor LOCATION: [place] TEST DATE: 04/10/2025 : 1945 TECH NAME: [...] Electronically signed By: Ho Morgan MD Neurologist, [facility] [place] [facility] 8:54 AM 04/11/2025 Ho Morgan MD EEG ORDERABLE Final Result documented in this encounter Visit Diagnoses Diagnosis Cerebral brain hemorrhage (HCC) Intracerebral hemorrhage documented in this encounter Care Teams Secretary Bookkeeper Relationship Specialty Start Date End Date Ed Walsh MD [address] [place] [address] PCP - General Family Medicine 05/27/24 documented as of this encounter
--- OUTSIDE RECORDS SUMMARY | 2025-04-10 11:45 | XMS_ITS | Encounter Summary ---
Author Organization [facility] Address [address] [place] [address] Care Team Providers Care [employer] Dispatcher Name Role Phone Ed Walsh MD Primary Care Provider + Reason for Visit * (Routine) - Closed Specialty Diagnoses / Procedures Referred By Contac t Referred To Contact Diagnoses Cerebral brain hemorrhage (HCC) Procedures MRI BRAIN W/O CON Ho Morgan MD [address] [place] [address] [place] [address] Phone: tel: fax: Referral ID Status Reason Start Date Expiration Date Visits Re quested Visits Authorized [id number] Closed 03/20/2025 1 1 Encounter Details Date Type Department Care Team (Latest Contact Info) Description 04/10/2025 11:45 AM CDT Ancillary Procedure [facility] [address] [place] [address] Cerebral brain hemorrhage (HCC) Social History Tobacco [...] Procedure Name Priority Date/Time Associated Diagnosis Comments MRI BRAIN W/O CON Routine 04/10/2025 12: 06 PM CDT Cerebral brain hemorrhage (HCC) documented in this encounter Results * MRI BRAIN W/O [...] Ho Morgan MD MRI ORDERABLE Final Result documented in this encounter Visit Diagnoses Diagnosis Cerebral brain hemorrhage (HCC) Intracerebral hemorrhage documented in this encounter Care Teams [employer] Dispatcher Relationship Specialty Start Date End Date Ed Walsh MD [address] [place] [address] PCP - General Family Medicine 05/27/24 documented as of this encounter
[2025-04-17] VITALS (21 sets, daily range): BP systolic 90–159; BP diastolic 60–86; PULSE 63–73; RESP 16–18; TEMP 36.1; O2SAT 90–99
--- OUTSIDE RECORDS SUMMARY | 2025-04-17 03:04 | XMS_ITS | Data Portability ---
Author Organization [facility], [facility] Address [address] [place] [address] Care Team Providers Care Commercial Announcer Name Role Phone SALONI DURANT Primary Care Provider [phone] Assessment No assessment recorded. Plan of Treatment Reminders Order Date Submit Date Provider Last Modified By Organization Details Last Modified Time Details Appointments None recorded. Lab None recorded. Referral None recorded. Procedures None recorded. Surgeries total hip arthroplas ty, anterior approach (SURG) 2023 024 [email or web address] Not available 12:49:37 Imaging XR, hip + pelvis, unilateral , 2 or 3 view 2023 024 [email or web address] 5 In-Office Order, Internal Use Only DO Not Attach Compendium DO Not Attach Compendium, Do Not Delete/merge, [id number] 17:23:49 Medication Orders None recorded. Patient TargetsNo [...] DO Not Attach Compendium, Do Not Delete/merge, [id number] 12/28/2023 17:23:48 Result Notes None recorded. Procedures Surgical History Date Name Laterality Status Provider Name and Address Organization Details Recorded Time Joint Replacement completed Kristin Aguilar [facility] 12/27/2023 16:39:40 Back Surgery completed Kristin Aguilar [facility] 12/27/2023 16:39:40 Other Surgeries completed Kristin Velasco [facility] 12/27/2023 16:39:40 Imaging Results None recorded. Procedure Notes None recorded. Medical Equipment None Reported. Allergies No known drug allergies Vitals Date Recorded Body height Body mass index (BMI) Body weight Heart rate Systolic blood pressure Diastolic blood pressure Provider Name and Address Organization Details Last Updated DateTime 4 154.94 cm 18.9 kg/m2 36223.2 4 g 62 /min 122 mm[Hg] 77 mm[Hg] Wendy Wilson [facility] 4 16:43:21 Social History Question Answer Notes LastModified by Organizat ion Details LastModified Time Tobacco Smoking Status Never Smoker Wendy Wilson [facility] 12/27/2023 16:43:44 Do You Have An Advance Directive? Yes Per Patient Information not available 12/27/2023 If Pulse Oximetry Was Done: Is The Patient's Sp02 Less Than 93% On Room Air? No [email or web address] Information not available 12/27/2023 What Was The Date Of Your Most Recent Tobacco Screening? 12/27/2023 Information not available 12/27/2023 What Is Your Relationship Status? [email or web address] Information not available 12/27/2023 Sex: Unknown Functional Status Question Answer Note LastModified by Organization D etails LastModified Time Do you or have you ever used any other forms of tobacco or nicotine? No Information not available 12/27/2023 Mental Status None recorded. Family History Nothing Reported. Medical History Condition Response Hearing Loss Y Gynecological HistoryNo gynecological history recorded. Obstetrics History GPAL:G 0 P 0 0 0 0 Past Encounters Encounter ID Performer Location Encounter Start Date Encounter Closed Date Diagnosis/Indication Diagnosis SNOMED-CT Code Diagnosis ICD10 Code Diagnosis Note [id number] José Francis MD [facility] [address] [address] 12/27/2023 16:22:23 12/27/2023 17:07:25 Pain of left hip joint [id number] 39122 M25.552 arthritis of the left hip ; she is bone on boneshe will require a [place] had a long discussion with the patient [...] Advance Directives Directive Y: per patient Payers Insurance Date Sequence Insurance Name Policy Number Policy Rashid Covered Member ID Rashid Member ID Guarantor Name 01/29/2024 1 [place] [id number] [place] 04/01/2024 1 [place] Kylie B Sharona [id number] [place] 12/27/2023 2 [place] [id number] [place] 04/01/2024 2 [place] Kylie B Sharona [id number] [place] 04/01/2024 2 [place] [id number] [place] 02/15/2024 2 UNSPECIFIED REMIT PAYOR Kyliedana Francesles Notes Date Note Type Note Provider Name [...] little Work Related:no Working:no José Francis MD [address], [place], [address], [facility] 12/28/2023 22:35:50 OBGyn Episode No OBEpisode recorded.
--- OUTSIDE RECORDS SUMMARY | 2025-04-17 03:04 | XMS_ITS | Clinical Summary ---
Author Organization [facility] Address [address] [place] [address] Care Team Providers Care Document Control Assistant Name Role Phone Ed Walsh MD Primary Care Provider [phone] Social History Tobacco Use Types Packs/Day Years Used Date Smoking Tobacco: Never Assessed Comments Unknown Sex and Gender Information Value Date Recorded Sex Assigned at Not on file Legal Sex Female 3:30 AM [employer] WORKER Gender Identity Not on file Sexual Orientation Not on file Plan of Treatment Not on file Insurance [facility] MEDICARE [facility] MEDICARE Care Teams Document Control Assistant Relationship Specialty Start Date End Date Ed Walsh MD [facility] [address] [place] [address] PCP - General Family Medicine 09/20/24
--- OUTSIDE RECORDS SUMMARY | 2025-04-17 03:04 | XMS_ITS | Data Portability ---
Author Organization [facility], [facility] Address [address] [place] [address] Care Team Providers Care Glue Line Operator Name Role Phone SALONI DURANT Primary Care Provider [phone] Assessment No assessment recorded. Plan of Treatment Reminders Order Date Submit Date Provider Last Modified By Organization Details Last Modified Time Details Appointments None recorded. Lab None recorded. Referral None recorded. Procedures None recorded. Surgeries total hip arthroplas ty, anterior approach (SURG) 2023 024 Not available 12:49:37 Imaging XR, hip + pelvis, unilateral , 2 or 3 view 2023 024 [email or web address] 5 In-Office Order, Internal Use Only DO Not Attach Compendium DO Not Attach Compendium, Do Not Delete/merge, [id number] 17:23:49 Medication Orders None recorded. Patient TargetsNo targets recorded. Patient InstructionsNo instructions recorded. Reason for Referral None Reported. Results Created Date Observation Date Name Description Value Unit Range Abnormal Flag Note LastModifiedBy Organization Detail LastModifiedTime 12/25/19 24 XR, hip + pelvi s, unila teral , 2 or 3 view No observ ation record ed. [email or web address] In-Office Order Internal Use Only DO Not Attach Compendium DO Not Attach Compendium, Do Not Delete/merge, [id number] 12/28/2023 17:23:48 Result Notes None recorded. Procedures Surgical History Date Name Laterality Status Provider Name and Address Organization Details Recorded Time Joint Replacement completed Kristin Aguilar [facility] 12/27/2023 16:39:40 Back Surgery completed Kristin Aguilar [facility] 12/27/2023 16:39:40 Other Surgeries completed Kristin Velasco [facility] 12/27/2023 16:39:40 Imaging Results None recorded. Procedure Notes None recorded. Medical Equipment None Reported. Allergies No known drug allergies Vitals Date Recorded Body height Body mass index (BMI) Body weight Heart rate Systolic blood pressure Diastolic blood pressure Provider Name and Address Organization Details Last Updated DateTime 4 154.94 cm 18.9 kg/m2 03514.2 4 g 62 /min 122 mm[Hg] 77 mm[Hg] Wendy Wilson [facility] 4 16:43:21 Social History Question Answer Notes LastModified by Organizat ion Details LastModified Time Tobacco Smoking Status Never Smoker Wendy Wilson [facility] 12/27/2023 16:43:44 Do You Have An Advance Directive? Yes Per Patient Information not available 12/27/2023 If Pulse Oximetry Was Done: Is The Patient's Sp02 Less Than 93% On Room Air? No [email or web address] Information not available 12/27/2023 What Was The Date Of Your Most Recent Tobacco Screening? 12/27/2023 Information not available 12/27/2023 What Is Your Relationship Status? [email or web address] Information not available 12/27/2023 Sex: Unknown Functional [...] SNOMED-CT Code Diagnosis ICD10 Code Diagnosis Note [id number] José Francis MD [facility] [address] [address] 12/27/2023 16:22:23 12/27/2023 17:07:25 Pain of left hip joint [id number] 26158 M25.552 arthritis of the left hip ; she is bone on boneshe will require a [place] had a long discussion with the patient [...] Name 01/29/2024 1 [place] B [place] [id number] [place] 04/01/2024 1 [place] Kylie B Sharona [id number] [place] 12/27/2023 2 [place] [id number] [place] 04/01/2024 2 [place] Kylie B Sharona [id number] [place] 04/01/2024 2 [place] [id number] [place] 02/15/2024 2 UNSPECIFIED REMIT PAYOR Kyliedana Francesles [...] Working:no José Francis MD [address] [place], [address], [facility] 12/28/2023 22:35:50 OBGyn Episode No OBEpisode recorded.
--- OUTSIDE RECORDS SUMMARY | 2025-04-17 03:04 | XMS_ITS | Clinical Summary ---
Author Organization [employer] Address [facility] [place] [address] Care Team Providers Care Salesperson Meats Name Role Phone Donavon Autumn Michael Unavailable [phone] Ed Walsh MD Primary Care Provider + Allergies No known active allergies Medications cetirizine (ZyrTEC) 10 mg tablet Take 10 mg by mouth once daily if needed. Active hospital bedIndications: Encephalopathy acute,Intracran ial hemorrhage (HC) Hospital bed with mattress and full rails. Semi-electric bed. Length of need 6 months. 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 Commode. For home use. 1 Each 01/15/20 25 Active wheelchairIndic ations:Intracra nial hemorrhage (HC) Wheelchair: Standard with leg rests: (Swing away Length of need: 12 months 1 Each 01/15/20 25 Active acetaminophen (TYLENOL) 325 mg tabletIndicatio ns:Back pain, unspecified back location, unspecified back pain laterality, unspecified chronicity Take 2 Tablets (650 mg) by mouth every 4 hours if needed for Pain or Temp > (Specify) (Temp >100.4 F (38 C)). Max acetaminophen dose: 4000mg in 24 hrs. 100 Tablet 01/17/2025 5:12 PM BOAT HOP 01/17/20 Active lidocaine 4 % topical patchIndication s:Back pain, unspecified back location, unspecified back pain laterality, unspecified chronicity Apply to intact skin to cover most painful area for max 12hr per 24hr period. 30 Patch 01/17/20 Active OLANzapine 5 mg tablet Take 5 mg by mouth two times daily. 03/07/20 Active mirtazapine 30 mg tablet Take 30 mg by mouth at bedtime. 03/07/20 Active gabapentin 300 mg capsule Take 300 mg by mouth at bedtime. 03/07/20 Active LORazepam 0.5 mg tab Take 0.5 mg by mouth at bedtime if needed for Agitation. Take 1/2 tab (0.25mg) or 1 tab (0.5mg) PO PRN QHS for agitation 03/07/20 Active sertraline 100 mg tabletIndicatio ns:anxiety with depression Take 50 mg by mouth once daily. Indications: anxiousness associated with depression 03/07/20 Active cefpodoxime 200 mg tabletIndicatio ns:urinary tract infection Take 200 mg by mouth two times daily. Indications: urinary tract infection 03/17/20 25 025 Active Problems Problem Noted Date [...] Encounters Date Type Department Care Team Description 04/16/2025 Transcribe Orders [facility] [address] [place] [address] Ed Walsh MD 03/20/2025 12:00 PM CDT Home Care Visit [facility] [address] [place] [address], [place] [address] Lisha Bautista, DANIEL SN - OASIS DISCHARGE 03/18/2025 9:45 AM CDT Home Care Visit [facility] [address] [place] [address], [place] [address] David Fishman, PT PT - DISCIPLINE DISCHARGE 03/17/2025 10:15 AM CDT Home Care Visit [facility] [address] [place] [phone] Toya Ley MINI BAR ATTENDANT - HOME VISIT 03/13/2025 2:00 PM CDT Home Care Visit [facility] [address] [place] [phone] Lisha Bautista RN SN - HOME VISIT 03/13/2025 10:30 AM CDT Home Care Visit [facility] [address] [place] [phone] Toya Ley MINI BAR ATTENDANT - HOME VISIT 03/13/2025 Home Care Visit [facility] [address] [place] [phone] Gracie Fernández, THREAD REELER THREAD REELER - DISCIPLINE DISCHARGE 03/11/2025 10:00 AM CDT Home Care Visit [facility] [address] [place] [phone] Sury Silva, OT OT - DISCIPLINE DISCHARGE 03/11/2025 9:00 AM CDT Home Care Visit [facility] [address] [place] [phone] David Fishman, PT PT - HOME VISIT 03/10/2025 Home Care Visit [facility] [address] [place] [phone] Harini Ramos LISW BROADCAST NEWS PRODUCER - CASE COMMUNICATION 03/07/2025 12:30 PM CDT Home Care Visit [facility] [address] [place] [phone] Lisha Bautista RN SN - HOME VISIT 03/07/2025 Home Care Visit [facility] [address] [place] [address] Harini Ramos LISW CARE COORDINATION 03/07/2025 Orders Only [facility] [address] [place] [address] Lisha Bautista RN <No scans attached> 03/07/2025 Home Care Visit [facility] [address] [place] [address] Harini Ramos LISW BROADCAST NEWS PRODUCER - CASE COMMUNICATION 03/06/2025 2:00 PM CDT Home Care Visit [facility] [address] [place] [phone] Sury Silva, OT OT - REASSESSMENT 03/06/2025 11:45 AM CDT Home Care Visit [facility] [address] [place] [phone] Toya Ley MINI BAR ATTENDANT - HOME VISIT 03/06/2025 9:30 AM CDT Home Care Visit [facility] [address] [place] [phone] David Fishman, PT PT - REASSESSMENT 03/05/2025 10:00 AM CDT Home Care Visit [facility] [address] [place] [phone] Harini Ramos LISW BROADCAST NEWS PRODUCER - HOME VISIT 03/05/2025 Home Care Visit [facility] [address] [place] [phone] David Fishman, PT CARE COORDINATION 03/05/2025 Home Care Visit [facility] [address] [place] [phone] Kathy Jaffe, LOVE CARE COORDINATION 03/04/2025 9:45 AM CDT Home Care Visit [facility] [address] [place] [phone] David Fishman, PT PT - HOME VISIT 03/04/2025 Home Care Visit [facility] [address] [place] [address], [place] [phone] Gracie Fernández, THREAD REELER THREAD REELER - HOME VISIT 02/27/2025 11:45 AM CDT Home Care Visit [facility] [address] [place] [address], [place] [address] Toya Ley MINI BAR ATTENDANT - HOME VISIT 02/27/2025 10:30 AM CDT Home Care Visit [facility] [address] [place] [address], [place] [phone] Lisha Bautista, DANIEL SN - HOME VISIT 02/27/2025 Home Care Visit [facility] [address] [place] [address], [place] [address] Harini Ramos LISW CARE COORDINATION 02/26/2025 10:30 AM CDT Home Care Visit [facility] [address] [place] [address], [place] [phone] Kathy Jaffe COTA OT - HOME VISIT 02/25/2025 9:00 AM CDT Home Care Visit [facility] [address] [place] [phone] David Fishman, PT PT - HOME VISIT 02/24/2025 12:00 PM CDT Home Care Visit [facility] [address] [place] [phone] Gracie Fernández, THREAD REELER THREAD REELER - HOME VISIT 02/21/2025 10:00 AM CDT Home Care Visit [facility] [address] [place] [address], [place] [phone] Lisha Bautista, DANIEL SN - HOME VISIT 02/21/2025 Home Care Visit [facility] [address] [place] [address], [place] [address] Harini Ramos LISW BROADCAST NEWS PRODUCER - CASE COMMUNICATION 02/20/2025 3:00 PM CDT Home Care Visit [facility] [address] [place] [phone] David Fishman, PT PT - HOME VISIT 02/20/2025 11:45 AM CDT Home Care Visit [facility] [address] [place] [address], [place] [address] Toya Ley MINI BAR ATTENDANT - HOME VISIT 02/20/2025 10:00 AM CDT Home Care Visit [facility] [address] [place] [address], [place] [phone] Gracie Fernández, THREAD REELER THREAD REELER - INITIAL ASSESSMENT 02/19/2025 10:30 AM CDT Home Care Visit [facility] [address] [place] [phone] Kathy Jaffe COTA OT - HOME VISIT 02/18/2025 10:45 AM CDT Home Care Visit [facility] [address] [place] [phone] David Fishman, PT PT - HOME VISIT 02/14/2025 2:00 PM CDT Home Care Visit [facility] [address] [place] [phone] David Fishman, PT PT - HOME VISIT 02/13/2025 1:00 PM CDT Home Care Visit [facility] [address] [place] [phone] Christelle Brock, FAGOT HEATER FAGOT HEATER - HOME VISIT 02/13/2025 11:30 AM CDT Home Care Visit [facility] [address] [place] [phone] Toya Ley MINI BAR ATTENDANT - HOME VISIT 02/11/2025 9:00 AM CDT Home Care Visit [facility] [address] [place] [phone] Kathy Jaffe COTA OT - HOME VISIT 02/11/2025 Home Care Visit [facility] [address] [place] [phone] Lisha Bautista, DANIEL CARE COORDINATION 02/11/2025 Telephone [facility] [address] [place] [address] Inge Barksdale, SUPERVISOR [employer] F/U 02/10/2025 3:00 PM CDT Home Care Visit [facility] [address] [place] [address] Harini Ramos LISW BROADCAST NEWS PRODUCER - INITIAL ASSESSMENT 02/10/2025 10:45 AM CDT Home Care Visit [facility] [address] [place] [phone] David Fishman, PT PT - HOME VISIT 02/07/2025 11:30 AM CDT Home Care Visit [facility] [address] [place] [phone] Silvana Victor OT OT - INITIAL ASSESSMENT 02/07/2025 9:00 AM CDT Home Care Visit [facility] [address] [place] [phone] David Fishman, PT PT - HOME VISIT 02/07/2025 Home Care Visit [facility] [address] [place] [phone] David Fishman, PT CARE COORDINATION 02/06/2025 11:45 AM CDT Home Care Visit [facility] [address] [place] [phone] Toya Ley MINI BAR ATTENDANT - HOME VISIT 02/05/2025 10:30 AM CDT Home Care Visit [facility] [address] [place] [phone] David Fishman, PT PT - INITIAL ASSESSMENT 02/04/2025 Nurse Triage [facility] [address] [place] [address] Ed Walsh MD Low Blood Pressure; Medication Management 02/04/2025 Home Care Visit [facility] [address] [place] [phone] Harini Ramos LISW BROADCAST NEWS PRODUCER - CASE COMMUNICATION 02/04/2025 Home Care Visit [facility] [address] [place] [address], [place] [address] Lily Kamara, PT CARE COORDINATION 02/03/2025 11:00 AM CDT Home Care Visit [facility] [address] [place] [address], [place] [address] Lisha Bautista, RN SN - OASIS RESUMPTION OF CARE 01/31/2025 Home Care Visit [facility] [address] [place] [address], [place] [address] Lisha Bautista, DANIEL CARE COORDINATION 01/28/2025 Home Care Visit [facility] [address] [place] [address], [place] [address] Lisha Bautista, RN SN - OASIS TRANSFER 01/28/2025 Home Care Visit [facility] [address] [place] [address], [place] [address] Oxana Esqueda, RN CARE COORDINATION 01/27/2025 Home Care Visit [facility] [address] [place] [address], [place] [address] Lisha Bautista, TAX LAWYER NOTE 01/24/2025 1:30 PM BOAT HOP Home Care Visit [facility] [address] [place] [address], [place] [address] David Fishman, PT PT - INITIAL ASSESSMENT 01/23/2025 11:15 AM BOAT HOP Home Care Visit [facility] [address] [place] [address], [place] [address] Sury Silva OT OT - INITIAL ASSESSMENT 01/23/2025 Home Care Visit [facility] [address] [place] [address], [place] [phone] Oxana Esqueda RN CARE COORDINATION 01/23/2025 Nurse Triage [facility] [address] [place] [address] Ed Walsh MD Constipation 01/21/2025 7:00 AM BOAT HOP Home Care Visit [facility] [address] [place] [address] Shereen Alvarez, RN SN - OASIS START OF CARE 01/21/2025 Telephone [facility] [address] [place] [phone] Shereen Alvarez, astronomy teacher (Need ongoing orders for HH) 01/21/2025 Plan of Care Documentation [facility] [address] [place] [address] 01/19/2025 Travel 12/25/2024 9:26 PM BOAT HOP - 01/20/2025 12:00 PM BOAT HOP Hospital Encounter [facility] [address] [place] [address] Helena Smith, DO Holm, MD Mariah Bains, MD Scott Landeros, MD Yoav Salamanca, MD Abdelrahman Pérez, Ed Hilliard MD [facility], [facility] Hospitalists Of Encephalopathy acute (Primary [...] on file Legal Sex Female 6:04 AM BOAT HOP Gender Identity Not on file Sexual Orientation Not on file Obstetrics History Last Filed Vital Signs Vital Sign Reading Time Taken Comments Blood Pressure 110/60 03/20/2025 12:07 PM CDT Pulse 65 03/20/2025 11:57 AM CDT Temperature 36.7 C (98 F) 03/20/2025 11:57 AM CDT Respiratory Rate 14 03/20/2025 11:57 AM CDT Oxygen Saturation 96% 03/20/2025 11:57 AM CDT Inhaled Oxygen Concentration - - Weight 46.3 kg (102 lb) 02/03/2025 11:21 AM CDT Height 157.5 cm (5' 2) 02/03/2025 11:21 AM CDT Body Mass Index 18.66 02/03/2025 11:21 AM CDT Plan of Treatment Health Maintenance Due Date Last Done Comments Depression screening for age 12+ 1957 BMI (ht and wt on same day) for age 18+ 1963 Hepatitis C screening for age 18-79 1963 Pneumococcal series for age 50+ [...] Vaccine (Season Ended) 2025 Tdap Completed 06/21/2006 Hepatitis B series for 19+ Aged Out N o longer eligible based on patient's age to complete this topic Procedures Procedure Name Priority Date/Time Associated Diagnosis Comments SODIUM Early AM 01/19/2025 6:37 AM BOAT HOP HEMOGLOBIN Early AM 01/19/2025 6:37 AM BOAT HOP from Last 3 Months Results * (ABNORMAL) HEMOGLOBIN (01/19/2025 6:37 AM BOAT HOP) HEMOGLOBIN 9.5(L) 12.0 - 16.0 g/dL 01/19/2025 7:41 AM BOAT HOP [facility] MCV 91 80 - 100 fL 01/19/2025 7:41 AM BOAT HOP [facility] Blood BLOOD SPECIMEN / Unknown Venipuncture / Unknown 01/19/2025 6:37 AM BOAT HOP 01/19/2025 7:27 AM BOAT HOP us Ed Quick MD HEMATOLOGY Final Result [facility] [address] [place] [address], * SODIUM (01/19/2025 6:37 AM BOAT HOP) SODIUM 144 136 - 145 mmol/L 01/19/2025 7:45 AM BOAT HOP [facility] Blood BLOOD SPECIMEN / Unknown Venipuncture / Unknown 01/19/2025 6:37 AM BOAT HOP 01/19/2025 7:28 AM BOAT HOP us Ed Quick MD CHEMISTRY Final Result [facility] [address] [place] [phone], from Last 3 Months Insurance [employer] [place] BLUE MR PB ONLY MEDICARE PART B HB ONLY MEDICARE PART A HB ONLY [facility] HC MEDICARE PPS Advance Directives Documents on File Type Date Recorded Patient Needle Straightener Expl anation Healthcare Directive 12/31/2024 5:22 PM Healthcare Directive 02/28/2000 12:00 AM * Full Code (Latest Code Status on File) Date Activated Date Inactivated Comments 12/25/2024 9:33 PM 01/20/2025 2:01 PM Question Answer Comments Code Status Discussion: Unable to Assess Preferences, Provider to review later * Full Code Date Activated Date Inactivated Comments 11/30/2007 12:12 PM 12/01/2007 12:17 PM Care Teams Salesperson Meats Relationship Specialty Start Date End Date Ed Walsh MD [address] [place] [address] PCP - General Family Practice 12/29/24 Autumn Raphael AuD Audiology 08/15/12
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
--- OUTSIDE RECORDS SUMMARY | 2025-04-17 03:04 | XMS_ITS | Clinical Summary ---
Author Organization [facility] Address [address] [place] [address] Care Team Providers Care Exhibition Designer Name Role Phone Ed Walsh MD Primary Care Provider + Allergies No known active allergies Medications zolpidem (AMBIEN) 5 mg oral tablet TAKE ONE TABLET BY MOUTH EVERY DAY AT BEDTIME NEEDED FOR SLEEP Active valACYclovir (VALTREX) 1 gram oral tablet TAKE 1 TABLET BY MOUTH TWO TIMES A DAY FOR 5 DAYS. Active triamcinolone acetonide (KENALOG) 0.1% cream APPLY TO ABDOMEN TWICE DAILY FOR UP TO 2 WEEKS FOR ITCHY FLARES 02/28/20 23 Active traZODone (DESYREL) 100 mg oral tablet Take 2 tablets (200 mg) by mouth. 11/08/20 23 Active sertraline (ZOLOFT) 50 mg oral tablet TAKE ONE-HALF TABLET BY MOUTH EVERY DAY FOR 14 DAYS THEN INCREASE TO ONE TABLET DAILY FOR 14 DAYS THEN TWO TABLETS EVERY DAY Active oxyCODONE, immediate release, (ROXICODONE) 5 mg oral tablet TAKE 1/2 TO 1 TABLET BY MOUTH EVERY 4-6 HOURS NEEDED FOR PAIN. MAX DAILY DOSE IS 6 TABS. 1/2 TABLET FOR MILD PAIN, 1 TABLET FOR MODERATE-SEVERE PAIN. 03/18/20 24 Active mirtazapine (REMERON) 7.5 mg oral tablet Take 1 tablet (7.5 mg) by mouth at bedtime. 05/10/20 24 Active ketoconazole 2% (NIZORAL) 2 % Top cream cream APPLY TO AFFECTED AREA(S) A SMALL AMOUNT TWICE A DAY FOR 4 WEEKS DIRECTED 05/07/20 24 Active hydrocortisone (HYTONE) 2.5 % Top topical ointment APPLY TO AFFECTED AREA(S) A SMALL AMOUNT TWICE A DAY FOR 4 WEEKS DIRECTED INSTRUCTED 05/07/20 24 Active HYDROcodone-acetam inophen (NORCO) 5-325 mg oral tablet 09/15/20 23 Active gabapentin (NEURONTIN) 300 mg oral capsule TAKE ONE CAPSULE(300MG) BY MOUTH EVERY DAY AT BEDTIME Active fluorouraciL (EFUDEX) 5 % Top cream APPLY TO AFFECTED AREA(S) DAILY DIRECTED 04/23/20 24 Active escitalopram oxalate (LEXAPRO) 10 mg oral tablet 03/10/20 23 Active donepeziL (ARICEPT) 10 mg oral tablet TAKE 1/2 TABLET BY MOUTH AT BEDTIME FOR 2 WEEKS THEN TAKE 1 TABLET AT BEDTIME 10/23/20 23 Active DOCOSAHEXAENOIC ACID ORAL by NOT APPLICABLE route. Active Calcium-Cholecalci ferol, D3, 600 mg-5 mcg (200 unit) oral tablet Take by mouth. Active azelastine 137 mcg/actuation (ASTELIN) 137 mcg (0.1 %) Nasal [place] nasal spray SPRAY 1 SPRAY INTO EACH NOSTRIL IN THE MORNING AND BEFORE BEDTIME DIRECTED 02/05/20 24 Active aspirin 81 mg oral enteric coated tablet TAKE ONE TABLET (81MG) BY MOUTH TWICE A DAY TO HELP PREVENT BLOOD CLOTS. 03/04/20 24 Active alendronate (FOSAMAX) 70 mg oral tablet 02/03/20 23 Active acetaminophen (TYLENOL) 500 mg oral tablet TAKE 1 TO 2 TABLETS (500-1000MG) BY MOUTH EVERY SIX HOURS NEEDED, MAX DAILY DOSE: 4000MG 03/04/20 24 Active memantine (NAMENDA) 5 mg oral tabletIndications: Memory loss or impairment TAKE 5 MG AT BEDTIME X 1 WEEK, THEN INCREASE TO 5 MG TWICE DAILY X 1 WEEK, THEN INCREASE TO 5 MG AM AND 10 MG PM X 1 WEEK, THEN INCREASE TO 10 MG TWICE DAILY THEREAFTER 98 tablet 1 08/02/20 24 Active memantine (NAMENDA) 10 mg oral TabIndications:Mil d early onset Alzheimer's dementia, unspecified whether behavioral, psychotic, or mood disturbance or anxiety (HCC) Take 1 tablet (10 mg) by mouth twice a day. 60 tablet 2 10/09/20 24 Active rizatriptan (MAXALT-COMPUTER SCIENCE PROFESSOR) 10 mg oral disintegrating tablet DISSOLVE 1 TABLETS BY MOUTH 2 TIMES A DAY NEEDED FOR MIGRAINE HEADACHE. MAY REPEAT IN 2 HOURS IF NEEDED. MAX 30 MG (3 TABS) PER 24 HOURS. 36 tablet 3 12/03/19 25 Active clonazePAM (KLONOPIN) 0.5 mg oral tabletIndications: Claustrophobia Take half a tablet 30 minutes before the MRI. You can take the second half right before MRI if needed. You will need a haul driver. 1 tablet 12/19/19 25 Active naloxone (NARCAN) 4 mg/actuation Nasal [place] Instill 1 spray (4 mg) into one nostril as directed. Seek emergency care immediately after use. 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, psychotic disturbance, mood disturbance, or anxiety 08/29/2024 Incontinence of feces 11/21/2023 Memory deficit 11/21/2023 Spondylosis of lumbar region without myelopathy or radiculopathy 02/21/2023 Osteopenia 12/16/2022 Allergic rhinitis 01/14/2022 Hearing aid worn 10/27/2021 History of COVID-19 10/27/2021 Depression, major, in partial remission 11/22/19 History of Lyme disease 11/22/2019 History of squamous cell carcinoma 11/22/2019 Insomnia 11/22/2019 Sensorineural hearing loss, bilateral 08/14/2012 Disorder of bone and cartilage 03/27/2007 Encounters Date Type Department Care Team Description 04/10/2025 11:45 AM CDT Ancillary Procedure [address] [place] [id number] Cerebral brain hemorrhage (HCC) 04/10/2025 10:00 AM CDT Ancillary Procedure [address] [place] [address] Cerebral brain hemorrhage (HCC) 04/10/2025 Results Follow-Up [address] [phone] Rasheeda Montiel MA MRI BRAIN W/O CON 03/20/2025 2:00 PM CDT Office Visit [facility] - [address] [place] [phone] Ho Morgan MD Cerebral brain hemorrhage (HCC) (Primary Dx) from Last 3 Months Social History Tobacco Use Types Packs/Day Years Used Date Smoking Tobacco: Never Smokeless Tobacco: Never Tobacco Cessation:Counseling Given: Not Answered Comments Unknown Sex and Gender Information Value Date Recorded Sex Assigned at Not on file Legal Sex Female 10:41 AM CDT Gender Identity Not on file Sexual Orientation Not on file Last Filed Vital Signs Vital Sign Reading Time Taken Comments Blood Pressure 113/68 12/02/2024 11:27 AM CONSTRUCTION EQUIPMENT MECHANIC Pulse 70 12/02/2024 11:27 AM CONSTRUCTION EQUIPMENT MECHANIC Temperature 36.7 C (98.1 F) 12/02/2024 11:27 AM CONSTRUCTION EQUIPMENT MECHANIC Respiratory Rate 16 12/02/2024 11:2 7 AM CONSTRUCTION EQUIPMENT MECHANIC Oxygen Saturation 98% 12/02/2024 11: 27 AM CONSTRUCTION EQUIPMENT MECHANIC Inhaled Oxygen Concentration - - Weight 47.5 kg (104 lb 12.8 oz) 025 10:20 AM CONSTRUCTION EQUIPMENT MECHANIC Height 154.9 cm (5' 1) 06/27/2024 1:23 PM CDT Body Mass Index 19.8 06/27/2024 1:23 PM CDT Plan of Treatment Health Maintenance Due Date Last Done Comments Colonoscopy 1945 Lipid Screening 1945 Medicare Wellness Visit 1945 Depression Follow-Up (PHQ-9) 1946 Yearly Review of HCD 1995 Osteoporosis Screening 10/28/2024 10/28/2022 COVID-19 Vaccine ( season) 2025 08/07/2024, 02/27/2024, 08/24/2023, Additional history exists Adult Tetanus Booster 05/15/2028 05/15/2018 , 08/26/2011, 06/21/2006 Zoster Vaccine Completed 08/01/2019, 0806/2018, 11/21/2016 Hepatitis C Screening Completed 10/27/2021 RSV Vaccines Completed 09/01/2023 Influenza Vaccine Completed 08/07/2024, , 07/31/2022, Additional history exists Pneumococcal 50+ Years Completed , 06/27/2018, 06/18/2015, Additional history exists Meningococcal B Vaccine Aged Out No l onger eligible based on patient's age to complete this topic Procedures Procedure Name Priority Date/Time Associated Diagnosis Comments MRI BRAIN W/O CON Routine 04/10/2025 12: 06 PM CDT Cerebral brain hemorrhage (HCC) EEG AWAKE AND DROWSY ROUTINE Routine 04/10/2025 10:45 AM CDT Cerebral brain hemorrhage (HCC) from Last 3 Months Results * MRI BRAIN W/O CON (04/10/2025 [...] not included. PATIENT NAME: Kylie Tabor LOCATION: [place] TEST DATE: 04/10/2025 : 1945 TECH NAME: [...] Electronically signed By: Ho Morgan MD Neurologist, [facility] 8:54 AM 04/11/2025 Ho Morgan MD EEG ORDERABLE Final Result from Last 3 Months Insurance [facility] [employer] Care Teams Exhibition Designer Relationship Specialty Start Date End Date Ed Walsh MD [address] [place] [address] PCP - General Family Medicine 05/27/24
--- OUTSIDE RECORDS SUMMARY | 2025-04-17 03:04 | XMS_ITS | Encounter Summary ---
Author Organization [facility] Address [address] [place] [address] Care Team Providers Care Checkerer Hand Name Role Phone Ed Walsh MD Primary Care Provider + Reason for Visit * Reason Onset Date Comments Test results 04/10/2025 Encounter Details Date Type Department Care Team (Late st Contact Info) Description 04/10/2025 Results Follow-Up [facility] - [address] [place] [phone] Rasheeda Montiel MA MRI BRAIN W/O CON Social History Tobacco Use Types Packs/Day Years Used Date Smoking Tobacco: Never Smokeless Tobacco: Never Comments Unknown Sex and Gender Information Value Date Recorded Sex Assigned at Not on file Legal Sex Female 10:41 AM CDT Gender Identity Not on file Sexual Orientation Not on file documented as of this encounter Miscellaneous Notes * Telephone Encounter - Rasheeda Montiel MA - 04/10/2025 3:35 PM CDT Called pt's Abdifatah and it went straight to voice mail. I decided to send the message via [employer], as it is listed as the preferred contact method. I provided the previous information and advised them to reach out to me if they have any questions. ----- Message from Ho Morgan sent at 04/10/2025 3:22 PM CDT ----- Please call her and let her know that her swelling in her brain is shrinking. This is expected evolution, and is good news. Please have her see me in follow-up in the next couple of month or as we had planned during my lastnote. ----- Message ----- From: Haylee Henry In Sent: 04/10/2025 2:56 PM CDT To: Ho Morgan MD documented in this encounter Plan of Treatment Not on file documented as of this encounter Visit Diagnoses Not on filedocumented in this encounter Care Teams Checkerer Hand Relationship Specialty Start Date End Date Ed Walsh MD [address] [place] [address] PCP - General Family Medicine 05/27/24 documented as of this encounter
--- OUTSIDE RECORDS SUMMARY | 2025-04-17 03:04 | XMS_ITS | Referral Summary ---
Author Organization [facility] Address [address] [place] [address] Care Team Providers Care Hack Saw Operator Name Role Phone Ed Walsh MD Primary Care Provider + Encounters Date Type Department Care Team Description 04/10/2025 Results Follow-Up [address] [place] [phone] Rasheeda Montiel MA MRI BRAIN W/O CON 04/10/2025 11:45 AM CDT Ancillary Procedure [address] [address] Cerebral brain hemorrhage (HCC) 04/10/2025 10:00 AM CDT Ancillary Procedure [address] [address] Cerebral brain hemorrhage (HCC) 03/20/2025 2:00 PM CDT Office Visit [address] [place] [phone] Ho Morgan MD Cerebral brain hemorrhage (HCC) (Primary Dx) from Last 3 Months Allergies No known active allergies Medications zolpidem [...] mcg/actuation (ASTELIN) 137 mcg (0.1 %) Nasal [place] nasal spray SPRAY 1 SPRAY INTO EACH [...] 60 tablet 2 10/09/20 24 Active rizatriptan (MAXALT-PEELED POTATO INSPECTOR) 10 mg oral disintegrating tablet DISSOLVE 1 [...] MRI if needed. You will need a delivery motorcycle driver. 1 tablet 12/19/19 25 Active naloxone (NARCAN) 4 mg/actuation Nasal [place] Instill 1 spray (4 mg) into one nostril as directed. Seek emergency care immediately after use. 2 each 1 12/19/19 25 Active Active Problems Problem Noted Date Diagnosed [...] 08/14/2012 Disorder of bone and cartilage 03/27/2007 Social History Tobacco Use Types Packs/Day Years [...] Comments Blood Pressure 113/68 12/02/2024 11:27 AM JACK SPINNER Pulse 70 12/02/2024 11:27 AM JACK SPINNER Temperature 36.7 C (98.1 F) 12/02/2024 11:27 AM JACK SPINNER Respiratory Rate 16 12/02/2024 11:2 7 AM JACK SPINNER Oxygen Saturation 98% 12/02/2024 11: 27 AM JACK SPINNER Inhaled Oxygen Concentration - - Weight 47.5 kg (104 lb 12.8 oz) 025 10:20 AM JACK SPINNER Height 154.9 cm (5' 1) 06/27/2024 1:23 PM CDT Body Mass Index 19.8 06/27/2024 1:23 PM CDT Plan of Treatment Not on file Procedures [...] hemorrhage. Report signed by: Navi Nieves MD us Ho Morgan MD MRI ORDERABLE Final Result * EEG AWAKE AND DROWSY ROUTINE (04/10/2025 10:45 AM CDT) Anatomical Region Laterality Modality Magnetic Resonan ce Narrative 04/11/2025 8:57 AM CDT Table formatting from the original result was not included. PATIENT NAME: Kylie Tabor LOCATION: [place] TEST DATE: 04/10/2025 : 1945 TECH NAME: [...] Electronically signed By: Ho Morgan MD Neurologist, [facility] 8:54 AM 04/11/2025 Ho Morgan MD EEG ORDERABLE Final Result from Last 3 Months Insurance [facility] [employer] Care Teams Hack Saw Operator Relationship Specialty Start Date End Date Ed Walsh MD [address] [place] [address] PCP - General Family Medicine 05/27/24
--- NOTE | 2025-04-17 03:25 | CRLHL7_ITS ---
For Patients: As a result of the Century Cures Act, medical imaging exams and procedure reports are released immediately into your electronic medical record. You may view this report before your referring provider. If you have questions, please contact your health care provider. INDICATION: Recent intracranial bleed. New sudden headache. TECHNIQUE: CT head without contrast. COMPARISON: CT head 03/16/2025. FINDINGS: Maturing right occipital encephalomalacia and setting of previously documented occipital intraparenchymal hematoma. No acute intracranial hemorrhage is identified. No CT evidence of acute territorial infarct. Stable prominence of the ventricular system. No midline shift. Visualized paranasal sinuses and mastoid air cells are well ventilated. No acute calvarial fracture. IMPRESSION: 1. Continued evolution of right occipital encephalomalacia in setting of previous right occipital parenchymal hematoma. No acute intracranial hemorrhage appreciated. No acute intracranial abnormality. Please note that all CT scans at this facility use dose modulation, iterative reconstruction, and/or weight-based dosing when appropriate to reduce radiation dose to as low as reasonably achievable. Dictated by John Dukes MD @ 04/17/2025 3:53:45 AM (Electronically Signed)
--- NOTE | 2025-04-17 03:34 | ED.GENADULT ---
HPI - General Adult General Chief complaint: Headache/Migraine Stated complaint: Headache Time Seen by Provider: 04/17/25 03:17 History of Present Illness HPI narrative: Patient arrives via [facility] with c/o headache. Patient began screaming and c /o HERNANDEZ at 2100 this evening. Patient has h/o dementia and CVA. Patient was given ativan by per at 0200 . Patient arrives sleeping and will move extremities and squeeze eyelids shut during assessment. At PCP yesterday. 79-year-old woman presenting to the emergency department via EMS with complaint of severe headache. Apparently had not gone to sleep adn then experienced abrupt onset of severe headache at her right forehead. Underlying history of Alzheimer's dementia exacerbated by rather significant iatrogenic brain bleed about 3 months ago. Prolonged hospitalization following this. Does not get headaches outside of the last bleed. Arrives not really responsive as had given her half a mg of Ativan. He admits that this is the reaction he was going for perhaps he did not wait long enough. He had been understandably alarmed. She was apparently in usual state of health prior to this. Has home health most of the day. Related Data Home Medications ?Medication ?Instructions ?Recorded ?Confirmed cetirizine 10 mg tablet (Zyrtec) 10 mg PO DAILY PRN 03/04/24 04/16/25 Previous Rx's ?Medication ?Instructions ?Recorded gabapentin 300 mg capsule 300 mg PO QHS #90 caps 02/24/25 lorazepam 0.5 mg tablet 0.25 - 0.5 mg (0.5 - 1 x 0.5 mg) 02/24/25 PO QHS PRN agitation #30 tabs olanzapine 5 mg tablet 5 mg PO BID #60 tabs 02/24/25 mirtazapine 30 mg tablet 30 mg PO QHS #30 tabs 03/20/25 sertraline 100 mg tablet 100 mg PO DAILY #90 tabs 04/16/25 Allergies Allergy/AdvReac Type Severity Reaction Status Date / Time pollen extracts Allergy Intermediate Verified 04/16/25 11:56 Review of Systems Status of ROS: Reports: unobtainable due to mental status 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 ?I61.1 - Nontraumatic intracerebral hemorrhage in hemisphere, cortical (ICD-10) Generalized anxiety disorder ?F41.1 - Generalized anxiety disorder (ICD-10) Major depression, recurrent ?F33.9 - Major depressive disorder, recurrent, unspecified (ICD-10) Allergic rhinitis ?J30.9 - Allergic rhinitis, unspecified (ICD-10) Sensorineural hearing loss (SNHL) of both ears ?H90.3 - Sensorineural hearing loss, bilateral (ICD-10) Fracture of rib ?S22.39XA - Fracture of one rib, unspecified side, initial encounter for closed fracture (ICD-10) Atopic dermatitis ?L20.9 - Atopic dermatitis, unspecified (ICD-10) Actinic keratoses ?L57.0 - Actinic keratosis (ICD-10) Recurrent cold sores ?B00.1 - Herpesviral vesicular dermatitis (ICD-10) Bilateral cataracts ?H26.9 - Unspecified cataract (ICD-10) Incontinence of feces (11/21/23) ?R15.9 - Full incontinence of feces (ICD-10) 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/22/19) ?Z85.89 - Personal history of malignant neoplasm of other organs and systems (ICD-10) History of Lyme disease (11/22/19) ?Z86.19 - Personal history of other infectious and parasitic diseases (ICD-10) History of COVID-19 (10/27/21) ?Z86.16 - Personal history of COVID-19 (ICD-10) Hearing aid worn (10/27/21) ?Z97.4 - Presence of external hearing-aid (ICD-10) Osteoporosis (11/22/19) ?M81.0 - Age-related osteoporosis without current pathological fracture (ICD-10) Osteoarthritis of left hip ?M16.12 - Unilateral primary osteoarthritis, left hip (ICD-10) 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 ?L03.90 - Cellulitis, unspecified (ICD-10) ?A28.0 - Pasteurellosis (ICD-10) ?W55.01XA - Bitten by cat, initial encounter (ICD-10) Osteoporosis (2012) ?M81.0 - Age-related osteoporosis without current pathological fracture (ICD-10) Insomnia ?G47.00 - Insomnia, unspecified (ICD-10) Surgical History History of total left hip replacement (03/04/24) ?Z96.642 - Presence of left artificial hip joint (ICD-10) H/O excision of ganglion cyst (04/03/97) ?Z98.890 - Other specified postprocedural states (ICD-10) History of laminectomy ?Z98.890 - Other specified postprocedural states (ICD-10) 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) ?Z96.641 - Presence of right artificial hip joint (ICD-10) Status post dilation and curettage (1989) ?Z98.890 - Other specified postprocedural states (ICD-10) History of microdiscectomy (2007) ?Z98.890 - Other specified postprocedural states (ICD-10) History of hysterectomy (1989) ?Z90.710 - Acquired absence of both cervix and uterus (ICD-10) Family History Father Depression Social History Narrative: Exercises regularly- 3-4/ week, 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 In the past 12 months, utilities in danger of being shut off: unable to answer In past 12 months, lack of transportation kept you from medical appts, meetings, work, or getting things needed for daily living: unable to answer In the past 12 mos, have been you worried that your food would run out before you had money to buy more?: unable to answer In the past 12 mos, the food you bought just didn't last and you didn't have money to buy more?: unable to answer Smoking Status: Never smoker Do you use any of these nicotine containing products: None Second hand tobacco smoke exposure: No How often do you have a drink containing alcohol: never AUDIT-C Alcohol total score: 0 Non-prescribed substance use: denies use How often does anyone, including family, friends and others, physically hurt you: unable to answer How often does anyone, including family, friends and others, insult or talk down to you: unable to answer How often does anyone, including family, friends and others, threaten you with harm: unable to answer How often does anyone, including family, friends and others, scream or curse at you: unable to answer service: No Exam Narrative: Exam Narrative: Extremely pale. Eyes are closed. Able to see though that she has equal in 2 mm pupils. Supporting her own airway. Is making movements with all extremities. No edema. Not interacting. Heart in regular rate and rhythm. Lungs appear clear. No indication of trauma on her person. Const: Vital Signs, click to edit/add: Vital Signs - 24 hr 04/17/25 03:08 04/17/25 04:46 04/17/25 04:47 Temperature 97.0 F L Pulse Rate 72 72 Pulse Rate [Right Pulse Oximeter] 70 Respiratory Rate 16 Blood Pressure 90/60 Blood Pressure [Ri ght Upper Arm] 159/86 H Pulse Oximetry 98 96 96 Oxygen Delivery Me thod Room Air 04/17/25 05:00 04/17/25 05:01 04/17/25 05:15 Temperature Pulse Rate 73 73 70 Pulse Rate [Right Pulse Oximeter] Respiratory Rate Blood Pressure 101/61 Blood Pressure [Ri ght Upper Arm] Pulse Oximetry 94 95 97 Oxygen Delivery Me thod 04/17/25 05:30 04/17/25 05:45 04/17/25 06:00 Temperature Pulse Rate 68 69 66 Pulse Rate [Right Pulse Oximeter] Respiratory Rate Blood Pressure Blood Pressure [Ri ght Upper Arm] Pulse Oximetry 97 98 98 Oxygen Delivery Me thod 04/17/25 06:01 04/17/25 06:15 04/17/25 06:30 Temperature Pulse Rate 65 63 66 Pulse Rate [Right Pulse Oximeter] Respiratory Rate Blood Pressure 100/62 Blood Pressure [Ri ght Upper Arm] Pulse Oximetry 98 99 97 Oxygen Delivery Me thod 04/17/25 06:45 04/17/25 07:00 04/17/25 07:01 Temperature Pulse Rate 65 67 68 Pulse Rate [Right Pulse Oximeter] Respiratory Rate 18 Blood Pressure 102/66 Blood Pressure [Ri ght Upper Arm] Pulse Oximetry 98 97 97 Oxygen Delivery Me thod Room Air 04/17/25 07:15 04/17/25 07:30 04/17/25 07:45 Temperature Pulse Rate 64 63 70 Pulse Rate [Right Pulse Oximeter] Respiratory Rate Blood Pressure Blood Pressure [Ri ght Upper Arm] Pulse Oximetry 98 98 94 Oxygen Delivery Me thod 04/17/25 08:00 04/17/25 08:01 04/17/25 08:15 Temperature Pulse Rate 69 66 65 Pulse Rate [Right Pulse Oximeter] Respiratory Rate 18 Blood Pressure 124/74 Blood Pressure [Ri ght Upper Arm] Pulse Oximetry 92 94 90 Oxygen Delivery Me thod Room Air Documenting provider has reviewed patient's vital signs: yes Course Vital Signs Vital signs: Initial Vital Signs Temperature 97.0 F L 04/17/25 03:08 Temperature Source Temporal Artery Scan 04/17/25 03:08 Pulse Rate 70 04/17/25 03:08 Respiratory Rate 16 04/17/25 03:08 Blood Pressure 159/86 H 04/17/25 03:08 Blood Pressure Mean 110 H 04/17/25 03:08 Blood Pressure Position Semi-Fowlers 04/17/25 03:08 Pulse Oximetry 98 04/17/25 03:08 Oxygen Delivery Method Room Air 04/17/25 03:08 Vital Signs Temperature 97.0 F L 04/17/25 03:08 Pulse Rate 70 04/17/25 03:08 Respiratory Rate 16 04/17/25 03:08 Blood Pressure 159/86 H 04/17/25 03:08 Pulse Oximetry 98 04/17/25 03:08 Oxygen Delivery Method Room Air 04/17/25 03:08 Temperature 97.0 F L 04/17/25 03:08 Pulse Rate 65 04/17/25 08:15 Respiratory Rate 18 04/17/25 08:01 Blood Pressure 124/74 04/17/25 08:01 Pulse Oximetry 90 04/17/25 08:15 Oxygen Delivery Method Room Air 04/17/25 08:01 Medical Decision Making MDM Narrative Medical decision making narrative: Unclear what has transpired here. History though as has been describes it is that presentation of this head bleed was not to similar but also included a lot of vomiting. I think it would be prudent to image her head just to be sure there is no secondary bleed here. Is not in any distress at this time. Head CT independently reviewed by me does not show new bleeding. Encephalomalacia is evident. On reassessment Mrs. Tabor continues to be in rather deep sleep. Snoring. Will continue to monitor. At this point I think would reassess when awake as to need for further evaluation. Radiology over-read below INDICATION: Recent intracranial bleed. New sudden headache. TECHNIQUE: CT head without contrast. COMPARISON: CT head 03/16/2025. FINDINGS: Maturing right occipital encephalomalacia and setting of previously documented occipital intraparenchymal hematoma. No acute intracranial hemorrhage is identified. No CT evidence of acute territorial infarct. Stable prominence of the ventricular system. No midline shift. Visualized paranasal sinuses and mastoid air cells are well ventilated. No acute calvarial fracture. IMPRESSION: 1. Continued evolution of right occipital encephalomalacia in setting of previous right occipital parenchymal hematoma. No acute intracranial hemorrhage appreciated. No acute intracranial abnormality. Please note that all CT scans at this facility use dose modulation, iterative reconstruction, and/or weight-based dosing when appropriate to reduce radiation dose to as low as reasonably achievable. Dictated by John Dukes MD @ 04/17/2025 3:53:45 AM On reassessment now in the morning. She has woke up. Seems still little groggy. Barring anything unusual will need assistance in wheelchair to car and anticipates giving breakfast at home. Medical Records Medical records reviewed: Yes I reviewed the patient's medical records Discharge Plan Discharge Clinical Impression: Headache, Side effect of medication Patient Disposition: Home w/ Parent or Adult Condition: Improved Additional Instructions: I am happy you were able to rest here in the emergency department. It would appear you may be sensitive to medication. Prescriptions: No Action sertraline 100 mg tablet 100 mg PO DAILY Qty: 90 0RF olanzapine 5 mg tablet 5 mg PO BID Qty: 60 1RF gabapentin 300 mg capsule 300 mg PO QHS Qty: 90 1RF lorazepam 0.5 mg tablet 0.25 - 0.5 mg PO QHS PRN (Reason: agitation) Qty: 30 0RF cetirizine [Zyrtec] 10 mg tablet 10 mg PO DAILY PRN mirtazapine 30 mg tablet 30 mg PO QHS Qty: 30 2RF Follow Up/Referrals: Ed Walsh MD [Primary Care Provider, Family Practice] Stand Alone Forms: [facility] Info Instructions
== END 2025-04-17 09:27 | disposition home or self-care (01) ==
PROVIDERS: Emergency Provider Family Medicine; PCP Family Medicine
DX: R51.9 Headache, unspecified (principal); T50.905A Adverse effect of unspecified drugs, medicaments and biological substances, initial encounter
CPT/HCPCS: 70450; 99283; 99284

== ENCOUNTER 2025-05-08 16:00 | Outpatient (CLI) | payer MEDICARE, BC, SELFPAY | END 2025-05-08 16:01 | disposition home or self-care (01) | LOC: NFLDREF 05-12 17:22 | PROVIDERS: PCP Family Medicine; Referring Provider Family Medicine; Visit Provider Family Medicine | DX: N39.0 Urinary tract infection, site not specified (principal) | CPT/HCPCS: 87086 ==

== ENCOUNTER 2025-06-24 13:32 | Outpatient (CLI) | payer MEDICARE, BC, SELFPAY | END 2025-06-24 13:33 | disposition home or self-care (01) | PROVIDERS: PCP Family Medicine; Visit Provider Student in an Organized Health Care Education/Training Program | DX: T17.928A Food in respiratory tract, part unspecified causing other injury, initial encounter (principal) | CPT/HCPCS: A0429 ==